=== PATIENT | female | born 1965 | race Caucasian/White ===

== ENCOUNTER 2023-04-15 15:23 | Outpatient (OUT) | payer BC, SELFPAY ==
--- NOTE | 2023-04-15 15:31 | XR_ITS ---
[facility] [place] [id number] Patient Name: LAWRENCE HARRISON MRN: [id number] date: 1965 Sex: F Assigned Patient Location: [facility] Current Patient Location: [facility] Accession/Order Number: [id number] Exam Date: 04/15/2023 15:34 Report Date: 04/15/2023 16:04 At the request of: SHAIKH CEASAR Procedure: XR chest 2V EXAM: XR chest 2V HISTORY: COPD Exacerbation COMPARISON: None. TECHNIQUE: Frontal and lateral views of the chest. FINDINGS: No focal consolidations or pleural effusions. Borderline heart size. Visualized osseous structures are unremarkable. IMPRESSION: No acute disease. Electronically authenticated by: TAMAR CALLEJAS Date: 04/15/2023 16:04
== END 2023-04-15 15:24 ==
LOC: RAD 15:26
PROVIDERS: PCP Family Medicine; Visit Provider Internal Medicine
DX: J44.1 Chronic obstructive pulmonary disease with (acute) exacerbation (principal)
CPT/HCPCS: 71046

== ENCOUNTER 2023-05-12 16:51 | Outpatient (OUT) | payer BC, SELFPAY ==
[2023-05-12 17:26] LABS: Anion Gap 8.5; BUN Creatinine Ratio 21.8; Calcium 9.2 mg/dL (8.5-10.1); Carbon Dioxide 34.4 mmol/L (21.0-32.0); Chloride 98 mmol/L (98-107); Estimated GFR (African America >60 (>=60); Estimated GFR (Non-African Ame 56 (>=60); Glucose 75 mg/dL (74-106); Potassium 3.9 mmol/L (3.5-5.1); Sodium 137 mmol/L (136-145)
== END 2023-05-12 16:52 | disposition home or self-care (01) ==
PROVIDERS: PCP Internal Medicine; Visit Provider Internal Medicine
DX: I10 Essential (primary) hypertension (principal)
CPT/HCPCS: 36415; 80048

== ENCOUNTER 2023-07-01 23:19 | Outpatient (OUT) | payer BC, SELFPAY | END 2023-07-01 23:20 | disposition home or self-care (01) | LOC: SLEEP 23:19 | PROVIDERS: PCP Internal Medicine; Visit Provider Internal Medicine | DX: G47.33 Obstructive sleep apnea (adult) (pediatric) (principal) | CPT/HCPCS: 95810 ==

== ENCOUNTER 2023-08-04 11:32 | Outpatient (OUT) | payer BC, SELFPAY ==
--- NOTE | 2023-08-04 12:00 | XR_ITS ---
[facility] [place] [id number] Patient Name: LAWRENCE HARRISON MRN: [id number] date: 1965 Sex: F Assigned Patient Location: [facility] Current Patient Location: [facility] Accession/Order Number: [id number] Exam Date: 08/04/2023 11:45 Report Date: 08/04/2023 13:20 At the request of: JOLANTA LEE Procedure: XR lumbar spine min 4V EXAM: XR lumbar spine min 4V HISTORY: Lumbar pain COMPARISON: None. TECHNIQUE: 4 views Findings/impression: Satisfactory alignment. Maintained vertebral body heights and disc spaces. No acute fracture or subluxation. No obstructive bowel gas pattern. Electronically authenticated by: LIS HURLEY Date: 08/04/2023 13:20
== END 2023-08-04 11:33 | disposition home or self-care (01) ==
LOC: RAD 11:33
PROVIDERS: PCP Internal Medicine; Visit Provider Family Medicine
DX: M51.36 Other intervertebral disc degeneration, lumbar region (principal)
CPT/HCPCS: 72110

== ENCOUNTER 2023-08-25 14:24 | Outpatient (OUT) | payer BC, SELFPAY ==
--- NOTE | 2023-08-25 15:46 | PM.CN ---
Consult Note: HPI Data of Consult Patient: new to practice Consult date: 08/25/23 Requesting Physician: Corine Frye MD Primary Care Provider: Shaikh Junior MD Consult Narrative Reason for consult: low back, bilateral lower extremity pain Narrative: 57yof who presents for evaluation. worsening low back pain that radiates into bilateral lower extremities. denies any trauma. physical therapy begins tomorrow. has tried robaxin, which helps somewhat, but makes her sleepy. tried tramadol with limited benefit. lumbar XR reviewed, which did not show significant acute pathology. denies adverse med side effects. cc:: CC: Corine Frye MD Review of Systems ROS Status of ROS 10 or more systems reviewed and unremarkable except as noted in history and below Meds Home Medications and Allergies Home Medications Medication Instructions Recorded Confirmed Type gabapentin 300 mg capsule 300 mg PO TID #90 caps 08/25/23 Rx Exam Narrative Exam Narrative: Psych-alert and oriented x 3. Attentive and appropriate, constitutionally normal, displays normal mood and affect per situation. There are no obvious deficits in memory, reasoning, or intellect.? Skin-no obvious rashes, bruising, erythema noted to the patient's area of pain.? Extremities- extremities are warm with minimal edema and palpable pulses. Lumbar-tenderness to palpation noted in the lumbar spine and paraspinal musculature. Pain is elicited with flexion, extension, and lateral rotation of the lumbar spine. Range of motion is diminished with these motions. Facet loading maneuvers are positive..? Strength-noted to be unremarkable with the exception of decreased strength rated at 4 out of 5 in bilateral quadriceps femoris, anterior tibialis. Sensory-no notable sensory deficits in the bilateral lower extremities to touch or pinprick in all dermatomal distributions with the exception to decreased sensation to the bilateral L4, 5 dermatomal distribution Coordination remains intact.? Gait remains non-antalgic Assessment and Plan Assessment and Plan (1) Lumbar stenosis with neurogenic claudication: (2) Lumbar spondylosis: Plan 57yof who presents for evaluation. starting PT tomorrow, as noted. discussed that given her symptoms and exam findings, likely spinal pathology that is causing her symptoms. ultimately will likely require lumbar MRI without contrast, but will first go through PT to assess benefits. medications reviewed. will have her trial gabapentin 300mg tid. she expressed understanding. will have her follow up after lumbar MRI is complete. also discussed that if her PCP preferred, we could place order for lumbar mri without contrast, although she is seeing PCP soon.
== END 2023-08-25 14:25 | disposition home or self-care (01) ==
PROVIDERS: PCP Internal Medicine; Visit Provider Anesthesiology
DX: M47.816 Spondylosis without myelopathy or radiculopathy, lumbar region (principal); M48.062 Spinal stenosis, lumbar region with neurogenic claudication
CPT/HCPCS: G0463

== ENCOUNTER 2023-08-26 07:46 | Outpatient (RCR) | payer BC, SELFPAY | END 2023-09-23 16:04 | disposition home or self-care (01) | LOC: PT 07:46 | PROVIDERS: PCP Internal Medicine; Visit Provider Family Medicine | DX: M54.9 Dorsalgia, unspecified (principal); R26.89 Other abnormalities of gait and mobility; G32.89 Other specified degenerative disorders of nervous system in diseases classified elsewhere; R26.9 Unspecified abnormalities of gait and mobility; R29.3 Abnormal posture | CPT/HCPCS: 97010; 97014; 97110; 97161 ==

== ENCOUNTER 2023-09-02 21:27 | Outpatient (OUT) | payer BC, SELFPAY | END 2023-09-02 21:28 | disposition home or self-care (01) | LOC: SLEEP 21:27 | PROVIDERS: PCP Family Medicine; Visit Provider Internal Medicine | DX: G47.33 Obstructive sleep apnea (adult) (pediatric) (principal) | CPT/HCPCS: 95811 ==

== ENCOUNTER 2023-09-05 12:47 | Outpatient (RCR) | payer BC, SELFPAY | END 2023-09-06 13:38 | disposition home or self-care (01) | LOC: PT 12:47 | PROVIDERS: PCP Family Medicine; Visit Provider Family Medicine | DX: M54.9 Dorsalgia, unspecified (principal) | CPT/HCPCS: 97750 ==

== ENCOUNTER 2023-10-09 10:19 | Outpatient (OUT) | payer BC, SELFPAY ==
--- NOTE | 2023-10-09 10:59 | PM.CN ---
Consult Note: HPI Data of Consult Patient: known to practice within the last 3 years Requesting Physician: Rachael Robles NP Primary Care Provider: Mane Kearney MD Consult Narrative Reason for consult: f/u Narrative: Jazz Juares a pleasant 57 year old female presents for evaluation and management of chronic low back pain. She has had over 3 months of moderate to severe low back pain with functional impairment and inadequate response to conservative care including NSAIDS (unless there are contraindication such as concurrent blood thinners), multiple oral or topical pain medications, and home exercise program/physical therapy.?Today rating pain 7/10 in low back and bilateral legs, reports cramping weakness numbness and tingling with ambulation. Patient has completed 8 PT sessions with no relief in symptoms or pain. Patient would like to discuss additional options. cc:: CC: Rachael Robles NP Review of Systems ROS Status of ROS 10 or more systems reviewed and unremarkable except as noted in history and below Musculoskeletal Reports: back pain Meds Home Medications and Allergies Home Medications Medication Instructions Recorded Confirmed Type gabapentin 300 mg capsule 300 mg PO TID #90 caps 08/25/23 Rx amlodipine 5 mg tablet 5 mg PO DAILY 08/28/23 08/28/23 History celecoxib 200 mg capsule 200 mg PO Q12H PRN pain 08/28/23 08/28/23 History cholecalciferol (vitamin D3) 50 50 mcg PO DAILY 08/28/23 08/28/23 History mcg (2,000 unit) tablet losartan 100 1 tab PO DAILY 08/28/23 08/28/23 History mg-hydrochlorothiazide 25 mg tablet methocarbamol 750 mg tablet 750 mg PO Q6H PRN spasms 08/28/23 08/28/23 History umeclidinium 62.5 mcg-vilanterol 1 inh inhalation Q24H 08/28/23 08/28/23 History 25 mcg/actuation powdr for inhalation (Anoro Ellipta) duloxetine 60 mg capsule,delayed 60 mg PO DAILY #30 caps 10/09/23 Rx release Allergies Allergy/AdvReac Type Severity Reaction Status Date / Time ciprofloxacin [From Cipro] Allergy Verified 08/28/23 10:13 Exam Constitutional Documenting provider has reviewed patient's vital signs: yes Common normals: no apparent distress, oriented x3, healthy appearing, alert and well nourished General appearance: cooperative HENMT Common normals: normocephalic, hearing grossly normal bilaterally and moist oral mucous membranes Head and scalp: normocephalic Eye Common normals: PERRL Pupil: PERRL Neck & C-Spine Common normals: full ROM General: normal visual inspection Chest Common normals: inspection of chest normal Respiratory Common normals: normal respiratory effort, no retractions and no use of accessory muscles Back & Pelvis Other: Lumbar-tenderness to palpation noted in the lumbar spine and paraspinal musculature. Pain is elicited with flexion, extension, and lateral rotation of the lumbar spine. Range of motion is diminished with these motions. Facet loading maneuvers are positive..? Strength-noted to be unremarkable with the exception of decreased strength rated at 4 out of 5 in bilateral quadriceps femoris, anterior tibialis. Sensory-no notable sensory deficits in the bilateral lower extremities to touch or pinprick in all dermatomal distributions with the exception to decreased sensation to the bilateral L4, 5 dermatomal distribution Neuro Common normals: oriented x3, CN's II-XII intact bilaterally, moves all extremities, no focal motor deficits, no sensory deficits noted and deep tendon reflexes 2+ bilaterally Sensorium/orientation: alert Motor exam: strength 5/5 throughout and no movement abnormalities noted Psych Common normals: mental status grossly normal, thought process normal, cooperative, affect normal, speech normal and activity/motor behavior normal Speech: normal speech Thought process: normal thought process Assessment and Plan Assessment and Plan (1) Lumbar stenosis with neurogenic claudication: (2) Lumbar spondylosis: Plan will obtain lumbar MRI without contrast as patient has failed to respond to conservative measures/medications, has completed 8 sessions of PT without benefit, continues to have chronic pain that disrupts her life. TWAN today 42% with moderate to severe pain, pain with ambulation, pain with ADLs, pain impacting sleep and social life. We will review MRI in the office to discuss injection/procedure therapy start duloxetine 60mg HS continue celebrex and flexeril f/u after MRI
== END 2023-10-09 10:20 | disposition home or self-care (01) ==
PROVIDERS: PCP Family Medicine; Visit Provider Nurse Practitioner
DX: M48.062 Spinal stenosis, lumbar region with neurogenic claudication (principal); M47.816 Spondylosis without myelopathy or radiculopathy, lumbar region
CPT/HCPCS: G0463

== ENCOUNTER 2023-10-16 13:18 | Outpatient (OUT) | payer BC, SELFPAY ==
--- NOTE | 2023-10-16 13:22 | MR_ITS ---
The [address] [address] Patient Name: LAWRENCE HARRISON MRN: [id number] date: 1965 Sex: F Assigned Patient Location: MRI Current Patient Location: MRI Accession/Order Number: [id number] Exam Date: 10/16/2023 13:40 Report Date: 10/16/2023 14:57 At the request of: ASH MARTÍNEZ Procedure: MR lumbar spine wo con EXAMINATION: MR lumbar spine wo con HISTORY: Lumbar Stenosis COMPARISON: 08/04/2023 TECHNIQUE: A variety of imaging planes and parameters were utilized for visualization of suspected pathology. FINDINGS: For the purposes of numbering, sagittal T2 image # 8 extends from the T11 vertebral body superiorly to the S4 level inferiorly. PARASPINAL AREA: Normal with no visible mass. BONES: Normal alignment with no acute fracture, spondylolisthesis or bone edema CORD/CAUDA EQUINA: Normal caliber, contour, and signal intensity. DISC LEVELS: 12-L1: No significant disc/facet abnormality, spinal stenosis, or foraminal stenosis. L1-L2: No significant disc/facet abnormality, spinal stenosis, or foraminal stenosis. L2-L3: Early degenerative disc disease is present without focal protrusion or neural impingement. L3-L4: Early degenerative disc disease is present without focal protrusion or neural impingement. L4-L5: Disc desiccation. Posterior broad-based disc protrusion extending up to 2 mm. Mild trefoil narrowing of the central canal. No foraminal stenosis L5-S1: No significant disc/facet abnormality, spinal stenosis, or foraminal stenosis. MR/MR lumbar spine wo con IMPRESSION: Degenerative changes most significant at L4-L5 where mild posterior central disc protrusion results in mild trefoil narrowing of the central canal Electronically authenticated by: NIA RODRIGUEZ Date: 10/16/2023 14:57
== END 2023-10-16 13:19 | disposition home or self-care (01) ==
LOC: MRI 13:18
PROVIDERS: PCP Family Medicine; Visit Provider Nurse Practitioner
DX: M48.061 Spinal stenosis, lumbar region without neurogenic claudication (principal); M51.36 Other intervertebral disc degeneration, lumbar region
CPT/HCPCS: 72148

== ENCOUNTER 2023-11-06 09:07 | Outpatient (OUT) | payer BC, SELFPAY ==
--- OUTSIDE RECORDS SUMMARY | 2023-11-06 09:11 | XMS_ITS | CCD ---
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 Operator Name Role Phone JESUS, DR JOLANTA Avina Primary Care Unavailable EDDIE ., DR VAMSHI Correa Consulting Unavailable JESUS, DR JOLANTA Avina Admitting Unavailable JESUS, DR JOLANTA Avina Attending Unavailable SUSY, DR JH Hunter Consulting Unavailable JESUS, DR JOLANTA Avina Consulting Unavailable KOLTON ., MR BUCKLEY Consulting Unavailable STRAWSER, DEL Consulting Unavailable CHOU, MALCOLM Consulting Unavailable JESUS, DR JOLANTA Avina Admitting Unavailable JESUS, DR JOLANTA Avina Attending Unavailable JESUS, DR JOLANTA Avina Primary Care Unavailable CAMBRIA HEIGHTS, DR NIA Uriostegui Consulting Unavailable NADGERALD, DR JOLANTA Avina Consulting Unavailable Melva BACK, Corine Puentes Attending Unavailable DAYANARAR, JOLANTA Attending Unavailable Allergies Allergy Classification Reported Allergen(s) Allergy Type Date of Onset Reaction(s) Facility (1 source) Ciprofloxacin Drug Allergy 10-19-2014 [facility] Repository Problems Problem Classification Problem Date Documented Da te Episodic/Chronic Chronic obstructive pulmonary disease and bronchiectasis (6 sources) Chronic obstructive pulmonary disease, unspecified; 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: [Chronic obstructive pulmonary disease with (acute) lower respiratory infection] Onset: 11-20-2022 Chronic Essential hypertension (1 source) Essential (primary) hypertension; 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: [ESSENTIAL PRIMARY HYPERTENSION] Onset: 11-20-2022 Chronic Other aftercare (1 source) Other tank terminal gauger (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) drug therapy; 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: [OTH SENIOR LIVING CURRENT DRUG THERAPY] Onset: 11-20-2022 Episodic Other aftercare (1 source) terminal computer operator (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) use of opiate analgesic; 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: [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 ELECTRONICS TECHNICIAN CURRNT USE OPIATE ANALGES] Onset: 11-20-2022 Episodic Other lower respiratory disease (2 sources) Shortness of breath; 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: [SHORTNESS OF BREATH] Onset: 11-10-2022 Episodic Other screening for suspected conditions (not mental disorders or infectious disease) (1 source) Encounter for screening mammogram for malignant neoplasm of breast; 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: [ENC SCR MAMMO MALIG NEOPLASM BREAST] Onset: 02-01-2023 Episodic Pneumonia (except that caused by tuberculosis or sexually transmitted disease) (1 source) Pneumonia, unspecified organism; 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: [PNEUMONIA UNSPECIFIED ORGANISM] Onset: 11-20-2022 Episodic Residual codes; unclassified (1 source) Family history of malignant neoplasm of digestive organs; 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: [FAM HX MALIG NEOPLASM DIGESTIV ORGN] Onset: 02-01-2023 Episodic Residual codes; unclassified (1 source) Family history of malignant neoplasm of breast; 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: [FAMILY HX MALIG NEOPLASM OF BREAST] Onset: 02-01-2023 Episodic Residual codes; unclassified (1 source) Family history of malignant neoplasm of trachea, bronchus and lung; 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: [FAM HX MALIG NEOPLSM TRACH BRON LNG] Onset: 02-01-2023 Episodic Residual codes; unclassified (1 source) Family history of stroke; 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: [FAMILY HISTORY OF STROKE] Onset: 11-20-2022 Episodic Residual codes; unclassified (1 source) Edema, unspecified; 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: [EDEMA UNSPECIFIED] Onset: 11-20-2022 Episodic Respiratory failure; insufficiency; arrest (adult) (1 source) Acute respiratory failure with hypoxia; 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: [ACUTE RESPIRATORY FAIL W/HYPOXIA] Onset: 11-20-2022 Episodic Substance-related disorders (1 source) Nicotine dependence, cigarettes, uncomplicated; 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: [NICOTINE DEPEND CIGARETTES UNCOMP] Onset: 11-20-2022 Chronic Unclassified (1 source) CONTACT W/AND (SUSP) EXPOS COVID-19; 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: [CONTACT W/AND (SUSP) EXPOS COVID-19] Onset: 11-20-2022 Results Test Name Value Interpretation Reference Range Facil ity HEMOGLOBINon 01-29-2023 Hemoglobin (Bld) [Mass/Vol] 14.6 g/dL Normal 12.0-16.0 [facility] Comment on above: Performed By: #### H GB #### [facility] [address] [place] [address] Dr. Evangelist Chicas MG MAMM SCREEN 3D MANJIT CADon 01-29-2023 MG MAMM SCREEN 3D MANJIT CAD Patient: LAWRENCE HARRISON Exam Date: 01/29/2023 : 1965 Gender:F Ordering : DR JOLANTA LEE . Admission #: [id number] Family : Order #: [id number] CLICK HERE TO VIEW EXAM RADIOLOGY REPORT PROCEDURE: MAMMOGRAM SCREENING 3D BILATERAL CAD COMPARISON: MG MAMM SCREEN MANJIT W CAD, 08/31/2019. MG MAMM SCREEN 3D MANJIT CAD, 09/05/2021. INDICATIONS: Screening mammography Calculator Name NCI Breast Cancer Risk Assessment Tool 5 Year Breast Cancer Risk 1.40% Lifetime Breast Cancer Risk 7.60% Personal Breast Cancer No Personal Ovarian Cancer No Treatments None Family Cancers Grandmother-maternal with breast cancer at age 65; Grandfather-maternal with lung cancer at age 63; Mother with rectal cancer at age 75. LOCATION: [facility] BREAST COMPOSITION: Scattered areas fibroglandular density. FINDINGS: DIAGNOSTIC CATEGORY 1--NEGATIVE. NO CHANGE FROM COMPARISON ASSESSMENT. Scattered benign-appearing calcifications are present. RIGHT BREAST: No significant suspicious finding. LEFT BREAST: No significant suspicious finding. RECOMMENDATIONS: ROUTINE MAMMOGRAM AND CLINICAL EVALUATION IN 12 MONTHS. PLEASE NOTE: A NORMAL MAMMOGRAM DOES NOT EXCLUDE THE POSSIBILITY OF BREAST CANCER. A CLINICALLY SUSPICIOUS PALPABLE LUMP SHOULD BE BIOPSIED. Dictated by: Nia Reagan MD on 01/29/2023 at 09:24 Approved by: Nia Reagan MD on 01/29/2023 at 09:29 Normal [facility] CBC AUTO DIFFon 11-14-2022 BASO # 0.0 103/ul Normal 0.0-0.1 [facility] Comment on above: Performed By: #### B MP #### [facility] [address] [address] [address] Evangelist Chicas Basophils/100 WBC (Bld) 0.1 % Critically low 0.2-2.0 [facility] Comment on above: Performed By: #### B MP #### [facility] [address] [place] [address] Dr. Evangelist Chicas EO # 0.0 103/ul Normal 0.0-0.7 [facility] Comment on above: Performed By: #### B MP #### [facility] [address] [address] [address] Evangelist Chicas Eosinophils/100 WBC (Bld) 0.1 % Critically low 0.9-7.0 [facility] Comment on above: Performed By: #### B MP #### [facility] [address] [place] [address] Dr. Evangelist Chicas Erythrocyte distribution width (RBC) [Ratio] 13.1 % Normal 11.0-15.0 [facility] Comment on above: Performed By: #### B MP #### [facility] [address] [place] [address] Dr. Evangelist Chicas Hematocrit (Bld) [Volume fraction] 41.4 % Normal 36.0-48.0 [facility] Comment on above: Performed By: #### B MP #### [facility] [address] [place] [address] Dr. Evangelist Chicas Hemoglobin (Bld) [Mass/Vol] 13.0 g/dL Normal 12.0-16.0 [facility] Comment on above: Performed By: #### B MP #### [facility] [address] [place] [address] Dr. Evangelist Chicas IG # 0.03 10e3/ul Normal 0.00-0.03 [facility] Comment on above: Performed By: #### B MP #### [facility] [address] [place] [address] Dr. Evangelist Chicas IG % 0.4 % Normal 0.0-0.5 [facility] Comment on above: Performed By: #### B MP #### [facility] [address] [place] [address] Dr. Evangelist Chicas LYMPH # 0.4 103/ul Critically low 1.2-3.8 [facility] Comment on above: Performed By: #### B MP #### [facility] [address] [place] [address] Dr. Evangelist Chicas Lymphocytes/100 WBC (Bld) 4.7 % Critically low 20.5-60.0 [facility] Comment on above: Performed By: #### B MP #### [facility] [address] [place] [address] Dr. Evangelist Chicas MANUAL DIFF REQ NO Normal [facility] Comment on above: Performed By: #### B MP #### [facility] [address] [place] [address] Dr. Evangelist Chicas MCH (RBC) [Entitic mass] 29.1 pg Normal 26.7-34.0 [facility] Comment on above: Performed By: #### B MP #### [facility] [address] [place] [address] Dr. Evangelist Chicas MCHC (RBC) [Mass/Vol] 31.4 g/dL Normal 29.9-35.2 [facility] Comment on above: Performed By: #### B MP #### [facility] [address] [place] [address] Dr. Evangelist Chicas MCV (RBC) [Entitic vol] 92.8 fL Normal 81.0-99.0 [facility] Comment on above: Performed By: #### B MP #### [facility] [address] [place] [address] Dr. Evangelist Chicas MONO # 0.1 103/ul Critically low 0.3-0.8 [facility] Comment on above: Performed By: #### B MP #### [facility] [address] [place] [address] Dr. Evangelist Chicas Monocytes/100 WBC (Bld) 1.8 % Normal 1.7-12.0 [facility] Comment on above: Performed By: #### B MP #### [facility] [address] [place] [address] Dr. Evangelist Chicas NEUT # 6.8 103/ul Critically high 1.4-6.5 [facility] Comment on above: Performed By: #### B MP #### [facility] [address] [place] [address] Dr. Evangelist Chicas Neutrophils/100 WBC (Bld) 92.9 % Critically high 43.0-75.0 [facility] Comment on above: Performed By: #### B MP #### [facility] [address] [place] [address] Dr. Evangelist Chicas Platelet mean volume (Bld) [Entitic vol] 11.3 fL Normal 9.5-13.5 [facility] Comment on above: Performed By: #### B MP #### [facility] [address] [place] [address] Dr. Evangelist Chicas PLT 109 103/ul Critically low 150-450 [facility] Comment on above: Performed By: #### B MP #### [facility] [address] [address] [address] Evangelist Chicas RBC 4.46 106/ul Normal 4.20-5.40 [facility] Comment on above: Performed By: #### B MP #### [facility] [address] [place] [address] Dr. Evangelist Chicas WBC 7.4 103/ul Normal 4.0-11.0 [facility] Comment on above: Performed By: #### B MP #### [facility] [address] [place] [address] Dr. Evangelist Chicas PROF CHEM 8 (BAS METB)on Anion gap [Moles/Vol] 11.8 mmol/L Normal [facility] Comment on above: Performed By: #### B MP #### [facility] [address] [place] [address] Dr. Evangelist Chicas Calcium [Mass/Vol] 9.3 mg/dL Normal 8.5-10.1 [facility] Comment on above: Performed By: #### B MP #### [facility] [address] [place] [address] Dr. Evangelist Chicas Chloride [Moles/Vol] 99 mmol/L Normal 98-107 [facility] Comment on above: Performed By: #### B MP #### [facility] [address] [place] [address] Dr. Evangelist Chicas CO2 [Moles/Vol] 31.6 mmol/L Normal 21.0-32.0 [facility] Comment on above: Performed By: #### B MP #### [facility] [address] [place] [address] Dr. Evangelist Chicas Creatinine [Mass/Vol] 0.75 mg/dL Normal 0.55-1.02 [facility] Comment on above: Performed By: #### B MP #### [facility] [address] [address] [address] Evangelist Chicas EGFR-AF SENEGALESE >60 Normal >=60 [facility] Comment on above: Performed By: #### B MP #### [facility] [address] [address] [address] Evangelist Chicas EGFR-NON AF SENEGALESE >60 Normal >=60 [facility] Comment on above: Performed By: #### B MP #### [facility] [address] [address] [address] Evangelist Chicas Glucose [Mass/Vol] 162 mg/dL Critically high 74-106 [facility] Comment on above: Performed By: #### B MP #### [facility] [address] [place] [address] Dr. Evangelist Chicas Potassium [Moles/Vol] 4.4 mmol/L Normal 3.5-5.1 [facility] Comment on above: Performed By: #### B MP #### [facility] [address] [place] [address] Dr. Evangelist Chicas Sodium [Moles/Vol] 138 mmol/L Normal 136-145 [facility] Comment on above: Performed By: #### B MP #### [facility] [address] [address] [address] Evangelist Chicas Urea nitrogen [Mass/Vol] 32.0 mg/dL Critically high 7.0-18.0 [facility] Comment on above: Performed By: #### B MP #### [facility] [address] [address] [address] Evangelist Chicas Urea nitrogen/Creatinin e [Mass ratio] 42.7 mg/mg Normal [facility] Comment on above: Performed By: #### B MP #### [facility] [address] [place] [address] Dr. Evangelist Chicas CBC AUTO DIFFon 11-13-2022 BASO # 0.0 103/ul Normal 0.0-0.1 [facility] Comment on above: Performed By: #### C BC #### [facility] [address] [place] [address] Dr. Evangelist Chicas Basophils/100 WBC (Bld) 0.1 % Critically low 0.2-2.0 [facility] Comment on above: Performed By: #### C BC #### [facility] [address] [place] [address] Dr. Evangelist Chicas EO # 0.0 103/ul Normal 0.0-0.7 [facility] Comment on above: Performed By: #### C BC #### [facility] [address] [place] [address] Dr. Evangelist Chicas Eosinophils/100 WBC (Bld) 0.0 % Critically low 0.9-7.0 [facility] Comment on above: Performed By: #### C BC #### [facility] [address] [place] [address] Dr. Evangelist Chicas Erythrocyte distribution width (RBC) [Ratio] 12.9 % Normal 11.0-15.0 [facility] Comment on above: Performed By: #### C BC #### [facility] [address] [place] [address] Dr. Evangelist Chicas Hematocrit (Bld) [Volume fraction] 39.0 % Normal 36.0-48.0 [facility] Comment on above: Performed By: #### C BC #### [facility] [address] [place] [address] Dr. Evangelist Chicas Hemoglobin (Bld) [Mass/Vol] 12.3 g/dL Normal 12.0-16.0 [facility] Comment on above: Performed By: #### C BC #### [facility] [address] [place] [address] Dr. Evangelist Chicas IG # 0.04 10e3/ul Critically high 0.00-0.03 [facility] Comment on above: Performed By: #### C BC #### [facility] [address] [place] [address] Dr. Evangelist Chicas IG % 0.4 % Normal 0.0-0.5 [facility] Comment on above: Performed By: #### C BC #### [facility] [address] [place] [address] Dr. Evangelist Chicas LYMPH # 0.5 103/ul Critically low 1.2-3.8 [facility] Comment on above: Performed By: #### C BC #### [facility] [address] [address] [address] Evangelist Chicas Lymphocytes/100 WBC (Bld) 4.5 % Critically low 20.5-60.0 [facility] Comment on above: Performed By: #### C BC #### [facility] [address] [place] [address] Dr. Evangelist Chicas MANUAL DIFF REQ NO Normal [facility] Comment on above: Performed By: #### C BC #### [facility] [address] [place] [address] Dr. Evangelist Chicas MCH (RBC) [Entitic mass] 29.7 pg Normal 26.7-34.0 [facility] Comment on above: Performed By: #### C BC #### [facility] [address] [place] [address] Dr. Evangelist Chicas MCHC (RBC) [Mass/Vol] 31.5 g/dL Normal 29.9-35.2 [facility] Comment on above: Performed By: #### C BC #### [facility] [address] [place] [address] Dr. Evangelist Chicas MCV (RBC) [Entitic vol] 94.2 fL Normal 81.0-99.0 [facility] Comment on above: Performed By: #### C BC #### [facility] [address] [place] [address] Dr. Evangelist Chicas MONO # 0.2 103/ul Critically low 0.3-0.8 [facility] Comment on above: Performed By: #### C BC #### [facility] [address] [place] [address] Dr. Evangelist Chicas Monocytes/100 WBC (Bld) 1.5 % Critically low 1.7-12.0 [facility] Comment on above: Performed By: #### C BC #### [facility] [address] [address] [address] Evangelist Chicas NEUT # 10.5 103/ul Critically high 1.4-6.5 [facility] Comment on above: Performed By: #### C BC #### [facility] [address] [address] [address] Evangelist Chicas Neutrophils/100 WBC (Bld) 93.5 % Critically high 43.0-75.0 [facility] Comment on above: Performed By: #### C BC #### [facility] [address] [address] [address] Evangelist Chicas Platelet mean volume (Bld) [Entitic vol] 10.4 fL Normal 9.5-13.5 [facility] Comment on above: Performed By: #### C BC #### [facility] [address] [place] [address] Dr. Evangelist Chicas PLT 169 103/ul Normal 150-450 [facility] Comment on above: Performed By: #### C BC #### [facility] [address] [address] [address] Evangelist Chicas RBC 4.14 106/ul Critically low 4.20-5.40 [facility] Comment on above: Performed By: #### C BC #### [facility] [address] [place] [address] Dr. Evangelist Chicas WBC 11.2 103/ul Critically high 4.0-11.0 [facility] Comment on above: Performed By: #### C BC #### [facility] [address] [place] [address] Dr. Evangelist Chicas CULTURE SPUTUMon 11-13-2022 CULTURE SPUTUM Culture Observations : NORMAL RESPIRATORY SHAINA. Normal [facility] Comment on above: Performed By: #### B MP #### [facility] [address] [place] [address] Dr. Evangelist Chicas PROF CHEM 8 (BAS METB)on Anion gap [Moles/Vol] 9.2 mmol/L Normal [facility] Comment on above: Performed By: #### D DIM #### [facility] [address] [address] [address] Evangelist Chicas Calcium [Mass/Vol] 9.1 mg/dL Normal 8.5-10.1 [facility] Comment on above: Performed By: #### D DIM #### [facility] [address] [address] [address] Evangelist Chicas Chloride [Moles/Vol] 100 mmol/L Normal 98-107 [facility] Comment on above: Performed By: #### D DIM #### [facility] [address] [address] [address] Evangelist Chicas CO2 [Moles/Vol] 33.8 mmol/L Critically high 21.0-32.0 [facility] Comment on above: Performed By: #### D DIM #### [facility] [address] [address] [address] Evangelist Chicas Creatinine [Mass/Vol] 0.85 mg/dL Normal 0.55-1.02 [facility] Comment on above: Performed By: #### D DIM #### [facility] [address] [address] [address] Evangelist Chicas EGFR-AF SENEGALESE >60 Normal >=60 [facility] Comment on above: Performed By: #### D DIM #### [facility] [address] [address] [address] Evangelist Chicas EGFR-NON AF SENEGALESE >60 Normal >=60 [facility] Comment on above: Performed By: #### D DIM #### [facility] [address] [address] [address] Evangelist Chicas Glucose [Mass/Vol] 151 mg/dL Critically high 74-106 [facility] Comment on above: Performed By: #### D DIM #### [facility] [address] [address] [address] Evangelist Chicas Potassium [Moles/Vol] 4.0 mmol/L Normal 3.5-5.1 [facility] Comment on above: Performed By: #### D DIM #### [facility] [address] [place] [address] Dr. Evangelist Chicas Sodium [Moles/Vol] 139 mmol/L Normal 136-145 [facility] Comment on above: Performed By: #### D DIM #### [facility] [address] [place] [address] Dr. Evangelist Chicas Urea nitrogen [Mass/Vol] 29.0 mg/dL Critically high 7.0-18.0 [facility] Comment on above: Performed By: #### D DIM #### [facility] [address] [place] [address] Dr. Evangelist Chicas Urea nitrogen/Creatinin e [Mass ratio] 34.1 mg/mg Normal [facility] Comment on above: Performed By: #### D DIM #### [facility] [address] [place] [address] Dr. Evangelist Chicas CBC AUTO DIFFon 11-12-2022 BASO # 0.0 103/ul Normal 0.0-0.1 [facility] Comment on above: Performed By: #### C BC #### [facility] [address] [place] [address] Dr. Evangelist Chicas Basophils/100 WBC (Bld) 0.1 % Critically low 0.2-2.0 [facility] Comment on above: Performed By: #### C BC #### [facility] [address] [place] [address] Dr. Evangelist Chicas EO # 0.0 103/ul Normal 0.0-0.7 [facility] Comment on above: Performed By: #### C BC #### [facility] [address] [place] [address] Dr. Evangelist Chicas Eosinophils/100 WBC (Bld) 0.0 % Critically low 0.9-7.0 [facility] Comment on above: Performed By: #### C BC #### [facility] [address] [place] [address] Dr. Evangelist Chicas Erythrocyte distribution width (RBC) [Ratio] 12.8 % Normal 11.0-15.0 [facility] Comment on above: Performed By: #### C BC #### [facility] [address] [address] [address] Evangelist Chicas Hematocrit (Bld) [Volume fraction] 41.5 % Normal 36.0-48.0 [facility] Comment on above: Performed By: #### C BC #### [facility] [address] [address] [address] Evangelist Chcias Hemoglobin (Bld) [Mass/Vol] 13.0 g/dL Normal 12.0-16.0 [facility] Comment on above: Performed By: #### C BC #### [facility] [address] [address] [address] Evangelist Chicas IG # 0.04 10e3/ul Critically high 0.00-0.03 [facility] Comment on above: Performed By: #### C BC #### [facility] [address] [place] [address] Dr. Evangelist Chicas IG % 0.3 % Normal 0.0-0.5 [facility] Comment on above: Performed By: #### C BC #### [facility] [address] [address] [address] Evangelist Chicas LYMPH # 0.5 103/ul Critically low 1.2-3.8 [facility] Comment on above: Performed By: #### C BC #### [facility] [address] [place] [address] Dr. Evangelist Chicas Lymphocytes/100 WBC (Bld) 3.7 % Critically low 20.5-60.0 [facility] Comment on above: Performed By: #### C BC #### [facility] [address] [address] [address] Evangelist Chicas MANUAL DIFF REQ NO Normal [facility] Comment on above: Performed By: #### C BC #### [facility] [address] [place] [address] Dr. Evangelist Chicas MCH (RBC) [Entitic mass] 29.5 pg Normal 26.7-34.0 [facility] Comment on above: Performed By: #### C BC #### [facility] [address] [address] [address] Evangelist Chicas MCHC (RBC) [Mass/Vol] 31.3 g/dL Normal 29.9-35.2 [facility] Comment on above: Performed By: #### C BC #### [facility] [address] [address] [address] Evangelist Chicas MCV (RBC) [Entitic vol] 94.3 fL Normal 81.0-99.0 [facility] Comment on above: Performed By: #### C BC #### [facility] [address] [address] [address] Evangelist Chicas MONO # 0.2 103/ul Critically low 0.3-0.8 [facility] Comment on above: Performed By: #### C BC #### [facility] [address] [address] [address] Evangelist Chicas Monocytes/100 WBC (Bld) 1.3 % Critically low 1.7-12.0 [facility] Comment on above: Performed By: #### C BC #### [facility] [address] [address] [address] Evangelist Chicas NEUT # 12.4 103/ul Critically high 1.4-6.5 [facility] Comment on above: Performed By: #### C BC #### [facility] [address] [place] [address] Dr. Evangelist Chicas Neutrophils/100 WBC (Bld) 94.6 % Critically high 43.0-75.0 [facility] Comment on above: Performed By: #### C BC #### [facility] [id number] Evangelist Chicas Platelet mean volume (Bld) [Entitic vol] 9.9 fL Normal 9.5-13.5 [facility] Comment on above: Performed By: #### C BC #### [facility] [address] [place] [address] Dr. Evangelist Chicas PLT 189 103/ul Normal 150-450 [facility] Comment on above: Performed By: #### C BC #### [facility] [address] [address] [address] Evangelist Chicas RBC 4.40 106/ul Normal 4.20-5.40 [facility] Comment on above: Performed By: #### C BC #### [facility] [address] [address] [address] Evangelist Chicas WBC 13.1 103/ul Critically high 4.0-11.0 [facility] Comment on above: Performed By: #### C BC #### [facility] [address] [address] [address] Evangelist Chicas ECHOCARDIO M/2D COMPLETEon 0 11-12-2022 ECHOCARDIO M/2D COMPLETE Patient: LAWRENCE HARRISON Exam Date: 11/12/2022 : 1965 Gender:F Ordering : DR JOLANTA LEE . Admission #: [id number] Family : DR VAMSHI MORGAN . Order #: [id number] CLICK HERE TO VIEW EXAM ECHOCARDIOGRAM REPORT PROCEDURE: CARDIO PULMONARY ECHOCARDIO M/2D COMP INDICATIONS: Hypoxia, COPD, Lower extremity edema, Smoker, HTN COMPARISON: None. DESCRIPTION: COMPLETE ECHOCARDIOGRAM Real-time transthoracic echocardiography with 2D, M-mode, spectral and color flow Doppler performed. QUALITY: Technical quality was adequate. LEFT VENTRICLE: Normal chamber size. Moderate concentric left ventricular hypertrophy. LV EF: Global left ventricular systolic function is normal. Visual estimation of left ventricular ejection fraction is 65%. DIASTOLIC: Normal diastolic function. ATRIAL SEPTUM: Inadequately seen. LEFT ATRIUM: Normal chamber size. RIGHT ATRIUM: Normal chamber size. RIGHT VENTRICLE: Normal chamber size. Normal right ventricular systolic function. TRICUSPID VALVE: Normal mobility and thickness. No stenosis with trivial regurgitation. Moderate pulmonary hypertension. RVSP 55mmHg MITRAL VALVE: Normal mobility and thickness. No mitral valve prolapse. No evidence of mitral valve stenosis. There is no mitral annular calcification. Trivial mitral regurgitation. AORTIC VALVE: Normal trileaflet appearance. Normal leaflet mobility. Slightly increased velocities across the aortic valve with no evidence of aortic valve stenosis. No aortic regurgitation. AORTIC ROOT: Normal diameter and appearance. PULMONIC VALVE: Normal thickness and mobility. No stenosis. Trivial regurgitation. PERICARDIUM: Trivial pericardial effusion. IVC: Mild dilatation. Measures 2.1cm with no collapse. CONCLUSION: Global left ventricular systolic function is normal; visually estimated ejection fraction is 60 to 65%. Moderate left ventricular hypertrophy. Normal diastolic function. The right ventricle is normal in size and systolic function. Moderately elevated right-sided pressures. No significant valvular abnormalities. Trivial pericardial effusion. Adult Echocardiography Procedure Report Left Ventricle LVEDD (3.7 - 5.6 cm): 5.13 cm LVESD (2.2 - 4.0 cm): 3.25 cm LVIVS thickness (0.6 - 1.2 cm): 1.52 cm LVPW thickness (0.5 - 1.0 cm): 1.36 cm e': 0.11 m/s E - e': 10.14 LVOT Max Gradient: 8.75 mm[Hg] Peak Velocity (LVOT): 1.48 m/s Mean Velocity (LVOT): 1.00 m/s LVOT Diameter 1.89 cm Left Ventricular Ejection Fraction: 66.11 %, 66.11 % Left Atrium LA Volume Index (2D A2C): 73.40 ml, 73.40 ml Left Atrium Systolic Dimension: 3.58 cm Mitral Valve MV E to A Ratio: 0.94 Mitral Valve A-Wave Peak Velocity: 1.14 m/s Mitral Valve E-Wave Peak Velocity: 1.07 m/s Right Ventricle RV Internal Diastolic Dimension: 3.12 cm Aorta AO Root Diam: 2.72 cm Ascending Ao Diam: 2.70 cm Aortic Valve AoV Area (Peak Luciano): 1.97 cm2, 1.97 cm2 AoV Area (VTI): 2.18 cm2, 2.18 cm2 Peak Velocity(Antegrade Flow): 2.10 m/s Peak Gradient(Antegrade Flow): 17.72 mm[Hg] Mean Velocity(Antegrade Flow): 1.33 m/s Mean Gradient(Antegrade Flow): 8.12 mm[Hg] Velocity Time Integral: 37.14 cm Tricuspid Valve Peak Velocity (Regurgitant Flow): 3.20 m/s, 3.42 m/s Peak Velocity: 0.50 m/s Pulmonic Valve Peak Velocity: 1.67 m/s, 1.63 m/s Peak Gradient: 11.10 mm[Hg], 10.67 mm[Hg] Right Atrium Right Atrium Systolic Pressure: 36.49 ml, 36.49 ml Dictated by: Nayely Goncalves M.D. on 11/12/2022 at 13:52 Approved by: Nayely Goncalves M.D. on 11/12/2022 at 13:56 Normal [facility] PROF CHEM 8 (BAS METB)on Anion gap [Moles/Vol] 10.2 mmol/L Normal [facility] Comment on above: Performed By: #### B MP #### [facility] [address] [place] [address] Dr. Evangelist Chicas Calcium [Mass/Vol] 9.2 mg/dL Normal 8.5-10.1 [facility] Comment on above: Performed By: #### B MP #### [facility] [address] [place] [address] Dr. Evangelist Chicas Chloride [Moles/Vol] 99 mmol/L Normal 98-107 [facility] Comment on above: Performed By: #### B MP #### [facility] [address] [place] [address] Dr. Evangelist Chicas CO2 [Moles/Vol] 31.5 mmol/L Normal 21.0-32.0 [facility] Comment on above: Performed By: #### B MP #### [facility] [address] [place] [address] Dr. Evangelist Chicas Creatinine [Mass/Vol] 0.87 mg/dL Normal 0.55-1.02 [facility] Comment on above: Performed By: #### B MP #### [facility] [address] [place] [address] Dr. Evangelist Chicas EGFR-AF SENEGALESE >60 Normal >=60 [facility] Comment on above: Performed By: #### B MP #### [facility] [address] [place] [address] Dr. Evangelist Chicas EGFR-NON AF SENEGALESE >60 Normal >=60 [facility] Comment on above: Performed By: #### B MP #### [facility] [address] [place] [address] Dr. Evangelist Chicas Glucose [Mass/Vol] 168 mg/dL Critically high 74-106 [facility] Comment on above: Performed By: #### B MP #### [facility] [address] [place] [address] Dr. Evangelist Chicas Potassium [Moles/Vol] 3.7 mmol/L Normal 3.5-5.1 [facility] Comment on above: Performed By: #### B MP #### [facility] [address] [place] [address] Dr. Evangelist Chicas Sodium [Moles/Vol] 137 mmol/L Normal 136-145 [facility] Comment on above: Performed By: #### B MP #### [facility] [address] [place] [address] Dr. Evangelist Chicas Urea nitrogen [Mass/Vol] 28.0 mg/dL Critically high 7.0-18.0 [facility] Comment on above: Performed By: #### B MP #### [facility] [address] [place] [address] Dr. Evangelist Chicas Urea nitrogen/Creatinin e [Mass ratio] 32.2 mg/mg Normal [facility] Comment on above: Performed By: #### B MP #### [facility] [address] [place] [address] Dr. Evangelist Chicas CBC AUTO DIFFon 11-11-2022 BASO # 0.0 103/ul Normal 0.0-0.1 [facility] Comment on above: Performed By: #### C BC #### [facility] [address] [place] [address] Dr. Evangelist Chicas Basophils/100 WBC (Bld) 0.2 % Normal 0.2-2.0 [facility] Comment on above: Performed By: #### C BC #### [facility] [address] [place] [address] Dr. Evangelist Chicas EO # 0.0 103/ul Normal 0.0-0.7 [facility] Comment on above: Performed By: #### C BC #### [facility] [address] [place] [address] Dr. Evangelist Chicas Eosinophils/100 WBC (Bld) 0.0 % Critically low 0.9-7.0 [facility] Comment on above: Performed By: #### C BC #### [facility] [address] [place] [address] Dr. Evangelist Chicas Erythrocyte distribution width (RBC) [Ratio] 12.7 % Normal 11.0-15.0 [facility] Comment on above: Performed By: #### C BC #### [facility] [address] [place] [address] Dr. Evangelist Chicas Hematocrit (Bld) [Volume fraction] 41.7 % Normal 36.0-48.0 [facility] Comment on above: Performed By: #### C BC #### [facility] [address] [place] [address] Dr. Evangelist Chicas Hemoglobin (Bld) [Mass/Vol] 13.0 g/dL Normal 12.0-16.0 [facility] Comment on above: Performed By: #### C BC #### [facility] [address] [place] [address] Dr. Evangelist Chicas IG # 0.03 10e3/ul Normal 0.00-0.03 [facility] Comment on above: Performed By: #### C BC #### [facility] [address] [place] [address] Dr. Evangelist Chicas IG % 0.5 % Normal 0.0-0.5 [facility] Comment on above: Performed By: #### C BC #### [facility] [address] [place] [address] Dr. Evangelist Chicas LYMPH # 0.4 103/ul Critically low 1.2-3.8 [facility] Comment on above: Performed By: #### C BC #### [facility] [address] [place] [address] Dr. Evangelist Chicas Lymphocytes/100 WBC (Bld) 5.8 % Critically low 20.5-60.0 [facility] Comment on above: Performed By: #### C BC #### [facility] [address] [place] [address] Dr. Evangelist Chicas MANUAL DIFF REQ NO Normal [facility] Comment on above: Performed By: #### C BC #### [facility] [address] [place] [address] Dr. Evangelist Chicas MCH (RBC) [Entitic mass] 29.3 pg Normal 26.7-34.0 [facility] Comment on above: Performed By: #### C BC #### [facility] [address] [place] [address] Dr. Evangelist Chicas MCHC (RBC) [Mass/Vol] 31.2 g/dL Normal 29.9-35.2 [facility] Comment on above: Performed By: #### C BC #### [facility] [address] [place] [address] Dr. Evangelist Chicas MCV (RBC) [Entitic vol] 93.9 fL Normal 81.0-99.0 [facility] Comment on above: Performed By: #### C BC #### [facility] [address] [place] [address] Dr. Evangelist Chicas MONO # 0.0 103/ul Critically low 0.3-0.8 [facility] Comment on above: Performed By: #### C BC #### [facility] [address] [place] [address] Dr. Evangelist Chicas Monocytes/100 WBC (Bld) 0.6 % Critically low 1.7-12.0 [facility] Comment on above: Performed By: #### C BC #### [facility] [address] [place] [address] Dr. Evangelist Chicas NEUT # 6.0 103/ul Normal 1.4-6.5 [facility] Comment on above: Performed By: #### C BC #### [facility] [address] [place] [address] Dr. Evangelist Chicas Neutrophils/100 WBC (Bld) 92.9 % Critically high 43.0-75.0 [facility] Comment on above: Performed By: #### C BC #### [facility] [address] [place] [address] Dr. Evangelist Chicas Platelet mean volume (Bld) [Entitic vol] 10.8 fL Normal 9.5-13.5 [facility] Comment on above: Performed By: #### C BC #### [facility] [address] [address] [address] Evangelist Chicas PLT 141 103/ul Critically low 150-450 [facility] Comment on above: Performed By: #### C BC #### [facility] [address] [place] [address] Dr. Evangelist Chicas RBC 4.44 106/ul Normal 4.20-5.40 [facility] Comment on above: Performed By: #### C BC #### [facility] [address] [address] [address] Evangelist Chicas WBC 6.4 103/ul Normal 4.0-11.0 [facility] Comment on above: Performed By: #### C BC #### [facility] [address] [place] [address] Dr. Evangelist Chicas PROF CHEM 8 (BAS METB)on Anion gap [Moles/Vol] 7.5 mmol/L Normal [facility] Comment on above: Performed By: #### B MP #### [facility] [address] [place] [address] Dr. Evangelist Chicas Calcium [Mass/Vol] 8.9 mg/dL Normal 8.5-10.1 [facility] Comment on above: Performed By: #### B MP #### [facility] [address] [place] [address] Dr. Evangelist Chicas Chloride [Moles/Vol] 100 mmol/L Normal 98-107 [facility] Comment on above: Performed By: #### B MP #### [facility] [address] [place] [address] Dr. Evangelist Chicas CO2 [Moles/Vol] 33.9 mmol/L Critically high 21.0-32.0 [facility] Comment on above: Performed By: #### B MP #### [facility] [address] [place] [address] Dr. Evangelist Chicas Creatinine [Mass/Vol] 0.65 mg/dL Normal 0.55-1.02 [facility] Comment on above: Performed By: #### B MP #### [facility] [address] [place] [address] Dr. Evangelist Chicas EGFR-AF SENEGALESE >60 Normal >=60 [facility] Comment on above: Performed By: #### B MP #### [facility] [address] [place] [address] Dr. Evangelist Chicas EGFR-NON AF SENEGALESE >60 Normal >=60 [facility] Comment on above: Performed By: #### B MP #### [facility] [address] [address] [address] Evangelist Chicas Glucose [Mass/Vol] 152 mg/dL Critically high 74-106 [facility] Comment on above: Performed By: #### B MP #### [facility] [address] [place] [address] Dr. Evangelist Chicas Potassium [Moles/Vol] 4.4 mmol/L Normal 3.5-5.1 [facility] Comment on above: Performed By: #### B MP #### [facility] [address] [place] [address] Dr. Evangelist Chicas Sodium [Moles/Vol] 137 mmol/L Normal 136-145 [facility] Comment on above: Performed By: #### B MP #### [facility] [address] [place] [address] Dr. Evangelist Chicas Urea nitrogen [Mass/Vol] 16.0 mg/dL Normal 7.0-18.0 [facility] Comment on above: Performed By: #### B MP #### [facility] [address] [place] [address] Dr. Evangelist Chicas Urea nitrogen/Creatinin e [Mass ratio] 24.6 mg/mg Normal [facility] Comment on above: Performed By: #### B MP #### [facility] [address] [place] [address] Dr. Evangelist Chicas BNPon 11-10-2022 Natriuretic peptide B (Bld) [Mass/Vol] 330.0 pg/mL Normal <=900.0 [facility] Comment on above: Performed By: #### B MP #### [facility] [address] [address] [address] Evangelist Chicas CARDIAC LIS ADMITon 023 CK [Catalytic activity/Vol] 40 U/L Normal 26-192 [facility] Comment on above: Performed By: #### D DIM #### [facility] [address] [place] [address] Dr. Evangelist Chicas CK.MB [Mass/Vol] 1.06 ng/mL Normal <=3.[address] [facility] Comment on above: Performed By: #### D DIM #### [facility] [address] [place] [address] Dr. Evangelist Chicas HSTROP 21.6 pg/mL Normal 4.0-51.3 [facility] Comment on above: Result Comment: CUT- OFF POINTS HAVE BEEN ESTABLISHED BASED ON THE FOURTH UNIVERSAL DEFINITIONS OF MYOCARDIAL INFARCTION. THE UPPER REFERENCE LIMIT (URL) OF TROPONIN, DEFINED THE 99TH PERCENTILE OF cTnI DISTRIBUTION IN A REFERENCE POPULATION, HAS BEEN CONFIRMED THE DECISION THRESHOLD FOR PA DIAGNOSIS. Performed By: #### D DIM #### [facility] [address] [place] [address] Dr. Evangelist Chicas VANNA 41 ng/mL Normal 9-82 [facility] Comment on above: Performed By: #### D DIM #### [facility] [address] [place] [address] Dr. Evangelist Chicas CBC AUTO DIFFon 11-10-2022 BASO # 0.1 103/ul Normal 0.0-0.1 [facility] Comment on above: Performed By: #### B MP #### [facility] [address] [place] [address] Dr. Evangelist Chicas Basophils/100 WBC (Bld) 0.7 % Normal 0.2-2.0 [facility] Comment on above: Performed By: #### B MP #### [facility] [address] [place] [address] Dr. Evangelist Chicas EO # 0.1 103/ul Normal 0.0-0.7 [facility] Comment on above: Performed By: #### B MP #### [facility] [address] [place] [address] Dr. Evangelist Chicas Eosinophils/100 WBC (Bld) 1.1 % Normal 0.9-7.0 [facility] Comment on above: Performed By: #### B MP #### [facility] [address] [place] [address] Dr. Evangelist Chicas Erythrocyte distribution width (RBC) [Ratio] 12.8 % Normal 11.0-15.0 [facility] Comment on above: Performed By: #### B MP #### [facility] [address] [place] [address] Dr. Evangelist Chicas Hematocrit (Bld) [Volume fraction] 41.1 % Normal 36.0-48.0 [facility] Comment on above: Performed By: #### B MP #### [facility] [address] [place] [address] Dr. Evangelist Chicas Hemoglobin (Bld) [Mass/Vol] 13.2 g/dL Normal 12.0-16.0 [facility] Comment on above: Performed By: #### B MP #### [facility] [address] [place] [address] Dr. Evangelist Chicas IG # 0.02 10e3/ul Normal 0.00-0.03 [facility] Comment on above: Performed By: #### B MP #### [facility] [address] [place] [address] Dr. Evangelist Chicas IG % 0.3 % Normal 0.0-0.5 [facility] Comment on above: Performed By: #### B MP #### [facility] [address] [place] [address] Dr. Evangelist Chicas LYMPH # 0.7 103/ul Critically low 1.2-3.8 [facility] Comment on above: Performed By: #### B MP #### [facility] [address] [place] [address] Dr. Evangelist Chicas Lymphocytes/100 WBC (Bld) 9.5 % Critically low 20.5-60.0 [facility] Comment on above: Performed By: #### B MP #### [facility] [address] [place] [address] Dr. Evangelist Chicas MANUAL DIFF REQ NO Normal [facility] Comment on above: Performed By: #### B MP #### [facility] [address] [place] [address] Dr. Evangelist Chicas MCH (RBC) [Entitic mass] 29.6 pg Normal 26.7-34.0 [facility] Comment on above: Performed By: #### B MP #### [facility] [address] [place] [address] Dr. Evangelist Chicas MCHC (RBC) [Mass/Vol] 32.1 g/dL Normal 29.9-35.2 [facility] Comment on above: Performed By: #### B MP #### [facility] [address] [place] [address] Dr. Evangelist Chicas MCV (RBC) [Entitic vol] 92.2 fL Normal 81.0-99.0 [facility] Comment on above: Performed By: #### B MP #### [facility] [address] [place] [address] Dr. Evangelist Chicas MONO # 0.6 103/ul Normal 0.3-0.8 [facility] Comment on above: Performed By: #### B MP #### [facility] [address] [place] [address] Dr. Evangelist Chicas Monocytes/100 WBC (Bld) 8.1 % Normal 1.7-12.0 [facility] Comment on above: Performed By: #### B MP #### [facility] [address] [place] [address] Dr. Evangelist Chicas NEUT # 6.1 103/ul Normal 1.4-6.5 [facility] Comment on above: Performed By: #### B MP #### [facility] [address] [place] [address] Dr. Evangelist Chicas Neutrophils/100 WBC (Bld) 80.3 % Critically high 43.0-75.0 [facility] Comment on above: Performed By: #### B MP #### [facility] [address] [place] [address] Dr. Evangelist Chicas Platelet mean volume (Bld) [Entitic vol] 9.8 fL Normal 9.5-13.5 [facility] Comment on above: Performed By: #### B MP #### [facility] [address], [place] [address] Dr. Evangelist Chicas PLT 180 103/ul Normal 150-450 [facility] Comment on above: Performed By: #### B MP #### [facility] [address] [address] [address] Evangelist Chicas RBC 4.46 106/ul Normal 4.20-5.40 [facility] Comment on above: Performed By: #### B MP #### [facility] [address] [address] [address] Evangelist Chicas WBC 7.6 103/ul Normal 4.0-11.0 [facility] Comment on above: Performed By: #### B MP #### [facility] [id number] Evangelist Chicas CTA CHEST WO W CONon 023 CTA CHEST WO W CON EXAMINATION:CTA CHES T WO W CON INDICATION:SHORTNESS OF BREATH, worsening cough COMPARISON:None TECHNIQUE:Thin section transaxial slices were acquired through the chest with intravenous contrast per PE protocol. Coronal and sagittal reconstructed images were reviewed. FINDINGS: PULMONARY ARTERIES: There is good opacification of the pulmonary vasculature. No suspicious pulmonary arterial filling defects are identified to suggest pulmonary embolus. LUNGS: There are conglomerations of centrilobular airspace densities in the right lower lobe along with tiny groundglass nodular densities in the right lower lobe. Imaging features are concerning for an infectious or inflammatory process. Atelectatic changes are present elsewhere in the lung bases and the lingula. PLEURAL CAVITY: No pleural effusion. MEDIASTINUM: Trachea and central airways are patent. HEART: The heart is unremarkable.There is no evidence of right heart strain. VASCULAR:There is no aneurysm or dissection of the thoracic aorta. LYMPH NODES:No suspicious lymphadenopathy. CHEST WALL/AXILLA: Chest wall and axilla are unremarkable. BONES: Mild endplate degenerative changes are present in the mid thoracic spine. VISUALIZED UPPER ABDOMEN: Upper abdominal structures are unremarkable. IMPRESSION: 1. No evidence of pulmonary embolus. 2. Centrilobular/groundgl ass nodular airspace disease in right lower lobe concerning for an infectious or inflammatory process. Electronically authenticated by: DEL ENRIQUE Date: 2022-11-10 17:30 Normal [facility]on SARS-CoV-2 (COVID-19) RNA SHENG+probe Ql (Unsp spec) Not detected Normal NOT DETECTED [facility] Comment on above: Result Comment: When diagnostic testing is negative, the possibility of a false negative should be considered in the context of a patient's recent exposures and the presence of clinical signs and symptoms consistent with SARS-CoV-2. This test is not yet approved or cleared by the [place] FDA. When there are no FDA-approved or cleared tests available, and other criteria are met, FDA can make tests available under an emergency access mechanism called an Emergency Use Authorization (EUA). The EUA for this test is supported by the [place] of Health and Human Service's declaration that circumstances exist to justify the emergency use of in vitro diagnostics for the detection and/or diagnosis of the virus that causes COVID-19. This EUA will remain in effect for the duration of the COVID-19 declaration justifying emergency of IVDs, unless it is terminated or revoked by the FDA (after which the test may no longer be used). Performed By: #### B MP #### [facility] [address] [place] [address] Dr. Evangelist Chicas D-DIMERon 11-10-2022 D-DIMER 0.63 mg/L FEU Critically high <=0.59 [facility] Comment on above: Performed By: #### D DIM #### [facility] [address] [place] [address] [id number] [address] Evangelist Chicas D-DIMER COMMENTS SEE BELOW Normal [facility] Comment on above: Result Comment: Incr eases in D-Dimer concentration observed with thromboembolic events can be variable due to localization, size, and age of the thrombus. Therefore, a thromboembolic event cannot be diagnosed with certainty on the basis of the reference range. D-Dimers may also be elevated for a variety of disorders including: advanced age, , coronary disease, cancer, liver disease, infection, inflammation, hematoma, DIC, trauma, post-surgery, diabetes, thrombolytic or anticoagulant therapy, stress, and generalized hospitalization. Performed By: #### D DIM #### [facility] [address] [address] [address] Evangelist Chicas ER URINE PROFILEon 3 Bilirubin Ql (U) Negative Normal NEGATIVE [facility] Comment on above: Performed By: #### U MICRO, ERUR #### [facility] [address] [place] [address] Dr. Evangelist Chicas Clarity (U) CLEAR Normal CLEAR [facility] Comment on above: Performed By: #### U MICRO, ERUR #### [facility] [address] [place] [address] Dr. Evangelist Chicas Color (U) LT. YELLOW Normal YELLOW [facility] Comment on above: Performed By: #### U MICRO, ERUR #### [facility] [address] [place] [address] Dr. Evangelist Chicas ERUAHD A micrscopic examination will be performed if indicated. Normal [facility] Comment on above: Performed By: #### U MICRO, ERUR #### [facility] [address] [place] [address] Dr. Evangelist Chicas Glucose Ql (U) Negative Normal NEGATIVE [facility] Comment on above: Performed By: #### U MICRO, ERUR #### [facility] [address] [place] [address] Dr. Evangelist Chicas Hemoglobin Ql (U) TRACE-INTACT Abnormal NEGATIVE [facility] Comment on above: Performed By: #### U MICRO, ERUR #### [facility] [address] [place] [address] Dr. Evangelist Chicas Ketones Ql (U) Negative Normal NEGATIVE [facility] Comment on above: Performed By: #### U MICRO, ERUR #### [facility] [address] [place] [address] Dr. Evangelist Chicas LEUKOCYTES Negative Normal NEGATIVE [facility] Comment on above: Performed By: #### U MICRO, ERUR #### [facility] [address] [place] [address] Dr. Evangelist Chicas Nitrite Ql (U) Negative Normal NEGATIVE [facility] Comment on above: Performed By: #### U MICRO, ERUR #### [facility] [address] [place] [address] Dr. Evangelist Chicas pH (U) 6.0 [pH] Normal 5-9 [facility] Comment on above: Performed By: #### U MICRO, ERUR #### [facility] [address] [place] [address] Dr. Evangelist Chicas SPEC GRAVITY 1.010 Normal 1.005-<=1.025 [facility] Comment on above: Performed By: #### U MICRO, ERUR #### [facility] [address] [place] [address] Dr. Evangelist Chicas UA PROTEIN Negative Normal NEGATIVE/ TRACE [facility] Comment on above: Performed By: #### U MICRO, ERUR #### [facility] [address] [place] [address] Dr. Evangelist Chicas UR MICRO IND INDICATED Normal [facility] Comment on above: Performed By: #### U MICRO, ERUR #### [facility] [address] [place] [address] Dr. Evangelist Chicas Urobilinogen Qn (U) 0.2 {Amalia'U}/dL Normal 0.2 - 1.0 [facility] Comment on above: Performed By: #### U MICRO, ERUR #### [facility] [address] [place] [address] Dr. Evangelist Chicas INFLUENZA A AND B AGon 11-10 INFLUANEGH SEE BELOW Normal [facility] Comment on above: Result Comment: Nega tive for Flu A protein angiten. Infection due to Flu A cannot be ruled out. Flu A angiten in the sample may be below the detection limit of the test. Performed By: #### D DIM #### [facility] [address] [place] [address] Dr. Evangelist Chicas INFLUBNEGH SEE BELOW Normal [facility] Comment on above: Result Comment: Nega tive for Flu B protein antigen. Infection due to Flu B cannot be ruled out. Flu B antigen in the sample may be below the detection limit of the test. Performed By: #### D DIM #### [facility] [address] [place] [address] Dr. Evangelist Chicas INFLUENZA A AG Negative Normal NEGATIVE SEE COMMENT [facility] Comment on above: Performed By: #### D DIM #### [facility] [address] [place] [address] Dr. Evangelist Chicas INFLUENZA B AG Negative Normal NEGATIVE SEE COMMENT [facility] Comment on above: Performed By: #### D DIM #### [facility] [address] [place] [address] Dr. Evangelist Chicas PROF 14(COMP METB)on 023 Albumin [Mass/Vol] 3.1 g/dL Critically low 3.4-5.0 [facility] e [facility] Comment on above: Performed By: #### B MP #### [facility] [address] [place] [address] Dr. Evangelist Chicas Albumin/Globulin [Mass ratio] 0.7 {ratio} Normal [facility] Comment on above: Performed By: #### B MP #### [facility] [address] [place] [address] Dr. Evangelist Chicas ALP [Catalytic activity/Vol] 108 U/L Normal 46-116 [facility] Comment on above: Performed By: #### B MP #### [facility] [address] [place] [address] Dr. Evangelist Chicas ALT [Catalytic activity/Vol] 20 U/L Normal 14-59 [facility] Comment on above: Performed By: #### B MP #### [facility] [address] [place] [address] Dr. Evangelist Chicas Anion gap [Moles/Vol] 6.0 mmol/L Normal [facility] Comment on above: Performed By: #### B MP #### [facility] [address] [place] [address] Dr. Evangelist Chcias AST [Catalytic activity/Vol] 16 U/L Normal 15-37 [facility] Comment on above: Performed By: #### B MP #### [facility] [address] [address] [address] Evangelist Chicas Bilirubin [Mass/Vol] 0.6 mg/dL Normal 0.2-1.0 [facility] Comment on above: Performed By: #### B MP #### [facility] [address] [address] [address] Evangelist Chicas Calcium [Mass/Vol] 9.1 mg/dL Normal 8.5-10.1 [facility] Comment on above: Performed By: #### B MP #### [facility] [address] [address] [address] Evangelist Chicas Chloride [Moles/Vol] 97 mmol/L Critically low 98-107 [facility] Comment on above: Performed By: #### B MP #### [facility] [address] [place] [address] Dr. Evangelist Chicas CO2 [Moles/Vol] 36.9 mmol/L Critically high 21.0-32.0 [facility] Comment on above: Performed By: #### B MP #### [facility] [address] [address] [address] Evangelist Chicas Creatinine [Mass/Vol] 0.71 mg/dL Normal 0.55-1.02 [facility] Comment on above: Performed By: #### B MP #### [facility] [address] [address] [address] Evangelist Chicas EGFR-AF SENEGALESE >60 Normal >=[address] [facility] Comment on above: Performed By: #### B MP #### [facility] [address] [address] [address] Evangelist Chicas EGFR-NON AF SENEGALESE >60 Normal >=60 [facility] Comment on above: Performed By: #### B MP #### [facility] [address] [place] [address] Dr. Evangelist Chicas Globulin (S) [Mass/Vol] 4.4 g/dL Normal [facility] Comment on above: Performed By: #### B MP #### [facility] [address] [address] [address] Evangelist Chicas Glucose [Mass/Vol] 124 mg/dL Critically high 74-106 [facility] Comment on above: Performed By: #### B MP #### [facility] [address] [address] [address] Evangelist Chicas Potassium [Moles/Vol] 3.9 mmol/L Normal 3.5-5.1 [facility] Comment on above: Performed By: #### B MP #### [facility] [address] [address] [address] Evangelist Chicas Protein [Mass/Vol] 7.5 g/dL Normal 6.4-8.2 [facility] Comment on above: Performed By: #### B MP #### [facility] [address] [place] [address] Dr. Evangelist Chicas Sodium [Moles/Vol] 136 mmol/L Normal 136-145 [facility] Comment on above: Performed By: #### B MP #### [facility] [address] [place] [address] Dr. Evangelist Chicas Urea nitrogen [Mass/Vol] 17.0 mg/dL Normal 7.0-18.0 [facility] Comment on above: Performed By: #### B MP #### [facility] [address] [place] [address] Dr. Evangelist Chicas Urea nitrogen/Creatinin e [Mass ratio] 23.9 mg/mg Normal [facility] Comment on above: Performed By: #### B MP #### [facility] [address] [place] [address] Dr. Evangelist Chicas URINE MICROSCOPIC ONLYon BACTERIA NONE SEEN Normal NONE SEEN [facility] Comment on above: Performed By: #### U MICRO, ERUR #### [facility] [address] [place] [address] Dr. Evangelist Chicas Bacteria identified Cx Nom (U) NOT INDICATED Normal [facility] Comment on above: Performed By: #### U MICRO, ERUR #### [facility] [address] [place] [address] Dr. Evangelist Chicas CAST NONE SEEN Normal NONE SEEN [facility] Comment on above: Performed By: #### U MICRO, ERUR #### [facility] [address] [address] [address] Evangelist Chicas Crystals LM Nom (Urine sed) NONE SEEN Normal NONE SEEN [facility] Comment on above: Performed By: #### U MICRO, ERUR #### [facility] [address] [place] [address] Dr. Evangelist Chicas Epithelial cells LM Ql (Urine sed) FEW Abnormal NONE SEEN /RARE [facility] Comment on above: Performed By: #### U MICRO, ERUR #### [facility] [address] [place] [address] Dr. Evangelist Chicas MUCOUS NONE SEEN Normal NONE SEEN [facility] Comment on above: Performed By: #### U MICRO, ERUR #### [facility] [address] [place] [address] Dr. Evangelist Chicas RBC 0-2 Normal 0-2 [facility] Comment on above: Performed By: #### U MICRO, ERUR #### [facility] [address] [place] [address] Dr. Evangelist Chicas WBC NONE SEEN Normal NONE SEEN [facility] Comment on above: Performed By: #### U MICRO, ERUR #### [facility] [address] [place] [address] Dr. Evangelist Chicas XR CHEST 1 Von 11-10-2022 XR CHEST 1 V EXAMINATION: XR CHES T 1 V HISTORY: SHORTNESS OF BREATH , productive cough COMPARISON: No relevant comparison available. FINDINGS: LUNGS: Increased opacity over lung base is felt to be secondary to anterior soft tissue artifact. No significant pulmonary parenchymal abnormalities. VASCULATURE: No increased pulmonary vasculature. PLEURA: No pneumothorax, effusion, or pleural thickening. CARDIAC: No cardiomegaly or cardiac silhouette abnormality. MEDIASTINUM: No visible mass or adenopathy. BONES: No fracture or visible bone lesion. OTHER: Negative. IMPRESSION: 1. No acute cardiopulmonary process. Electronically authenticated by: JH JAIN Date: 2022-11-10 15:24 Normal [facility] Encounters Encounter Date Encounter Type Care Provider Facility Start: 10-31-2023 End: 12-22-2023 ambulatory JOLANTA LEE Not Available Start: 08-25-2023 End: 08-26-2023 ambulatory Corine Frye MD Facility: [facility] Start: 01-29-2023 End: 01-30-2023 ambulatory JOLANTA LEE Facility:[facility] Start: 11-10-2022 End: 11-14-2022 Evaluation and management of inpatient DR JOLANTA LEE Facility:[facility] Payers Date Payer Category Payer Unknown 1965 Unknown [id number] 1965 Unknown [id number] 1965 Unknown [id number] 1965 Unknown [id number] 1959 Unknown [id number] Summary Purpose Family History No Family History Records FoundNo Family History Records FoundNo Family History Records Found Advance Directives No Advanced Directives Records FoundNo Advanced Directives Records FoundNo Advanced Directives Records Found Additional Source Comments INFORMATION SOURCE (unrecogn ized section and content) DATE CREATED AUTHOR 02/02/2023 [facility] DATE CREATED AUTHOR AUTHOR'S ORGANIZ ATION 08/30/2023 [facility] DATE CREATED AUTHOR AUTHOR'S ORGANIZ ATION 11/01/2023 [facility] FOR RECORDS PERTAINING TO PATIENTS WHO ARE OR HAVE BEEN ENROLLED IN A CHEMICAL DEPENDENCY/SUBSTANCEABUSE PROGRAM, SOME INFORMATION MAY BE OMITTED. This clinical summary was aggregated from multiple sources. Caution should be exercised in using it in the provision of clinical care. This summary normalizes information from multiple sources, and as a consequence, information in this document may materially change the coding, format and clinical context of patient data. In addition, data may be omitted in some cases. CLINICAL DECISIONS SHOULD BE BASED ON THE PRIMARY CLINICAL RECORDS. [facility] [employer] [facility]. provides no warranty or guarantee of the accuracy or completeness of information in this document.
--- NOTE | 2023-11-06 09:38 | P.CN_ITS ---
Consult Note: HPI Data of Consult Patient: known to practice within the last 3 years Requesting Physician: Rachael Robles NP Primary Care Provider: Mane Kearney MD Consult Narrative Reason for consult: f/u Narrative: Jazz Juares a pleasant 58 year old female presents for evaluation and management of chronic low back pain with NC. Today pain 8/10 with tingling and weakness to bilateral legs. Patient underwent MRI since last visit which revealed mild central canal stenosis and broad based disc protrusion at L4-5. Patient is pending evaluation by Dr Fidencio VALERIO. cc:: CC: Rachael Robles NP Review of Systems ROS Status of ROS 10 or more systems reviewed and unremark able except as noted in history and below Musculoskeletal Reports: back pain and muscle weakness Meds Home Medications and Allergies Home Medications Medication Instructions Recorded Confirmed Type gabapentin 300 mg capsule 300 mg PO TID #90 caps 08/25/23 Rx amlodipine 5 mg tablet 5 mg PO DAILY 08/28/23 08/28/23 History celecoxib 200 mg capsule 200 mg PO Q12H PRN pain 08/28/23 08/28/23 History cholecalciferol (vitamin D3) 50 50 mcg PO DAILY 08/28/23 08/28/23 History mcg (2,000 unit) tablet losartan 100 1 tab PO DAILY 08/28/23 08/28/23 History mg-hydrochlorothiazide 25 mg tablet methocarbamol 750 mg tablet 750 mg PO Q6H PRN spasms 08/28/23 08/28/23 History umeclidinium 62.5 mcg-vilanterol 1 inh inhalation Q24H 08/28/23 08/28/23 History 25 mcg/actuation powdr for inhalation (Anoro Ellipta) duloxetine 60 mg capsule,delayed 60 mg PO DAILY #30 caps 10/09/23 Rx release Allergies Allergy/AdvReac Type Severity Reaction Status Date / Time ciprofloxacin [From Cipro] Allergy Verified 08/28/23 10:13 Exam Constitutional Documenting provider has reviewed patient's vital signs: yes Common normals: no apparent distress, oriented x3, healthy appearing, alert and well nourished General appearance: cooperative HENMT Common normals: normocephalic, hearing grossly normal bilaterally and moist oral mucous membranes Head and scalp: normocephalic Eye Common normals: PERRL Pupil: PERRL Neck & C-Spine Common normals: full ROM General: normal visual inspection Chest Common normals: inspection of chest normal Respiratory Common normals: normal respiratory effort, no retractions and no use of accessory muscles Back & Pelvis Other: Lumbar-tenderness to palpation noted in the lumbar spine and paraspinal musculature. Pain is elicited with flexion, extension, and lateral rotation of the lumbar spine. Range of motion is diminished with these motions. Facet loading maneuvers are positive..? Strength-noted to be unremarkable with the exception of decreased strength rated at 4 out of 5 in bilateral quadriceps femoris, anterior tibialis. Sensory-no notable sensory deficits in the bilateral lower extremities to touch or pinprick in all dermatomal distributions with the exception to decreased sensation to the bilateral L4, 5 dermatomal distribution Extremity Common normals: normal to inspection and full ROM Neuro Common normals: oriented x3, CN's II-XII intact bilaterally, moves all extremities, no focal motor deficits, no sensory deficits noted and deep tendon reflexes 2+ bilaterally Sensorium/orientation: alert Gait (neuro): antalgic Motor exam: strength 5/5 throughout and no movement abnormalities noted Psych Common normals: mental status grossly normal, thought process normal, cooperative, affect normal, speech normal and activity/motor behavior normal Speech: normal speech Thought process: normal thought process Results Additional Findings Additional findings: I have checked an [facility] report on this patient today and there are no aberrancies noted in the prescribing history.?? A drug screen was completed and reviewed within the last year, and if there has not been a drug screen completed we ordered one today to monitor higher risk, state monitored pain medication use. As part of providing excellent, safe, comprehensive care, the following was completed at our patient's visit: 1. A medication reconciliation and review to ensure accurate knowledge of current/active medications, including asking our patients to inform us about any [id number] medications or herbal remedies/nutritional supplements/alternative remedies. 2. A review to specifically ensure our patients have had annual screening for: elevated body mass index (BMI), tobacco use, screening for depression, and screening for unhealthy alcohol use. When screening is concerning, patients are provided with education and the specific recommendation to discuss the concerning health issue and treatment options with their primary care provider. Assessment and Plan Assessment and Plan (1) Lumbar stenosis with neurogenic claudication: (2) Lumbar spondylosis: (3) Myofascial pain: (4) Obesity: Assessment and Plan: The patient was counseled that proper dietary changes and consistent participation in a home exercise plan can lead to weight loss. Weight loss can help to improve functionality in patients with chronic pain.? Plan ns referral to fidencio from PCP, pending evaluation consider bilateral L4-5 TFESI, if patient does not receive greater than 50% relief for 3 months consider vertiflex at L4-5. BMI >46 at this time, would require updated bone density scan. continue duloxetine 60mg, patient going to start taking in AM. If no benefit increase to 90mg daily f/u after NS evaluation
== END 2023-11-06 09:08 | disposition home or self-care (01) ==
LOC: PM 09:08
PROVIDERS: PCP Family Medicine; Visit Provider Nurse Practitioner
DX: M48.062 Spinal stenosis, lumbar region with neurogenic claudication (principal); M47.816 Spondylosis without myelopathy or radiculopathy, lumbar region; M79.18 Myalgia, other site; E66.9 Obesity, unspecified; Z68.41 Body mass index [BMI] 40.0-44.9, adult
CPT/HCPCS: G0463

== ENCOUNTER 2023-12-25 08:05 | Outpatient (OUT) | payer BC, SELFPAY ==
--- OUTSIDE RECORDS SUMMARY | 2023-12-25 08:08 | XMS_ITS | CCD ---
Author Name Unknown Address [id number] [place] [address] Organization [facility] Care Team Providers Care Gold Miner Name Role Phone JESUS, DR MANE Avina Primary Care Unavailable EDDIE ., DR VAMSHI Correa Consulting Unavailable JESUS, DR MANE Avina Admitting Unavailable JESUS, DR MANE Avina Attending Unavailable SUSY, DR JH Hunter Consulting Unavailable JESUS, DR MANE Avina Consulting Unavailable HI ., MR BUCKLEY Consulting Unavailable STRAWSER, DEL Consulting Unavailable CHOU, MALCOLM Consulting Unavailable JESUS, DR MANE Avina Admitting Unavailable JESUS, DR MANE Avina Attending Unavailable JESUS, DR MAEN Avina Primary Care Unavailable [employer], DR INA Uriostegui Consulting Unavailable JESUS, DR MANE Avina Consulting Unavailable Melva BACK, Corine Puentes Attending Unavailable MD Mane Lee Primary Care Provider [phone] BERNICE Shipman Attending Provider Lakisha Shipman Attending Unavailable Lakisha Shipman Admitting Unavailable Mane Lee Primary Care Unavailable Mane Lee MD Primary Care Provider MANE LEE Attending Unavailable MANE LEE Attending Unavailable JESUS, MANE Attending Unavailable Allergies Allergy Classification Reported Allergen(s) Allergy Type Date of Onset Reaction(s) Facility (1 source) Ciprofloxacin Drug Allergy 10-19-2014 [facility] Repository (1 source) Ciprofloxacin Drug Allergy 12-10-2023 [facility] Repository (3 sources) Ciprofloxacin Drug Allergy 10-31-2023 [facility] Medications Current Medications Medication Drug Class(es) Dates Sig (Normalized) Sig (Original) [id number] 200 actuat albuterol 0.09 mg/actuat metered dose inhaler (6 sources) beta2-Adrenergic Agonist Start: 10-28-2023 albuterol (2.5 MG/3ML) 0.083% nebulizer solution Indications: Moderate COPD (chronic obstructive pulmonary disease) (CMS/HCC) Take 3 mL (2.5 mg) by nebulization every 6 (six) hours if needed for shortness of breath 75 mL 0 10/28/2023 Active Start: 10-28-2023 End: 11-08-2024 take 2 puff(s) by inhalation every six hours albuterol HFA 90 mcg/act inhaler Indications: Moderate COPD (chronic obstructive pulmonary disease) (CMS/HCC) Inhale 2 puffs every 6 (six) hours if needed for shortness of breath 18 g 3 10/28/2023 11/08/2024 Active amLODIPine 5 mg oral tablet (3 sources) Dihydropyridine Calcium Channel Cintia Start: 10-28-2023 End: 11-08-2024 take 1 tablet by mouth in the morning amLODIPine (Norvasc) 5 MG tablet Indications: Essential hypertension, benign ([facility]/HCC) Take 1 tablet (5 mg) by mouth in the morning. 90 tablet 3 10/28/2023 11/08/2024 Active celecoxib 200 mg oral capsule (3 sources) Nonsteroidal Anti-inflammatory Drug Start: 10-28-2023 End: 11-08-2024 take 1 capsule by mouth in the morning celecoxib (CeleBREX) 200 MG capsule Indications: Spinal stenosis, lumbar region, without neurogenic claudication Take 1 capsule (200 mg) by mouth in the morning and 1 capsule (200 mg) before bedtime. 180 capsule 3 10/28/2023 11/08/2024 Active cholecalciferol 0.05 mg oral tablet (3 sources) Vitamin D Start: 10-28-2023 End: 11-02-2024 take 1 tablet by mouth once in the morning cholecalciferol (Vitamin D-3) 50 MCG (2000 UT) tablet Indications: Vitamin D deficiency Take 1 tablet (50 mcg) by mouth in the morning. 90 tablet 3 10/28/2023 11/02/2024 Active cyclobenzaprine hydrochloride 10 mg oral tablet (3 sources) Muscle Relaxant Start: 09-15-2023 take 1 tablet by mouth three times daily as needed for muscle spasms cyclobenzaprine (Flexeril) 10 MG tablet Take 10 mg by mouth 3 (three) times a day as needed for muscle spasms 0 09/15/2023 Active DULoxetine 60 mg delayed release oral capsule (3 sources) Serotonin and Norepinephrine Reuptake Inhibitor Start: 10-28-2023 End: 10-27-2024 take 1 capsule by mouth in the morning DULoxetine (Cymbalta) [address] capsule Indications: Degeneration of lumbar intervertebral disc Take 1 capsule (60 mg) by mouth in the morning. 90 capsule 3 10/28/2023 10/27/2024 Active furosemide 40 mg oral tablet (3 sources) Loop Diuretic Start: 10-28-2023 End: 10-27-2024 take 1 tablet by mouth in the morning furosemide (Lasix) 40 MG tablet Indications: Lower extremity edema Take 1 tablet (40 mg) by mouth in the morning. 90 tablet 3 10/28/2023 10/27/2024 Active hydroCHLOROthiazide 25 mg / losartan potassium 100 mg oral tablet (3 sources) Thiazide Diuretic, Angiotensin 2 Receptor Cintia Start: 10-28-2023 End: 10-27-2024 take 1 tablet by mouth in the morning losartan-hydroCHLO ROthiazide (Hyzaar) 100-25 MG tablet Indications: Essential hypertension, benign (CMS/HCC) Take 1 tablet by mouth in the morning. 90 tablet 3 10/28/2023 10/27/2024 Active phentermine hydrochloride 37.5 mg oral tablet (3 sources) Sympathomimetic Amine Anorectic Start: 11-26-2023 End: 12-26-2023 take 1 tablet by mouth in the morning phentermine (Adipex-P) 37.5 MG tablet Indications: Morbid obesity (CMS/HCC) Take 1 tablet (37.5 mg) by mouth in the morning. 30 tablet 0 11/26/2023 12/26/2023 Active potassium chloride 20 meq extended release oral tablet (3 sources) Start: 10-28-2023 End: 10-27-2024 take 1 tablet by mouth in the morning potassium chloride CR (K-Tab) 20 MEQ ER tablet Indications: Lower extremity edema Take 1 tablet (20 mEq) by mouth in the morning. 90 tablet 3 10/28/2023 10/27/2024 Active 30 actuat umeclidinium 0.0625 mg/actuat / vilanterol 0.025 mg/actuat dry powder inhaler (3 sources) Anticholinergic, beta2-Adrenergic Agonist Start: 10-28-2023 End: 11-08-2024 take 1 puff(s) by inhalation in the morning Umeclidinium-Vilan terol (Anoro Ellipta) 62.5-25 MCG/ACT aerosol powder Indications: Moderate COPD (chronic obstructive pulmonary disease) (CMS/HCC) Inhale 1 puff in the morning. 1 each 6 10/28/2023 11/08/2024 Active Problems Problem Classification Problem Date Documented Da te Episodic/Chronic Chronic obstructive pulmonary disease and bronchiectasis (11 sources) Chronic obstructive pulmonary disease, unspecified; 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: [Chronic obstructive pulmonary disease with (acute) lower respiratory infection] Onset: 11-20-2022 Chronic Essential hypertension (6 sources) Essential (primary) hypertension; 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: [Benign essential hypertension] Onset: 11-20-2022 10-31-2023 Chronic Nutritional deficiencies (3 sources) Vitamin D deficiency; 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: [Vitamin D deficiency, unspecified] Onset: 10-31-2023 10-31-2023 Chronic Other aftercare (1 source) Other shelter (current) drug therapy; 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: [OTH SKILLED NURSING CURRENT DRUG THERAPY] Onset: 11-20-2022 Episodic Other aftercare (1 source) longterm (current) use of opiate analgesic; 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: [HOSPICE NURSE CURRNT USE OPIATE ANALGES] Onset: 11-20-2022 Episodic Other and unspecified benign neoplasm (3 sources) History of polyp of colon; 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: [Personal history of colonic polyps] Onset: 10-31-2023 10-31-2023 Episodic Other bone disease and musculoskeletal deformities (3 sources) Osteopenia; 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: [Other specified disorders of bone density and structure, right thigh] Onset: 10-31-2023 10-31-2023 Episodic Other lower respiratory disease (2 sources) Shortness of breath; 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: [SHORTNESS OF BREATH] Onset: 11-10-2022 Episodic Other nutritional; endocrine; and metabolic disorders (3 sources) Morbid obesity; 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: [Morbid (severe) obesity due to excess calories] Onset: 10-31-2023 10-31-2023 Chronic Other screening for suspected conditions (not mental disorders or infectious disease) (1 source) Encounter for screening mammogram for malignant neoplasm of breast; 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: [ENC SCR MAMMO MALIG NEOPLASM BREAST] Onset: 02-01-2023 Episodic Pneumonia (except that caused by tuberculosis or sexually transmitted disease) (1 source) Pneumonia, unspecified organism; 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: [PNEUMONIA UNSPECIFIED ORGANISM] Onset: 11-20-2022 Episodic Residual codes; unclassified (3 sources) Obstructive sleep apnea syndrome; 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: [Obstructive sleep apnea (adult) (pediatric)] Onset: 10-31-2023 10-31-2023 Chronic Residual codes; unclassified (1 source) Family history [...] unspecified; 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: [EDEMA UNSPECIFIED] Onset: 11-20-2022 Episodic Residual codes; unclassified (5 sources) Edema of lower extremity; 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: [Localized edema] Onset: 10-31-2023 10-31-2023 Episodic Respiratory failure; insufficiency; arrest (adult) (1 source) Acute respiratory failure with hypoxia; 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: [ACUTE RESPIRATORY FAIL W/HYPOXIA] Onset: 11-20-2022 Episodic Spondylosis; intervertebral disc disorders; other back problems (10 sources) Degenerative lumbar spinal stenosis; 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: [Spinal stenosis, lumbar region without neurogenic claudication] Onset: 10-31-2023 10-31-2023 Episodic Substance-related disorders (1 source) Nicotine dependence, cigarettes, uncomplicated; 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: [NICOTINE DEPEND CIGARETTES UNCOMP] Onset: 11-20-2022 Chronic Unclassified (1 source) CONTACT W/AND (SUSP) EXPOS COVID-19; 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: [CONTACT W/AND (SUSP) EXPOS COVID-19] Onset: 11-20-2022 Unclassified (1 source) Low back pain, unspecified; 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: [Low back pain, unspecified] Onset: 12-10-2023 Results Test Name Value Interpretation Reference Range Facil ity XR lumbar spine 6V w bending on 12-10-2023 XR lumbar spine 6V w bending [facility] Main [address] [address] XRay Report Signed Patient: Lawrence Juares MR#: [id number] 8 : 1965 Acct:[id number] Age/Sex: 58 / F ADM Date: 12/10/23 Loc: XD Room: Type: [facility] Attending Dr: Lakisha AMBROSIOC Copies to: BERNICE Ceron Ordering Provider: BERNICE Ceron Date of Service: 12/10/23 XR/XR lumbar spine 6V w bending: M54.5 LUMBAR SPINE - 6 views CLINICAL HISTORY: Low back pain radiating down leg numbness and tingling in legs. COMPARISON: Lumbar spine series 08/04/2023 FINDINGS: Vertebral body heights appear maintained. Mild endplate and facet joint degenerative changes without significant disc height loss. No pathological motion is seen on flexion or extension views. Relatively symmetrical sidebending. XR/XR lumbar spine 6V w bending IMPRESSION: DEGENERATIVE CHANGES INVOLVING LUMBAR SPINE WITHOUT SIGNIFICANT DISC HEIGHT LOSS. Impression dictated by: Owen Smith Jr., HeydiOMartell12/10/2023 3:58 PM Dictation Location: [place] [address] Transcribed By: [facility] 12/10/23 1558 Dictated By: Owen Smith Jr, DO 12/10/23 1557 Signed By: 12/10/23 1558 Normal [facility] HEMOGLOBINon 01-29-2023 Hemoglobin (Bld) [Mass/Vol] 14.6 g/dL Normal 12.0-16.0 [facility] Comment on above: Performed By: #### H GB #### [facility] [address] [place] [address] Dr. Evangelist Chicas MG MAMM SCREEN 3D MANJIT CADon 01-29-2023 MG MAMM SCREEN 3D MANJIT CAD Patient: LAWRENCE JUARES Exam Date: 01/29/2023 : 1965 Gender:F Ordering : DR MANE LEE . Admission #: [id number] Family : Order #: [id number] CLICK HERE TO VIEW EXAM RADIOLOGY REPORT [...] rectal cancer at age 73. LOCATION: [facility] BREAST COMPOSITION: Scattered areas fibroglandular density. FINDINGS: [...] MD on 01/29/2023 at 09:29 Normal [facility] CBC AUTO DIFFon 11-14-2022 BASO # 0.0 103/ul Normal 0.0-0.1 [facility] Comment on above: Performed By: #### B MP #### [facility] [address] [place] [address] Dr. Evangelist Chicas Basophils/100 WBC (Bld) 0.1 % Critically low 0.2-2.0 [facility] Comment on above: Performed By: #### B MP #### [facility] [address] [place] [address] Dr. Evangelist Chicas EO # 0.0 103/ul Normal 0.0-0.7 [facility] Comment on above: Performed By: #### B MP #### [facility] [address] [place] [address] Dr. Evangelist Chicas Eosinophils/100 WBC (Bld) 0.1 % Critically low 0.9-7.0 [facility] Comment on above: Performed By: #### B MP #### [facility] [address] [place] [address] Dr. Evangelist Chicas Erythrocyte distribution width (RBC) [Ratio] 13.1 % Normal 11.0-15.0 [facility] Comment on above: Performed By: #### B MP #### [facility] [address] [place] [address] Dr. Evangelist Chicas Hematocrit (Bld) [Volume fraction] 41.4 % Normal 36.0-48.0 [facility] Comment on above: Performed By: #### B MP #### [facility] [address] [place] [address] Dr. Evangelist Chicas Hemoglobin (Bld) [Mass/Vol] 13.0 g/dL Normal 12.0-16.0 [facility] Comment on above: Performed By: #### B MP #### [facility] [address] [place] [address] Dr. Evangelist Chicas IG # 0.03 10e3/ul Normal 0.00-0.03 [facility] Comment on above: Performed By: #### B MP #### [facility] [address] [place] [address] Dr. Evangelist Chicas IG % 0.4 % Normal 0.0-0.5 [facility] Comment on above: Performed By: #### B MP #### [facility] [address] [place] [address] Dr. Evangelist Chicas LYMPH # 0.4 103/ul Critically low 1.2-3.8 [facility] Comment on above: Performed By: #### B MP #### [facility] [address] [place] [address] Dr. Evangelist Chicas Lymphocytes/100 WBC (Bld) 4.7 % Critically low 20.5-60.0 [facility] Comment on above: Performed By: #### B MP #### [facility] [address] [place] [address] Dr. Evangelist Chicas MANUAL DIFF REQ NO Normal [facility] Comment on above: Performed By: #### B MP #### [facility] [address] [place] [address] Dr. Evangelist Chicas MCH (RBC) [Entitic mass] 29.1 pg Normal 26.7-34.0 [facility] Comment on above: Performed By: #### B MP #### [facility] [address] [place] [address] Dr. Evangelist Chicas MCHC (RBC) [Mass/Vol] 31.4 g/dL Normal 29.9-35.2 [facility] Comment on above: Performed By: #### B MP #### [facility] [address] [place] [address] Dr. Evangelist Chicas MCV (RBC) [Entitic vol] 92.8 fL Normal 81.0-99.0 [facility] Comment on above: Performed By: #### B MP #### [facility] [address] [place] [address] Dr. Evangelist Chicas MONO # 0.1 103/ul Critically low 0.3-0.8 [facility] Comment on above: Performed By: #### B MP #### [facility] [address] [place] [address] Dr. Evangelist Chicas Monocytes/100 WBC (Bld) 1.8 % Normal 1.7-12.0 [facility] Comment on above: Performed By: #### B MP #### [facility] [address] [place] [address] Dr. Evangelist Chicas NEUT # 6.8 103/ul Critically high 1.4-6.5 [facility] Comment on above: Performed By: #### B MP #### [facility] [address] [place] [address] Dr. Evangelist Chicas Neutrophils/100 WBC (Bld) 92.9 % Critically high 43.0-75.0 [facility] Comment on above: Performed By: #### B MP #### [facility] [address] [place] [address] Dr. Evangelist Chicas Platelet mean volume (Bld) [Entitic vol] 11.3 fL Normal 9.5-13.5 [facility] Comment on above: Performed By: #### B MP #### [facility] [address] [place] [address] Dr. Evangelist Chicas PLT 109 103/ul Critically low 150-450 [facility] Comment on above: Performed By: #### B MP #### [facility] [address] [place] [address] Dr. Evangelist Chicas RBC 4.46 106/ul Normal 4.20-5.40 [facility] Comment on above: Performed By: #### B MP #### [facility] [address] [place] [address] Dr. Evangelist Chicas WBC 7.4 103/ul Normal 4.0-11.0 [facility] Comment on above: Performed By: #### B MP #### [facility] [address] [place] [address] Dr. Evangelist Chicas PROF CHEM 8 (BAS METB)on Anion gap [Moles/Vol] 11.8 mmol/L Normal [facility] Comment on above: Performed By: #### B MP #### [facility] [address] [place] [address] Dr. Evangelist Chicas Calcium [Mass/Vol] 9.3 mg/dL Normal 8.5-10.1 [facility] Comment on above: Performed By: #### B MP #### [facility] [address] [place] [address] Dr. Evangelist Chicas Chloride [Moles/Vol] 99 mmol/L Normal 98-107 [facility] Comment on above: Performed By: #### B MP #### [facility] [address] [place] [address] Dr. Evangelist Chicas CO2 [Moles/Vol] 31.6 mmol/L Normal 21.0-32.0 [facility] Comment on above: Performed By: #### B MP #### [facility] [address] [place] [address] Dr. Evangelist Chicas Creatinine [Mass/Vol] 0.75 mg/dL Normal 0.55-1.02 [facility] Comment on above: Performed By: #### B MP #### [facility] [address] [place] [address] [address] Evangelist hCicas EGFR-AF SUDANESE >60 Normal >=60 [facility] Comment on above: Performed By: #### B MP #### [facility] [address] [place] [address] [address] Evangelist Chicas EGFR-NON AF SUDANESE >60 Normal >=60 [facility] Comment on above: Performed By: #### B MP #### [facility] [address] [place] [address] [address] Evangelist Chicas Glucose [Mass/Vol] 162 mg/dL Critically high 74-106 [facility] Comment on above: Performed By: #### B MP #### [facility] [address] [place] [address] Dr. Evangelist Chicas Potassium [Moles/Vol] 4.4 mmol/L Normal 3.5-5.1 [facility] Comment on above: Performed By: #### B MP #### [facility] [address] [place] [address] [address] Evangelist Chicas Sodium [Moles/Vol] 138 mmol/L Normal 136-145 [facility] Comment on above: Performed By: #### B MP #### [facility] [address] [place] [address] Dr. Evangelist Chicas Urea nitrogen [Mass/Vol] 32.0 mg/dL Critically high 7.0-18.0 [facility] Comment on above: Performed By: #### B MP #### [facility] [address] [place] [address] Dr. Evangelist Chicas Urea nitrogen/Creatinin e [Mass ratio] 42.7 mg/mg Normal [facility] Comment on above: Performed By: #### B MP #### [facility] [address] [place] [address] Dr. Evangelist Chicas CBC AUTO DIFFon 11-13-2022 BASO # 0.0 103/ul Normal 0.0-0.1 [facility] Comment on above: Performed By: #### C BC #### [facility] [address] [place] [address] [address] Evangelist Chicas Basophils/100 WBC (Bld) 0.1 % Critically low 0.2-2.0 [facility] Comment on above: Performed By: #### C BC #### [facility] [address] [place] [address] [address] Evangelist Chicas EO # 0.0 103/ul Normal 0.0-0.7 [facility] Comment on above: Performed By: #### C BC #### [facility] [address] [place] [address] [address] Evangelist Chicas Eosinophils/100 WBC (Bld) 0.0 % Critically low 0.9-7.0 [facility] Comment on above: Performed By: #### C BC #### [facility] [address] [place] [address] Dr. Evangelist Chicas Erythrocyte distribution width (RBC) [Ratio] 12.9 % Normal 11.0-15.0 [facility] Comment on above: Performed By: #### C BC #### [facility] [address] [place] [address] [address] Evangelist Chicas Hematocrit (Bld) [Volume fraction] 39.0 % Normal 36.0-48.0 [facility] Comment on above: Performed By: #### C BC #### [facility] [address] [place] [address] [address] Evangelits Chicas Hemoglobin (Bld) [Mass/Vol] 12.3 g/dL Normal 12.0-16.0 [facility] Comment on above: Performed By: #### C BC #### [facility] [address] [place] [address] [address] Evangelist Chicas IG # 0.04 10e3/ul Critically high 0.00-0.03 [facility] Comment on above: Performed By: #### C BC #### [facility] [address] [place] [address] [address] Evangelist Chicas IG % 0.4 % Normal 0.0-0.5 [facility] Comment on above: Performed By: #### C BC #### [facility] [address] [place] [address] [address] Evangelist Chicas LYMPH # 0.5 103/ul Critically low 1.2-3.8 [facility] Comment on above: Performed By: #### C BC #### [facility] [address] [place] [address] Dr. Evangelist Chicas Lymphocytes/100 WBC (Bld) 4.5 % Critically low 20.5-60.0 [facility] Comment on above: Performed By: #### C BC #### [facility] [address] [place] [address] Dr. Evangelist Chicas MANUAL DIFF REQ NO Normal [facility] Comment on above: Performed By: #### C BC #### [facility] [address] [place] [address] Dr. Evangelist Chicas MCH (RBC) [Entitic mass] 29.7 pg Normal 26.7-34.0 [facility] Comment on above: Performed By: #### C BC #### [facility] [address] [place] [address] Dr. Evangelist Chicas MCHC (RBC) [Mass/Vol] 31.5 g/dL Normal 29.9-35.2 [facility] Comment on above: Performed By: #### C BC #### [facility] [address] [place] [address] Dr. Evangelist Chicas MCV (RBC) [Entitic vol] 94.2 fL Normal 81.0-99.0 [facility] Comment on above: Performed By: #### C BC #### [facility] [address] [place] [address] Dr. Evangelist Chicas MONO # 0.2 103/ul Critically low 0.3-0.8 [facility] Comment on above: Performed By: #### C BC #### [facility] [address] [place] [address] Dr. Evangelist Chicas Monocytes/100 WBC (Bld) 1.5 % Critically low 1.7-12.0 [facility] Comment on above: Performed By: #### C BC #### [facility] [address] [place] [address] Dr. Evangelist Chicas NEUT # 10.5 103/ul Critically high 1.4-6.5 [facility] Comment on above: Performed By: #### C BC #### [facility] [address] [place] [address] Dr. Evangelist Chicas Neutrophils/100 WBC (Bld) 93.5 % Critically high 43.0-75.0 [facility] Comment on above: Performed By: #### C BC #### [facility] [address] [place] [address] Dr. Evangelist Chicas Platelet mean volume (Bld) [Entitic vol] 10.4 fL Normal 9.5-13.5 [facility] Comment on above: Performed By: #### C BC #### [facility] [facility] [address] [place] [address] Dr. Evangelist Chicas PLT 169 103/ul Normal 150-450 [facility] Comment on above: Performed By: #### C BC #### [facility] [address] [place] [address] Dr. Evangelist Chicas RBC 4.14 106/ul Critically low 4.20-5.40 [facility] Comment on above: Performed By: #### C BC #### [facility] [address] [place] [address] Dr. Evangelist Chicas WBC 11.2 103/ul Critically high 4.0-11.0 [facility] [place] [facility] Comment on above: Performed By: #### C BC #### [facility] [address] [place] [address] Dr. Evangelist Chicas CULTURE SPUTUMon 11-13-2022 CULTURE SPUTUM Culture Observations : NORMAL RESPIRATORY SHAINA. Normal [facility] Comment on above: Performed By: #### B MP #### [facility] [address] [place] [address] Dr. Evangelist Chicas PROF CHEM 8 (BAS METB)on Anion gap [Moles/Vol] 9.2 mmol/L Normal [facility] Comment on above: Performed By: #### D DIM #### [facility] [address] [address] [address] Evangelist Chicas Calcium [Mass/Vol] 9.1 mg/dL Normal 8.5-10.1 [facility] Comment on above: Performed By: #### D DIM #### [facility] [address] [address] [address] Evangelist Chicas Chloride [Moles/Vol] 100 mmol/L Normal 98-107 [facility] Comment on above: Performed By: #### D DIM #### [facility] [address] [address] [address] Evangelist Chicas CO2 [Moles/Vol] 33.8 mmol/L Critically high 21.0-32.0 [facility] Comment on above: Performed By: #### D DIM #### [facility] [address] [place] [address] Dr. Evangelist Chicas Creatinine [Mass/Vol] 0.85 mg/dL Normal 0.55-1.02 [facility] Comment on above: Performed By: #### D DIM #### [facility] [address] [address] [address] Evangelist Chicas EGFR-AF SUDANESE >60 Normal >=60 [facility] [place] [facility] Comment on above: Performed By: #### D DIM #### [facility] [address] [place] [address] Dr. Evangelist Chicas EGFR-NON AF SUDANESE >60 Normal >=60 [facility] Comment on above: Performed By: #### D DIM #### [facility] [address] [address] [address] Evangelist Chicas Glucose [Mass/Vol] 151 mg/dL Critically high 74-106 [facility] Comment on above: Performed By: #### D DIM #### [facility] [address] [address] [address] Evangelist Chicas Potassium [Moles/Vol] 4.0 mmol/L Normal 3.5-5.1 [facility] Comment on above: Performed By: #### D DIM #### [facility] [address] [address] [address] Evangelist Chicas Sodium [Moles/Vol] 139 mmol/L Normal 136-145 [facility] Comment on above: Performed By: #### D DIM #### [facility] [address] [place] [address] Dr. Evangelist Chicas Urea nitrogen [Mass/Vol] 29.0 mg/dL Critically high 7.0-18.0 [facility] Comment on above: Performed By: #### D DIM #### [facility] [address] [place] [address] Dr. Evangelist Chicas Urea nitrogen/Creatinin e [Mass ratio] 34.1 mg/mg Normal [facility] Comment on above: Performed By: #### D DIM #### [facility] [address] [place] [address] Dr. Evangelist Chicas CBC AUTO DIFFon 11-12-2022 BASO # 0.0 103/ul Normal 0.0-0.1 [facility] Comment on above: Performed By: #### C BC #### [facility] [address] [place] [address] Dr. Evangelist Chicas Basophils/100 WBC (Bld) 0.1 % Critically low 0.2-2.0 [facility] Comment on above: Performed By: #### C BC #### [facility] [address] [place] [address] Dr. Evangelist Chicas EO # 0.0 103/ul Normal 0.0-0.7 [facility] Comment on above: Performed By: #### C BC #### [facility] [address] [place] [address] Dr. Evangelist Chiacs Eosinophils/100 WBC (Bld) 0.0 % Critically low 0.9-7.0 [facility] Comment on above: Performed By: #### C BC #### [facility] [address] [place] [address] Dr. Evangelist Chicas Erythrocyte distribution width (RBC) [Ratio] 12.8 % Normal 11.0-15.0 [facility] Comment on above: Performed By: #### C BC #### [facility] [address] [place] [address] Dr. Evangelist Chicas Hematocrit (Bld) [Volume fraction] 41.5 % Normal 36.0-48.0 [facility] Comment on above: Performed By: #### C BC #### [facility] [address] [place] [address] Dr. Evangelist Chicas Hemoglobin (Bld) [Mass/Vol] 13.0 g/dL Normal 12.0-16.0 [facility] Comment on above: Performed By: #### C BC #### [facility] [address] [place] [address] Dr. Evangelist Chicas IG # 0.04 10e3/ul Critically high 0.00-0.03 [facility] Comment on above: Performed By: #### C BC #### [facility] [address] [place] [address] Dr. Evangelist Chicas IG % 0.3 % Normal 0.0-0.5 [facility] Comment on above: Performed By: #### C BC #### [facility] [address] [place] [address] Dr. Evangelist Chicas LYMPH # 0.5 103/ul Critically low 1.2-3.8 [facility] Comment on above: Performed By: #### C BC #### [facility] [address] [place] [address] Dr. Evangelist Chicas Lymphocytes/100 WBC (Bld) 3.7 % Critically low 20.5-60.0 [facility] Comment on above: Performed By: #### C BC #### [facility] [address] [place] [address] Dr. Evangelist Chicas MANUAL DIFF REQ NO Normal [facility] Comment on above: Performed By: #### C BC #### [facility] [address] [place] [address] Dr. Evangelist Chicas MCH (RBC) [Entitic mass] 29.5 pg Normal 26.7-34.0 [facility] Comment on above: Performed By: #### C BC #### [facility] [address] [place] [address] Dr. Evangelist Chicas MCHC (RBC) [Mass/Vol] 31.3 g/dL Normal 29.9-35.2 [facility] Comment on above: Performed By: #### C BC #### [facility] [address] [address] [address] Evangelist Chicas MCV (RBC) [Entitic vol] 94.3 fL Normal 81.0-99.0 [facility] Comment on above: Performed By: #### C BC #### [facility] [address] [address] [address] Evangelist Chicas MONO # 0.2 103/ul Critically low 0.3-0.8 [facility] Comment on above: Performed By: #### C BC #### [facility] [address] [place] [address] Dr. Evangelist Chicas Monocytes/100 WBC (Bld) 1.3 % Critically low 1.7-12.0 [facility] Comment on above: Performed By: #### C BC #### [facility] [address] [place] [address] Dr. Evangelist Chicas NEUT # 12.4 103/ul Critically high 1.4-6.5 [facility] [place] [facility] Comment on above: Performed By: #### C BC #### [facility] [address] [place] [address] Dr. Evangelist Chicas Neutrophils/100 WBC (Bld) 94.6 % Critically high 43.0-75.0 [facility] Comment on above: Performed By: #### C BC #### [facility] [address] [place] [address] Dr. Evangelist Chicas Platelet mean volume (Bld) [Entitic vol] 9.9 fL Normal 9.5-13.5 [facility] Comment on above: Performed By: #### C BC #### [facility] [address] [place] [address] Dr. Evangelist Chicas PLT 189 103/ul Normal 150-450 [facility] Comment on above: Performed By: #### C BC #### [facility] [address] [place] [address] Dr. Evangelist Chicas RBC 4.40 106/ul Normal 4.20-5.40 [facility] Comment on above: Performed By: #### C BC #### [facility] [address] [place], [place] [address] Dr. Evangelist Chicas WBC 13.1 103/ul Critically high 4.0-11.0 [facility] [place] [facility] Comment on above: Performed By: #### C BC #### [facility] [address] [place], [place] [address] Dr. Evangelist Chicas ECHOCARDIO M/2D COMPLETEon 0 11-12-2022 ECHOCARDIO M/2D COMPLETE Patient: LAWRENCE JUARES Exam Date: 11/12/2022 : 1965 Gender:F Ordering : DR MANE LEE . Admission #: [id number] Family : DR VAMSHI MORGAN . Order #: [id number] CLICK HERE TO VIEW EXAM ECHOCARDIOGRAM REPORT [...] Goncalves M.D. on 11/12/2022 at 13:56 Normal [facility] PROF CHEM 8 (BAS METB)on Anion gap [Moles/Vol] 10.2 mmol/L Normal [facility] Comment on above: Performed By: #### B MP #### [facility] [address] [address] [address] Evangelist Chicas Calcium [Mass/Vol] 9.2 mg/dL Normal 8.5-10.1 [facility] Comment on above: Performed By: #### B MP #### [facility] [address] [address] [address] Evangelist Chicas Chloride [Moles/Vol] 99 mmol/L Normal 98-107 [facility] Comment on above: Performed By: #### B MP #### [facility] [address] [address] [address] Evangelist Chicas CO2 [Moles/Vol] 31.5 mmol/L Normal 21.0-32.0 [facility] [place] [facility] Comment on above: Performed By: #### B MP #### [facility] [address] [address] [address] Evangelist Chicas Creatinine [Mass/Vol] 0.87 mg/dL Normal 0.55-1.02 [facility] Comment on above: Performed By: #### B MP #### [facility] [address] [address] [address] Evangelist Chicas EGFR-AF SUDANESE >60 Normal >=60 [facility] [place] [facility] Comment on above: Performed By: #### B MP #### [facility] [address] [address] [address] Evangelist Chicas EGFR-NON AF SUDANESE >60 Normal >=60 [facility] Comment on above: Performed By: #### B MP #### [facility] [address] [address] [address] Evangelist Chicas Glucose [Mass/Vol] 168 mg/dL Critically high 74-106 [facility] Comment on above: Performed By: #### B MP #### [facility] [address] [place] [address] Dr. Evangelist Chicas Potassium [Moles/Vol] 3.7 mmol/L Normal 3.5-5.1 [facility] Comment on above: Performed By: #### B MP #### [facility] [address] [place] [address] Dr. Evangelist Chicas Sodium [Moles/Vol] 137 mmol/L Normal 136-145 [facility] Comment on above: Performed By: #### B MP #### [facility] [address] [place] [address] Dr. Evangelist Chicas Urea nitrogen [Mass/Vol] 28.0 mg/dL Critically high 7.0-18.0 [facility] Comment on above: Performed By: #### B MP #### [facility] [address] [place] [address] Dr. Evangelist Chicas Urea nitrogen/Creatinin e [Mass ratio] 32.2 mg/mg Normal [facility] Comment on above: Performed By: #### B MP #### [facility] [address] [place] [address] Dr. Evangelist Chicas CBC AUTO DIFFon 11-11-2022 BASO # 0.0 103/ul Normal 0.0-0.1 [facility] Comment on above: Performed By: #### C BC #### [facility] [address] [place] [address] Dr. Evangelist Chicas Basophils/100 WBC (Bld) 0.2 % Normal 0.2-2.0 [facility] Comment on above: Performed By: #### C BC #### [facility] [address] [place] [address] Dr. Evangelist Chicas EO # 0.0 103/ul Normal 0.0-0.7 [facility] Comment on above: Performed By: #### C BC #### [facility] [address] [place] [address] Dr. Evangelist Chicas Eosinophils/100 WBC (Bld) 0.0 % Critically low 0.9-7.0 [facility] Comment on above: Performed By: #### C BC #### [facility] [address] [place] [address] Dr. Evangelist Chicas Erythrocyte distribution width (RBC) [Ratio] 12.7 % Normal 11.0-15.0 [facility] Comment on above: Performed By: #### C BC #### [facility] [address] [place] [address] Dr. Evangelist Chicas Hematocrit (Bld) [Volume fraction] 41.7 % Normal 36.0-48.0 [facility] Comment on above: Performed By: #### C BC #### [facility] [address] [place] [address] Dr. Evangelist Chicas Hemoglobin (Bld) [Mass/Vol] 13.0 g/dL Normal 12.0-16.0 [facility] Comment on above: Performed By: #### C BC #### [facility] [address] [place] [address] Dr. Evangelist Chicas IG # 0.03 10e3/ul Normal 0.00-0.03 [facility] Comment on above: Performed By: #### C BC #### [facility] [address] [place] [address] Dr. Evangelist Chicas IG % 0.5 % Normal 0.0-0.5 [facility] Comment on above: Performed By: #### C BC #### [facility] [address] [place] [address] Dr. Evangelist Chicas LYMPH # 0.4 103/ul Critically low 1.2-3.8 [facility] Comment on above: Performed By: #### C BC #### [facility] [address] [place] [address] Dr. Evangelist Chicas Lymphocytes/100 WBC (Bld) 5.8 % Critically low 20.5-60.0 [facility] Comment on above: Performed By: #### C BC #### [facility] [address] [place] [address] Dr. Evangelist Chicas MANUAL DIFF REQ NO Normal [facility] Comment on above: Performed By: #### C BC #### [facility] [address] [place] [address] Dr. Evangelist Chicas MCH (RBC) [Entitic mass] 29.3 pg Normal 26.7-34.0 [facility] Comment on above: Performed By: #### C BC #### [facility] [address] [place] [address] Dr. Evangelist Chicas MCHC (RBC) [Mass/Vol] 31.2 g/dL Normal 29.9-35.2 [facility] Comment on above: Performed By: #### C BC #### [facility] [address] [place] [address] Dr. Evangelist Chicas MCV (RBC) [Entitic vol] 93.9 fL Normal 81.0-99.0 [facility] Comment on above: Performed By: #### C BC #### [facility] [address] [place] [address] Dr. Evangelist Chicas MONO # 0.0 103/ul Critically low 0.3-0.8 [facility] Comment on above: Performed By: #### C BC #### [facility] [address] [place] [address] Dr. Evangelist Chicas Monocytes/100 WBC (Bld) 0.6 % Critically low 1.7-12.0 [facility] Comment on above: Performed By: #### C BC #### [facility] [address] [place] [address] Dr. Evangelist Chicas NEUT # 6.0 103/ul Normal 1.4-6.5 [facility] Comment on above: Performed By: #### C BC #### [facility] [address] [place] [address] Dr. Evangelist Chicas Neutrophils/100 WBC (Bld) 92.9 % Critically high 43.0-75.0 [facility] Comment on above: Performed By: #### C BC #### [facility] [address] [place] [address] Dr. Evangelist Chicas Platelet mean volume (Bld) [Entitic vol] 10.8 fL Normal 9.5-13.5 [facility] Comment on above: Performed By: #### C BC #### [facility] [address] [place] [address] Dr. Evangelist Chicas PLT 141 103/ul Critically low 150-450 [facility] Comment on above: Performed By: #### C BC #### [facility] [address] [place] [address] Dr. Evangelist Chicas RBC 4.44 106/ul Normal 4.20-5.40 [facility] Comment on above: Performed By: #### C BC #### [facility] [address] [address] [address] Evangelist Chicas WBC 6.4 103/ul Normal 4.0-11.0 [facility] Comment on above: Performed By: #### C BC #### [facility] [address] [place] [address] Dr. Evangelist Chicas PROF CHEM 8 (BAS METB)on Anion gap [Moles/Vol] 7.5 mmol/L Normal [facility] Comment on above: Performed By: #### B MP #### [facility] [address] [place] [address] Dr. Evangelist Chicas Calcium [Mass/Vol] 8.9 mg/dL Normal 8.5-10.1 [facility] Comment on above: Performed By: #### B MP #### [facility] [address] [place] [address] Dr. Evangelist Chicas Chloride [Moles/Vol] 100 mmol/L Normal 98-107 [facility] Comment on above: Performed By: #### B MP #### [facility] [address] [place] [address] Dr. Evangelist Chicas CO2 [Moles/Vol] 33.9 mmol/L Critically high 21.0-32.0 [facility] Comment on above: Performed By: #### B MP #### [facility] [address] [place] [address] Dr. Evangelist Chicas Creatinine [Mass/Vol] 0.65 mg/dL Normal 0.55-1.02 [facility] Comment on above: Performed By: #### B MP #### [facility] [address] [place], [place] [id number] Dr. Evangelist Chicas EGFR-AF SUDANESE >60 Normal >=60 [facility] [place] [facility] Comment on above: Performed By: #### B MP #### [facility] [address] [place] [address] Dr. Evangelist Chcias EGFR-NON AF SUDANESE >60 Normal >=60 [facility] Comment on above: Performed By: #### B MP #### [facility] [address] [place] [address] Dr. Evangelist Chicas Glucose [Mass/Vol] 152 mg/dL Critically high 74-106 [facility] Comment on above: Performed By: #### B MP #### [facility] [address] [place] [address] Dr. Evangelist Chicas Potassium [Moles/Vol] 4.4 mmol/L Normal 3.5-5.1 [facility] Comment on above: Performed By: #### B MP #### [facility] [address] [place] [address] Dr. Evangelist Chicas Sodium [Moles/Vol] 137 mmol/L Normal 136-145 [facility] Comment on above: Performed By: #### B MP #### [facility] [address] [place] [address] Dr. Evangelist Chicas Urea nitrogen [Mass/Vol] 16.0 mg/dL Normal 7.0-18.0 [facility] Comment on above: Performed By: #### B MP #### [facility] [address] [place] [address] Dr. Evangelist Chicas Urea nitrogen/Creatinin e [Mass ratio] 24.6 mg/mg Normal [facility] Comment on above: Performed By: #### B MP #### [facility] [address] [place] [address] Dr. Evangelist Chicas BNPon 11-10-2022 Natriuretic peptide B (Bld) [Mass/Vol] 330.0 pg/mL Normal <=900.0 [facility] Comment on above: Performed By: #### B MP #### [facility] [address] [place] [address] Dr. Evangelist Chicas CARDIAC LIS ADMITon 023 CK [Catalytic activity/Vol] 40 U/L Normal 26-192 [facility] Comment on above: Performed By: #### D DIM #### [facility] [address] [place] [address] Dr. Evangelist Chicas CK.MB [Mass/Vol] 1.06 ng/mL Normal <=3.60 [facility] Comment on above: Performed By: #### D DIM #### [facility] [address] [place] [address] Dr. Evangelist Chicas HSTROP 21.6 pg/mL Normal 4.0-51.3 [facility] Comment on above: Result Comment: CUT- OFF POINTS HAVE BEEN ESTABLISHED BASED ON THE FOURTH UNIVERSAL DEFINITIONS OF MYOCARDIAL INFARCTION. THE UPPER REFERENCE LIMIT (URL) OF TROPONIN, DEFINED THE 99TH PERCENTILE OF cTnI DISTRIBUTION IN A REFERENCE POPULATION, HAS BEEN CONFIRMED THE DECISION THRESHOLD FOR [place] DIAGNOSIS. Performed By: #### D DIM #### [facility] [address] [place] [address] Dr. Evangelist Chicas VANNA 41 ng/mL Normal 9-82 [facility] Comment on above: Performed By: #### D DIM #### [facility] [address] [place] [address] Dr. Evangelist Chicas CBC AUTO DIFFon 11-10-2022 BASO # 0.1 103/ul Normal 0.0-0.1 [facility] Comment on above: Performed By: #### B MP #### [facility] [address] [place] [address] Dr. Evangelist Chicas Basophils/100 WBC (Bld) 0.7 % Normal 0.2-2.0 [facility] Comment on above: Performed By: #### B MP #### [facility] [address] [place] [address] Dr. Evangelist Chicas EO # 0.1 103/ul Normal 0.0-0.7 [facility] Comment on above: Performed By: #### B MP #### [facility] [address] [place] [address] Dr. Evangelist Chicas Eosinophils/100 WBC (Bld) 1.1 % Normal 0.9-7.0 [facility] Comment on above: Performed By: #### B MP #### [facility] [address] [place] [address] Dr. Evangelist Chicas Erythrocyte distribution width (RBC) [Ratio] 12.8 % Normal 11.0-15.0 [facility] Comment on above: Performed By: #### B MP #### [facility] [address] [place] [address] Dr. Evangelist Chicas Hematocrit (Bld) [Volume fraction] 41.1 % Normal 36.0-48.0 [facility] Comment on above: Performed By: #### B MP #### [facility] [address] [place] [address] Dr. Evangelist Chicas Hemoglobin (Bld) [Mass/Vol] 13.2 g/dL Normal 12.0-16.0 [facility] Comment on above: Performed By: #### B MP #### [facility] [address] [place] [address] Dr. Evangelist Chicas IG # 0.02 10e3/ul Normal 0.00-0.03 [facility] Comment on above: Performed By: #### B MP #### [facility] [address] [place] [address] Dr. Evangelist Chicas IG % 0.3 % Normal 0.0-0.5 [facility] Comment on above: Performed By: #### B MP #### [facility] [address] [place] [address] Dr. Evangelist Chicas LYMPH # 0.7 103/ul Critically low 1.2-3.8 [facility] Comment on above: Performed By: #### B MP #### [facility] [address] [place] [address] Dr. Evangelist Chicas Lymphocytes/100 WBC (Bld) 9.5 % Critically low 20.5-60.0 [facility] Comment on above: Performed By: #### B MP #### [facility] [address] [place] [address] Dr. Evangelist Chicas MANUAL DIFF REQ NO Normal [facility] Comment on above: Performed By: #### B MP #### [facility] [address] [address] [address] Evangelist Chicas MCH (RBC) [Entitic mass] 29.6 pg Normal 26.7-34.0 [facility] Comment on above: Performed By: #### B MP #### [facility] [address] [address] [address] Evangelist Chicas MCHC (RBC) [Mass/Vol] 32.1 g/dL Normal 29.9-35.2 [facility] Comment on above: Performed By: #### B MP #### [facility] [address] [address] [address] Evangelist Chicas MCV (RBC) [Entitic vol] 92.2 fL Normal 81.0-99.0 [facility] Comment on above: Performed By: #### B MP #### [facility] [address] [place] [address] Dr. Evangelist Chicas MONO # 0.6 103/ul Normal 0.3-0.8 [facility] Comment on above: Performed By: #### B MP #### [facility] [address] [place] [address] Dr. Evangelist Chicas Monocytes/100 WBC (Bld) 8.1 % Normal 1.7-12.0 [facility] Comment on above: Performed By: #### B MP #### [facility] [address] [address] [address] Evangelist Chicas NEUT # 6.1 103/ul Normal 1.4-6.5 [facility] Comment on above: Performed By: #### B MP #### [facility] [address] [address] [address] Evangelist Chicas Neutrophils/100 WBC (Bld) 80.3 % Critically high 43.0-75.0 [facility] Comment on above: Performed By: #### B MP #### [facility] [address] [place] [address] Dr. Evangelist Chicas Platelet mean volume (Bld) [Entitic vol] 9.8 fL Normal 9.5-13.5 [facility] Comment on above: Performed By: #### B MP #### [facility] [address] [place], [place] [address] Dr. Evangelist Chicas PLT 180 103/ul Normal 150-450 [facility] Comment on above: Performed By: #### B MP #### [facility] [address] [place], [place] [address] Dr. Evangelist Chicas RBC 4.46 106/ul Normal 4.20-5.40 [facility] Comment on above: Performed By: #### B MP #### [facility] [address] [place], [place] [address] Dr. Evangelist Chicas WBC 7.6 103/ul Normal 4.0-11.0 [facility] Comment on above: Performed By: #### B MP #### [facility] [address] [place], [place] [address] Dr. Evangelist Chicas CTA CHEST WO W [...] infectious or inflammatory process. Electronically authenticated by: DELFabrice ENRIQUE Date: 2022-11-10 17:30 Normal [facility] Covid-19 PCR (CVDTB)on SARS-CoV-2 (COVID-19) RNA SHENG+probe Ql (Unsp spec) Not detected Normal NOT DETECTED [facility] Comment on above: Result Comment: When diagnostic [...] for this test is supported by the [place] of Health and Human Service's declaration that [...] used). Performed By: #### B MP #### [facility] [address] [place] [address] Dr. Evangelist Chicas D-DIMERon 11-10-2022 D-DIMER 0.63 mg/L FEU Critically high <=0.59 [facility] Comment on above: Performed By: #### D DIM #### [facility] [address] [place] [address] Dr. Evangelist Chicas D-DIMER COMMENTS SEE BELOW Normal [facility] Comment on above: Result Comment: Incr eases [...] hospitalization. Performed By: #### D DIM #### [facility] [address] [address] [address] Evangelist Chicas ER URINE PROFILEon 3 Bilirubin Ql (U) Negative Normal NEGATIVE [facility] [place] [facility] Comment on above: Performed By: #### U MICRO, ERUR #### [facility] [address] [place] [address] Dr. Evangelist Chicas Clarity (U) CLEAR Normal CLEAR [facility] Comment on above: Performed By: #### U MICRO, ERUR #### [facility] [address] [address] [address] Evangelist Chicas Color (U) LT. YELLOW Normal YELLOW [facility] Comment on above: Performed By: #### U MICRO, ERUR #### [facility] [address] [place] [address] Dr. Evangelist NURD A micrscopic examination will be performed if indicated. Normal [facility] Comment on above: Performed By: #### U MICRO, ERUR #### [facility] [address] [address] [address] Evangelist Chicas Glucose Ql (U) Negative Normal NEGATIVE [facility] Comment on above: Performed By: #### U MICRO, ERUR #### [facility] [address] [place] [address] Dr. Evangelist Chicas Hemoglobin Ql (U) TRACE-INTACT Abnormal NEGATIVE [facility] Comment on above: Performed By: #### U MICRO, ERUR #### [facility] [address] [address] [address] Evangelist Chicas Ketones Ql (U) Negative Normal NEGATIVE [facility] Comment on above: Performed By: #### U MICRO, ERUR #### [facility] [address] [place] [address] Dr. Evangelist Chicas LEUKOCYTES Negative Normal NEGATIVE [facility] Comment on above: Performed By: #### U MICRO, ERUR #### [facility] [address] [place] [address] Dr. Evangelist Chicas Nitrite Ql (U) Negative Normal NEGATIVE [facility] Comment on above: Performed By: #### U MICRO, ERUR #### [facility] [address] [place] [address] Dr. Evangelist Chicas pH (U) 6.0 [pH] Normal 5-9 [facility] Comment on above: Performed By: #### U MICRO, ERUR #### [facility] [address] [place] [address] Dr. Evangelist Chicas SPEC GRAVITY 1.010 Normal 1.005-<=1.025 [facility] Comment on above: Performed By: #### U MICRO, ERUR #### [facility] [address] [place] [address] Dr. Evangelist Chicas UA PROTEIN Negative Normal NEGATIVE/ TRACE [facility] Comment on above: Performed By: #### U MICRO, ERUR #### [facility] [address] [place] [address] Dr. Evangelist Chicas UR MICRO IND INDICATED Normal [facility] Comment on above: Performed By: #### U MICRO, ERUR #### [facility] [address] [place] [address] Dr. Evangelist Chicas Urobilinogen Qn (U) 0.2 {Amalia'U}/dL Normal 0.2 - 1.0 [facility] Comment on above: Performed By: #### U MICRO, ERUR #### [facility] [address] [place] [address] Dr. Evangelist Chicas INFLUENZA A AND B AGon 11-10 [facility] SEE BELOW Normal [facility] Comment on above: Result Comment: Nega tive for Flu A protein angiten. Infection due to Flu A cannot be ruled out. Flu A angiten in the sample may be below the detection limit of the test. Performed By: #### D DIM #### [facility] [address] [place] [address] Dr. Evangelist Chicas INFLUBNEGH SEE BELOW Normal [facility] Comment on above: Result Comment: Nega tive for Flu B protein antigen. Infection due to Flu B cannot be ruled out. Flu B antigen in the sample may be below the detection limit of the test. Performed By: #### D DIM #### [facility] [address] [place] [address] Dr. Evangelist Chicas INFLUENZA A AG Negative Normal NEGATIVE SEE COMMENT [facility] Comment on above: Performed By: #### D DIM #### [facility] [address] [place] [address] Dr. Evangelist Chicas INFLUENZA B AG Negative Normal NEGATIVE SEE COMMENT [facility] Comment on above: Performed By: #### D DIM #### [facility] [address] [place] [address] Dr. Evangelist Chicas PROF 14(COMP METB)on 023 Albumin [Mass/Vol] 3.1 g/dL Critically low 3.4-5.0 [facility] e [facility] Comment on above: Performed By: #### B MP #### [facility] [address] [place] [address] Dr. Evaneglist Chicas Albumin/Globulin [Mass ratio] 0.7 {ratio} Normal [facility] Comment on above: Performed By: #### B MP #### [facility] [address] [place] [address] Dr. Evangelist Chicas ALP [Catalytic activity/Vol] 108 U/L Normal 46-116 [facility] Comment on above: Performed By: #### B MP #### [facility] [address] [place] [address] Dr. Evangelist Chicas ALT [Catalytic activity/Vol] 20 U/L Normal 14-59 [facility] Comment on above: Performed By: #### B MP #### [facility] [address] [place] [address] Dr. Evangelist Chicas Anion gap [Moles/Vol] 6.0 mmol/L Normal [facility] Comment on above: Performed By: #### B MP #### [facility] [address] [place] [address] Dr. Evangelist Chicas AST [Catalytic activity/Vol] 16 U/L Normal 15-37 [facility] Comment on above: Performed By: #### B MP #### [facility] [address] [place] [address] Dr. Evangelist Chicas Bilirubin [Mass/Vol] 0.6 mg/dL Normal 0.2-1.0 [facility] Comment on above: Performed By: #### B MP #### [facility] [address] [address] [address] Evangelist Chicas Calcium [Mass/Vol] 9.1 mg/dL Normal 8.5-10.1 [facility] Comment on above: Performed By: #### B MP #### [facility] [address] [address] [address] Evangelist Chicas Chloride [Moles/Vol] 97 mmol/L Critically low 98-107 [facility] Comment on above: Performed By: #### B MP #### [facility] [address] [address] [address] Evangelist Chicas CO2 [Moles/Vol] 36.9 mmol/L Critically high 21.0-32.0 [facility] Comment on above: Performed By: #### B MP #### [facility] [address] [address] [address] Evangelist Chicas Creatinine [Mass/Vol] 0.71 mg/dL Normal 0.55-1.02 [facility] Comment on above: Performed By: #### B MP #### [facility] [address] [place] [address] Dr. Evangelist Chicas EGFR-AF SUDANESE >60 Normal >=60 [facility] [place] [facility] Comment on above: Performed By: #### B MP #### [facility] [address] [address] [address] Evangelist Chicas EGFR-NON AF SUDANESE >60 Normal >=60 [facility] Comment on above: Performed By: #### B MP #### [facility] [address] [address] [address] Evangelist Chicas Globulin (S) [Mass/Vol] 4.4 g/dL Normal [facility] Comment on above: Performed By: #### B MP #### [facility] [address] [address] [address] Evangelist Chicas Glucose [Mass/Vol] 124 mg/dL Critically high 74-106 [facility] Comment on above: Performed By: #### B MP #### [facility] [address] [address] [address] Evangelist Chicas Potassium [Moles/Vol] 3.9 mmol/L Normal 3.5-5.1 [facility] Comment on above: Performed By: #### B MP #### [facility] [address] [address] [address] Evangelist Chicas Protein [Mass/Vol] 7.5 g/dL Normal 6.4-8.2 [facility] Comment on above: Performed By: #### B MP #### [facility] [address] [address] [address] Evangelist Chicas Sodium [Moles/Vol] 136 mmol/L Normal 136-145 [facility] Comment on above: Performed By: #### B MP #### [facility] [address] [address] [address] Evangelist Chicas Urea nitrogen [Mass/Vol] 17.0 mg/dL Normal 7.0-18.0 [facility] Comment on above: Performed By: #### B MP #### [facility] [address] [address] [address] Evangelist Chicas Urea nitrogen/Creatinin e [Mass ratio] 23.9 mg/mg Normal [facility] Comment on above: Performed By: #### B MP #### [facility] [address] [address] [address] Evangelist Chicas URINE MICROSCOPIC ONLYon BACTERIA NONE SEEN Normal NONE SEEN [facility] Comment on above: Performed By: #### U MICRO, ERUR #### [facility] [address] [address] [address] Evangelist Chicas Bacteria identified Cx Nom (U) NOT INDICATED Normal [facility] Comment on above: Performed By: #### U MICRO, ERUR #### [facility] [address] [address] [address] Evangelist Chicas CAST NONE SEEN Normal NONE SEEN [facility] Comment on above: Performed By: #### U MICRO, ERUR #### [facility] [address] [address] [address] Evangelist Chicas Crystals LM Nom (Urine sed) NONE SEEN Normal NONE SEEN [facility] Comment on above: Performed By: #### U MICRO, ERUR #### [facility] [address] [place] [address] Dr. Evangelist Chicas Epithelial cells LM Ql (Urine sed) FEW Abnormal NONE SEEN /RARE [facility] Comment on above: Performed By: #### U MICRO, ERUR #### [facility] [address] [place] [address] Dr. Evangelist Chicas MUCOUS NONE SEEN Normal NONE SEEN [facility] Comment on above: Performed By: #### U MICRO, ERUR #### [facility] [address] [place] [address] Dr. Evangelist Chicas RBC 0-2 Normal 0-2 [facility] Comment on above: Performed By: #### U MICRO, ERUR #### [facility] [address] [place] [address] Dr. Evangelist Chicas WBC NONE SEEN Normal NONE SEEN [facility] Comment on above: Performed By: #### U MICRO, ERUR #### [facility] [address] [place] [address] Dr. Evangelist Chicas XR CHEST 1 Von [...] by: JH JAIN Date: 2022-11-10 15:24 Normal [facility] Vital Signs Date Time Vital Sign Value Performing Clinician Faci lity 12-23-2023 13:24-0500 Body height 160 cm Mane Lee MD Work Phone: [facility] 12-23-2023 13:24-0500 Body mass index (BMI) [Ratio] 49.25 kg/m2 Mane Lee MD Work Phone: [facility] 12-23-2023 13:24-0500 Body temperature 97.3 [degF] Mane Lee MD Work Phone: [facility] 12-23-2023 13:24-0500 Body weight 126.1 kg Mane Lee MD Work Phone: [facility] 12-23-2023 13:24-0500 Diastolic blood pressure 80 mm[Hg] Mane Lee MD Work Phone: [facility] 12-23-2023 13:24-0500 Heart rate 96 /min Mane Lee MD Work Phone: [facility] 12-23-2023 13:24-0500 SaO2% (BldA) [Mass fraction] 96 % Mane Lee MD Work Phone: [facility] 12-23-2023 13:24-0500 Systolic blood pressure 140 mm[Hg] Mane Lee MD Work Phone: [facility] Healthcare Encounters Encounter Date Encounter Type Care Provider Facility Start: 12-23-2023 End: 12-23-2023 ambulatory MANE LEE Not Available Start: 12-23-2023 Bamboo flowsheet Mane Lee MD Work Phone: [facility] Start: 12-23-2023 Bamboo flowsheet Mane Lee MD Work Phone: [facility] Start: 12-23-2023 End: 12-23-2023 Office outpatient visit 25 minutes Mane Lee MD Work Phone: [facility] Comment on above: Essential hypertensi on, benign (CMS/HCC) (Primary Dx); Degenerative lumbar spinal stenosis; Lumbar disc herniation with radiculopathy; Leg edema; Chronic obstructive pulmonary disease, unspecified COPD type (CMS/HCC) Start: 12-10-2023 End: 12-10-2023 ambulatory Lakisha Shipman Facility:[facility] Start: 12-10-2023 End: 12-10-2023 ambulatory MD Mane Lee Work Phone: [facility] Work Phone: Start: 12-10-2023 End: 12-10-2023 Patient encounter procedure MD Mane Lee Work Phone: [facility] Work Phone: Start: 11-26-2023 End: 11-26-2023 ambulatory MANE LEE Not Available Start: 10-31-2023 End: 10-31-2023 ambulatory MANE LEE Not Available Start: 08-25-2023 End: 08-26-2023 ambulatory Corine Frye MD Facility:[facility] Start: 01-29-2023 End: 01-30-[address] MANE LEE Facility: Start: 11-10-2022 End: 11-14-2022 Evaluation and management of inpatient DR MANE LEE Facility:[facility] Procedures Date Procedure Procedure Detail Performing Clinician Start: 12-10-2023 X-ray of lumbar spin e, six views including bending views MD Mane Lee Work Phone: Start: 01-29-2023 Mammography Mane sprague MD Work Phone: Start: 05-20-2022 Colonoscopy Mane sprague MD Work Phone: Plan of Treatment Date Care Activity Detail Author Start: 05-20-2032 Screening for malign ant neoplasm of colon [facility] Start: 02-24-2024 End: 02-24-2024 Patient encounter procedure 02/24/2024 9:00 AM EDT Office Visit [facility] [address] [place] [address] Mane Lee MD [address] [place] [address] [facility] Start: 01-30-2024 Screening for malign ant neoplasm of breast Mamm[facility] Start: 12-23-2023 End: 12-23-2023 Patient encounter procedure 12/23/2023 1:15 PM EST Office Visit [facility] [address] [place] [id number] Mane Lee MD [address] [place] [id number] Arrived [facility] Comment on above: Arrived Start: 1993 Screening for malign ant neoplasm of cervix [facility] Start: 1984 Screening for malign ant neoplasm of cervix Pap Smear [facility] Start: 1963 Screening for malign ant neoplasm of colon [facility] Payers Date Payer Category Payer Self-pay 2023 Unknown [id number] 2023 Unknown [id number] 2022 Unknown 1965 Unknown [id number] [id number] [id number] 1963 Unknown [id number] 2.16.84 [id number] 1963 Unknown [id number] [id number] 1963 Unknown [id number] 2.16.84 [id number] 1963 Unknown [id number] 2.16.84 [id number] 1963 Unknown [id number] 1959 Unknown [id number] Unknown [id number] 2.16.8 [id number] Social History Date Type Detail Facility [facility] Work Phone: Start: 1965 Sex Assigned At Female F [facility] Start: 10-31-2023 [facility] History of tobacco use Cigarette Smoker [facility] Start: 10-31-2023 End: 11-26-2023 Cigarettes smoked current (pack per day) - Reported 0.5 [facility] Start: 10-31-2023 Tobacco use and exposure Smoke less tobacco non-user [facility] Start: 11-26-2023 End: 12-23-2023 Humiliation, Afraid, Rape, and Kick questionnaire [HARK] [facility] Within the last year , have you been afraid of your partner or ex-partner? No [facility] Are you now , , , , never or living with a partner? [facility] How often to you hav e a drink containing alcohol? Never [facility] How many standard dr inks containing alcohol do you have on a typical day? Patient does not drink [facility] How hard is it for y ou to pay for the very basics like food, housing, medical care, and heating Not very hard [facility] Do you feel stress - tense, restless, nervous, or anxious, or unable to sleep at night because your mind is troubled all the time - these days [OSQ] Not at all [facility] (I/We) worried wheth er (my/our) food would run out before (I/we) got money to buy more. Never true [facility] Start: 1965 Sex Assigned At Not on file [facility] History of Present illness Narrative 12-23-2023 Mane Lee MD - 12/23/2023 1:53 PM Gal Lee MD - 12/23/2023 1:51 PM Gal Lee MD - 12/23/2023 1:50 PM Gal Lee MD - 12/23/2023 1:50 PM EST Note Date & Type Note Facility 12-23-2023 History of Presen t illness Narrative Associated Problem(s): COPD (chronic obstructive pulmonary disease) (CMS/HCC) Symptoms stable and use albuterol PRN. Associated Problem(s): Lumbar disc herniation with radiculopathy Pain unchanged and continued weakness in legs. Scheduled with pain pain management and will try injections. Extend off work until 03/08/24. Associated Problem(s): Leg edema Edema controlled with lasix and continue PRN. Elevated legs throughout the day. Associated Problem(s): Essential hypertension, benign (CMS/HCC) BP controlled and monitor PRN. Associated Problem(s): Degenerative lumbar spinal stenosis Pain unchanged and continued weakness in legs. Scheduled with pain pain management and will try injections. Extend off work until 03/08/24. Subjective Patient ID: Lawrence Juares is a 58 y.o. female who presents for Follow-up (1 m). F/u HTN, back pain, COPD, edema, and weight. Patient unchanged today. Checking BP PRN and typically controlled. BP okay today. Taking medication daily and tolerating without side effects. Back pain unchanged. Continues to have severe pain in low back and across top hips. Pain radiates into bilateral gluteal region and down legs. Pain increased with walking and standing. Severe pain with bending and lifting. Trying to perform home PT exercises. Remains off work. Severe weakness in legs. Not able to complete ADLs due to symptoms and need to stop and take breaks in cooking or cleaning. Seen by surgeon and recommend try injections before consider surgical options. Scheduled with pain management next week. COPD stable. Mild SOB and cough with exertion. No sputum. Uses albuterol few times a week and helps when needed. Edema controlled with medication. Mild swelling at end of day and if on feet a lot. Edema improved in am and with elevation. Review of Systems Respiratory: Negative for cough, shortness of breath and wheezing. Cardiovascular: Negative for chest pain and palpitations. Gastrointestinal: Negative for abdominal pain, diarrhea, nausea and vomiting. Genitourinary: Negative for dysuria. Objective Physical Exam Constitutional: General: She is not in acute distress. Appearance: Normal appearance. HENT: Head: Normocephalic. Right Ear: Tympanic membrane normal. Left Ear: Tympanic membrane normal. Eyes: Extraocular Movements: Extraocular movements intact. Pupils: Pupils are equal, round, and reactive to light. Cardiovascular: Rate and Rhythm: Normal rate and regular rhythm. Heart sounds: No murmur heard. No friction rub. No gallop. Pulmonary: Effort: Pulmonary effort is normal. Breath sounds: Normal breath sounds. No wheezing, rhonchi or rales. Abdominal: General: Bowel sounds are normal. There is no distension. Palpations: Abdomen is soft. Tenderness: There is no abdominal tenderness. There is no guarding or rebound. Musculoskeletal: Cervical back: Neck supple. Right lower leg: No edema. Left lower leg: No edema. Neurological: Mental Status: She is alert. Assessment/Plan Problem List Items Addressed This Visit Essential hypertension, benign (CMS/HCC) - Primary BP controlled and monitor PRN. Leg edema Edema controlled with lasix and continue PRN. Elevated legs throughout the day. COPD (chronic obstructive pulmonary disease) (CMS/HCC) Symptoms stable and use albuterol PRN. Degenerative lumbar spinal stenosis Pain unchanged and continued weakness in legs. Scheduled with pain pain management and will try injections. Extend off work until 03/08/24. Lumbar disc herniation with radiculopathy Pain unchanged and continued weakness in legs. Scheduled with pain pain management and will try injections. Extend off work until 03/08/24. documented in this encounter [facility] Evaluation note Note Date & Type Note Facility Evaluation note No assessment information [facility] Work Phone: Evaluation note Note Date & Type Note Facility Evaluation note Diagnosis Essential hypertension, benign (CMS/HCC)- Primary Essential hypertension, benign Degenerative lumbar spinal stenosis Spinal stenosis of lumbar region Lumbar disc herniation with radiculopathy Displacement of lumbar intervertebral disc without myelopathy Leg edema Edema Chronic obstructive pulmonary disease, unspecified COPD type (CMS/HCC) documented in this encounter [facility] Summary Purpose Family History No Family History Records FoundNo Family History Records FoundNo Family History Records FoundNo Family History Records Found Advance Directives No Advanced Directives Records Found Advance Directive Response Recorded Date/ Time Advance Directives No December 10, 2023 3:29pm Chief Complaint and Reason for Visit Chief Complaint M54.50 Additional Source Comments INFORMATION SOURCE (unrecogn ized section and content) DATE CREATED AUTHOR 02/02/[address] [facility] DATE CREATED AUTHOR AUTHOR'S ORGANIZ ATION 08/30/2023 [facility] DATE CREATED AUTHOR AUTHOR'S ORGANIZ ATION 12/19/2023 [facility] DATE CREATED AUTHOR AUTHOR'S ORGANIZ ATION 12/25/2023 [facility] Care Teams (unrecognized sec tion and content) Team Status: Active Member Role Status Dates Mane Lee MD Primary Care Provider Active Team Status: Inactive Member Role Status Dates Mane Lee MD Primary Care Provider Active S tart: December 10, 2023 End: December 10, 2023 BERNICE Blanc Attending Provider Active Start: December 10, 2023 End: December 10, 2023 Gold [employer]er Relationship Specialty Start Date End Date Mane Lee MD [address] [place] [address] PCP - General Family Medicine 12/23/23 [employer]er Relationship Specialty Start Date End Date Mane Lee MD [address] [place] [address] PCP - General Family Medicine 12/23/23 Goals (unrecognized section and content) Goals may be documented in a n alternate section Reason for Visit (unrecogniz ed section and content) Reason Comments Follow-up 1 m FOR RECORDS PERTAINING TO PATIENTS WHO ARE [...] BE BASED ON THE PRIMARY CLINICAL RECORDS. [facility] provides no warranty or guarantee of the accuracy or completeness of information in this document.
--- NOTE | 2023-12-25 08:22 | P.CN_ITS ---
Consult Note: HPI Data of Consult Patient: known to practice within the last 3 years Requesting Physician: Rachael Robles NP Primary Care Provider: Mane Kearney MD Consult Narrative Reason for consult: f/u Narrative: Jazz Juares a pleasant 58 year old female presents for evaluation and management of chronic low back pain with NC. Today pain 8-9/10 with tingling and weakness to bilateral legs. MRI revealed mild central canal stenosis and broad based disc protrusion at L4-5. Patient has failed conservative measures and greater than 6 weeks of PT. Patient was evaluated by Dr Whitman office who would like her to try injection therapy before consideration of surgical intervention. Patient finding mild benefit from celebrex 200mg BID, flexeril 10mg TID, and duloxetine 60mg daily. Patient continues to have moderate to severe pain and decline in functional ability. cc:: CC: Rachael Robles NP Review of Systems ROS Status of ROS 10 or more systems reviewed and unremark able except as noted in history and below Musculoskeletal Reports: back pain and extremity pain Meds Home Medications and Allergies Home Medications Medication Instructions Recorded Confirmed Type gabapentin 300 mg capsule 300 mg PO TID #90 caps 08/25/23 Rx amlodipine 5 mg tablet 5 mg PO DAILY 08/28/23 08/28/23 History celecoxib 200 mg capsule 200 mg PO Q12H PRN pain 08/28/23 08/28/23 History cholecalciferol (vitamin D3) 50 50 mcg PO DAILY 08/28/23 08/28/23 History mcg (2,000 unit) tablet losartan 100 1 tab PO DAILY 08/28/23 08/28/23 History mg-hydrochlorothiazide 25 mg tablet methocarbamol 750 mg tablet 750 mg PO Q6H PRN spasms 08/28/23 08/28/23 History umeclidinium 62.5 mcg-vilanterol 1 inh inhalation Q24H 08/28/23 08/28/23 History 25 mcg/actuation powdr for inhalation (Anoro Ellipta) duloxetine 60 mg capsule,delayed 60 mg PO DAILY #30 caps 10/09/23 Rx release Allergies Allergy/AdvReac Type Severity Reaction Status Date / Time ciprofloxacin [From Cipro] Allergy Verified 08/28/23 10:13 Exam Constitutional Documenting provider has reviewed patient's vital signs: yes Common normals: no apparent distress, oriented x3, healthy appearing, alert and well nourished General appearance: cooperative HENMT Common normals: normocephalic, hearing grossly normal bilaterally and moist oral mucous membranes Head and scalp: normocephalic Eye Common normals: PERRL Pupil: PERRL Neck & C-Spine Common normals: full ROM General: normal visual inspection Chest Common normals: inspection of chest normal Respiratory Common normals: normal respiratory effort, no retractions and no use of accessory muscles Back & Pelvis Lumbar spine/lower back: pain with ROM Other: Lumbar-tenderness to palpation noted in the lumbar spine and paraspinal musculature. Pain is elicited with flexion, extension, and lateral rotation of the lumbar spine. Range of motion is diminished with these motions. Facet loading maneuvers are positive..? Strength-noted to be unremarkable with the exception of decreased strength rated at 4 out of 5 in bilateral quadriceps femoris, anterior tibialis. Sensory-no notable sensory deficits in the bilateral lower extremities to touch or pinprick in all dermatomal distributions with the exception to decreased sensation to the bilateral L4, 5 dermatomal distribution Extremity Common normals: normal to inspection and full ROM Neuro Common normals: oriented x3, CN's II-XII intact bilaterally, moves all extremities, no focal motor deficits, no sensory deficits noted and deep tendon reflexes 2+ bilaterally Sensorium/orientation: alert Gait (neuro): antalgic Motor exam: no movement abnormalities noted Psych Common normals: mental status grossly normal, thought process normal, cooperative, affect normal, speech normal and activity/motor behavior normal Speech: normal speech Thought process: normal thought process Results Additional Findings Additional findings: I have checked an [place]AR[place] report on this patient today and there are no aberrancies noted in the prescribing history.?? A drug screen was completed and reviewed within the last year, and if there has not been a drug screen completed we ordered one today to monitor higher risk, state monitored pain medication use. As part of providing excellent, safe, comprehensive care, the following was completed at our patient's visit: 1. A medication reconciliation and review to ensure accurate knowledge of current/active medications, including asking our patients to inform us about any [id number] medications or herbal remedies/nutritional supplements/alternative remedies. 2. A review to specifically ensure our patients have had annual screening for: elevated body mass index (BMI), tobacco use, screening for depression, and scree nikole for unhealthy alcohol use. When screening is concerning, patients are provided with education and the specific recommendation to discuss the concerning health issue and treatment options with their primary care provider. Assessment and Plan Assessment and Plan (1) Lumbar stenosis with neurogenic claudication: Assessment and Plan: The patient has had over 3 months of moderate to severe low back and bilateral leg pain with functional impairment and inadequate response to conservative care including NSAIDS (unless there are contraindication such as concurrent blood thinners), multiple oral or topical pain medications, and home exercise program/physical therapy.? Patient has completed >6 weeks of guided home exercise program and/or formal physical therapy program without relief of their symptoms.? I have reviewed the imaging of the lumbar spine and no red flags were i dentified.? The imaging reveals radiographic findings consistent with lumbar stenosis with NC The Oswestry Disability Index was completed, and the patient scored a 44%.? The patient noted the following:?? moderate pain, pain prevents him from lifting heavy weights, pain prevents her from walking more than 100 yards, standing for longer than 10 minutes, and travel less than 1 hour We discussed the risks and benefits of the procedure with the patient, and we are NOT planning on using sedation as outlined in the guidelines from Medicare unless there is a documented reason that sedation would be strongly recommended.?? ?The procedure will be completed with fluoroscopic guidance.? (2) Lumbar spondylosis: (3) Myofascial pain: Plan right L3-4 L4-5 TFESI start zonegran 50mg HS continue other medications f/u 2 weeks after ASHWINI
== END 2023-12-25 08:06 | disposition home or self-care (01) ==
PROVIDERS: PCP Family Medicine; Visit Provider Nurse Practitioner
DX: M48.062 Spinal stenosis, lumbar region with neurogenic claudication (principal); M47.816 Spondylosis without myelopathy or radiculopathy, lumbar region; M79.18 Myalgia, other site
CPT/HCPCS: G0463

== ENCOUNTER 2023-12-29 09:58 | Day surgery (SDC) | payer BC, SELFPAY ==
--- OUTSIDE RECORDS SUMMARY | 2023-12-29 10:03 | XMS_ITS | CCD ---
Author Name Unknown Address [address] [place] [address] Organization [facility] Care Team Providers Care Water Aerobics Instructor Name Role Phone JESUS, DR MANE Avina [...] DR MANE Avina Attending Unavailable JESUS, DR MANE Avina Primary Care Unavailable GRAHAM, DR NIA Uriostegui Consulting Unavailable JESUS, DR MANE Avina Consulting Unavailable Melva BACK, Corine Puentes Attending Unavailable MD Mane Lee Primary Care Provider BERNICE Shipman Attending Provider Lakisha Shipman Attending Unavailable Lakisha Shipman Admitting Unavailable Mane Lee Primary Care Unavailable Mane Lee MD Primary Care Provider MANE LEE Attending Unavailable MANE LEE Attending Unavailable JESUS, MANE Attending Unavailable Allergies Allergy Classification Reported Allergen(s) Allergy Type Date of Onset Reaction(s) Facility (1 source) Ciprofloxacin Drug Allergy 10-19-2014 [facility] Repository (1 source) Ciprofloxacin Drug Allergy 12-10-2023 [facility] Repository (3 sources) Ciprofloxacin Drug Allergy 10-31-2023 [facility] Medications Current Medications Medication Drug Class(es) Dates Sig (Normalized) Sig (Original) [id number] 200 actuat albuterol 0.09 mg/actuat metered dose [...] 5 MG tablet Indications: Essential hypertension, benign ([facility]/HCC) Take 1 tablet (5 mg) by [...] 10-31-2023 Chronic Other aftercare (1 source) Other m[facility] (current) drug therapy; 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: [OTH DETENTION CURRENT DRUG THERAPY] Onset: 11-20-2022 Episodic Other aftercare (1 source) senior care (current) use of opiate analgesic; 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: [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 ADVISOR CURRNT USE OPIATE ANALGES] Onset: 11-20-2022 Episodic [...] 12-10-2023 XR lumbar spine 6V w bending [facility] Main [address] [address] XRay Report Signed Patient: Lawrence Juares MR#: [id number] 8 : 1965 Acct:[id number] Age/Sex: 58 / F ADM Date: 12/10/23 Loc: XD Room: Type: [facility] Attending Dr: Lakisha AMBROSIOC Copies to: BERNICE [...] Smith Jr., HeydiOMartell12/10/2023 3:58 PM Dictation Location: [place] [address] Transcribed By: [facility] 12/10/23 1558 Dictated By: Owen Smith Jr, DO 12/10/23 1557 Signed By: 12/10/23 1558 Normal [facility] HEMOGLOBINon 01-29-2023 Hemoglobin (Bld) [Mass/Vol] 14.6 g/dL Normal 12.0-16.0 [facility] Comment on above: Performed By: #### H GB #### [facility] [address] [place] [address] Dr. Evangelist Chicas MG MAMM SCREEN 3D MANJIT CADon 01-29-2023 MG MAMM SCREEN 3D MANJIT CAD Patient: LAWRENCE JUARES Exam Date: 01/29/2023 : 1965 Gender:F Ordering : DR MANE LEE . Admission #: [id number] Family : Order #: [id number] CLICK HERE TO VIEW EXAM RADIOLOGY REPORT [...] rectal cancer at age 73. LOCATION: [facility] BREAST COMPOSITION: Scattered areas fibroglandular density. [...] MD on 01/29/2023 at 09:29 Normal [facility] CBC AUTO DIFFon 11-14-2022 BASO # 0.0 103/ul Normal 0.0-0.1 [facility] Comment on above: Performed By: #### B MP #### [facility] [address] [place] [address] Dr. Evangelist Chicas Basophils/100 WBC (Bld) 0.1 % Critically low 0.2-2.0 [facility] Comment on above: Performed By: #### B MP #### [facility] [address] [place] [address] Dr. Evangelist Chicas EO # 0.0 103/ul Normal 0.0-0.7 [facility] Comment on above: Performed By: #### B MP #### [facility] [address] [place] [address] Dr. Evangelist Chicas Eosinophils/100 WBC (Bld) 0.1 % Critically low 0.9-7.0 [facility] Comment on above: Performed By: #### B MP #### [facility] [address] [place] [address] Dr. Evangelist Chicas Erythrocyte distribution width (RBC) [Ratio] 13.1 % Normal 11.0-15.0 [facility] Comment on above: Performed By: #### B MP #### [facility] [address] [place] [address] Dr. Evangelist Chicas Hematocrit (Bld) [Volume fraction] 41.4 % Normal 36.0-48.0 [facility] Comment on above: Performed By: #### B MP #### [facility] [address] [place] [address] Dr. Evangelist Chicas Hemoglobin (Bld) [Mass/Vol] 13.0 g/dL Normal 12.0-16.0 [facility] Comment on above: Performed By: #### B MP #### [facility] [address] [place] [address] Dr. Evangelist Chicas IG # 0.03 10e3/ul Normal 0.00-0.03 [facility] Comment on above: Performed By: #### B MP #### [facility] [address] [place] [address] Dr. Evangelist Chicas IG % 0.4 % Normal 0.0-0.5 [facility] Comment on above: Performed By: #### B MP #### [facility] [address] [place] [address] Dr. Evangelist Chicas LYMPH # 0.4 103/ul Critically low 1.2-3.8 [facility] Comment on above: Performed By: #### B MP #### [facility] [address] [place] [address] Dr. Evangelist Chicas Lymphocytes/100 WBC (Bld) 4.7 % Critically low 20.5-60.0 [facility] Comment on above: Performed By: #### B MP #### [facility] [address] [place] [address] Dr. Evangelist Chicas MANUAL DIFF REQ NO Normal [facility] Comment on above: Performed By: #### B MP #### [facility] [address] [place] [address] Dr. Evangelist Chicas MCH (RBC) [Entitic mass] 29.1 pg Normal 26.7-34.0 [facility] Comment on above: Performed By: #### B MP #### [facility] [address] [place] [address] Dr. Evangelist Chicas MCHC (RBC) [Mass/Vol] 31.4 g/dL Normal 29.9-35.2 [facility] Comment on above: Performed By: #### B MP #### [facility] [address] [place] [address] Dr. Evangelist Chicas MCV (RBC) [Entitic vol] 92.8 fL Normal 81.0-99.0 [facility] Comment on above: Performed By: #### B MP #### [facility] [address] [place] [address] Dr. Evangelist Chicas MONO # 0.1 103/ul Critically low 0.3-0.8 [facility] Comment on above: Performed By: #### B MP #### [facility] [address] [place] [address] Dr. Evangelist Chicas Monocytes/100 WBC (Bld) 1.8 % Normal 1.7-12.0 [facility] Comment on above: Performed By: #### B MP #### [facility] [address] [place] [address] Dr. Evangelist Chicas NEUT # 6.8 103/ul Critically high 1.4-6.5 [facility] Comment on above: Performed By: #### B MP #### [facility] [address] [place] [address] Dr. Evangelist Chicas Neutrophils/100 WBC (Bld) 92.9 % Critically high 43.0-75.0 [facility] Comment on above: Performed By: #### B MP #### [facility] [address] [place] [address] Dr. Evangelist Chicas Platelet mean volume (Bld) [Entitic vol] 11.3 fL Normal 9.5-13.5 [facility] Comment on above: Performed By: #### B MP #### [facility] [address] [place] [address] Dr. Evangelist Chicas PLT 109 103/ul Critically low 150-450 [facility] Comment on above: Performed By: #### B MP #### [facility] [address] [place] [address] Dr. Evangelist Chicas RBC 4.46 106/ul Normal 4.20-5.40 [facility] Comment on above: Performed By: #### B MP #### [facility] [address] [place] [address] Dr. Evangelist Chicas WBC 7.4 103/ul Normal 4.0-11.0 [facility] Comment on above: Performed By: #### B MP #### [facility] [address] [place] [address] Dr. Evangelist Chicas PROF CHEM 8 (BAS METB)on Anion gap [Moles/Vol] 11.8 mmol/L Normal [facility] Comment on above: Performed By: #### B MP #### [facility] [address] [place] [address] Dr. Evangelist Chicas Calcium [Mass/Vol] 9.3 mg/dL Normal 8.5-10.1 [facility] Comment on above: Performed By: #### B MP #### [facility] [address] [place] [address] Dr. Evangelist Chicas Chloride [Moles/Vol] 99 mmol/L Normal 98-107 [facility] Comment on above: Performed By: #### B MP #### [facility] [address] [place] [address] Dr. Evangelist Chicas CO2 [Moles/Vol] 31.6 mmol/L Normal 21.0-32.0 [facility] Comment on above: Performed By: #### B MP #### [facility] [address] [place] [address] Dr. Evangelist Chicas Creatinine [Mass/Vol] 0.75 mg/dL Normal 0.55-1.02 [facility] Comment on above: Performed By: #### B MP #### [facility] [address] [place] [address] [address] Evangelist Chicas EGFR-AF NICARAGUAN >60 Normal >=60 [facility] Comment on above: Performed By: #### B MP #### [facility] [address] [place] [address] [address] Evangelist Chicas EGFR-NON AF NICARAGUAN >60 Normal >=60 [facility] Comment on above: Performed By: #### B MP #### [facility] [address] [place] [address] [address] Evangelist Chicas Glucose [Mass/Vol] 162 mg/dL Critically high 74-106 [facility] Comment on above: Performed By: #### B MP #### [facility] [address] [place] [address] Dr. Evangelist Chicas Potassium [Moles/Vol] 4.4 mmol/L Normal 3.5-5.1 [facility] Comment on above: Performed By: #### B MP #### [facility] [address] [place] [address] [address] Evangelist Chicas Sodium [Moles/Vol] 138 mmol/L Normal 136-145 [facility] Comment on above: Performed By: #### B MP #### [facility] [address] [place] [address] Dr. Evangelist Chicas Urea nitrogen [Mass/Vol] 32.0 mg/dL Critically high 7.0-18.0 [facility] Comment on above: Performed By: #### B MP #### [facility] [address] [place] [address] Dr. Evangelist Chicas Urea nitrogen/Creatinin e [Mass ratio] 42.7 mg/mg Normal [facility] Comment on above: Performed By: #### B MP #### [facility] [address] [place] [address] Dr. Evangelist Chicas CBC AUTO DIFFon 11-13-2022 BASO # 0.0 103/ul Normal 0.0-0.1 [facility] Comment on above: Performed By: #### C BC #### [facility] [address] [place] [address] [address] Evangelist Chicas Basophils/100 WBC (Bld) 0.1 % Critically low 0.2-2.0 [facility] Comment on above: Performed By: #### C BC #### [facility] [address] [place] [address] [address] Evangelist Chicas EO # 0.0 103/ul Normal 0.0-0.7 [facility] Comment on above: Performed By: #### C BC #### [facility] [address] [place] [address] [address] Evangelist Chicas Eosinophils/100 WBC (Bld) 0.0 % Critically low 0.9-7.0 [facility] Comment on above: Performed By: #### C BC #### [facility] [address] [place] [address] Dr. Evangelist Chicas Erythrocyte distribution width (RBC) [Ratio] 12.9 % Normal 11.0-15.0 [facility] Comment on above: Performed By: #### C BC #### [facility] [address] [place] [address] [address] Evangelist Chicas Hematocrit (Bld) [Volume fraction] 39.0 % Normal 36.0-48.0 [facility] Comment on above: Performed By: #### C BC #### [facility] [address] [place] [address] [address] Evangelist Chicas Hemoglobin (Bld) [Mass/Vol] 12.3 g/dL Normal 12.0-16.0 [facility] Comment on above: Performed By: #### C BC #### [facility] [address] [place] [address] [address] Evangelist Chicas IG # 0.04 10e3/ul Critically high 0.00-0.03 [facility] Comment on above: Performed By: #### C BC #### [facility] [address] [place] [address] [address] Evangelist Chicas IG % 0.4 % Normal 0.0-0.5 [facility] Comment on above: Performed By: #### C BC #### [facility] [address] [place] [address] [address] Evangelist Chicas LYMPH # 0.5 103/ul Critically low 1.2-3.8 [facility] Comment on above: Performed By: #### C BC #### [facility] [address] [place] [address] Dr. Evangelist Chicas Lymphocytes/100 WBC (Bld) 4.5 % Critically low 20.5-60.0 [facility] Comment on above: Performed By: #### C BC #### [facility] [address] [place] [address] Dr. Evangelist Chicas MANUAL DIFF REQ NO Normal [facility] Comment on above: Performed By: #### C BC #### [facility] [address] [place] [address] Dr. Evangelist Chicas MCH (RBC) [Entitic mass] 29.7 pg Normal 26.7-34.0 [facility] Comment on above: Performed By: #### C BC #### [facility] [address] [place] [address] Dr. Evangelist Chicas MCHC (RBC) [Mass/Vol] 31.5 g/dL Normal 29.9-35.2 [facility] Comment on above: Performed By: #### C BC #### [facility] [address] [place] [address] Dr. Evangelist Chicas MCV (RBC) [Entitic vol] 94.2 fL Normal 81.0-99.0 [facility] Comment on above: Performed By: #### C BC #### [facility] [address] [place] [address] Dr. Evangelist Chicas MONO # 0.2 103/ul Critically low 0.3-0.8 [facility] Comment on above: Performed By: #### C BC #### [facility] [address] [place] [address] Dr. Evangelist Chicas Monocytes/100 WBC (Bld) 1.5 % Critically low 1.7-12.0 [facility] Comment on above: Performed By: #### C BC #### [facility] [address] [place] [address] Dr. Evangelist Chicas NEUT # 10.5 103/ul Critically high 1.4-6.5 [facility] Comment on above: Performed By: #### C BC #### [facility] [address] [place] [address] Dr. Evangelist Chicas Neutrophils/100 WBC (Bld) 93.5 % Critically high 43.0-75.0 [facility] Comment on above: Performed By: #### C BC #### [facility] [address] [place] [address] Dr. Evangelist Chicas Platelet mean volume (Bld) [Entitic vol] 10.4 fL Normal 9.5-13.5 [facility] Comment on above: Performed By: #### C BC #### [facility] [address] [place] [address] Dr. Evangelist Chicas PLT 169 103/ul Normal 150-450 [facility] Comment on above: Performed By: #### C BC #### [facility] [address] [place] [address] Dr. Evangelist Chicas RBC 4.14 106/ul Critically low 4.20-5.40 [facility] Comment on above: Performed By: #### C BC #### [facility] [address] [place] [address] Dr. Evangelist Chicas WBC 11.2 103/ul Critically high 4.0-11.0 [facility] Comment on above: Performed By: #### C BC #### [facility] [address] [place] [address] Dr. Evangelist Chicas CULTURE SPUTUMon 11-13-2022 CULTURE SPUTUM Culture Observations : NORMAL RESPIRATORY SHAINA. Normal [facility] Comment on above: Performed By: #### B MP #### [facility] [address] [place] [address] Dr. Evangelist Chicas PROF CHEM 8 (BAS METB)on Anion gap [Moles/Vol] 9.2 mmol/L Normal [facility] Comment on above: Performed By: #### D DIM #### [facility] [address] [place] [address] [address] Evangelist Chicas Calcium [Mass/Vol] 9.1 mg/dL Normal 8.5-10.1 [facility] Comment on above: Performed By: #### D DIM #### [facility] [address] [place] [address] [address] Evangelist Chicas Chloride [Moles/Vol] 100 mmol/L Normal 98-107 [facility] Comment on above: Performed By: #### D DIM #### [facility] [address] [place] [address] [address] Evangelist Chicas CO2 [Moles/Vol] 33.8 mmol/L Critically high 21.0-32.0 [facility] Comment on above: Performed By: #### D DIM #### [facility] [address] [place] [address] Dr. Evangelist Chicas Creatinine [Mass/Vol] 0.85 mg/dL Normal 0.55-1.02 [facility] Comment on above: Performed By: #### D DIM #### [facility] [address] [place] [address] [address] Evangelist Chicas EGFR-AF NICARAGUAN >60 Normal >=60 [facility] Comment on above: Performed By: #### D DIM #### [facility] [address] [place] [address] Dr. Evangelist Chicas EGFR-NON AF NICARAGUAN >60 Normal >=60 [facility] Comment on above: Performed By: #### D DIM #### [facility] [address] [address] [address] Evangelist Chicas Glucose [Mass/Vol] 151 mg/dL Critically high 74-106 [facility] Comment on above: Performed By: #### D DIM #### [facility] [address] [address] [address] Evangelist Chicas Potassium [Moles/Vol] 4.0 mmol/L Normal 3.5-5.1 [facility] Comment on above: Performed By: #### D DIM #### [facility] [address] [address] [address] Evangelist Chicas Sodium [Moles/Vol] 139 mmol/L Normal 136-145 [facility] Comment on above: Performed By: #### D DIM #### [facility] [address] [place] [address] Dr. Evangelist Chicas Urea nitrogen [Mass/Vol] 29.0 mg/dL Critically high 7.0-18.0 [facility] Comment on above: Performed By: #### D DIM #### [facility] [address] [place] [address] Dr. Evangelist Chicas Urea nitrogen/Creatinin e [Mass ratio] 34.1 mg/mg Normal [facility] Comment on above: Performed By: #### D DIM #### [facility] [address] [place] [address] Dr. Evangelist Chicas CBC AUTO DIFFon 11-12-2022 BASO # 0.0 103/ul Normal 0.0-0.1 [facility] Comment on above: Performed By: #### C BC #### [facility] [address] [place] [address] Dr. Evangelist Chicas Basophils/100 WBC (Bld) 0.1 % Critically low 0.2-2.0 [facility] Comment on above: Performed By: #### C BC #### [facility] [address] [place] [address] Dr. Evangelist Chicas EO # 0.0 103/ul Normal 0.0-0.7 [facility] Comment on above: Performed By: #### C BC #### [facility] [address] [place] [address] Dr. Evangelist Chicas Eosinophils/100 WBC (Bld) 0.0 % Critically low 0.9-7.0 [facility] Comment on above: Performed By: #### C BC #### [facility] [address] [place] [address] Dr. Evangelist Chicas Erythrocyte distribution width (RBC) [Ratio] 12.8 % Normal 11.0-15.0 [facility] Comment on above: Performed By: #### C BC #### [facility] [address] [place] [address] Dr. Evangelist Chicas Hematocrit (Bld) [Volume fraction] 41.5 % Normal 36.0-48.0 [facility] Comment on above: Performed By: #### C BC #### [facility] [address] [place] [address] Dr. Evangelist Chicas Hemoglobin (Bld) [Mass/Vol] 13.0 g/dL Normal 12.0-16.0 [facility] Comment on above: Performed By: #### C BC #### [facility] [address] [place] [address] Dr. Evangelist Chicas IG # 0.04 10e3/ul Critically high 0.00-0.03 [facility] Comment on above: Performed By: #### C BC #### [facility] [address] [place] [address] Dr. Evangelist Chicas IG % 0.3 % Normal 0.0-0.5 [facility] Comment on above: Performed By: #### C BC #### [facility] [address] [place] [address] Dr. Eavngelist Chicas LYMPH # 0.5 103/ul Critically low 1.2-3.8 [facility] Comment on above: Performed By: #### C BC #### [facility] [address] [place] [address] Dr. Evangelist Chicas Lymphocytes/100 WBC (Bld) 3.7 % Critically low 20.5-60.0 [facility] Comment on above: Performed By: #### C BC #### [facility] [address] [place] [address] Dr. Evangelist Chicas MANUAL DIFF REQ NO Normal [facility] Comment on above: Performed By: #### C BC #### [facility] [address] [place] [address] Dr. Evangelist Chicas MCH (RBC) [Entitic mass] 29.5 pg Normal 26.7-34.0 [facility] Comment on above: Performed By: #### C BC #### [facility] [address] [place] [address] Dr. Evangelist Chicas MCHC (RBC) [Mass/Vol] 31.3 g/dL Normal 29.9-35.2 [facility] Comment on above: Performed By: #### C BC #### [facility] [address] [address] [address] Evangelist Chicas MCV (RBC) [Entitic vol] 94.3 fL Normal 81.0-99.0 [facility] Comment on above: Performed By: #### C BC #### [facility] [address] [address] [address] Evangelist Chicas MONO # 0.2 103/ul Critically low 0.3-0.8 [facility] Comment on above: Performed By: #### C BC #### [facility] [address] [place] [address] Dr. Evangelist Chicas Monocytes/100 WBC (Bld) 1.3 % Critically low 1.7-12.0 [facility] Comment on above: Performed By: #### C BC #### [facility] [address] [place] [address] Dr. Evangelist Chicas NEUT # 12.4 103/ul Critically high 1.4-6.5 [facility] Comment on above: Performed By: #### C BC #### [facility] [address] [place] [address] Dr. Evangelist Chicas Neutrophils/100 WBC (Bld) 94.6 % Critically high 43.0-75.0 [facility] Comment on above: Performed By: #### C BC #### [facility] [address] [place] [address] Dr. Evangelist Chicas Platelet mean volume (Bld) [Entitic vol] 9.9 fL Normal 9.5-13.5 [facility] Comment on above: Performed By: #### C BC #### [facility] [address] [place] [address] Dr. vEangelist Chicas PLT 189 103/ul Normal 150-450 [facility] Comment on above: Performed By: #### C BC #### [facility] [address] [place] [address] Dr. Evangelist Chicas RBC 4.40 106/ul Normal 4.20-5.40 [facility] Comment on above: Performed By: #### C BC #### [facility] [address] [place], [place] [address] Dr. Evangelist Chicas WBC 13.1 103/ul Critically high 4.0-11.0 [facility] Comment on above: Performed By: #### C BC #### [facility] [address] [place], [place] [address] Dr. Evangelist Chicas ECHOCARDIO M/2D COMPLETEon 0 11-12-2022 ECHOCARDIO M/2D COMPLETE Patient: LAWRENCE JUARES Exam Date: 11/12/2022 : 1965 Gender:F Ordering : DR MANE LEE . Admission #: [id number] Family : DR VAMSHI MORGAN . Order #: [id number] CLICK HERE TO VIEW EXAM ECHOCARDIOGRAM REPORT [...] Goncalves M.D. on 11/12/2022 at 13:56 Normal [facility] PROF CHEM 8 (BAS METB)on Anion gap [Moles/Vol] 10.2 mmol/L Normal [facility] Comment on above: Performed By: #### B MP #### [facility] [address] [address] [address] Evangelist Chicas Calcium [Mass/Vol] 9.2 mg/dL Normal 8.5-10.1 [facility] Comment on above: Performed By: #### B MP #### [facility] [address] [address] [address] Evangelist Chicas Chloride [Moles/Vol] 99 mmol/L Normal 98-107 [facility] Comment on above: Performed By: #### B MP #### [facility] [address] [address] [address] Evangelist Chicas CO2 [Moles/Vol] 31.5 mmol/L Normal 21.0-32.0 [facility] Comment on above: Performed By: #### B MP #### [facility] [address] [address] [address] Evangelist Chicas Creatinine [Mass/Vol] 0.87 mg/dL Normal 0.55-1.02 [facility] Comment on above: Performed By: #### B MP #### [facility] [address] [address] [address] Evangelist Chicas EGFR-AF NICARAGUAN >60 Normal >=60 [facility] Comment on above: Performed By: #### B MP #### [facility] [address] [address] [address] Evangelist Chicas EGFR-NON AF NICARAGUAN >60 Normal >=60 [facility] Comment on above: Performed By: #### B MP #### [facility] [address] [address] [address] Evangelist Chicas Glucose [Mass/Vol] 168 mg/dL Critically high 74-106 [facility] Comment on above: Performed By: #### B MP #### [facility] [address] [place] [address] Dr. Evangelist Chicas Potassium [Moles/Vol] 3.7 mmol/L Normal 3.5-5.1 [facility] Comment on above: Performed By: #### B MP #### [facility] [address] [place] [address] Dr. Evangelist Chicas Sodium [Moles/Vol] 137 mmol/L Normal 136-145 [facility] Comment on above: Performed By: #### B MP #### [facility] [address] [place] [address] Dr. Evangelist Chicas Urea nitrogen [Mass/Vol] 28.0 mg/dL Critically high 7.0-18.0 [facility] Comment on above: Performed By: #### B MP #### [facility] [address] [place] [address] Dr. Evangelist Chicas Urea nitrogen/Creatinin e [Mass ratio] 32.2 mg/mg Normal [facility] Comment on above: Performed By: #### B MP #### [facility] [address] [place] [address] Dr. Evangelist Chicas CBC AUTO DIFFon 11-11-2022 BASO # 0.0 103/ul Normal 0.0-0.1 [facility] Comment on above: Performed By: #### C BC #### [facility] [address] [place] [address] Dr. Evangelist Chicas Basophils/100 WBC (Bld) 0.2 % Normal 0.2-2.0 [facility] Comment on above: Performed By: #### C BC #### [facility] [address] [place] [address] Dr. Evangelist Chicas EO # 0.0 103/ul Normal 0.0-0.7 [facility] Comment on above: Performed By: #### C BC #### [facility] [address] [place] [address] Dr. Evangelist Chicas Eosinophils/100 WBC (Bld) 0.0 % Critically low 0.9-7.0 [facility] Comment on above: Performed By: #### C BC #### [facility] [address] [place] [address] Dr. Evangelist Chicas Erythrocyte distribution width (RBC) [Ratio] 12.7 % Normal 11.0-15.0 [facility] Comment on above: Performed By: #### C BC #### [facility] [address] [place] [address] Dr. Evangelist Chicas Hematocrit (Bld) [Volume fraction] 41.7 % Normal 36.0-48.0 [facility] Comment on above: Performed By: #### C BC #### [facility] [address] [place] [address] Dr. Evangelist Chicas Hemoglobin (Bld) [Mass/Vol] 13.0 g/dL Normal 12.0-16.0 [facility] Comment on above: Performed By: #### C BC #### [facility] [address] [place] [address] Dr. Evangelist Chicas IG # 0.03 10e3/ul Normal 0.00-0.03 [facility] Comment on above: Performed By: #### C BC #### [facility] [address] [place] [address] Dr. Evangelist Chiacs IG % 0.5 % Normal 0.0-0.5 [facility] Comment on above: Performed By: #### C BC #### [facility] [address] [place] [address] Dr. Evangelist Chicas LYMPH # 0.4 103/ul Critically low 1.2-3.8 [facility] Comment on above: Performed By: #### C BC #### [facility] [address] [place] [address] Dr. Evangelist Chicas Lymphocytes/100 WBC (Bld) 5.8 % Critically low 20.5-60.0 [facility] Comment on above: Performed By: #### C BC #### [facility] [address] [place] [address] Dr. Evangelist Chicas MANUAL DIFF REQ NO Normal [facility] Comment on above: Performed By: #### C BC #### [facility] [address] [place] [address] Dr. Evangelist Chicas MCH (RBC) [Entitic mass] 29.3 pg Normal 26.7-34.0 [facility] Comment on above: Performed By: #### C BC #### [facility] [address] [place] [address] Dr. Evangelist Chicas MCHC (RBC) [Mass/Vol] 31.2 g/dL Normal 29.9-35.2 [facility] Comment on above: Performed By: #### C BC #### [facility] [address] [place] [address] Dr. Evangelist Chicas MCV (RBC) [Entitic vol] 93.9 fL Normal 81.0-99.0 [facility] Comment on above: Performed By: #### C BC #### [facility] [address] [place] [address] Dr. Evangelist Chicas MONO # 0.0 103/ul Critically low 0.3-0.8 [facility] Comment on above: Performed By: #### C BC #### [facility] [address] [place] [address] Dr. Evangelist Chicas Monocytes/100 WBC (Bld) 0.6 % Critically low 1.7-12.0 [facility] Comment on above: Performed By: #### C BC #### [facility] [address] [place] [address] Dr. Evangelist Chicas NEUT # 6.0 103/ul Normal 1.4-6.5 [facility] Comment on above: Performed By: #### C BC #### [facility] [address] [place] [address] Dr. Evangelist Chicas Neutrophils/100 WBC (Bld) 92.9 % Critically high 43.0-75.0 [facility] Comment on above: Performed By: #### C BC #### [facility] [address] [place] [address] Dr. Evangelist Chicas Platelet mean volume (Bld) [Entitic vol] 10.8 fL Normal 9.5-13.5 [facility] Comment on above: Performed By: #### C BC #### [facility] [address] [place] [address] Dr. Evangelist Chicas PLT 141 103/ul Critically low 150-450 [facility] Comment on above: Performed By: #### C BC #### [facility] [address] [place] [address] Dr. Evangelist Chicas RBC 4.44 106/ul Normal 4.20-5.40 [facility] Comment on above: Performed By: #### C BC #### [facility] [address] [address] [address] Evangelist Chicas WBC 6.4 103/ul Normal 4.0-11.0 [facility] Comment on above: Performed By: #### C BC #### [facility] [address] [place] [address] Dr. Evangelist Chicas PROF CHEM 8 (BAS METB)on Anion gap [Moles/Vol] 7.5 mmol/L Normal [facility] Comment on above: Performed By: #### B MP #### [facility] [address] [place] [address] Dr. Evangelist Chicas Calcium [Mass/Vol] 8.9 mg/dL Normal 8.5-10.1 [facility] Comment on above: Performed By: #### B MP #### [facility] [address] [place] [address] Dr. Evangelist Chicas Chloride [Moles/Vol] 100 mmol/L Normal 98-107 [facility] Comment on above: Performed By: #### B MP #### [facility] [address] [place] [address] Dr. Evangelist Chicas CO2 [Moles/Vol] 33.9 mmol/L Critically high 21.0-32.0 [facility] Comment on above: Performed By: #### B MP #### [facility] [address] [place] [address] Dr. Evangelist Chicas Creatinine [Mass/Vol] 0.65 mg/dL Normal 0.55-1.02 [facility] Comment on above: Performed By: #### B MP #### [facility] [address] [place], [place] [id number] Dr. Evangelist Chicas EGFR-AF NICARAGUAN >60 Normal >=60 [facility] Comment on above: Performed By: #### B MP #### [facility] [address] [place] [address] Dr. Evangelist Chicas EGFR-NON AF NICARAGUAN >60 Normal >=60 [facility] Comment on above: Performed By: #### B MP #### [facility] [address] [place] [address] Dr. Evangelist Chicas Glucose [Mass/Vol] 152 mg/dL Critically high 74-106 [facility] Comment on above: Performed By: #### B MP #### [facility] [address] [place] [address] Dr. Evangelist Chicas Potassium [Moles/Vol] 4.4 mmol/L Normal 3.5-5.1 [facility] Comment on above: Performed By: #### B MP #### [facility] [address] [place] [address] Dr. Evangelist Chicas Sodium [Moles/Vol] 137 mmol/L Normal 136-145 [facility] Comment on above: Performed By: #### B MP #### [facility] [address] [place] [address] Dr. Evangelist Chicas Urea nitrogen [Mass/Vol] 16.0 mg/dL Normal 7.0-18.0 [facility] Comment on above: Performed By: #### B MP #### [facility] [address] [place] [address] Dr. Evangelist Chicas Urea nitrogen/Creatinin e [Mass ratio] 24.6 mg/mg Normal [facility] Comment on above: Performed By: #### B MP #### [facility] [address] [place] [address] Dr. Evangelist Chicas BNPon 11-10-2022 Natriuretic peptide B (Bld) [Mass/Vol] 330.0 pg/mL Normal <=900.0 [facility] Comment on above: Performed By: #### B MP #### [facility] [address] [place] [address] Dr. Evangelist Chicas CARDIAC LIS ADMITon 023 CK [Catalytic activity/Vol] 40 U/L Normal 26-192 [facility] Comment on above: Performed By: #### D DIM #### [facility] [address] [place] [address] Dr. Evangelist Chicas CK.MB [Mass/Vol] 1.06 ng/mL Normal <=3.60 [facility] Comment on above: Performed By: #### D DIM #### [facility] [address] [place] [address] Dr. Evangelist Chicas HSTROP 21.6 pg/mL Normal 4.0-51.3 [facility] Comment on above: Result Comment: CUT- OFF POINTS HAVE BEEN ESTABLISHED BASED ON THE FOURTH UNIVERSAL DEFINITIONS OF MYOCARDIAL INFARCTION. THE UPPER REFERENCE LIMIT (URL) OF TROPONIN, DEFINED THE 99TH PERCENTILE OF cTnI DISTRIBUTION IN A REFERENCE POPULATION, HAS BEEN CONFIRMED THE DECISION THRESHOLD FOR [place] DIAGNOSIS. Performed By: #### D DIM #### [facility] [address] [place] [address] Dr. Evangelist Chicas VANNA 41 ng/mL Normal 9-82 [facility] Comment on above: Performed By: #### D DIM #### [facility] [address] [place] [address] Dr. Evangelist Chicas CBC AUTO DIFFon 11-10-2022 BASO # 0.1 103/ul Normal 0.0-0.1 [facility] Comment on above: Performed By: #### B MP #### [facility] [address] [place] [address] Dr. Evangelist Chicas Basophils/100 WBC (Bld) 0.7 % Normal 0.2-2.0 [facility] Comment on above: Performed By: #### B MP #### [facility] [address] [place] [address] Dr. Evangelist Chicas EO # 0.1 103/ul Normal 0.0-0.7 [facility] Comment on above: Performed By: #### B MP #### [facility] [address] [place] [address] Dr. Evangelist Chicas Eosinophils/100 WBC (Bld) 1.1 % Normal 0.9-7.0 [facility] Comment on above: Performed By: #### B MP #### [facility] [address] [place] [address] Dr. Evangelist Chicas Erythrocyte distribution width (RBC) [Ratio] 12.8 % Normal 11.0-15.0 [facility] Comment on above: Performed By: #### B MP #### [facility] [address] [place] [address] Dr. Evangelist Chicas Hematocrit (Bld) [Volume fraction] 41.1 % Normal 36.0-48.0 [facility] Comment on above: Performed By: #### B MP #### [facility] [address] [place] [address] Dr. Evangelist Chicas Hemoglobin (Bld) [Mass/Vol] 13.2 g/dL Normal 12.0-16.0 [facility] Comment on above: Performed By: #### B MP #### [facility] [address] [place] [address] Dr. Evangelist Chicas IG # 0.02 10e3/ul Normal 0.00-0.03 [facility] Comment on above: Performed By: #### B MP #### [facility] [address] [place] [address] Dr. Evangelist Chicas IG % 0.3 % Normal 0.0-0.5 [facility] Comment on above: Performed By: #### B MP #### [facility] [address] [place] [address] Dr. Evangelist Chicas LYMPH # 0.7 103/ul Critically low 1.2-3.8 [facility] Comment on above: Performed By: #### B MP #### [facility] [address] [place] [address] Dr. Evangelist Chicas Lymphocytes/100 WBC (Bld) 9.5 % Critically low 20.5-60.0 [facility] Comment on above: Performed By: #### B MP #### [facility] [address] [place] [address] Dr. Evangelist Chicas MANUAL DIFF REQ NO Normal [facility] Comment on above: Performed By: #### B MP #### [facility] [address] [address] [address] Evangelist Chicas MCH (RBC) [Entitic mass] 29.6 pg Normal 26.7-34.0 [facility] Comment on above: Performed By: #### B MP #### [facility] [address] [address] [address] Evangelist Chicas MCHC (RBC) [Mass/Vol] 32.1 g/dL Normal 29.9-35.2 [facility] Comment on above: Performed By: #### B MP #### [facility] [address] [address] [address] Evangelist Chicas MCV (RBC) [Entitic vol] 92.2 fL Normal 81.0-99.0 [facility] Comment on above: Performed By: #### B MP #### [facility] [address] [place] [address] Dr. Evangelist Chicas MONO # 0.6 103/ul Normal 0.3-0.8 [facility] Comment on above: Performed By: #### B MP #### [facility] [address] [place] [address] Dr. Evangelist Chicas Monocytes/100 WBC (Bld) 8.1 % Normal 1.7-12.0 [facility] Comment on above: Performed By: #### B MP #### [facility] [address] [address] [address] Evangelist Chicas NEUT # 6.1 103/ul Normal 1.4-6.5 [facility] Comment on above: Performed By: #### B MP #### [facility] [address] [address] [address] Evangelist Chicas Neutrophils/100 WBC (Bld) 80.3 % Critically high 43.0-75.0 [facility] Comment on above: Performed By: #### B MP #### [facility] [address] [place] [address] Dr. Evangelist Chicas Platelet mean volume (Bld) [Entitic vol] 9.8 fL Normal 9.5-13.5 [facility] Comment on above: Performed By: #### B MP #### [facility] [address] [place], [place] [address] Dr. Evangelist Chicas PLT 180 103/ul Normal 150-450 [facility] Comment on above: Performed By: #### B MP #### [facility] [address] [place], [place] [address] Dr. Evangelist Chicas RBC 4.46 106/ul Normal 4.20-5.40 [facility] Comment on above: Performed By: #### B MP #### [facility] [address] [place], [place] [address] Dr. Evangeilst Chicas WBC 7.6 103/ul Normal 4.0-11.0 [facility] Comment on above: Performed By: #### B MP #### [facility] [address] [place], [place] [address] Dr. Evangelist Chicas CTA CHEST WO W [...] DELFabrice ENRIQUE Date: 2022-11-10 17:30 Normal [facility] Covid-19 PCR (CVDTB)on SARS-CoV-2 (COVID-19) RNA SHENG+probe Ql (Unsp spec) Not detected Normal NOT DETECTED [facility] Comment on above: Result Comment: When [...] for this test is supported by the [place] of Health and Human Service's declaration that [...] used). Performed By: #### B MP #### [facility] [address] [place] [address] Dr. Evangelist Chicas D-DIMERon 11-10-2022 D-DIMER 0.63 mg/L FEU Critically high <=0.59 [facility] Comment on above: Performed By: #### D DIM #### [facility] [address] [place] [address] Dr. Evangelist Chicas D-DIMER COMMENTS SEE BELOW Normal [facility] Comment on above: Result Comment: Incr [...] hospitalization. Performed By: #### D DIM #### [facility] [address] [address] [address] Evangelist Chicas ER URINE PROFILEon 3 Bilirubin Ql (U) Negative Normal NEGATIVE [facility] Comment on above: Performed By: #### U MICRO, ERUR #### [facility] [address] [place] [address] Dr. Evangelist Chicas Clarity (U) CLEAR Normal CLEAR [facility] Comment on above: Performed By: #### U MICRO, ERUR #### [facility] [address] [address] [address] Evangelist Chicas Color (U) LT. YELLOW Normal YELLOW [facility] Comment on above: Performed By: #### U MICRO, ERUR #### [facility] [address] [place] [address] Dr. Evangelist NURD A micrscopic examination will be performed if indicated. Normal [facility] Comment on above: Performed By: #### U MICRO, ERUR #### [facility] [address] [address] [address] Evangelist Chicas Glucose Ql (U) Negative Normal NEGATIVE [facility] Comment on above: Performed By: #### U MICRO, ERUR #### [facility] [address] [place] [address] Dr. Evangelist Chicas Hemoglobin Ql (U) TRACE-INTACT Abnormal NEGATIVE [facility] Comment on above: Performed By: #### U MICRO, ERUR #### [facility] [address] [address] [address] Evangelist Chicas Ketones Ql (U) Negative Normal NEGATIVE [facility] Comment on above: Performed By: #### U MICRO, ERUR #### [facility] [address] [place] [address] Dr. Evangelist Chicas LEUKOCYTES Negative Normal NEGATIVE [facility] Comment on above: Performed By: #### U MICRO, ERUR #### [facility] [address] [place] [address] Dr. Evangelist Chicas Nitrite Ql (U) Negative Normal NEGATIVE [facility] Comment on above: Performed By: #### U MICRO, ERUR #### [facility] [address] [place] [address] Dr. Evangelist Chicas pH (U) 6.0 [pH] Normal 5-9 [facility] Comment on above: Performed By: #### U MICRO, ERUR #### [facility] [address] [place] [address] Dr. Evangelist Chicas SPEC GRAVITY 1.010 Normal 1.005-<=1.025 [facility] Comment on above: Performed By: #### U MICRO, ERUR #### [facility] [address] [place] [address] Dr. Evangelist Chicas UA PROTEIN Negative Normal NEGATIVE/ TRACE [facility] Comment on above: Performed By: #### U MICRO, ERUR #### [facility] [address] [place] [address] Dr. Evangelist Chicas UR MICRO IND INDICATED Normal [facility] Comment on above: Performed By: #### U MICRO, ERUR #### [facility] [address] [place] [address] Dr. Evangelist Chicas Urobilinogen Qn (U) 0.2 {Amalia'U}/dL Normal 0.2 - 1.0 [facility] Comment on above: Performed By: #### U MICRO, ERUR #### [facility] [address] [place] [address] Dr. Evangelist Chicas INFLUENZA A AND B AGon 11-10 [facility] SEE BELOW Normal [facility] Comment on above: Result Comment: Nega tive for Flu A protein angiten. Infection due to Flu A cannot be ruled out. Flu A angiten in the sample may be below the detection limit of the test. Performed By: #### D DIM #### [facility] [address] [place] [address] Dr. Evangelist Chicas INFLUBNEGH SEE BELOW Normal [facility] Comment on above: Result Comment: Nega tive for Flu B protein antigen. Infection due to Flu B cannot be ruled out. Flu B antigen in the sample may be below the detection limit of the test. Performed By: #### D DIM #### [facility] [address] [place] [address] Dr. Evangelist Chicas INFLUENZA A AG Negative Normal NEGATIVE SEE COMMENT [facility] Comment on above: Performed By: #### D DIM #### [facility] [address] [place] [address] Dr. Evangelist Chicas INFLUENZA B AG Negative Normal NEGATIVE SEE COMMENT [facility] Comment on above: Performed By: #### D DIM #### [facility] [address] [place] [address] Dr. Evangelist Chicas PROF 14(COMP METB)on 023 Albumin [Mass/Vol] 3.1 g/dL Critically low 3.4-5.0 [facility] Comment on above: Performed By: #### B MP #### [facility] [address] [place] [address] Dr. Evangelist Chicas Albumin/Globulin [Mass ratio] 0.7 {ratio} Normal [facility] Comment on above: Performed By: #### B MP #### [facility] [address] [place] [address] Dr. Evangelist Chicas ALP [Catalytic activity/Vol] 108 U/L Normal 46-116 [facility] Comment on above: Performed By: #### B MP #### [facility] [address] [place] [address] Dr. Evangelist Chicas ALT [Catalytic activity/Vol] 20 U/L Normal 14-59 [facility] Comment on above: Performed By: #### B MP #### [facility] [address] [place] [address] Dr. Evangelist Chicas Anion gap [Moles/Vol] 6.0 mmol/L Normal [facility] Comment on above: Performed By: #### B MP #### [facility] [address] [place] [address] Dr. Evangelist Chicas AST [Catalytic activity/Vol] 16 U/L Normal 15-37 [facility] Comment on above: Performed By: #### B MP #### [facility] [address] [place] [address] Dr. Evangelist Chicas Bilirubin [Mass/Vol] 0.6 mg/dL Normal 0.2-1.0 [facility] Comment on above: Performed By: #### B MP #### [facility] [address] [address] [address] Evangelist Chicas Calcium [Mass/Vol] 9.1 mg/dL Normal 8.5-10.1 [facility] Comment on above: Performed By: #### B MP #### [facility] [address] [address] [address] Evangelist Chicas Chloride [Moles/Vol] 97 mmol/L Critically low 98-107 [facility] Comment on above: Performed By: #### B MP #### [facility] [address] [address] [address] Evangelist Chicas CO2 [Moles/Vol] 36.9 mmol/L Critically high 21.0-32.0 [facility] Comment on above: Performed By: #### B MP #### [facility] [address] [address] [address] Evangelist Chicas Creatinine [Mass/Vol] 0.71 mg/dL Normal 0.55-1.02 [facility] Comment on above: Performed By: #### B MP #### [facility] [address] [place] [address] Dr. Evangelist Chicas EGFR-AF NICARAGUAN >60 Normal >=60 [facility] Comment on above: Performed By: #### B MP #### [facility] [address] [address] [address] Evangelist Chicas EGFR-NON AF NICARAGUAN >60 Normal >=60 [facility] Comment on above: Performed By: #### B MP #### [facility] [address] [address] [address] Evangelist Chicas Globulin (S) [Mass/Vol] 4.4 g/dL Normal [facility] Comment on above: Performed By: #### B MP #### [facility] [address] [address] [address] Evangelist Chicas Glucose [Mass/Vol] 124 mg/dL Critically high 74-106 [facility] Comment on above: Performed By: #### B MP #### [facility] [address] [address] [address] Evangelist Chicas Potassium [Moles/Vol] 3.9 mmol/L Normal 3.5-5.1 [facility] Comment on above: Performed By: #### B MP #### [facility] [address] [address] [address] Evangelist Chicas Protein [Mass/Vol] 7.5 g/dL Normal 6.4-8.2 [facility] Comment on above: Performed By: #### B MP #### [facility] [address] [address] [address] Evangelist Chicas Sodium [Moles/Vol] 136 mmol/L Normal 136-145 [facility] Comment on above: Performed By: #### B MP #### [facility] [address] [address] [address] Evangelist Chicas Urea nitrogen [Mass/Vol] 17.0 mg/dL Normal 7.0-18.0 [facility] Comment on above: Performed By: #### B MP #### [facility] [address] [address] [address] Evangelist Chicas Urea nitrogen/Creatinin e [Mass ratio] 23.9 mg/mg Normal [facility] Comment on above: Performed By: #### B MP #### [facility] [address] [address] [address] Evangelist Chicas URINE MICROSCOPIC ONLYon BACTERIA NONE SEEN Normal NONE SEEN [facility] Comment on above: Performed By: #### U MICRO, ERUR #### [facility] [address] [address] [address] Evangelist Chicas Bacteria identified Cx Nom (U) NOT INDICATED Normal [facility] Comment on above: Performed By: #### U MICRO, ERUR #### [facility] [address] [address] [address] Evangelist Chicas CAST NONE SEEN Normal NONE SEEN [facility] Comment on above: Performed By: #### U MICRO, ERUR #### [facility] [address] [address] [address] Evangelist Chicas Crystals LM Nom (Urine sed) NONE SEEN Normal NONE SEEN [facility] Comment on above: Performed By: #### U MICRO, ERUR #### [facility] [address] [place] [address] Dr. Evangelist Chicas Epithelial cells LM Ql (Urine sed) FEW Abnormal NONE SEEN /RARE [facility] Comment on above: Performed By: #### U MICRO, ERUR #### [facility] [address] [place] [address] Dr. Evangelist Chicas MUCOUS NONE SEEN Normal NONE SEEN [facility] Comment on above: Performed By: #### U MICRO, ERUR #### [facility] [address] [place] [address] Dr. Evangelist Chicas RBC 0-2 Normal 0-2 [facility] Comment on above: Performed By: #### U MICRO, ERUR #### [facility] [address] [place] [address] Dr. Evangelist Chicas WBC NONE SEEN Normal NONE SEEN [facility] Comment on above: Performed By: #### U MICRO, ERUR #### [facility] [address] [place] [address] Dr. Evangelist Chicas XR CHEST 1 Von [...] by: JH JAIN Date: 2022-11-10 15:24 Normal [facility] Vital Signs Date Time Vital Sign Value Performing Clinician Faci lity 12-23-2023 13:24-0500 Body height 160 cm Mane Lee MD Work Phone: [facility] 12-23-2023 13:24-0500 Body mass index (BMI) [Ratio] 49.25 kg/m2 Mane Lee MD Work Phone: [facility] 12-23-2023 13:24-0500 Body temperature 97.3 [degF] Mane Lee MD Work Phone: [facility] 12-23-2023 13:24-0500 Body weight 126.1 kg Mane Lee MD Work Phone: [facility] 12-23-2023 13:24-0500 Diastolic blood pressure 80 mm[Hg] Mane Lee MD Work Phone: [facility] 12-23-2023 13:24-0500 Heart rate 96 /min Mane Lee MD Work Phone: [facility] 12-23-2023 13:24-0500 SaO2% (BldA) [Mass fraction] 96 % Mane Lee MD Work Phone: [facility] 12-23-2023 13:24-0500 Systolic blood pressure 140 mm[Hg] Mane Lee MD Work Phone: [facility] Encounters Encounter Date Encounter Type Care Provider Facility Start: 12-23-2023 End: 12-23-2023 ambulatory MANE LEE Not Available Start: 12-23-2023 Bamboo flowsheet Mane Lee MD Work Phone: [facility] Start: 12-23-2023 Bamboo flowsheet Mane Lee MD Work Phone: [facility] Start: 12-23-2023 End: 12-23-2023 Office outpatient visit 25 minutes Mane Lee MD Work Phone: [facility] Comment on above: Essential hypertensi on, benign (CMS/HCC) (Primary Dx); Degenerative lumbar spinal stenosis; Lumbar disc herniation with radiculopathy; Leg edema; Chronic obstructive pulmonary disease, unspecified COPD type (CMS/HCC) Start: 12-10-2023 End: 12-10-2023 ambulatory Lakisha Shipman Facility:[facility] Start: 12-10-2023 End: 12-10-2023 ambulatory MD Mane Lee Work Phone: [facility] Work Phone: Start: 12-10-2023 End: 12-10-2023 Patient encounter procedure MD Mane Lee Work Phone: [facility] Work Phone: Start: 11-26-2023 End: 11-26-2023 ambulatory MANE LEE Not Available Start: 10-31-2023 End: 10-31-2023 ambulatory MANE LEE Not Available Start: 08-25-2023 End: 08-26-2023 ambulatory Corine Frye MD Facility:[facility] Start: 01-29-2023 End: 01-30-[address] [...] for malign ant neoplasm of colon [facility] Start: 02-24-2024 End: 02-24-2024 Patient encounter procedure 02/24/2024 9:00 AM EDT Office Visit [facility] [address] [place] [address] Mane Lee MD [address] [place] [address] [facility] Start: 01-30-2024 Screening for malign ant neoplasm of breast Mammogram [facility] Start: 12-23-2023 End: 12-23-2023 Patient encounter procedure 12/23/2023 1:15 PM EST Office Visit [facility] [address] [place] [id number] Mane Lee MD [address] [place] [id number] Arrived [facility] Comment on above: Arrived Start: 1993 Screening for malign ant neoplasm of cervix [facility] Start: 1984 Screening for malign ant neoplasm of cervix Pap Smear [facility] Start: 1963 Screening for malign ant neoplasm of colon [facility] Payers Date Payer Category Payer Self-pay 2023 Unknown [id number] 2023 Unknown [id number] 2022 Unknown 1965 Unknown [id number] 2.16.84 [id number] 1963 Unknown [id number] 2.16.84 [id number] 1963 Unknown [id number] 2.16. [id number] 1963 Unknown [id number] 2.16.84 [id number] 1963 Unknown [id number] 2.16.84 [id number] 1963 Unknown [id number] 1959 Unknown [id number] Unknown [id number] 2.16.8 [id number] Social History Date Type Detail [facility] Work Phone: Start: 1965 Sex Assigned At Female F [facility] Start: 10-31-2023 [facility] History of [...] Note Facility Evaluation note No assessment information [facility] Work Phone: Evaluation note Note Date & [...] DATE CREATED AUTHOR AUTHOR'S ORGANIZ ATION 08/30/2023 [facility] DATE CREATED AUTHOR AUTHOR'S ORGANIZ ATION 12/19/2023 [facility] DATE CREATED AUTHOR AUTHOR'S ORGANIZ ATION 12/25/2023 [facility] Care Teams (unrecognized sec tion and content) Team Status: Active Member Role Status Dates Mane Lee MD Primary Care Provider Active Team Status: Inactive Member Role Status Dates Mane Lee MD Primary Care Provider Active S tart: December 10, 2023 End: December 10, 2023 BERNICE Blanc Attending Provider Active Start: December 10, 2023 End: December 10, 2023 Water [employer]ob[employer] In[employer] Relationship Specialty Start Date End Date Mane Lee MD [address] [place] [address] PCP - General Family Medicine 12/23/23 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 [facility] provides no warranty or guarantee of the accuracy or completeness of information in this document.
[2023-12-29 10:19] VITALS: BP 134/85; PULSE 96; RESP 16; TEMP 36.5; O2SAT 98
[2023-12-29 10:52] VITALS: BP 176/88; BP 179/80; PULSE 91; RESP 18; O2SAT 95; O2SAT 97
--- NOTE | 2023-12-29 10:54 | P.ON_ITS ---
Date of procedure: 12/29/23 Pre-op diagnosis: Lumbar stenosis with neurogenic claudication Post-op diagnosis: same as pre-op Procedure: Procedure: Left L3-4, L4-5 transforaminal epidural steroid injection Medications: Bupivacaine 0.25% 2cc, lidocaine 2% 1cc, kenalog 80mg The patient was seen and examined in the preoperative holding area.? Informed consent was obtained and placed on the chart.? Patient was brought to the medical procedure unit and placed in the prone position where a timeout was completed verifying the correct patient, procedure site, position, and planned special equipment using sterile aseptic technique.? Under direct fluoroscopic visualization a 25-gauge Quincke tipped spinal needle was advanced to the designated neural foramen where contrast dye was injected to show adequate spread.? The needle was inserted at level left L3-4. There was no evidence of vascular or adverse uptake.? Epidural spread was appreciated.? The above- mentioned injectate was then placed in a 1.5 mL aliquot preceded by negative aspiration.? The needle was removed. The needle was inserted and the procedure repeated at level left L4-5.? The surgery site was covered.? Patient was taken to the postprocedural recovery area and monitored for an appropriate length of time before found suitable for discharge in the accompaniment of a responsible adult. Anesthesia: Local Surgeon: Corine Frye Pathology: none sent Condition: stable Disposition: no change
[2023-12-29] MEDS: 0.9 % SODIUM CHLORIDE 10 ML INJ (10:55)
[2023-12-29] MEDS: DEXAMETHASONE SOD PHOS 10 MG/ML VIAL INJ (10:56)
[2023-12-29] MEDS: IOHEXOL 240 MG/ML - 10 ML VIAL 24 MG INJ (10:56)
[2023-12-29] MEDS: BUPIVACAINE HCL 0.25% PF 25 MG/10 ML VIAL INJ (10:56)
[2023-12-29] MEDS: LIDOCAINE HCL 2% PF 100 MG/5 ML VIAL 2 ML INJ (10:56)
== END 2023-12-29 10:59 | disposition home or self-care (01) ==
PROVIDERS: PCP Family Medicine; Visit Provider Anesthesiology
DX: M48.062 Spinal stenosis, lumbar region with neurogenic claudication (principal)
CPT/HCPCS: 64483; 64484; J0665; J1100; Q9966

== ENCOUNTER 2024-01-14 09:38 | Outpatient (OUT) | payer BC, SELFPAY ==
--- OUTSIDE RECORDS SUMMARY | 2024-01-14 09:42 | XMS_ITS | CCD ---
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 Technician Name Role Phone JESUS, DR MANE Avina Primary Care Unavailable EDDIE ., DR VAMSHI Correa Consulting Unavailable JESUS, DR MANE Avina Admitting Unavailable JESUS, DR MANE Avina Attending Unavailable SUSY, DR JH Hunter Consulting Unavailable JESUS, DR MANE Avina Consulting Unavailable KOLTON ., MR BARAJASEW Consulting Unavailable STRAWSER, DEL Consulting Unavailable CHOU, MALCOLM Consulting Unavailable JESUS, DR MANE Avina Admitting Unavailable JESUS, DR MANE Avina Attending Unavailable JESUS, DR MANE Avina Primary Care Unavailable MENNO, DR NIA Uriostegui Consulting Unavailable JESUS, DR MANE Avina Consulting Unavailable MD Mane Lee Primary Care Provider BERNICE Shipman Attending Provider Lakisha Shipman Attending Unavailable Lakisha Shipman Admitting Unavailable Mane Lee Primary Care Unavailable Mane Lee MD Primary Care Provider MANE LEE Attending Unavailable JESUS, MANE Attending Unavailable MANE LEE Attending Unavailable Melva BACK, Corine Puentes Attending Unavailable Melva BACK, Corine Puentes Attending Unavailable Allergies Allergy Classification Reported Allergen(s) Allergy Type Date of Onset Reaction(s) Facility (1 source) Ciprofloxacin Drug Allergy 10-19-2014 [facility] (1 source) Ciprofloxacin Drug Allergy 12-10-2023 [facility] Repository (3 sources) Ciprofloxacin Drug Allergy 10-31-2023 [facility] Medications Current Medications Medication Drug Class(es) Dates Sig (Normalized) Sig (Original) [id number] 200 actuat albuterol 0.09 mg/actuat metered dose [...] 5 MG tablet Indications: Essential hypertension, benign (CMS/HCC) Take 1 tablet (5 mg) by mouth [...] 10-31-2023 Chronic Other aftercare (1 source) Other fdc (current) drug therapy; 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: [OTH TELECOMMUNICATIONS PROFESSIONAL CURRENT DRUG THERAPY] Onset: 11-20-2022 Episodic Other aftercare (1 source) [facility] (current) use of opiate analgesic; 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: [FPC CURRNT USE OPIATE ANALGES] Onset: 11-20-2022 Episodic [...] 12-10-2023 XR lumbar spine 6V w bending [facility] [place] [address] XRay Report Signed Patient: Lawrence Harrison MR#: [id number] 8 : 1965 Acct:[id number] Age/Sex: 58 / F ADM Date: 12/10/23 [...] LOSS. Impression dictated by: Owen Smith Jr., D.O.12/10/2023 3:58 PM Dictation Location: [place] [address] Transcribed By: [facility] 12/10/23 1558 Dictated By: Owen Smith Jr, DO 12/10/23 1557 Signed By: 12/10/23 1558 Normal [facility] HEMOGLOBINon 01-29-2023 Hemoglobin (Bld) [Mass/Vol] 14.6 g/dL Normal 12.0-16.0 [facility] Comment on above: Performed By: #### H GB #### [facility] [address] [place] [address] Dr. Evangelist Chicas MG MAMM SCREEN 3D MANJIT CADon 01-29-2023 MG MAMM SCREEN 3D MANJIT CAD Patient: LAWRENCE HARRISON Exam Date: 01/29/2023 : 1965 Gender:F Ordering : DR MANE LEE . Admission #: [id number] Family : Order #: [id number] CLICK HERE TO VIEW EXAM RADIOLOGY REPORT [...] rectal cancer at age 73. LOCATION: [facility] BREAST COMPOSITION: Scattered areas fibroglandular density. FINDINGS: [...] MD on 01/29/2023 at 09:29 Normal [facility] CBC AUTO DIFFon 11-14-2022 BASO # 0.0 103/ul Normal 0.0-0.1 [facility] Comment on above: Performed By: #### B MP #### [facility] [address] [place] [address] [address] Evangelist Chicas Basophils/100 WBC (Bld) 0.1 % Critically low 0.2-2.0 [facility] Comment on above: Performed By: #### B MP #### [facility] [address] [place] [address] [address] Evangelist Chicas EO # 0.0 103/ul Normal 0.0-0.7 [facility] Comment on above: Performed By: #### B MP #### [facility] [address] [address] [address] Evangelist Chicas Eosinophils/100 WBC (Bld) 0.1 % Critically low 0.9-7.0 [facility] Comment on above: Performed By: #### B MP #### [facility] [address] [place] [address] Dr. Evangelist Chicas Erythrocyte distribution width (RBC) [Ratio] 13.1 % Normal 11.0-15.0 [facility] Comment on above: Performed By: #### B MP #### [facility] [address] [place] [address] Dr. Evangelist Chicas Hematocrit (Bld) [Volume fraction] 41.4 % Normal 36.0-48.0 [facility] Comment on above: Performed By: #### B MP #### [facility] [address] [place] [address] Dr. Evangelist Chicas Hemoglobin (Bld) [Mass/Vol] 13.0 g/dL Normal 12.0-16.0 [facility] Comment on above: Performed By: #### B MP #### [facility] [address] [place] [address] Dr. Evangelist Chicas IG # 0.03 10e3/ul Normal 0.00-0.03 [facility] Comment on above: Performed By: #### B MP #### [facility] [address] [place] [address] Dr. Evangelist Chicas IG % 0.4 % Normal 0.0-0.5 [facility] Comment on above: Performed By: #### B MP #### [facility] [address] [place] [address] Dr. Evangelist Chicas LYMPH # 0.4 103/ul Critically low 1.2-3.8 [facility] Comment on above: Performed By: #### B MP #### [facility] [address] [place] [address] Dr. Evangelist Chicas Lymphocytes/100 WBC (Bld) 4.7 % Critically low 20.5-60.0 [facility] Comment on above: Performed By: #### B MP #### [facility] [address] [place] [address] [address] Evangelist Chicas MANUAL DIFF REQ NO Normal [facility] Comment on above: Performed By: #### B MP #### [facility] [address] [address] [address] Evangelist Chicas MCH (RBC) [Entitic mass] 29.1 pg Normal 26.7-34.0 [facility] Comment on above: Performed By: #### B MP #### [facility] [address] [address] [address] Evangelist Chicas MCHC (RBC) [Mass/Vol] 31.4 g/dL Normal 29.9-35.2 [facility] Comment on above: Performed By: #### B MP #### [facility] [address] [place] [address] Dr. Evangelist Chicas MCV (RBC) [Entitic vol] 92.8 fL Normal 81.0-99.0 [facility] Comment on above: Performed By: #### B MP #### [facility] [address] [place] [address] Dr. Evangelist Chicas MONO # 0.1 103/ul Critically low 0.3-0.8 [facility] Comment on above: Performed By: #### B MP #### [facility] [address] [place] [address] Dr. Evangelist Chicas Monocytes/100 WBC (Bld) 1.8 % Normal 1.7-12.0 [facility] Comment on above: Performed By: #### B MP #### [facility] [address] [place] [address] Dr. Evangelist Chicas NEUT # 6.8 103/ul Critically high 1.4-6.5 [facility] Comment on above: Performed By: #### B MP #### [facility] [address] [place] [address] Dr. Evangelist Chicas Neutrophils/100 WBC (Bld) 92.9 % Critically high 43.0-75.0 [facility] Comment on above: Performed By: #### B MP #### [facility] [address] [address] [address] Evangelist Chicas Platelet mean volume (Bld) [Entitic vol] 11.3 fL Normal 9.5-13.5 [facility] Comment on above: Performed By: #### B MP #### [facility] [address] [address] [address] Evangelist Chicas PLT 109 103/ul Critically low 150-450 [facility] Comment on above: Performed By: #### B MP #### [facility] [address] [address] [address] Evangelist Chicas RBC 4.46 106/ul Normal 4.20-5.40 [facility] Comment on above: Performed By: #### B MP #### [facility] [address] [place] [address] Dr. Evangelist Chicas WBC 7.4 103/ul Normal 4.0-11.0 [facility] Comment on above: Performed By: #### B MP #### [facility] [address] [address] [address] Evangelist Chicas PROF CHEM 8 (BAS METB)on Anion gap [Moles/Vol] 11.8 mmol/L Normal [facility] Comment on above: Performed By: #### B MP #### [facility] [address] [place] [address] Dr. Evangelist Chicas Calcium [Mass/Vol] 9.3 mg/dL Normal 8.5-10.1 [facility] Comment on above: Performed By: #### B MP #### [facility] [address] [place] [address] Dr. Evangelist Chicas Chloride [Moles/Vol] 99 mmol/L Normal 98-107 [facility] Comment on above: Performed By: #### B MP #### [facility] [address] [place] [address] Dr. Evangelist Chicas CO2 [Moles/Vol] 31.6 mmol/L Normal 21.0-32.0 [facility] Comment on above: Performed By: #### B MP #### [facility] [address] [place] [address] Dr. Evangelist Chicas Creatinine [Mass/Vol] 0.75 mg/dL Normal 0.55-1.02 [facility] Comment on above: Performed By: #### B MP #### [facility] [address] [address] [address] Evangelist Chicas EGFR-AF AZERBAIJANI >60 Normal >=60 [facility] Comment on above: Performed By: #### B MP #### [facility] [address] [address] [address] Evangelist Chicas EGFR-NON AF AZERBAIJANI >60 Normal >=60 [facility] Comment on above: Performed By: #### B MP #### [facility] [address] [address] [address] Evangelist Chicas Glucose [Mass/Vol] 162 mg/dL Critically high 74-106 [facility] Comment on above: Performed By: #### B MP #### [facility] [address] [place] [address] Dr. Evangelist Chicas Potassium [Moles/Vol] 4.4 mmol/L Normal 3.5-5.1 [facility] Comment on above: Performed By: #### B MP #### [facility] [address] [place] [address] Dr. Evangelist Chicas Sodium [Moles/Vol] 138 mmol/L Normal 136-145 [facility] Comment on above: Performed By: #### B MP #### [facility] [address] [address] [address] Evangelist Chicas Urea nitrogen [Mass/Vol] 32.0 mg/dL Critically high 7.0-18.0 [facility] Comment on above: Performed By: #### B MP #### [facility] [address] [place] [address] Dr. Evangelist Chicas Urea nitrogen/Creatinin e [Mass ratio] 42.7 mg/mg Normal [facility] Comment on above: Performed By: #### B MP #### [facility] [address] [place] [address] Dr. Evangelist Chicas CBC AUTO DIFFon 11-13-2022 BASO # 0.0 103/ul Normal 0.0-0.1 [facility] Comment on above: Performed By: #### C BC #### [facility] [address] [place] [address] Dr. Evangelist Chicas Basophils/100 WBC (Bld) 0.1 % Critically low 0.2-2.0 [facility] Comment on above: Performed By: #### C BC #### [facility] [address] [place] [address] Dr. Evangelist Chicas EO # 0.0 103/ul Normal 0.0-0.7 [facility] Comment on above: Performed By: #### C BC #### [facility] [address] [place] [address] Dr. Evangelist Chicas Eosinophils/100 WBC (Bld) 0.0 % Critically low 0.9-7.0 [facility] Comment on above: Performed By: #### C BC #### [facility] [address] [place] [address] Dr. Evangelist Chicas Erythrocyte distribution width (RBC) [Ratio] 12.9 % Normal 11.0-15.0 [facility] Comment on above: Performed By: #### C BC #### [facility] [address] [place] [address] Dr. Evangelist Chicas Hematocrit (Bld) [Volume fraction] 39.0 % Normal 36.0-48.0 [facility] Comment on above: Performed By: #### C BC #### [facility] [address] [place] [address] Dr. Evangelist Chicas Hemoglobin (Bld) [Mass/Vol] 12.3 g/dL Normal 12.0-16.0 [facility] Comment on above: Performed By: #### C BC #### [facility] [address] [place] [address] Dr. Evangelist Chicas IG # 0.04 10e3/ul Critically high 0.00-0.03 [facility] Comment on above: Performed By: #### C BC #### [facility] [address] [place] [address] Dr. Evangelist Chicas IG % 0.4 % Normal 0.0-0.5 [facility] Comment on above: Performed By: #### C BC #### [facility] [address] [place] [address] Dr. Evangelist Chicas LYMPH # 0.5 103/ul Critically low 1.2-3.8 [facility] Comment on above: Performed By: #### C BC #### [facility] [address] [place] [address] Dr. Evangelist Chicas Lymphocytes/100 WBC (Bld) 4.5 % Critically low 20.5-60.0 [facility] Comment on above: Performed By: #### C BC #### [facility] [address] [place] [address] Dr. Evangelist Chicas MANUAL DIFF REQ NO Normal [facility] Comment on above: Performed By: #### C BC #### [facility] [address] [place] [address] Dr. Evangelist Chicas MCH (RBC) [Entitic mass] 29.7 pg Normal 26.7-34.0 [facility] Comment on above: Performed By: #### C BC #### [facility] [address] [place] [address] Dr. Evangelist Chicas MCHC (RBC) [Mass/Vol] 31.5 g/dL Normal 29.9-35.2 [facility] Comment on above: Performed By: #### C BC #### [facility] [address] [place] [address] Dr. Evangelist Chicas MCV (RBC) [Entitic vol] 94.2 fL Normal 81.0-99.0 [facility] Comment on above: Performed By: #### C BC #### [facility] [address] [place] [address] Dr. Evangelist Chicas MONO # 0.2 103/ul Critically low 0.3-0.8 [facility] Comment on above: Performed By: #### C BC #### [facility] [address] [place] [address] Dr. Evangelist Chicas Monocytes/100 WBC (Bld) 1.5 % Critically low 1.7-12.0 [facility] Comment on above: Performed By: #### C BC #### [facility] [address] [place] [address] Dr. Evangelist Chicas NEUT # 10.5 103/ul Critically high 1.4-6.5 [facility] Comment on above: Performed By: #### C BC #### [facility] [address] [place] [address] Dr. Evangelist Chicas Neutrophils/100 WBC (Bld) 93.5 % Critically high 43.0-75.0 [facility] Comment on above: Performed By: #### C BC #### [facility] [address] [place] [address] Dr. Evangelist Chicas Platelet mean volume (Bld) [Entitic vol] 10.4 fL Normal 9.5-13.5 [facility] Comment on above: Performed By: #### C BC #### [facility] [address] [place] [address] Dr. Evangelist Chicas PLT 169 103/ul Normal 150-450 [facility] Comment on above: Performed By: #### C BC #### [facility] [address] [place] [address] Dr. Evangelist Chicas RBC 4.14 106/ul Critically low 4.20-5.40 [facility] Comment on above: Performed By: #### C BC #### [facility] [address] [place] [address] Dr. Evangelist Chicas WBC 11.2 103/ul Critically high 4.0-11.0 [facility] Comment on above: Performed By: #### C BC #### [facility] [address] [place] [address] Dr. Evangelist Chicas CULTURE SPUTUMon 11-13-2022 CULTURE SPUTUM Culture Observations : NORMAL RESPIRATORY SHAINA. Normal [facility] Comment on above: Performed By: #### B MP #### [facility] [address] [place] [address] Dr. Evangelist Chicas PROF CHEM 8 (BAS METB)on Anion gap [Moles/Vol] 9.2 mmol/L Normal [facility] Comment on above: Performed By: #### D DIM #### [facility] [address] [address] [address] Evangelist Chicas Calcium [Mass/Vol] 9.1 mg/dL Normal 8.5-10.1 [facility] Comment on above: Performed By: #### D DIM #### [facility] [address] [address] [address] Evangelist Chicas Chloride [Moles/Vol] 100 mmol/L Normal 98-107 [facility] Comment on above: Performed By: #### D DIM #### [facility] [address] [place] [address] Dr. Evangelist Chicas CO2 [Moles/Vol] 33.8 mmol/L Critically high 21.0-32.0 [facility] Comment on above: Performed By: #### D DIM #### [facility] [address] [place] [address] Dr. Evangelist Chicas Creatinine [Mass/Vol] 0.85 mg/dL Normal 0.55-1.02 [facility] Comment on above: Performed By: #### D DIM #### [facility] [address] [place] [address] Dr. Evangelist Chicas EGFR-AF AZERBAIJANI >60 Normal >=60 [facility] Comment on above: Performed By: #### D DIM #### [facility] [address] [place] [address] Dr. Evangelist Chicas EGFR-NON AF AZERBAIJANI >60 Normal >=60 [facility] Comment on above: Performed By: #### D DIM #### [facility] [address] [place] [address] Dr. Evangelist Chicas Glucose [Mass/Vol] 151 mg/dL Critically high 74-106 [facility] Comment on above: Performed By: #### D DIM #### [facility] [address] [place] [address] Dr. Evangelist Chicas Potassium [Moles/Vol] 4.0 mmol/L Normal 3.5-5.1 [facility] Comment on above: Performed By: #### D DIM #### [facility] [address] [place] [address] Dr. Evangelist Chicas Sodium [Moles/Vol] 139 mmol/L Normal 136-145 [facility] Comment on above: Performed By: #### D DIM #### [facility] [address] [place] [address] Dr. Evangelist Chicas Urea nitrogen [Mass/Vol] 29.0 mg/dL Critically high 7.0-18.0 [facility] Comment on above: Performed By: #### D DIM #### [facility] [address] [place] [address] Dr. Evangelist Chicas Urea nitrogen/Creatinin e [Mass ratio] 34.1 mg/mg Normal [facility] Comment on above: Performed By: #### D DIM #### [facility] [address] [place] [address] Dr. Evangelist Chicas CBC AUTO DIFFon 11-12-2022 BASO # 0.0 103/ul Normal 0.0-0.1 [facility] Comment on above: Performed By: #### C BC #### [facility] [address] [place] [address] Dr. Evangelist Chicas Basophils/100 WBC (Bld) 0.1 % Critically low 0.2-2.0 [facility] Comment on above: Performed By: #### C BC #### [facility] [address] [place] [address] Dr. Evangelist Chicas EO # 0.0 103/ul Normal 0.0-0.7 [facility] Comment on above: Performed By: #### C BC #### [facility] [address] [place] [address] Dr. Evangelsit Chicas Eosinophils/100 WBC (Bld) 0.0 % Critically low 0.9-7.0 [facility] Comment on above: Performed By: #### C BC #### [facility] [address] [place] [address] Dr. Evangelist Chicas Erythrocyte distribution width (RBC) [Ratio] 12.8 % Normal 11.0-15.0 [facility] Comment on above: Performed By: #### C BC #### [facility] [address] [address] [address] Evangelist Chicas Hematocrit (Bld) [Volume fraction] 41.5 % Normal 36.0-48.0 [facility] Comment on above: Performed By: #### C BC #### [facility] [address] [place] [address] Dr. Evangelist Chicas Hemoglobin (Bld) [Mass/Vol] 13.0 g/dL Normal 12.0-16.0 [facility] Comment on above: Performed By: #### C BC #### [facility] [address] [place] [address] Dr. Evangelist Chicas IG # 0.04 10e3/ul Critically high 0.00-0.03 [facility] Comment on above: Performed By: #### C BC #### [facility] [address] [place] [address] Dr. Evangelist Chicas IG % 0.3 % Normal 0.0-0.5 [facility] Comment on above: Performed By: #### C BC #### [facility] [address] [place] [address] Dr. Evangelist Chicas LYMPH # 0.5 103/ul Critically low 1.2-3.8 [facility] Comment on above: Performed By: #### C BC #### [facility] [address] [place] [address] Dr. Evangelist Chicas Lymphocytes/100 WBC (Bld) 3.7 % Critically low 20.5-60.0 [facility] Comment on above: Performed By: #### C BC #### [facility] [address] [place] [address] Dr. Evangelist Chicas MANUAL DIFF REQ NO Normal [facility] Comment on above: Performed By: #### C BC #### [facility] [address] [place] [address] Dr. Evangelist Chicas MCH (RBC) [Entitic mass] 29.5 pg Normal 26.7-34.0 [facility] Comment on above: Performed By: #### C BC #### [facility] [address] [address] [address] Evangelist Chicas MCHC (RBC) [Mass/Vol] 31.3 g/dL Normal 29.9-35.2 [facility] Comment on above: Performed By: #### C BC #### [facility] [address] [address] [address] Evangelist Chicas MCV (RBC) [Entitic vol] 94.3 fL Normal 81.0-99.0 [facility] Comment on above: Performed By: #### C BC #### [facility] [address] [address] [address] Evangelist Chicas MONO # 0.2 103/ul Critically low 0.3-0.8 [facility] Comment on above: Performed By: #### C BC #### [facility] [address] [place] [address] Dr. Evangelist Chicas Monocytes/100 WBC (Bld) 1.3 % Critically low 1.7-12.0 [facility] Comment on above: Performed By: #### C BC #### [facility] [address] [address] [address] Evangelist Chicas NEUT # 12.4 103/ul Critically high 1.4-6.5 [facility] Comment on above: Performed By: #### C BC #### [facility] [address] [place] [address] Dr. Evangelist Chicas Neutrophils/100 WBC (Bld) 94.6 % Critically high 43.0-75.0 [facility] Comment on above: Performed By: #### C BC #### [facility] [address] [address] [address] Evangelist Chicas Platelet mean volume (Bld) [Entitic vol] 9.9 fL Normal 9.5-13.5 [facility] Comment on above: Performed By: #### C BC #### [facility] [address] [address] [address] Evangelist Chicas PLT 189 103/ul Normal 150-450 [facility] Comment on above: Performed By: #### C BC #### [facility] [address] [place], [place] [address] Dr. Evangelist Chicas RBC 4.40 106/ul Normal 4.20-5.40 [facility] Comment on above: Performed By: #### C BC #### [facility] [address] [place], [place] [address] Dr. Evangelist Chicas WBC 13.1 103/ul Critically high 4.0-11.0 [facility] Comment on above: Performed By: #### C BC #### [facility] [address] [place], [place] [address] Dr. Evangelist Chicas ECHOCARDIO M/2D COMPLETEon 0 11-12-2022 ECHOCARDIO M/2D COMPLETE Patient: LAWRENCE HARRISON Exam Date: 11/12/2022 : 1965 Gender:F Ordering : DR MANE LEE . Admission #: [id number] Family : DR VAMSHI MORGAN . Order #: [id number] CLICK HERE TO VIEW EXAM ECHOCARDIOGRAM REPORT [...] Goncalves M.D. on 11/12/2022 at 13:56 Normal [facility] PROF CHEM 8 (BAS METB)on Anion gap [Moles/Vol] 10.2 mmol/L Normal [facility] Comment on above: Performed By: #### B MP #### [facility] [address] [address] [address] Evangelist Chicas Calcium [Mass/Vol] 9.2 mg/dL Normal 8.5-10.1 [facility] Comment on above: Performed By: #### B MP #### [facility] [address] [place] [address] Dr. Evangelist Chicas Chloride [Moles/Vol] 99 mmol/L Normal 98-107 [facility] Comment on above: Performed By: #### B MP #### [facility] [address] [address] [address] Evangelist Chicas CO2 [Moles/Vol] 31.5 mmol/L Normal 21.0-32.0 [facility] Comment on above: Performed By: #### B MP #### [facility] [address] [place] [address] Dr. Evangelist Chicas Creatinine [Mass/Vol] 0.87 mg/dL Normal 0.55-1.02 [facility] Comment on above: Performed By: #### B MP #### [facility] [address] [address] [address] Evangelist Chicas EGFR-AF AZERBAIJANI >60 Normal >=60 [facility] Comment on above: Performed By: #### B MP #### [facility] [address] [address] [address] Evangelist Chicas EGFR-NON AF AZERBAIJANI >60 Normal >=60 [facility] Comment on above: Performed By: #### B MP #### [facility] [address] [place] [address] Dr. Evangelist Chicas Glucose [Mass/Vol] 168 mg/dL Critically high 74-106 [facility] Comment on above: Performed By: #### B MP #### [facility] [address] [address] [address] Evangelist Chicas Potassium [Moles/Vol] 3.7 mmol/L Normal 3.5-5.1 [facility] Comment on above: Performed By: #### B MP #### [facility] [address] [address] [address] Evangelist Chicas Sodium [Moles/Vol] 137 mmol/L Normal 136-145 [facility] Comment on above: Performed By: #### B MP #### [facility] [address] [place] [address] Dr. Evangelist Chicas Urea nitrogen [Mass/Vol] 28.0 mg/dL Critically high 7.0-18.0 [facility] Comment on above: Performed By: #### B MP #### [facility] [address] [place] [address] Dr. Evangelist Chicas Urea nitrogen/Creatinin e [Mass ratio] 32.2 mg/mg Normal [facility] Comment on above: Performed By: #### B MP #### [facility] [address] [place] [address] Dr. Evangelist Chicas CBC AUTO DIFFon 11-11-2022 BASO # 0.0 103/ul Normal 0.0-0.1 [facility] Comment on above: Performed By: #### C BC #### [facility] [address] [place] [address] Dr. Evangelist Chicas Basophils/100 WBC (Bld) 0.2 % Normal 0.2-2.0 [facility] Comment on above: Performed By: #### C BC #### [facility] [address] [place] [address] Dr. Evangelist Chicas EO # 0.0 103/ul Normal 0.0-0.7 [facility] Comment on above: Performed By: #### C BC #### [facility] [address] [place] [address] Dr. Evangelist Chicas Eosinophils/100 WBC (Bld) 0.0 % Critically low 0.9-7.0 [facility] Comment on above: Performed By: #### C BC #### [facility] [address] [place] [address] Dr. Evangelist Chicas Erythrocyte distribution width (RBC) [Ratio] 12.7 % Normal 11.0-15.0 [facility] Comment on above: Performed By: #### C BC #### [facility] [address] [place] [address] Dr. Evangelist Chicas Hematocrit (Bld) [Volume fraction] 41.7 % Normal 36.0-48.0 [facility] Comment on above: Performed By: #### C BC #### [facility] [address] [place] [address] Dr. Evangelist Chicas Hemoglobin (Bld) [Mass/Vol] 13.0 g/dL Normal 12.0-16.0 [facility] Comment on above: Performed By: #### C BC #### [facility] [address] [place] [address] Dr. Evangelist Chicas IG # 0.03 10e3/ul Normal 0.00-0.03 [facility] Comment on above: Performed By: #### C BC #### [facility] [address] [place] [address] Dr. Evangelist Chicas IG % 0.5 % Normal 0.0-0.5 [facility] Comment on above: Performed By: #### C BC #### [facility] [address] [place] [address] Dr. Evangelist Chicas LYMPH # 0.4 103/ul Critically low 1.2-3.8 [facility] Comment on above: Performed By: #### C BC #### [facility] [address] [place] [address] Dr. Evangelist Chicas Lymphocytes/100 WBC (Bld) 5.8 % Critically low 20.5-60.0 [facility] Comment on above: Performed By: #### C BC #### [facility] [address] [place] [address] Dr. Evangelist Chicas MANUAL DIFF REQ NO Normal [facility] Comment on above: Performed By: #### C BC #### [facility] [address] [address] [address] Evangelist Chicas MCH (RBC) [Entitic mass] 29.3 pg Normal 26.7-34.0 [facility] Comment on above: Performed By: #### C BC #### [facility] [address] [place] [address] Dr. Evangelist Chicas MCHC (RBC) [Mass/Vol] 31.2 g/dL Normal 29.9-35.2 [facility] Comment on above: Performed By: #### C BC #### [facility] [address] [place] [address] Dr. Evangelist Chicas MCV (RBC) [Entitic vol] 93.9 fL Normal 81.0-99.0 [facility] Comment on above: Performed By: #### C BC #### [facility] [address] [place] [address] Dr. Evangelist Chicas MONO # 0.0 103/ul Critically low 0.3-0.8 [facility] Comment on above: Performed By: #### C BC #### [facility] [address] [place] [address] Dr. Evangelist Chicas Monocytes/100 WBC (Bld) 0.6 % Critically low 1.7-12.0 [facility] Comment on above: Performed By: #### C BC #### [facility] [address] [place] [address] Dr. Evangelist Chicas NEUT # 6.0 103/ul Normal 1.4-6.5 [facility] Comment on above: Performed By: #### C BC #### [facility] [address] [place] [address] Dr. Evangelist Chicas Neutrophils/100 WBC (Bld) 92.9 % Critically high 43.0-75.0 [facility] Comment on above: Performed By: #### C BC #### [facility] [address] [place] [address] Dr. Evangelist Chicas Platelet mean volume (Bld) [Entitic vol] 10.8 fL Normal 9.5-13.5 [facility] Comment on above: Performed By: #### C BC #### [facility] [address] [address] [address] Evangelist Chicas PLT 141 103/ul Critically low 150-450 [facility] Comment on above: Performed By: #### C BC #### [facility] [address] [address] [address] Evangelist Chicas RBC 4.44 106/ul Normal 4.20-5.40 [facility] Comment on above: Performed By: #### C BC #### [facility] [address] [address] [address] Evangelist Chicas WBC 6.4 103/ul Normal 4.0-11.0 [facility] Comment on above: Performed By: #### C BC #### [facility] [address] [place] [address] Dr. Evangelist Chicas PROF CHEM 8 (BAS METB)on Anion gap [Moles/Vol] 7.5 mmol/L Normal [facility] Comment on above: Performed By: #### B MP #### [facility] [address] [place] [address] Dr. Evangelist Chicas Calcium [Mass/Vol] 8.9 mg/dL Normal 8.5-10.1 [facility] Comment on above: Performed By: #### B MP #### [facility] [address] [place] [address] Dr. Evangelist Chicas Chloride [Moles/Vol] 100 mmol/L Normal 98-107 [facility] Comment on above: Performed By: #### B MP #### [facility] [address] [place] [address] Dr. Evangelist Chicas CO2 [Moles/Vol] 33.9 mmol/L Critically high 21.0-32.0 [facility] Comment on above: Performed By: #### B MP #### [facility] [address] [place] [address] Dr. Evangelist Chicas Creatinine [Mass/Vol] 0.65 mg/dL Normal 0.55-1.02 [facility] Comment on above: Performed By: #### B MP #### [facility] [address] [place] [address] Dr. Evangelist Chicas EGFR-AF AZERBAIJANI >60 Normal >=60 [facility] Comment on above: Performed By: #### B MP #### [facility] [address] [place] [address] Dr. Evangelist Chicas EGFR-NON AF AZERBAIJANI >60 Normal >=60 [facility] Comment on above: Performed By: #### B MP #### [facility] [address] [place] [address] Dr. Evangelist Chicas Glucose [Mass/Vol] 152 mg/dL Critically high 74-106 T [facility] Comment on above: Performed By: #### B MP #### [facility] [address] [place] [address] Dr. Evangelist Chicas Potassium [Moles/Vol] 4.4 mmol/L Normal 3.5-5.1 [facility] Comment on above: Performed By: #### B MP #### [facility] [address] [place] [address] Dr. Evangelist Chicas Sodium [Moles/Vol] 137 mmol/L Normal 136-145 [facility] Comment on above: Performed By: #### B MP #### [facility] [address] [place] [address] Dr. Evangelist Chicas Urea nitrogen [Mass/Vol] 16.0 mg/dL Normal 7.0-18.0 [facility] Comment on above: Performed By: #### B MP #### [facility] [address] [place] [address] Dr. Evangelist Chicas Urea nitrogen/Creatinin e [Mass ratio] 24.6 mg/mg Normal [facility] Comment on above: Performed By: #### B MP #### [facility] [address] [place] [address] Dr. Evangelist Chicas BNPon 11-10-2022 Natriuretic peptide B (Bld) [Mass/Vol] 330.0 pg/mL Normal <=900.0 [facility] Comment on above: Performed By: #### B MP #### [facility] [address] [place] [address] Dr. Evangelist Chicas CARDIAC LIS ADMITon 023 CK [Catalytic activity/Vol] 40 U/L Normal 26-192 [facility] Comment on above: Performed By: #### D DIM #### [facility] [address] [place] [address] Dr. Evangelist Chicas CK.MB [Mass/Vol] 1.06 ng/mL Normal <=3.60 [facility] Comment on above: Performed By: #### D DIM #### [facility] [address] [place] [address] Dr. Evangelist Chicas HSTROP 21.6 pg/mL Normal 4.0-51.3 [facility] Comment on above: Result Comment: CUT- OFF POINTS HAVE BEEN ESTABLISHED BASED ON THE FOURTH UNIVERSAL DEFINITIONS OF MYOCARDIAL INFARCTION. THE UPPER REFERENCE LIMIT (URL) OF TROPONIN, DEFINED THE 99TH PERCENTILE OF cTnI DISTRIBUTION IN A REFERENCE POPULATION, HAS BEEN CONFIRMED THE DECISION THRESHOLD FOR OK DIAGNOSIS. Performed By: #### D DIM #### [facility] [address] [place] [address] Dr. Evangelist Chicas VANNA 41 ng/mL Normal 9-82 [facility] Comment on above: Performed By: #### D DIM #### [facility] [address] [place] [address] Dr. Evangelist Chicas CBC AUTO DIFFon 11-10-2022 BASO # 0.1 103/ul Normal 0.0-0.1 [facility] Comment on above: Performed By: #### B MP #### [facility] [address] [place] [address] Dr. Evangelist Chicas Basophils/100 WBC (Bld) 0.7 % Normal 0.2-2.0 [facility] Comment on above: Performed By: #### B MP #### [facility] [address] [place] [address] Dr. Evangelist Chicas EO # 0.1 103/ul Normal 0.0-0.7 [facility] Comment on above: Performed By: #### B MP #### [facility] [address] [place] [address] Dr. Evangelist Chicas Eosinophils/100 WBC (Bld) 1.1 % Normal 0.9-7.0 [facility] Comment on above: Performed By: #### B MP #### [facility] [address] [address] [address] Evangelist Chicas Erythrocyte distribution width (RBC) [Ratio] 12.8 % Normal 11.0-15.0 [facility] Comment on above: Performed By: #### B MP #### [facility] [address] [place] [address] Dr. Evangelist Chicas Hematocrit (Bld) [Volume fraction] 41.1 % Normal 36.0-48.0 [facility] Comment on above: Performed By: #### B MP #### [facility] [address] [place] [address] Dr. Evangelist Chicas Hemoglobin (Bld) [Mass/Vol] 13.2 g/dL Normal 12.0-16.0 [facility] Comment on above: Performed By: #### B MP #### [facility] [address] [place] [address] Dr. Evangelist Chicas IG # 0.02 10e3/ul Normal 0.00-0.03 [facility] Comment on above: Performed By: #### B MP #### [facility] [address] [place] [address] Dr. Evangelist Chicas IG % 0.3 % Normal 0.0-0.5 [facility] Comment on above: Performed By: #### B MP #### [facility] [address] [place] [address] Dr. Evangelist Chicas LYMPH # 0.7 103/ul Critically low 1.2-3.8 [facility] Comment on above: Performed By: #### B MP #### [facility] [address] [address] [address] Evangelist Chicas Lymphocytes/100 WBC (Bld) 9.5 % Critically low 20.5-60.0 [facility] Comment on above: Performed By: #### B MP #### [facility] [address] [place] [address] Dr. Evangelist Chicas MANUAL DIFF REQ NO Normal [facility] Comment on above: Performed By: #### B MP #### [facility] [address] [place] [address] Dr. Evangelist Chicas MCH (RBC) [Entitic mass] 29.6 pg Normal 26.7-34.0 [facility] Comment on above: Performed By: #### B MP #### [facility] [address] [place] [address] Dr. Evangelist Chicas MCHC (RBC) [Mass/Vol] 32.1 g/dL Normal 29.9-35.2 [facility] Comment on above: Performed By: #### B MP #### [facility] [address] [place] [address] Dr. Evangelist Chicas MCV (RBC) [Entitic vol] 92.2 fL Normal 81.0-99.0 [facility] Comment on above: Performed By: #### B MP #### [facility] [address] [place] [address] Dr. Evangelist Chicas MONO # 0.6 103/ul Normal 0.3-0.8 [facility] Comment on above: Performed By: #### B MP #### [facility] [address] [place] [address] Dr. Evangelist Chicas Monocytes/100 WBC (Bld) 8.1 % Normal 1.7-12.0 [facility] Comment on above: Performed By: #### B MP #### [facility] [address] [place] [address] Dr. Evangelist Chicas NEUT # 6.1 103/ul Normal 1.4-6.5 [facility] Comment on above: Performed By: #### B MP #### [facility] [address] [place] [address] Dr. Evangelist Chicas Neutrophils/100 WBC (Bld) 80.3 % Critically high 43.0-75.0 [facility] Comment on above: Performed By: #### B MP #### [facility] [address] [place] [address] Dr. Evangelist Chicas Platelet mean volume (Bld) [Entitic vol] 9.8 fL Normal 9.5-13.5 [facility] Comment on above: Performed By: #### B MP #### [facility] [address] [address] [address] Evangelist Chicas PLT 180 103/ul Normal 150-450 [facility] Comment on above: Performed By: #### B MP #### [facility] [address] [address] [address] Evangelist Chicas RBC 4.46 106/ul Normal 4.20-5.40 [facility] Comment on above: Performed By: #### B MP #### [facility] [address] [address] [address] Evangelist Chicas WBC 7.6 103/ul Normal 4.0-11.0 [facility] Comment on above: Performed By: #### B MP #### [facility] [address] [place] [address] Dr. Evangelist Chicas CTA CHEST WO W [...] DEL ENRIQUE Date: 2022-11-10 17:30 Normal [facility] Covid-19 PCR (CVDTB)on SARS-CoV-2 (COVID-19) RNA SHENG+probe Ql (Unsp spec) Not detected Normal NOT DETECTED [facility] Comment on above: Result Comment: When diagnostic [...] for this test is supported by the [place] of Health and Human Service's declaration that [...] used). Performed By: #### B MP #### [facility] [address] [place] [address] Dr. Evangelist Chicas D-DIMERon 11-10-2022 D-DIMER 0.63 mg/L FEU Critically high <=0.59 [facility] Comment on above: Performed By: #### D DIM #### [facility] [address] [place], [place] [address] Dr. Evangelist Chicas D-DIMER COMMENTS SEE BELOW Normal [facility] Comment on above: Result Comment: Incr [...] hospitalization. Performed By: #### D DIM #### [facility] [address] [place] [address] Dr. Evangelist Chicas ER URINE PROFILEon 3 Bilirubin Ql (U) Negative Normal NEGATIVE [facility] Comment on above: Performed By: #### U MICRO, ERUR #### [facility] [address] [place] [address] Dr. Evangelist Chicas Clarity (U) CLEAR Normal CLEAR [facility] Comment on above: Performed By: #### U MICRO, ERUR #### [facility] [address] [place] [address] Dr. Evangelist Chicas Color (U) LT. YELLOW Normal YELLOW [facility] Comment on above: Performed By: #### U MICRO, ERUR #### [facility] [address] [place] [address] Dr. Evangelist Chicas ERUAHD A micrscopic examination will be performed if indicated. Normal [facility] Comment on above: Performed By: #### U MICRO, ERUR #### [facility] [address] [place] [address] Dr. Evangelist Chicas Glucose Ql (U) Negative Normal NEGATIVE [facility] Comment on above: Performed By: #### U MICRO, ERUR #### [facility] [address] [place] [address] Dr. Evangelist Chicas Hemoglobin Ql (U) TRACE-INTACT Abnormal NEGATIVE [facility] Comment on above: Performed By: #### U MICRO, ERUR #### [facility] [address] [place] [address] Dr. Evangelist Chicas Ketones Ql (U) Negative Normal NEGATIVE [facility] Comment on above: Performed By: #### U MICRO, ERUR #### [facility] [address] [place] [address] Dr. Evangelist Chicas LEUKOCYTES Negative Normal NEGATIVE [facility] Comment on above: Performed By: #### U MICRO, ERUR #### [facility] [address] [place] [address] Dr. Evangelist Chicas Nitrite Ql (U) Negative Normal NEGATIVE [facility] Comment on above: Performed By: #### U MICRO, ERUR #### [facility] [address] [place] [address] Dr. Evangelist Chicas pH (U) 6.0 [pH] Normal 5-9 [facility] Comment on above: Performed By: #### U MICRO, ERUR #### [facility] [address] [place] [address] Dr. Evangelist Chicas SPEC GRAVITY 1.010 Normal 1.005-<=1.025 [facility] Comment on above: Performed By: #### U MICRO, ERUR #### [facility] [address] [place] [address] Dr. Evangelist Chicas UA PROTEIN Negative Normal NEGATIVE/ TRACE [facility] Comment on above: Performed By: #### U MICRO, ERUR #### [facility] [address] [place] [address] Dr. Evangelist Chicas UR MICRO IND INDICATED Normal [facility] Comment on above: Performed By: #### U MICRO, ERUR #### [facility] [address] [place] [address] Dr. Evangelist Chicas Urobilinogen Qn (U) 0.2 {Amalia'U}/dL Normal 0.2 - 1.0 [facility] Comment on above: Performed By: #### U MICRO, ERUR #### [facility] [address] [place] [address] Dr. Evangelist Chicas INFL[facility]ENZA A [facility] Normal [facility] Comment on above: Result Comment: Nega tive for Flu A protein angiten. Infection due to Flu A cannot be ruled out. Flu A angiten in the sample may be below the detection limit of the test. Performed By: #### D DIM #### [facility] [address] [place] [address] Dr. Evangelist Chicas INFLUBNEGH SEE BELOW Normal [facility] Comment on above: Result Comment: Nega tive for Flu B protein antigen. Infection due to Flu B cannot be ruled out. Flu B antigen in the sample may be below the detection limit of the test. Performed By: #### D DIM #### [facility] [address] [place] [address] Dr. Evangelist Chicas INFLUENZA A AG Negative Normal NEGATIVE SEE COMMENT [facility] Comment on above: Performed By: #### D DIM #### [facility] [address] [place] [address] Dr. Evangelist Chicas INFLUENZA B AG Negative Normal NEGATIVE SEE COMMENT [facility] Comment on above: Performed By: #### D DIM #### [facility] [address] [place] [address] Dr. Evangelist Chicas PROF 14(COMP METB)on 023 Albumin [Mass/Vol] 3.1 g/dL Critically low 3.4-5.0 [facility] Comment on above: Performed By: #### B MP #### [facility] [address] [place] [address] Dr. Evangelist Chicas Albumin/Globulin [Mass ratio] 0.7 {ratio} Normal [facility] Comment on above: Performed By: #### B MP #### [facility] [address] [place] [address] Dr. Evangelist Chicas ALP [Catalytic activity/Vol] 108 U/L Normal 46-116 [facility] Comment on above: Performed By: #### B MP #### [facility] [address] [place] [address] Dr. Evangelist Chicas ALT [Catalytic activity/Vol] 20 U/L Normal 14-59 [facility] Comment on above: Performed By: #### B MP #### [facility] [address] [place] [address] Dr. Evangelist Chicas Anion gap [Moles/Vol] 6.0 mmol/L Normal [facility] Comment on above: Performed By: #### B MP #### [facility] [address] [place] [address] Dr. Evangelist Chicas AST [Catalytic activity/Vol] 16 U/L Normal 15-37 [facility] Comment on above: Performed By: #### B MP #### [facility] [address] [address] [address] Evangelist Chicas Bilirubin [Mass/Vol] 0.6 mg/dL Normal 0.2-1.0 [facility] Comment on above: Performed By: #### B MP #### [facility] [address] [address] [address] Evangelist Chicas Calcium [Mass/Vol] 9.1 mg/dL Normal 8.5-10.1 [facility] Comment on above: Performed By: #### B MP #### [facility] [address] [address] [address] Evangelist Chicas Chloride [Moles/Vol] 97 mmol/L Critically low 98-107 [facility] Comment on above: Performed By: #### B MP #### [facility] [address] [place] [address] Dr. Evangelist Chicas CO2 [Moles/Vol] 36.9 mmol/L Critically high 21.0-32.0 [facility] Comment on above: Performed By: #### B MP #### [facility] [address] [address] [address] Evangelist Chicas Creatinine [Mass/Vol] 0.71 mg/dL Normal 0.55-1.02 [facility] Comment on above: Performed By: #### B MP #### [facility] [address] [place] [address] Dr. Evangelist Chicas EGFR-AF AZERBAIJANI >60 Normal >=60 [facility] Comment on above: Performed By: #### B MP #### [facility] [address] [place] [address] Dr. Evangelist Chicas EGFR-NON AF AZERBAIJANI >60 Normal >=60 [facility] Comment on above: Performed By: #### B MP #### [facility] [address] [address] [address] Evangelist Chicas Globulin (S) [Mass/Vol] 4.4 g/dL Normal [facility] Comment on above: Performed By: #### B MP #### [facility] [address] [address] [address] Evangelist Chicas Glucose [Mass/Vol] 124 mg/dL Critically high 74-106 T [facility] Comment on above: Performed By: #### B MP #### [facility] [address] [address] [address] Evangelist Chicas Potassium [Moles/Vol] 3.9 mmol/L Normal 3.5-5.1 [facility] Comment on above: Performed By: #### B MP #### [facility] [address] [address] [address] Evangelist Chicas Protein [Mass/Vol] 7.5 g/dL Normal 6.4-8.2 [facility] Comment on above: Performed By: #### B MP #### [facility] [address] [place] [address] Dr. Evangelist Chicas Sodium [Moles/Vol] 136 mmol/L Normal 136-145 [facility] Comment on above: Performed By: #### B MP #### [facility] [address] [place] [address] Dr. Evangelist Chicas Urea nitrogen [Mass/Vol] 17.0 mg/dL Normal 7.0-18.0 [facility] Comment on above: Performed By: #### B MP #### [facility] [address] [place] [address] Dr. Evangelist Chicas Urea nitrogen/Creatinin e [Mass ratio] 23.9 mg/mg Normal [facility] Comment on above: Performed By: #### B MP #### [facility] [address] [place] [address] Dr. Evangelist Chcias URINE MICROSCOPIC ONLYon BACTERIA NONE SEEN Normal NONE SEEN [facility] Comment on above: Performed By: #### U MICRO, ERUR #### [facility] [address] [place] [address] Dr. Evangelist Chicas Bacteria identified Cx Nom (U) NOT INDICATED Normal [facility] Comment on above: Performed By: #### U MICRO, ERUR #### [facility] [address] [place] [address] Dr. Evangelist Chicas CAST NONE SEEN Normal NONE SEEN [facility] Comment on above: Performed By: #### U MICRO, ERUR #### [facility] [address] [address] [address] Evangelist Chicas Crystals LM Nom (Urine sed) NONE SEEN Normal NONE SEEN [facility] Comment on above: Performed By: #### U MICRO, ERUR #### [facility] [address] [place] [address] Dr. Evangelist Chicas Epithelial cells LM Ql (Urine sed) FEW Abnormal NONE SEEN /RARE [facility] Comment on above: Performed By: #### U MICRO, ERUR #### [facility] [address] [place] [address] Dr. Evangelist Chicas MUCOUS NONE SEEN Normal NONE SEEN [facility] Comment on above: Performed By: #### U MICRO, ERUR #### [facility] [address] [place] [address] Dr. Evangelist Chicas RBC 0-2 Normal 0-2 [facility] Comment on above: Performed By: #### U MICRO, ERUR #### [facility] [address] [place] [address] Dr. Evangelist Chicas WBC NONE SEEN Normal NONE SEEN [facility] Comment on above: Performed By: #### U MICRO, ERUR #### [facility] [address] [place] [address] Dr. Evangelist Chicas XR CHEST 1 Von [...] by: JH JAIN Date: 2022-11-10 15:24 Normal [facility] Vital Signs Date Time Vital Sign Value Performing Clinician Faci lity 12-23-2023 13:24-0500 Body height 160 cm Mane Lee MD Work Phone: [facility] 12-23-2023 13:24-0500 Body mass index (BMI) [Ratio] 49.25 kg/m2 Mane Lee MD Work Phone: [facility] 12-23-2023 13:24-0500 Body temperature 97.3 [degF] Mane Lee MD Work Phone: [facility] 12-23-2023 13:24-0500 Body weight 126.1 kg Mane Lee MD Work Phone: [facility] 12-23-2023 13:24-0500 Diastolic blood pressure 80 mm[Hg] Mane Lee MD Work Phone: [facility] 12-23-2023 13:24-0500 Heart rate 96 /min Mane Lee MD Work Phone: [facility] 12-23-2023 13:24-0500 SaO2% (BldA) [Mass fraction] 96 % Mane Lee MD Work Phone: [facility] 12-23-2023 13:24-0500 Systolic blood pressure 140 mm[Hg] Mane Lee MD Work Phone: [facility] Healthcare Encounters Encounter Date Encounter Type Care Provider Facility Start: 12-29-2023 End: 12-30-2023 ambulatory Corine Frye MD Facility:[facility] Start: 12-23-2023 End: 12-23-2023 ambulatory MANE LEE Not Available Start: 12-23-2023 Bamboo flowsheet Mane Lee MD Work Phone: [facility] Start: 12-23-2023 Bamboo flowsheet Mane Lee MD Work Phone: [facility] Start: 12-23-2023 End: 12-23-2023 Office outpatient visit 25 minutes Mane Lee MD Work Phone: [facility] Comment on above: Essential hypertensi on, benign (CMS/HCC) (Primary Dx); Degenerative lumbar spinal stenosis; Lumbar disc herniation with radiculopathy; Leg edema; Chronic obstructive pulmonary disease, unspecified COPD type (CMS/HCC) Start: 12-10-2023 End: 12-10-2023 ambulatory Lakisha Shipman Facility:[facility] Start: 12-10-2023 End: 12-10-2023 ambulatory MD Mane Lee Work Phone: [facility] Work Phone: Start: 12-10-2023 End: 12-10-2023 Patient encounter procedure MD Mane Lee Work Phone: [facility] Work Phone: Start: 11-26-2023 End: 11-26-2023 ambulatory MANE LEE Not Available Start: 10-31-2023 End: 10-31-2023 ambulatory MANE LEE Not Available Start: 08-25-2023 End: 08-26-2023 ambulatory Corine Frye MD Facility:[facility] Start: 01-29-2023 End: 01-30-[address] MANE LEE Facility:[facility] Start: 11-10-2022 End: 11-14-2022 Evaluation [...] for malign ant neoplasm of colon [facility] Start: 02-24-2024 End: 02-24-2024 Patient encounter procedure 02/24/2024 9:00 AM EDT Office Visit [facility] [address] [place] [id number] Mane Lee MD [address] [place] [phone] [facility] Start: 01-30-2024 Screening for malign ant neoplasm of breast Mammogram [facility] Start: 12-23-2023 End: 12-23-2023 Patient encounter procedure 12/23/2023 1:15 PM EST Office Visit [facility] [address] [place] [address] Mane Lee MD [address] [place] [address] Arrived [facility] Comment on above: Arrived Start: 1993 Screening for malign ant neoplasm of cervix [facility] Start: 1984 Screening for malign ant neoplasm of cervix Pap Smear [facility] Start: 1963 Screening for malign ant neoplasm of colon [facility] Payers Date Payer Category Payer Self-pay 2023 Unknown [id number] 2023 Unknown [id number] 2022 Unknown [id number] 1963 Unknown [id number] 2.16.84 [id number] 1963 Unknown [id number] 2.16.84 [id number] 1963 Unknown [id number] 2.16.84 [id number] 1963 Unknown [id number] 2.16.84 [id number] 1963 Unknown [id number] 1963 Unknown [id number] 2.16. [id number] 1963 Unknown [id number] 2.16. [id number] 1959 Unknown [id number] Unknown [id number] 2.16.8 [id number] Social History Date Type Detail Facility Tobacco smoking stat [facility] Unknown if ever smoked [facility] Work Phone: Start: 1965 Sex Assigned At Female F [facility] Start: 10-31-2023 Tobacco smoking stat [facility] Smokes tobacco daily [facility] History of [...] Associated Problem(s): COPD (chronic obstructive pulmonary disease) ([facility]/HCC) Symptoms stable and use albuterol PRN. Associated Problem(s): Lumbar disc herniation with radiculopathy Pain unchanged and continued weakness in legs. Scheduled with pain pain management and will try injections. Extend off work until 03/08/24. Associated Problem(s): Leg edema Edema controlled with lasix and continue PRN. Elevated legs throughout the day. Associated Problem(s): Essential hypertension, benign ([facility]/HCC) BP controlled and monitor PRN. Associated Problem(s): Degenerative lumbar spinal stenosis Pain unchanged and continued weakness in legs. Scheduled with pain pain management and will try injections. Extend off work until 03/08/24. Subjective Patient ID: Lawrence Harrison is a 58 y.o. female who presents [...] Note Facility Evaluation note No assessment information availa [facility] Work Phone: Evaluation note Note Date [...] and content) DATE CREATED AUTHOR 02/02/2023 [facility] DATE CREATED AUTHOR AUTHOR'S ORGANIZ ATION 12/19/2023 [facility] DATE CREATED AUTHOR AUTHOR'S ORGANIZ ATION 12/25/2023 [facility] EPIC DATE CREATED AUTHOR AUTHOR'S ORGANIZ ATION 01/09/2024 [facility] Care Teams (unrecognized sec tion and content) Team Status: Active Member Role Status Dates Mane Lee MD Primary Care Provider Active Team Status: Inactive Member Role Status Dates Mane Lee MD Primary Care Provider Active S tart: December 10, 2023 End: December 10, 2023 DAILY BlancC Attending Provider Active Start: December 10, 2023 End: December 10, 2023 [employer] 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 [employer] [facility]. provides no warranty or guarantee of the accuracy or completeness of information in this document.
--- NOTE | 2024-01-14 10:08 | PM.CN ---
Consult Note: HPI Data of Consult Patient: known to practice within the last 3 years Requesting Physician: Rachael Robles NP Primary Care Provider: Mane Kearney MD Consult Narrative Reason for consult: f/u Narrative: Jazz Juares a pleasant 58 year old female presents for evaluation and management of chronic low back pain with NC. Today pain 7/10, increasing to 10/10, with tingling and weakness to bilateral legs. MRI revealed mild central canal stenosis and broad based disc protrusion at L4-5. Patient has failed conservative measures and greater than 6 weeks of PT. Patient was evaluated by Dr Whitman office who would like her to try injection therapy before consideration of surgical intervention. Patient finding mild benefit from celebrex 200mg BID, flexeril 10mg TID, and duloxetine 60mg daily. Patient continues to have moderate to severe pain and decline in functional ability. Patient recently underwent Left L3-4 L4-5 TFESI with 25% improvement in pain and functional ability. Patient would like to discuss additional options. cc:: CC: Rachael Robles NP Review of Systems ROS Status of ROS 10 or more systems reviewed and unremarkable except as noted in history and below Musculoskeletal Reports: back pain [facility]SH [facility] Medical History (Updated 12/25/23 @ 09:10 by Shruti Chowdary) Low back pain ?M54.50 - Low back pain, unspecified (ICD-10) Smoker ?F17.200 - Nicotine dependence, unspecified, uncomplicated (ICD-10) COPD (chronic obstructive pulmonary disease) ?J44.9 - Chronic obstructive pulmonary disease, unspecified (ICD-10) Hypertension ?I10 - Essential (primary) hypertension (ICD-10) Surgical History S/P carpal tunnel release ?Z98.890 - Other specified postprocedural states (ICD-10) S/P endometrial ablation ?Z98.890 - Other specified postprocedural states (ICD-10) Meds Home Medications and Allergies Home Medications Medication Instructions Recorded Confirmed Type amlodipine 5 mg tablet 5 mg PO DAILY 08/28/23 12/29/23 History celecoxib 200 mg capsule 200 mg PO Q12H PRN pain 08/28/23 12/29/23 History cholecalciferol (vitamin D3) 50 50 mcg PO DAILY 08/28/23 12/29/23 History mcg (2,000 unit) tablet losartan 100 1 tab PO DAILY 08/28/23 12/29/23 History mg-hydrochlorothiazide 25 mg tablet umeclidinium 62.5 mcg-vilanterol 1 inh inhalation Q24H 08/28/23 12/29/23 History 25 mcg/actuation powdr for inhalation (Anoro Ellipta) duloxetine 60 mg capsule,delayed 60 mg PO DAILY #30 caps 10/09/23 12/29/23 Rx release albuterol sulfate 90 mcg/actuation inhalation 12/25/23 History aerosol inhaler zonisamide 50 mg capsule 50 mg PO .HS 12/25/23 12/29/23 History Allergies Allergy/AdvReac Type Severity Reaction Status Date / Time ciprofloxacin [From Cipro] Allergy Verified 12/29/23 10:24 Exam Constitutional Documenting provider has reviewed patient's vital signs: yes Common normals: no apparent distress, oriented x3, healthy appearing, alert and well nourished General appearance: cooperative HENMT Common normals: normocephalic, hearing grossly normal bilaterally and moist oral mucous membranes Head and scalp: normocephalic Eye Common normals: PERRL Pupil: PERRL Neck & C-Spine Common normals: full ROM General: normal visual inspection Chest Common normals: inspection of chest normal Respiratory Common normals: normal respiratory effort, no retractions and no use of accessory muscles Back & Pelvis Lumbar spine/lower back: ROM limited, pain with ROM and straight leg raise negative bilaterally Other: lumbar facet loading positive at L3-4 L4-5 no radiculopathy on exam sensation intact BLE strength 5/5 in BLE pain increased with standing and walking, decreased with forward flexion and lying down. Extremity Common normals: normal to inspection and full ROM Neuro Common normals: oriented x3, CN's II-XII intact bilaterally, moves all extremities, no focal motor deficits, no sensory deficits noted and deep tendon reflexes 2+ bilaterally Sensorium/orientation: alert Gait (neuro): antalgic Motor exam: strength 5/5 throughout and no movement abnormalities noted Psych Common normals: mental status grossly normal, thought process normal, cooperative, affect normal, speech normal and activity/motor behavior normal Speech: normal speech Thought process: normal thought process Results Additional Findings Additional findings: I have checked an OARRS report on this patient today and there are no aberrancies noted in the prescribing history.?? A drug screen was completed and reviewed within the last year, and if there has not been a drug screen completed we ordered one today to monitor higher risk, state monitored pain medication use. As part of providing excellent, safe, comprehensive care, the following was completed at our patient's visit: 1. A medication reconciliation and review to ensure accurate knowledge of current/active medications, including asking our patients to inform us about any [id number] medications or herbal remedies/nutritional supplements/alternative remedies. 2. A review to specifically ensure our patients have had annual screening for: elevated body mass index (BMI), tobacco use, screening for depression, and screening for unhealthy alcohol use. When screening is concerning, patients are provided with education and the specific recommendation to discuss the concerning health issue and treatment options with their primary care provider. Assessment and Plan Assessment and Plan (1) Lumbar stenosis with neurogenic claudication: (2) Lumbar spondylosis: (3) Myofascial pain: Plan bilateral L3-4 L4-5 facet medial branch blocks x2 working towards thermal RFA. Dr Frye to review imaging to evaluate if he can safely place vertiflex device at L4-5, I have reviewed xray imaging and MRI imaging and it is consistent with Lumbar stenosis with NC if not a candidate for vertiflex can consider spinal cord stimulator for chronic low back pain, lumbar stenosis with NC continue current medications, tolerating well without side effects f/u 1 week after injection.
== END 2024-01-14 09:39 | disposition home or self-care (01) ==
LOC: PM 09:39
PROVIDERS: PCP Family Medicine; Visit Provider Nurse Practitioner
DX: M48.062 Spinal stenosis, lumbar region with neurogenic claudication (principal); M47.816 Spondylosis without myelopathy or radiculopathy, lumbar region; M79.18 Myalgia, other site
CPT/HCPCS: G0463

== ENCOUNTER 2024-01-26 07:15 | Day surgery (SDC) | payer BC, SELFPAY ==
--- OUTSIDE RECORDS SUMMARY | 2024-01-26 07:18 | XMS_ITS | CCD ---
Author Name Unknown Address [address] [place] [address] [id number] [place] [address] Organization [facility] Care Team Providers Care Automatic Toe Laster Name Role Phone JESUS, DR MANE Avina Primary Care Unavailable EDDIE ., DR VAMSHI Correa Consulting Unavailable JESUS, DR MANE Avina Admitting Unavailable JESUS, DR MANE Avina Attending Unavailable SUSY, DR JH Hunter Consulting Unavailable NADGERALD, DR MANE Avina Consulting Unavailable HI ., MR BUCKLEY Consulting Unavailable STRAWSER, DEL Consulting Unavailable CHOU, MALCOLM Consulting Unavailable JESUS, DR MANE Avina Admitting Unavailable JESUS, DR MANE Avina Attending Unavailable JESUS, DR MANE Avina Primary Care Unavailable [place], DR NIA Uriostegui Consulting Unavailable NADGERALD, DR MANE Avina Consulting Unavailable MD Mane Lee Primary Care Provider [phone] BERNICE Shipman Attending Provider Lakisha Shipman Attending Unavailable Lakisha Shipman Admitting Unavailable Mane Lee Primary Care Unavailable Mane Lee MD Primary Care Provider [phone] Melva BACK, Corine Puentes Attending Unavailable Melva BACK, Corine Puentes Attending Unavailable JESUS, MANE Attending Unavailable NADERER, MANE Attending Unavailable CHANGEREDale, MANE Attending Unavailable JESUS, MANE Attending Unavailable Allergies Allergy Classification Reported Allergen(s) Allergy Type Date of Onset Reaction(s) Facility (1 source) Ciprofloxacin Drug Allergy 10-19-2014 [facility] Repository (1 source) Ciprofloxacin Drug Allergy 12-10-2023 [facility] Repository (3 sources) Ciprofloxacin Drug Allergy 10-31-2023 [facility] Medications Current Medications Medication Drug Class(es) Dates Sig (Normalized) Sig (Original) [id number] 200 actuat albuterol 0.09 mg/actuat metered dose [...] the morning cholecalciferol (Vitamin D-3) 50 MCG (1999 [place]) tablet Indications: Vitamin D deficiency Take 1 tablet (50 mcg) by mouth in the morning. 90 tablet 3 10/28/2023 11/02/2024 Active cyclobenzaprine hydrochloride 10 mg oral tablet (3 sources) Muscle Relaxant Start: 11-06-2023 take 1 tablet by mouth three times [...] Indications: Moderate COPD (chronic obstructive pulmonary disease) ([facility]/HCC) Inhale 1 puff in the morning. 1 [...] 10-31-2023 Chronic Other aftercare (1 source) Other oysterman (current) drug therapy; 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: [OTH ENGRAVER SEALS CURRENT DRUG THERAPY] Onset: 11-20-2022 Episodic Other aftercare (1 source) care home (current) use of opiate analgesic; 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: [HALFWAY CURRNT USE OPIATE ANALGES] Onset: 11-20-2022 Episodic [...] 12-10-2023 XR lumbar spine 6V w bending [facility] [place] [address] XRay Report Signed Patient: Lawrence Juares MR#: [id number] 8 : 1965 Acct:[id number] Age/Sex: 58 / F ADM Date: 12/10/23 Loc: XD Room: Type: [facility] Attending Dr: Lakisha AMBROSIOC Copies to: BERNICE [...] LOSS. Impression dictated by: Owen Smith Jr., D.OMartell12/10/2023 3:58 PM Dictation Location: [place] [address] Transcribed By: [facility] 12/10/23 1558 Dictated By: Owen Smith Jr, DO 12/10/23 1557 Signed By: 12/10/23 1558 Normal [facility] HEMOGLOBINon 01-29-2023 Hemoglobin (Bld) [Mass/Vol] 14.6 g/dL Normal 12.0-16.0 [facility] Comment on above: Performed By: #### H GB #### [facility] [address] [place] [address] Dr. Evangelist Chicas MG MAMM SCREEN 3D MANJIT CADon 01-29-2023 MG MAMM SCREEN 3D MANJIT CAD Patient: LAWRENCE JUARES Exam Date: 01/29/2023 : 1965 Gender:F Ordering : DR MANE LEE . Admission #: [id number] Family : Order #: [id number] CLICK HERE TO VIEW EXAM RADIOLOGY REPORT [...] rectal cancer at age 73. LOCATION: [facility] BREAST COMPOSITION: Scattered areas fibroglandular density. FINDINGS: [...] MD on 01/29/2023 at 09:29 Normal [facility] CBC AUTO DIFFon 11-14-2022 BASO # 0.0 103/ul Normal 0.0-0.1 [facility] Comment on above: Performed By: #### B MP #### [facility] [address] [place] [address] [address] Evangelist Chicas Basophils/100 WBC (Bld) 0.1 % Critically low 0.2-2.0 [facility] Comment on above: Performed By: #### B MP #### [facility] [address] [place] [address] [address] Evangelist Chicas EO # 0.0 103/ul Normal 0.0-0.7 [facility] Comment on above: Performed By: #### B MP #### [facility] [address] [address] [address] Evangelist Chicas Eosinophils/100 WBC (Bld) 0.1 % Critically low 0.9-7.0 [facility] Comment on above: Performed By: #### B MP #### [facility] [address] [place] [address] Dr. Evangelist Chicas Erythrocyte distribution width (RBC) [Ratio] 13.1 % Normal 11.0-15.0 [facility] Comment on above: Performed By: #### B MP #### [facility] [address] [place] [address] Dr. Evangelist Chicas Hematocrit (Bld) [Volume fraction] 41.4 % Normal 36.0-48.0 [facility] Comment on above: Performed By: #### B MP #### [facility] [address] [place] [address] Dr. Evangelist Chicas Hemoglobin (Bld) [Mass/Vol] 13.0 g/dL Normal 12.0-16.0 [facility] Comment on above: Performed By: #### B MP #### [facility] [address] [place] [address] Dr. Evangelist Chicas IG # 0.03 10e3/ul Normal 0.00-0.03 [facility] Comment on above: Performed By: #### B MP #### [facility] [address] [place] [address] Dr. Evangelist Chicas IG % 0.4 % Normal 0.0-0.5 [facility] Comment on above: Performed By: #### B MP #### [facility] [address] [place] [address] Dr. Evangelist Chicas LYMPH # 0.4 103/ul Critically low 1.2-3.8 [facility] Comment on above: Performed By: #### B MP #### [facility] [address] [place] [address] Dr. Evangelist Chicas Lymphocytes/100 WBC (Bld) 4.7 % Critically low 20.5-60.0 [facility] Comment on above: Performed By: #### B MP #### [facility] [address] [address] [address] Evangelist Chicas MANUAL DIFF REQ NO Normal [facility] Comment on above: Performed By: #### B MP #### [facility] [address] [address] [address] Evangelist Chicas MCH (RBC) [Entitic mass] 29.1 pg Normal 26.7-34.0 [facility] Comment on above: Performed By: #### B MP #### [facility] [address] [address] [address] Evangelist Chicas MCHC (RBC) [Mass/Vol] 31.4 g/dL Normal 29.9-35.2 [facility] Comment on above: Performed By: #### B MP #### [facility] [address] [place] [address] Dr. Evangelist Chicas MCV (RBC) [Entitic vol] 92.8 fL Normal 81.0-99.0 [facility] Comment on above: Performed By: #### B MP #### [facility] [address] [place] [address] Dr. Evangelist Chicas MONO # 0.1 103/ul Critically low 0.3-0.8 [facility] Comment on above: Performed By: #### B MP #### [facility] [address] [place] [address] Dr. Evangelist Chicas Monocytes/100 WBC (Bld) 1.8 % Normal 1.7-12.0 [facility] Comment on above: Performed By: #### B MP #### [facility] [address] [place] [address] Dr. Evangelist Chicas NEUT # 6.8 103/ul Critically high 1.4-6.5 [facility] Comment on above: Performed By: #### B MP #### [facility] [address] [place] [address] Dr. Evangelist Chicas Neutrophils/100 WBC (Bld) 92.9 % Critically high 43.0-75.0 [facility] Comment on above: Performed By: #### B MP #### [facility] [address] [address] [address] Evangelist Chicas Platelet mean volume (Bld) [Entitic vol] 11.3 fL Normal 9.5-13.5 [facility] Comment on above: Performed By: #### B MP #### [facility] [address] [address] [address] Evangelist Chicas PLT 109 103/ul Critically low 150-450 [facility] Comment on above: Performed By: #### B MP #### [facility] [address] [address] [address] Evangelist Chicas RBC 4.46 106/ul Normal 4.20-5.40 [facility] Comment on above: Performed By: #### B MP #### [facility] [address] [address] [address] Evangelist Chicas WBC 7.4 103/ul Normal 4.0-11.0 [facility] Comment on above: Performed By: #### B MP #### [facility] [address] [address] [address] Evangelist Chicas PROF CHEM 8 (BAS METB)on Anion gap [Moles/Vol] 11.8 mmol/L Normal [facility] Comment on above: Performed By: #### B MP #### [facility] [address] [place] [address] Dr. Evangelist Chicas Calcium [Mass/Vol] 9.3 mg/dL Normal 8.5-10.1 [facility] Comment on above: Performed By: #### B MP #### [facility] [address] [place] [address] Dr. Evangelist Chicas Chloride [Moles/Vol] 99 mmol/L Normal 98-107 [facility] Comment on above: Performed By: #### B MP #### [facility] [address] [address] [address] Evangelist Chicas CO2 [Moles/Vol] 31.6 mmol/L Normal 21.0-32.0 [facility] Comment on above: Performed By: #### B MP #### [facility] [address] [address] [address] Evangelist Chicas Creatinine [Mass/Vol] 0.75 mg/dL Normal 0.55-1.02 [facility] Comment on above: Performed By: #### B MP #### [facility] [address] [place] [address] Dr. Evangelist Chicas EGFR-AF DANISH >60 Normal >=60 [facility] Comment on above: Performed By: #### B MP #### [facility] [address] [address] [address] Evangelist Chicas EGFR-NON AF DANISH >60 Normal >=60 [facility] Comment on above: Performed By: #### B MP #### [facility] [address] [place] [address] Dr. Evangelist Chicas Glucose [Mass/Vol] 162 mg/dL Critically high 74-106 [facility] Comment on above: Performed By: #### B MP #### [facility] [address] [place] [address] Dr. Evangelist Chicas Potassium [Moles/Vol] 4.4 mmol/L Normal 3.5-5.1 [facility] Comment on above: Performed By: #### B MP #### [facility] [address] [place] [address] Dr. Evangelist Chicas Sodium [Moles/Vol] 138 mmol/L Normal 136-145 [facility] [place] Comment on above: Performed By: #### B MP #### [facility] [address] [place] [address] Dr. Evangelist Chicas Urea nitrogen [Mass/Vol] 32.0 mg/dL Critically high 7.0-18.0 [facility] Comment on above: Performed By: #### B MP #### [facility] [address] [place] [address] Dr. Evangelist Chicas Urea nitrogen/Creatinin e [Mass ratio] 42.7 mg/mg Normal [facility] Comment on above: Performed By: #### B MP #### [facility] [address] [place] [address] Dr. Evangelist Chicas CBC AUTO DIFFon 11-13-2022 BASO # 0.0 103/ul Normal 0.0-0.1 [facility] Comment on above: Performed By: #### C BC #### [facility] [address] [place] [address] Dr. Evangelist Chicas Basophils/100 WBC (Bld) 0.1 % Critically low 0.2-2.0 [facility] Comment on above: Performed By: #### C BC #### [facility] [address] [place] [address] Dr. Evangelist Chicas EO # 0.0 103/ul Normal 0.0-0.7 [facility] Comment on above: Performed By: #### C BC #### [facility] [address] [place] [address] Dr. Evangelist Chicas Eosinophils/100 WBC (Bld) 0.0 % Critically low 0.9-7.0 [facility] Comment on above: Performed By: #### C BC #### [facility] [address] [place] [address] Dr. Evangelist Chicas Erythrocyte distribution width (RBC) [Ratio] 12.9 % Normal 11.0-15.0 [facility] Comment on above: Performed By: #### C BC #### [facility] [address] [place] [address] Dr. Evangelist Chicas Hematocrit (Bld) [Volume fraction] 39.0 % Normal 36.0-48.0 [facility] Comment on above: Performed By: #### C BC #### [facility] [address] [place] [address] Dr. Evangelist Chicas Hemoglobin (Bld) [Mass/Vol] 12.3 g/dL Normal 12.0-16.0 [facility] Comment on above: Performed By: #### C BC #### [facility] [address] [place] [address] Dr. Evangelist Chicas IG # 0.04 10e3/ul Critically high 0.00-0.03 [facility] Comment on above: Performed By: #### C BC #### [facility] [address] [place] [address] Dr. Evangelist Chicas IG % 0.4 % Normal 0.0-0.5 [facility] Comment on above: Performed By: #### C BC #### [facility] [address] [place] [address] Dr. Evangelist Chicas LYMPH # 0.5 103/ul Critically low 1.2-3.8 [facility] Comment on above: Performed By: #### C BC #### [facility] [address] [place] [address] Dr. Evangelist Chicas Lymphocytes/100 WBC (Bld) 4.5 % Critically low 20.5-60.0 [facility] Comment on above: Performed By: #### C BC #### [facility] [address] [place] [address] Dr. Evangelist Chicas MANUAL DIFF REQ NO Normal [facility] Comment on above: Performed By: #### C BC #### [facility] [address] [place] [address] Dr. Evangelist Chicas MCH (RBC) [Entitic mass] 29.7 pg Normal 26.7-34.0 [facility] Comment on above: Performed By: #### C BC #### [facility] [address] [place] [address] Dr. Evangelist Chicas MCHC (RBC) [Mass/Vol] 31.5 g/dL Normal 29.9-35.2 [facility] Comment on above: Performed By: #### C BC #### [facility] [address] [place] [address] Dr. Evangelist Chicas MCV (RBC) [Entitic vol] 94.2 fL Normal 81.0-99.0 [facility] Comment on above: Performed By: #### C BC #### [facility] [address] [place] [address] Dr. Evangelist Chicas MONO # 0.2 103/ul Critically low 0.3-0.8 [facility] Comment on above: Performed By: #### C BC #### [facility] [address] [place] [address] Dr. Evangelist Chicas Monocytes/100 WBC (Bld) 1.5 % Critically low 1.7-12.0 [facility] Comment on above: Performed By: #### C BC #### [facility] [address] [place] [address] Dr. Evangelist Chicas NEUT # 10.5 103/ul Critically high 1.4-6.5 [facility] Comment on above: Performed By: #### C BC #### [facility] [address] [place] [address] Dr. Evangelist Chicas Neutrophils/100 WBC (Bld) 93.5 % Critically high 43.0-75.0 [facility] Comment on above: Performed By: #### C BC #### [facility] [address] [place] [address] Dr. Evangelist Chicas Platelet mean volume (Bld) [Entitic vol] 10.4 fL Normal 9.5-13.5 [facility] Comment on above: Performed By: #### C BC #### [facility] [address] [place] [address] Dr. Evangelist Chicas PLT 169 103/ul Normal 150-450 [facility] Comment on above: Performed By: #### C BC #### [facility] [address] [place] [address] Dr. Evangelist Chicas RBC 4.14 106/ul Critically low 4.20-5.40 [facility] Comment on above: Performed By: #### C BC #### [facility] [address] [place] [address] Dr. Evangelist Chicas WBC 11.2 103/ul Critically high 4.0-11.0 [facility] Comment on above: Performed By: #### C BC #### [facility] [address] [place] [address] Dr. Evangelist Chicas CULTURE SPUTUMon 11-13-2022 CULTURE SPUTUM Culture Observations : NORMAL RESPIRATORY SHAINA. Normal [facility] Comment on above: Performed By: #### B MP #### [facility] [address] [place] [address] Dr. Evangelist Chicas PROF CHEM 8 (BAS METB)on Anion gap [Moles/Vol] 9.2 mmol/L Normal [facility] Comment on above: Performed By: #### D DIM #### [facility] [address] [address] [address] Evangelist Chicas Calcium [Mass/Vol] 9.1 mg/dL Normal 8.5-10.1 [facility] [place] Comment on above: Performed By: #### D DIM #### [facility] [address] [place] [address] Dr. Evangelist Chicas Chloride [Moles/Vol] 100 mmol/L Normal 98-107 [facility] Comment on above: Performed By: #### D DIM #### [facility] [address] [place] [address] Dr. Evangelist Chicas CO2 [Moles/Vol] 33.8 mmol/L Critically high 21.0-32.0 [facility] Comment on above: Performed By: #### D DIM #### [facility] [address] [place] [address] Dr. Evangelist Chicas Creatinine [Mass/Vol] 0.85 mg/dL Normal 0.55-1.02 [facility] Comment on above: Performed By: #### D DIM #### [facility] [address] [place] [address] Dr. Evangelist Chicas EGFR-AF DANISH >60 Normal >=60 [facility] Comment on above: Performed By: #### D DIM #### [facility] [address] [place] [address] Dr. Evangelist Chicas EGFR-NON AF DANISH >60 Normal >=60 [facility] Comment on above: Performed By: #### D DIM #### [facility] [address] [place] [address] Dr. Evangelist Chicas Glucose [Mass/Vol] 151 mg/dL Critically high 74-106 [facility] Comment on above: Performed By: #### D DIM #### [facility] [address] [place] [address] Dr. Evangelist Chicas Potassium [Moles/Vol] 4.0 mmol/L Normal 3.5-5.1 [facility] Comment on above: Performed By: #### D DIM #### [facility] [address] [address] [address] Evangelist Chicas Sodium [Moles/Vol] 139 mmol/L Normal 136-145 [facility] [place] Comment on above: Performed By: #### D DIM #### [facility] [address] [place] [address] Dr. Evangelist Chicas Urea nitrogen [Mass/Vol] 29.0 mg/dL Critically high 7.0-18.0 [facility] Comment on above: Performed By: #### D DIM #### [facility] [address] [place] [address] Dr. Evangelist Chicas Urea nitrogen/Creatinin e [Mass ratio] 34.1 mg/mg Normal [facility] Comment on above: Performed By: #### D DIM #### [facility] [address] [place] [address] Dr. Evangelist Chicas CBC AUTO DIFFon 11-12-2022 BASO # 0.0 103/ul Normal 0.0-0.1 [facility] Comment on above: Performed By: #### C BC #### [facility] [address] [place] [address] Dr. Evangelist Chicas Basophils/100 WBC (Bld) 0.1 % Critically low 0.2-2.0 [facility] Comment on above: Performed By: #### C BC #### [facility] [address] [place] [address] Dr. Evangelist Chicas EO # 0.0 103/ul Normal 0.0-0.7 [facility] Comment on above: Performed By: #### C BC #### [facility] [address] [place] [address] Dr. Evangelist Chicas Eosinophils/100 WBC (Bld) 0.0 % Critically low 0.9-7.0 [facility] Comment on above: Performed By: #### C BC #### [facility] [address] [place] [address] Dr. Evangelist Chicas Erythrocyte distribution width (RBC) [Ratio] 12.8 % Normal 11.0-15.0 [facility] Comment on above: Performed By: #### C BC #### [facility] [address] [address] [address] Evangelist Chicas Hematocrit (Bld) [Volume fraction] 41.5 % Normal 36.0-48.0 [facility] Comment on above: Performed By: #### C BC #### [facility] [address] [address] [address] Evangelist Chicas Hemoglobin (Bld) [Mass/Vol] 13.0 g/dL Normal 12.0-16.0 [facility] Comment on above: Performed By: #### C BC #### [facility] [address] [address] [address] Evangelist Chicas IG # 0.04 10e3/ul Critically high 0.00-0.03 [facility] Comment on above: Performed By: #### C BC #### [facility] [address] [place] [address] Dr. Evangelist Chicas IG % 0.3 % Normal 0.0-0.5 [facility] Comment on above: Performed By: #### C BC #### [facility] [address] [place] [address] Dr. Evangelist Chicas LYMPH # 0.5 103/ul Critically low 1.2-3.8 [facility] Comment on above: Performed By: #### C BC #### [facility] [address] [place] [address] Dr. Evangelist Chicas Lymphocytes/100 WBC (Bld) 3.7 % Critically low 20.5-60.0 [facility] Comment on above: Performed By: #### C BC #### [facility] [address] [place] [address] Dr. Evangelist Chicas MANUAL DIFF REQ NO Normal [facility] Comment on above: Performed By: #### C BC #### [facility] [address] [place] [address] Dr. Evangelist Chicas MCH (RBC) [Entitic mass] 29.5 pg Normal 26.7-34.0 [facility] Comment on above: Performed By: #### C BC #### [facility] [address] [address] [address] Evangelist Chicas MCHC (RBC) [Mass/Vol] 31.3 g/dL Normal 29.9-35.2 [facility] Comment on above: Performed By: #### C BC #### [facility] [address] [address] [address] Evangelist Chicas MCV (RBC) [Entitic vol] 94.3 fL Normal 81.0-99.0 [facility] Comment on above: Performed By: #### C BC #### [facility] [address] [address] [address] Evangelist Chicas MONO # 0.2 103/ul Critically low 0.3-0.8 [facility] Comment on above: Performed By: #### C BC #### [facility] [address] [place] [address] Dr. Evangelist Chicas Monocytes/100 WBC (Bld) 1.3 % Critically low 1.7-12.0 [facility] Comment on above: Performed By: #### C BC #### [facility] [address] [address] [address] Evangelist Chicas NEUT # 12.4 103/ul Critically high 1.4-6.5 [facility] Comment on above: Performed By: #### C BC #### [facility] [address] [place] [address] Dr. Evangelist Chicas Neutrophils/100 WBC (Bld) 94.6 % Critically high 43.0-75.0 [facility] Comment on above: Performed By: #### C BC #### [facility] [address] [place] [address] Dr. Evangelist Chicas Platelet mean volume (Bld) [Entitic vol] 9.9 fL Normal 9.5-13.5 [facility] Comment on above: Performed By: #### C BC #### [facility] [address] [place] [address] Dr. Evangelist Chicas PLT 189 103/ul Normal 150-450 [facility] Comment on above: Performed By: #### C BC #### [facility] [address] [place], [place] [address] Dr. Evangelist Chicas RBC 4.40 106/ul Normal 4.20-5.40 [facility] Comment on above: Performed By: #### C BC #### [facility] [address] [place], [place] [address] Dr. Evangelist Chicas WBC 13.1 103/ul Critically high 4.0-11.0 [facility] Comment on above: Performed By: #### C BC #### [facility] [address] [place], [place] [address] Dr. Evangelist Chicas ECHOCARDIO M/2D COMPLETEon 0 11-12-2022 ECHOCARDIO M/2D COMPLETE Patient: LAWRENCE JUARES Exam Date: 11/12/2022 : 1965 Gender:F Ordering : DR MANE LEE . Admission #: [id number] Family : DR VAMSHI MORGAN . Order #: [id number] CLICK HERE TO VIEW EXAM ECHOCARDIOGRAM REPORT [...] M.D. on 11/12/2022 at 13:56 Normal [facility] PROF CHEM 8 (BAS METB)on Anion gap [Moles/Vol] 10.2 mmol/L Normal [facility] Comment on above: Performed By: #### B MP #### [facility] [address] [address] [address] Evangelist Chicas Calcium [Mass/Vol] 9.2 mg/dL Normal 8.5-10.1 [facility] [place] Comment on above: Performed By: #### B MP #### [facility] [address] [place] [address] Dr. Evangelist Chicas Chloride [Moles/Vol] 99 mmol/L Normal 98-107 [facility] Comment on above: Performed By: #### B MP #### [facility] [address] [address] [address] Evangelist Chicas CO2 [Moles/Vol] 31.5 mmol/L Normal 21.0-32.0 [facility] Comment on above: Performed By: #### B MP #### [facility] [address] [place] [address] Dr. Evangelist Chicas Creatinine [Mass/Vol] 0.87 mg/dL Normal 0.55-1.02 [facility] Comment on above: Performed By: #### B MP #### [facility] [address] [address] [address] Evangelist Chicas EGFR-AF DANISH >60 Normal >=60 [facility] Comment on above: Performed By: #### B MP #### [facility] [address] [address] [address] Evangelist Chicas EGFR-NON AF DANISH >60 Normal >=60 [facility] Comment on above: Performed By: #### B MP #### [facility] [address] [place] [address] Dr. Evangelist Chicas Glucose [Mass/Vol] 168 mg/dL Critically high 74-106 T [facility] Comment on above: Performed By: #### B MP #### [facility] [address] [address] [address] Evangelist Chicas Potassium [Moles/Vol] 3.7 mmol/L Normal 3.5-5.1 [facility] Comment on above: Performed By: #### B MP #### [facility] [address] [address] [address] Evangelist Chicas Sodium [Moles/Vol] 137 mmol/L Normal 136-145 [facility] [place] Comment on above: Performed By: #### B MP #### [facility] [address] [address] [address] Evangelist Chicas Urea nitrogen [Mass/Vol] 28.0 mg/dL Critically high 7.0-18.0 [facility] Comment on above: Performed By: #### B MP #### [facility] [address] [address] [address] Evangelist Chicas Urea nitrogen/Creatinin e [Mass ratio] 32.2 mg/mg Normal [facility] Comment on above: Performed By: #### B MP #### [facility] [address] [address] [address] Evangelist Chicas CBC AUTO DIFFon 11-11-2022 BASO # 0.0 103/ul Normal 0.0-0.1 [facility] Comment on above: Performed By: #### C BC #### [facility] [address] [address] [address] Evangelist Chicas Basophils/100 WBC (Bld) 0.2 % Normal 0.2-2.0 [facility] Comment on above: Performed By: #### C BC #### [facility] [address] [address] [address] Evangelist Chicas EO # 0.0 103/ul Normal 0.0-0.7 [facility] Comment on above: Performed By: #### C BC #### [facility] [address] [place] [address] Dr. Evangelist Chicas Eosinophils/100 WBC (Bld) 0.0 % Critically low 0.9-7.0 [facility] Comment on above: Performed By: #### C BC #### [facility] [address] [place] [address] Dr. Evangelist Chicas Erythrocyte distribution width (RBC) [Ratio] 12.7 % Normal 11.0-15.0 [facility] Comment on above: Performed By: #### C BC #### [facility] [address] [place] [address] Dr. Evangelist Chicas Hematocrit (Bld) [Volume fraction] 41.7 % Normal 36.0-48.0 [facility] Comment on above: Performed By: #### C BC #### [facility] [address] [place] [address] Dr. Evangelist Chicas Hemoglobin (Bld) [Mass/Vol] 13.0 g/dL Normal 12.0-16.0 [facility] Comment on above: Performed By: #### C BC #### [facility] [address] [place] [address] Dr. Evangelist Chicas IG # 0.03 10e3/ul Normal 0.00-0.03 [facility] Comment on above: Performed By: #### C BC #### [facility] [address] [place] [address] Dr. Evangelist Chicas IG % 0.5 % Normal 0.0-0.5 [facility] Comment on above: Performed By: #### C BC #### [facility] [address] [place] [address] Dr. Evangelist Chicas LYMPH # 0.4 103/ul Critically low 1.2-3.8 [facility] Comment on above: Performed By: #### C BC #### [facility] [address] [place] [address] Dr. Evangelist Chicas Lymphocytes/100 WBC (Bld) 5.8 % Critically low 20.5-60.0 [facility] Comment on above: Performed By: #### C BC #### [facility] [address] [place] [address] Dr. Evangelist Chicas MANUAL DIFF REQ NO Normal [facility] Comment on above: Performed By: #### C BC #### [facility] [address] [address] [address] Evangelist Chicas MCH (RBC) [Entitic mass] 29.3 pg Normal 26.7-34.0 [facility] Comment on above: Performed By: #### C BC #### [facility] [address] [place] [address] Dr. Evangelist Chicas MCHC (RBC) [Mass/Vol] 31.2 g/dL Normal 29.9-35.2 [facility] Comment on above: Performed By: #### C BC #### [facility] [address] [place] [address] Dr. Evangelist Chicas MCV (RBC) [Entitic vol] 93.9 fL Normal 81.0-99.0 [facility] Comment on above: Performed By: #### C BC #### [facility] [address] [place] [address] Dr. Evangelist Chicas MONO # 0.0 103/ul Critically low 0.3-0.8 [facility] Comment on above: Performed By: #### C BC #### [facility] [address] [place] [address] Dr. Evangelist Chicas Monocytes/100 WBC (Bld) 0.6 % Critically low 1.7-12.0 [facility] Comment on above: Performed By: #### C BC #### [facility] [address] [place] [address] Dr. Evangelist Chicas NEUT # 6.0 103/ul Normal 1.4-6.5 [facility] Comment on above: Performed By: #### C BC #### [facility] [address] [place] [address] Dr. Evangelist Chicas Neutrophils/100 WBC (Bld) 92.9 % Critically high 43.0-75.0 [facility] Comment on above: Performed By: #### C BC #### [facility] [address] [place] [address] Dr. Evangelist Chicas Platelet mean volume (Bld) [Entitic vol] 10.8 fL Normal 9.5-13.5 [facility] Comment on above: Performed By: #### C BC #### [facility] [address] [address] [address] Evangelist Chicas PLT 141 103/ul Critically low 150-450 [facility] Comment on above: Performed By: #### C BC #### [facility] [address] [address] [address] Evangelist Chicas RBC 4.44 106/ul Normal 4.20-5.40 [facility] Comment on above: Performed By: #### C BC #### [facility] [address] [address] [address] Evangelist Chicas WBC 6.4 103/ul Normal 4.0-11.0 [facility] Comment on above: Performed By: #### C BC #### [facility] [address] [place] [address] Dr. Evangelist Chicas PROF CHEM 8 (BAS METB)on Anion gap [Moles/Vol] 7.5 mmol/L Normal [facility] Comment on above: Performed By: #### B MP #### [facility] [address] [place] [address] Dr. Evangelist Chicas Calcium [Mass/Vol] 8.9 mg/dL Normal 8.5-10.1 [facility] [place] Comment on above: Performed By: #### B MP #### [facility] [address] [place] [address] Dr. Evangelist Chicas Chloride [Moles/Vol] 100 mmol/L Normal 98-107 [facility] Comment on above: Performed By: #### B MP #### [facility] [address] [place] [address] Dr. Evangelist Chicas CO2 [Moles/Vol] 33.9 mmol/L Critically high 21.0-32.0 [facility] Comment on above: Performed By: #### B MP #### [facility] [address] [place] [address] Dr. Evangelist Chicas Creatinine [Mass/Vol] 0.65 mg/dL Normal 0.55-1.02 [facility] Comment on above: Performed By: #### B MP #### [facility] [address] [address] [address] Evangelist Chicas EGFR-AF DANISH >60 Normal >=60 [facility] Comment on above: Performed By: #### B MP #### [facility] [address] [address] [address] Evangelist Chicas EGFR-NON AF DANISH >60 Normal >=60 [facility] Comment on above: Performed By: #### B MP #### [facility] [address] [place] [address] Dr. Evangelist Chicas Glucose [Mass/Vol] 152 mg/dL Critically high 74-106 T [facility] Comment on above: Performed By: #### B MP #### [facility] [address] [place] [address] Dr. Evangelist Chicas Potassium [Moles/Vol] 4.4 mmol/L Normal 3.5-5.1 [facility] Comment on above: Performed By: #### B MP #### [facility] [address] [place] [address] Dr. Evangelist Chicas Sodium [Moles/Vol] 137 mmol/L Normal 136-145 [facility] Comment on above: Performed By: #### B MP #### [facility] [address] [place] [address] Dr. Evangelist Chicas Urea nitrogen [Mass/Vol] 16.0 mg/dL Normal 7.0-18.0 [facility] Comment on above: Performed By: #### B MP #### [facility] [address] [place] [address] Dr. Evangelist Chicas Urea nitrogen/Creatinin e [Mass ratio] 24.6 mg/mg Normal [facility] Comment on above: Performed By: #### B MP #### [facility] [address] [place] [address] Dr. Evangelist Chicas BNPon 11-10-2022 Natriuretic peptide B (Bld) [Mass/Vol] 330.0 pg/mL Normal <=900.0 [facility] Comment on above: Performed By: #### B MP #### [facility] [address] [place] [address] Dr. Evangelist Chicas CARDIAC LIS ADMITon 023 CK [Catalytic activity/Vol] 40 U/L Normal 26-192 [facility] Comment on above: Performed By: #### D DIM #### [facility] [address] [place] [address] Dr. Evangelist Chicas CK.MB [Mass/Vol] 1.06 ng/mL Normal <=3.60 [facility] Comment on above: Performed By: #### D DIM #### [facility] [address] [place] [address] Dr. Evangelist Chicas HSTROP 21.6 pg/mL Normal 4.0-51.3 [facility] Comment on above: Result Comment: CUT- OFF POINTS HAVE BEEN ESTABLISHED BASED ON THE FOURTH UNIVERSAL DEFINITIONS OF MYOCARDIAL INFARCTION. THE UPPER REFERENCE LIMIT (URL) OF TROPONIN, DEFINED THE 99TH PERCENTILE OF cTnI DISTRIBUTION IN A REFERENCE POPULATION, HAS BEEN CONFIRMED THE DECISION THRESHOLD FOR TN DIAGNOSIS. Performed By: #### D DIM #### [facility] [address] [place] [address] Dr. Evangelist Chicas VANNA 41 ng/mL Normal 9-82 [facility] Comment on above: Performed By: #### D DIM #### [facility] [address] [place] [address] Dr. Evangelist Chicas CBC AUTO DIFFon 11-10-2022 BASO # 0.1 103/ul Normal 0.0-0.1 [facility] Comment on above: Performed By: #### B MP #### [facility] [address] [place] [address] Dr. Evangelist Chicas Basophils/100 WBC (Bld) 0.7 % Normal 0.2-2.0 [facility] Comment on above: Performed By: #### B MP #### [facility] [address] [place] [address] Dr. Evangelist Chicas EO # 0.1 103/ul Normal 0.0-0.7 [facility] Comment on above: Performed By: #### B MP #### [facility] [address] [address] [address] Evangelist Chicas Eosinophils/100 WBC (Bld) 1.1 % Normal 0.9-7.0 [facility] Comment on above: Performed By: #### B MP #### [facility] [address] [place] [address] Dr. Evangelist Chicas Erythrocyte distribution width (RBC) [Ratio] 12.8 % Normal 11.0-15.0 [facility] Comment on above: Performed By: #### B MP #### [facility] [address] [place] [address] Dr. Evangelist Chicas Hematocrit (Bld) [Volume fraction] 41.1 % Normal 36.0-48.0 [facility] Comment on above: Performed By: #### B MP #### [facility] [address] [place] [address] Dr. Evangelist Chicas Hemoglobin (Bld) [Mass/Vol] 13.2 g/dL Normal 12.0-16.0 [facility] Comment on above: Performed By: #### B MP #### [facility] [address] [place] [address] Dr. Evangelist Chicas IG # 0.02 10e3/ul Normal 0.00-0.03 [facility] Comment on above: Performed By: #### B MP #### [facility] [address] [place] [address] Dr. Evangelist Chicas IG % 0.3 % Normal 0.0-0.5 [facility] Comment on above: Performed By: #### B MP #### [facility] [address] [place] [address] Dr. Evangelist Chicas LYMPH # 0.7 103/ul Critically low 1.2-3.8 [facility] Comment on above: Performed By: #### B MP #### [facility] [address] [place] [address] Dr. Evangelist Chicas Lymphocytes/100 WBC (Bld) 9.5 % Critically low 20.5-60.0 [facility] Comment on above: Performed By: #### B MP #### [facility] [address] [place] [address] Dr. Evangelist Chicas MANUAL DIFF REQ NO Normal [facility] Comment on above: Performed By: #### B MP #### [facility] [address] [place] [address] Dr. Evangelist Chicas MCH (RBC) [Entitic mass] 29.6 pg Normal 26.7-34.0 [facility] Comment on above: Performed By: #### B MP #### [facility] [address] [place] [address] Dr. Evangelist Chicas MCHC (RBC) [Mass/Vol] 32.1 g/dL Normal 29.9-35.2 [facility] Comment on above: Performed By: #### B MP #### [facility] [address] [place] [address] Dr. Evangelist Chicas MCV (RBC) [Entitic vol] 92.2 fL Normal 81.0-99.0 [facility] Comment on above: Performed By: #### B MP #### [facility] [address] [place] [address] Dr. Evangelist Chicas MONO # 0.6 103/ul Normal 0.3-0.8 [facility] Comment on above: Performed By: #### B MP #### [facility] [address] [place] [address] Dr. Evangelist Chicas Monocytes/100 WBC (Bld) 8.1 % Normal 1.7-12.0 [facility] Comment on above: Performed By: #### B MP #### [facility] [address] [place] [address] Dr. Evangelist Chicas NEUT # 6.1 103/ul Normal 1.4-6.5 [facility] Comment on above: Performed By: #### B MP #### [facility] [address] [place] [address] Dr. Evangelist Chicas Neutrophils/100 WBC (Bld) 80.3 % Critically high 43.0-75.0 [facility] Comment on above: Performed By: #### B MP #### [facility] [address] [place] [address] Dr. Evangelist Chicas Platelet mean volume (Bld) [Entitic vol] 9.8 fL Normal 9.5-13.5 [facility] Comment on above: Performed By: #### B MP #### [facility] [address] [place], [place] [address] Dr. Evangelist Chicas PLT 180 103/ul Normal 150-450 [facility] Comment on above: Performed By: #### B MP #### [facility] [address] [id number] [address] Evangelist Chicas RBC 4.46 106/ul Normal 4.20-5.40 [facility] Comment on above: Performed By: #### B MP #### [facility] [address] [id number] [address] Evangelist Chicas WBC 7.6 103/ul Normal 4.0-11.0 [facility] Comment on above: Performed By: #### B MP #### [facility] [address] [place], [place] [id number] Dr. Evangelist Chicas CTA CHEST WO W [...] DEL ENRIQUE Date: 2022-11-10 17:30 Normal [facility] Covid-19 PCR (CVDTB)on SARS-CoV-2 (COVID-19) RNA SHENG+probe Ql (Unsp spec) Not detected Normal NOT DETECTED [facility] Comment on above: Result Comment: When diagnostic [...] for this test is supported by the [place] of Health and Human Service's declaration that [...] used). Performed By: #### B MP #### [facility] [address] [place] [address] Dr. Evangelist Chicas D-DIMERon 11-10-2022 D-DIMER 0.63 mg/L FEU Critically high <=0.59 [facility] Comment on above: Performed By: #### D DIM #### [facility] [address] [address] [address] Evangelist Chicas D-DIMER COMMENTS SEE BELOW Normal [facility] Comment on above: Result Comment: Incr eases [...] hospitalization. Performed By: #### D DIM #### [facility] [address] [place] [address] Dr. Evangelist Chicas ER URINE PROFILEon 3 Bilirubin Ql (U) Negative Normal NEGATIVE [facility] Comment on above: Performed By: #### U MICRO, ERUR #### [facility] [address] [place] [address] Dr. Evangelist Chicas Clarity (U) CLEAR Normal CLEAR [facility] Comment on above: Performed By: #### U MICRO, ERUR #### [facility] [address] [place] [address] Dr. Evangelist Chicas Color (U) LT. YELLOW Normal YELLOW [facility] Comment on above: Performed By: #### U MICRO, ERUR #### [facility] [address] [place] [address] Dr. Evangelist Chicas ERUAHD A micrscopic examination will be performed if indicated. Normal [facility] Comment on above: Performed By: #### U MICRO, ERUR #### [facility] [address] [place] [address] Dr. Evangelist Chicas Glucose Ql (U) Negative Normal NEGATIVE [facility] Comment on above: Performed By: #### U MICRO, ERUR #### [facility] [address] [place] [address] Dr. Evangelist Chicas Hemoglobin Ql (U) TRACE-INTACT Abnormal NEGATIVE [facility] Comment on above: Performed By: #### U MICRO, ERUR #### [facility] [address] [place] [address] Dr. Evangelist Chicas Ketones Ql (U) Negative Normal NEGATIVE [facility] Comment on above: Performed By: #### U MICRO, ERUR #### [facility] [address] [place] [address] Dr. Evangelist Chicas LEUKOCYTES Negative Normal NEGATIVE [facility] Comment on above: Performed By: #### U MICRO, ERUR #### [facility] [address] [place] [address] Dr. Evangelist Chicas Nitrite Ql (U) Negative Normal NEGATIVE [facility] Comment on above: Performed By: #### U MICRO, ERUR #### [facility] [address] [address] [address] Evangelist Chicas pH (U) 6.0 [pH] Normal 5-9 [facility] Comment on above: Performed By: #### U MICRO, ERUR #### [facility] [address] [address] [address] Evangelist Chicas SPEC GRAVITY 1.010 Normal 1.005-<=1.025 [facility] Comment on above: Performed By: #### U MICRO, ERUR #### [facility] [address] [place] [address] Dr. Evangelist Chicas UA PROTEIN Negative Normal NEGATIVE/ TRACE [facility] Comment on above: Performed By: #### U MICRO, ERUR #### [facility] [address] [place] [address] Dr. Evangelist Chicas UR MICRO IND INDICATED Normal [facility] Comment on above: Performed By: #### U MICRO, ERUR #### [facility] [address] [place] [address] Dr. Evangelist Chicas Urobilinogen Qn (U) 0.2 {Amalia'U}/dL Normal 0.2 - 1.0 [facility] Comment on above: Performed By: #### U MICRO, ERUR #### [facility] [address] [place] [address] Dr. Evangelist Chicas IN[facility]EN[facility] Normal [facility] Comment on above: Result Comment: Nega tive for Flu A protein angiten. Infection due to Flu A cannot be ruled out. Flu A angiten in the sample may be below the detection limit of the test. Performed By: #### D DIM #### [facility] [address] [place] [address] Dr. Evangelist Chicas INFLUBNEGH SEE BELOW Normal [facility] Comment on above: Result Comment: Nega tive for Flu B protein antigen. Infection due to Flu B cannot be ruled out. Flu B antigen in the sample may be below the detection limit of the test. Performed By: #### D DIM #### [facility] [address] [place] [address] Dr. Evangelist Chicas INFLUENZA A AG Negative Normal NEGATIVE SEE COMMENT [facility] Comment on above: Performed By: #### D DIM #### [facility] [address] [place] [address] Dr. Evangelist Chicas INFLUENZA B AG Negative Normal NEGATIVE SEE COMMENT [facility] Comment on above: Performed By: #### D DIM #### [facility] [address] [place] [address] Dr. Evangelist Chicas PROF 14(COMP METB)on 023 Albumin [Mass/Vol] 3.1 g/dL Critically low 3.4-5.0 Th [facility] Comment on above: Performed By: #### B MP #### [facility] [address] [place] [address] Dr. Evangelist Chicas Albumin/Globulin [Mass ratio] 0.7 {ratio} Normal [facility] Comment on above: Performed By: #### B MP #### [facility] [address] [place] [address] Dr. Evangelist Chicas ALP [Catalytic activity/Vol] 108 U/L Normal 46-116 [facility] Comment on above: Performed By: #### B MP #### [facility] [address] [place] [address] Dr. Evangelist Chicas ALT [Catalytic activity/Vol] 20 U/L Normal 14-59 [facility] Comment on above: Performed By: #### B MP #### [facility] [address] [place] [address] Dr. Evangelist Chicas Anion gap [Moles/Vol] 6.0 mmol/L Normal [facility] Comment on above: Performed By: #### B MP #### [facility] [address] [place] [address] Dr. Evangelist Chicas AST [Catalytic activity/Vol] 16 U/L Normal 15-37 [facility] Comment on above: Performed By: #### B MP #### [facility] [address] [address] [address] Evangelist Chicas Bilirubin [Mass/Vol] 0.6 mg/dL Normal 0.2-1.0 [facility] Comment on above: Performed By: #### B MP #### [facility] [address] [address] [address] Evangelist Chicas Calcium [Mass/Vol] 9.1 mg/dL Normal 8.5-10.1 [facility] [place] Comment on above: Performed By: #### B MP #### [facility] [address] [address] [address] Evangelist Chicas Chloride [Moles/Vol] 97 mmol/L Critically low 98-107 [facility] Comment on above: Performed By: #### B MP #### [facility] [address] [place] [address] Dr. Evangelist Chicas CO2 [Moles/Vol] 36.9 mmol/L Critically high 21.0-32.0 [facility] Comment on above: Performed By: #### B MP #### [facility] [address] [address] [address] Evangelist Chicas Creatinine [Mass/Vol] 0.71 mg/dL Normal 0.55-1.02 [facility] [facility] Comment on above: Performed By: #### B MP #### [facility] [address] [place] [address] Dr. Evangelist Chicas EGFR-AF DANISH >60 Normal >=60 [facility] Comment on above: Performed By: #### B MP #### [facility] [address] [place] [address] Dr. Evangelist Chicas EGFR-NON AF DANISH >60 Normal >=60 [facility] Comment on above: Performed By: #### B MP #### [facility] [address] [place] [address] Dr. Evangelist Chicas Globulin (S) [Mass/Vol] 4.4 g/dL Normal [facility] Comment on above: Performed By: #### B MP #### [facility] [address] [place] [address] Dr. Evangelist Chicas Glucose [Mass/Vol] 124 mg/dL Critically high 74-106 T [facility] Comment on above: Performed By: #### B MP #### [facility] [address] [address] [address] Evangelist Chicas Potassium [Moles/Vol] 3.9 mmol/L Normal 3.5-5.1 [facility] Comment on above: Performed By: #### B MP #### [facility] [address] [address] [address] Evangelist Chicas Protein [Mass/Vol] 7.5 g/dL Normal 6.4-8.2 [facility] Comment on above: Performed By: #### B MP #### [facility] [address] [address] [address] Evangelist Chicas Sodium [Moles/Vol] 136 mmol/L Normal 136-145 [facility] Comment on above: Performed By: #### B MP #### [facility] [address] [address] [address] Evangelist Chicas Urea nitrogen [Mass/Vol] 17.0 mg/dL Normal 7.0-18.0 [facility] Comment on above: Performed By: #### B MP #### [facility] [address] [place] [address] Dr. Evangelist Chicas Urea nitrogen/Creatinin e [Mass ratio] 23.9 mg/mg Normal [facility] Comment on above: Performed By: #### B MP #### [facility] [address] [address] [address] Evangelist Chicas URINE MICROSCOPIC ONLYon BACTERIA NONE SEEN Normal NONE SEEN [facility] Comment on above: Performed By: #### U MICRO, ERUR #### [facility] [address] [place] [address] Dr. Evangelist Chicas Bacteria identified Cx Nom (U) NOT INDICATED Normal [facility] Comment on above: Performed By: #### U MICRO, ERUR #### [facility] [address] [place] [address] Dr. Evangelist Chicas CAST NONE SEEN Normal NONE SEEN [facility] Comment on above: Performed By: #### U MICRO, ERUR #### [facility] [address] [address] [address] Evangelist Chicas Crystals LM Nom (Urine sed) NONE SEEN Normal NONE SEEN [facility] Comment on above: Performed By: #### U MICRO, ERUR #### [facility] [address] [place] [address] Dr. Evangelist Chicas Epithelial cells LM Ql (Urine sed) FEW Abnormal NONE SEEN /RARE [facility] Comment on above: Performed By: #### U MICRO, ERUR #### [facility] [address] [place] [address] Dr. Evangelist Chicas MUCOUS NONE SEEN Normal NONE SEEN [facility] Comment on above: Performed By: #### U MICRO, ERUR #### [facility] [address] [place] [address] Dr. Evangelist Chicas RBC 0-2 Normal 0-2 [facility] Comment on above: Performed By: #### U MICRO, ERUR #### [facility] [address] [place] [address] Dr. Evangelist Chicas WBC NONE SEEN Normal NONE SEEN [facility] Comment on above: Performed By: #### U MICRO, ERUR #### [facility] [address] [place] [address] Dr. Evangelist Chiacs XR CHEST 1 Von 11-10-2022 XR CHEST [...] by: JH JAIN Date: 2022-11-10 15:24 Normal [facility] Vital Signs Date Time Vital Sign Value Performing Clinician Faci lity 12-23-2023 13:24-0500 Body height 160 cm Mane Lee MD Work Phone: [facility] 12-23-2023 13:24-0500 Body mass index (BMI) [Ratio] 49.25 kg/m2 Mane Lee MD Work Phone: [facility] 12-23-2023 13:24-0500 Body temperature 97.3 [degF] Mane Lee MD Work Phone: [facility] 12-23-2023 13:24-0500 Body weight 126.1 kg Mane Lee MD Work Phone: [facility] 12-23-2023 13:24-0500 Diastolic blood pressure 80 mm[Hg] Mane Lee MD Work Phone: [facility] 12-23-2023 13:24-0500 Heart rate 96 /min Mane Lee MD Work Phone: [facility] 12-23-2023 13:24-0500 SaO2% (BldA) [Mass fraction] 96 % Mane Lee MD Work Phone: [facility] 12-23-2023 13:24-0500 Systolic blood pressure 140 mm[Hg] Mane Lee MD Work Phone: [facility] Healthcare Encounters Encounter Date Encounter Type Care Provider Facility Start: 01-22-2024 End: 01-22-2024 ambulatory MANE LEE Not Available Start: 12-29-2023 End: 12-30-2023 ambulatory Corine Frye MD Facility:[facility] Start: 12-23-2023 End: 12-23-2023 ambulatory MANE LEE Not Available Start: 12-23-2023 Bamboo flowsheet Mane Lee MD Work Phone: [facility] Start: 12-23-2023 Bamboo flowsheet Mane Lee MD Work Phone: [facility] Start: 12-23-2023 End: 12-23-2023 Office outpatient visit 25 minutes aMne Lee MD Work Phone: [facility] Comment on above: Essential hypertensi on, benign (CMS/HCC) (Primary Dx); Degenerative lumbar spinal stenosis; Lumbar disc herniation with radiculopathy; Leg edema; Chronic obstructive pulmonary disease, unspecified COPD type (CMS/HCC) Start: 12-10-2023 End: 12-10-2023 ambulatory Lakisha Shipman Facility:[facility] Start: 12-10-2023 End: 12-10-2023 ambulatory MD Mane Lee Work Phone: [facility] Work Phone: Start: 12-10-2023 End: 12-10-2023 Patient encounter procedure MD Mane Lee Work Phone: [facility] Work Phone: Start: 11-26-2023 End: 11-26-2023 ambulatory MANE LEE Not Available Start: 10-31-2023 End: 10-31-2023 ambulatory MANE LEE Not Available Start: 08-25-2023 End: 08-26-2023 ambulatory Corine Frye MD Facility:[facility] Start: 01-29-2023 End: 01-30-[address] MANE [...] Screening for malign ant neoplasm [facility] Start: 02-24-2024 End: 02-24-2024 Patient encounter procedure 02/24/2024 9:00 AM EDT Office Visit [facility] [address] [place] [id number] Mane Lee MD [address] [place] [phone] [facility] Start: 01-30-2024 Screening for malign ant neoplasm of breast Mammogram [facility] Start: 12-23-2023 End: 12-23-2023 Patient encounter procedure 12/23/2023 1:15 PM EST Office Visit [facility] [address] [place] [id number] Mane Lee MD [address] [place] [address] Arrived [facility] Comment on above: Arrived Start: 1993 Screening for malign ant neoplasm of cervix [facility] Start: 1984 Screening for malign ant neoplasm of cervix Pap Smear [facility] Start: 1963 Screening for malign ant neoplasm of colon [facility] Payers Date Payer Category Payer Self-pay 2023 Unknown [id number] 2023 Unknown [id number] 2022 Unknown [id number] 1963 Unknown [id number] 2.16.84 [id number] 1963 Unknown [id number] 2.16.84 [id number] 1963 Unknown [id number] 2.16. [id number] 1963 Unknown [id number] 2.16. [id number] 1963 Unknown [id number] 2.16.84 [id number] 1963 Unknown [id number] 2.16.84 [id number] 1963 Unknown [id number] 2.16.84 [id number] 1963 Unknown [id number] 2.16.840 .[id number] 1959 Unknown [id number] Unknown [id number] 2.16.8 [id number] Social History Date Type Detail Facility Tobacco smoking stat [facility] Unknown if ever smoked [facility] Work Phone: Start: 1965 Sex Assigned At Female F [facility] Start: 10-31-2023 Tobacco smoking stat [facility] Smokes tobacco daily [facility] History of [...] Facility Evaluation note No assessment information availa [facility] Work Phone: Evaluation note Note [...] and content) DATE CREATED AUTHOR 02/02/2023 [facility] DATE CREATED AUTHOR AUTHOR'S ORGANIZ ATION 12/19/2023 [facility] DATE CREATED AUTHOR AUTHOR'S ORGANIZ ATION 01/09/2024 [facility] DATE CREATED AUTHOR AUTHOR'S ORGANIZ ATION 01/23/2024 [facility] EPIC Care Teams (unrecognized sec tion and content) Team Status: Active Member Role Status Dates Mane Lee MD Primary Care Provider Active Team Status: Inactive Member Role Status Dates Mane Lee MD Primary Care Provider Active S tart: December 10, 2023 End: December 10, 2023 BERNICE Blanc Attending Provider Active Start: December 10, 2023 End: December 10, 2023 Automatic Toe Laster Relationship Specialty Start Date End Date Mane Lee MD [address] [place] [phone] PCP - General Family Medicine 12/23/23 Automatic Toe Laster Relationship Specialty Start Date End Date Mane Lee MD [address] [place] [address] PCP - General Family Medicine 12/23/23 [...] BE BASED ON THE PRIMARY CLINICAL RECORDS. [facility]. provides no warranty or guarantee of the accuracy or completeness of information in this document.
[2024-01-26 08:53] VITALS: BP 127/75; PULSE 82; RESP 14; TEMP 36.3; O2SAT 100
[2024-01-26 09:36] VITALS: BP 198/90; PULSE 93; RESP 18; O2SAT 93
[2024-01-26 09:39] VITALS: BP 183/93; PULSE 90; RESP 18; O2SAT 96
[2024-01-26] MEDS: BUPIVACAINE HCL 0.25% PF 25 MG/10 ML VIAL 8 ML INJ (09:40)
[2024-01-26] MEDS: LIDOCAINE HCL 2% PF 100 MG/5 ML VIAL 1.5 ML INJ (09:40)
--- NOTE | 2024-01-26 09:40 | W.PM.PROCNOT ---
Date of procedure: 01/26/24 Pre-op diagnosis: Lumbar spondylosis Post-op diagnosis: same as pre-op Procedure: Procedure: Bilateral L3-4, L4-5 medial branch block Medications: Bupivacaine 0.25% 6cc The patient was seen and examined in the preoperative holding area.? An informed consent was obtained and placed on the chart.? The patient was brought to the medical procedure unit and placed in the prone position.? A timeout was completed verifying correct patient, procedure site, positioning, plan, and special equipment.? Using aseptic technique, the needle was placed at left L3. Under direct fluoroscopic visualization a Quincke-tipped spinal needle was advanced to the junction of the superior articulating process with the transverse process at the designated medial branch segment.? Preceded by negative aspiration, the above-mentioned injectate was placed in 1 mL aliquots.? The procedure was repeated at left L4, 5.? The needle was removed and insertion site was covered. The same procedure, at the same levels, was completed on the right side. The patient was taken to the postprocedural recovery area and monitored for an appropriate length of time before found suitable for discharge in the company of a responsible adult. Anesthesia: Local Surgeon: Corine Frye Pathology: none sent Condition: stable Disposition: no change
== END 2024-01-26 09:43 | disposition home or self-care (01) ==
PROVIDERS: PCP Family Medicine; Visit Provider Anesthesiology
DX: M47.816 Spondylosis without myelopathy or radiculopathy, lumbar region (principal)
CPT/HCPCS: 64493; 64494

== ENCOUNTER 2024-02-04 09:03 | Outpatient (OUT) | payer BC, SELFPAY ==
--- NOTE | 2024-02-04 08:15 | P.CN_ITS ---
Consult Note: HPI Data of Consult Patient: known to practice within the last 3 years Requesting Physician: Rachael Robles NP Primary Care Provider: Mane Kearney MD Consult Narrative Reason for consult: f/u Narrative: Jazz Juares a pleasant 58 year old female presents for evaluation and management of chronic low back pain with NC. Today pain 9/10, increasing to 10/10, pain increased with standing walking, decreased with rest/lying. Patient has failed conservative measures and greater than 6 weeks of PT. Patient was evaluated by Dr Whitman office who would like her to try injection therapy before consideration of surgical intervention. Patient finding mild benefit from celebrex 200mg BID, flexeril 10mg TID, and duloxetine 60mg daily. Patient continues to have moderate to severe pain and decline in functional ability. Patient recently underwent Bilateral L3-4, L4-5 medial branch block with >80% improvement in pain and functional ability. cc:: CC: Rachael Robles NP Review of Systems ROS Status of ROS 10 or more systems reviewed and unremark able except as noted in history and below Musculoskeletal Reports: back pain PFSH PFS Medical History (Updated 12/25/23 @ 09:10 by Shruti Chowdary) Low back pain ?M54.50 - Low back pain, unspecified (ICD-10) Smoker ?F17.200 - Nicotine dependence, unspecified, uncomplicated (ICD-10) COPD (chronic obstructive pulmonary disease) ?J44.9 - Chronic obstructive pulmonary disease, unspecified (ICD-10) Hypertension ?I10 - Essential (primary) hypertension (ICD-10) Surgical History S/P carpal tunnel release ?Z98.890 - Other specified postprocedural states (ICD-10) S/P endometrial ablation ?Z98.890 - Other specified postprocedural states (ICD-10) Meds Home Medications and Allergies Home Medications ?Medication ?Instructions ?Recorded ?Confirmed ?Type amlodipine 5 mg tablet 5 mg PO DAILY 08/28/23 01/26/24 History celecoxib 200 mg capsule 200 mg PO Q12H PRN pain 08/28/23 01/26/24 History cholecalciferol (vitamin D3) 50 50 mcg PO DAILY 08/28/23 01/26/24 History mcg (2,000 unit) tablet losartan 100 1 tab PO DAILY 08/28/23 01/26/24 History mg-hydrochlorothiazide 25 mg tablet umeclidinium 62.5 mcg-vilanterol 1 inh inhalation Q24H 08/28/23 01/26/24 History 25 mcg/actuation powdr for inhalation (Anoro Ellipta) duloxetine 60 mg capsule,delayed 60 mg PO DAILY #30 caps 10/09/23 01/26/24 Rx release albuterol sulfate 90 mcg/actuation inhalation 12/25/23 History aerosol inhaler zonisamide 50 mg capsule 50 mg PO .HS 12/25/23 01/26/24 History cyclobenzaprine 10 mg tablet 10 mg PO TID 01/14/24 01/26/24 History Allergies Allergy/AdvReac Type Severity Reaction Status Date / Time ciprofloxacin [From Cipro] Allergy Verified 01/26/24 08:50 Exam Constitutional Documenting provider has reviewed patient's vital signs: yes Common normals: no apparent distress, oriented x3, healthy appearing, alert and well nourished General appearance: cooperative HENMT Common normals: normocephalic, hearing grossly normal bilaterally and moist oral mucous membranes Head and scalp: normocephalic Eye Common normals: PERRL Pupil: PERRL Neck & C-Spine Common normals: full ROM General: normal visual inspection Chest Common normals: inspection of chest normal Respiratory Common normals: normal respiratory effort, no retractions and no use of accessory muscles Back & Pelvis Lumbar spine/lower back: ROM limited, pain with ROM and straight leg raise negative bilaterally Other: lumbar facet loading positive at L3-4 L4-5 no radiculopathy on exam sensation intact BLE strength 5/5 in BLE pain increased with standing and walking, decreased with forward flexion and lying down. Extremity Common normals: normal to inspection and full ROM Neuro Common normals: oriented x3, CN's II-XII intact bilaterally, moves all extrem ities, no focal motor deficits, no sensory deficits noted and deep tendon reflexes 2+ bilaterally Sensorium/orientation: alert Gait (neuro): antalgic Motor exam: strength 5/5 throughout and no movement abnormalities noted Psych Common normals: mental status grossly normal, thought process normal, cooperative, affect normal, speech normal and activity/motor behavior normal Speech: normal speech Thought process: normal thought process Results Additional Findings Additional findings: If on a controlled substance or opioids, I have checked an [place] report on this patient and there are no aberrancies noted in the prescribing history.??If on a controlled substance or opioid a drug screen was completed and reviewed within the last year, and if there has not been a drug screen completed we ordered one today to monitor higher risk, state monitored pain medication use. As part of providing excellent, safe, comprehensive care, the following was completed at our patient's visit: 1. A medication reconciliation and review to ensure accurate knowledge of current/active medications, including asking our patients to inform us about any [id number] medications or herbal remedies/nutritional supplements/alternative remedies. 2. A review to specifically ensure our patients have had annual screening for screening for depression, screening for tobacco use, and screening for unhealthy alcohol use. For concerning screenings had a discussion with the patient, provided patient education, and recommended follow-up with primary care provider when appropriate. If patient noted with a risk of falling, they received education on strength, gait, and balance training to prevent future risk of falling. Assessment and Plan Assessment and Plan (1) Lumbar spondylosis: Assessment and Plan: The patient has had over 3 months of moderate to severe low back pain with functional impairment and inadequate response to conservative care including NSAIDS (unless there are contraindication such as concurrent blood thinners), multiple oral or topical pain medications, and home exercise program/physical therapy.? Patient has completed >6 weeks of guided home exercise program and/or formal physical therapy program without relief of their symptoms.? I have reviewed the imaging of the lumbar spine and no red flags were identified.? The imaging reveals radiographic findings consistent with lumbar spondylosis. The Oswestry Disability Index was completed, and the patient scored a %.? The patient noted the following:?? {[id number]}? We discussed the risks and benefits of the procedure with the patient, and we are NOT planning on using sedation as outlined in the guidelines from Medicare unless there is a documented reason that sedation would be strongly recommended.?? The procedure will be completed with fluoroscopic guidance.? (2) Lumbar stenosis with neurogenic claudication: Assessment and Plan: mild relief of NC symptoms from prior ASHWINI (3) Myofascial pain: Plan bilateral L3-4 L4-5 facet medial branch blocks x2 working towards thermal RFA. Dr Frye reviewed MRI imaging of lumbar spine, with mild stenosis she is not a candidate for vertiflex at this point. Can consider spinal cord stimulator in the future if needed. Smoking cessation discussed increased zonegram 100mg HS continue celebrex 200mg BID, cymbalta 60mg daily, flexeril 10mg TID denies side effects, reporting improvement f/u 1 week after injection.
--- OUTSIDE RECORDS SUMMARY | 2024-02-04 09:26 | XMS_ITS | CCD ---
Author Organization [facility] Care Team Providers Care Cable Maker Name Role Phone JESUS, DR MANE Avina Primary Care Unavailable EDDIE ., DR VAMSHI Correa Consulting Unavailable JESUS, DR MANE Avina Admitting Unavailable JESUS, DR MANE Avina Attending Unavailable SSUY, DR JH Hunter Consulting Unavailable JESUS, DR MANE Avina Consulting Unavailable HI ., MR BUCKLEY Consulting Unavailable STRAWSER, DEL Consulting Unavailable CHOU, MALCOLM Consulting Unavailable JESUS, DR MANE Avina Admitting Unavailable JESUS, DR MANE Avina Attending Unavailable JESUS, DR MANE Avina Primary Care Unavailable KENT, DR NIA Uriostegui Consulting Unavailable JESUS, DR MANE Avina Consulting Unavailable MD Mane Lee Primary Care Provider BERNICE Shipman Attending Provider Mane Lee MD Primary Care Provider JESUS, MANE Attending Unavailable CHANGEREDale, MANE Attending Unavailable JESUS, MANE Attending Unavailable JESUS, MANE Attending Unavailable Melva BACK, Corine Puentes Attending Unavailable Melva BACK, Corine Puentes Attending Unavailable Melva BACK, Corine Puentes Attending Unavailable Lakisha Shipman Attending Unavailable Lakisha Shipman Admitting Unavailable Mane Lee Primary Care Unavailable Allergies Allergy Classification Reported Allergen(s) Allergy Type Date of Onset Reaction(s) Facility (1 source) Ciprofloxacin Drug Allergy 10-19-2014 [facility] Repository (3 sources) Ciprofloxacin Drug Allergy 10-31-2023 [facility] (1 source) Ciprofloxacin Drug Allergy 12-10-2023 [facility] Repository Medications Current Medications Medication Drug Class(es) Dates Sig (Normalized) Sig (Original) [id number] 200 actuat albuterol 0.09 mg/actuat metered dose [...] 10-31-2023 Chronic Other aftercare (1 source) Other prison (current) drug therapy; 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: [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 THERAPY] Onset: 11-20-2022 Episodic Other aftercare (1 source) 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; 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: [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 CURRNT USE OPIATE ANALGES] Onset: 11-20-2022 [...] 12-10-2023 XR lumbar spine 6V w bending [facility] [place] [address] XRay Report Signed Patient: Lawrence Harrison MR#: [id number] : 1965 Acct:[id number] Age/Sex: 58 / F ADM Date: 12/10/23 Loc: XD Room: Type: [facility] Attending Dr: Lakisha AMBROSIOC Copies to: BERNICE [...] Smith Jr., D.O.12/10/2023 3:58 PM Dictation Location: [place] [address] Transcribed By: [facility] 12/10/23 1558 Dictated By: Owen Smith Jr DO 12/10/23 1557 Signed By: 12/10/23 1558 Normal [facility] HEMOGLOBINon 01-29-2023 Hemoglobin (Bld) [Mass/Vol] 14.6 g/dL Normal 12.0-16.0 [facility] Comment on above: Performed By: #### H GB #### [facility] [address] [place] [address] Dr. Evangelist Chicas MG MAMM SCREEN 3D MANJIT CADon 01-29-2023 MG MAMM SCREEN 3D MANJIT CAD Patient: LAWRENCE HARRISON Exam Date: 01/29/2023 : 1965 Gender:F Ordering : DR MANE LEE . Admission #: [id number] Family : Order #: [id number] CLICK HERE TO VIEW EXAM RADIOLOGY REPORT [...] rectal cancer at age 73. LOCATION: [facility] BREAST COMPOSITION: Scattered areas fibroglandular [...] MD on 01/29/2023 at 09:29 Normal [facility] CBC AUTO DIFFon 11-14-2022 BASO # 0.0 103/ul Normal 0.0-0.1 [facility] Comment on above: Performed By: #### B MP #### [facility] [address] [place] [address] Dr. Evangelist Chicas Basophils/100 WBC (Bld) 0.1 % Critically low 0.2-2.0 [facility] Comment on above: Performed By: #### B MP #### [facility] [address] [place] [address] Dr. Evangelist Chicas EO # 0.0 103/ul Normal 0.0-0.7 [facility] Comment on above: Performed By: #### B MP #### [facility] [address] [place] [address] [address] Evangelist Chicas Eosinophils/100 WBC (Bld) 0.1 % Critically low 0.9-7.0 [facility] Comment on above: Performed By: #### B MP #### [facility] [address] [place] [address] Dr. Evangelist Chicas Erythrocyte distribution width (RBC) [Ratio] 13.1 % Normal 11.0-15.0 [facility] Comment on above: Performed By: #### B MP #### [facility] [address] [place] [address] Dr. Evangelist Chicas Hematocrit (Bld) [Volume fraction] 41.4 % Normal 36.0-48.0 [facility] Comment on above: Performed By: #### B MP #### [facility] [address] [place] [address] Dr. Evangelist Chicas Hemoglobin (Bld) [Mass/Vol] 13.0 g/dL Normal 12.0-16.0 [facility] Comment on above: Performed By: #### B MP #### [facility] [address] [place] [address] Dr. Evangelist Chicas IG # 0.03 10e3/ul Normal 0.00-0.03 [facility] Comment on above: Performed By: #### B MP #### [facility] [address] [place] [address] Dr. Evangelist Chicas IG % 0.4 % Normal 0.0-0.5 [facility] Comment on above: Performed By: #### B MP #### [facility] [address] [place] [address] Dr. Evangelist Chicas LYMPH # 0.4 103/ul Critically low 1.2-3.8 [facility] Comment on above: Performed By: #### B MP #### [facility] [address] [place] [address] Dr. Evangelist Chicas Lymphocytes/100 WBC (Bld) 4.7 % Critically low 20.5-60.0 [facility] Comment on above: Performed By: #### B MP #### [facility] [address] [place] [address] [address] Evangelist Chicas MANUAL DIFF REQ NO Normal [facility] Comment on above: Performed By: #### B MP #### [facility] [address] [address] [address] Evangelist Chicas MCH (RBC) [Entitic mass] 29.1 pg Normal 26.7-34.0 [facility] Comment on above: Performed By: #### B MP #### [facility] [address] [place] [address] [address] Evangelist Chicas MCHC (RBC) [Mass/Vol] 31.4 g/dL Normal 29.9-35.2 [facility] Comment on above: Performed By: #### B MP #### [facility] [address] [place] [address] Dr. Evangelist Chicas MCV (RBC) [Entitic vol] 92.8 fL Normal 81.0-99.0 [facility] Comment on above: Performed By: #### B MP #### [facility] [address] [place] [address] Dr. Evangelist Chicas MONO # 0.1 103/ul Critically low 0.3-0.8 [facility] Comment on above: Performed By: #### B MP #### [facility] [address] [place] [address] Dr. Evangelist Chicas Monocytes/100 WBC (Bld) 1.8 % Normal 1.7-12.0 [facility] Comment on above: Performed By: #### B MP #### [facility] [address] [place] [address] Dr. Evangelist Chicas NEUT # 6.8 103/ul Critically high 1.4-6.5 [facility] Comment on above: Performed By: #### B MP #### [facility] [address] [place] [address] Dr. Evangelist Chicas Neutrophils/100 WBC (Bld) 92.9 % Critically high 43.0-75.0 [facility] Comment on above: Performed By: #### B MP #### [facility] [address] [address] [address] Evangelist Chicas Platelet mean volume (Bld) [Entitic vol] 11.3 fL Normal 9.5-13.5 [facility] Comment on above: Performed By: #### B MP #### [facility] [address] [place] [address] Dr. Evangelist Chicas PLT 109 103/ul Critically low 150-450 [facility] Comment on above: Performed By: #### B MP #### [facility] [address] [place] [address] [address] Evangelist Chicas RBC 4.46 106/ul Normal 4.20-5.40 [facility] Comment on above: Performed By: #### B MP #### [facility] [address] [place] [address] Dr. Evangelist Chicas WBC 7.4 103/ul Normal 4.0-11.0 [facility] Comment on above: Performed By: #### B MP #### [facility] [address] [place] [address] Dr. Evangelist Chicas PROF CHEM 8 (BAS METB)on Anion gap [Moles/Vol] 11.8 mmol/L Normal [facility] Comment on above: Performed By: #### B MP #### [facility] [address] [place] [address] Dr. Evangelist Chicas Calcium [Mass/Vol] 9.3 mg/dL Normal 8.5-10.1 [facility] Comment on above: Performed By: #### B MP #### [facility] [address] [place] [address] Dr. Evangelist Chicas Chloride [Moles/Vol] 99 mmol/L Normal 98-107 [facility] Comment on above: Performed By: #### B MP #### [facility] [address] [place] [address] Dr. Evangelist Chicsa CO2 [Moles/Vol] 31.6 mmol/L Normal 21.0-32.0 [facility] Comment on above: Performed By: #### B MP #### [facility] [address] [place] [address] Dr. Evangelist Chicas Creatinine [Mass/Vol] 0.75 mg/dL Normal 0.55-1.02 [facility] Comment on above: Performed By: #### B MP #### [facility] [address] [place] [address] Dr. Evangelist Chicas EGFR-AF GUYANESE >60 Normal >=60 [facility] Comment on above: Performed By: #### B MP #### [facility] [address] [place] [address] Dr. Evangelist Chicas EGFR-NON AF GUYANESE >60 Normal >=60 [facility] Comment on above: Performed By: #### B MP #### [facility] [address] [place] [address] Dr. Evangelist Chicas Glucose [Mass/Vol] 162 mg/dL Critically high 74-106 [facility] Comment on above: Performed By: #### B MP #### [facility] [address] [place] [address] Dr. Evangelits Chicas Potassium [Moles/Vol] 4.4 mmol/L Normal 3.5-5.1 [facility] Comment on above: Performed By: #### B MP #### [facility] [address] [place] [address] Dr. Evangelist Chicas Sodium [Moles/Vol] 138 mmol/L Normal 136-145 [facility] Comment on above: Performed By: #### B MP #### [facility] [address] [place] [address] Dr. Evangelist Chicas Urea nitrogen [Mass/Vol] 32.0 mg/dL Critically high 7.0-18.0 [facility] Comment on above: Performed By: #### B MP #### [facility] [address] [place] [address] Dr. Evangelist Chicas Urea nitrogen/Creatinin e [Mass ratio] 42.7 mg/mg Normal [facility] Comment on above: Performed By: #### B MP #### [facility] [address] [place] [address] Dr. Evangelist Chicas CBC AUTO DIFFon 11-13-2022 BASO # 0.0 103/ul Normal 0.0-0.1 [facility] Comment on above: Performed By: #### C BC #### [facility] [address] [place] [address] Dr. Evangelist Chicas Basophils/100 WBC (Bld) 0.1 % Critically low 0.2-2.0 [facility] Comment on above: Performed By: #### C BC #### [facility] [address] [place] [address] Dr. Evangelist Chicas EO # 0.0 103/ul Normal 0.0-0.7 [facility] Comment on above: Performed By: #### C BC #### [facility] [address] [place] [address] Dr. Evangelist Chicas Eosinophils/100 WBC (Bld) 0.0 % Critically low 0.9-7.0 [facility] Comment on above: Performed By: #### C BC #### [facility] [address] [place] [address] Dr. Evangelist Chicas Erythrocyte distribution width (RBC) [Ratio] 12.9 % Normal 11.0-15.0 [facility] Comment on above: Performed By: #### C BC #### [facility] [address] [place] [address] Dr. Evangelist Chicas Hematocrit (Bld) [Volume fraction] 39.0 % Normal 36.0-48.0 [facility] Comment on above: Performed By: #### C BC #### [facility] [address] [place] [address] Dr. Evangelist Chicas Hemoglobin (Bld) [Mass/Vol] 12.3 g/dL Normal 12.0-16.0 [facility] Comment on above: Performed By: #### C BC #### [facility] [address] [place] [address] Dr. Evangelist Chicas IG # 0.04 10e3/ul Critically high 0.00-0.03 [facility] Comment on above: Performed By: #### C BC #### [facility] [address] [place] [address] Dr. Evangelist Chicas IG % 0.4 % Normal 0.0-0.5 [facility] Comment on above: Performed By: #### C BC #### [facility] [address] [place] [address] Dr. Evangelist Chicas LYMPH # 0.5 103/ul Critically low 1.2-3.8 [facility] Comment on above: Performed By: #### C BC #### [facility] [address] [place] [address] Dr. Evangelist Chicas Lymphocytes/100 WBC (Bld) 4.5 % Critically low 20.5-60.0 [facility] Comment on above: Performed By: #### C BC #### [facility] [address] [place] [address] Dr. Evangelist Chicas MANUAL DIFF REQ NO Normal [facility] Comment on above: Performed By: #### C BC #### [facility] [address] [place] [address] Dr. Evangelist Chicas MCH (RBC) [Entitic mass] 29.7 pg Normal 26.7-34.0 [facility] Comment on above: Performed By: #### C BC #### [facility] [address] [place] [address] Dr. Evangelist Chicas MCHC (RBC) [Mass/Vol] 31.5 g/dL Normal 29.9-35.2 [facility] Comment on above: Performed By: #### C BC #### [facility] [address] [place] [address] Dr. Evangelist Chicas MCV (RBC) [Entitic vol] 94.2 fL Normal 81.0-99.0 [facility] Comment on above: Performed By: #### C BC #### [facility] [address] [place] [address] Dr. Evangelist Chicas MONO # 0.2 103/ul Critically low 0.3-0.8 [facility] Comment on above: Performed By: #### C BC #### [facility] [address] [place] [address] Dr. Evangelist Chicas Monocytes/100 WBC (Bld) 1.5 % Critically low 1.7-12.0 [facility] Comment on above: Performed By: #### C BC #### [facility] [address] [place] [address] Dr. Evangelist Chicas NEUT # 10.5 103/ul Critically high 1.4-6.5 [facility] Comment on above: Performed By: #### C BC #### [facility] [address] [place] [address] Dr. Evangelist Chicas Neutrophils/100 WBC (Bld) 93.5 % Critically high 43.0-75.0 [facility] Comment on above: Performed By: #### C BC #### [facility] [address] [place] [address] Dr. Evangelist Chicas Platelet mean volume (Bld) [Entitic vol] 10.4 fL Normal 9.5-13.5 [facility] Comment on above: Performed By: #### C BC #### [facility] [address] [place] [address] Dr. Evangelist Chicas PLT 169 103/ul Normal 150-450 [facility] Comment on above: Performed By: #### C BC #### [facility] [address] [place] [address] Dr. Evangelist Chicas RBC 4.14 106/ul Critically low 4.20-5.40 [facility] Comment on above: Performed By: #### C BC #### [facility] [address] [place] [address] Dr. Evangelist Chicas WBC 11.2 103/ul Critically high 4.0-11.0 [facility] Comment on above: Performed By: #### C BC #### [facility] [address] [place] [address] Dr. Evangelist Chicas CULTURE SPUTUMon 11-13-2022 CULTURE SPUTUM Culture Observations : NORMAL RESPIRATORY SHAINA. Normal [facility] Comment on above: Performed By: #### B MP #### [facility] [address] [place] [address] Dr. Evangelist Chicas PROF CHEM 8 (BAS METB)on Anion gap [Moles/Vol] 9.2 mmol/L Normal [facility] Comment on above: Performed By: #### D DIM #### [facility] [address] [address] [address] Evangelist Chicas Calcium [Mass/Vol] 9.1 mg/dL Normal 8.5-10.1 [facility] Comment on above: Performed By: #### D DIM #### [facility] [address] [address] [address] Evangelist Chicas Chloride [Moles/Vol] 100 mmol/L Normal 98-107 [facility] Comment on above: Performed By: #### D DIM #### [facility] [address] [address] [address] Evangelist Chicas CO2 [Moles/Vol] 33.8 mmol/L Critically high 21.0-32.0 [facility] Comment on above: Performed By: #### D DIM #### [facility] [address] [place] [address] Dr. Evangelist Chicas Creatinine [Mass/Vol] 0.85 mg/dL Normal 0.55-1.02 [facility] Comment on above: Performed By: #### D DIM #### [facility] [address] [place] [address] Dr. Evangelist Chicas EGFR-AF GUYANESE >60 Normal >=60 [facility] Comment on above: Performed By: #### D DIM #### [facility] [address] [address] [address] Evangelist Chicas EGFR-NON AF GUYANESE >60 Normal >=60 [facility] Comment on above: Performed By: #### D DIM #### [facility] [address] [address] [address] Evangelist Chicas Glucose [Mass/Vol] 151 mg/dL Critically high 74-106 [facility] Comment on above: Performed By: #### D DIM #### [facility] [address] [place] [address] Dr. Evangelist Chicas Potassium [Moles/Vol] 4.0 mmol/L Normal 3.5-5.1 [facility] Comment on above: Performed By: #### D DIM #### [facility] [address] [place] [address] Dr. Evangelist Chicas Sodium [Moles/Vol] 139 mmol/L Normal 136-145 [facility] Comment on above: Performed By: #### D DIM #### [facility] [address] [place] [address] Dr. Evangelist Chicas Urea nitrogen [Mass/Vol] 29.0 mg/dL Critically high 7.0-18.0 [facility] Comment on above: Performed By: #### D DIM #### [facility] [address] [place] [address] Dr. Evangelist Chicas Urea nitrogen/Creatinin e [Mass ratio] 34.1 mg/mg Normal [facility] Comment on above: Performed By: #### D DIM #### [facility] [address] [place] [address] Dr. Evangelist Chicas CBC AUTO DIFFon 11-12-2022 BASO # 0.0 103/ul Normal 0.0-0.1 [facility] Comment on above: Performed By: #### C BC #### [facility] [address] [place] [address] Dr. Evangelist Chicas Basophils/100 WBC (Bld) 0.1 % Critically low 0.2-2.0 [facility] Comment on above: Performed By: #### C BC #### [facility] [address] [place] [address] Dr. Evangelist Chicas EO # 0.0 103/ul Normal 0.0-0.7 [facility] Comment on above: Performed By: #### C BC #### [facility] [address] [place] [address] Dr. Evangelist Chicas Eosinophils/100 WBC (Bld) 0.0 % Critically low 0.9-7.0 [facility] Comment on above: Performed By: #### C BC #### [facility] [address] [place] [address] Dr. Evangelist Chicas Erythrocyte distribution width (RBC) [Ratio] 12.8 % Normal 11.0-15.0 [facility] Comment on above: Performed By: #### C BC #### [facility] [address] [address] [address] Evangelist Chicas Hematocrit (Bld) [Volume fraction] 41.5 % Normal 36.0-48.0 [facility] Comment on above: Performed By: #### C BC #### [facility] [address] [address] [address] Evangelist Chicas Hemoglobin (Bld) [Mass/Vol] 13.0 g/dL Normal 12.0-16.0 [facility] Comment on above: Performed By: #### C BC #### [facility] [address] [address] [address] Evangelist Chicas IG # 0.04 10e3/ul Critically high 0.00-0.03 [facility] Comment on above: Performed By: #### C BC #### [facility] [address] [address] [address] Evangelist Chicas IG % 0.3 % Normal 0.0-0.5 [facility] Comment on above: Performed By: #### C BC #### [facility] [address] [address] [address] Evangelist Chicas LYMPH # 0.5 103/ul Critically low 1.2-3.8 [facility] Comment on above: Performed By: #### C BC #### [facility] [address] [address] [address] Evangelist Chicas Lymphocytes/100 WBC (Bld) 3.7 % Critically low 20.5-60.0 [facility] Comment on above: Performed By: #### C BC #### [facility] [address] [address] [address] Evangelist Chicas MANUAL DIFF REQ NO Normal [facility] Comment on above: Performed By: #### C BC #### [facility] [address] [address] [address] Evangelist Chicas MCH (RBC) [Entitic mass] 29.5 pg Normal 26.7-34.0 [facility] Comment on above: Performed By: #### C BC #### [facility] [address] [address] [address] Evangelist Chicas MCHC (RBC) [Mass/Vol] 31.3 g/dL Normal 29.9-35.2 [facility] Comment on above: Performed By: #### C BC #### [facility] [facility] [address] [address] [address] Evangelist Chicas MCV (RBC) [Entitic vol] 94.3 fL Normal 81.0-99.0 [facility] Comment on above: Performed By: #### C BC #### [facility] [address] [address] [address] Evangelist Chicas MONO # 0.2 103/ul Critically low 0.3-0.8 [facility] Comment on above: Performed By: #### C BC #### [facility] [address] [place] [address] Dr. Evangelist Chicas Monocytes/100 WBC (Bld) 1.3 % Critically low 1.7-12.0 [facility] Comment on above: Performed By: #### C BC #### [facility] [address] [place] [address] Dr. Evangelist Chicas NEUT # 12.4 103/ul Critically high 1.4-6.5 [facility] Comment on above: Performed By: #### C BC #### [facility] [address] [place] [address] Dr. Evangelist Chicas Neutrophils/100 WBC (Bld) 94.6 % Critically high 43.0-75.0 [facility] Comment on above: Performed By: #### C BC #### [facility] [address] [place] [address] Dr. Evangelist Chicas Platelet mean volume (Bld) [Entitic vol] 9.9 fL Normal 9.5-13.5 [facility] Comment on above: Performed By: #### C BC #### [facility] [address] [address] [address] Evangelist Chicas PLT 189 103/ul Normal 150-450 [facility] Comment on above: Performed By: #### C BC #### [facility] [address] [place], [place] [address] Dr. Evangelist Chicas RBC 4.40 106/ul Normal 4.20-5.40 [facility] Comment on above: Performed By: #### C BC #### [facility] [address] [place], [place] [address] Dr. Evangelist Chicas WBC 13.1 103/ul Critically high 4.0-11.0 [facility] Comment on above: Performed By: #### C BC #### [facility] [address] [place], [place] [address] Dr. Evangelist Chicas ECHOCARDIO M/2D COMPLETEon 0 11-12-2022 ECHOCARDIO M/2D COMPLETE Patient: LAWRENCE HARRISON Exam Date: 11/12/2022 : 1965 Gender:F Ordering : DR MANE LEE . Admission #: [id number] Family : DR VAMSHI MORGAN . Order #: [id number] CLICK HERE TO VIEW EXAM ECHOCARDIOGRAM REPORT [...] M.D. on 11/12/2022 at 13:56 Normal [facility] PROF CHEM 8 (BAS METB)on Anion gap [Moles/Vol] 10.2 mmol/L Normal [facility] Comment on above: Performed By: #### B MP #### [facility] [address] [address] [address] Evangelist Chicas Calcium [Mass/Vol] 9.2 mg/dL Normal 8.5-10.1 [facility] Comment on above: Performed By: #### B MP #### [facility] [address] [address] [address] Evangelist Chicas Chloride [Moles/Vol] 99 mmol/L Normal 98-107 [facility] Comment on above: Performed By: #### B MP #### [facility] [address] [address] [address] Evangelist Chicas CO2 [Moles/Vol] 31.5 mmol/L Normal 21.0-32.0 [facility] Comment on above: Performed By: #### B MP #### [facility] [address] [place] [address] Dr. Evangelist Chicas Creatinine [Mass/Vol] 0.87 mg/dL Normal 0.55-1.02 [facility] Comment on above: Performed By: #### B MP #### [facility] [address] [address] [address] Evangelist Chicas EGFR-AF GUYANESE >60 Normal >=60 [facility] Comment on above: Performed By: #### B MP #### [facility] [address] [address] [address] Evangelist Chicas EGFR-NON AF GUYANESE >60 Normal >=60 [facility] Comment on above: Performed By: #### B MP #### [facility] [address] [place] [address] Dr. Evangelist Chicas Glucose [Mass/Vol] 168 mg/dL Critically high 74-106 [facility] Comment on above: Performed By: #### B MP #### [facility] [address] [address] [address] Evangelist Chicas Potassium [Moles/Vol] 3.7 mmol/L Normal 3.5-5.1 [facility] Comment on above: Performed By: #### B MP #### [facility] [address] [address] [address] Evangelist Chicas Sodium [Moles/Vol] 137 mmol/L Normal 136-145 [facility] Comment on above: Performed By: #### B MP #### [facility] [address] [place] [address] Dr. Evangelist Chicas Urea nitrogen [Mass/Vol] 28.0 mg/dL Critically high 7.0-18.0 [facility] Comment on above: Performed By: #### B MP #### [facility] [address] [place] [address] Dr. Evangelist Chicas Urea nitrogen/Creatinin e [Mass ratio] 32.2 mg/mg Normal [facility] Comment on above: Performed By: #### B MP #### [facility] [address] [place] [address] Dr. Evangelist Chicas CBC AUTO DIFFon 11-11-2022 BASO # 0.0 103/ul Normal 0.0-0.1 [facility] Comment on above: Performed By: #### C BC #### [facility] [address] [place] [address] Dr. Evangelist Chicas Basophils/100 WBC (Bld) 0.2 % Normal 0.2-2.0 [facility] Comment on above: Performed By: #### C BC #### [facility] [address] [place] [address] Dr. Evangelist Chicas EO # 0.0 103/ul Normal 0.0-0.7 [facility] Comment on above: Performed By: #### C BC #### [facility] [address] [place] [address] Dr. Evangelist Chicas Eosinophils/100 WBC (Bld) 0.0 % Critically low 0.9-7.0 [facility] Comment on above: Performed By: #### C BC #### [facility] [address] [place] [address] Dr. Evangelist Chicas Erythrocyte distribution width (RBC) [Ratio] 12.7 % Normal 11.0-15.0 [facility] Comment on above: Performed By: #### C BC #### [facility] [address] [place] [address] Dr. Evangelist Chicas Hematocrit (Bld) [Volume fraction] 41.7 % Normal 36.0-48.0 [facility] Comment on above: Performed By: #### C BC #### [facility] [address] [place] [address] Dr. Evangelist Chicas Hemoglobin (Bld) [Mass/Vol] 13.0 g/dL Normal 12.0-16.0 [facility] Comment on above: Performed By: #### C BC #### [facility] [address] [place] [address] Dr. Evangelist Chicas IG # 0.03 10e3/ul Normal 0.00-0.03 [facility] Comment on above: Performed By: #### C BC #### [facility] [address] [place] [address] Dr. Evangelist Chicas IG % 0.5 % Normal 0.0-0.5 [facility] Comment on above: Performed By: #### C BC #### [facility] [address] [place] [address] Dr. Evangelist Chicas LYMPH # 0.4 103/ul Critically low 1.2-3.8 [facility] Comment on above: Performed By: #### C BC #### [facility] [address] [place] [address] Dr. Evangelist Chicas Lymphocytes/100 WBC (Bld) 5.8 % Critically low 20.5-60.0 [facility] Comment on above: Performed By: #### C BC #### [facility] [address] [place] [address] Dr. Evangelist Chicas MANUAL DIFF REQ NO Normal [facility] Comment on above: Performed By: #### C BC #### [facility] [address] [address] [address] Evangelist Chicas MCH (RBC) [Entitic mass] 29.3 pg Normal 26.7-34.0 [facility] Comment on above: Performed By: #### C BC #### [facility] [address] [place] [address] Dr. Evangelist Chicas MCHC (RBC) [Mass/Vol] 31.2 g/dL Normal 29.9-35.2 [facility] Comment on above: Performed By: #### C BC #### [facility] [address] [place] [address] Dr. Evangelist Chicas MCV (RBC) [Entitic vol] 93.9 fL Normal 81.0-99.0 [facility] Comment on above: Performed By: #### C BC #### [facility] [address] [place] [address] Dr. Evangelist Chicas MONO # 0.0 103/ul Critically low 0.3-0.8 [facility] Comment on above: Performed By: #### C BC #### [facility] [address] [place] [address] Dr. Evangelist Chicas Monocytes/100 WBC (Bld) 0.6 % Critically low 1.7-12.0 [facility] Comment on above: Performed By: #### C BC #### [facility] [address] [place] [address] Dr. Evangelist Chicas NEUT # 6.0 103/ul Normal 1.4-6.5 [facility] Comment on above: Performed By: #### C BC #### [facility] [address] [place] [address] Dr. Evangelist Chicas Neutrophils/100 WBC (Bld) 92.9 % Critically high 43.0-75.0 [facility] Comment on above: Performed By: #### C BC #### [facility] [address] [place] [address] Dr. Evangelist Chicas Platelet mean volume (Bld) [Entitic vol] 10.8 fL Normal 9.5-13.5 [facility] Comment on above: Performed By: #### C BC #### [facility] [address] [address] [address] Evangelist Chicas PLT 141 103/ul Critically low 150-450 [facility] Comment on above: Performed By: #### C BC #### [facility] [address] [address] [address] Evangelist Chicas RBC 4.44 106/ul Normal 4.20-5.40 [facility] Comment on above: Performed By: #### C BC #### [facility] [address] [address] [address] Evangelist Chicas WBC 6.4 103/ul Normal 4.0-11.0 [facility] Comment on above: Performed By: #### C BC #### [facility] [address] [place] [address] Dr. Evangelist Chicas PROF CHEM 8 (BAS METB)on Anion gap [Moles/Vol] 7.5 mmol/L Normal [facility] Comment on above: Performed By: #### B MP #### [facility] [address] [place] [address] Dr. Evangelist Chicas Calcium [Mass/Vol] 8.9 mg/dL Normal 8.5-10.1 [facility] Comment on above: Performed By: #### B MP #### [facility] [address] [place] [address] Dr. Evangelist Chicas Chloride [Moles/Vol] 100 mmol/L Normal 98-107 [facility] Comment on above: Performed By: #### B MP #### [facility] [address] [place] [address] Dr. Evangelist Chicas CO2 [Moles/Vol] 33.9 mmol/L Critically high 21.0-32.0 [facility] Comment on above: Performed By: #### B MP #### [facility] [address] [place] [address] Dr. Evangelist Chicas Creatinine [Mass/Vol] 0.65 mg/dL Normal 0.55-1.02 [facility] Comment on above: Performed By: #### B MP #### [facility] [address] [address] [address] Evangelist Chicas EGFR-AF GUYANESE >60 Normal >=60 [facility] Comment on above: Performed By: #### B MP #### [facility] [address] [address] [address] Evangelist Chicas EGFR-NON AF GUYANESE >60 Normal >=60 [facility] Comment on above: Performed By: #### B MP #### [facility] [address] [address] [address] Evangelist Chicas Glucose [Mass/Vol] 152 mg/dL Critically high 74-106 [facility] Comment on above: Performed By: #### B MP #### [facility] [address] [place] [address] Dr. Evangelist Chicas Potassium [Moles/Vol] 4.4 mmol/L Normal 3.5-5.1 [facility] Comment on above: Performed By: #### B MP #### [facility] [address] [place] [address] Dr. Evangelist Chicas Sodium [Moles/Vol] 137 mmol/L Normal 136-145 [facility] Comment on above: Performed By: #### B MP #### [facility] [address] [place] [address] Dr. Evangelist Chicas Urea nitrogen [Mass/Vol] 16.0 mg/dL Normal 7.0-18.0 [facility] Comment on above: Performed By: #### B MP #### [facility] [address] [address] [address] Evangelist Chicas Urea nitrogen/Creatinin e [Mass ratio] 24.6 mg/mg Normal [facility] Comment on above: Performed By: #### B MP #### [facility] [address] [place] [address] Dr. Evangelist Chicas BNPon 11-10-2022 Natriuretic peptide B (Bld) [Mass/Vol] 330.0 pg/mL Normal <=900.0 [facility] Comment on above: Performed By: #### B MP #### [facility] [address] [place] [address] Dr. Evangelist Chicas CARDIAC LIS ADMITon 023 CK [Catalytic activity/Vol] 40 U/L Normal 26-192 [facility] Comment on above: Performed By: #### D DIM #### [facility] [address] [place] [address] Dr. Evangelist Chicas CK.MB [Mass/Vol] 1.06 ng/mL Normal <=3.60 [facility] Comment on above: Performed By: #### D DIM #### [facility] [address] [place] [address] Dr. Evangelist Chicas HSTROP 21.6 pg/mL Normal 4.0-51.3 [facility] Comment on above: Result Comment: CUT- OFF POINTS HAVE BEEN ESTABLISHED BASED ON THE FOURTH UNIVERSAL DEFINITIONS OF MYOCARDIAL INFARCTION. THE UPPER REFERENCE LIMIT (URL) OF TROPONIN, DEFINED THE 99TH PERCENTILE OF cTnI DISTRIBUTION IN A REFERENCE POPULATION, HAS BEEN CONFIRMED THE DECISION THRESHOLD FOR AK DIAGNOSIS. Performed By: #### D DIM #### [facility] [address] [place] [address] Dr. Evangelist Chicas VANNA 41 ng/mL Normal 9-82 [facility] Comment on above: Performed By: #### D DIM #### [facility] [address] [place] [address] Dr. Evangelist Chicas CBC AUTO DIFFon 11-10-2022 BASO # 0.1 103/ul Normal 0.0-0.1 [facility] Comment on above: Performed By: #### B MP #### [facility] [address] [place] [address] Dr. Evangelist Chicas Basophils/100 WBC (Bld) 0.7 % Normal 0.2-2.0 [facility] Comment on above: Performed By: #### B MP #### [facility] [address] [place] [address] Dr. Evangelist Chicas EO # 0.1 103/ul Normal 0.0-0.7 [facility] Comment on above: Performed By: #### B MP #### [facility] [address] [place] [address] Dr. Evangelist Chicas Eosinophils/100 WBC (Bld) 1.1 % Normal 0.9-7.0 [facility] Comment on above: Performed By: #### B MP #### [facility] [address] [place] [address] Dr. Evangelist Chicas Erythrocyte distribution width (RBC) [Ratio] 12.8 % Normal 11.0-15.0 [facility] Comment on above: Performed By: #### B MP #### [facility] [address] [place] [address] Dr. Evangelist Chicas Hematocrit (Bld) [Volume fraction] 41.1 % Normal 36.0-48.0 [facility] Comment on above: Performed By: #### B MP #### [facility] [address] [place] [address] Dr. Evangelist Chicas Hemoglobin (Bld) [Mass/Vol] 13.2 g/dL Normal 12.0-16.0 [facility] Comment on above: Performed By: #### B MP #### [facility] [address] [place] [address] Dr. Evangelist Chicas IG # 0.02 10e3/ul Normal 0.00-0.03 [facility] Comment on above: Performed By: #### B MP #### [facility] [address] [place] [address] Dr. Evangelist Chicas IG % 0.3 % Normal 0.0-0.5 [facility] Comment on above: Performed By: #### B MP #### [facility] [address] [place] [address] Dr. Evangelist Chicas LYMPH # 0.7 103/ul Critically low 1.2-3.8 [facility] Comment on above: Performed By: #### B MP #### [facility] [address] [place] [address] Dr. Evangelist Chicas Lymphocytes/100 WBC (Bld) 9.5 % Critically low 20.5-60.0 [facility] Comment on above: Performed By: #### B MP #### [facility] [address] [place] [address] Dr. Evangelist Chicas MANUAL DIFF REQ NO Normal [facility] Comment on above: Performed By: #### B MP #### [facility] [address] [place] [address] Dr. Evangelist Chicas MCH (RBC) [Entitic mass] 29.6 pg Normal 26.7-34.0 [facility] Comment on above: Performed By: #### B MP #### [facility] [address] [place] [address] Dr. Evangelist Chicas MCHC (RBC) [Mass/Vol] 32.1 g/dL Normal 29.9-35.2 [facility] Comment on above: Performed By: #### B MP #### [facility] [address] [place] [address] Dr. Evangelist Chicas MCV (RBC) [Entitic vol] 92.2 fL Normal 81.0-99.0 [facility] Comment on above: Performed By: #### B MP #### [facility] [address] [place] [address] Dr. Evangelist Chicas MONO # 0.6 103/ul Normal 0.3-0.8 [facility] Comment on above: Performed By: #### B MP #### [facility] [address] [place] [address] Dr. Evangelist Chicas Monocytes/100 WBC (Bld) 8.1 % Normal 1.7-12.0 [facility] Comment on above: Performed By: #### B MP #### [facility] [address] [place] [address] Dr. Evangelist Chicas NEUT # 6.1 103/ul Normal 1.4-6.5 [facility] Comment on above: Performed By: #### B MP #### [facility] [address] [place] [address] Dr. Evangelist Chicas Neutrophils/100 WBC (Bld) 80.3 % Critically high 43.0-75.0 [facility] Comment on above: Performed By: #### B MP #### [facility] [address] [place] [address] Dr. Evangelist Chicas Platelet mean volume (Bld) [Entitic vol] 9.8 fL Normal 9.5-13.5 [facility] Comment on above: Performed By: #### B MP #### [facility] [address] [address] [address] Evangelist Chicas PLT 180 103/ul Normal 150-450 [facility] Comment on above: Performed By: #### B MP #### [facility] [address] [address] [address] Evangelist Chicas RBC 4.46 106/ul Normal 4.20-5.40 [facility] Comment on above: Performed By: #### B MP #### [facility] [address] [address] [address] Evangelist Chicas WBC 7.6 103/ul Normal 4.0-11.0 [facility] Comment on above: Performed By: #### B MP #### [facility] [address] [address] [address] Evangelist Chicas CTA CHEST WO W [...] or inflammatory process. Electronically authenticated by: DEL KLAUS Date: 2022-11-10 17:30 Normal [facility] Covid-19 PCR (CVDTB)on SARS-CoV-2 (COVID-19) RNA SHNEG+probe Ql (Unsp spec) Not detected Normal NOT DETECTED [facility] Comment on above: Result [...] for this test is supported by the [employer] Supervisor of Health and Human Service's declaration that [...] used). Performed By: #### B MP #### [facility] [address] [place] [address] Dr. Evangelist Chicas D-DIMERon 11-10-2022 D-DIMER 0.63 mg/L FEU Critically high <=0.59 [facility] Comment on above: Performed By: #### D DIM #### [facility] [address] [place], [place] [address] Dr. Evangelist Chicas D-DIMER COMMENTS SEE BELOW Normal [facility] Comment on above: Result Comment: Incr [...] hospitalization. Performed By: #### D DIM #### [facility] [address] [place] [address] Dr. Evangelist HINOJOSA URINE PROFILEon 3 Bilirubin Ql (U) Negative Normal NEGATIVE [facility] Comment on above: Performed By: #### U MICRO, ERUR #### [facility] [address] [place] [address] Dr. Evangelist Chicas Clarity (U) CLEAR Normal CLEAR [facility] Comment on above: Performed By: #### U MICRO, ERUR #### [facility] [address] [place] [address] Dr. Evangelist Chicas Color (U) LT. YELLOW Normal YELLOW [facility] Comment on above: Performed By: #### U MICRO, ERUR #### [facility] [address] [place] [address] Dr. Evangelist Chicas ERUAHD A micrscopic examination will be performed if indicated. Normal [facility] Comment on above: Performed By: #### U MICRO, ERUR #### [facility] [address] [place] [address] Dr. Evangelist Chicas Glucose Ql (U) Negative Normal NEGATIVE [facility] Comment on above: Performed By: #### U MICRO, ERUR #### [facility] [address] [place] [address] Dr. Evangelist Chicas Hemoglobin Ql (U) TRACE-INTACT Abnormal NEGATIVE [facility] Comment on above: Performed By: #### U MICRO, ERUR #### [facility] [address] [place] [address] Dr. Evangelist Chicas Ketones Ql (U) Negative Normal NEGATIVE [facility] Comment on above: Performed By: #### U MICRO, ERUR #### [facility] [address] [place] [address] Dr. Evangelist Chicas LEUKOCYTES Negative Normal NEGATIVE [facility] Comment on above: Performed By: #### U MICRO, ERUR #### [facility] [facility] [address] [place] [address] Dr. Evangelist Chicas Nitrite Ql (U) Negative Normal NEGATIVE [facility] Comment on above: Performed By: #### U MICRO, ERUR #### [facility] [address] [place] [address] Dr. Evangelist Chicas pH (U) 6.0 [pH] Normal 5-9 [facility] Comment on above: Performed By: #### U MICRO, ERUR #### [facility] [address] [place] [address] Dr. Evangelist Chicas SPEC GRAVITY 1.010 Normal 1.005-<=1.025 [facility] Comment on above: Performed By: #### U MICRO, ERUR #### [facility] [address] [place] [address] Dr. Evangelist Chicas UA PROTEIN Negative Normal NEGATIVE/ TRACE [facility] Comment on above: Performed By: #### U MICRO, ERUR #### [facility] [address] [place] [address] Dr. Evangelist Chicas UR MICRO IND INDICATED Normal [facility] Comment on above: Performed By: #### U MICRO, ERUR #### [facility] [address] [place] [address] Dr. Evangelist Chicas Urobilinogen Qn (U) 0.2 {Amalia'U}/dL Normal 0.2 - 1.0 [facility] Comment on above: Performed By: #### U MICRO, ERUR #### [facility] [address] [place] [address] Dr. Evangelist Chicas INFLUENZA A AND B AGon 11-10 [facility] SEE BELOW Normal [facility] Comment on above: Result Comment: Nega tive for Flu A protein angiten. Infection due to Flu A cannot be ruled out. Flu A angiten in the sample may be below the detection limit of the test. Performed By: #### D DIM #### [facility] [address] [place] [address] Dr. Evangelist Chicas INFLUBNEGH SEE BELOW Normal [facility] Comment on above: Result Comment: Nega tive for Flu B protein antigen. Infection due to Flu B cannot be ruled out. Flu B antigen in the sample may be below the detection limit of the test. Performed By: #### D DIM #### [facility] [address] [place] [address] Dr. Evangelist Chicas INFLUENZA A AG Negative Normal NEGATIVE SEE COMMENT [facility] Comment on above: Performed By: #### D DIM #### [facility] [address] [place] [address] Dr. Evangelist Chicas INFLUENZA B AG Negative Normal NEGATIVE SEE COMMENT [facility] Comment on above: Performed By: #### D DIM #### [facility] [address] [place] [address] Dr. Evangelist Chicas PROF 14(COMP METB)on 023 Albumin [Mass/Vol] 3.1 g/dL Critically low 3.4-5.0 Th e [facility] Comment on above: Performed By: #### B MP #### [facility] [address] [place] [address] Dr. Evangelist Chicas Albumin/Globulin [Mass ratio] 0.7 {ratio} Normal [facility] Comment on above: Performed By: #### B MP #### [facility] [address] [place] [address] Dr. Evangelist Chicas ALP [Catalytic activity/Vol] 108 U/L Normal 46-116 [facility] Comment on above: Performed By: #### B MP #### [facility] [address] [place] [address] Dr. Evangelist Chicas ALT [Catalytic activity/Vol] 20 U/L Normal 14-59 [facility] Comment on above: Performed By: #### B MP #### [facility] [address] [place] [address] Dr. Evangelist Chicas Anion gap [Moles/Vol] 6.0 mmol/L Normal [facility] Comment on above: Performed By: #### B MP #### [facility] [address] [place] [address] Dr. Evangelist Chicas AST [Catalytic activity/Vol] 16 U/L Normal 15-37 [facility] Comment on above: Performed By: #### B MP #### [facility] [address] [address] [address] Evangelist Chicas Bilirubin [Mass/Vol] 0.6 mg/dL Normal 0.2-1.0 [facility] Comment on above: Performed By: #### B MP #### [facility] [address] [address] [address] vEangelist Chicas Calcium [Mass/Vol] 9.1 mg/dL Normal 8.5-10.1 [facility] Comment on above: Performed By: #### B MP #### [facility] [address] [address] [address] Evangelist Chicas Chloride [Moles/Vol] 97 mmol/L Critically low 98-107 [facility] Comment on above: Performed By: #### B MP #### [facility] [address] [place] [address] Dr. Evangelist Chicas CO2 [Moles/Vol] 36.9 mmol/L Critically high 21.0-32.0 [facility] Comment on above: Performed By: #### B MP #### [facility] [address] [address] [address] Evangelist Chicas Creatinine [Mass/Vol] 0.71 mg/dL Normal 0.55-1.02 [facility] Comment on above: Performed By: #### B MP #### [facility] [address] [place] [address] Dr. Evangelist Chicas EGFR-AF GUYANESE >60 Normal >=60 [facility] Comment on above: Performed By: #### B MP #### [facility] [address] [address] [address] Evangelist Chicas EGFR-NON AF GUYANESE >60 Normal >=60 [facility] Comment on above: Performed By: #### B MP #### [facility] [address] [place] [address] Dr. Evangelist Chicas Globulin (S) [Mass/Vol] 4.4 g/dL Normal [facility] Comment on above: Performed By: #### B MP #### [facility] [address] [place] [address] Dr. Evangelist Chicas Glucose [Mass/Vol] 124 mg/dL Critically high 74-106 [facility] Comment on above: Performed By: #### B MP #### [facility] [address] [address] [address] Evangelist Chicas Potassium [Moles/Vol] 3.9 mmol/L Normal 3.5-5.1 [facility] Comment on above: Performed By: #### B MP #### [facility] [address] [address] [address] Evangelist Chicas Protein [Mass/Vol] 7.5 g/dL Normal 6.4-8.2 [facility] Comment on above: Performed By: #### B MP #### [facility] [address] [place] [address] Dr. Evangelist Chicas Sodium [Moles/Vol] 136 mmol/L Normal 136-145 [facility] Comment on above: Performed By: #### B MP #### [facility] [address] [place] [address] Dr. Evangelist Chicas Urea nitrogen [Mass/Vol] 17.0 mg/dL Normal 7.0-18.0 [facility] Comment on above: Performed By: #### B MP #### [facility] [address] [place] [address] Dr. Evangelist Chicas Urea nitrogen/Creatinin e [Mass ratio] 23.9 mg/mg Normal [facility] Comment on above: Performed By: #### B MP #### [facility] [address] [place] [address] Dr. Evangelist Chicas URINE MICROSCOPIC ONLYon BACTERIA NONE SEEN Normal NONE SEEN [facility] Comment on above: Performed By: #### U MICRO, ERUR #### [facility] [address] [place] [address] Dr. Evangelist Chicas Bacteria identified Cx Nom (U) NOT INDICATED Normal [facility] Comment on above: Performed By: #### U MICRO, ERUR #### [facility] [address] [place] [address] Dr. Evangelist Chicas CAST NONE SEEN Normal NONE SEEN [facility] Comment on above: Performed By: #### U MICRO, ERUR #### [facility] [address] [address] [address] Evangelist Chicas Crystals LM Nom (Urine sed) NONE SEEN Normal NONE SEEN [facility] Comment on above: Performed By: #### U MICRO, ERUR #### [facility] [address] [place] [address] Dr. Evangelist Chicas Epithelial cells LM Ql (Urine sed) FEW Abnormal NONE SEEN /RARE [facility] Comment on above: Performed By: #### U MICRO, ERUR #### [facility] [address] [place] [address] Dr. Evangelist Chicas MUCOUS NONE SEEN Normal NONE SEEN [facility] Comment on above: Performed By: #### U MICRO, ERUR #### [facility] [address] [place] [address] Dr. Evangelist Chicas RBC 0-2 Normal 0-2 [facility] Comment on above: Performed By: #### U MICRO, ERUR #### [facility] [address] [place] [address] Dr. Evangelist Chicas WBC NONE SEEN Normal NONE SEEN [facility] Comment on above: Performed By: #### U MICRO, ERUR #### [facility] [address] [place] [address] Dr. Evangelist Chicas XR CHEST 1 Von [...] JH JAIN Date: 2022-11-10 15:24 Normal [facility] Vital Signs Date Time Vital Sign Value Performing Clinician Faci lity 12-23-2023 13:24-0500 Body height 160 cm Mane Lee MD Work Phone: [facility] 12-23-2023 13:24-0500 Body mass index (BMI) [Ratio] 49.25 kg/m2 Mane Lee MD Work Phone: [facility] 12-23-2023 13:24-0500 Body temperature 97.3 [degF] Mane Lee MD Work Phone: [facility] 12-23-2023 13:24-0500 Body weight 126.1 kg Mane Lee MD Work Phone: [facility] 12-23-2023 13:24-0500 Diastolic blood pressure 80 mm[Hg] Mane Lee MD Work Phone: [facility] 12-23-2023 13:24-0500 Heart rate 96 /min Mane Lee MD Work Phone: [facility] 12-23-2023 13:24-0500 SaO2% (BldA) [Mass fraction] 96 % Mane Lee MD Work Phone: [facility] 12-23-2023 13:24-0500 Systolic blood pressure 140 mm[Hg] Mane Lee MD Work Phone: [facility] Healthcare Encounters Encounter Date Encounter Type Care Provider Facility Start: 01-26-2024 End: 01-27-2024 ambulatory Corine Frye MD Facility:[facility] Start: 01-22-2024 End: 01-22-2024 ambulatory MANE LEE Not Available Start: 12-29-2023 End: 12-30-2023 ambulatory Corine Frye MD Facility:[facility] Start: 12-23-2023 End: 12-23-2023 ambulatory MANE LEE Not Available Start: 12-23-2023 Bamboo flowsheet Mane Lee MD Work Phone: [facility] Start: 12-23-2023 Amy flowsheet Mane Lee MD Work Phone: [facility] Start: 12-23-2023 End: 12-23-2023 Office outpatient visit 25 minutes Mane Lee MD Work Phone: [facility] Comment on above: Essential hypertensi on, benign (CMS/HCC) (Primary Dx); Degenerative lumbar spinal stenosis; Lumbar disc herniation with radiculopathy; Leg edema; Chronic obstructive pulmonary disease, unspecified COPD type (CMS/HCC) Start: 12-10-2023 End: 12-10-2023 ambulatory Lakisha Shipman Facility:[facility] Start: 12-10-2023 End: 12-10-2023 ambulatory MD Mane Lee Work Phone: [facility] Work Phone: Start: 12-10-2023 End: 12-10-2023 Patient encounter procedure MD Mane Lee Work Phone: [facility] Work Phone: Start: 11-26-2023 End: 11-26-2023 ambulatory MANE ELE Not Available Start: 10-31-2023 End: 10-31-2023 ambulatory MANE LEE Not Available Start: 08-25-2023 End: 08-26-2023 ambulatory Corine Frye MD Facility:[facility] Start: 01-29-2023 End: 01-30-[address] MANE LEE Facility: Start: 11-10-2022 End: 11-14-2022 Evaluation and management of inpatient DR MANE LEE Facility:[facility] Procedures Date Procedure Procedure Detail Performing Clinician Start: 12-10-2023 X-ray of lumbar spin e, six views including bending views MD Mane Lee Work Phone: Start: 01-29-2023 Mammography Mane hinojosa MD Work Phone: Start: 05-20-2022 Colonoscopy Mane hinojosa MD Work Phone: Plan of Treatment Date Care Activity Detail Author Start: 05-20-2032 Screening for malign ant neoplasm of colon [facility] Start: 02-24-2024 End: 02-24-2024 Patient encounter procedure 02/24/2024 9:00 AM EDT [facility] [address] [place] [address] Mane Lee MD [address] [place] [phone] [facility] Start: 01-30-2024 Screening for malign ant neoplasm of breast Mammogram [facility] Start: 12-23-2023 End: 12-23-2023 Patient encounter procedure 12/23/2023 1:15 PM EST Office Visit [facility] [address] [place] [phone] Mane Lee MD [address] [place] [id number] Arrived [facility] Comment on above: Arrived Start: 1993 Screening for malign ant neoplasm of cervix [facility] Start: 1984 Screening for malign ant neoplasm of cervix Pap Smear [facility] Start: 1963 Screening for malign ant neoplasm of colon [facility] Payers Date Payer Category Payer Self-pay 2023 Unknown [id number] 2022 Unknown [id number] 1963 Unknown [id number] 2.16.84 [id number] 1963 Unknown [id number] 2.16.84 [id number] 1963 Unknown [id number] 2.16.84 [id number] 1963 Unknown [id number] 2.16.84 [id number] 1963 Unknown [id number] 2.16.84 [id number] 1963 Unknown [id number] 2.16.840 [id number] 1963 Unknown [id number] 2.16. [id number] 1963 Unknown [id number] 2.16. [id number] 1963 Unknown [id number] 2.16. [id number] 1959 Unknown [id number] Unknown [facility] [id number] Unknown [id number] 2.16.8 [id number] Social History Date Type Detail Facility Tobacco smoking stat [facility] Unknown if ever smoked [facility] Work Phone: Start: 1965 Sex Assigned At Female F [facility] Start: 10-31-2023 Tobacco smoking stat [facility] Smokes tobacco daily [facility] History of [...] work until 03/08/24. documented in this encounter [facility] Healthcare Evaluation note Note Date & Type Note Facility Evaluation note No assessment information availa [facility] Work Phone: Evaluation note Note [...] content) DATE CREATED AUTHOR [facility]/02/2023 [facility] DATE CREATED AUTHOR AUTHOR'S ORGANIZ ATION 01/23/2024 [facility] EPIC DATE CREATED AUTHOR AUTHOR'S ORGANIZ ATION 01/31/2024 [facility] DATE CREATED AUTHOR AUTHOR'S ORGANIZ ATION 02/04/2024 [facility] Care Teams (unrecognized sec tion and content) Team Status: Active Member Role Status Dates Mane Lee MD Primary Care Provider Active Team Status: Inactive Member Role Status Dates Mane Lee MD Primary Care Provider Active S tart: December 10, 2023 End: December 10, 2023 BERNICE Blanc Attending Provider Active Start: December 10, 2023 End: December 10, 2023 Cable Maker Relationship Specialty Start Date End Date Mane Lee MD [address] [place] [phone] PCP - General Family Medicine 12/23/23 Cable Maker Relationship Specialty Start Date End Date Mane Lee MD [address] [place] [phone] PCP - General Family Medicine 12/23/23 [...] BASED ON THE PRIMARY CLINICAL RECORDS. [facility]. provides no warranty or guarantee of the accuracy or completeness of information in this document.
== END 2024-02-04 09:04 | disposition home or self-care (01) ==
LOC: PM 09:03
PROVIDERS: PCP Family Medicine; Visit Provider Nurse Practitioner
DX: M47.816 Spondylosis without myelopathy or radiculopathy, lumbar region (principal); M48.062 Spinal stenosis, lumbar region with neurogenic claudication; M79.18 Myalgia, other site
CPT/HCPCS: G0463

== ENCOUNTER 2024-02-23 09:21 | Day surgery (SDC) | payer BC, SELFPAY ==
--- OUTSIDE RECORDS SUMMARY | 2024-02-23 09:33 | XMS_ITS | CCD ---
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 Role Phone JESUS, DR MANE Avina [...] JESUS, DR MANE Avina Primary Care Unavailable HAMLIN, DR NIA [employer] Unavailable JESUS, DR [...] (1 source) Ciprofloxacin Drug Allergy 10-19-2014 [facility] (3 sources) Ciprofloxacin Drug Allergy 10-31-2023 [facility] (1 source) Ciprofloxacin Drug Allergy 12-10-2023 [facility] Repository Medications Current Medications Medication Drug Class(es) Dates Sig (Normalized) Sig (Original) [id number] 200 actuat albuterol 0.09 mg/actuat metered dose [...] 10-31-2023 Chronic Other aftercare (1 source) Other fci (current) drug therapy; 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: [OTH [employer]AR [employer]FFIC [employer]OLLER CURRENT DRUG THERAPY] Onset: 11-20-2022 Episodic Other aftercare (1 source) 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 [place] [place] [address] XRay Report Signed Patient: Lawrence Harrison MR#: [id number] 8 : 1965 Acct:[id number] Age/Sex: 58 / F ADM Date: 12/10/23 Loc: XD Room: Type: [facility] Attending Dr: Lakisha AMBROSIOC Copies to: [...] Smith Jr., D.O.12/10/2023 3:58 PM Dictation Location: [place] [address] Transcribed By: [facility] 12/10/23 1558 Dictated By: Owen Smith Jr DO 12/10/23 1557 Signed By: 12/10/23 1558 Normal [facility] HEMOGLOBINon 01-29-2023 Hemoglobin (Bld) [Mass/Vol] 14.6 g/dL Normal 12.0-16.0 [facility] Comment on above: Performed By: #### H GB #### [facility] [address] [place] [address] Dr. Evangelist Chicas MG MAMM SCREEN 3D MANJIT CADon 01-29-2023 MG MAMM SCREEN 3D MANJIT CAD Patient: LAWRENCE HARRISON Exam Date: 01/29/2023 : 1965 Gender:F Ordering : DR MANE LEE . Admission #: [id number] Family : Order #: [id number] CLICK HERE TO VIEW EXAM RADIOLOGY REPORT [...] rectal cancer at age 73. LOCATION: [facility] BREAST COMPOSITION: Scattered areas fibroglandular [...] MD on 01/29/2023 at 09:29 Normal [facility] CBC AUTO DIFFon 11-14-2022 BASO # 0.0 103/ul Normal 0.0-0.1 [facility] Comment on above: Performed By: #### B MP #### [facility] [address] [place] [address] Dr. Evangelist Chicas Basophils/100 WBC (Bld) 0.1 % Critically low 0.2-2.0 [facility] Comment on above: Performed By: #### B MP #### [facility] [address] [place] [address] Dr. Evangelist Chicas EO # 0.0 103/ul Normal 0.0-0.7 [facility] Comment on above: Performed By: #### B MP #### [facility] [address] [place] [address] [address] Evangelist Chicas Eosinophils/100 WBC (Bld) 0.1 % Critically low 0.9-7.0 [facility] Comment on above: Performed By: #### B MP #### [facility] [address] [place] [address] Dr. Evangelist Chicas Erythrocyte distribution width (RBC) [Ratio] 13.1 % Normal 11.0-15.0 [facility] Comment on above: Performed By: #### B MP #### [facility] [address] [place] [address] Dr. Evangelist Chicas Hematocrit (Bld) [Volume fraction] 41.4 % Normal 36.0-48.0 [facility] Comment on above: Performed By: #### B MP #### [facility] [address] [place] [address] Dr. Evangelist Chicas Hemoglobin (Bld) [Mass/Vol] 13.0 g/dL Normal 12.0-16.0 [facility] Comment on above: Performed By: #### B MP #### [facility] [address] [place] [address] Dr. Evangelist Chicas IG # 0.03 10e3/ul Normal 0.00-0.03 [facility] Comment on above: Performed By: #### B MP #### [facility] [address] [place] [address] Dr. Evangelist Chicas IG % 0.4 % Normal 0.0-0.5 [facility] Comment on above: Performed By: #### B MP #### [facility] [address] [place] [address] Dr. Evangelist Chicas LYMPH # 0.4 103/ul Critically low 1.2-3.8 [facility] Comment on above: Performed By: #### B MP #### [facility] [address] [place] [address] Dr. Evangelist Chicas Lymphocytes/100 WBC (Bld) 4.7 % Critically low 20.5-60.0 [facility] Comment on above: Performed By: #### B MP #### [facility] [address] [place] [address] [address] Evangelist Chicas MANUAL DIFF REQ NO Normal [facility] Comment on above: Performed By: #### B MP #### [facility] [address] [address] [address] Evangelist Chicas MCH (RBC) [Entitic mass] 29.1 pg Normal 26.7-34.0 [facility] Comment on above: Performed By: #### B MP #### [facility] [address] [address] [address] Evangelist Chicas MCHC (RBC) [Mass/Vol] 31.4 g/dL Normal 29.9-35.2 [facility] Comment on above: Performed By: #### B MP #### [facility] [address] [place] [address] Dr. Evangelist Chicas MCV (RBC) [Entitic vol] 92.8 fL Normal 81.0-99.0 [facility] Comment on above: Performed By: #### B MP #### [facility] [address] [place] [address] Dr. Evangelist Chicas MONO # 0.1 103/ul Critically low 0.3-0.8 [facility] Comment on above: Performed By: #### B MP #### [facility] [address] [place] [address] Dr. Evangelist Chicas Monocytes/100 WBC (Bld) 1.8 % Normal 1.7-12.0 [facility] Comment on above: Performed By: #### B MP #### [facility] [address] [place] [address] Dr. Evangelist Chicas NEUT # 6.8 103/ul Critically high 1.4-6.5 [facility] Comment on above: Performed By: #### B MP #### [facility] [address] [place] [address] Dr. Evangelist Chicas Neutrophils/100 WBC (Bld) 92.9 % Critically high 43.0-75.0 [facility] Comment on above: Performed By: #### B MP #### [facility] [address] [place] [address] [address] Evangelist Chicas Platelet mean volume (Bld) [Entitic vol] 11.3 fL Normal 9.5-13.5 [facility] Comment on above: Performed By: #### B MP #### [facility] [address] [place] [address] Dr. Evangelist Chicas PLT 109 103/ul Critically low 150-450 [facility] Comment on above: Performed By: #### B MP #### [facility] [address] [place] [address] [address] Evangelist Chicas RBC 4.46 106/ul Normal 4.20-5.40 [facility] Comment on above: Performed By: #### B MP #### [facility] [address] [place] [address] Dr. Evangelist Chicas WBC 7.4 103/ul Normal 4.0-11.0 [facility] Comment on above: Performed By: #### B MP #### [facility] [address] [place] [address] Dr. Evangelist Chicas PROF CHEM 8 (BAS METB)on Anion gap [Moles/Vol] 11.8 mmol/L Normal [facility] Comment on above: Performed By: #### B MP #### [facility] [address] [place] [address] Dr. Evangelist Chicas Calcium [Mass/Vol] 9.3 mg/dL Normal 8.5-10.1 [facility] Comment on above: Performed By: #### B MP #### [facility] [address] [place] [address] Dr. Evangelist Chicas Chloride [Moles/Vol] 99 mmol/L Normal 98-107 [facility] Comment on above: Performed By: #### B MP #### [facility] [address] [place] [address] Dr. Evangelist Chicas CO2 [Moles/Vol] 31.6 mmol/L Normal 21.0-32.0 [facility] Comment on above: Performed By: #### B MP #### [facility] [address] [place] [address] Dr. Evangelist Chicas Creatinine [Mass/Vol] 0.75 mg/dL Normal 0.55-1.02 [facility] Comment on above: Performed By: #### B MP #### [facility] [address] [place] [address] Dr. Evangelist Chicas EGFR-AF SAMMARINESE >60 Normal >=60 [facility] Comment on above: Performed By: #### B MP #### [facility] [address] [place] [address] Dr. Evangelist Chicas EGFR-NON AF SAMMARINESE >60 Normal >=60 [facility] Comment on above: Performed By: #### B MP #### [facility] [address] [place] [address] Dr. Evangelist Chicas Glucose [Mass/Vol] 162 mg/dL Critically high 74-106 [facility] [place] Comment on above: Performed By: #### B MP #### [facility] [address] [place] [address] Dr. Evangelist Chicas Potassium [Moles/Vol] 4.4 mmol/L Normal 3.5-5.1 [facility] Comment on above: Performed By: #### B MP #### [facility] [address] [place] [address] Dr. Evangelist Chicas Sodium [Moles/Vol] 138 mmol/L Normal 136-145 [facility] Comment on above: Performed By: #### B MP #### [facility] [address] [place] [address] Dr. Evangelist Chicas Urea nitrogen [Mass/Vol] 32.0 mg/dL Critically high 7.0-18.0 [facility] Comment on above: Performed By: #### B MP #### [facility] [address] [place] [address] Dr. Evangelist Chicas Urea nitrogen/Creatinin e [Mass ratio] 42.7 mg/mg Normal [facility] Comment on above: Performed By: #### B MP #### [facility] [address] [place] [address] Dr. Evangelist Chicas CBC AUTO DIFFon 11-13-2022 BASO # 0.0 103/ul Normal 0.0-0.1 [facility] Comment on above: Performed By: #### C BC #### [facility] [address] [place] [address] Dr. Evangelist Chicas Basophils/100 WBC (Bld) 0.1 % Critically low 0.2-2.0 [facility] Comment on above: Performed By: #### C BC #### [facility] [address] [place] [address] Dr. Evangelist Chicas EO # 0.0 103/ul Normal 0.0-0.7 [facility] Comment on above: Performed By: #### C BC #### [facility] [address] [place] [address] Dr. Evangelist Chicas Eosinophils/100 WBC (Bld) 0.0 % Critically low 0.9-7.0 [facility] Comment on above: Performed By: #### C BC #### [facility] [address] [place] [address] Dr. Evangelist Chicas Erythrocyte distribution width (RBC) [Ratio] 12.9 % Normal 11.0-15.0 [facility] Comment on above: Performed By: #### C BC #### [facility] [address] [place] [address] Dr. Evangelist Chicas Hematocrit (Bld) [Volume fraction] 39.0 % Normal 36.0-48.0 [facility] Comment on above: Performed By: #### C BC #### [facility] [address] [place] [address] Dr. Evangelist Chicas Hemoglobin (Bld) [Mass/Vol] 12.3 g/dL Normal 12.0-16.0 [facility] Comment on above: Performed By: #### C BC #### [facility] [address] [place] [address] Dr. Evangelist Chicas IG # 0.04 10e3/ul Critically high 0.00-0.03 [facility] Comment on above: Performed By: #### C BC #### [facility] [address] [place] [address] Dr. Evangelist Chicas IG % 0.4 % Normal 0.0-0.5 [facility] Comment on above: Performed By: #### C BC #### [facility] [address] [place] [address] Dr. Evangelist Chicas LYMPH # 0.5 103/ul Critically low 1.2-3.8 [facility] Comment on above: Performed By: #### C BC #### [facility] [address] [place] [address] Dr. Evangelist Chicas Lymphocytes/100 WBC (Bld) 4.5 % Critically low 20.5-60.0 [facility] Comment on above: Performed By: #### C BC #### [facility] [address] [place] [address] Dr. Evangelist Chicas MANUAL DIFF REQ NO Normal [facility] Comment on above: Performed By: #### C BC #### [facility] [address] [place] [address] Dr. Evangelist Chicas MCH (RBC) [Entitic mass] 29.7 pg Normal 26.7-34.0 [facility] Comment on above: Performed By: #### C BC #### [facility] [address] [place] [address] Dr. Evangelist Chicas MCHC (RBC) [Mass/Vol] 31.5 g/dL Normal 29.9-35.2 [facility] Comment on above: Performed By: #### C BC #### [facility] [address] [place] [address] Dr. Evangelist Chicas MCV (RBC) [Entitic vol] 94.2 fL Normal 81.0-99.0 [facility] Comment on above: Performed By: #### C BC #### [facility] [address] [place] [address] Dr. Evangelist Chicas MONO # 0.2 103/ul Critically low 0.3-0.8 [facility] Comment on above: Performed By: #### C BC #### [facility] [address] [place] [address] Dr. Evangelist Chicas Monocytes/100 WBC (Bld) 1.5 % Critically low 1.7-12.0 [facility] Comment on above: Performed By: #### C BC #### [facility] [address] [place] [address] Dr. Evangelist Chicas NEUT # 10.5 103/ul Critically high 1.4-6.5 [facility] Comment on above: Performed By: #### C BC #### [facility] [address] [place] [address] Dr. Evangelist Chicas Neutrophils/100 WBC (Bld) 93.5 % Critically high 43.0-75.0 [facility] Comment on above: Performed By: #### C BC #### [facility] [address] [place] [address] Dr. Evangelist Chicas Platelet mean volume (Bld) [Entitic vol] 10.4 fL Normal 9.5-13.5 [facility] Comment on above: Performed By: #### C BC #### [facility] [address] [place] [address] Dr. Evangelist Chicas PLT 169 103/ul Normal 150-450 [facility] Comment on above: Performed By: #### C BC #### [facility] [address] [place] [address] Dr. Evangelist Chicas RBC 4.14 106/ul Critically low 4.20-5.40 [facility] Comment on above: Performed By: #### C BC #### [facility] [address] [place] [address] Dr. Evangelist Chicas WBC 11.2 103/ul Critically high 4.0-11.0 [facility] Comment on above: Performed By: #### C BC #### [facility] [address] [place] [address] Dr. Evangelist Chicas CULTURE SPUTUMon 11-13-2022 CULTURE SPUTUM Culture Observations : NORMAL RESPIRATORY SHAINA. Normal [facility] Comment on above: Performed By: #### B MP #### [facility] [address] [place] [address] Dr. Evangelist Chicas PROF CHEM 8 (BAS METB)on Anion gap [Moles/Vol] 9.2 mmol/L Normal [facility] Comment on above: Performed By: #### D DIM #### [facility] [address] [address] [address] Evangelist Chicas Calcium [Mass/Vol] 9.1 mg/dL Normal 8.5-10.1 [facility] Comment on above: Performed By: #### D DIM #### [facility] [address] [place] [address] [address] Evangelist Chicas Chloride [Moles/Vol] 100 mmol/L Normal 98-107 [facility] Comment on above: Performed By: #### D DIM #### [facility] [address] [place] [address] [address] Evangelist Chicas CO2 [Moles/Vol] 33.8 mmol/L Critically high 21.0-32.0 [facility] Comment on above: Performed By: #### D DIM #### [facility] [address] [place] [address] Dr. Evangelist Chicas Creatinine [Mass/Vol] 0.85 mg/dL Normal 0.55-1.02 [facility] Comment on above: Performed By: #### D DIM #### [facility] [address] [place] [address] Dr. Evangelist Chicas EGFR-AF SAMMARINESE >60 Normal >=60 [facility] Comment on above: Performed By: #### D DIM #### [facility] [address] [address] [address] Evangelist Chicas EGFR-NON AF SAMMARINESE >60 Normal >=60 [facility] Comment on above: Performed By: #### D DIM #### [facility] [address] [address] [address] Evangelist Chicas Glucose [Mass/Vol] 151 mg/dL Critically high 74-106 [facility] Comment on above: Performed By: #### D DIM #### [facility] [address] [place] [address] Dr. Evangelist Chicas Potassium [Moles/Vol] 4.0 mmol/L Normal 3.5-5.1 [facility] Comment on above: Performed By: #### D DIM #### [facility] [address] [place] [address] Dr. Evangelist Chicas Sodium [Moles/Vol] 139 mmol/L Normal 136-145 [facility] Comment on above: Performed By: #### D DIM #### [facility] [address] [place] [address] Dr. Evangelist Chicas Urea nitrogen [Mass/Vol] 29.0 mg/dL Critically high 7.0-18.0 [facility] Comment on above: Performed By: #### D DIM #### [facility] [address] [place] [address] Dr. Evangelist Chicas Urea nitrogen/Creatinin e [Mass ratio] 34.1 mg/mg Normal [facility] Comment on above: Performed By: #### D DIM #### [facility] [address] [place] [address] Dr. Evangelist Chicas CBC AUTO DIFFon 11-12-2022 BASO # 0.0 103/ul Normal 0.0-0.1 [facility] Comment on above: Performed By: #### C BC #### [facility] [address] [place] [address] Dr. Evangelist Chicas Basophils/100 WBC (Bld) 0.1 % Critically low 0.2-2.0 [facility] Comment on above: Performed By: #### C BC #### [facility] [address] [place] [address] Dr. Evangelist Chicas EO # 0.0 103/ul Normal 0.0-0.7 [facility] Comment on above: Performed By: #### C BC #### [facility] [address] [place] [address] Dr. Evangelist Chicas Eosinophils/100 WBC (Bld) 0.0 % Critically low 0.9-7.0 [facility] Comment on above: Performed By: #### C BC #### [facility] [address] [place] [address] Dr. Evangelist Chicas Erythrocyte distribution width (RBC) [Ratio] 12.8 % Normal 11.0-15.0 [facility] Comment on above: Performed By: #### C BC #### [facility] [address] [address] [address] Evangelist Chicas Hematocrit (Bld) [Volume fraction] 41.5 % Normal 36.0-48.0 [facility] Comment on above: Performed By: #### C BC #### [facility] [address] [address] [address] Evangelist Chicas Hemoglobin (Bld) [Mass/Vol] 13.0 g/dL Normal 12.0-16.0 [facility] Comment on above: Performed By: #### C BC #### [facility] [address] [address] [address] Evangelist Chicas IG # 0.04 10e3/ul Critically high 0.00-0.03 [facility] Comment on above: Performed By: #### C BC #### [facility] [address] [address] [address] Evangelist Chicas IG % 0.3 % Normal 0.0-0.5 [facility] Comment on above: Performed By: #### C BC #### [facility] [address] [address] [address] Evangelist Chicas LYMPH # 0.5 103/ul Critically low 1.2-3.8 [facility] Comment on above: Performed By: #### C BC #### [facility] [address] [address] [address] Evangelist Chicas Lymphocytes/100 WBC (Bld) 3.7 % Critically low 20.5-60.0 [facility] Comment on above: Performed By: #### C BC #### [facility] [address] [address] [address] Evangelist Chicas MANUAL DIFF REQ NO Normal [facility] Comment on above: Performed By: #### C BC #### [facility] [address] [address] [address] Evangelist Chicas MCH (RBC) [Entitic mass] 29.5 pg Normal 26.7-34.0 [facility] Comment on above: Performed By: #### C BC #### [facility] [address] [address] [address] Evangelist Chicas MCHC (RBC) [Mass/Vol] 31.3 g/dL Normal 29.9-35.2 [facility] Comment on above: Performed By: #### C BC #### [facility] [address] [address] [address] Evangelist Chicas MCV (RBC) [Entitic vol] 94.3 fL Normal 81.0-99.0 [facility] Comment on above: Performed By: #### C BC #### [facility] [address] [address] [address] Evangelist Chicas MONO # 0.2 103/ul Critically low 0.3-0.8 [facility] Comment on above: Performed By: #### C BC #### [facility] [address] [place] [address] Dr. Evangelist Chicas Monocytes/100 WBC (Bld) 1.3 % Critically low 1.7-12.0 [facility] Comment on above: Performed By: #### C BC #### [facility] [address] [place] [address] Dr. Evangelist Chicas NEUT # 12.4 103/ul Critically high 1.4-6.5 [facility] Comment on above: Performed By: #### C BC #### [facility] [address] [place] [address] Dr. Evangelist Chicas Neutrophils/100 WBC (Bld) 94.6 % Critically high 43.0-75.0 [facility] Comment on above: Performed By: #### C BC #### [facility] [address] [place] [address] Dr. Evangelist Chicas Platelet mean volume (Bld) [Entitic vol] 9.9 fL Normal 9.5-13.5 [facility] Comment on above: Performed By: #### C BC #### [facility] [address] [address] [address] Evangelist Chicas PLT 189 103/ul Normal 150-450 [facility] Comment on above: Performed By: #### C BC #### [facility] [address] [place], [place] [address] Dr. Evangelist Chicas RBC 4.40 106/ul Normal 4.20-5.40 [facility] Comment on above: Performed By: #### C BC #### [facility] [address] [place], [place] [address] Dr. Evangelist Chicas WBC 13.1 103/ul Critically high 4.0-11.0 [facility] Comment on above: Performed By: #### C BC #### [facility] [address] [place], [place] [address] Dr. Evangelist Chicas ECHOCARDIO M/2D COMPLETEon 0 11-12-2022 ECHOCARDIO M/2D COMPLETE Patient: LAWRENCE HARRISON Exam Date: 11/12/2022 : 1965 Gender:F Ordering : DR MANE LEE . Admission #: [id number] Family : DR VAMSHI MORGAN . Order #: [id number] CLICK HERE TO VIEW EXAM ECHOCARDIOGRAM REPORT [...] M.D. on 11/12/2022 at 13:56 Normal [facility] PROF CHEM 8 (BAS METB)on Anion gap [Moles/Vol] 10.2 mmol/L Normal [facility] Comment on above: Performed By: #### B MP #### [facility] [address] [address] [address] Evangelist Chicas Calcium [Mass/Vol] 9.2 mg/dL Normal 8.5-10.1 [facility] Comment on above: Performed By: #### B MP #### [facility] [address] [address] [address] Evangelist Chicas Chloride [Moles/Vol] 99 mmol/L Normal 98-107 [facility] Comment on above: Performed By: #### B MP #### [facility] [address] [address] [address] Evangelist Chicas CO2 [Moles/Vol] 31.5 mmol/L Normal 21.0-32.0 [facility] Comment on above: Performed By: #### B MP #### [facility] [address] [place] [address] Dr. Evangelist Chicas Creatinine [Mass/Vol] 0.87 mg/dL Normal 0.55-1.02 [facility] Comment on above: Performed By: #### B MP #### [facility] [address] [address] [address] Evangelist Chicas EGFR-AF SAMMARINESE >60 Normal >=60 [facility] Comment on above: Performed By: #### B MP #### [facility] [address] [address] [address] Evangelist Chicas EGFR-NON AF SAMMARINESE >60 Normal >=60 [facility] Comment on above: Performed By: #### B MP #### [facility] [address] [place] [address] Dr. Evangelist Chicas Glucose [Mass/Vol] 168 mg/dL Critically high 74-106 [facility] Comment on above: Performed By: #### B MP #### [facility] [address] [address] [address] Evangelist Chicas Potassium [Moles/Vol] 3.7 mmol/L Normal 3.5-5.1 [facility] [facility] Comment on above: Performed By: #### B MP #### [facility] [address] [address] [address] Evangelist Chicas Sodium [Moles/Vol] 137 mmol/L Normal 136-145 [facility] Comment on above: Performed By: #### B MP #### [facility] [address] [place] [address] Dr. Evangelist Chicas Urea nitrogen [Mass/Vol] 28.0 mg/dL Critically high 7.0-18.0 [facility] Comment on above: Performed By: #### B MP #### [facility] [address] [place] [address] Dr. Evangelist Chicas Urea nitrogen/Creatinin e [Mass ratio] 32.2 mg/mg Normal [facility] Comment on above: Performed By: #### B MP #### [facility] [address] [place] [address] Dr. Evangelist Chicas CBC AUTO DIFFon 11-11-2022 BASO # 0.0 103/ul Normal 0.0-0.1 [facility] Comment on above: Performed By: #### C BC #### [facility] [address] [place] [address] Dr. Evangelist Chicas Basophils/100 WBC (Bld) 0.2 % Normal 0.2-2.0 [facility] Comment on above: Performed By: #### C BC #### [facility] [address] [place] [address] Dr. Evangelist Chicsa EO # 0.0 103/ul Normal 0.0-0.7 [facility] Comment on above: Performed By: #### C BC #### [facility] [address] [place] [address] Dr. Evangelist Chicas Eosinophils/100 WBC (Bld) 0.0 % Critically low 0.9-7.0 [facility] Comment on above: Performed By: #### C BC #### [facility] [address] [place] [address] Dr. Evangelist Chicas Erythrocyte distribution width (RBC) [Ratio] 12.7 % Normal 11.0-15.0 [facility] Comment on above: Performed By: #### C BC #### [facility] [address] [place] [address] Dr. Evangelist Chicas Hematocrit (Bld) [Volume fraction] 41.7 % Normal 36.0-48.0 [facility] Comment on above: Performed By: #### C BC #### [facility] [address] [place] [address] Dr. Evangelist Chicas Hemoglobin (Bld) [Mass/Vol] 13.0 g/dL Normal 12.0-16.0 [facility] Comment on above: Performed By: #### C BC #### [facility] [address] [place] [address] Dr. Evangelist Chicas IG # 0.03 10e3/ul Normal 0.00-0.03 [facility] Comment on above: Performed By: #### C BC #### [facility] [address] [place] [address] Dr. Evangelist Chicas IG % 0.5 % Normal 0.0-0.5 [facility] Comment on above: Performed By: #### C BC #### [facility] [address] [place] [address] Dr. Evangelist Chicas LYMPH # 0.4 103/ul Critically low 1.2-3.8 [facility] Comment on above: Performed By: #### C BC #### [facility] [address] [place] [address] Dr. Evangelist Chicas Lymphocytes/100 WBC (Bld) 5.8 % Critically low 20.5-60.0 [facility] Comment on above: Performed By: #### C BC #### [facility] [address] [place] [address] Dr. Evangelist Chicas MANUAL DIFF REQ NO Normal [facility] Comment on above: Performed By: #### C BC #### [facility] [address] [address] [address] Evangelist Chicas MCH (RBC) [Entitic mass] 29.3 pg Normal 26.7-34.0 [facility] Comment on above: Performed By: #### C BC #### [facility] [address] [place] [address] Dr. Evangelist Chicas MCHC (RBC) [Mass/Vol] 31.2 g/dL Normal 29.9-35.2 [facility] Comment on above: Performed By: #### C BC #### [facility] [address] [place] [address] Dr. Evangelist Chicas MCV (RBC) [Entitic vol] 93.9 fL Normal 81.0-99.0 [facility] Comment on above: Performed By: #### C BC #### [facility] [address] [place] [address] Dr. Evangelist Chicas MONO # 0.0 103/ul Critically low 0.3-0.8 [facility] Comment on above: Performed By: #### C BC #### [facility] [address] [place] [address] Dr. Evangelist Chicas Monocytes/100 WBC (Bld) 0.6 % Critically low 1.7-12.0 [facility] Comment on above: Performed By: #### C BC #### [facility] [address] [place] [address] Dr. Evangelist Chicas NEUT # 6.0 103/ul Normal 1.4-6.5 [facility] Comment on above: Performed By: #### C BC #### [facility] [address] [place] [address] Dr. Evangelist Chicas Neutrophils/100 WBC (Bld) 92.9 % Critically high 43.0-75.0 [facility] Comment on above: Performed By: #### C BC #### [facility] [address] [place] [address] Dr. Evangelist Chicas Platelet mean volume (Bld) [Entitic vol] 10.8 fL Normal 9.5-13.5 [facility] Comment on above: Performed By: #### C BC #### [facility] [address] [address] [address] Evangelist Chicas PLT 141 103/ul Critically low 150-450 [facility] Comment on above: Performed By: #### C BC #### [facility] [address] [address] [address] Evangelist Chicas RBC 4.44 106/ul Normal 4.20-5.40 [facility] Comment on above: Performed By: #### C BC #### [facility] [address] [address] [address] Evangelist Chicas WBC 6.4 103/ul Normal 4.0-11.0 [facility] Comment on above: Performed By: #### C BC #### [facility] [address] [place] [address] Dr. Evangelist Chicas PROF CHEM 8 (BAS METB)on Anion gap [Moles/Vol] 7.5 mmol/L Normal [facility] Comment on above: Performed By: #### B MP #### [facility] [address] [place] [address] Dr. Evangelist Chicas Calcium [Mass/Vol] 8.9 mg/dL Normal 8.5-10.1 [facility] Comment on above: Performed By: #### B MP #### [facility] [address] [place] [address] Dr. Evangelist Chicas Chloride [Moles/Vol] 100 mmol/L Normal 98-107 [facility] Comment on above: Performed By: #### B MP #### [facility] [address] [place] [address] Dr. Evangelist Chicas CO2 [Moles/Vol] 33.9 mmol/L Critically high 21.0-32.0 [facility] Comment on above: Performed By: #### B MP #### [facility] [address] [place] [address] Dr. Evangelist Chicas Creatinine [Mass/Vol] 0.65 mg/dL Normal 0.55-1.02 [facility] Comment on above: Performed By: #### B MP #### [facility] [address] [address] [address] Evangelist Chicas EGFR-AF SAMMARINESE >60 Normal >=60 [facility] Comment on above: Performed By: #### B MP #### [facility] [address] [address] [address] Evangelist Chicas EGFR-NON AF SAMMARINESE >60 Normal >=60 [facility] Comment on above: Performed By: #### B MP #### [facility] [address] [address] [address] Evangelist Chicas Glucose [Mass/Vol] 152 mg/dL Critically high 74-106 [facility] [place] Comment on above: Performed By: #### B MP #### [facility] [address] [place] [address] Dr. Evangelist Chicas Potassium [Moles/Vol] 4.4 mmol/L Normal 3.5-5.1 [facility] Comment on above: Performed By: #### B MP #### [facility] [address] [place] [address] Dr. Evangelist Chicas Sodium [Moles/Vol] 137 mmol/L Normal 136-145 [facility] Comment on above: Performed By: #### B MP #### [facility] [address] [place] [address] Dr. Evangelist Chicas Urea nitrogen [Mass/Vol] 16.0 mg/dL Normal 7.0-18.0 [facility] Comment on above: Performed By: #### B MP #### [facility] [address] [address] [address] Evangelist Chicas Urea nitrogen/Creatinin e [Mass ratio] 24.6 mg/mg Normal [facility] Comment on above: Performed By: #### B MP #### [facility] [address] [place] [address] Dr. Evangelist Chicas BNPon 11-10-2022 Natriuretic peptide B (Bld) [Mass/Vol] 330.0 pg/mL Normal <=900.0 [facility] Comment on above: Performed By: #### B MP #### [facility] [address] [place] [address] Dr. Evangelist Chicas CARDIAC LIS ADMITon 023 CK [Catalytic activity/Vol] 40 U/L Normal 26-192 [facility] Comment on above: Performed By: #### D DIM #### [facility] [address] [place] [address] Dr. Evangelist Chicas CK.MB [Mass/Vol] 1.06 ng/mL Normal <=3.60 [facility] Comment on above: Performed By: #### D DIM #### [facility] [address] [place] [address] Dr. Evangelist Chicas HSTROP 21.6 pg/mL Normal 4.0-51.3 [facility] Comment on above: Result Comment: CUT- OFF POINTS HAVE BEEN ESTABLISHED BASED ON THE FOURTH UNIVERSAL DEFINITIONS OF MYOCARDIAL INFARCTION. THE UPPER REFERENCE LIMIT (URL) OF TROPONIN, DEFINED THE 99TH PERCENTILE OF cTnI DISTRIBUTION IN A REFERENCE POPULATION, HAS BEEN CONFIRMED THE DECISION THRESHOLD FOR [place] DIAGNOSIS. Performed By: #### D DIM #### [facility] [address] [place] [address] Dr. Evangelist Chicas VANNA 41 ng/mL Normal 9-82 [facility] Comment on above: Performed By: #### D DIM #### [facility] [address] [place] [address] Dr. Evangelist Chicas CBC AUTO DIFFon 11-10-2022 BASO # 0.1 103/ul Normal 0.0-0.1 [facility] Comment on above: Performed By: #### B MP #### [facility] [address] [place] [address] Dr. Evangelist Chicas Basophils/100 WBC (Bld) 0.7 % Normal 0.2-2.0 [facility] Comment on above: Performed By: #### B MP #### [facility] [address] [place] [address] Dr. Evangelist Chicas EO # 0.1 103/ul Normal 0.0-0.7 [facility] Comment on above: Performed By: #### B MP #### [facility] [address] [place] [address] Dr. Evangelist Chicas Eosinophils/100 WBC (Bld) 1.1 % Normal 0.9-7.0 [facility] Comment on above: Performed By: #### B MP #### [facility] [address] [place] [address] Dr. Evangelist Chicas Erythrocyte distribution width (RBC) [Ratio] 12.8 % Normal 11.0-15.0 [facility] Comment on above: Performed By: #### B MP #### [facility] [address] [place] [address] Dr. Evangelist Chicas Hematocrit (Bld) [Volume fraction] 41.1 % Normal 36.0-48.0 [facility] Comment on above: Performed By: #### B MP #### [facility] [address] [place] [address] Dr. Evangelist Chicas Hemoglobin (Bld) [Mass/Vol] 13.2 g/dL Normal 12.0-16.0 [facility] Comment on above: Performed By: #### B MP #### [facility] [address] [place] [address] Dr. Evangelist Chicas IG # 0.02 10e3/ul Normal 0.00-0.03 [facility] Comment on above: Performed By: #### B MP #### [facility] [address] [place] [address] Dr. Evangelist Chicas IG % 0.3 % Normal 0.0-0.5 [facility] Comment on above: Performed By: #### B MP #### [facility] [address] [place] [address] Dr. Evangelist Chicas LYMPH # 0.7 103/ul Critically low 1.2-3.8 [facility] Comment on above: Performed By: #### B MP #### [facility] [address] [place] [address] Dr. Evangelist Chicas Lymphocytes/100 WBC (Bld) 9.5 % Critically low 20.5-60.0 [facility] Comment on above: Performed By: #### B MP #### [facility] [address] [place] [address] Dr. Evangelist Chicas MANUAL DIFF REQ NO Normal [facility] Comment on above: Performed By: #### B MP #### [facility] [address] [place] [address] Dr. Evangelist Chicas MCH (RBC) [Entitic mass] 29.6 pg Normal 26.7-34.0 [facility] Comment on above: Performed By: #### B MP #### [facility] [address] [place] [address] Dr. Evangelist Chicas MCHC (RBC) [Mass/Vol] 32.1 g/dL Normal 29.9-35.2 [facility] Comment on above: Performed By: #### B MP #### [facility] [address] [place] [address] Dr. Evangelist Chicas MCV (RBC) [Entitic vol] 92.2 fL Normal 81.0-99.0 [facility] Comment on above: Performed By: #### B MP #### [facility] [address] [place] [address] Dr. Evangelist Chicas MONO # 0.6 103/ul Normal 0.3-0.8 [facility] Comment on above: Performed By: #### B MP #### [facility] [address] [place] [address] Dr. Evangelist Chicas Monocytes/100 WBC (Bld) 8.1 % Normal 1.7-12.0 [facility] Comment on above: Performed By: #### B MP #### [facility] [address] [place] [address] Dr. Evangelist Chicas NEUT # 6.1 103/ul Normal 1.4-6.5 [facility] Comment on above: Performed By: #### B MP #### [facility] [address] [place] [address] Dr. Evangelist Chicas Neutrophils/100 WBC (Bld) 80.3 % Critically high 43.0-75.0 [facility] Comment on above: Performed By: #### B MP #### [facility] [address] [place] [address] Dr. Evangelist Chicas Platelet mean volume (Bld) [Entitic vol] 9.8 fL Normal 9.5-13.5 [facility] Comment on above: Performed By: #### B MP #### [facility] [address] [address] [address] Evangelist Chicas PLT 180 103/ul Normal 150-450 [facility] Comment on above: Performed By: #### B MP #### [facility] [address] [address] [address] Evangelist Chicas RBC 4.46 106/ul Normal 4.20-5.40 [facility] Comment on above: Performed By: #### B MP #### [facility] [address] [address] [address] Evangelist Chicas WBC 7.6 103/ul Normal 4.0-11.0 [facility] Comment on above: Performed By: #### B MP #### [facility] [address] [address] [address] Evangelist Chicas CTA CHEST WO W [...] DEL KLAUS Date: 2022-11-10 17:30 Normal [facility] Covid-19 PCR (CVDTB)on SARS-CoV-2 (COVID-19) RNA SHENG+probe Ql (Unsp spec) Not detected Normal NOT DETECTED [facility] Comment on above: Result Comment: [...] for this test is supported by the Nurse'S Aides Teacher of Health and Human Service's declaration that [...] used). Performed By: #### B MP #### [facility] [address] [place] [address] Dr. Evangelist Chicas D-DIMERon 11-10-2022 D-DIMER 0.63 mg/L FEU Critically high <=0.[address] [facility] Comment on above: Performed By: #### D DIM #### [facility] [address] [place], [place] [address] Dr. Evangelist Chicas D-DIMER COMMENTS SEE BELOW Normal [facility] Comment on above: Result Comment: [...] hospitalization. Performed By: #### D DIM #### [facility] [address] [place] [address] Dr. Evangelist HINOJOSA URINE PROFILEon 3 Bilirubin Ql (U) Negative Normal NEGATIVE [facility] Comment on above: Performed By: #### U MICRO, ERUR #### [facility] [address] [place] [address] Dr. Evangelist Chicas Clarity (U) CLEAR Normal CLEAR [facility] Comment on above: Performed By: #### U MICRO, ERUR #### [facility] [address] [place] [address] Dr. Evangelist Chicas Color (U) LT. YELLOW Normal YELLOW [facility] Comment on above: Performed By: #### U MICRO, ERUR #### [facility] [address] [place] [address] Dr. Evangelist Chicas ERUAHD A micrscopic examination will be performed if indicated. Normal [facility] Comment on above: Performed By: #### U MICRO, ERUR #### [facility] [address] [place] [address] Dr. Evangelist Chicas Glucose Ql (U) Negative Normal NEGATIVE [facility] Comment on above: Performed By: #### U MICRO, ERUR #### [facility] [address] [place] [address] Dr. Evangelist Chicas Hemoglobin Ql (U) TRACE-INTACT Abnormal NEGATIVE [facility] Comment on above: Performed By: #### U MICRO, ERUR #### [facility] [address] [place] [address] Dr. Evangelist Chicas Ketones Ql (U) Negative Normal NEGATIVE [facility] Comment on above: Performed By: #### U MICRO, ERUR #### [facility] [address] [place] [address] Dr. Evangelist Chicas LEUKOCYTES Negative Normal NEGATIVE [facility] Comment on above: Performed By: #### U MICRO, ERUR #### [facility] [address] [place] [address] Dr. Evangelist Chicas Nitrite Ql (U) Negative Normal NEGATIVE [facility] Comment on above: Performed By: #### U MICRO, ERUR #### [facility] [address] [place] [address] Dr. Evangelist Chicas pH (U) 6.0 [pH] Normal 5-9 [facility] Comment on above: Performed By: #### U MICRO, ERUR #### [facility] [address] [place] [address] Dr. Evangelist Chicas SPEC GRAVITY 1.010 Normal 1.005-<=1.025 [facility] Comment on above: Performed By: #### U MICRO, ERUR #### [facility] [address] [place] [address] Dr. Evangelist Chicas UA PROTEIN Negative Normal NEGATIVE/ TRACE [facility] Comment on above: Performed By: #### U MICRO, ERUR #### [facility] [address] [place] [address] Dr. Evangelist Chicas UR MICRO IND INDICATED Normal [facility] Comment on above: Performed By: #### U MICRO, ERUR #### [facility] [address] [place] [address] Dr. Evangelist Chicas Urobilinogen Qn (U) 0.2 {Amalia'U}/dL Normal 0.2 - 1.0 [facility] Comment on above: Performed By: #### U MICRO, ERUR #### [facility] [address] [place] [address] Dr. Evangelist Chicas [facility] Normal [facility] Comment on above: Result Comment: Nega tive for Flu A protein angiten. Infection due to Flu A cannot be ruled out. Flu A angiten in the sample may be below the detection limit of the test. Performed By: #### D DIM #### [facility] [address] [place] [address] Dr. Evangelist Chicas INFLUBNEGH SEE BELOW Normal [facility] Comment on above: Result Comment: Nega tive for Flu B protein antigen. Infection due to Flu B cannot be ruled out. Flu B antigen in the sample may be below the detection limit of the test. Performed By: #### D DIM #### [facility] [address] [place] [address] Dr. Evangelist Chicas INFLUENZA A AG Negative Normal NEGATIVE SEE COMMENT [facility] Comment on above: Performed By: #### D DIM #### [facility] [address] [place] [address] Dr. Evangelist Chicas INFLUENZA B AG Negative Normal NEGATIVE SEE COMMENT [facility] Comment on above: Performed By: #### D DIM #### [facility] [address] [place] [address] Dr. Evangelist Chicas PROF 14(COMP METB)on 023 Albumin [Mass/Vol] 3.1 g/dL Critically low 3.4-5.0 [facility] Comment on above: Performed By: #### B MP #### [facility] [address] [place] [address] Dr. Evangelist Chicas Albumin/Globulin [Mass ratio] 0.7 {ratio} Normal [facility] Comment on above: Performed By: #### B MP #### [facility] [address] [place] [address] Dr. Evangelist Chicas ALP [Catalytic activity/Vol] 108 U/L Normal 46-116 [facility] Comment on above: Performed By: #### B MP #### [facility] [address] [place] [address] Dr. Evangelist Chicas ALT [Catalytic activity/Vol] 20 U/L Normal 14-59 [facility] Comment on above: Performed By: #### B MP #### [facility] [address] [place] [address] Dr. Evangelist Chicas Anion gap [Moles/Vol] 6.0 mmol/L Normal [facility] Comment on above: Performed By: #### B MP #### [facility] [address] [place] [address] Dr. Evangelist Chicas AST [Catalytic activity/Vol] 16 U/L Normal 15-37 [facility] Comment on above: Performed By: #### B MP #### [facility] [address] [address] [address] Evangelist Chicas Bilirubin [Mass/Vol] 0.6 mg/dL Normal 0.2-1.0 [facility] Comment on above: Performed By: #### B MP #### [facility] [address] [address] [address] Evangelist Chicas Calcium [Mass/Vol] 9.1 mg/dL Normal 8.5-10.1 [facility] Comment on above: Performed By: #### B MP #### [facility] [address] [address] [address] Evangelist Chicas Chloride [Moles/Vol] 97 mmol/L Critically low 98-107 [facility] Comment on above: Performed By: #### B MP #### [facility] [address] [place] [address] Dr. Evangelist Chicas CO2 [Moles/Vol] 36.9 mmol/L Critically high 21.0-32.0 [facility] Comment on above: Performed By: #### B MP #### [facility] [address] [address] [address] Evangelist Chicas Creatinine [Mass/Vol] 0.71 mg/dL Normal 0.55-1.02 [facility] Comment on above: Performed By: #### B MP #### [facility] [address] [place] [address] Dr. Evangelist Chicas EGFR-AF SAMMARINESE >60 Normal >=60 [facility] Comment on above: Performed By: #### B MP #### [facility] [address] [address] [address] Evangelist Chicas EGFR-NON AF SAMMARINESE >60 Normal >=60 [facility] Comment on above: Performed By: #### B MP #### [facility] [address] [place] [address] Dr. Evangelist Chicas Globulin (S) [Mass/Vol] 4.4 g/dL Normal [facility] Comment on above: Performed By: #### B MP #### [facility] [address] [place] [address] Dr. Evangelist Chicas Glucose [Mass/Vol] 124 mg/dL Critically high 74-106 [facility] [place] Comment on above: Performed By: #### B MP #### [facility] [address] [address] [address] Evangelist Chicas Potassium [Moles/Vol] 3.9 mmol/L Normal 3.5-5.1 [facility] Comment on above: Performed By: #### B MP #### [facility] [address] [address] [address] Evangelist Chicas Protein [Mass/Vol] 7.5 g/dL Normal 6.4-8.[address] [facility] Comment on above: Performed By: #### B MP #### [facility] [address] [place] [address] Dr. Evangelist Chicas Sodium [Moles/Vol] 136 mmol/L Normal 136-145 [facility] Comment on above: Performed By: #### B MP #### [facility] [address] [place] [address] Dr. Evangelist Chicas Urea nitrogen [Mass/Vol] 17.0 mg/dL Normal 7.0-18.0 [facility] Comment on above: Performed By: #### B MP #### [facility] [address] [place] [address] Dr. Evangelist Chicas Urea nitrogen/Creatinin e [Mass ratio] 23.9 mg/mg Normal [facility] Comment on above: Performed By: #### B MP #### [facility] [address] [place] [address] Dr. Evangelist Chicas URINE MICROSCOPIC ONLYon BACTERIA NONE SEEN Normal NONE SEEN [facility] Comment on above: Performed By: #### U MICRO, ERUR #### [facility] [address] [place] [address] Dr. Evangelist Chicas Bacteria identified Cx Nom (U) NOT INDICATED Normal [facility] Comment on above: Performed By: #### U MICRO, ERUR #### [facility] [address] [place] [address] Dr. Evangelist Chicas CAST NONE SEEN Normal NONE SEEN [facility] Comment on above: Performed By: #### U MICRO, ERUR #### [facility] [address] [address] [address] Evangelist Chicas Crystals LM Nom (Urine sed) NONE SEEN Normal NONE SEEN [facility] Comment on above: Performed By: #### U MICRO, ERUR #### [facility] [address] [place] [address] Dr. Evangelist Chicas Epithelial cells LM Ql (Urine sed) FEW Abnormal NONE SEEN /RARE [facility] Comment on above: Performed By: #### U MICRO, ERUR #### [facility] [address] [place] [address] Dr. Evangelist Chicas MUCOUS NONE SEEN Normal NONE SEEN [facility] Comment on above: Performed By: #### U MICRO, ERUR #### [facility] [address] [place] [address] Dr. Evangelist Chicas RBC 0-2 Normal 0-2 [facility] Comment on above: Performed By: #### U MICRO, ERUR #### [facility] [address] [place] [address] Dr. Evangelist Chicas WBC NONE SEEN Normal NONE SEEN [facility] Comment on above: Performed By: #### U MICRO, ERUR #### [facility] [address] [place] [address] Dr. Evangelist Chicas XR CHEST 1 Von [...] JH JAIN Date: 2022-11-10 15:24 Normal [facility] Vital Signs Date Time Vital Sign Value Performing Clinician Faci lity 12-23-2023 13:24-0500 Body height 160 cm Mane Lee MD Work Phone: [facility] 12-23-2023 13:24-0500 Body mass index (BMI) [Ratio] 49.25 kg/m2 Mane Lee MD Work Phone: [facility] 12-23-2023 13:24-0500 Body temperature 97.3 [degF] Mane Lee MD Work Phone: [facility] 12-23-2023 13:24-0500 Body weight 126.1 kg Mane Lee MD Work Phone: [facility] 12-23-2023 13:24-0500 Diastolic blood pressure 80 mm[Hg] Mane Lee MD Work Phone: [facility] 12-23-2023 13:24-0500 Heart rate 96 /min Mane Lee MD Work Phone: [facility] 12-23-2023 13:24-0500 SaO2% (BldA) [Mass fraction] 96 % Mane Lee MD Work Phone: [facility] 12-23-2023 13:24-0500 Systolic blood pressure 140 mm[Hg] Mane Lee MD Work Phone: [facility] Healthcare Encounters Encounter Date Encounter Type Care Provider Facility Start: 01-26-2024 End: 01-27-2024 ambulatory Corine Frye MD Facility:[facility] Start: 01-22-2024 End: 01-22-2024 ambulatory MANE LEE Not Available Start: 12-29-2023 End: 12-30-2023 ambulatory Corine Frye MD Facility:[facility] Start: 12-23-2023 End: 12-23-2023 ambulatory MANE LEE Not Available Start: 12-23-2023 Bamboo flowsheet Mane Lee MD Work Phone: [facility] Start: 12-23-2023 Amy flowsheet Mane Lee MD Work Phone: [facility] Start: 12-23-2023 End: 12-23-2023 Office outpatient visit 25 minutes Mane Lee MD Work Phone: [facility] Comment on above: Essential hypertensi on, benign (CMS/HCC) (Primary Dx); Degenerative lumbar spinal stenosis; Lumbar disc herniation with radiculopathy; Leg edema; Chronic obstructive pulmonary disease, unspecified COPD type (CMS/HCC) Start: 12-10-2023 End: 12-10-2023 ambulatory Lakisha Shipman Facility:[facility] Start: 12-10-2023 End: 12-10-2023 ambulatory MD Mane Lee Work Phone: [facility] Work Phone: Start: 12-10-2023 End: 12-10-2023 Patient encounter procedure MD Mane Lee Work Phone: [facility] Work Phone: Start: 11-26-2023 End: 11-26-2023 ambulatory MANE LEE Not Available Start: 10-31-2023 End: 10-31-2023 ambulatory MANE LEE Not Available Start: 08-25-2023 End: 08-26-2023 ambulatory Corine Frye MD Facility:[facility] Start: 01-29-2023 End: 01-30-[address] MANE [...] Screening for malign ant neoplasm of colon [facility] Start: 02-24-2024 End: 02-24-2024 Patient encounter procedure 02/24/2024 9:00 AM EDT [facility] [address] [place] [address] Mane Lee MD [address] [place] [phone] [facility] Start: 01-30-2024 Screening for malign ant neoplasm of breast Mammogram [facility] Start: 12-23-2023 End: 12-23-2023 Patient encounter procedure 12/23/2023 1:15 PM EST Office Visit [facility] [address] [place] [phone] Mane Lee MD [address] [place] [phone] Arrived [facility] Comment on above: Arrived Start: 1993 Screening for malign ant neoplasm of cervix [facility] Start: 1984 Screening for malign ant neoplasm of cervix Pap Smear [facility] Start: 1965 Screening for malign ant neoplasm of colon [facility] Payers Date Payer Category Payer Self-pay 2023 Unknown [id number] 2022 Unknown [id number] 1963 Unknown [id number] 2.16.84 [id number] 1963 Unknown [id number] 2.16.84 [id number] 1963 Unknown [id number] 2.16.84 [id number] 1963 Unknown [id number] 2.16.84 [id number] 1963 Unknown [id number] 2.16.84 [id number] 1963 Unknown [id number] 2.16.840 .[id number] 1963 Unknown [id number] 2.16. [id number] 1963 Unknown [id number] 2.16. [id number] 1963 Unknown [id number] 2.16. [id number] 1959 Unknown [id number] Unknown [facility] [id number] Unknown [id number] 2.16.8 [id number] Social History Date Type Detail Facility Tobacco smoking stat [facility] Unknown if ever smoked [facility] Work Phone: Start: 1965 Sex Assigned At Female [facility] Start: 10-31-2023 Tobacco smoking stat [facility] Smokes tobacco daily [facility] History [...] work until 03/08/24. documented in this encounter [facility] Healthcare Evaluation note Note Date & Type Note Facility Evaluation note No assessment information availa [facility] Work Phone: Evaluation note Note Date [...] content) DATE CREATED AUTHOR 02/02/2023 [facility] DATE CREATED AUTHOR AUTHOR'S ORGANIZ ATION 01/23/2024 [facility] EPIC DATE CREATED AUTHOR AUTHOR'S ORGANIZ ATION 01/31/2024 [facility] DATE CREATED AUTHOR AUTHOR'S ORGANIZ ATION 02/04/2024 [facility] Care Teams (unrecognized sec tion and content) Team Status: Active Member Role Status Dates Mane Lee MD Primary Care Provider Active Team Status: Inactive Member Role Status Dates Mane Lee MD Primary Care Provider Active S tart: December 10, 2023 End: December 10, 2023 BERNICE Blanc Attending Provider Active Start: December 10, 2023 End: December 10, 2023 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 [facility] [address]. provides no warranty or guarantee of the accuracy or completeness of information in this document.
[2024-02-23 10:10] VITALS: BP 136/84; PULSE 88; TEMP 36.3; O2SAT 99
[2024-02-23 10:53] VITALS: BP 135/73; BP 136/62; PULSE 84; O2SAT 95; O2SAT 96
[2024-02-23] MEDS: BUPIVACAINE HCL 0.25% PF 25 MG/10 ML VIAL INJ (10:53)
[2024-02-23] MEDS: LIDOCAINE HCL 2% PF 100 MG/5 ML VIAL INJ (10:53)
--- NOTE | 2024-02-23 10:54 | P.ON_ITS ---
Date of procedure: 02/23/24 Pre-op diagnosis: Lumbar spondylosis without myelopathy Post-op diagnosis: same as pre-op Procedure: Procedure: Bilateral L3-4, L4-5 medial branch block Medications: Bupivacaine 0.25% 6cc The patient was seen and examined in the preoperative holding area.? An informed consent was obtained and placed on the chart.? The patient was brought to the medical procedure unit and placed in the prone position.? A timeout was completed verifying correct patient, procedure site, positioning, plan, and special equipment.? Using aseptic technique, the needle was placed at left L3. Under direct fluoroscopic visualization a Quincke-tipped spinal needle was adv anced to the junction of the superior articulating process with the transverse process at the designated medial branch segment.? Preceded by negative aspiration, the above-mentioned injectate was placed in 1 mL aliquots.? The procedure was repeated at left L4, 5.? The needle was removed and insertion site was covered. The same procedure, at the same levels, was completed on the right side. The patient was taken to the postprocedural recovery area and monitored for an appropriate length of time before found suitable for discharge in the company of a responsible adult. Anesthesia: Local Surgeon: Corine Frye Pathology: none sent Condition: stable Disposition: no change
== END 2024-02-23 10:59 | disposition home or self-care (01) ==
PROVIDERS: PCP Family Medicine; Visit Provider Anesthesiology
DX: M47.816 Spondylosis without myelopathy or radiculopathy, lumbar region (principal)
CPT/HCPCS: 64493; 64494

== ENCOUNTER 2024-03-03 10:06 | Outpatient (OUT) | payer BC, SELFPAY ==
--- OUTSIDE RECORDS SUMMARY | 2024-03-03 10:22 | XMS_ITS | CCD ---
Author Organization [facility] Care Team Providers Care Hair Boiler Name Role Phone JESUS, DR MANE Avina Primary Care Unavailable EDDIE ., DR VAMSHI Correa Consulting Unavailable JESUS, DR MANE Avina Admitting Unavailable JESUS, DR MANE Avina Attending Unavailable SUSY, DR JH Hunter Consulting Unavailable JEUSS, DR MANE Avina Consulting Unavailable HI ., MR BUCKLEY Consulting Unavailable STRAWSER, DEL Consulting Unavailable CHOU, MALCOLM Consulting Unavailable EJSUS, DR MANE Avina Admitting Unavailable JESUS, DR MANE Avina Attending Unavailable JESUS, DR MANE Avina Primary Care Unavailable CALAIS, DR NIA Uriostegui Consulting Unavailable JESUS, DR MANE Avina Consulting Unavailable MD Mane Lee Primary Care Provider [phone] BERNICE Shipman Attending Provider Mane Lee MD [...] (1 source) Ciprofloxacin Drug Allergy 10-19-2014 [facility] Repository (3 sources) Ciprofloxacin Drug Allergy 10-31-2023 [facility] (1 source) Ciprofloxacin Drug Allergy 12-10-2023 [facility] Repository Medications Current Medications Medication Drug Class(es) Dates Sig (Normalized) Sig (Original) [id number] 200 actuat albuterol 0.09 mg/actuat metered dose [...] 10-31-2023 Chronic Other aftercare (1 source) Other intermediate (current) drug therapy; 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: [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 CURRENT DRUG THERAPY] Onset: 11-20-2022 Episodic Other aftercare (1 source) 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; 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: [SUPERVISOR HOT DIP PLATING CURRNT USE OPIATE ANALGES] Onset: 11-20-2022 Episodic [...] 12-10-2023 XR lumbar spine 6V w bending [facility] [place] [address] XRay Report Signed Patient: Lawrence Harrison MR#: [id number] 8 : 1965 Acct:[id number] Age/Sex: 58 / F ADM Date: 12/10/23 Loc: XD Room: Type: [facility] Attending Dr: Lakisha AMBROSIOC Copies to: [...] Smith Jr., D.O.12/10/2023 3:58 PM Dictation Location: [place] [address] Transcribed By: [facility] 12/10/23 1558 Dictated By: Owen Smith Jr DO 12/10/23 1557 Signed By: 12/10/23 1558 Normal [facility] HEMOGLOBINon 01-29-2023 Hemoglobin (Bld) [Mass/Vol] 14.6 g/dL Normal 12.0-16.0 [facility] Comment on above: Performed By: #### H GB #### [facility] [address] [place] [address] Dr. Evangelist Chicas MG MAMM SCREEN 3D MANJIT CADon 01-29-2023 MG MAMM SCREEN 3D MANJIT CAD Patient: LAWRENCE HARRISON Exam Date: 01/29/2023 : 1965 Gender:F Ordering : DR MANE LEE . Admission #: [id number] Family : Order #: [id number] CLICK HERE TO VIEW EXAM RADIOLOGY REPORT [...] rectal cancer at age 73. LOCATION: [facility] BREAST COMPOSITION: Scattered areas fibroglandular density. [...] MD on 01/29/2023 at 09:29 Normal [facility] CBC AUTO DIFFon 11-14-2022 BASO # 0.0 103/ul Normal 0.0-0.1 [facility] Comment on above: Performed By: #### B MP #### [facility] [address] [place] [address] Dr. Evangelist Chicas Basophils/100 WBC (Bld) 0.1 % Critically low 0.2-2.0 [facility] Comment on above: Performed By: #### B MP #### [facility] [address] [place] [address] Dr. Evangelist Chicas EO # 0.0 103/ul Normal 0.0-0.7 [facility] Comment on above: Performed By: #### B MP #### [facility] [address] [place] [address] [address] Evangelist Chicas Eosinophils/100 WBC (Bld) 0.1 % Critically low 0.9-7.0 [facility] Comment on above: Performed By: #### B MP #### [facility] [address] [place] [address] Dr. Evangelist Chicas Erythrocyte distribution width (RBC) [Ratio] 13.1 % Normal 11.0-15.0 [facility] Comment on above: Performed By: #### B MP #### [facility] [address] [place] [address] Dr. Evangelist Chicas Hematocrit (Bld) [Volume fraction] 41.4 % Normal 36.0-48.0 [facility] Comment on above: Performed By: #### B MP #### [facility] [address] [place] [address] Dr. Evangelist Chicas Hemoglobin (Bld) [Mass/Vol] 13.0 g/dL Normal 12.0-16.0 [facility] Comment on above: Performed By: #### B MP #### [facility] [address] [place] [address] Dr. Evangelist Chicas IG # 0.03 10e3/ul Normal 0.00-0.03 [facility] Comment on above: Performed By: #### B MP #### [facility] [address] [place] [address] Dr. Evangelist Chicas IG % 0.4 % Normal 0.0-0.5 [facility] Comment on above: Performed By: #### B MP #### [facility] [address] [place] [address] Dr. Evangelist Chicas LYMPH # 0.4 103/ul Critically low 1.2-3.8 [facility] Comment on above: Performed By: #### B MP #### [facility] [address] [place] [address] Dr. Evangelist Chicas Lymphocytes/100 WBC (Bld) 4.7 % Critically low 20.5-60.0 [facility] Comment on above: Performed By: #### B MP #### [facility] [address] [place] [address] [address] Evangelist Chicas MANUAL DIFF REQ NO Normal [facility] Comment on above: Performed By: #### B MP #### [facility] [address] [place] [address] [address] Evangelist Chicas MCH (RBC) [Entitic mass] 29.1 pg Normal 26.7-34.0 [facility] Comment on above: Performed By: #### B MP #### [facility] [address] [place] [address] [address] Evangelist Chicas MCHC (RBC) [Mass/Vol] 31.4 g/dL Normal 29.9-35.2 [facility] Comment on above: Performed By: #### B MP #### [facility] [address] [place] [address] Dr. Evangelist Chicas MCV (RBC) [Entitic vol] 92.8 fL Normal 81.0-99.0 [facility] Comment on above: Performed By: #### B MP #### [facility] [address] [place] [address] Dr. Evangelist Chicas MONO # 0.1 103/ul Critically low 0.3-0.8 [facility] Comment on above: Performed By: #### B MP #### [facility] [address] [place] [address] Dr. Evangelist Chicas Monocytes/100 WBC (Bld) 1.8 % Normal 1.7-12.0 [facility] Comment on above: Performed By: #### B MP #### [facility] [address] [place] [address] Dr. Evangelist Chicas NEUT # 6.8 103/ul Critically high 1.4-6.5 [facility] Comment on above: Performed By: #### B MP #### [facility] [address] [place] [address] Dr. Evangelist Chicas Neutrophils/100 WBC (Bld) 92.9 % Critically high 43.0-75.0 [facility] Comment on above: Performed By: #### B MP #### [facility] [address] [place] [address] [address] Evangelist Chicas Platelet mean volume (Bld) [Entitic vol] 11.3 fL Normal 9.5-13.5 [facility] Comment on above: Performed By: #### B MP #### [facility] [address] [place] [address] Dr. Evangelist Chicas PLT 109 103/ul Critically low 150-450 [facility] Comment on above: Performed By: #### B MP #### [facility] [address] [place] [address] [address] Evangelist Chicas RBC 4.46 106/ul Normal 4.20-5.40 [facility] Comment on above: Performed By: #### B MP #### [facility] [address] [place] [address] Dr. Evangelist Chicas WBC 7.4 103/ul Normal 4.0-11.0 [facility] Comment on above: Performed By: #### B MP #### [facility] [address] [place] [address] Dr. Evangelist Chicas PROF CHEM 8 (BAS METB)on Anion gap [Moles/Vol] 11.8 mmol/L Normal [facility] Comment on above: Performed By: #### B MP #### [facility] [address] [place] [address] Dr. Evangelist Chicas Calcium [Mass/Vol] 9.3 mg/dL Normal 8.5-10.1 [facility] Comment on above: Performed By: #### B MP #### [facility] [address] [place] [address] Dr. Evangelist Chicas Chloride [Moles/Vol] 99 mmol/L Normal 98-107 [facility] Comment on above: Performed By: #### B MP #### [facility] [address] [place] [address] Dr. Evangelist Chicas CO2 [Moles/Vol] 31.6 mmol/L Normal 21.0-32.0 [facility] Comment on above: Performed By: #### B MP #### [facility] [address] [place] [address] Dr. Evangelist Chicas Creatinine [Mass/Vol] 0.75 mg/dL Normal 0.55-1.02 [facility] Comment on above: Performed By: #### B MP #### [facility] [address] [place] [address] Dr. Evangelist Chicas EGFR-AF BRUNEIAN >60 Normal >=60 [facility] Comment on above: Performed By: #### B MP #### [facility] [address] [place] [address] Dr. Evangelist Chicas EGFR-NON AF BRUNEIAN >60 Normal >=60 [facility] Comment on above: Performed By: #### B MP #### [facility] [address] [place] [address] Dr. Evangelist Chicas Glucose [Mass/Vol] 162 mg/dL Critically high 74-106 T [facility] Comment on above: Performed By: #### B MP #### [facility] [address] [place] [address] Dr. Evangelist Chicas Potassium [Moles/Vol] 4.4 mmol/L Normal 3.5-5.1 [facility] Comment on above: Performed By: #### B MP #### [facility] [address] [place] [address] Dr. Evangelist Chicas Sodium [Moles/Vol] 138 mmol/L Normal 136-145 [facility] Comment on above: Performed By: #### B MP #### [facility] [address] [place] [address] Dr. Evangelist Chicas Urea nitrogen [Mass/Vol] 32.0 mg/dL Critically high 7.0-18.0 [facility] Comment on above: Performed By: #### B MP #### [facility] [address] [place] [address] Dr. Evangelist Chicas Urea nitrogen/Creatinin e [Mass ratio] 42.7 mg/mg Normal [facility] Comment on above: Performed By: #### B MP #### [facility] [address] [place] [address] Dr. Evangelist Chicas CBC AUTO DIFFon 11-13-2022 BASO # 0.0 103/ul Normal 0.0-0.1 [facility] Comment on above: Performed By: #### C BC #### [facility] [address] [place] [address] Dr. Evangelist Chicas Basophils/100 WBC (Bld) 0.1 % Critically low 0.2-2.0 [facility] Comment on above: Performed By: #### C BC #### [facility] [address] [place] [address] Dr. Evangelist Chicas EO # 0.0 103/ul Normal 0.0-0.7 [facility] Comment on above: Performed By: #### C BC #### [facility] [address] [place] [address] Dr. Evangelist Chicas Eosinophils/100 WBC (Bld) 0.0 % Critically low 0.9-7.0 [facility] Comment on above: Performed By: #### C BC #### [facility] [address] [place] [address] Dr. Evangelist Chicas Erythrocyte distribution width (RBC) [Ratio] 12.9 % Normal 11.0-15.0 [facility] Comment on above: Performed By: #### C BC #### [facility] [address] [place] [address] Dr. Evangelist Chicas Hematocrit (Bld) [Volume fraction] 39.0 % Normal 36.0-48.0 [facility] Comment on above: Performed By: #### C BC #### [facility] [address] [place] [address] Dr. Evangelist Chicas Hemoglobin (Bld) [Mass/Vol] 12.3 g/dL Normal 12.0-16.0 [facility] Comment on above: Performed By: #### C BC #### [facility] [address] [place] [address] Dr. Evangelist Chicas IG # 0.04 10e3/ul Critically high 0.00-0.03 [facility] Comment on above: Performed By: #### C BC #### [facility] [address] [place] [address] Dr. Evangelist Chicas IG % 0.4 % Normal 0.0-0.5 [facility] Comment on above: Performed By: #### C BC #### [facility] [address] [place] [address] Dr. Evangelist Chicas LYMPH # 0.5 103/ul Critically low 1.2-3.8 [facility] Comment on above: Performed By: #### C BC #### [facility] [address] [place] [address] Dr. Evangelist Chicas Lymphocytes/100 WBC (Bld) 4.5 % Critically low 20.5-60.0 [facility] Comment on above: Performed By: #### C BC #### [facility] [address] [place] [address] Dr. Evangelist Chicas MANUAL DIFF REQ NO Normal [facility] Comment on above: Performed By: #### C BC #### [facility] [address] [place] [address] Dr. Evangelist Chicas MCH (RBC) [Entitic mass] 29.7 pg Normal 26.7-34.0 [facility] Comment on above: Performed By: #### C BC #### [facility] [address] [place] [address] Dr. Evangelist Chicas MCHC (RBC) [Mass/Vol] 31.5 g/dL Normal 29.9-35.2 [facility] Comment on above: Performed By: #### C BC #### [facility] [address] [place] [address] Dr. Evangelist Chicas MCV (RBC) [Entitic vol] 94.2 fL Normal 81.0-99.0 [facility] Comment on above: Performed By: #### C BC #### [facility] [address] [place] [address] Dr. Evangelist Chicas MONO # 0.2 103/ul Critically low 0.3-0.8 [facility] Comment on above: Performed By: #### C BC #### [facility] [address] [place] [address] Dr. Evangelist Chicas Monocytes/100 WBC (Bld) 1.5 % Critically low 1.7-12.0 [facility] Comment on above: Performed By: #### C BC #### [facility] [address] [place] [address] Dr. Evangelist Chicas NEUT # 10.5 103/ul Critically high 1.4-6.5 [facility] Comment on above: Performed By: #### C BC #### [facility] [address] [place] [address] Dr. Evangelist Chicas Neutrophils/100 WBC (Bld) 93.5 % Critically high 43.0-75.0 [facility] Comment on above: Performed By: #### C BC #### [facility] [address] [place] [address] Dr. Evangelist Chicas Platelet mean volume (Bld) [Entitic vol] 10.4 fL Normal 9.5-13.5 [facility] Comment on above: Performed By: #### C BC #### [facility] [address] [place] [address] Dr. Evangelist Chicas PLT 169 103/ul Normal 150-450 [facility] Comment on above: Performed By: #### C BC #### [facility] [address] [place] [address] Dr. Evangelist Chicas RBC 4.14 106/ul Critically low 4.20-5.40 [facility] Comment on above: Performed By: #### C BC #### [facility] [address] [place] [address] Dr. Evangelist Chicas WBC 11.2 103/ul Critically high 4.0-11.0 [facility] Comment on above: Performed By: #### C BC #### [facility] [address] [place] [address] Dr. Evangelist Chicas CULTURE SPUTUMon 11-13-2022 CULTURE SPUTUM Culture Observations : NORMAL RESPIRATORY SHAINA. Normal [facility] Comment on above: Performed By: #### B MP #### [facility] [address] [place] [address] Dr. Evangelist Chicas PROF CHEM 8 (BAS METB)on Anion gap [Moles/Vol] 9.2 mmol/L Normal [facility] Comment on above: Performed By: #### D DIM #### [facility] [address] [address] [address] Evangelist Chicas Calcium [Mass/Vol] 9.1 mg/dL Normal 8.5-10.1 [facility] Comment on above: Performed By: #### D DIM #### [facility] [address] [address] [address] Evangelist Chicas Chloride [Moles/Vol] 100 mmol/L Normal 98-107 [facility] Comment on above: Performed By: #### D DIM #### [facility] [address] [address] [address] Evangelist Chicas CO2 [Moles/Vol] 33.8 mmol/L Critically high 21.0-32.0 [facility] Comment on above: Performed By: #### D DIM #### [facility] [address] [place] [address] Dr. Evangelist Chicas Creatinine [Mass/Vol] 0.85 mg/dL Normal 0.55-1.02 [facility] Comment on above: Performed By: #### D DIM #### [facility] [address] [place] [address] Dr. Evangelist Chicas EGFR-AF BRUNEIAN >60 Normal >=60 [facility] Comment on above: Performed By: #### D DIM #### [facility] [address] [address] [address] Evangelist Chicas EGFR-NON AF BRUNEIAN >60 Normal >=60 [facility] Comment on above: Performed By: #### D DIM #### [facility] [address] [address] [address] Evangelist Chicas Glucose [Mass/Vol] 151 mg/dL Critically high 74-106 [facility] Comment on above: Performed By: #### D DIM #### [facility] [address] [place] [address] Dr. Evangelist Chicas Potassium [Moles/Vol] 4.0 mmol/L Normal 3.5-5.1 [facility] Comment on above: Performed By: #### D DIM #### [facility] [address] [place] [address] Dr. Evangelist Chicas Sodium [Moles/Vol] 139 mmol/L Normal 136-145 [facility] Comment on above: Performed By: #### D DIM #### [facility] [address] [place] [address] Dr. Evangelist Chicas Urea nitrogen [Mass/Vol] 29.0 mg/dL Critically high 7.0-18.0 [facility] Comment on above: Performed By: #### D DIM #### [facility] [address] [place] [address] Dr. Evangelist Chicas Urea nitrogen/Creatinin e [Mass ratio] 34.1 mg/mg Normal [facility] Comment on above: Performed By: #### D DIM #### [facility] [address] [place] [address] Dr. Evangelist Chicas CBC AUTO DIFFon 11-12-2022 BASO # 0.0 103/ul Normal 0.0-0.1 [facility] Comment on above: Performed By: #### C BC #### [facility] [address] [place] [address] Dr. Evangelist Chicas Basophils/100 WBC (Bld) 0.1 % Critically low 0.2-2.0 [facility] Comment on above: Performed By: #### C BC #### [facility] [address] [place] [address] Dr. Evangelist Chicas EO # 0.0 103/ul Normal 0.0-0.7 [facility] Comment on above: Performed By: #### C BC #### [facility] [address] [place] [address] Dr. Evangelist Chicas Eosinophils/100 WBC (Bld) 0.0 % Critically low 0.9-7.0 [facility] Comment on above: Performed By: #### C BC #### [facility] [address] [place] [address] Dr. Evangelist Chicas Erythrocyte distribution width (RBC) [Ratio] 12.8 % Normal 11.0-15.0 [facility] Comment on above: Performed By: #### C BC #### [facility] [address] [address] [address] Evangelist Chicas Hematocrit (Bld) [Volume fraction] 41.5 % Normal 36.0-48.0 [facility] Comment on above: Performed By: #### C BC #### [facility] [address] [address] [address] Evangelist Chicas Hemoglobin (Bld) [Mass/Vol] 13.0 g/dL Normal 12.0-16.0 [facility] Comment on above: Performed By: #### C BC #### [facility] [address] [address] [address] Evangelist Chicas IG # 0.04 10e3/ul Critically high 0.00-0.03 [facility] Comment on above: Performed By: #### C BC #### [facility] [address] [address] [address] Evangelist Chicas IG % 0.3 % Normal 0.0-0.5 [facility] Comment on above: Performed By: #### C BC #### [facility] [address] [address] [address] Evangelist Chicas LYMPH # 0.5 103/ul Critically low 1.2-3.8 [facility] Comment on above: Performed By: #### C BC #### [facility] [address] [address] [address] Evangelist Chicas Lymphocytes/100 WBC (Bld) 3.7 % Critically low 20.5-60.0 [facility] Comment on above: Performed By: #### C BC #### [facility] [address] [address] [address] Evangelist Chicas MANUAL DIFF REQ NO Normal [facility] Comment on above: Performed By: #### C BC #### [facility] [address] [address] [address] Evangelist Chicas MCH (RBC) [Entitic mass] 29.5 pg Normal 26.7-34.0 [facility] Comment on above: Performed By: #### C BC #### [facility] [address] [address] [address] Evangelist Chicas MCHC (RBC) [Mass/Vol] 31.3 g/dL Normal 29.9-35.2 [facility] Comment on above: Performed By: #### C BC #### [facility] [address] [address] [address] Evangelist Chicas MCV (RBC) [Entitic vol] 94.3 fL Normal 81.0-99.0 [facility] Comment on above: Performed By: #### C BC #### [facility] [address] [address] [address] Evangelist Chicas MONO # 0.2 103/ul Critically low 0.3-0.8 [facility] Comment on above: Performed By: #### C BC #### [facility] [address] [place] [address] Dr. Evangelist Chicas Monocytes/100 WBC (Bld) 1.3 % Critically low 1.7-12.0 [facility] Comment on above: Performed By: #### C BC #### [facility] [address] [place] [address] Dr. Evangelist Chicas NEUT # 12.4 103/ul Critically high 1.4-6.5 [facility] Comment on above: Performed By: #### C BC #### [facility] [address] [place] [address] Dr. Evangelist Chicas Neutrophils/100 WBC (Bld) 94.6 % Critically high 43.0-75.0 [facility] Comment on above: Performed By: #### C BC #### [facility] [address] [place] [address] Dr. Evangelist Chicas Platelet mean volume (Bld) [Entitic vol] 9.9 fL Normal 9.5-13.5 [facility] Comment on above: Performed By: #### C BC #### [facility] [address] [address] [address] Evangelist Chicas PLT 189 103/ul Normal 150-450 [facility] Comment on above: Performed By: #### C BC #### [facility] [address] [place], [place] [address] Dr. Evangelist Chicas RBC 4.40 106/ul Normal 4.20-5.40 [facility] Comment on above: Performed By: #### C BC #### [facility] [address] [place] [address] Dr. Evangelist Chicas WBC 13.1 103/ul Critically high 4.0-11.0 [facility] Comment on above: Performed By: #### C BC #### [facility] [address] [place], [place] [address] Dr. Evangelist Chicas ECHOCARDIO M/2D COMPLETEon 0 11-12-2022 ECHOCARDIO M/2D COMPLETE Patient: LAWRENCE HARRISON Exam Date: 11/12/2022 : 1965 Gender:F Ordering : DR MANE LEE . Admission #: [id number] Family : DR VAMSHI MORGAN . Order #: [id number] CLICK HERE TO VIEW EXAM ECHOCARDIOGRAM REPORT [...] M.D. on 11/12/2022 at 13:56 Normal [facility] PROF CHEM 8 (BAS METB)on Anion gap [Moles/Vol] 10.2 mmol/L Normal [facility] Comment on above: Performed By: #### B MP #### [facility] [address] [address] [address] Evangelist Chicas Calcium [Mass/Vol] 9.2 mg/dL Normal 8.5-10.1 [facility] Comment on above: Performed By: #### B MP #### [facility] [address] [address] [address] Evangelist Chicas Chloride [Moles/Vol] 99 mmol/L Normal 98-107 [facility] Comment on above: Performed By: #### B MP #### [facility] [address] [address] [address] Evangelist Chicas CO2 [Moles/Vol] 31.5 mmol/L Normal 21.0-32.0 [facility] Comment on above: Performed By: #### B MP #### [facility] [address] [place] [address] Dr. Evangelist Chicas Creatinine [Mass/Vol] 0.87 mg/dL Normal 0.55-1.02 [facility] Comment on above: Performed By: #### B MP #### [facility] [address] [address] [address] Evangelist Chicas EGFR-AF BRUNEIAN >60 Normal >=60 [facility] Comment on above: Performed By: #### B MP #### [facility] [address] [address] [address] Evangelist Chicas EGFR-NON AF BRUNEIAN >60 Normal >=60 [facility] Comment on above: Performed By: #### B MP #### [facility] [address] [place] [address] Dr. Evangelist Chicas Glucose [Mass/Vol] 168 mg/dL Critically high 74-106 [facility] Comment on above: Performed By: #### B MP #### [facility] [address] [address] [address] Evangelist Chicas Potassium [Moles/Vol] 3.7 mmol/L Normal 3.5-5.1 [facility] Comment on above: Performed By: #### B MP #### [facility] [address] [address] [address] Evangelist Chicas Sodium [Moles/Vol] 137 mmol/L Normal 136-145 [facility] Comment on above: Performed By: #### B MP #### [facility] [address] [place] [address] Dr. Evangelist Chicas Urea nitrogen [Mass/Vol] 28.0 mg/dL Critically high 7.0-18.0 [facility] Comment on above: Performed By: #### B MP #### [facility] [address] [place] [address] Dr. Evangelist Chicas Urea nitrogen/Creatinin e [Mass ratio] 32.2 mg/mg Normal [facility] Comment on above: Performed By: #### B MP #### [facility] [address] [place] [address] Dr. Evangelist Chicas CBC AUTO DIFFon 11-11-2022 BASO # 0.0 103/ul Normal 0.0-0.1 [facility] Comment on above: Performed By: #### C BC #### [facility] [address] [place] [address] Dr. Evangelist Chicas Basophils/100 WBC (Bld) 0.2 % Normal 0.2-2.0 [facility] Comment on above: Performed By: #### C BC #### [facility] [address] [place] [address] Dr. Evangelist Chicas EO # 0.0 103/ul Normal 0.0-0.7 [facility] Comment on above: Performed By: #### C BC #### [facility] [address] [place] [address] Dr. Evangelist Chicas Eosinophils/100 WBC (Bld) 0.0 % Critically low 0.9-7.0 [facility] Comment on above: Performed By: #### C BC #### [facility] [address] [place] [address] Dr. Evangelist Chicas Erythrocyte distribution width (RBC) [Ratio] 12.7 % Normal 11.0-15.0 [facility] Comment on above: Performed By: #### C BC #### [facility] [address] [place] [address] Dr. Evangelist Chicas Hematocrit (Bld) [Volume fraction] 41.7 % Normal 36.0-48.0 [facility] Comment on above: Performed By: #### C BC #### [facility] [address] [place] [address] Dr. Evangelist Chicas Hemoglobin (Bld) [Mass/Vol] 13.0 g/dL Normal 12.0-16.0 [facility] Comment on above: Performed By: #### C BC #### [facility] [address] [place] [address] Dr. Evangelist Chicas IG # 0.03 10e3/ul Normal 0.00-0.03 [facility] Comment on above: Performed By: #### C BC #### [facility] [address] [place] [address] Dr. Evangelist Chicas IG % 0.5 % Normal 0.0-0.5 [facility] Comment on above: Performed By: #### C BC #### [facility] [address] [place] [address] Dr. Evangelist Chicas LYMPH # 0.4 103/ul Critically low 1.2-3.8 [facility] Comment on above: Performed By: #### C BC #### [facility] [address] [place] [address] Dr. Evangelist Chicas Lymphocytes/100 WBC (Bld) 5.8 % Critically low 20.5-60.0 [facility] Comment on above: Performed By: #### C BC #### [facility] [address] [place] [address] Dr. Evangelist Chicas MANUAL DIFF REQ NO Normal [facility] Comment on above: Performed By: #### C BC #### [facility] [address] [address] [address] Evangelist Chicas MCH (RBC) [Entitic mass] 29.3 pg Normal 26.7-34.0 [facility] Comment on above: Performed By: #### C BC #### [facility] [address] [place] [address] Dr. Evangelist Chicas MCHC (RBC) [Mass/Vol] 31.2 g/dL Normal 29.9-35.2 [facility] Comment on above: Performed By: #### C BC #### [facility] [address] [place] [address] Dr. Evangelist Chicas MCV (RBC) [Entitic vol] 93.9 fL Normal 81.0-99.0 [facility] Comment on above: Performed By: #### C BC #### [facility] [address] [place] [address] Dr. Evangelist Chicas MONO # 0.0 103/ul Critically low 0.3-0.8 [facility] Comment on above: Performed By: #### C BC #### [facility] [address] [place] [address] Dr. Evangelist Chicas Monocytes/100 WBC (Bld) 0.6 % Critically low 1.7-12.0 [facility] Comment on above: Performed By: #### C BC #### [facility] [address] [place] [address] Dr. Evangelist Chicas NEUT # 6.0 103/ul Normal 1.4-6.5 [facility] Comment on above: Performed By: #### C BC #### [facility] [address] [place] [address] Dr. Evangelist Chicas Neutrophils/100 WBC (Bld) 92.9 % Critically high 43.0-75.0 [facility] Comment on above: Performed By: #### C BC #### [facility] [address] [place] [address] Dr. Evangelist Chicas Platelet mean volume (Bld) [Entitic vol] 10.8 fL Normal 9.5-13.5 [facility] Comment on above: Performed By: #### C BC #### [facility] [address] [address] [address] Evangelist Chicas PLT 141 103/ul Critically low 150-450 [facility] Comment on above: Performed By: #### C BC #### [facility] [address] [address] [address] Evangelist Chicas RBC 4.44 106/ul Normal 4.20-5.40 [facility] Comment on above: Performed By: #### C BC #### [facility] [address] [address] [address] Evangelist Chicas WBC 6.4 103/ul Normal 4.0-11.0 [facility] Comment on above: Performed By: #### C BC #### [facility] [address] [place] [address] Dr. Evangelist Chicas PROF CHEM 8 (BAS METB)on Anion gap [Moles/Vol] 7.5 mmol/L Normal [facility] Comment on above: Performed By: #### B MP #### [facility] [address] [place] [address] Dr. Evangelist Chicas Calcium [Mass/Vol] 8.9 mg/dL Normal 8.5-10.1 [facility] Comment on above: Performed By: #### B MP #### [facility] [address] [place] [address] Dr. Evangelist Chicas Chloride [Moles/Vol] 100 mmol/L Normal 98-107 [facility] Comment on above: Performed By: #### B MP #### [facility] [address] [place] [address] Dr. Evangelist Chicas CO2 [Moles/Vol] 33.9 mmol/L Critically high 21.0-32.0 [facility] Comment on above: Performed By: #### B MP #### [facility] [address] [place] [address] Dr. Evangelist Chicas Creatinine [Mass/Vol] 0.65 mg/dL Normal 0.55-1.02 [facility] Comment on above: Performed By: #### B MP #### [facility] [address] [address] [address] Evangelist Chicas EGFR-AF BRUNEIAN >60 Normal >=60 [facility] Comment on above: Performed By: #### B MP #### [facility] [address] [address] [address] Evangelist Chicas EGFR-NON AF BRUNEIAN >60 Normal >=60 [facility] Comment on above: Performed By: #### B MP #### [facility] [address] [address] [address] Evangelist Chicas Glucose [Mass/Vol] 152 mg/dL Critically high 74-106 [facility] Comment on above: Performed By: #### B MP #### [facility] [address] [place] [address] Dr. Evangelist Chicas Potassium [Moles/Vol] 4.4 mmol/L Normal 3.5-5.1 [facility] Comment on above: Performed By: #### B MP #### [facility] [address] [place] [address] Dr. Evangelist Chicas Sodium [Moles/Vol] 137 mmol/L Normal 136-145 [facility] Comment on above: Performed By: #### B MP #### [facility] [address] [place] [address] Dr. Evangelist Chicas Urea nitrogen [Mass/Vol] 16.0 mg/dL Normal 7.0-18.0 [facility] Comment on above: Performed By: #### B MP #### [facility] [address] [address] [address] Evangelist Chicas Urea nitrogen/Creatinin e [Mass ratio] 24.6 mg/mg Normal [facility] Comment on above: Performed By: #### B MP #### [facility] [address] [place] [address] Dr. Evangelist Chicas BNPon 11-10-2022 Natriuretic peptide B (Bld) [Mass/Vol] 330.0 pg/mL Normal <=900.0 [facility] Comment on above: Performed By: #### B MP #### [facility] [address] [place] [address] Dr. Evangelist Chicas CARDIAC LIS ADMITon 023 CK [Catalytic activity/Vol] 40 U/L Normal 26-192 [facility] Comment on above: Performed By: #### D DIM #### [facility] [address] [place] [address] Dr. Evangelist Chicas CK.MB [Mass/Vol] 1.06 ng/mL Normal <=3.60 [facility] Comment on above: Performed By: #### D DIM #### [facility] [address] [place] [address] Dr. Evangelist Chicas HSTROP 21.6 pg/mL Normal 4.0-51.3 [facility] Comment on above: Result Comment: CUT- OFF POINTS HAVE BEEN ESTABLISHED BASED ON THE FOURTH UNIVERSAL DEFINITIONS OF MYOCARDIAL INFARCTION. THE UPPER REFERENCE LIMIT (URL) OF TROPONIN, DEFINED THE 99TH PERCENTILE OF cTnI DISTRIBUTION IN A REFERENCE POPULATION, HAS BEEN CONFIRMED THE DECISION THRESHOLD FOR [place] DIAGNOSIS. Performed By: #### D DIM #### [facility] [address] [place] [address] Dr. Evangelist Chicas VANNA 41 ng/mL Normal 9-82 [facility] Comment on above: Performed By: #### D DIM #### [facility] [address] [place] [address] Dr. Evangelist Chicas CBC AUTO DIFFon 11-10-2022 BASO # 0.1 103/ul Normal 0.0-0.1 [facility] Comment on above: Performed By: #### B MP #### [facility] [address] [place] [address] Dr. Evangelist Chicas Basophils/100 WBC (Bld) 0.7 % Normal 0.2-2.0 [facility] Comment on above: Performed By: #### B MP #### [facility] [address] [place] [address] Dr. Evangelist Chicas EO # 0.1 103/ul Normal 0.0-0.7 [facility] Comment on above: Performed By: #### B MP #### [facility] [address] [place] [address] Dr. Evangelist Chicas Eosinophils/100 WBC (Bld) 1.1 % Normal 0.9-7.0 [facility] Comment on above: Performed By: #### B MP #### [facility] [address] [place] [address] Dr. Evangelist Chicas Erythrocyte distribution width (RBC) [Ratio] 12.8 % Normal 11.0-15.0 [facility] Comment on above: Performed By: #### B MP #### [facility] [address] [place] [address] Dr. Evangelist Chicas Hematocrit (Bld) [Volume fraction] 41.1 % Normal 36.0-48.0 [facility] Comment on above: Performed By: #### B MP #### [facility] [address] [place] [address] Dr. Evangelist Chicas Hemoglobin (Bld) [Mass/Vol] 13.2 g/dL Normal 12.0-16.0 [facility] Comment on above: Performed By: #### B MP #### [facility] [address] [place] [address] Dr. Evangelist Chicas IG # 0.02 10e3/ul Normal 0.00-0.03 [facility] Comment on above: Performed By: #### B MP #### [facility] [address] [place] [address] Dr. Evangelist Chicas IG % 0.3 % Normal 0.0-0.5 [facility] Comment on above: Performed By: #### B MP #### [facility] [address] [place] [address] Dr. Evangelist Chicas LYMPH # 0.7 103/ul Critically low 1.2-3.8 [facility] Comment on above: Performed By: #### B MP #### [facility] [address] [place] [address] Dr. Evangelist Chicas Lymphocytes/100 WBC (Bld) 9.5 % Critically low 20.5-60.0 [facility] Comment on above: Performed By: #### B MP #### [facility] [address] [place] [address] Dr. Evangelist Chicas MANUAL DIFF REQ NO Normal [facility] Comment on above: Performed By: #### B MP #### [facility] [address] [place] [address] Dr. Evangelist Chicas MCH (RBC) [Entitic mass] 29.6 pg Normal 26.7-34.0 [facility] Comment on above: Performed By: #### B MP #### [facility] [address] [place] [address] Dr. Evangelist Chicas MCHC (RBC) [Mass/Vol] 32.1 g/dL Normal 29.9-35.2 [facility] Comment on above: Performed By: #### B MP #### [facility] [address] [place] [address] Dr. Evangelist Chicas MCV (RBC) [Entitic vol] 92.2 fL Normal 81.0-99.0 [facility] Comment on above: Performed By: #### B MP #### [facility] [address] [place] [address] Dr. Evangelist Chicas MONO # 0.6 103/ul Normal 0.3-0.8 [facility] Comment on above: Performed By: #### B MP #### [facility] [address] [place] [address] Dr. Evangelist Chicas Monocytes/100 WBC (Bld) 8.1 % Normal 1.7-12.0 [facility] Comment on above: Performed By: #### B MP #### [facility] [address] [place] [address] Dr. Evangelist Chicas NEUT # 6.1 103/ul Normal 1.4-6.5 [facility] Comment on above: Performed By: #### B MP #### [facility] [address] [place] [address] Dr. Evangelist Chicas Neutrophils/100 WBC (Bld) 80.3 % Critically high 43.0-75.0 [facility] Comment on above: Performed By: #### B MP #### [facility] [address] [place] [address] Dr. Evangelist Chicas Platelet mean volume (Bld) [Entitic vol] 9.8 fL Normal 9.5-13.5 [facility] Comment on above: Performed By: #### B MP #### [facility] [address] [address] [address] Evangelist Chicas PLT 180 103/ul Normal 150-450 [facility] Comment on above: Performed By: #### B MP #### [facility] [address] [address] [address] Evangelist Chicas RBC 4.46 106/ul Normal 4.20-5.40 [facility] Comment on above: Performed By: #### B MP #### [facility] [address] [address] [address] Evangelist Chicas WBC 7.6 103/ul Normal 4.0-11.0 [facility] Comment on above: Performed By: #### B MP #### [facility] [address] [address] [address] Evangelist Chicas CTA CHEST WO W [...] DEL KLAUS Date: 2022-11-10 17:30 Normal [facility] Covid-19 PCR (CVDTB)on SARS-CoV-2 (COVID-19) RNA SHENG+probe Ql (Unsp spec) Not detected Normal NOT DETECTED [facility] Comment on above: Result Comment: When [...] for this test is supported by the District Sales Manager of Health and Human Service's declaration that [...] used). Performed By: #### B MP #### [facility] [address] [place] [address] Dr. Evangelist Chicas D-DIMERon 11-10-2022 D-DIMER 0.63 mg/L FEU Critically high <=0.59 [facility] Comment on above: Performed By: #### D DIM #### [facility] [address] [place], [place] [address] Dr. Evangelist Chicas D-DIMER COMMENTS SEE BELOW Normal [facility] Comment on above: Result Comment: Incr [...] hospitalization. Performed By: #### D DIM #### [facility] [address] [place] [address] Dr. Evangelist HINOJOSA URINE PROFILEon 3 Bilirubin Ql (U) Negative Normal NEGATIVE [facility] Comment on above: Performed By: #### U MICRO, ERUR #### [facility] [address] [place] [address] Dr. Evangelist Chicas Clarity (U) CLEAR Normal CLEAR [facility] Comment on above: Performed By: #### U MICRO, ERUR #### [facility] [address] [place] [address] Dr. Evangelist Chicas Color (U) LT. YELLOW Normal YELLOW [facility] Comment on above: Performed By: #### U MICRO, ERUR #### [facility] [address] [place] [address] Dr. Evangelist Chicas ERUAHD A micrscopic examination will be performed if indicated. Normal [facility] Comment on above: Performed By: #### U MICRO, ERUR #### [facility] [address] [place] [address] Dr. Evangelist Chicas Glucose Ql (U) Negative Normal NEGATIVE [facility] Comment on above: Performed By: #### U MICRO, ERUR #### [facility] [address] [place] [address] Dr. Evangelits Chicas Hemoglobin Ql (U) TRACE-INTACT Abnormal NEGATIVE [facility] Comment on above: Performed By: #### U MICRO, ERUR #### [facility] [address] [place] [address] Dr. Evangelist Chicas Ketones Ql (U) Negative Normal NEGATIVE [facility] Comment on above: Performed By: #### U MICRO, ERUR #### [facility] [address] [place] [address] Dr. Evangelist Chicas LEUKOCYTES Negative Normal NEGATIVE [facility] Comment on above: Performed By: #### U MICRO, ERUR #### [facility] [address] [place] [address] Dr. Evangelist Chicas Nitrite Ql (U) Negative Normal NEGATIVE [facility] Comment on above: Performed By: #### U MICRO, ERUR #### [facility] [address] [place] [address] Dr. Evangelist Chicas pH (U) 6.0 [pH] Normal 5-9 [facility] Comment on above: Performed By: #### U MICRO, ERUR #### [facility] [address] [place] [address] Dr. Evangelist Chicas SPEC GRAVITY 1.010 Normal 1.005-<=1.025 [facility] Comment on above: Performed By: #### U MICRO, ERUR #### [facility] [address] [place] [address] Dr. Evangelist Chicas UA PROTEIN Negative Normal NEGATIVE/ TRACE [facility] Comment on above: Performed By: #### U MICRO, ERUR #### [facility] [address] [place] [address] Dr. Evangelist Chicas UR MICRO IND INDICATED Normal [facility] Comment on above: Performed By: #### U MICRO, ERUR #### [facility] [address] [place] [address] Dr. Evangelist Chicas Urobilinogen Qn (U) 0.2 {Amalia'U}/dL Normal 0.2 - 1.0 [facility] Comment on above: Performed By: #### U MICRO, ERUR #### [facility] [address] [place] [address] Dr. Evangelist Chicas INFLUENZA A AND B AGon 11-10 INFLUCITY OF HOPE, [place] SEE BELOW Normal [facility] Comment on above: Result Comment: Nega tive for Flu A protein angiten. Infection due to Flu A cannot be ruled out. Flu A angiten in the sample may be below the detection limit of the test. Performed By: #### D DIM #### [facility] [address] [place] [address] Dr. Evangelist Chicas INFLUBNEGH SEE BELOW Normal [facility] Comment on above: Result Comment: Nega tive for Flu B protein antigen. Infection due to Flu B cannot be ruled out. Flu B antigen in the sample may be below the detection limit of the test. Performed By: #### D DIM #### [facility] [address] [place] [address] Dr. Evangelist Chicas INFLUENZA A AG Negative Normal NEGATIVE SEE COMMENT [facility] Comment on above: Performed By: #### D DIM #### [facility] [address] [place] [address] Dr. Evangelist Chicas INFLUENZA B AG Negative Normal NEGATIVE SEE COMMENT [facility] Comment on above: Performed By: #### D DIM #### [facility] [address] [place] [address] Dr. Evangelist Chicas PROF 14(COMP METB)on 023 Albumin [Mass/Vol] 3.1 g/dL Critically low 3.4-5.0 [facility] Comment on above: Performed By: #### B MP #### [facility] [address] [place] [address] Dr. Evangelist Chicas Albumin/Globulin [Mass ratio] 0.7 {ratio} Normal [facility] Comment on above: Performed By: #### B MP #### [facility] [address] [place] [address] Dr. Evangelist Chicas ALP [Catalytic activity/Vol] 108 U/L Normal 46-116 [facility] Comment on above: Performed By: #### B MP #### [facility] [address] [place] [address] Dr. Evangelist Chicas ALT [Catalytic activity/Vol] 20 U/L Normal 14-59 [facility] Comment on above: Performed By: #### B MP #### [facility] [address] [place] [address] Dr. Evangelist Chicas Anion gap [Moles/Vol] 6.0 mmol/L Normal [facility] Comment on above: Performed By: #### B MP #### [facility] [address] [place] [address] Dr. Evangelist Chicas AST [Catalytic activity/Vol] 16 U/L Normal 15-37 [facility] Comment on above: Performed By: #### B MP #### [facility] [address] [address] [address] Evangelist Chicas Bilirubin [Mass/Vol] 0.6 mg/dL Normal 0.2-1.0 [facility] Comment on above: Performed By: #### B MP #### [facility] [address] [address] [address] Evangelist Chicas Calcium [Mass/Vol] 9.1 mg/dL Normal 8.5-10.1 [facility] Comment on above: Performed By: #### B MP #### [facility] [address] [address] [address] Evangelist Chicas Chloride [Moles/Vol] 97 mmol/L Critically low 98-107 [facility] Comment on above: Performed By: #### B MP #### [facility] [address] [place] [address] Dr. Evangelist Chicas CO2 [Moles/Vol] 36.9 mmol/L Critically high 21.0-32.0 [facility] Comment on above: Performed By: #### B MP #### [facility] [address] [address] [address] Evangelist Chicas Creatinine [Mass/Vol] 0.71 mg/dL Normal 0.55-1.02 [facility] Comment on above: Performed By: #### B MP #### [facility] [address] [place] [address] Dr. Evangelist Chicas EGFR-AF BRUNEIAN >60 Normal >=60 [facility] Comment on above: Performed By: #### B MP #### [facility] [address] [address] [address] Evangelist Chicas EGFR-NON AF BRUNEIAN >60 Normal >=60 [facility] Comment on above: Performed By: #### B MP #### [facility] [address] [place] [address] Dr. Evangelist Chicas Globulin (S) [Mass/Vol] 4.4 g/dL Normal [facility] Comment on above: Performed By: #### B MP #### [facility] [address] [place] [address] Dr. Evangelist Chicas Glucose [Mass/Vol] 124 mg/dL Critically high 74-106 T [facility] Comment on above: Performed By: #### B MP #### [facility] [address] [address] [address] Evangelist Chicas Potassium [Moles/Vol] 3.9 mmol/L Normal 3.5-5.1 [facility] Comment on above: Performed By: #### B MP #### [facility] [address] [address] [address] Evangelist Chicas Protein [Mass/Vol] 7.5 g/dL Normal 6.4-8.2 [facility] Comment on above: Performed By: #### B MP #### [facility] [address] [place] [address] Dr. Evangelist Chicas Sodium [Moles/Vol] 136 mmol/L Normal 136-145 [facility] Comment on above: Performed By: #### B MP #### [facility] [address] [place] [address] Dr. Evangelist Chicas Urea nitrogen [Mass/Vol] 17.0 mg/dL Normal 7.0-18.0 [facility] Comment on above: Performed By: #### B MP #### [facility] [address] [place] [address] Dr. Evangelist Chicas Urea nitrogen/Creatinin e [Mass ratio] 23.9 mg/mg Normal [facility] Comment on above: Performed By: #### B MP #### [facility] [address] [place] [address] Dr. Evangelist Chicas URINE MICROSCOPIC ONLYon BACTERIA NONE SEEN Normal NONE SEEN [facility] Comment on above: Performed By: #### U MICRO, ERUR #### [facility] [address] [place] [address] Dr. Evangelist Chicas Bacteria identified Cx Nom (U) NOT INDICATED Normal [facility] Comment on above: Performed By: #### U MICRO, ERUR #### [facility] Laboratory [address] [place] [address] Dr. Evangelist Chicas CAST NONE SEEN Normal NONE SEEN [facility] Comment on above: Performed By: #### U MICRO, ERUR #### [facility] [address] [address] [address] Evangelist Chicas Crystals LM Nom (Urine sed) NONE SEEN Normal NONE SEEN [facility] Comment on above: Performed By: #### U MICRO, ERUR #### [facility] [address] [place] [address] Dr. Evangelist Chicas Epithelial cells LM Ql (Urine sed) FEW Abnormal NONE SEEN /RARE [facility] Comment on above: Performed By: #### U MICRO, ERUR #### [facility] [address] [place] [address] Dr. Evangelist Chicas MUCOUS NONE SEEN Normal NONE SEEN [facility] Comment on above: Performed By: #### U MICRO, ERUR #### [facility] [address] [place] [address] Dr. Evangelist Chicas RBC 0-2 Normal 0-2 [facility] Comment on above: Performed By: #### U MICRO, ERUR #### [facility] [address] [place] [address] Dr. Evangelist Chicas WBC NONE SEEN Normal NONE SEEN [facility] Comment on above: Performed By: #### U MICRO, ERUR #### [facility] [address] [place] [address] Dr. Evangelist Chicas XR CHEST 1 Von [...] JH JAIN Date: 2022-11-10 15:24 Normal [facility] Vital Signs Date Time Vital Sign Value Performing Clinician Faci lity 12-23-2023 13:24-0500 Body height 160 cm Mane Lee MD Work Phone: [facility] 12-23-2023 13:24-0500 Body mass index (BMI) [Ratio] 49.25 kg/m2 Mane Lee MD Work Phone: [facility] 12-23-2023 13:24-0500 Body temperature 97.3 [degF] Mane Lee MD Work Phone: [facility] 12-23-2023 13:24-0500 Body weight 126.1 kg Mane Lee MD Work Phone: [facility] 12-23-2023 13:24-0500 Diastolic blood pressure 80 mm[Hg] Mane Lee MD Work Phone: [facility] 12-23-2023 13:24-0500 Heart rate 96 /min Mane Lee MD Work Phone: [facility] 12-23-2023 13:24-0500 SaO2% (BldA) [Mass fraction] 96 % Mane Lee MD Work Phone: [facility] 12-23-2023 13:24-0500 Systolic blood pressure 140 mm[Hg] Mane Lee MD Work Phone: [facility] Healthcare Encounters Encounter Date Encounter Type Care Provider Facility Start: 01-26-2024 End: 01-27-2024 ambulatory Corine Frye MD Facility:[facility] Start: 01-22-2024 End: 01-22-2024 ambulatory MANE LEE Not Available Start: 12-29-2023 End: 12-30-2023 ambulatory Corine Frye MD Facility:[facility] Start: 12-23-2023 End: 12-23-2023 ambulatory MANE LEE Not Available Start: 12-23-2023 Bamboo flowsheet Mane Lee MD Work Phone: [facility] Start: 12-23-2023 Amy flowsheet Mane Lee MD Work Phone: [facility] Start: 12-23-2023 End: 12-23-2023 Office outpatient visit 25 minutes Mane Lee MD Work Phone: [facility] Comment on above: Essential hypertensi on, benign (CMS/HCC) (Primary Dx); Degenerative lumbar spinal stenosis; Lumbar disc herniation with radiculopathy; Leg edema; Chronic obstructive pulmonary disease, unspecified COPD type (CMS/HCC) Start: 12-10-2023 End: 12-10-2023 ambulatory Lakisha Shipman Facility:[facility] Start: 12-10-2023 End: 12-10-2023 ambulatory MD Mane Lee Work Phone: [facility] Work Phone: Start: 12-10-2023 End: 12-10-2023 Patient encounter procedure MD Mane Lee Work Phone: [facility] Work Phone: Start: 11-26-2023 End: 11-26-2023 ambulatory MANE LEE Not Available Start: 10-31-2023 End: 10-31-2023 ambulatory MANE LEE Not Available Start: 08-25-2023 End: 08-26-2023 ambulatory Corine Frye MD Facility:[facility] Start: 01-29-2023 End: 01-30-[address] MANE [...] Screening for malign ant neoplasm of colon [facility] Start: 02-24-2024 End: 02-24-2024 Patient encounter procedure 02/24/2024 9:00 AM EDT [facility] [address] [place] [phone] Mane Lee MD [address] [place] [phone] [facility] Start: 01-30-2024 Screening for malign ant neoplasm of breast Mammogram [facility] Start: 12-23-2023 End: 12-23-2023 Patient encounter procedure 12/23/2023 1:15 PM EST Office Visit [facility] [address] [place] [phone] Mane Lee MD [address] [place] [phone] Arrived [facility] Comment on above: Arrived Start: 1993 Screening for malign ant neoplasm of cervix [facility] Start: 1984 Screening for malign ant neoplasm of cervix Pap Smear [facility] Start: 1963 Screening for malign ant neoplasm of colon [facility] Payers Date Payer Category Payer Self-pay 2023 Unknown [id number] 2022 Unknown [id number] 1963 Unknown [id number] 2.16.84 [id number] 1963 Unknown [id number] 2.16.84 [id number] 1963 Unknown [id number] 2.16.84 [id number] 1963 Unknown [id number] 2.16.84 [id number] 1963 Unknown [id number] 2.16.84 [id number] 1963 Unknown [id number] [id number] .[id number] 1963 Unknown [id number] 2.16. [id number] 1963 Unknown [id number] 2.16. [id number] 1963 Unknown [id number] 2.16. [id number] 1959 Unknown [id number] Unknown [facility] [id number] Unknown [id number] 2.16.8 [id number] Social History Date Type Detail Facility Tobacco smoking stat [facility] Unknown if ever smoked [facility] Work Phone: Start: 1965 Sex Assigned At Female F [facility] Start: 10-31-2023 Tobacco smoking stat [facility] Smokes tobacco daily [facility] History [...] work until 03/08/24. documented in this encounter [facility] Evaluation note Note Date & Type Note Facility Evaluation note No assessment information availa [facility] Work Phone: Evaluation note Note Date & [...] content) DATE CREATED AUTHOR 02/02/2023 [facility] DATE CREATED AUTHOR AUTHOR'S ORGANIZ ATION 01/23/2024 [facility] EPIC DATE CREATED AUTHOR AUTHOR'S ORGANIZ ATION 01/31/2024 [facility] DATE CREATED AUTHOR AUTHOR'S ORGANIZ ATION 02/04/2024 [facility] Teams (unrecognized sec tion and content) Team Status: Active Member Role Status Dates Mane Lee MD Primary Care Provider Active Team Status: Inactive Member Role Status Dates Mane Lee MD Primary Care Provider Active S tart: December 10, 2023 End: December 10, 2023 BERNICE Blanc Attending Provider Active Start: December 10, 2023 End: December 10, 2023 Hair Boiler Relationship Specialty Start Date End Date Mane Lee MD [address] [place] [phone] PCP - General Family Medicine 12/23/23 Hair Boiler Relationship Specialty Start Date End Date Mane Lee MD [address] [place] [phone] PCP - General Family Medicine 12/23/23 [...] BE BASED ON THE PRIMARY CLINICAL RECORDS. [facility]. provides no warranty or guarantee of the accuracy or completeness of information in this document.
--- NOTE | 2024-03-03 10:29 | P.CN_ITS ---
Consult Note: HPI Data of Consult Patient: known to practice within the last 3 years Requesting Physician: Rachael Robles NP Primary Care Provider: Mane Kearney MD Consult Narrative Reason for consult: f/u Narrative: Jazz Juares a pleasant 58 year old female presents for evaluation and management of chronic low back pain with NC. Today pain 5/10, increasing to 10/10, pain increased with standing walking, decreased with rest/lying. Patient has failed conservative measures and greater than 6 weeks of PT. Patient was evaluated by Dr Whitman office who would like her to try injection therapy before consideration of surgical intervention. Patient finding mild benefit from zonegran 100mg HS, celebrex 200mg BID, flexeril 10mg TID, and duloxetine 60mg daily. Patient continues to have moderate to severe pain and decline in functional ability. Patient recently underwent Bilateral L3-4, L4-5 medial branch block #2 with >80% improvement in pain and functional ability. cc:: CC: Rachael Robles NP Review of Systems ROS Status of ROS 10 or more systems reviewed and unremark able except as noted in history and below Musculoskeletal Reports: back pain PFSH PFSH Medical History (Updated 12/25/23 @ 09:10 by Shruti Chowdary) Low back pain ?M54.50 - Low back pain, unspecified (ICD-10) Smoker ?F17.200 - Nicotine dependence, unspecified, uncomplicated (ICD-10) COPD (chronic obstructive pulmonary disease) ?J44.9 - Chronic obstructive pulmonary disease, unspecified (ICD-10) Hypertension ?I10 - Essential (primary) hypertension (ICD-10) Surgical History S/P carpal tunnel release ?Z98.890 - Other specified postprocedural states (ICD-10) S/P endometrial ablation ?Z98.890 - Other specified postprocedural states (ICD-10) Meds Home Medications and Allergies Home Medications ?Medication ?Instructions ?Recorded ?Confirmed ?Type amlodipine 5 mg tablet 5 mg PO DAILY 08/28/23 02/23/24 History celecoxib 200 mg capsule 200 mg PO Q12H PRN pain 08/28/23 02/23/24 History cholecalciferol (vitamin D3) 50 50 mcg PO DAILY 08/28/23 02/23/24 History mcg (2,000 unit) tablet losartan 100 1 tab PO DAILY 08/28/23 02/23/24 History mg-hydrochlorothiazide 25 mg tablet umeclidinium 62.5 mcg-vilanterol 1 inh inhalation Q24H 08/28/23 02/23/24 History 25 mcg/actuation powdr for inhalation (Anoro Ellipta) duloxetine 60 mg capsule,delayed 60 mg PO DAILY #30 caps 10/09/23 02/23/24 Rx release albuterol sulfate 90 mcg/actuation inhalation 12/25/23 History aerosol inhaler zonisamide 50 mg capsule 100 mg PO .HS 12/25/23 02/23/24 History cyclobenzaprine 10 mg tablet 10 mg PO TID 01/14/24 02/23/24 History Allergies Allergy/AdvReac Type Severity Reaction Status Date / Time ciprofloxacin [From Cipro] Allergy Verified 01/26/24 08:50 Exam Constitutional Documenting provider has reviewed patient's vital signs: yes Common normals: no apparent distress, oriented x3, healthy appearing, alert and well nourished General appearance: cooperative HENMT Common normals: normocephalic, hearing grossly normal bilaterally and moist oral mucous membranes Head and scalp: normocephalic Eye Common normals: PERRL Pupil: PERRL Neck & C-Spine Common normals: full ROM General: normal visual inspection Chest Common normals: inspection of chest normal Respiratory Common normals: normal respiratory effort, no retractions and no use of accessory muscles Back & Pelvis Lumbar spine/lower back: ROM limited, pain with ROM and straight leg raise negative bilaterally Other: lumbar facet loading positive at L3-4 L4-5 no radiculopathy on exam sensation intact BLE strength 5/5 in BLE pain increased with standing and walking, decreased with forward flexion and lying down. Extremity Common normals: normal to inspection and full ROM Neuro Common normals: oriented x3, CN's II-XII intact bilaterally, moves all extremities, no focal motor deficits, no sensory deficits noted and deep tendon reflexes 2+ bilaterally Sensorium/orientation: alert Gait (neuro): antalgic Motor exam: strength 5/5 throughout and no movement abnormalities noted Psych Common normals: mental status grossly normal, thought process normal, cooperative, affect normal, speech normal and activity/motor behavior normal Speech: normal speech Thought process: normal thought process Results Additional Findings Additional findings: If on a controlled substance or opioids, I have checked an [place] report on this patient and there are no aberrancies noted in the prescribing history.??If on a controlled substance or opioid a drug screen was completed and reviewed within the last year, and if there has not been a drug screen completed we ordered one today to monitor higher risk, state monitored pain medication use. As part of providing excellent, safe, comprehensive care, the following was completed at our patient's visit: 1. A medication reconciliation and review to ensure accurate knowledge of current/active medications, including asking our patients to inform us about any [id number] medications or herbal remedies/nutritional supplements/alternative remedies. 2. A review to specifically ensure our patients have had annual screening for screening for depression, screening for tobacco use, and screening for unhealthy alcohol use. For concerning screenings had a discussion with the patient, provided patient education, and recommended follow-up with primary care provider when appropriate. If patient noted with a risk of falling, they received education on strength, gait, and balance training to prevent future risk of falling. Assessment and Plan Assessment and Plan (1) Lumbar spondylosis: Assessment and Plan: The patient has had over 3 months of moderate to severe low back pain with functional impairment and inadequate response to conservative care including NSAIDS (unless there are contraindication such as concurrent blood thinners), multiple oral or topical pain medications, and home exercise program/physical therapy.? Patient has completed >6 weeks of guided home exercise program and/or formal physical therapy program without relief of their symptoms.? I have reviewed the imaging of the lumbar spine and no red flags were identified.? The imaging reveals radiographic findings consistent with lumbar spondylosis. The Oswestry Disability Index was completed, and the patient scored a 36%.? We discussed the risks and benefits of the procedure with the patient, and we are NOT planning on using sedation as outlined in the guidelines from Medicare unless there is a documented reason that sedation would be strongly recommended.?? The procedure will be completed with fluoroscopic guidance.? (2) Lumbar stenosis with neurogenic claudication: Assessment and Plan: mild relief of NC symptoms from prior ASHWINI no radicular symptoms on exam (3) Myofascial pain: Plan bilateral L3-4 L4-5 facet medial branch RFA under fluoroscopy Dr Frye reviewed MRI imaging of lumbar spine, with mild stenosis she is not a candidate for vertiflex at this point. Can consider spinal cord stimulator in the future if needed. Smoking cessation discussed continue zonegram 100mg HS continue celebrex 200mg BID, cymbalta 60mg daily, flexeril 10mg TID denies side effects, reporting improvement f/u 1 month after RFA.
== END 2024-03-03 10:07 | disposition home or self-care (01) ==
LOC: PM 10:06
PROVIDERS: PCP Family Medicine; Visit Provider Nurse Practitioner
DX: M47.816 Spondylosis without myelopathy or radiculopathy, lumbar region (principal); M48.062 Spinal stenosis, lumbar region with neurogenic claudication; M79.18 Myalgia, other site
CPT/HCPCS: G0463

== ENCOUNTER 2024-03-22 07:13 | Day surgery (SDC) | payer BC, SELFPAY ==
--- OUTSIDE RECORDS SUMMARY | 2024-03-22 07:16 | XMS_ITS | CCD ---
Author Organization [facility] Care Team Providers Care Bush Regenerator Name Role Phone JESUS, DR MANE Avina [...] JESUS, DR MANE Avina Primary Care Unavailable MILLS, DR NIA Uriosteg[employer] Unavailable JESUS, DR MANE Avina Consulting Unavailable MD Mane Lee Primary Care Provider [phone] KETAN Shipman-C Lakisha Attending Provider Mane Lee MD Primary Care Provider JESUS, MANE Attending Unavailable JESUS, MANE Attending Unavailable JESUS, MANE Attending Unavailable JESUS, MANE Attending Unavailable Umberto, Lakisha Attending Unavailable Umberto, Lakisha Admitting Unavailable Mane Lee Primary Care Unavailable Melva BACK, Corine Puentes Attending Unavailable Melva BACK, Corine Puentes Attending Unavailable Melva BACK, Corine Puentes Attending Unavailable Allergies Allergy Classification Reported Allergen(s) Allergy Type Date of Onset Reaction(s) Facility (1 source) Ciprofloxacin Drug Allergy 10-19-2014 [facility] Repository (3 sources) Ciprofloxacin Drug Allergy 10-31-2023 [facility] (1 source) Ciprofloxacin Drug Allergy 12-10-2023 [facility] Repository Medications Current Medications Medication Drug Class(es) Dates Sig (Normalized) Sig (Original) [id number] 200 actuat albuterol 0.09 mg/actuat metered dose [...] 10-31-2023 Chronic Other aftercare (1 source) Other jail (current) drug therapy; 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: [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] Onset: 11-20-2022 Episodic Other aftercare (1 source) [facility] (current) use of opiate analgesic; 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: [[facility] CURRNT USE OPIATE ANALGES] Onset: 11-20-2022 Episodic [...] 12-10-2023 XR lumbar spine 6V w bending [facility] [place] [address] XRay Report Signed Patient: Lawrence Harrison MR#: [id number] 8 : 1965 Acct:[id number] Age/Sex: 58 / F ADM Date: 12/10/23 Loc: XD Room: Type[facility] Attending Dr: Lakisha AMBROSIOC Copies to: [...] Smith Jr., D.O.12/10/2023 3:58 PM Dictation Location: [place] [address] Transcribed By: [facility] 12/10/23 1558 Dictated By: Owen Smith Jr DO 12/10/23 1557 Signed By: 12/10/23 1558 Normal [facility] HEMOGLOBINon 01-29-2023 Hemoglobin (Bld) [Mass/Vol] 14.6 g/dL Normal 12.0-16.0 [facility] Comment on above: Performed By: #### H GB #### [facility] [address] [place] [address] Dr. Evangelist Chicas MG MAMM SCREEN 3D MANJIT CADon 01-29-2023 MG MAMM SCREEN 3D MANJIT CAD Patient: LAWRENCE HARRISON Exam Date: 01/29/2023 : 1965 Gender:F Ordering : DR MANE LEE . Admission #: [id number] Family : Order #: [id number] CLICK HERE TO VIEW EXAM RADIOLOGY REPORT [...] rectal cancer at age 73. LOCATION: [facility] BREAST COMPOSITION: Scattered areas fibroglandular [...] MD on 01/29/2023 at 09:29 Normal [facility] CBC AUTO DIFFon 11-14-2022 BASO # 0.0 103/ul Normal 0.0-0.1 [facility] Comment on above: Performed By: #### B MP #### [facility] [address] [place] [address] Dr. Evangelist Chicas Basophils/100 WBC (Bld) 0.1 % Critically low 0.2-2.0 [facility] Comment on above: Performed By: #### B MP #### [facility] [address] [place] [address] Dr. Evangelist Chicas EO # 0.0 103/ul Normal 0.0-0.7 [facility] Comment on above: Performed By: #### B MP #### [facility] [address] [place] [address] [address] Evangelist Chicas Eosinophils/100 WBC (Bld) 0.1 % Critically low 0.9-7.0 [facility] Comment on above: Performed By: #### B MP #### [facility] [address] [place] [address] Dr. Evangelist Chicas Erythrocyte distribution width (RBC) [Ratio] 13.1 % Normal 11.0-15.0 [facility] Comment on above: Performed By: #### B MP #### [facility] [address] [place] [address] Dr. Evangelist Chicas Hematocrit (Bld) [Volume fraction] 41.4 % Normal 36.0-48.0 [facility] Comment on above: Performed By: #### B MP #### [facility] [address] [place] [address] Dr. Evangelist Chicas Hemoglobin (Bld) [Mass/Vol] 13.0 g/dL Normal 12.0-16.0 [facility] Comment on above: Performed By: #### B MP #### [facility] [address] [place] [address] Dr. Evangelist Chicas IG # 0.03 10e3/ul Normal 0.00-0.03 [facility] Comment on above: Performed By: #### B MP #### [facility] [address] [place] [address] Dr. Evangelist Chicas IG % 0.4 % Normal 0.0-0.5 [facility] Comment on above: Performed By: #### B MP #### [facility] [address] [place] [address] Dr. Evangelist Chicas LYMPH # 0.4 103/ul Critically low 1.2-3.8 [facility] Comment on above: Performed By: #### B MP #### [facility] [address] [place] [address] Dr. Evangelist Chicas Lymphocytes/100 WBC (Bld) 4.7 % Critically low 20.5-60.0 [facility] Comment on above: Performed By: #### B MP #### [facility] [address] [address] [address] Evangelist Chicas MANUAL DIFF REQ NO Normal [facility] Comment on above: Performed By: #### B MP #### [facility] [address] [address] [address] Evangelist Chicas MCH (RBC) [Entitic mass] 29.1 pg Normal 26.7-34.0 [facility] Comment on above: Performed By: #### B MP #### [facility] [address] [address] [address] Evangelist Chicas MCHC (RBC) [Mass/Vol] 31.4 g/dL Normal 29.9-35.2 [facility] Comment on above: Performed By: #### B MP #### [facility] [address] [place] [address] Dr. Evangelist Chicas MCV (RBC) [Entitic vol] 92.8 fL Normal 81.0-99.0 [facility] Comment on above: Performed By: #### B MP #### [facility] [address] [place] [address] Dr. Evangelist Chicas MONO # 0.1 103/ul Critically low 0.3-0.8 [facility] Comment on above: Performed By: #### B MP #### [facility] [address] [place] [address] Dr. Evangelist Chicas Monocytes/100 WBC (Bld) 1.8 % Normal 1.7-12.0 [facility] Comment on above: Performed By: #### B MP #### [facility] [address] [place] [address] Dr. Evangelist Chicas NEUT # 6.8 103/ul Critically high 1.4-6.5 [facility] Comment on above: Performed By: #### B MP #### [facility] [address] [place] [address] Dr. Evangelist Chicas Neutrophils/100 WBC (Bld) 92.9 % Critically high 43.0-75.0 [facility] Comment on above: Performed By: #### B MP #### [facility] [address] [address] [address] Evangelist Chicas Platelet mean volume (Bld) [Entitic vol] 11.3 fL Normal 9.5-13.5 [facility] Comment on above: Performed By: #### B MP #### [facility] [address] [place] [address] Dr. Evangelist Chicas PLT 109 103/ul Critically low 150-450 [facility] Comment on above: Performed By: #### B MP #### [facility] [address] [address] [address] Evangelist Chicas RBC 4.46 106/ul Normal 4.20-5.40 [facility] Comment on above: Performed By: #### B MP #### [facility] [address] [place] [address] Dr. Evangelist Chicas WBC 7.4 103/ul Normal 4.0-11.0 [facility] Comment on above: Performed By: #### B MP #### [facility] [address] [place] [address] Dr. Evangelist Chicas PROF CHEM 8 (BAS METB)on Anion gap [Moles/Vol] 11.8 mmol/L Normal [facility] Comment on above: Performed By: #### B MP #### [facility] [address] [place] [address] Dr. Evangelist Chicas Calcium [Mass/Vol] 9.3 mg/dL Normal 8.5-10.1 [facility] Comment on above: Performed By: #### B MP #### [facility] [address] [place] [address] Dr. Evangelist Chicas Chloride [Moles/Vol] 99 mmol/L Normal 98-107 [facility] Comment on above: Performed By: #### B MP #### [facility] [address] [place] [address] Dr. Evangelist Chicas CO2 [Moles/Vol] 31.6 mmol/L Normal 21.0-32.0 [facility] Comment on above: Performed By: #### B MP #### [facility] [address] [place] [address] Dr. Evangelist Chicas Creatinine [Mass/Vol] 0.75 mg/dL Normal 0.55-1.02 [facility] Comment on above: Performed By: #### B MP #### [facility] [address] [place] [address] Dr. Evangelist Chicas EGFR-AF PARAGUAYAN >60 Normal >=60 [facility] Comment on above: Performed By: #### B MP #### [facility] [address] [place] [address] Dr. Evangelist Chicas EGFR-NON AF PARAGUAYAN >60 Normal >=60 [facility] Comment on above: Performed By: #### B MP #### [facility] [address] [place] [address] Dr. Evangelist Chicas Glucose [Mass/Vol] 162 mg/dL Critically high 74-106 [facility] Comment on above: Performed By: #### B MP #### [facility] [address] [place] [address] Dr. Evangelist Chicas Potassium [Moles/Vol] 4.4 mmol/L Normal 3.5-5.1 [facility] Comment on above: Performed By: #### B MP #### [facility] [address] [place] [address] Dr. Evangelist Chicas Sodium [Moles/Vol] 138 mmol/L Normal 136-145 [facility] Comment on above: Performed By: #### B MP #### [facility] [address] [place] [address] Dr. Evangelist Chicas Urea nitrogen [Mass/Vol] 32.0 mg/dL Critically high 7.0-18.0 [facility] Comment on above: Performed By: #### B MP #### [facility] [address] [place] [address] Dr. Evangelist Chicas Urea nitrogen/Creatinin e [Mass ratio] 42.7 mg/mg Normal [facility] Comment on above: Performed By: #### B MP #### [facility] [address] [place] [address] Dr. Evangelist Chicas CBC AUTO DIFFon 11-13-2022 BASO # 0.0 103/ul Normal 0.0-0.1 [facility] Comment on above: Performed By: #### C BC #### [facility] [address] [place] [address] Dr. Evangelist Chicas Basophils/100 WBC (Bld) 0.1 % Critically low 0.2-2.0 [facility] Comment on above: Performed By: #### C BC #### [facility] [address] [place] [address] Dr. Evangelist Chicas EO # 0.0 103/ul Normal 0.0-0.7 [facility] Comment on above: Performed By: #### C BC #### [facility] [address] [place] [address] Dr. Evangelist Chicas Eosinophils/100 WBC (Bld) 0.0 % Critically low 0.9-7.0 [facility] Comment on above: Performed By: #### C BC #### [facility] [address] [place] [address] Dr. Evangelist Chicas Erythrocyte distribution width (RBC) [Ratio] 12.9 % Normal 11.0-15.0 [facility] Comment on above: Performed By: #### C BC #### [facility] [address] [place] [address] Dr. Evangelist Chicas Hematocrit (Bld) [Volume fraction] 39.0 % Normal 36.0-48.0 [facility] Comment on above: Performed By: #### C BC #### [facility] [address] [place] [address] Dr. Evangelist Chicas Hemoglobin (Bld) [Mass/Vol] 12.3 g/dL Normal 12.0-16.0 [facility] Comment on above: Performed By: #### C BC #### [facility] [address] [place] [address] Dr. Evangelist Chicas IG # 0.04 10e3/ul Critically high 0.00-0.03 [facility] [place] [facility] Comment on above: Performed By: #### C BC #### [facility] [address] [place] [address] Dr. Evangelist Chicas IG % 0.4 % Normal 0.0-0.5 [facility] Comment on above: Performed By: #### C BC #### [facility] [address] [place] [address] Dr. Evangelist Chicas LYMPH # 0.5 103/ul Critically low 1.2-3.8 [facility] Comment on above: Performed By: #### C BC #### [facility] [address] [place] [address] Dr. Evangelist Chicas Lymphocytes/100 WBC (Bld) 4.5 % Critically low 20.5-60.0 [facility] Comment on above: Performed By: #### C BC #### [facility] [address] [place] [address] Dr. Evangelist Chicas MANUAL DIFF REQ NO Normal [facility] Comment on above: Performed By: #### C BC #### [facility] [address] [place] [address] Dr. Evangelist Chicas MCH (RBC) [Entitic mass] 29.7 pg Normal 26.7-34.0 [facility] Comment on above: Performed By: #### C BC #### [facility] [address] [place] [address] Dr. Evangelist Chicas MCHC (RBC) [Mass/Vol] 31.5 g/dL Normal 29.9-35.2 [facility] Comment on above: Performed By: #### C BC #### [facility] [address] [place] [address] Dr. Evangelist Chicas MCV (RBC) [Entitic vol] 94.2 fL Normal 81.0-99.0 [facility] Comment on above: Performed By: #### C BC #### [facility] [address] [place] [address] Dr. Evangelist Chicas MONO # 0.2 103/ul Critically low 0.3-0.8 [facility] Comment on above: Performed By: #### C BC #### [facility] [address] [place] [address] Dr. Evangelist Chicas Monocytes/100 WBC (Bld) 1.5 % Critically low 1.7-12.0 [facility] Comment on above: Performed By: #### C BC #### [facility] [address] [place] [address] Dr. Evangelist Chicas NEUT # 10.5 103/ul Critically high 1.4-6.5 [facility] Comment on above: Performed By: #### C BC #### [facility] [address] [place] [address] Dr. Evangelist Chicas Neutrophils/100 WBC (Bld) 93.5 % Critically high 43.0-75.0 [facility] Comment on above: Performed By: #### C BC #### [facility] [address] [place] [address] Dr. Evangelist Chicas Platelet mean volume (Bld) [Entitic vol] 10.4 fL Normal 9.5-13.5 [facility] Comment on above: Performed By: #### C BC #### [facility] [address] [place] [address] Dr. Evangelist Chicas PLT 169 103/ul Normal 150-450 [facility] Comment on above: Performed By: #### C BC #### [facility] [address] [place] [address] Dr. Evangelist Chicas RBC 4.14 106/ul Critically low 4.20-5.40 [facility] Comment on above: Performed By: #### C BC #### [facility] [address] [place] [address] Dr. Evangelits Chicas WBC 11.2 103/ul Critically high 4.0-11.0 [facility] Comment on above: Performed By: #### C BC #### [facility] [address] [place] [address] Dr. Evangelist Chicas CULTURE SPUTUMon 11-13-2022 CULTURE SPUTUM Culture Observations : NORMAL RESPIRATORY SHAINA. Normal [facility] Comment on above: Performed By: #### B MP #### [facility] [address] [place] [address] Dr. Evangelist Chicas PROF CHEM 8 (BAS METB)on Anion gap [Moles/Vol] 9.2 mmol/L Normal [facility] Comment on above: Performed By: #### D DIM #### [facility] [address] [address] [address] Evangelist Chicas Calcium [Mass/Vol] 9.1 mg/dL Normal 8.5-10.1 [facility] Comment on above: Performed By: #### D DIM #### [facility] [address] [address] [address] Evangelist Chicas Chloride [Moles/Vol] 100 mmol/L Normal 98-107 [facility] Comment on above: Performed By: #### D DIM #### [facility] [address] [address] [address] Evangelist Chicas CO2 [Moles/Vol] 33.8 mmol/L Critically high 21.0-32.0 [facility] Comment on above: Performed By: #### D DIM #### [facility] [address] [place] [address] Dr. Evangelist Chicas Creatinine [Mass/Vol] 0.85 mg/dL Normal 0.55-1.02 [facility] Comment on above: Performed By: #### D DIM #### [facility] [address] [place] [address] Dr. Evangelist Chicas EGFR-AF PARAGUAYAN >60 Normal >=60 [facility] Comment on above: Performed By: #### D DIM #### [facility] [address] [address] [address] Evangelist Chicas EGFR-NON AF PARAGUAYAN >60 Normal >=60 [facility] Comment on above: Performed By: #### D DIM #### [facility] [address] [address] [address] Evangelist Chicas Glucose [Mass/Vol] 151 mg/dL Critically high 74-106 [facility] Comment on above: Performed By: #### D DIM #### [facility] [address] [place] [address] Dr. Evangelist Chicas Potassium [Moles/Vol] 4.0 mmol/L Normal 3.5-5.1 [facility] Comment on above: Performed By: #### D DIM #### [facility] [address] [place] [address] Dr. Evangelist Chicas Sodium [Moles/Vol] 139 mmol/L Normal 136-145 [facility] Comment on above: Performed By: #### D DIM #### [facility] [address] [place] [address] Dr. Evnagelist Chicas Urea nitrogen [Mass/Vol] 29.0 mg/dL Critically high 7.0-18.0 [facility] Comment on above: Performed By: #### D DIM #### [facility] [address] [place] [address] Dr. Evangelist Chicas Urea nitrogen/Creatinin e [Mass ratio] 34.1 mg/mg Normal [facility] Comment on above: Performed By: #### D DIM #### [facility] [address] [place] [address] Dr. Evangelist Chicas CBC AUTO DIFFon 11-12-2022 BASO # 0.0 103/ul Normal 0.0-0.1 [facility] Comment on above: Performed By: #### C BC #### [facility] [address] [place] [address] Dr. Evangelist Chicas Basophils/100 WBC (Bld) 0.1 % Critically low 0.2-2.0 [facility] Comment on above: Performed By: #### C BC #### [facility] [address] [place] [address] Dr. Evangelist Chicas EO # 0.0 103/ul Normal 0.0-0.7 [facility] Comment on above: Performed By: #### C BC #### [facility] [address] [place] [address] Dr. Evangelist Chicas Eosinophils/100 WBC (Bld) 0.0 % Critically low 0.9-7.0 [facility] Comment on above: Performed By: #### C BC #### [facility] [address] [place] [address] Dr. Evangelist Chicas Erythrocyte distribution width (RBC) [Ratio] 12.8 % Normal 11.0-15.0 [facility] Comment on above: Performed By: #### C BC #### [facility] [address] [address] [address] Evangelist Chicas Hematocrit (Bld) [Volume fraction] 41.5 % Normal 36.0-48.0 [facility] Comment on above: Performed By: #### C BC #### [facility] [address] [address] [address] Evangelist Chicas Hemoglobin (Bld) [Mass/Vol] 13.0 g/dL Normal 12.0-16.0 [facility] Comment on above: Performed By: #### C BC #### [facility] [address] [address] [address] Evangelist Chicas IG # 0.04 10e3/ul Critically high 0.00-0.03 [facility] [place] [facility] Comment on above: Performed By: #### C BC #### [facility] [address] [address] [address] Evangelist Chicas IG % 0.3 % Normal 0.0-0.5 [facility] Comment on above: Performed By: #### C BC #### [facility] [address] [address] [address] Evangelist Chicas LYMPH # 0.5 103/ul Critically low 1.2-3.8 [facility] Comment on above: Performed By: #### C BC #### [facility] [address] [address] [address] Evangelist Chicas Lymphocytes/100 WBC (Bld) 3.7 % Critically low 20.5-60.0 [facility] Comment on above: Performed By: #### C BC #### [facility] [address] [address] [address] Evangelist Chicas MANUAL DIFF REQ NO Normal [facility] Comment on above: Performed By: #### C BC #### [facility] [address] [address] [address] Evangelist Chicas MCH (RBC) [Entitic mass] 29.5 pg Normal 26.7-34.0 [facility] Comment on above: Performed By: #### C BC #### [facility] [address] [address] [address] Evangelist Chicas MCHC (RBC) [Mass/Vol] 31.3 g/dL Normal 29.9-35.2 [facility] Comment on above: Performed By: #### C BC #### [facility] [address] [address] [address] Evangelist Chicas MCV (RBC) [Entitic vol] 94.3 fL Normal 81.0-99.0 [facility] Comment on above: Performed By: #### C BC #### [facility] [address] [address] [address] Evangelist Chicas MONO # 0.2 103/ul Critically low 0.3-0.8 [facility] Comment on above: Performed By: #### C BC #### [facility] [address] [place] [address] Dr. Evangelist Chicas Monocytes/100 WBC (Bld) 1.3 % Critically low 1.7-12.0 [facility] Comment on above: Performed By: #### C BC #### [facility] [address] [place] [address] Dr. Evangelist Chicas NEUT # 12.4 103/ul Critically high 1.4-6.5 [facility] Comment on above: Performed By: #### C BC #### [facility] [address] [place] [address] Dr. Evangelist Chicas Neutrophils/100 WBC (Bld) 94.6 % Critically high 43.0-75.0 [facility] Comment on above: Performed By: #### C BC #### [facility] [address] [place] [address] Dr. Evangelist Chicas Platelet mean volume (Bld) [Entitic vol] 9.9 fL Normal 9.5-13.5 [facility] Comment on above: Performed By: #### C BC #### [facility] [address] [address] [address] Evangelist Chicas PLT 189 103/ul Normal 150-450 [facility] Comment on above: Performed By: #### C BC #### [facility] [address] [place], [place] [address] Dr. Evangelist Chicas RBC 4.40 106/ul Normal 4.20-5.40 [facility] Comment on above: Performed By: #### C BC #### [facility] [address] [place], [place] [address] Dr. Evangelist Chicas WBC 13.1 103/ul Critically high 4.0-11.0 [facility] Comment on above: Performed By: #### C BC #### [facility] [address] [place], [place] [address] Dr. Evangelist Chicas ECHOCARDIO M/2D COMPLETEon 0 11-12-2022 ECHOCARDIO M/2D COMPLETE Patient: LAWRENCE HARRISON Exam Date: 11/12/2022 : 1965 Gender:F Ordering : DR MANE LEE . Admission #: [id number] Family : DR VAMSHI MORGAN . Order #: [id number] CLICK HERE TO VIEW EXAM ECHOCARDIOGRAM REPORT [...] M.D. on 11/12/2022 at 13:56 Normal [facility] PROF CHEM 8 (BAS METB)on Anion gap [Moles/Vol] 10.2 mmol/L Normal [facility] Comment on above: Performed By: #### B MP #### [facility] [address] [address] [address] Evangelist Chicas Calcium [Mass/Vol] 9.2 mg/dL Normal 8.5-10.1 [facility] Comment on above: Performed By: #### B MP #### [facility] [address] [address] [address] Evangelist Chicas Chloride [Moles/Vol] 99 mmol/L Normal 98-107 [facility] Comment on above: Performed By: #### B MP #### [facility] [address] [address] [address] Evangelist Chicas CO2 [Moles/Vol] 31.5 mmol/L Normal 21.0-32.0 [facility] Comment on above: Performed By: #### B MP #### [facility] [address] [place] [address] Dr. Evangelist Chicas Creatinine [Mass/Vol] 0.87 mg/dL Normal 0.55-1.02 [facility] Comment on above: Performed By: #### B MP #### [facility] [address] [address] [address] Evangelist Chicas EGFR-AF PARAGUAYAN >60 Normal >=60 [facility] Comment on above: Performed By: #### B MP #### [facility] [address] [address] [address] Evangelist Chicas EGFR-NON AF PARAGUAYAN >60 Normal >=60 [facility] Comment on above: Performed By: #### B MP #### [facility] [address] [place] [address] Dr. Evangelist Chicas Glucose [Mass/Vol] 168 mg/dL Critically high 74-106 [facility] Comment on above: Performed By: #### B MP #### [facility] [address] [address] [address] Evangelist Chicas Potassium [Moles/Vol] 3.7 mmol/L Normal 3.5-5.1 [facility] Comment on above: Performed By: #### B MP #### [facility] [address] [address] [address] Evangelist Chicas Sodium [Moles/Vol] 137 mmol/L Normal 136-145 [facility] Comment on above: Performed By: #### B MP #### [facility] [address] [place] [address] Dr. Evangelist Chicas Urea nitrogen [Mass/Vol] 28.0 mg/dL Critically high 7.0-18.0 [facility] Comment on above: Performed By: #### B MP #### [facility] [address] [place] [address] Dr. Evangelist Chicas Urea nitrogen/Creatinin e [Mass ratio] 32.2 mg/mg Normal [facility] Comment on above: Performed By: #### B MP #### [facility] [address] [place] [address] Dr. Evangelist Chicas CBC AUTO DIFFon 11-11-2022 BASO # 0.0 103/ul Normal 0.0-0.1 [facility] Comment on above: Performed By: #### C BC #### [facility] [address] [place] [address] Dr. Evangelist Chicas Basophils/100 WBC (Bld) 0.2 % Normal 0.2-2.0 [facility] Comment on above: Performed By: #### C BC #### [facility] [address] [place] [address] Dr. Evangelist Chicas EO # 0.0 103/ul Normal 0.0-0.7 [facility] Comment on above: Performed By: #### C BC #### [facility] [address] [place] [address] Dr. Evangelist Chicas Eosinophils/100 WBC (Bld) 0.0 % Critically low 0.9-7.0 [facility] Comment on above: Performed By: #### C BC #### [facility] [address] [place] [address] Dr. Evangelist Chicas Erythrocyte distribution width (RBC) [Ratio] 12.7 % Normal 11.0-15.0 [facility] Comment on above: Performed By: #### C BC #### [facility] [address] [place] [address] Dr. Evangelist Chicas Hematocrit (Bld) [Volume fraction] 41.7 % Normal 36.0-48.0 [facility] Comment on above: Performed By: #### C BC #### [facility] [address] [place] [address] Dr. Evangelist Chicas Hemoglobin (Bld) [Mass/Vol] 13.0 g/dL Normal 12.0-16.0 [facility] Comment on above: Performed By: #### C BC #### [facility] [address] [place] [address] Dr. Evangelist Chicas IG # 0.03 10e3/ul Normal 0.00-0.03 [facility] Comment on above: Performed By: #### C BC #### [facility] [address] [place] [address] Dr. Evangelist Chicas IG % 0.5 % Normal 0.0-0.5 [facility] Comment on above: Performed By: #### C BC #### [facility] [address] [place] [address] Dr. Evangelist Chicas LYMPH # 0.4 103/ul Critically low 1.2-3.8 [facility] Comment on above: Performed By: #### C BC #### [facility] [address] [place] [address] Dr. Evangelist Chicas Lymphocytes/100 WBC (Bld) 5.8 % Critically low 20.5-60.0 [facility] Comment on above: Performed By: #### C BC #### [facility] [address] [place] [address] Dr. Evangelist Chicas MANUAL DIFF REQ NO Normal [facility] Comment on above: Performed By: #### C BC #### [facility] [address] [address] [address] Evangelist Chicas MCH (RBC) [Entitic mass] 29.3 pg Normal 26.7-34.0 [facility] Comment on above: Performed By: #### C BC #### [facility] [address] [place] [address] Dr. Evangelist Chicas MCHC (RBC) [Mass/Vol] 31.2 g/dL Normal 29.9-35.2 [facility] Comment on above: Performed By: #### C BC #### [facility] [address] [place] [address] Dr. Evangelist Chicas MCV (RBC) [Entitic vol] 93.9 fL Normal 81.0-99.0 [facility] Comment on above: Performed By: #### C BC #### [facility] [address] [place] [address] Dr. Evangelist Chicas MONO # 0.0 103/ul Critically low 0.3-0.8 [facility] Comment on above: Performed By: #### C BC #### [facility] [address] [place] [address] Dr. Evangelist Chicas Monocytes/100 WBC (Bld) 0.6 % Critically low 1.7-12.0 [facility] Comment on above: Performed By: #### C BC #### [facility] [address] [place] [address] Dr. Evangelist Chicas NEUT # 6.0 103/ul Normal 1.4-6.5 [facility] Comment on above: Performed By: #### C BC #### [facility] [address] [place] [address] Dr. Evangelist Chicas Neutrophils/100 WBC (Bld) 92.9 % Critically high 43.0-75.0 [facility] Comment on above: Performed By: #### C BC #### [facility] [address] [place] [address] Dr. Evangelist Chicas Platelet mean volume (Bld) [Entitic vol] 10.8 fL Normal 9.5-13.5 [facility] Comment on above: Performed By: #### C BC #### [facility] [address] [address] [address] Evangelist Chicas PLT 141 103/ul Critically low 150-450 [facility] Comment on above: Performed By: #### C BC #### [facility] [address] [address] [address] Evangelist Chicas RBC 4.44 106/ul Normal 4.20-5.40 [facility] Comment on above: Performed By: #### C BC #### [facility] [address] [address] [address] Evangelist Chicas WBC 6.4 103/ul Normal 4.0-11.0 [facility] Comment on above: Performed By: #### C BC #### [facility] [address] [place] [address] Dr. Evangelist Chicas PROF CHEM 8 (BAS METB)on Anion gap [Moles/Vol] 7.5 mmol/L Normal [facility] Comment on above: Performed By: #### B MP #### [facility] [address] [place] [address] Dr. Evangelist Chicas Calcium [Mass/Vol] 8.9 mg/dL Normal 8.5-10.1 [facility] Comment on above: Performed By: #### B MP #### [facility] [address] [place] [address] Dr. Evangelist Chicas Chloride [Moles/Vol] 100 mmol/L Normal 98-107 [facility] Comment on above: Performed By: #### B MP #### [facility] [address] [place] [address] Dr. Evangelist Chicas CO2 [Moles/Vol] 33.9 mmol/L Critically high 21.0-32.0 [facility] Comment on above: Performed By: #### B MP #### [facility] [address] [place] [address] Dr. Evangelist Chicas Creatinine [Mass/Vol] 0.65 mg/dL Normal 0.55-1.02 [facility] Comment on above: Performed By: #### B MP #### [facility] [address] [address] [address] Evangelist Chicas EGFR-AF PARAGUAYAN >60 Normal >=60 [facility] Comment on above: Performed By: #### B MP #### [facility] [address] [address] [address] Evangelist Chicas EGFR-NON AF PARAGUAYAN >60 Normal >=60 [facility] Comment on above: Performed By: #### B MP #### [facility] [address] [address] [address] Evangelist Chicas Glucose [Mass/Vol] 152 mg/dL Critically high 74-106 [facility] Comment on above: Performed By: #### B MP #### [facility] [address] [place] [address] Dr. Evangelist Chicas Potassium [Moles/Vol] 4.4 mmol/L Normal 3.5-5.1 [facility] Comment on above: Performed By: #### B MP #### [facility] [address] [place] [address] Dr. Evangelist Chicas Sodium [Moles/Vol] 137 mmol/L Normal 136-145 [facility] Comment on above: Performed By: #### B MP #### [facility] [address] [place] [address] Dr. Evangelist Chicas Urea nitrogen [Mass/Vol] 16.0 mg/dL Normal 7.0-18.0 [facility] Comment on above: Performed By: #### B MP #### [facility] [address] [address] [address] Evangelist Chicas Urea nitrogen/Creatinin e [Mass ratio] 24.6 mg/mg Normal [facility] Comment on above: Performed By: #### B MP #### [facility] [address] [place] [address] Dr. Evangelist Chicas BNPon 11-10-2022 Natriuretic peptide B (Bld) [Mass/Vol] 330.0 pg/mL Normal <=900.0 [facility] Comment on above: Performed By: #### B MP #### [facility] [address] [place] [address] Dr. Evangelist Chicas CARDIAC LIS ADMITon 023 CK [Catalytic activity/Vol] 40 U/L Normal 26-192 [facility] Comment on above: Performed By: #### D DIM #### [facility] [address] [place] [address] Dr. Evangelist Chicas CK.MB [Mass/Vol] 1.06 ng/mL Normal <=3.60 [facility] Comment on above: Performed By: #### D DIM #### [facility] [address] [place] [address] Dr. Evangelist Chicas HSTROP 21.6 pg/mL Normal 4.0-51.3 [facility] Comment on above: Result Comment: CUT- OFF POINTS HAVE BEEN ESTABLISHED BASED ON THE FOURTH UNIVERSAL DEFINITIONS OF MYOCARDIAL INFARCTION. THE UPPER REFERENCE LIMIT (URL) OF TROPONIN, DEFINED THE 99TH PERCENTILE OF cTnI DISTRIBUTION IN A REFERENCE POPULATION, HAS BEEN CONFIRMED THE DECISION THRESHOLD FOR [place] DIAGNOSIS. Performed By: #### D DIM #### [facility] [address] [place] [address] Dr. Evangelist Chicas VANNA 41 ng/mL Normal 9-82 [facility] Comment on above: Performed By: #### D DIM #### [facility] [address] [place] [address] Dr. Evangelist Chicas CBC AUTO DIFFon 11-10-2022 BASO # 0.1 103/ul Normal 0.0-0.1 [facility] Comment on above: Performed By: #### B MP #### [facility] [address] [place] [address] Dr. Evangelist Chicas Basophils/100 WBC (Bld) 0.7 % Normal 0.2-2.0 [facility] Comment on above: Performed By: #### B MP #### [facility] [address] [place] [address] Dr. Evangelist Chicas EO # 0.1 103/ul Normal 0.0-0.7 [facility] Comment on above: Performed By: #### B MP #### [facility] [address] [place] [address] Dr. Evangelist Chicas Eosinophils/100 WBC (Bld) 1.1 % Normal 0.9-7.0 [facility] Comment on above: Performed By: #### B MP #### [facility] [address] [place] [address] Dr. Evangelist Chicas Erythrocyte distribution width (RBC) [Ratio] 12.8 % Normal 11.0-15.0 [facility] Comment on above: Performed By: #### B MP #### [facility] [address] [place] [address] Dr. Evangelist Chicas Hematocrit (Bld) [Volume fraction] 41.1 % Normal 36.0-48.0 [facility] Comment on above: Performed By: #### B MP #### [facility] [address] [place] [address] Dr. Evangelist Chicas Hemoglobin (Bld) [Mass/Vol] 13.2 g/dL Normal 12.0-16.0 [facility] Comment on above: Performed By: #### B MP #### [facility] [address] [place] [address] Dr. Evangelist Chicas IG # 0.02 10e3/ul Normal 0.00-0.03 [facility] Comment on above: Performed By: #### B MP #### [facility] [address] [place] [address] Dr. Evangelist Chicas IG % 0.3 % Normal 0.0-0.5 [facility] Comment on above: Performed By: #### B MP #### [facility] [address] [place] [address] Dr. Evangelist Chicas LYMPH # 0.7 103/ul Critically low 1.2-3.8 [facility] Comment on above: Performed By: #### B MP #### [facility] [address] [place] [address] Dr. Evangelist Chicas Lymphocytes/100 WBC (Bld) 9.5 % Critically low 20.5-60.0 [facility] Comment on above: Performed By: #### B MP #### [facility] [address] [place] [address] Dr. Evangelist Chicas MANUAL DIFF REQ NO Normal [facility] Comment on above: Performed By: #### B MP #### [facility] [address] [place] [address] Dr. Evangelist Chicas MCH (RBC) [Entitic mass] 29.6 pg Normal 26.7-34.0 [facility] Comment on above: Performed By: #### B MP #### [facility] [address] [place] [address] Dr. Evangelist Chicas MCHC (RBC) [Mass/Vol] 32.1 g/dL Normal 29.9-35.2 [facility] Comment on above: Performed By: #### B MP #### [facility] [address] [place] [address] Dr. Evangelist Chicas MCV (RBC) [Entitic vol] 92.2 fL Normal 81.0-99.0 [facility] Comment on above: Performed By: #### B MP #### [facility] [address] [place] [address] Dr. Evangelist Chicas MONO # 0.6 103/ul Normal 0.3-0.8 [facility] Comment on above: Performed By: #### B MP #### [facility] [address] [place] [address] Dr. Evangelist Chicas Monocytes/100 WBC (Bld) 8.1 % Normal 1.7-12.0 [facility] Comment on above: Performed By: #### B MP #### [facility] [address] [place] [address] Dr. Evangelist Chicas NEUT # 6.1 103/ul Normal 1.4-6.5 [facility] Comment on above: Performed By: #### B MP #### [facility] [address] [place] [address] Dr. Evangelist Chicas Neutrophils/100 WBC (Bld) 80.3 % Critically high 43.0-75.0 [facility] Comment on above: Performed By: #### B MP #### [facility] [address] [place] [address] Dr. Evangelist Chicas Platelet mean volume (Bld) [Entitic vol] 9.8 fL Normal 9.5-13.5 [facility] Comment on above: Performed By: #### B MP #### [facility] [address] [address] [address] Evangelist Chicas PLT 180 103/ul Normal 150-450 [facility] Comment on above: Performed By: #### B MP #### [facility] [address] [address] [address] Evangelist Chicas RBC 4.46 106/ul Normal 4.20-5.40 [facility] Comment on above: Performed By: #### B MP #### [facility] [address] [address] [address] Evangelist Chicas WBC 7.6 103/ul Normal 4.0-11.0 [facility] Comment on above: Performed By: #### B MP #### [facility] [address] [address] [address] Evangelist Chicas CTA CHEST WO W [...] DEL KLAUS Date: 2022-11-10 17:30 Normal [facility] Covid-19 PCR (CVDTB)on SARS-CoV-2 (COVID-19) RNA SHENG+probe Ql (Unsp spec) Not detected Normal NOT DETECTED [facility] Comment on above: Result Comment: [...] for this test is supported by the [employer] of Health and Human Service's declaration that [...] used). Performed By: #### B MP #### [facility] [address] [place] [address] Dr. Evangelist Chicas D-DIMERon 11-10-2022 D-DIMER 0.63 mg/L FEU Critically high <=0.59 [facility] Comment on above: Performed By: #### D DIM #### [facility] [address] [place], [place] [address] Dr. Evangelist Chicas D-DIMER COMMENTS SEE BELOW Normal [facility] Comment on above: Result Comment: [...] hospitalization. Performed By: #### D DIM #### [facility] [address] [place] [address] Dr. Evangelist HINOJOSA URINE PROFILEon 3 Bilirubin Ql (U) Negative Normal NEGATIVE [facility] Comment on above: Performed By: #### U MICRO, ERUR #### [facility] [address] [place] [address] Dr. Evangelist Chicas Clarity (U) CLEAR Normal CLEAR [facility] Comment on above: Performed By: #### U MICRO, ERUR #### [facility] [address] [place] [address] Dr. Evangelist Chicas Color (U) LT. YELLOW Normal YELLOW [facility] Comment on above: Performed By: #### U MICRO, ERUR #### [facility] [address] [place] [address] Dr. Evangelist Chicas ERUAHD A micrscopic examination will be performed if indicated. Normal [facility] Comment on above: Performed By: #### U MICRO, ERUR #### [facility] [address] [place] [address] Dr. Evangelist Chicas Glucose Ql (U) Negative Normal NEGATIVE [facility] Comment on above: Performed By: #### U MICRO, ERUR #### [facility] [address] [place] [address] Dr. Evangelist Chicas Hemoglobin Ql (U) TRACE-INTACT Abnormal NEGATIVE [facility] Comment on above: Performed By: #### U MICRO, ERUR #### [facility] [address] [place] [address] Dr. Evangelist Chicas Ketones Ql (U) Negative Normal NEGATIVE [facility] Comment on above: Performed By: #### U MICRO, ERUR #### [facility] [address] [place] [address] Dr. Evangelist Chicas LEUKOCYTES Negative Normal NEGATIVE [facility] Comment on above: Performed By: #### U MICRO, ERUR #### [facility] [address] [place] [address] Dr. Evangelist Chicas Nitrite Ql (U) Negative Normal NEGATIVE [facility] Comment on above: Performed By: #### U MICRO, ERUR #### [facility] [address] [place] [address] Dr. Evangelist Chicas pH (U) 6.0 [pH] Normal 5-9 [facility] Comment on above: Performed By: #### U MICRO, ERUR #### [facility] [address] [place] [address] Dr. Evangelist Chicas SPEC GRAVITY 1.010 Normal 1.005-<=1.025 [facility] Comment on above: Performed By: #### U MICRO, ERUR #### [facility] [address] [place] [address] Dr. Evangelist Chicas UA PROTEIN Negative Normal NEGATIVE/ TRACE [facility] Comment on above: Performed By: #### U MICRO, ERUR #### [facility] [address] [place] [address] Dr. Evangelist Chicas UR MICRO IND INDICATED Normal [facility] Comment on above: Performed By: #### U MICRO, ERUR #### [facility] [address] [place] [address] Dr. Evangelist Chicas Urobilinogen Qn (U) 0.2 {Amalia'U}/dL Normal 0.2 - 1.0 [facility] Comment on above: Performed By: #### U MICRO, ERUR #### [facility] [address] [place] [address] Dr. Evangelist Chicas INFLUENZA A AND B [facility] Normal [facility] Comment on above: Result Comment: Nega tive for Flu A protein angiten. Infection due to Flu A cannot be ruled out. Flu A angiten in the sample may be below the detection limit of the test. Performed By: #### D DIM #### [facility] [address] [place] [address] Dr. Evangelist Chicas INFLUBNEGH SEE BELOW Normal [facility] Comment on above: Result Comment: Nega tive for Flu B protein antigen. Infection due to Flu B cannot be ruled out. Flu B antigen in the sample may be below the detection limit of the test. Performed By: #### D DIM #### [facility] [address] [place] [address] Dr. Evangelist Chicas INFLUENZA A AG Negative Normal NEGATIVE SEE COMMENT [facility] Comment on above: Performed By: #### D DIM #### [facility] [address] [place] [address] Dr. Evangelist Chicas INFLUENZA B AG Negative Normal NEGATIVE SEE COMMENT [facility] Comment on above: Performed By: #### D DIM #### [facility] [address] [place] [address] Dr. Evangelist Chicas PROF 14(COMP METB)on 023 Albumin [Mass/Vol] 3.1 g/dL Critically low 3.4-5.0 Th e [facility] Comment on above: Performed By: #### B MP #### [facility] [address] [place] [address] Dr. Evangelist Chicas Albumin/Globulin [Mass ratio] 0.7 {ratio} Normal [facility] Comment on above: Performed By: #### B MP #### [facility] [address] [place] [address] Dr. Evangelist Chicas ALP [Catalytic activity/Vol] 108 U/L Normal 46-116 [facility] Comment on above: Performed By: #### B MP #### [facility] [address] [place] [address] Dr. Evangelist Chicas ALT [Catalytic activity/Vol] 20 U/L Normal 14-59 [facility] Comment on above: Performed By: #### B MP #### [facility] [address] [place] [address] Dr. Evangelist Chicas Anion gap [Moles/Vol] 6.0 mmol/L Normal [facility] Comment on above: Performed By: #### B MP #### [facility] [address] [place] [address] Dr. Evangelist Chicas AST [Catalytic activity/Vol] 16 U/L Normal 15-37 [facility] Comment on above: Performed By: #### B MP #### [facility] [address] [address] [address] Evangelist Chicas Bilirubin [Mass/Vol] 0.6 mg/dL Normal 0.2-1.0 [facility] Comment on above: Performed By: #### B MP #### [facility] [address] [address] [address] Evangelist Chicas Calcium [Mass/Vol] 9.1 mg/dL Normal 8.5-10.1 [facility] Comment on above: Performed By: #### B MP #### [facility] [address] [address] [address] Evangelist Chicas Chloride [Moles/Vol] 97 mmol/L Critically low 98-107 [facility] Comment on above: Performed By: #### B MP #### [facility] [address] [place] [address] Dr. Evangelist Chicas CO2 [Moles/Vol] 36.9 mmol/L Critically high 21.0-32.0 [facility] Comment on above: Performed By: #### B MP #### [facility] [address] [address] [address] Evangelist Chicas Creatinine [Mass/Vol] 0.71 mg/dL Normal 0.55-1.02 [facility] Comment on above: Performed By: #### B MP #### [facility] [address] [place] [address] Dr. Evangelist Chicas EGFR-AF PARAGUAYAN >60 Normal >=60 [facility] Comment on above: Performed By: #### B MP #### [facility] [address] [address] [address] Evangelist Chicas EGFR-NON AF PARAGUAYAN >60 Normal >=60 [facility] Comment on above: Performed By: #### B MP #### [facility] [address] [place] [address] Dr. Evangelist Chicas Globulin (S) [Mass/Vol] 4.4 g/dL Normal [facility] Comment on above: Performed By: #### B MP #### [facility] [address] [place] [address] Dr. Evangelist Chicas Glucose [Mass/Vol] 124 mg/dL Critically high 74-106 [facility] Comment on above: Performed By: #### B MP #### [facility] [address] [address] [address] Evangelist Chicas Potassium [Moles/Vol] 3.9 mmol/L Normal 3.5-5.1 [facility] Comment on above: Performed By: #### B MP #### [facility] [address] [address] [address] Evangelist Chicas Protein [Mass/Vol] 7.5 g/dL Normal 6.4-8.2 [facility] Comment on above: Performed By: #### B MP #### [facility] [address] [place] [address] Dr. Evangelist Chicas Sodium [Moles/Vol] 136 mmol/L Normal 136-145 [facility] Comment on above: Performed By: #### B MP #### [facility] [address] [place] [address] Dr. Evangelist Chicas Urea nitrogen [Mass/Vol] 17.0 mg/dL Normal 7.0-18.0 [facility] Comment on above: Performed By: #### B MP #### [facility] [address] [place] [address] Dr. Evangelist Chicas Urea nitrogen/Creatinin e [Mass ratio] 23.9 mg/mg Normal [facility] Comment on above: Performed By: #### B MP #### [facility] [address] [place] [address] Dr. Evangelist Chicas URINE MICROSCOPIC ONLYon BACTERIA NONE SEEN Normal NONE SEEN [facility] Comment on above: Performed By: #### U MICRO, ERUR #### [facility] [address] [place] [address] Dr. Evangelist Chicas Bacteria identified Cx Nom (U) NOT INDICATED Normal [facility] Comment on above: Performed By: #### U MICRO, ERUR #### [facility] [address] [place] [address] Dr. Evangelist Chicas CAST NONE SEEN Normal NONE SEEN [facility] Comment on above: Performed By: #### U MICRO, ERUR #### [facility] [address] [address] [address] Evangelist Chicas Crystals LM Nom (Urine sed) NONE SEEN Normal NONE SEEN [facility] Comment on above: Performed By: #### U MICRO, ERUR #### [facility] [address] [place] [address] Dr. Evangelist Chicas Epithelial cells LM Ql (Urine sed) FEW Abnormal NONE SEEN /RARE [facility] Comment on above: Performed By: #### U MICRO, ERUR #### [facility] [address] [place] [address] Dr. Evangelist Chicas MUCOUS NONE SEEN Normal NONE SEEN [facility] Comment on above: Performed By: #### U MICRO, ERUR #### [facility] [address] [place] [address] Dr. Evangelist Chicas RBC 0-2 Normal 0-2 [facility] Comment on above: Performed By: #### U MICRO, ERUR #### [facility] [address] [place] [address] Dr. Evangelist Chicas WBC NONE SEEN Normal NONE SEEN [facility] Comment on above: Performed By: #### U MICRO, ERUR #### [facility] [address] [place] [address] Dr. Evangelist Chicas XR CHEST 1 Von [...] JH JAIN Date: 2022-11-10 15:24 Normal [facility] Vital Signs Date Time Vital Sign Value Performing Clinician Faci lity 12-23-2023 13:24-0500 Body height 160 cm Mane Lee MD Work Phone: [facility] 12-23-2023 13:24-0500 Body mass index (BMI) [Ratio] 49.25 kg/m2 Mane Lee MD Work Phone: [facility] 12-23-2023 13:24-0500 Body temperature 97.3 [degF] Mane Lee MD Work Phone: [facility] 12-23-2023 13:24-0500 Body weight 126.1 kg Mane Lee MD Work Phone: [facility] 12-23-2023 13:24-0500 Diastolic blood pressure 80 mm[Hg] Mane Lee MD Work Phone: [facility] 12-23-2023 13:24-0500 Heart rate 96 /min Mane Lee MD Work Phone: [facility] 12-23-2023 13:24-0500 SaO2% (BldA) [Mass fraction] 96 % Mane Lee MD Work Phone: [facility] 12-23-2023 13:24-0500 Systolic blood pressure 140 mm[Hg] Mane Lee MD Work Phone: [facility] Encounters Encounter Date Encounter Type Care Provider Facility Start: 01-26-2024 End: 01-27-2024 ambulatory Corine Frye MD Facility:[facility] Start: 01-22-2024 End: 01-22-2024 ambulatory MANE LEE Not Available Start: 12-29-2023 End: 12-30-2023 ambulatory Corine Frye MD Facility:[facility] Start: 12-23-2023 End: 12-23-2023 ambulatory MANE LEE Not Available Start: 12-23-2023 Bamboo flowsheet Mane Lee MD Work Phone: [facility] Start: 12-23-2023 Amy flowsheet Mane Lee MD Work Phone: [facility] Start: 12-23-2023 End: 12-23-2023 Office outpatient visit 25 minutes Mane Lee MD Work Phone: [facility] Comment on above: Essential hypertensi on, benign (CMS/HCC) (Primary Dx); Degenerative lumbar spinal stenosis; Lumbar disc herniation with radiculopathy; Leg edema; Chronic obstructive pulmonary disease, unspecified COPD type (CMS/HCC) Start: 12-10-2023 End: 12-10-2023 ambulatory Lakisha Shipman Facility:[facility] Start: 12-10-2023 End: 12-10-2023 ambulatory MD Mane Lee Work Phone: [facility] Work Phone: Start: 12-10-2023 End: 12-10-2023 Patient encounter procedure MD Mane Lee Work Phone: [facility] Work Phone: Start: 11-26-2023 End: 11-26-2023 ambulatory MANE LEE Not Available Start: 10-31-2023 End: 10-31-2023 ambulatory MANE LEE Not Available Start: 08-25-2023 End: 08-26-2023 ambulatory Corine Frye MD Facility:[facility] Start: 01-29-2023 End: 01-30-[address] MANE [...] for malign ant neoplasm of colon [facility] Start: 02-24-2024 End: 02-24-2024 Patient encounter procedure 02/24/2024 9:00 AM EDT [facility] [address] [place] [address] Mane Lee MD [address] [place] [phone] [facility] Start: 01-30-2024 Screening for malign ant neoplasm of breast Mammogram [facility] Start: 12-23-2023 End: 12-23-2023 Patient encounter procedure 12/23/2023 1:15 PM EST Office Visit [facility] [address] [place] [phone] Mane Lee MD [address] [place] [phone] Arrived [facility] Comment on above: Arrived Start: 1993 Screening for malign ant neoplasm of cervix [facility] Start: 1984 Screening for malign ant neoplasm of cervix Pap Smear [facility] Start: 1965 Screening for malign ant neoplasm of colon [facility] Payers Date Payer Category Payer Self-pay 2023 Unknown [id number] 2022 Unknown [id number] 1965 Unknown [id number] 2.16.84 [id number] 1965 Unknown [id number] 2.16.84 [id number] 1965 Unknown [id number] 2.16.84 [id number] 1963 Unknown [id number] 2.16.84 [id number] 1965 Unknown [id number] 2.16.84 [id number] 1963 Unknown [id number] 2.16.840 .[id number] 1965 Unknown [id number] 2.16. [id number] 1965 Unknown [id number] 2.16. [id number] 1965 Unknown [id number] 2.16. [id number] 1959 Unknown [id number] Unknown [facility] [id number] Unknown [id number] 2.16.8 [id number] Social History Date Type Detail Facility Tobacco smoking stat [facility] Unknown if ever smoked [facility] Work Phone: Start: 1965 Sex Assigned At Female F [facility] Start: 10-31-2023 Tobacco smoking stat [facility] Smokes tobacco daily [facility] History [...] Note Facility [facility] Evaluation note Note Date [...] content) DATE CREATED AUTHOR 02/02/2023 [facility] DATE CREATED AUTHOR AUTHOR'S ORGANIZ ATION 01/23/2024 [facility] EPIC DATE CREATED AUTHOR AUTHOR'S ORGANIZ ATION 02/04/2024 [facility] DATE CREATED AUTHOR AUTHOR'S ORGANIZ ATION 03/12/2024 [facility] Care Teams (unrecognized sec tion and content) Team Status: Active Member Role Status Dates Mane Lee MD Primary Care Provider Active Team Status: Inactive Member Role Status Dates Mane Lee MD Primary Care Provider Active S tart: December 10, 2023 End: December 10, 2023 BERNICE Blanc Attending Provider Active Start: December 10, 2023 End: December 10, 2023 [facility] [employer] Relationship Specialty Start Date End Date Mane Lee MD [address] [place] [phone] PCP - General Family Medicine 12/23/23 [facility] [employer] Relationship Specialty Start Date End Date Mane Lee MD [address] [place] [address] PCP - General Family Medicine 12/23/23 [...] ON THE PRIMARY CLINICAL RECORDS. [facility] [facility]. provides no warranty or guarantee of the accuracy or completeness of information in this document.
[2024-03-22 07:49] VITALS: BP 130/81; PULSE 80; TEMP 36.5; O2SAT 98
[2024-03-22 08:32] VITALS: BP 211/88; PULSE 79; O2SAT 95
[2024-03-22] MEDS: BUPIVACAINE HCL 0.25% PF 25 MG/10 ML VIAL INJ (08:34)
[2024-03-22] MEDS: TRIAMCINOLONE ACETONIDE 40 MG/ML VIAL INJ (08:34)
[2024-03-22 08:39] VITALS: BP 221/111; PULSE 85; O2SAT 97
[2024-03-22] MEDS: LIDOCAINE HCL 2% 400 MG/20 ML MDV 15 ML INJ (08:41)
--- NOTE | 2024-03-22 08:48 | P.ON_ITS ---
Date of procedure: 03/22/24 Pre-op diagnosis: Lumbar spondylosis Post-op diagnosis: same as pre-op Procedure: Procedure: Bilateral L3-4, L4-5 radiofrequency ablation Medications: Bupivacaine 0.25% 6cc, lidocaine 2% 5cc, kenalog 80mg The patient was seen and examined in the preoperative holding area.? The site was marked.? Written informed consent was obtained and placed on the chart.? The patient was brought to the medical procedure unit and placed in the prone position.? A timeout was completed verifying correct patient, procedure, positioning, and special requirements.? The skin overlying the target points, the designated medial branch, were prepped and draped in the usual sterile fashion.? The target point was achieved with a 20-gauge 15 cm with a 10 mm curved active tip radiofrequency cannula under direct fluoroscopic visualization.? The needle was inserted at level L3 on the right side. Needle tip position was confirmed with lateral fluoroscopic position.? Motor stimulation was carried out at 2 Hz up to 5 volts with the absence of extremity activity.? This was repeated at level L4, 5 on right side.?? Sensory stimulation was carried out.? Concordant pain was realized at the above- mentioned sites.? Then radiofrequency lesioning was carried out times 90 seconds at 80 degrees times 2 lesions at each level.? The radiofrequency probe was removed prior to cannula removal.? The above-mentioned injectate was placed in 1 mL increments.? The needle was removed. The same procedure, with the same steps, was then completed on the left side at the same levels. Insertion sites were covered.? The patient was taken to the postoperative recovery area and monitored for an appropriate length of time before being found suitable for discharge in the company of a responsible adult. Anesthesia: Local Surgeon: Corine Frye Pathology: none sent Condition: stable Disposition: no change
== END 2024-03-22 08:54 | disposition home or self-care (01) ==
PROVIDERS: PCP Family Medicine; Visit Provider Anesthesiology
DX: M47.816 Spondylosis without myelopathy or radiculopathy, lumbar region (principal)
CPT/HCPCS: 64635; 64636

== ENCOUNTER 2024-04-22 09:54 | Outpatient (OUT) | payer BC, SELFPAY ==
--- NOTE | 2024-04-22 10:07 | P.CN_ITS ---
Consult Note: HPI Data of Consult Patient: known to practice within the last 3 years Requesting Physician: Rachael Robles NP Primary Care Provider: Mane Kearney MD Consult Narrative Reason for consult: f/u Narrative: Jazz Juares a pleasant 58 year old female presents for evaluation and management of chronic low back pain with NC. Patient has failed conservative measures and greater than 6 weeks of PT. Patient was evaluated by Dr Whitman office who would like her to try injection therapy before consideration of surgical intervention. Patient finding benefit from zonegran 100mg HS, celebrex 200mg BID, flexeril 10mg TID, and duloxetine 60mg daily without side effects. Patient recently underwent Bilateral L3-4, L4-5 facet RFA with >90% improvement in axial low back pain and functional ability per patient, shes now able to tolerate standing walking and activity better. cc:: CC: Rachael Robles NP Review of Systems ROS Status of ROS 10 or more systems reviewed and unremark able except as noted in history and below Musculoskeletal Reports: back pain PFSH PFSH Medical History (Updated 12/25/23 @ 09:10 by Shruti Chowdary) Low back pain ?M54.50 - Low back pain, unspecified (ICD-10) Smoker ?F17.200 - Nicotine dependence, unspecified, uncomplicated (ICD-10) COPD (chronic obstructive pulmonary disease) ?J44.9 - Chronic obstructive pulmonary disease, unspecified (ICD-10) Hypertension ?I10 - Essential (primary) hypertension (ICD-10) Surgical History S/P carpal tunnel release ?Z98.890 - Other specified postprocedural states (ICD-10) S/P endometrial ablation ?Z98.890 - Other specified postprocedural states (ICD-10) Meds Home Medications and Allergies Home Medications ?Medication ?Instructions ?Recorded ?Confirmed ?Type amlodipine 5 mg tablet 5 mg PO DAILY 08/28/23 03/22/24 History celecoxib 200 mg capsule 200 mg PO Q12H PRN pain 08/28/23 03/22/24 History cholecalciferol (vitamin D3) 50 50 mcg PO DAILY 08/28/23 03/22/24 History mcg (2,000 unit) tablet losartan 100 1 tab PO DAILY 08/28/23 03/22/24 History mg-hydrochlorothiazide 25 mg tablet umeclidinium 62.5 mcg-vilanterol 1 inh inhalation Q24H 08/28/23 03/22/24 History 25 mcg/actuation powdr for inhalation (Anoro Ellipta) duloxetine 60 mg capsule,delayed 60 mg PO DAILY #30 caps 10/09/23 03/22/24 Rx release albuterol sulfate 90 mcg/actuation inhalation 12/25/23 History aerosol inhaler zonisamide 50 mg capsule 100 mg PO .HS 12/25/23 03/22/24 History cyclobenzaprine 10 mg tablet 10 mg PO TID 01/14/24 03/22/24 History Allergies Allergy/AdvReac Type Severity Reaction Status Date / Time ciprofloxacin [From Cipro] Allergy Verified 03/22/24 07:46 Exam Constitutional Documenting provider has reviewed patient's vital signs: yes Common normals: no apparent distress, oriented x3, healthy appearing, alert and well nourished General appearance: cooperative HENMT Common normals: normocephalic, hearing grossly normal bilaterally and moist oral mucous membranes Head and scalp: normocephalic Eye Common normals: PERRL Pupil: PERRL Neck & C-Spine Common normals: full ROM General: normal visual inspection Chest Common normals: inspection of chest normal Respiratory Common normals: normal respiratory effort, no retractions and no use of accessory muscles Back & Pelvis Lumbar spine/lower back: ROM limited, paraspinal muscle tenderness, paraspinal muscle spasm and straight leg raise negative bilaterally Other: lumbar facet loading negative no radiculopathy on exam sensation intact BLE strength 5/5 in BLE Extremity Common normals: normal to inspection and full ROM Neuro Common normals: oriented x3, CN's II-XII intact bilaterally, moves all extremities, no focal motor deficits, no sensory deficits noted, deep tendon reflexes 2+ bilaterally and gait normal Sensorium/orientation: alert Gait (neuro): antalgic Motor exam: strength 5/5 throughout and no movement abnormalities noted Psych Common normals: mental status grossly normal, thought process normal, cooperative, affect normal, speech normal and activity/motor behavior normal Speech: normal speech Thought process: normal thought process Results Additional Findings Additional findings: If on a controlled substance or opioids, I have checked an [place] report on this patient and there are no aberrancies noted in the prescribing history.??If on a controlled substance or opioid a drug screen was completed and reviewed within the last year, and if there has not been a drug screen completed we ordered one today to monitor higher risk, state monitored pain medication use. As part of providing excellent, safe, comprehensive care, the following was completed at our patient's visit: 1. A medication reconciliation and review to ensure accurate knowledge of curre nt/active medications, including asking our patients to inform us about any [id number] medications or herbal remedies/nutritional supplements/alternative remedies. 2. A review to specifically ensure our patients have had annual screening for screening for depression, screening for tobacco use, and screening for unhealthy alcohol use. For concerning screenings had a discussion with the patient, provided patient education, and recommended follow-up with primary care provider when appropriate. If patient noted with a risk of falling, they received education on strength, gait, and balance training to prevent future risk of falling. Assessment and Plan Assessment and Plan (1) Lumbar spondylosis: (2) Lumbar stenosis with neurogenic claudication: Assessment and Plan: mild relief of NC symptoms from prior ASHWINI no radicular symptoms on exam (3) Myofascial pain: Plan decrease zonegran 50mg HS Previously Dr Frye reviewed MRI imaging of lumbar spine, with mild stenosis she is not a candidate for vertiflex at this point. Can consider spinal cord stimulator in the future if needed. Smoking cessation discussed continue celebrex 200mg BID, cymbalta 60mg daily, flexeril 10mg TID denies side effects, reporting improvement f/u 3 months, sooner if needed. plan to decrease cymbalta to 30mg daily
== END 2024-04-22 09:55 | disposition home or self-care (01) ==
PROVIDERS: PCP Family Medicine; Visit Provider Nurse Practitioner
DX: M47.816 Spondylosis without myelopathy or radiculopathy, lumbar region (principal); M48.062 Spinal stenosis, lumbar region with neurogenic claudication; M79.18 Myalgia, other site
CPT/HCPCS: G0463

== ENCOUNTER 2024-06-24 14:12 | Outpatient (OUT) | payer BC, SELFPAY ==
--- NOTE | 2024-06-24 14:17 | MM_ITS ---
Patient Name: LAWRENCE HARRISON MR#: [id number] : 1965 Exam Date: 06/24/2024 Ordering Doctor: DR Mane Kearney . RADIOLOGY REPORT PROCEDURE: MM TOMOSYNTHESIS SCREENING BI COMPARISON: MG MAMM SCREEN 3D MANJIT CAD, 01/29/2023. MG MAMM SCREEN 3D MANJIT CAD, 09/05/2021. MG MAMM SCREEN MANJIT W CAD, 08/31/2019. MG MAMM MANJIT DIAG W CAD DIG, 10/10/2014. INDICATIONS: Screening Calculator Name NCI Breast Cancer Risk Assessment Tool 5 Year Breast Cancer Risk 1.50% Lifetime Breast Cancer Risk 7.40% Personal Breast Cancer No Personal Ovarian Cancer No Treatments None Family Cancers Grandmother-maternal with breast cancer at age ~65; Grandfather-maternal with lung cancer at age ~63; Mother with rectal cancer at age 75. LOCATION: [facility] BREAST COMPOSITION: There are scattered areas of fibroglandular density. FINDINGS: DIAGNOSTIC CATEGORY 1--NEGATIVE. RIGHT BREAST: No significant suspicious finding. No significant change has occurred. LEFT BREAST: No significant suspicious finding. No significant change has occurred. RECOMMENDATIONS: ROUTINE MAMMOGRAM AND CLINICAL EVALUATION IN 12 MONTHS. PLEASE NOTE: A NORMAL MAMMOGRAM DOES NOT EXCLUDE THE POSSIBILITY OF BREAST CANCER. A CLINICALLY SUSPICIOUS PALPABLE LUMP SHOULD BE BIOPSIED. Dictated by: Juan David Parry M.D. on 06/25/2024 at 12:29 Approved by: Juan David Parry M.D. on 06/25/2024 at 12:40
== END 2024-06-24 14:13 | disposition home or self-care (01) ==
LOC: MAMMO 14:13
PROVIDERS: PCP Family Medicine; Visit Provider Family Medicine
DX: Z12.31 Encounter for screening mammogram for malignant neoplasm of breast (principal); Z80.3 Family history of malignant neoplasm of breast; Z80.1 Family history of malignant neoplasm of trachea, bronchus and lung; Z80.8 Family history of malignant neoplasm of other organs or systems
CPT/HCPCS: 77063; 77067

== ENCOUNTER 2024-07-22 10:28 | Outpatient (OUT) | payer BC, SELFPAY ==
--- NOTE | 2024-07-22 10:44 | P.CN_ITS ---
Consult Note: HPI Data of Consult Patient: known to practice within the last 3 years Requesting Physician: Rachael Robles NP Primary Care Provider: Mane Kearney MD Consult Narrative Reason for consult: f/u Narrative: Jazz Juares a pleasant 58 year old female presents for evaluation and management of chronic low back pain with NC. Patient has failed conservative measures and greater than 6 weeks of PT. Patient was evaluated by Dr Whitman office who would like her to try injection therapy before consideration of surgical intervention. Patient finding benefit from zonegran 50mg HS, celebrex 200mg BID, flexeril 10mg TID, and duloxetine 60mg daily without side effects. Previous Bilateral L3-4, L4-5 facet RFA with >80% improvement in axial low back pain and functional ability ongoing. pain 0/10 increasing to 2/10 aching. cc:: CC: Rachael Robles NP Review of Systems ROS Status of ROS 10 or more systems reviewed and unremark able except as noted in history and below Musculoskeletal Reports: back pain PFSH PFSH Medical History (Updated 12/25/23 @ 09:10 by Shruti Chowdary) Low back pain ?M54.50 - Low back pain, unspecified (ICD-10) Smoker ?F17.200 - Nicotine dependence, unspecified, uncomplicated (ICD-10) COPD (chronic obstructive pulmonary disease) ?J44.9 - Chronic obstructive pulmonary disease, unspecified (ICD-10) Hypertension ?I10 - Essential (primary) hypertension (ICD-10) Surgical History S/P carpal tunnel release ?Z98.890 - Other specified postprocedural states (ICD-10) S/P endometrial ablation ?Z98.890 - Other specified postprocedural states (ICD-10) Meds Home Medications and Allergies Home Medications ?Medication ?Instructions ?Recorded ?Confirmed ?Type amlodipine 5 mg tablet 5 mg PO DAILY 08/28/23 03/22/24 History celecoxib 200 mg capsule 200 mg PO Q12H PRN pain 08/28/23 03/22/24 History cholecalciferol (vitamin D3) 50 50 mcg PO DAILY 08/28/23 03/22/24 History mcg (2,000 unit) tablet losartan 100 1 tab PO DAILY 08/28/23 03/22/24 History mg-hydrochlorothiazide 25 mg tablet umeclidinium 62.5 mcg-vilanterol 1 inh inhalation Q24H 08/28/23 03/22/24 History 25 mcg/actuation powdr for inhalation (Anoro Ellipta) duloxetine 60 mg capsule,delayed 60 mg PO DAILY #30 caps 10/09/23 03/22/24 Rx release albuterol sulfate 90 mcg/actuation inhalation 12/25/23 History aerosol inhaler cyclobenzaprine 10 mg tablet 10 mg PO TID 01/14/24 03/22/24 History zonisamide 50 mg capsule 50 mg PO DAILY #30 caps 04/22/24 Rx Allergies Allergy/AdvReac Type Severity Reaction Status Date / Time ciprofloxacin [From Cipro] Allergy Verified 03/22/24 07:46 Exam Constitutional Documenting provider has reviewed patient's vital signs: yes Common normals: no apparent distress, oriented x3, healthy appearing, alert and well nourished General appearance: cooperative HENMT Common normals: normocephalic, hearing grossly normal bilaterally and moist oral mucous membranes Head and scalp: normocephalic Eye Common normals: PERRL Pupil: PERRL Neck & C-Spine Common normals: full ROM General: normal visual inspection Chest Common normals: inspection of chest normal Respiratory Common normals: normal respiratory effort, no retractions and no use of accessory muscles Back & Pelvis Lumbar spine/lower back: ROM limited, paraspinal muscle tenderness, paraspinal muscle spasm and straight leg raise negative bilaterally Other: lumbar facet loading negative no radiculopathy on exam sensation intact BLE strength 5/5 in BLE Extremity Common normals: normal to inspection and full ROM Neuro Common normals: oriented x3, CN's II-XII intact bilaterally, moves all extremities, no focal motor deficits, no sensory deficits noted and deep tendon reflexes 2+ bilaterally Sensorium/orientation: alert Gait (neuro): antalgic Motor exam: strength 5/5 throughout and no movement abnormalities noted Psych Common normals: mental status grossly normal, thought process normal, cooperative, affect normal, speech normal and activity/motor behavior normal Speech: normal speech Thought process: normal thought process Results Additional Findings Additional findings: If on a controlled substance or opioids, I have checked an [place] report on this patient and there are no aberrancies noted in the prescribing history.??If on a controlled substance or opioid a drug screen was completed and reviewed within the last year, and if there has not been a drug screen completed we ordered one today to monitor higher risk, state monitored pain medication use. As part of providing excellent, safe, comprehensive care, the following was completed at our patient's visit: 1. A medication reconciliation and review to ensure accurate knowledge of current/active medications, including asking our patients to inform us about any [id number] medications or herbal remedies/nutritional supplements/alternative remedies. 2. A review to specifically ensure our patients have had annual screening for screening for depression, screening for tobacco use, and screening for unhealthy alcohol use. For concerning screenings had a discussion with the patient, provided patient education, and recommended follow-up with primary care provider when appropriate. If patient noted with a risk of falling, they received education on strength, gait, and balance training to prevent future risk of falling. Assessment and Plan Assessment and Plan (1) Lumbar spondylosis: (2) Lumbar stenosis with neurogenic claudication: Assessment and Plan: mild relief of NC symptoms from prior ASHWINI no radicular symptoms on exam (3) Myofascial pain: Plan continue current medications f/u 6 months, sooner if needed
== END 2024-07-22 10:29 | disposition home or self-care (01) ==
LOC: PM 10:29
PROVIDERS: PCP Family Medicine; Visit Provider Nurse Practitioner
DX: M47.816 Spondylosis without myelopathy or radiculopathy, lumbar region (principal); M48.062 Spinal stenosis, lumbar region with neurogenic claudication; M79.18 Myalgia, other site
CPT/HCPCS: G0463

== ENCOUNTER 2025-01-12 11:06 | Outpatient (OUT) | payer BC, SELFPAY ==
[2025-01-12 11:28] LABS: Basophils Absolute Auto 0.1 10^3/uL (0.0-0.1); Basophils Percent Auto 0.7 % (0.2-2.0); Eosinophils Absolute Auto 0.4 10^3/uL (0.0-0.7); Eosinophils Percent Auto 4.2 % (0.9-7.0); Hematocrit 40.5 % (36.0-48.0); Hemoglobin 13.3 g/dL (12.0-16.0); Immature Granulocytes Abs Auto 0.02 10^3/uL (0.00-0.03); Immature Granulocytes Pct Auto 0.2 % (0.0-0.5); Lymphocytes Absolute Auto 1.9 10^3/uL (1.2-3.8); Lymphocytes Percent Auto 22.4 % (20.5-60.0); Mean Corpuscular HGB Conc 32.8 g/dL (29.9-35.2); Mean Corpuscular Hemoglobin 29.6 pg (26.7-34.0); Mean Platelet Volume 9.6 fL (9.5-13.5); Monocytes Absolute Auto 0.6 10^3/uL (0.3-0.8); Monocytes Percent Auto 7.4 % (1.7-12.0); Neutrophils Absolute Auto 5.6 10^3/uL (1.4-6.5); Neutrophils Percent Auto 65.1 % (43.0-75.0); Platelet Count 277 10^3/uL (150-450); Red Cell Distribution Width 12.8 % (11.0-15.0); White Blood Count 8.6 10^3/uL (4.0-11.0)
[2025-01-12 11:44] LABS: Estimated Average Glucose 117 mg/dL; Glycohemoglobin A1C 5.7 % (4.5-6.2)
[2025-01-12 12:40] LABS: Alanine Aminotransferase 21 U/L (14-59); Albumin Globulin Ratio 0.7; Albumin Level 3.1 g/dL (3.4-5.0); Alkaline Phosphatase 127 U/L (46-116); Anion Gap 10.7; Aspartate Amino Transferase 22 U/L (15-37); BUN Creatinine Ratio 19.8; Bilirubin Direct 0.1 mg/dL (0.0-0.2); Bilirubin Total 0.3 mg/dL (0.2-1.0); Calcium 9.5 mg/dL (8.5-10.1); Carbon Dioxide 30.8 mmol/L (21.0-32.0); Chloride 99 mmol/L (98-107); Cholesterol 205 mg/dL (<=200); Estimated GFR (African America >60 (>=60 mL/min/1.73m^2); Estimated GFR (Non-African Ame >60 (>=60 mL/min/1.73m^2); Globulin 4.3 g/dL; Glucose 109 mg/dL (74-106); HDL Cholesterol 69 mg/dL (40-60); Potassium 3.5 mmol/L (3.5-5.1); Sodium 137 mmol/L (136-145); Thyroid Stimulating Hormone 3.607 uIU/mL (0.358-3.740); Total Protein 7.4 g/dL (6.4-8.2); Triglycerides 118 mg/dL (<=150); VLDL CHOLESTEROL 23.6 mg/dL
== END 2025-01-12 11:07 | disposition home or self-care (01) ==
LOC: LAB 11:06
PROVIDERS: PCP Family Medicine; Visit Provider Family Medicine
DX: Z00.00 Encounter for general adult medical examination without abnormal findings (principal)
CPT/HCPCS: 36415; 80048; 80061; 80076; 83036; 84443; 85025

== ENCOUNTER 2025-01-19 10:39 | Outpatient (OUT) | payer BC, SELFPAY ==
--- NOTE | 2025-01-19 10:46 | P.CN_ITS ---
Consult Note: HPI Data of Consult Patient: known to practice within the last 3 years Requesting Physician: Rachael Robles NP Primary Care Provider: Mane Kearney MD Consult Narrative Reason for consult: f/u Narrative: Jazz Juares a pleasant 59 year old female presents for evaluation and management of chronic low back pain with NC. Patient has failed conservative measures and greater than 6 weeks of PT. Patient was evaluated by Dr Whitman office who would like her to try injection therapy before consideration of surgical intervention. Patient finding benefit from zonegran 50mg HS, celebrex 200mg BID, flexeril 10mg TID, and duloxetine 60mg daily without side effects. Previous Bilateral L3-4, L4-5 facet RFA with >80% improvement in axial low back pain and functional ability greater than 6 months. Pt did fall in November due to slipping on ice and has had increased middle and low back pain since her fall. no recent imaging, did not go to the ER for evaluation. denies hitting her head or LOC. cc:: CC: Rachael Robles NP Review of Systems ROS Status of ROS 10 or more systems reviewed and unremark able except as noted in history and below Musculoskeletal Reports: back pain PFSH PFSH Medical History (Updated 01/19/25 @ 10:48 by Rachael Robles NP) Low back pain ?M54.50 - Low back pain, unspecified (ICD-10) Smoker ?F17.200 - Nicotine dependence, unspecified, uncomplicated (ICD-10) COPD (chronic obstructive pulmonary disease) ?J44.9 - Chronic obstructive pulmonary disease, unspecified (ICD-10) Hypertension ?I10 - Essential (primary) hypertension (ICD-10) Surgical History S/P carpal tunnel release ?Z98.890 - Other specified postprocedural states (ICD-10) S/P endometrial ablation ?Z98.890 - Other specified postprocedural states (ICD-10) Meds Home Medications and Allergies Home Medications ?Medication ?Instructions ?Recorded ?Confirmed ?Type amlodipine 5 mg tablet 5 mg PO DAILY 08/28/23 03/22/24 History celecoxib 200 mg capsule 200 mg PO Q12H PRN pain 08/28/23 03/22/24 History cholecalciferol (vitamin D3) 50 50 mcg PO DAILY 08/28/23 03/22/24 History mcg (2,000 unit) tablet losartan 100 1 tab PO DAILY 08/28/23 03/22/24 History mg-hydrochlorothiazide 25 mg tablet umeclidinium 62.5 mcg-vilanterol 1 inh inhalation Q24H 08/28/23 03/22/24 History 25 mcg/actuation powdr for inhalation (Anoro Ellipta) duloxetine 60 mg capsule,delayed 60 mg PO DAILY #30 caps 10/09/23 03/22/24 Rx release albuterol sulfate 90 mcg/actuation inhalation 12/25/23 History aerosol inhaler cyclobenzaprine 10 mg tablet 10 mg PO TID 01/14/24 03/22/24 History zonisamide 50 mg capsule 50 mg PO DAILY #30 caps 04/22/24 Rx Allergies Allergy/AdvReac Type Severity Reaction Status Date / Time ciprofloxacin (From Cipro) Allergy Verified 03/22/24 07:46 Exam Constitutional Documenting provider has reviewed patient's vital signs: yes Common normals: no apparent distress, oriented x3, healthy appearing, alert and well nourished General appearance: cooperative [facility] Common normals: normocephalic, hearing grossly normal bilaterally and moist oral mucous membranes Head and scalp: normocephalic Eye Common normals: PERRL Pupil: PERRL Neck & C-Spine Common normals: full ROM General: normal visual inspection Chest Common normals: inspection of chest normal Respiratory Common normals: normal respiratory effort, no retractions and no use of accessory muscles Back & Pelvis Thoracic spine/upper back: ROM limited, pain with ROM and thoracic spinal tenderness T-spine tenderness location: T10, T11 and T12 Lumbar spine/lower back: ROM limited, lumbar spinal tenderness Lumbar spinal tenderness location: L1, L2, L3, L4 and L5, paraspinal muscle tenderness, paraspinal muscle spasm and straight leg raise negative bilaterally Other: facet loading positive no radiculopathy on exam sensation intact BLE strength 5/5 in BLE Extremity Common normals: normal to inspection and full ROM Neuro Common normals: oriented x3, CN's II-XII intact bilaterally, moves all extremities, no focal motor deficits, no sensory deficits noted and deep tendon reflexes 2+ bilaterally Sensorium/orientation: alert Gait (neuro): antalgic Motor exam: strength 5/5 throughout and no movement abnormalities noted Psych Common normals: mental status grossly normal, thought process normal, cooperative, affect normal, speech normal and activity/motor behavior normal Speech: normal speech Thought process: normal thought process Results Additional Findings Additional findings: If on a controlled substance or opioids, I have checked an [place] report on this patient and there are no aberrancies noted in the prescribing history.??If on a controlled substance or opioid a drug screen was completed and reviewed within the last year, and if there has not been a drug screen completed we ordered one today to monitor higher risk, state monitored pain medication use. As part of providing excellent, safe, comprehensive care, the following was completed at our patient's visit: 1. A medication reconciliation and review to ensure accurate knowledge of current/active medications, including asking our patients to inform us about any [id number] medications or herbal remedies/nutritional supplements/alternative remedies. 2. A review to specifically ensure our patients have had annual screening for screening for depression, screening for tobacco use, and screening for unhealthy alcohol use. For concerning screenings had a discussion with the patient, provided patient education, and recommended follow-up with primary care provider when appropriate. If patient noted with a risk of falling, they received education on strength, gait, and balance training to prevent future risk of falling. Portions of this note may have been carried over from the previous visit and updated as appropriate. Please note this office utilizes paper charting in addition to the electronic medical record. A list of current medications, vitals, and PMH is available there as the clinical staff outside of myself do not have access to [employer] charting during the clinic day operations. As part of providing quality comprehensive care the current medications, vitals, and PMH were reviewed in the paper chart. Assessment and Plan Assessment and Plan (1) Lumbar spondylosis: (2) Lumbar stenosis with neurogenic claudication: Assessment and Plan: mild relief of NC symptoms from prior ASHWINI no radicular symptoms on exam (3) Myofascial pain: (4) Thoracic back pain: Plan declining repeat bilateral L3-4 L4-5 facet RFA at this time due to cost update thoracic and lumbar xray to rule out fracture, increased pain post fall in november continue current medications f/u 6 months, sooner if needed
--- OUTSIDE RECORDS SUMMARY | 2025-01-19 10:58 | XMS_ITS | CCD ---
Author Organization [facility] Care Team Providers Care Crisis Intervention Specialist Name Role Phone JESUS, DR MANE Avina Primary Care Unavailable EDDIE ., DR VAMSHI Correa Consulting Unavailable JESUS, DR MANE Avina Admitting Unavailable JESUS, DR MANE Avina Attending Unavailable SUSY, DR JH Hunter Consulting Unavailable JESUS, DR MANE Avina Consulting Unavailable HI ., INA Consulting Unavailable STRAWSER, DEL Consulting Unavailable CHOU, MALCOLM Consulting Unavailable JESUS, DR MANE Avina Admitting Unavailable JESUS, DR MANE Avina Attending Unavailable JESUS, DR MANE Avina Primary Care Unavailable [place], DR NIA Uriostegui Consulting Unavailable JESUS, DR MANE Avina Consulting Unavailable MD Mane Lee Primary Care Provider [phone] BERNICE Shipman Attending Provider Mane Lee MD Primary Care Provider [phone] Lakisha Shipman Attending Unavailable Lakisha Shipman Admitting Unavailable Mane Lee Primary Care Unavailable Melva BACK, Corine Puentes Attending Unavailable Melva BACK, Corine Puentes Attending Unavailable Melva BACK, Corine Puentes Attending Unavailable Melva BACK, Corine Puentes Attending Unavailable Mane Lee MD Unavailable MANE LEE Attending Unavailable JESUS, MANE Attending Unavailable MANE LEE Attending Unavailable MANE LEE Attending Unavailable JESUS, MANE Attending Unavailable MANE LEE Attending Unavailable Allergies Allergy Classification Reported Allergen(s) Allergy Type Date of Onset Reaction(s) Facility (1 source) Ciprofloxacin Drug Allergy 10-19-2014 [facility] Repository (13 sources) Ciprofloxacin Drug Allergy 10-31-2023 [facility] (1 source) Ciprofloxacin Drug Allergy 12-10-2023 [facility] Repository Medications Current Medications Medication Drug Class(es) Dates Sig (Normalized) Sig (Original) [id number] 200 actuat albuterol 0.09 mg/actuat metered dose inhaler (20 sources) beta2-Adrenergic Agonist Start: 10-28-2023 albuterol (2.5 MG/3ML) 0.083% nebulizer solution Indications: Moderate COPD (chronic obstructive pulmonary disease) (CMS/HCC) Take 3 mL (2.5 mg) by nebulization every 6 (six) hours if needed for shortness of breath 75 mL 10/28/2023 Active Start: 10-28-2023 End: 07-13-2025 take 2 puff(s) by inhalation every six hours albuterol HFA 90 mcg/act inhaler Indications: Chronic obstructive pulmonary disease, unspecified COPD type (CMS/HCC) Inhale 2 puffs every 6 (six) hours if needed for shortness of breath 18 g 3 07/01/2024 07/13/2025 Active amLODIPine 5 mg oral tablet (17 sources) Dihydropyridine Calcium Channel Cintia Start: 10-28-2023 End: 08-16-2025 take 1 tablet by mouth once daily amLODIPine (Norvasc) 5 MG tablet Indications: Essential hypertension, benign (CMS/HCC) Take 1 tablet (5 mg) by mouth Daily 90 tablet 3 08/04/2024 08/16/2025 Active cefdinir 300 mg oral capsule (2 sources) Cephalosporin Antibacterial Start: 08-04-2024 End: 08-14-2024 take 1 capsule by mouth in the morning cefdinir (Omnicef) 300 MG capsule Indications: Acute bronchitis due to other specified organisms Take 1 capsule (300 mg) by mouth in the morning and 1 capsule (300 mg) before bedtime. Do all this for 10 days. 20 capsule 08/04/2024 08/14/2024 Active celecoxib 200 mg oral capsule (15 sources) Nonsteroidal Anti-inflammatory Drug Start: 10-28-2023 End: 08-16-2025 take 1 capsule by mouth in the morning celecoxib (CeleBREX) 200 MG capsule Indications: Spinal stenosis, lumbar region, without neurogenic claudication Take 1 capsule (200 mg) by mouth in the morning and 1 capsule (200 mg) before bedtime. 180 capsule 3 08/04/2024 08/16/2025 Active cholecalciferol 0.05 mg oral tablet (15 sources) Vitamin D Start: 10-28-2023 End: 08-10-2025 take 1 tablet by mouth once daily cholecalciferol (Vitamin D-3) 50 MCG (1999 UT) tablet Indications: Vitamin D deficiency Take 1 tablet (50 mcg) by mouth Daily 90 tablet 3 08/04/2024 08/10/2025 Active cyclobenzaprine hydrochloride 10 mg oral tablet (15 sources) Muscle Relaxant Start: 09-15-2023 End: 08-04-2024 take 1 tablet by mouth three times daily as needed for muscle spasms cyclobenzaprine (Flexeril) 10 MG tablet Indications: Spinal stenosis, lumbar region, without neurogenic claudication Take 1 tablet (10 mg) by mouth 3 (three) times a day as needed for muscle spasms 90 tablet 3 08/04/2024 Active DULoxetine 60 mg delayed release oral capsule (15 sources) Serotonin and Norepinephrine Reuptake Inhibitor Start: 10-28-2023 End: 08-04-2025 take 1 capsule by mouth once daily DULoxetine (Cymbalta) [address] capsule Indications: Degeneration of lumbar intervertebral disc Take 1 capsule (60 mg) by mouth Daily 90 capsule 3 08/04/2024 08/04/2025 Active furosemide 40 mg oral tablet (15 sources) Loop Diuretic Start: 10-28-2023 End: 08-04-2025 take 1 tablet by mouth once daily furosemide (Lasix) 40 MG tablet Indications: Lower extremity edema Take 1 tablet (40 mg) by mouth Daily 90 tablet 3 08/04/2024 08/04/2025 Active hydroCHLOROthiazide 25 mg / losartan potassium 100 mg oral tablet (13 sources) Thiazide Diuretic, Angiotensin 2 Receptor Cintia Start: 07-27-2024 End: 07-27-2025 take 1 tablet by mouth once daily losartan-hydroCHLO ROthiazide (Hyzaar) 100-25 MG tablet Indications: Essential hypertension, benign (CMS/HCC) Take 1 tablet by mouth Daily 90 tablet 3 07/27/2024 07/27/2025 Active Start: 10-28-2023 End: 10-27-2024 take 1 tablet by mouth in the morning losartan-hydroCHLOROthiazide (Hyzaar) 10 0-25 MG tablet Indications: Essential hypertension, benign (CMS/HCC) Take 1 tablet by mouth in the morning. 90 tablet 3 10/28/2023 10/27/2024 Active phentermine hydrochloride 37.5 mg oral tablet (14 sources) Sympathomimetic Amine Anorectic Start: 01-10-2025 End: 02-09-2025 take 45-49.9 tablets by mouth before mealtime phentermine (Adipex-P) 37.5 MG tablet Indications: Class 3 severe obesity due to excess calories with serious comorbidity and body mass index (BMI) of 45.0 to 49.9 in adult (CMS/HCC) Take 1 tablet (37.5 mg) by mouth in the morning. Take before meals. 30 tablet 01/10/2025 02/09/2025 Active Start: 06-02-2024 End: 08-04-2024 take 1 tablet by mouth before mealtime phentermine (Adipex-P) 37.5 MG tablet Indications: Morbid obesity due to excess calories (CMS/HCC) Take 1 tablet (37.5 mg) by mouth in the morning. Take before meals. 30 tablet 07/01/2024 08/04/2024 Discontinued Start: 11-26-2023 End: 12-26-2023 take 1 tablet by mouth in the morning phentermine (Adipex-P) 37.5 MG tablet Indications: Morbid obesity (CMS/HCC) Take 1 tablet (37.5 mg) by mouth in the morning. 30 tablet 0 11/26/2023 12/26/2023 Active potassium chloride 20 meq extended release oral tablet (15 sources) Start: 10-28-2023 End: 08-04-2025 take 1 tablet by mouth once daily potassium chloride CR (K-Tab) 20 MEQ ER tablet Indications: Lower extremity edema Take 1 tablet (20 mEq) by mouth Daily 90 tablet 3 08/04/2024 08/04/2025 Active predniSONE 50 mg oral tablet (2 sources) Start: 08-04-2024 End: 08-10-2024 take 1 tablet by mouth once daily predniSONE (Deltasone) 50 MG tablet Indications: Acute bronchitis due to other specified organisms Take 1 tablet (50 mg) by mouth Daily for 6 days 6 tablet 08/04/2024 08/10/2024 Active 30 actuat umeclidinium 0.0625 mg/actuat / vilanterol 0.025 mg/actuat dry powder inhaler (15 sources) Anticholinergic , beta2-Adrenergi c Agonist Start: 08-04-2024 take 1 puff(s) by mouth once daily Anoro Ellipta 62.5-25 MCG/ACT aerosol powder Indications: Moderate COPD (chronic obstructive pulmonary disease) (CMS/HCC) INHALE 1 PUFF BY MOUTH DAILY 60 each 5 08/04/2024 Active Start: 07-08-2024 End: 08-16-2025 take 1 puff(s) by inhalation once daily Umeclidinium-Vilanterol (Anoro Ellipta) 62.5-25 MCG/ACT aerosol powder Indications: Moderate COPD (chronic obstructive pulmonary disease) (CMS/HCC) Inhale 1 puff Daily 1 each 5 08/04/2024 08/16/2025 Active Start: 10-28-2023 End: 11-08-2024 take 1 puff(s) by inhalation in the morning Umeclidinium-Vilanterol (Anoro Ellipta) 62.5-25 MCG/ACT aerosol powder Indications: Moderate COPD (chronic obstructive pulmonary disease) (CMS/HCC) Inhale 1 puff in the morning. 1 each 6 10/28/2023 11/08/2024 Active zonisamide 50 mg oral capsule (14 sources) Anti-epileptic Agent Start: 07-01-2024 End: 08-04-2024 take 1 capsule by mouth at bedtime zonisamide (Zonegran) 50 MG capsule Indications: Spinal stenosis, lumbar region, without neurogenic claudication Take 1 capsule (50 mg) by mouth at bedtime 90 capsule 3 08/04/2024 Active Start: 04-01-2024 End: 07-01-2024 zonisamide (Zonegran) 100 MG capsule Take 50 mg by mouth at bedtime 04/01/2024 07/01/2024 Discontinued (Dose adjustment) Problems Active Problems Problem Classification Problem Date Documented Date Episodic/Chronic Chronic obstructive pulmonary disease and bronchiectasis (20 sources) Chronic obstructive pulmonary disease, unspecified; 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: [Chronic obstructive pulmonary disease with (acute) lower respiratory infection] Onset: 11-20-2022 Chronic Essential hypertension (20 sources) Essential (primary) hypertension; 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: [Benign essential hypertension] Onset: 11-20-2022 10-31-2023 Chronic Nutritional deficiencies (15 sources) Vitamin D deficiency; 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: [Vitamin D deficiency, unspecified] Onset: 10-31-2023 10-31-2023 Chronic Other aftercare (1 source) Other terminal superintendent (current) drug therapy; 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: [OTH MCC CURRENT DRUG THERAPY] Onset: 11-20-2022 Episodic Other aftercare (1 source) correction (current) use of opiate analgesic; 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: [MCC CURRNT USE OPIATE ANALGES] Onset: 11-20-2022 Episodic Other lower respiratory disease (2 sources) Shortness of breath; 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: [SHORTNESS OF BREATH] Onset: 11-10-2022 Episodic Other nutritional; endocrine; and metabolic disorders (12 sources) Morbid obesity; 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: [Morbid (severe) obesity due to excess calories] Onset: 10-31-2023 10-31-2023 Chronic Other nutritional; endocrine; and metabolic disorders (5 sources) Severe obesity; 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: [Class 3 severe obesity due to excess calories with serious comorbidity and body mass index (BMI) of 45.0 to 49.9 in adult ([facility])] Onset: 10-31-2023 01-10-2025 Chronic Other screening for suspected conditions (not mental disorders or infectious disease) (1 source) Encounter for screening mammogram for malignant neoplasm of breast; 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: [ENC SCR MAMMO MALIG NEOPLASM BREAST] Onset: 02-01-2023 Episodic Pneumonia (except that caused by tuberculosis or sexually transmitted disease) (1 source) Pneumonia, unspecified organism; 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: [PNEUMONIA UNSPECIFIED ORGANISM] Onset: 11-20-2022 Episodic Residual codes; unclassified (13 sources) Obstructive sleep apnea syndrome; 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: [Obstructive [...] Spondylosis; intervertebral disc disorders; other back problems (2 sources) Degeneration of lumbar intervertebral disc; 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: [Other intervertebral disc degeneration, lumbar region] 08-04-2024 Chronic Substance-related disorders (8 sources) Nicotine dependence, cigarettes, uncomplicated; 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: [Cigarette smoker ] Onset: 11-20-2022 01-10-2025 Chronic Unclassified (1 source) CONTACT W/AND (SUSP) EXPOS COVID-19; 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: [CONTACT W/AND (SUSP) EXPOS COVID-19] Onset: 11-20-2022 Unclassified (1 source) Low back pain, unspecified; 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: [Low back pain, unspecified] Onset: 12-10-2023 Past or Other Problems Problem Classification Problem Date Documented Da te Episodic/Chronic Acute bronchitis (8 sources) Acute infective bronchitis; 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: [Acute bronchitis due to other specified organisms] Onset: 08-04-2024 Resolved: 01-10-2025 08-04-2024 Episodic Other and unspecified benign neoplasm (13 sources) History of polyp of colon; 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: [Personal history of colonic polyps] Onset: 10-31-2023 10-31-2023 Episodic Other bone disease and musculoskeletal deformities (13 sources) Osteopenia; 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: [Other specified disorders of bone density and structure, right thigh] Onset: 10-31-2023 10-31-2023 Episodic Other injuries and conditions due to external causes (10 sources) Unspecified injury of other specified muscles, fascia and tendons at wrist and hand level, right hand, initial encounter; 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: [Elbow, forearm, and wrist injury] Onset: 06-02-2024 06-02-2024 Episodic Residual codes; unclassified (19 sources) Edema of lower extremity; 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: [Localized edema] Onset: 10-31-2023 10-31-2023 Episodic Spondylosis; intervertebral disc disorders; other back problems (20 sources) Degenerative lumbar spinal stenosis; 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: [Spinal stenosis, lumbar region without neurogenic claudication] Onset: 10-31-2023 10-31-2023 Episodic Results Test Name Value Interpretation Reference Range Facility ALL CBC WITH AUTO DIFFon BASOPHILS ABSOLUTE AUTO 0.1 [facility] Basophils/100 WBC (Bld) 0.7 % 0.2 - 2.0 % [facility] Eosinophils/100 WBC (Bld) 4.2 % 0.9 - 7.0 % [facility] Erythrocyte distribution width (RBC) [Ratio] 12.8 % 11.0 - 15.0 % [facility] Hematocrit (Bld) [Volume fraction] 40.5 % 36.0 - 48.0 % [facility] Hemoglobin (Bld) [Mass/Vol] 13.3 g/dL 12.0 - 16.0 g/dL [facility] IMMATURE GRANULOCYTES ABS AUTO 0.02 [facility] Immature granulocytes/100 WBC (Bld) 0.2 % 0.0 - 0.5 % [facility] LYMPHOCYTES ABSOLUTE AUTO 1.9 [facility] Lymphocytes/100 WBC (Bld) 22.4 % 20.5 - 60.0 % [facility] MCH (RBC) [Entitic mass] 29.6 pg 26.7 - 34.[address] [facility] MCHC (RBC) [Mass/Vol] 32.8 g/dL 29.9 - 35.2 g/dL [facility] MCV (RBC) [Entitic vol] 90 fL 81.0 - 99.[address] [facility] MONOCYTES ABSOLUTE AUTO 0.6 [facility] Monocytes/100 WBC (Bld) 7.4 % 1.7 - 12.0 % [facility] NEUTROPHILS ABSOLUTE AUTO 5.6 [facility] Neutrophils/100 WBC (Bld) 65.1 % 43.0 - 75.0 % [facility] Platelet mean volume (Bld) [Entitic vol] 9.6 fL 9.5 - 13.[address] [facility] TBH EO # 0.4 [facility] PLT 277 [facility] RBC 4.5 [facility] WBC 8.6 [facility] XR lumbar spine 6V w bending on 12-10-2023 XR lumbar spine 6V w bending [facility] [place] [address] XRay Report Signed Patient: Lawrence Harrison MR#: [id number] 8 : 1965 Acct:[id number] Age/Sex: 58 / F ADM Date: 12/10/23 Loc: XD Room: Type: [facility] Attending Dr: Lakisha AMBROSIOC Copies to: [...] Smith Jr., D.O.12/10/2023 3:58 PM Dictation Location: [place] [address] Transcribed By: [facility] 12/10/23 1558 Dictated By: Owen Smith Jr, DO 12/10/23 1557 Signed By: 12/10/23 1558 Normal [facility] HEMOGLOBINon 01-29-2023 Hemoglobin (Bld) [Mass/Vol] 14.6 g/dL Normal 12.0-16.0 [facility] Comment on above: Performed By: #### H GB #### [facility] [address] [place] [address] Dr. Evangelist Chicas MG MAMM SCREEN 3D MANJIT CADon 01-29-2023 MG MAMM SCREEN 3D MANJIT CAD Patient: LAWRENCE HARRISON Exam Date: 01/29/2023 : 1965 Gender:F Ordering : DR MANE LEE . Admission #: [id number] Family : Order #: [id number] CLICK HERE TO VIEW EXAM RADIOLOGY REPORT [...] rectal cancer at age 73. LOCATION: [facility] BREAST COMPOSITION: Scattered areas fibroglandular density. [...] MD on 01/29/2023 at 09:29 Normal [facility] CBC AUTO DIFFon 11-14-2022 BASO # 0.0 103/ul Normal 0.0-0.1 [facility] Comment on above: Performed By: #### B MP #### [facility] [address] [place] [address] Dr. Evangelist Chicas Basophils/100 WBC (Bld) 0.1 % Critically low 0.2-2.0 [facility] Comment on above: Performed By: #### B MP #### [facility] [address] [place] [address] Dr. Evangelist Chicas EO # 0.0 103/ul Normal 0.0-0.7 [facility] Comment on above: Performed By: #### B MP #### [facility] [address] [place] [address] [address] Evangelist Chicas Eosinophils/100 WBC (Bld) 0.1 % Critically low 0.9-7.0 [facility] Comment on above: Performed By: #### B MP #### [facility] [address] [place] [address] Dr. Evangelist Chicas Erythrocyte distribution width (RBC) [Ratio] 13.1 % Normal 11.0-15.0 [facility] Comment on above: Performed By: #### B MP #### [facility] [address] [place] [address] Dr. Evangelist Chicas Hematocrit (Bld) [Volume fraction] 41.4 % Normal 36.0-48.0 [facility] Comment on above: Performed By: #### B MP #### [facility] [address] [place] [address] Dr. Evangelist Chicas Hemoglobin (Bld) [Mass/Vol] 13.0 g/dL Normal 12.0-16.0 [facility] Comment on above: Performed By: #### B MP #### [facility] [address] [place] [address] Dr. Evangelist Chicas IG # 0.03 10e3/ul Normal 0.00-0.03 [facility] Comment on above: Performed By: #### B MP #### [facility] [address] [place] [address] Dr. Evangelist Chicas IG % 0.4 % Normal 0.0-0.5 [facility] Comment on above: Performed By: #### B MP #### [facility] [address] [place] [address] Dr. Evangelist Chicas LYMPH # 0.4 103/ul Critically low 1.2-3.8 [facility] Comment on above: Performed By: #### B MP #### [facility] [address] [place] [address] Dr. Evangelist Chicas Lymphocytes/100 WBC (Bld) 4.7 % Critically low 20.5-60.0 [facility] Comment on above: Performed By: #### B MP #### [facility] [address] [place] [address] Dr. Evangelist Chicas MANUAL DIFF REQ NO Normal [facility] Comment on above: Performed By: #### B MP #### [facility] [address] [place] [address] Dr. Evangelist Chicas MCH (RBC) [Entitic mass] 29.1 pg Normal 26.7-34.0 [facility] Comment on above: Performed By: #### B MP #### [facility] [address] [address] [address] Evangelist Chicas MCHC (RBC) [Mass/Vol] 31.4 g/dL Normal 29.9-35.2 [facility] Comment on above: Performed By: #### B MP #### [facility] [address] [address] [address] Evangelist Chicas MCV (RBC) [Entitic vol] 92.8 fL Normal 81.0-99.0 [facility] Comment on above: Performed By: #### B MP #### [facility] [address] [place] [address] Dr. Evangelist Chicas MONO # 0.1 103/ul Critically low 0.3-0.8 [facility] Comment on above: Performed By: #### B MP #### [facility] [address] [place] [address] Dr. Evangelist Chicas Monocytes/100 WBC (Bld) 1.8 % Normal 1.7-12.0 [facility] Comment on above: Performed By: #### B MP #### [facility] [address] [place] [address] Dr. Evangelist Chicas NEUT # 6.8 103/ul Critically high 1.4-6.[address] [facility] Comment on above: Performed By: #### B MP #### [facility] [address] [place] [address] Dr. Evangelist Chicas Neutrophils/100 WBC (Bld) 92.9 % Critically high 43.0-75.0 [facility] Comment on above: Performed By: #### B MP #### [facility] [address] [place] [address] Dr. Evangelist Chicas Platelet mean volume (Bld) [Entitic vol] 11.3 fL Normal 9.5-13.5 [facility] Comment on above: Performed By: #### B MP #### [facility] [address] [address] [address] Evangelist Chicas PLT 109 103/ul Critically low 150-450 [facility] Comment on above: Performed By: #### B MP #### [facility] [address] [place] [address] Dr. Evangelist Chicas RBC 4.46 106/ul Normal 4.20-5.40 [facility] Comment on above: Performed By: #### B MP #### [facility] [address] [place] [address] Dr. Evangelist Chicas WBC 7.4 103/ul Normal 4.0-11.0 [facility] Comment on above: Performed By: #### B MP #### [facility] [address] [place] [address] Dr. Evangelist Chicas PROF CHEM 8 (BAS METB)on Anion gap [Moles/Vol] 11.8 mmol/L Normal [facility] Comment on above: Performed By: #### B MP #### [facility] [address] [place] [address] Dr. Evangelist Chicas Calcium [Mass/Vol] 9.3 mg/dL Normal 8.5-10.1 [facility] Comment on above: Performed By: #### B MP #### [facility] [address] [place] [address] Dr. Evangelist Chicas Chloride [Moles/Vol] 99 mmol/L Normal 98-107 [facility] Comment on above: Performed By: #### B MP #### [facility] [address] [place] [address] Dr. Evangelist Chicas CO2 [Moles/Vol] 31.6 mmol/L Normal 21.0-32.0 [facility] Comment on above: Performed By: #### B MP #### [facility] [address] [place] [address] Dr. Evangelist Chicas Creatinine [Mass/Vol] 0.75 mg/dL Normal 0.55-1.02 [facility] Comment on above: Performed By: #### B MP #### [facility] [address] [place] [address] Dr. Evangelist Chicas EGFR-AF GHANAIAN >60 Normal >=60 [facility] Comment on above: Performed By: #### B MP #### [facility] [address] [address] [address] Evangelist Chicas EGFR-NON AF GHANAIAN >60 Normal >=60 [facility] Comment on above: Performed By: #### B MP #### [facility] [address] [address] [address] Evangelist Chicas Glucose [Mass/Vol] 162 mg/dL Critically high 74-106 [facility] Comment on above: Performed By: #### B MP #### [facility] [address] [address] [address] Evangelist Chicas Potassium [Moles/Vol] 4.4 mmol/L Normal 3.5-5.1 [facility] Comment on above: Performed By: #### B MP #### [facility] [address] [address] [address] Evangelist Chicas Sodium [Moles/Vol] 138 mmol/L Normal 136-145 [facility] Comment on above: Performed By: #### B MP #### [facility] [address] [address] [address] Evangelist Chicas Urea nitrogen [Mass/Vol] 32.0 mg/dL Critically high 7.0-18.0 [facility] Comment on above: Performed By: #### B MP #### [facility] [address] [place] [address] Dr. Evangelist Chicas Urea nitrogen/Creatinin e [Mass ratio] 42.7 mg/mg Normal [facility] Comment on above: Performed By: #### B MP #### [facility] [address] [place] [address] Dr. Evangelist Chicas CBC AUTO DIFFon 11-13-2022 BASO # 0.0 103/ul Normal 0.0-0.1 [facility] Comment on above: Performed By: #### C BC #### [facility] [address] [place] [address] Dr. Evangelist Chicas Basophils/100 WBC (Bld) 0.1 % Critically low 0.2-2.0 [facility] Comment on above: Performed By: #### C BC #### [facility] [address] [place] [address] Dr. Evangelist Chicas EO # 0.0 103/ul Normal 0.0-0.7 [facility] Comment on above: Performed By: #### C BC #### [facility] [address] [place] [address] Dr. Evangelist Chicas Eosinophils/100 WBC (Bld) 0.0 % Critically low 0.9-7.0 [facility] Comment on above: Performed By: #### C BC #### [facility] [address] [place] [address] Dr. Evangelist Chicas Erythrocyte distribution width (RBC) [Ratio] 12.9 % Normal 11.0-15.0 [facility] Comment on above: Performed By: #### C BC #### [facility] [address] [place] [address] Dr. Evangelist Chicas Hematocrit (Bld) [Volume fraction] 39.0 % Normal 36.0-48.0 [facility] Comment on above: Performed By: #### C BC #### [facility] [address] [place] [address] Dr. Evangelist Chicas Hemoglobin (Bld) [Mass/Vol] 12.3 g/dL Normal 12.0-16.0 [facility] Comment on above: Performed By: #### C BC #### [facility] [address] [place] [address] Dr. Evangelist Chicas IG # 0.04 10e3/ul Critically high 0.00-0.03 [facility] Comment on above: Performed By: #### C BC #### [facility] [address] [place] [address] Dr. Evangelist Chicas IG % 0.4 % Normal 0.0-0.5 [facility] Comment on above: Performed By: #### C BC #### [facility] [address] [place] [address] Dr. Evangelist Chicas LYMPH # 0.5 103/ul Critically low 1.2-3.8 [facility] Comment on above: Performed By: #### C BC #### [facility] [address] [place] [address] Dr. Evangelist Chicas Lymphocytes/100 WBC (Bld) 4.5 % Critically low 20.5-60.0 [facility] Comment on above: Performed By: #### C BC #### [facility] [address] [place] [address] Dr. Evangelist Chicas MANUAL DIFF REQ NO Normal [facility] Comment on above: Performed By: #### C BC #### [facility] [address] [place] [address] Dr. Evangelist Chicas MCH (RBC) [Entitic mass] 29.7 pg Normal 26.7-34.0 [facility] Comment on above: Performed By: #### C BC #### [facility] [address] [place] [address] Dr. Evangelist Chicas MCHC (RBC) [Mass/Vol] 31.5 g/dL Normal 29.9-35.2 [facility] Comment on above: Performed By: #### C BC #### [facility] [address] [place] [address] Dr. Evangelist Chicas MCV (RBC) [Entitic vol] 94.2 fL Normal 81.0-99.0 [facility] Comment on above: Performed By: #### C BC #### [facility] [address] [place] [address] Dr. Evangelist Chicas MONO # 0.2 103/ul Critically low 0.3-0.8 [facility] Comment on above: Performed By: #### C BC #### [facility] [address] [place] [address] Dr. Evangelist Chicas Monocytes/100 WBC (Bld) 1.5 % Critically low 1.7-12.0 [facility] Comment on above: Performed By: #### C BC #### [facility] [address] [place] [address] Dr. Evangelist Chicas NEUT # 10.5 103/ul Critically high 1.4-6.5 [facility] Comment on above: Performed By: #### C BC #### [facility] [address] [address] [address] Evangelist Chicas Neutrophils/100 WBC (Bld) 93.5 % Critically high 43.0-75.0 [facility] Comment on above: Performed By: #### C BC #### [facility] [address] [address] [address] Evangelist Chicas Platelet mean volume (Bld) [Entitic vol] 10.4 fL Normal 9.5-13.5 [facility] Comment on above: Performed By: #### C BC #### [facility] [address] [place] [address] Dr. Evangelist Chicas PLT 169 103/ul Normal 150-450 [facility] Comment on above: Performed By: #### C BC #### [facility] [address] [place] [address] Dr. Evangelist Chicas RBC 4.14 106/ul Critically low 4.20-5.40 [facility] Comment on above: Performed By: #### C BC #### [facility] [address] [address] [address] Evangelist Chicas WBC 11.2 103/ul Critically high 4.0-11.0 [facility] Comment on above: Performed By: #### C BC #### [facility] [address] [place] [address] Dr. Evangelist Chicas CULTURE SPUTUMon 11-13-2022 CULTURE SPUTUM Culture Observations : NORMAL RESPIRATORY SHAINA. Normal [facility] Comment on above: Performed By: #### B MP #### [facility] [address] [place] [address] Dr. Evangelist Chicas PROF CHEM 8 (BAS METB)on Anion gap [Moles/Vol] 9.2 mmol/L Normal [facility] Comment on above: Performed By: #### D DIM #### [facility] [address] [place] [address] Dr. Evangelist Chicas Calcium [Mass/Vol] 9.1 mg/dL Normal 8.5-10.1 [facility] Comment on above: Performed By: #### D DIM #### [facility] [address] [address] [address] Evangelist Chicas Chloride [Moles/Vol] 100 mmol/L Normal 98-107 [facility] Comment on above: Performed By: #### D DIM #### [facility] [address] [address] [address] Evangelist Chicas CO2 [Moles/Vol] 33.8 mmol/L Critically high 21.0-32.0 [facility] Comment on above: Performed By: #### D DIM #### [facility] [address] [address] [address] Evangelist Chicas Creatinine [Mass/Vol] 0.85 mg/dL Normal 0.55-1.02 [facility] Comment on above: Performed By: #### D DIM #### [facility] [address] [place] [address] Dr. Evangelist Chicas EGFR-AF GHANAIAN >60 Normal >=60 [facility] Comment on above: Performed By: #### D DIM #### [facility] [address] [address] [address] Evangelist Chicas EGFR-NON AF GHANAIAN >60 Normal >=60 [facility] Comment on above: Performed By: #### D DIM #### [facility] [address] [address] [address] Evangelist Chicas Glucose [Mass/Vol] 151 mg/dL Critically high 74-106 [facility] Comment on above: Performed By: #### D DIM #### [facility] [address] [address] [address] Evangelist Chicas Potassium [Moles/Vol] 4.0 mmol/L Normal 3.5-5.1 [facility] Comment on above: Performed By: #### D DIM #### [facility] [address] [address] [address] Evangelist Chicas Sodium [Moles/Vol] 139 mmol/L Normal 136-145 [facility] Comment on above: Performed By: #### D DIM #### [facility] [address] [place] [address] Dr. Evangelist Chicas Urea nitrogen [Mass/Vol] 29.0 mg/dL Critically high 7.0-18.0 [facility] Comment on above: Performed By: #### D DIM #### [facility] [address] [place] [address] Dr. Evangelist Chicas Urea nitrogen/Creatinin e [Mass ratio] 34.1 mg/mg Normal [facility] Comment on above: Performed By: #### D DIM #### [facility] [address] [place] [address] Dr. Evangelist Chicas CBC AUTO DIFFon 11-12-2022 BASO # 0.0 103/ul Normal 0.0-0.1 [facility] Comment on above: Performed By: #### C BC #### [facility] [address] [place] [address] Dr. Evangelist Chicas Basophils/100 WBC (Bld) 0.1 % Critically low 0.2-2.0 [facility] Comment on above: Performed By: #### C BC #### [facility] [address] [place] [address] Dr. Evangelist Chicas EO # 0.0 103/ul Normal 0.0-0.7 [facility] Comment on above: Performed By: #### C BC #### [facility] [address] [place] [address] Dr. Evangelist Chicas Eosinophils/100 WBC (Bld) 0.0 % Critically low 0.9-7.0 [facility] Comment on above: Performed By: #### C BC #### [facility] [address] [place] [address] Dr. Evangelist Chicas Erythrocyte distribution width (RBC) [Ratio] 12.8 % Normal 11.0-15.0 [facility] Comment on above: Performed By: #### C BC #### [facility] [address] [place] [address] Dr. Evangelist Chicas Hematocrit (Bld) [Volume fraction] 41.5 % Normal 36.0-48.0 [facility] Comment on above: Performed By: #### C BC #### [facility] [address] [place] [address] Dr. Evangelist Chicas Hemoglobin (Bld) [Mass/Vol] 13.0 g/dL Normal 12.0-16.0 [facility] Comment on above: Performed By: #### C BC #### [facility] [address] [place] [address] Dr. Evangelist Chicas IG # 0.04 10e3/ul Critically high 0.00-0.03 [facility] Comment on above: Performed By: #### C BC #### [facility] [address] [place] [address] Dr. Evangeilst Chicas IG % 0.3 % Normal 0.0-0.5 [facility] Comment on above: Performed By: #### C BC #### [facility] [address] [place] [address] Dr. Evangelist Chicas LYMPH # 0.5 103/ul Critically low 1.2-3.8 [facility] Comment on above: Performed By: #### C BC #### [facility] [address] [place] [address] Dr. Evangelist Chicas Lymphocytes/100 WBC (Bld) 3.7 % Critically low 20.5-60.0 [facility] Comment on above: Performed By: #### C BC #### [facility] [address] [place] [address] Dr. Evangelist Chicas MANUAL DIFF REQ NO Normal [facility] Comment on above: Performed By: #### C BC #### [facility] [address] [place] [address] Dr. Evangelist Chicas MCH (RBC) [Entitic mass] 29.5 pg Normal 26.7-34.0 [facility] Comment on above: Performed By: #### C BC #### [facility] [address] [place] [address] Dr. Evangelist Chicas MCHC (RBC) [Mass/Vol] 31.3 g/dL Normal 29.9-35.2 [facility] Comment on above: Performed By: #### C BC #### [facility] [address] [address] [address] Evangelist Chicas MCV (RBC) [Entitic vol] 94.3 fL Normal 81.0-99.0 [facility] Comment on above: Performed By: #### C BC #### [facility] [address] [address] [address] Evangelist Chicas MONO # 0.2 103/ul Critically low 0.3-0.8 [facility] Comment on above: Performed By: #### C BC #### [facility] [address] [place] [address] Dr. Evangelist Chicas Monocytes/100 WBC (Bld) 1.3 % Critically low 1.7-12.0 [facility] Comment on above: Performed By: #### C BC #### [facility] [address] [place] [address] Dr. Evangelist Chicas NEUT # 12.4 103/ul Critically high 1.4-6.5 [facility] Comment on above: Performed By: #### C BC #### [facility] [address] [place] [address] Dr. Evangelist Chicas Neutrophils/100 WBC (Bld) 94.6 % Critically high 43.0-75.0 [facility] Comment on above: Performed By: #### C BC #### [facility] [address] [place] [address] Dr. Evangelist Chicas Platelet mean volume (Bld) [Entitic vol] 9.9 fL Normal 9.5-13.5 [facility] Comment on above: Performed By: #### C BC #### [facility] [address] [place] [address] Dr. Evangelist Chicas PLT 189 103/ul Normal 150-450 [facility] Comment on above: Performed By: #### C BC #### [facility] [address] [place] [address] Dr. Evangelist Chicas RBC 4.40 106/ul Normal 4.20-5.40 [facility] Comment on above: Performed By: #### C BC #### [facility] [address] [place] [address] [id number] [address] Evangelist Chicas WBC 13.1 103/ul Critically high 4.0-11.0 [facility] Comment on above: Performed By: #### C #### [facility] [address] [place], [place] [address] Dr. Evangelist Chicas ECHOCARDIO M/2D COMPLETEon 0 11-12-2022 ECHOCARDIO M/2D COMPLETE Patient: LAWRENCE HARRISON Exam Date: 11/12/2022 : 1965 Gender:F Ordering : DR MANE LEE . Admission #: [id number] Family : DR VAMSHI MORGAN . Order #: [id number] CLICK HERE TO VIEW EXAM ECHOCARDIOGRAM REPORT [...] M.D. on 11/12/2022 at 13:56 Normal [facility] PROF CHEM 8 (BAS METB)on Anion gap [Moles/Vol] 10.2 mmol/L Normal [facility] Comment on above: Performed By: #### B MP #### [facility] [address] [place] [address] Dr. Evangelist Chicas Calcium [Mass/Vol] 9.2 mg/dL Normal 8.5-10.1 [facility] Comment on above: Performed By: #### B MP #### [facility] [address] [place] [address] Dr. Evangelist Chicas Chloride [Moles/Vol] 99 mmol/L Normal 98-107 [facility] Comment on above: Performed By: #### B MP #### [facility] [address] [place] [address] Dr. Evangelist Chicas CO2 [Moles/Vol] 31.5 mmol/L Normal 21.0-32.0 [facility] Comment on above: Performed By: #### B MP #### [facility] [address] [place] [address] Dr. Evangelist Chicas Creatinine [Mass/Vol] 0.87 mg/dL Normal 0.55-1.02 [facility] Comment on above: Performed By: #### B MP #### [facility] [address] [place] [address] Dr. Evangelist Chicas EGFR-AF GHANAIAN >60 Normal >=60 [facility] Comment on above: Performed By: #### B MP #### [facility] [address] [place] [address] Dr. Evangelist Chicas EGFR-NON AF GHANAIAN >60 Normal >=60 [facility] Comment on above: Performed By: #### B MP #### [facility] [address] [place] [address] Dr. Evangelist Chicas Glucose [Mass/Vol] 168 mg/dL Critically high 74-106 [facility] Comment on above: Performed By: #### B MP #### [facility] [address] [place] [address] Dr. Evangelist Chicas Potassium [Moles/Vol] 3.7 mmol/L Normal 3.5-5.1 [facility] Comment on above: Performed By: #### B MP #### [facility] [address] [place] [address] Dr. Evangelist Chicas Sodium [Moles/Vol] 137 mmol/L Normal 136-145 [facility] Comment on above: Performed By: #### B MP #### [facility] [address] [place] [address] Dr. Evangelist Chicas Urea nitrogen [Mass/Vol] 28.0 mg/dL Critically high 7.0-18.0 [facility] Comment on above: Performed By: #### B MP #### [facility] [address] [place] [address] Dr. Evangelist Chicas Urea nitrogen/Creatinin e [Mass ratio] 32.2 mg/mg Normal [facility] Comment on above: Performed By: #### B MP #### [facility] [address] [place] [address] Dr. Evangelist Chicas CBC AUTO DIFFon 11-11-2022 BASO # 0.0 103/ul Normal 0.0-0.1 [facility] Comment on above: Performed By: #### C BC #### [facility] [address] [place] [address] Dr. Evangelist Chicas Basophils/100 WBC (Bld) 0.2 % Normal 0.2-2.0 [facility] Comment on above: Performed By: #### C BC #### [facility] [address] [place] [address] Dr. Evangelist Chicas EO # 0.0 103/ul Normal 0.0-0.7 [facility] Comment on above: Performed By: #### C BC #### [facility] [address] [place] [address] Dr. Evangelist Chicas Eosinophils/100 WBC (Bld) 0.0 % Critically low 0.9-7.0 [facility] Comment on above: Performed By: #### C BC #### [facility] [address] [place] [address] Dr. Evangelist Chicas Erythrocyte distribution width (RBC) [Ratio] 12.7 % Normal 11.0-15.0 [facility] Comment on above: Performed By: #### C BC #### [facility] [address] [address] [address] Evangelist Chicas Hematocrit (Bld) [Volume fraction] 41.7 % Normal 36.0-48.0 [facility] Comment on above: Performed By: #### C BC #### [facility] [address] [place] [address] Dr. Evangelist Chicas Hemoglobin (Bld) [Mass/Vol] 13.0 g/dL Normal 12.0-16.0 [facility] Comment on above: Performed By: #### C BC #### [facility] [address] [place] [address] Dr. Evangelist Chicas IG # 0.03 10e3/ul Normal 0.00-0.03 [facility] Comment on above: Performed By: #### C BC #### [facility] [address] [place] [address] Dr. Evangelist Chicas IG % 0.5 % Normal 0.0-0.5 [facility] Comment on above: Performed By: #### C BC #### [facility] [address] [place] [address] Dr. Evangelist Chicas LYMPH # 0.4 103/ul Critically low 1.2-3.8 [facility] Comment on above: Performed By: #### C BC #### [facility] [address] [place] [address] Dr. Evangelist Chicas Lymphocytes/100 WBC (Bld) 5.8 % Critically low 20.5-60.0 [facility] Comment on above: Performed By: #### C BC #### [facility] [address] [place] [address] Dr. Evangelist Chicas MANUAL DIFF REQ NO Normal [facility] Comment on above: Performed By: #### C BC #### [facility] [address] [place] [address] Dr. Evangelist Chicas MCH (RBC) [Entitic mass] 29.3 pg Normal 26.7-34.0 [facility] Comment on above: Performed By: #### C BC #### [facility] [address] [address] [address] Evangelist Chicas MCHC (RBC) [Mass/Vol] 31.2 g/dL Normal 29.9-35.2 [facility] Comment on above: Performed By: #### C BC #### [facility] [address] [address] [address] Evangelist Chicas MCV (RBC) [Entitic vol] 93.9 fL Normal 81.0-99.0 [facility] Comment on above: Performed By: #### C BC #### [facility] [address] [place] [address] Dr. Evangelist Chicas MONO # 0.0 103/ul Critically low 0.3-0.8 [facility] Comment on above: Performed By: #### C BC #### [facility] [address] [place] [address] Dr. Evangelist Chicas Monocytes/100 WBC (Bld) 0.6 % Critically low 1.7-12.0 [facility] Comment on above: Performed By: #### C BC #### [facility] [address] [place] [address] Dr. Evangelist Chicas NEUT # 6.0 103/ul Normal 1.4-6.5 [facility] Comment on above: Performed By: #### C BC #### [facility] [address] [place] [address] Dr. Evangelist Chicas Neutrophils/100 WBC (Bld) 92.9 % Critically high 43.0-75.0 [facility] Comment on above: Performed By: #### C BC #### [facility] [address] [place] [address] Dr. Evangelist Chicas Platelet mean volume (Bld) [Entitic vol] 10.8 fL Normal 9.5-13.5 [facility] Comment on above: Performed By: #### C BC #### [facility] [address] [place] [address] Dr. Evangelist Chicas PLT 141 103/ul Critically low 150-450 [facility] Comment on above: Performed By: #### C BC #### [facility] [address] [address] [address] Evangelist Chicas RBC 4.44 106/ul Normal 4.20-5.40 [facility] Comment on above: Performed By: #### C BC #### [facility] [address] [address] [address] Evangelist Chicas WBC 6.4 103/ul Normal 4.0-11.0 [facility] Comment on above: Performed By: #### C BC #### [facility] [address] [place] [address] Dr. Evangelist Chicas PROF CHEM 8 (BAS METB)on Anion gap [Moles/Vol] 7.5 mmol/L Normal [facility] Comment on above: Performed By: #### B MP #### [facility] [address] [place] [address] Dr. Evangelist Chicas Calcium [Mass/Vol] 8.9 mg/dL Normal 8.5-10.1 [facility] Comment on above: Performed By: #### B MP #### [facility] [address] [place] [address] Dr. Evangelist Chicas Chloride [Moles/Vol] 100 mmol/L Normal 98-107 [facility] Comment on above: Performed By: #### B MP #### [facility] [address] [place] [address] Dr. Evangelist Chicas CO2 [Moles/Vol] 33.9 mmol/L Critically high 21.0-32.0 [facility] Comment on above: Performed By: #### B MP #### [facility] [address] [place] [address] Dr. Evangelist Chicas Creatinine [Mass/Vol] 0.65 mg/dL Normal 0.55-1.02 [facility] Comment on above: Performed By: #### B MP #### [facility] [address] [place] [address] Dr. Evangelist Chicas EGFR-AF GHANAIAN >60 Normal >=60 [facility] Comment on above: Performed By: #### B MP #### [facility] [address] [address] [address] Evangelist Chicas EGFR-NON AF GHANAIAN >60 Normal >=60 [facility] Comment on above: Performed By: #### B MP #### [facility] [address] [address] [address] Evangelist Chicas Glucose [Mass/Vol] 152 mg/dL Critically high 74-106 [facility] Comment on above: Performed By: #### B MP #### [facility] [address] [address] [address] Evangelist Chicas Potassium [Moles/Vol] 4.4 mmol/L Normal 3.5-5.1 [facility] Comment on above: Performed By: #### B MP #### [facility] [address] [address] [address] Evangelist Chicas Sodium [Moles/Vol] 137 mmol/L Normal 136-145 [facility] Comment on above: Performed By: #### B MP #### [facility] [address] [address] [address] Evangelist Chicas Urea nitrogen [Mass/Vol] 16.0 mg/dL Normal 7.0-18.0 [facility] Comment on above: Performed By: #### B MP #### [facility] [address] [address] [address] Evangelist Chicas Urea nitrogen/Creatinin e [Mass ratio] 24.6 mg/mg Normal [facility] Comment on above: Performed By: #### B MP #### [facility] [address] [place] [address] Dr. Evangelist Chicas BNPon 11-10-2022 Natriuretic peptide B (Bld) [Mass/Vol] 330.0 pg/mL Normal <=900.0 [facility] Comment on above: Performed By: #### B MP #### [facility] [address] [place] [address] Dr. Evangelist Chicas CARDIAC LIS ADMITon 023 CK [Catalytic activity/Vol] 40 U/L Normal 26-192 [facility] Comment on above: Performed By: #### D DIM #### [facility] [address] [place] [address] Dr. Evangelist Chicas CK.MB [Mass/Vol] 1.06 ng/mL Normal <=3.60 [facility] Comment on above: Performed By: #### D DIM #### [facility] [address] [place] [address] Dr. Evangelist Chicas HSTROP 21.6 pg/mL Normal 4.0-51.3 [facility] Comment on above: Result Comment: CUT- OFF POINTS HAVE BEEN ESTABLISHED BASED ON THE FOURTH UNIVERSAL DEFINITIONS OF MYOCARDIAL INFARCTION. THE UPPER REFERENCE LIMIT (URL) OF TROPONIN, DEFINED THE 99TH PERCENTILE OF cTnI DISTRIBUTION IN A REFERENCE POPULATION, HAS BEEN CONFIRMED THE DECISION THRESHOLD FOR [place] DIAGNOSIS. Performed By: #### D DIM #### [facility] [address] [place] [address] Dr. Evangelist Chicas VANNA 41 ng/mL Normal 9-82 [facility] Comment on above: Performed By: #### D DIM #### [facility] [address] [place] [address] Dr. Evangelist Chicas CBC AUTO DIFFon 11-10-2022 BASO # 0.1 103/ul Normal 0.0-0.1 [facility] Comment on above: Performed By: #### B MP #### [facility] [address] [place] [address] Dr. Evangelist Chicas Basophils/100 WBC (Bld) 0.7 % Normal 0.2-2.0 [facility] Comment on above: Performed By: #### B MP #### [facility] [address] [place] [address] Dr. Evangelist Chicas EO # 0.1 103/ul Normal 0.0-0.7 [facility] Comment on above: Performed By: #### B MP #### [facility] [address] [place] [address] Dr. Evangelist Chicas Eosinophils/100 WBC (Bld) 1.1 % Normal 0.9-7.0 [facility] Comment on above: Performed By: #### B MP #### [facility] [address] [place] [address] Dr. Evangelist Chicas Erythrocyte distribution width (RBC) [Ratio] 12.8 % Normal 11.0-15.0 [facility] Comment on above: Performed By: #### B MP #### [facility] [address] [place] [address] Dr. Evangelist Chicas Hematocrit (Bld) [Volume fraction] 41.1 % Normal 36.0-48.0 [facility] Comment on above: Performed By: #### B MP #### [facility] [address] [place] [address] Dr. Evangelist Chicas Hemoglobin (Bld) [Mass/Vol] 13.2 g/dL Normal 12.0-16.0 [facility] Comment on above: Performed By: #### B MP #### [facility] [address] [place] [address] Dr. Evangelist Chicas IG # 0.02 10e3/ul Normal 0.00-0.03 [facility] Comment on above: Performed By: #### B MP #### [facility] [address] [place] [address] Dr. Evangelist Chicas IG % 0.3 % Normal 0.0-0.5 [facility] Comment on above: Performed By: #### B MP #### [facility] [address] [place] [address] Dr. Evangelist Chicas LYMPH # 0.7 103/ul Critically low 1.2-3.8 [facility] Comment on above: Performed By: #### B MP #### [facility] [address] [place] [address] Dr. Evangelist Chicas Lymphocytes/100 WBC (Bld) 9.5 % Critically low 20.5-60.0 [facility] Comment on above: Performed By: #### B MP #### [facility] [address] [place] [address] Dr. Evangelist Chicas MANUAL DIFF REQ NO Normal The [facility] Comment on above: Performed By: #### B MP #### [facility] [address] [place] [address] Dr. Evangelist Chicas MCH (RBC) [Entitic mass] 29.6 pg Normal 26.7-34.0 [facility] Comment on above: Performed By: #### B MP #### [facility] [address] [place] [address] Dr. Evangelist Chicas MCHC (RBC) [Mass/Vol] 32.1 g/dL Normal 29.9-35.2 [facility] Comment on above: Performed By: #### B MP #### [facility] [address] [place] [address] Dr. Evangelist Chicas MCV (RBC) [Entitic vol] 92.2 fL Normal 81.0-99.0 [facility] Comment on above: Performed By: #### B MP #### [facility] [address] [place] [address] Dr. Evangelist Chicas MONO # 0.6 103/ul Normal 0.3-0.8 [facility] Comment on above: Performed By: #### B MP #### [facility] [address] [place] [address] Dr. Evangelist Chicas Monocytes/100 WBC (Bld) 8.1 % Normal 1.7-12.0 [facility] Comment on above: Performed By: #### B MP #### [facility] [address] [place] [address] Dr. Evangelist Chicas NEUT # 6.1 103/ul Normal 1.4-6.5 [facility] Comment on above: Performed By: #### B MP #### [facility] [address] [place] [address] Dr. Evangelist Chicas Neutrophils/100 WBC (Bld) 80.3 % Critically high 43.0-75.0 [facility] Comment on above: Performed By: #### B MP #### [facility] [address] [place] [address] Dr. Evangelist Chicas Platelet mean volume (Bld) [Entitic vol] 9.8 fL Normal 9.5-13.5 [facility] Comment on above: Performed By: #### B MP #### [facility] [address] [place] [address] Dr. Evangelist Chicas PLT 180 103/ul Normal 150-450 [facility] Comment on above: Performed By: #### B MP #### [facility] [address] [place], [place] [address] Dr. Evangelist Chicas RBC 4.46 106/ul Normal 4.20-5.40 [facility] Comment on above: Performed By: #### B MP #### [facility] [address] [place], [place] [address] Dr. Evangelist Chicas WBC 7.6 103/ul Normal 4.0-11.0 [facility] Comment on above: Performed By: #### B MP #### [facility] [address] [place], [place] [address] Dr. Evangelist Chicas CTA CHEST WO W [...] DEL ENRIQUE Date: 2022-11-10 17:30 Normal [facility] Covid-19 PCR (CVDTB)on SARS-CoV-2 (COVID-19) RNA SHENG+probe Ql (Unsp spec) Not detected Normal NOT DETECTED [facility] Comment on above: Result Comment: When [...] for this test is supported by the [employer] and Human Service's declaration that [...] used). Performed By: #### B MP #### [facility] [address] [place] [address] Dr. Evangelist Chicas D-DIMERon 11-10-2022 D-DIMER 0.63 mg/L FEU Critically high <=0.59 The [facility] Comment on above: Performed By: #### D DIM #### [facility] [address] [place] [address] Dr. Evangelist Chicas D-DIMER COMMENTS SEE BELOW Normal The [facility] Comment on above: Result Comment: Incr [...] hospitalization. Performed By: #### D DIM #### [facility] [address] [place] [address] Dr. Evangelist Chicas ER URINE PROFILEon 3 Bilirubin Ql (U) Negative Normal NEGATIVE [facility] Comment on above: Performed By: #### U MICRO, ERUR #### [facility] [address] [place] [address] Dr. Evangelist Chicas Clarity (U) CLEAR Normal CLEAR [facility] Comment on above: Performed By: #### U MICRO, ERUR #### [facility] [address] [place] [address] Dr. Evangelist Chicas Color (U) LT. YELLOW Normal YELLOW [facility] Comment on above: Performed By: #### U MICRO, ERUR #### [facility] [address] [place] [address] Dr. Evangelist Chicas ERUAHD A micrscopic examination will be performed if indicated. Normal [facility] Comment on above: Performed By: #### U MICRO, ERUR #### [facility] [address] [place] [address] Dr. Evangelist Chicas Glucose Ql (U) Negative Normal NEGATIVE [facility] Comment on above: Performed By: #### U MICRO, ERUR #### [facility] [address] [place] [address] Dr. Evangelist Chicas Hemoglobin Ql (U) TRACE-INTACT Abnormal NEGATIVE [facility] Comment on above: Performed By: #### U MICRO, ERUR #### [facility] [address] [place] [address] Dr. Evangelist Chicas Ketones Ql (U) Negative Normal NEGATIVE [facility] Comment on above: Performed By: #### U MICRO, ERUR #### [facility] [address] [place] [address] Dr. Evangelist Chicas LEUKOCYTES Negative Normal NEGATIVE [facility] Comment on above: Performed By: #### U MICRO, ERUR #### [facility] [address] [place] [address] Dr. Evangelist Chicas Nitrite Ql (U) Negative Normal NEGATIVE [facility] Comment on above: Performed By: #### U MICRO, ERUR #### [facility] [address] [place] [address] Dr. Evangelist Chicas pH (U) 6.0 [pH] Normal 5-9 [facility] Comment on above: Performed By: #### U MICRO, ERUR #### [facility] [address] [place] [address] Dr. Evangelist Chicas SPEC GRAVITY 1.010 Normal 1.005-<=1.025 [facility] Comment on above: Performed By: #### U MICRO, ERUR #### [facility] [address] [place] [address] Dr. Evangelist Chicas UA PROTEIN Negative Normal NEGATIVE/ TRACE [facility] Comment on above: Performed By: #### U MICRO, ERUR #### [facility] [address] [place] [address] Dr. Evangelist Chicas UR MICRO IND INDICATED Normal [facility] Comment on above: Performed By: #### U MICRO, ERUR #### [facility] [address] [place] [address] Dr. Evangelist Chicas Urobilinogen Qn (U) 0.2 {Amalia'U}/dL Normal 0.2 - 1.0 [facility] Comment on above: Performed By: #### U MICRO, ERUR #### [facility] [address] [place] [address] Dr. Evangelist Chicas INFLUENZA A AND B AGon 11-10 [facility] SEE BELOW Normal [facility] Comment on above: Result Comment: Nega tive for Flu A protein angiten. Infection due to Flu A cannot be ruled out. Flu A angiten in the sample may be below the detection limit of the test. Performed By: #### D DIM #### [facility] [address] [place] [address] Dr. Evangelist Chicas INFLUBNEGH SEE BELOW Normal [facility] Comment on above: Result Comment: Nega tive for Flu B protein antigen. Infection due to Flu B cannot be ruled out. Flu B antigen in the sample may be below the detection limit of the test. Performed By: #### D DIM #### [facility] [address] [place] [address] Dr. Evangelist Chicas INFLUENZA A AG Negative Normal NEGATIVE SEE COMMENT [facility] Comment on above: Performed By: #### D DIM #### [facility] [address] [place] [address] [address] Evangelist Chicas INFLUENZA B AG Negative Normal NEGATIVE SEE COMMENT [facility] Comment on above: Performed By: #### D DIM #### [facility] [address] [place] [address] [address] Evangelist Chicas PROF 14(COMP METB)on 023 Albumin [Mass/Vol] 3.1 g/dL Critically low 3.4-5.[address] [facility] Comment on above: Performed By: #### B MP #### [facility] [address] [place] [address] Dr. Evangelist Chicas Albumin/Globulin [Mass ratio] 0.7 {ratio} Normal [facility] Comment on above: Performed By: #### B MP #### [facility] [address] [place] [address] Dr. Evangelist Chicas ALP [Catalytic activity/Vol] 108 U/L Normal 46-116 [facility] Comment on above: Performed By: #### B MP #### [facility] [address] [place] [address] Dr. Evangelist Chicas ALT [Catalytic activity/Vol] 20 U/L Normal 14-59 [facility] Comment on above: Performed By: #### B MP #### [facility] [address] [place] [address] Dr. Evangelist Chicas Anion gap [Moles/Vol] 6.0 mmol/L Normal [facility] Comment on above: Performed By: #### B MP #### [facility] [address] [place] [address] Dr. Evangelist Chicas AST [Catalytic activity/Vol] 16 U/L Normal 15-37 [facility] Comment on above: Performed By: #### B MP #### [facility] [address] [place] [address] Dr. Evangelist Chicas Bilirubin [Mass/Vol] 0.6 mg/dL Normal 0.2-1.0 [facility] Comment on above: Performed By: #### B MP #### [facility] [address] [place] [address] [address] Evangelist Chicas Calcium [Mass/Vol] 9.1 mg/dL Normal 8.5-10.1 [facility] Comment on above: Performed By: #### B MP #### [facility] [address] [place] [address] [address] Evangelist Chicas Chloride [Moles/Vol] 97 mmol/L Critically low 98-107 [facility] Comment on above: Performed By: #### B MP #### [facility] [address] [place] [address] Dr. Evangelist Chicas CO2 [Moles/Vol] 36.9 mmol/L Critically high 21.0-32.0 [facility] Comment on above: Performed By: #### B MP #### [facility] [address] [place] [address] Dr. Evangelist Chicas Creatinine [Mass/Vol] 0.71 mg/dL Normal 0.55-1.02 [facility] Comment on above: Performed By: #### B MP #### [facility] [address] [place] [address] Dr. Evangelist Chicas EGFR-AF GHANAIAN >60 Normal >=60 [facility] Comment on above: Performed By: #### B MP #### [facility] [address] [place] [address] Dr. Evangelist Chicas EGFR-NON AF GHANAIAN >60 Normal >=60 [facility] Comment on above: Performed By: #### B MP #### [facility] [address] [place] [address] [address] Evangelist Chicas Globulin (S) [Mass/Vol] 4.4 g/dL Normal [facility] Comment on above: Performed By: #### B MP #### [facility] [address] [place] [address] Dr. Evangelist Chicas Glucose [Mass/Vol] 124 mg/dL Critically high 74-106 [facility] Comment on above: Performed By: #### B MP #### [facility] [address] [place] [address] Dr. Evangelist Chicas Potassium [Moles/Vol] 3.9 mmol/L Normal 3.5-5.1 [facility] Comment on above: Performed By: #### B MP #### [facility] [address] [place] [address] Dr. Evangelist Chicas Protein [Mass/Vol] 7.5 g/dL Normal 6.4-8.2 [facility] Comment on above: Performed By: #### B MP #### [facility] [address] [place] [address] Dr. Evangelist Chicas Sodium [Moles/Vol] 136 mmol/L Normal 136-145 [facility] Comment on above: Performed By: #### B MP #### [facility] [address] [place] [address] Dr. Evangelist Chicas Urea nitrogen [Mass/Vol] 17.0 mg/dL Normal 7.0-18.0 [facility] Comment on above: Performed By: #### B MP #### [facility] [address] [place] [address] Dr. Evangelist Chicas Urea nitrogen/Creatinin e [Mass ratio] 23.9 mg/mg Normal [facility] Comment on above: Performed By: #### B MP #### [facility] [address] [place] [address] Dr. Evangelist Chicas URINE MICROSCOPIC ONLYon BACTERIA NONE SEEN Normal NONE SEEN [facility] Comment on above: Performed By: #### U MICRO, ERUR #### [facility] [address] [place] [address] Dr. Evangelist Chicas Bacteria identified Cx Nom (U) NOT INDICATED Normal [facility] Comment on above: Performed By: #### U MICRO, ERUR #### [facility] [address] [place] [address] Dr. Evangelist Chicas CAST NONE SEEN Normal NONE SEEN [facility] Comment on above: Performed By: #### U MICRO, ERUR #### [facility] [address] [place] [address] Dr. Evangelist Chicas Crystals LM Nom (Urine sed) NONE SEEN Normal NONE SEEN [facility] Comment on above: Performed By: #### U MICRO, ERUR #### [facility] [address] [place] [address] [address] Evangelist Chicas Epithelial cells LM Ql (Urine sed) FEW Abnormal NONE SEEN /RARE [facility] Comment on above: Performed By: #### U MICRO, ERUR #### [facility] [address] [place] [address] [address] Evangelist Chicas MUCOUS NONE SEEN Normal NONE SEEN [facility] Comment on above: Performed By: #### U MICRO, ERUR #### [facility] [address] [place] [address] [address] Evangelist Chicas RBC 0-2 Normal 0-2 [facility] Comment on above: Performed By: #### U MICRO, ERUR #### [facility] [address] [place] [address] Dr. Evangelist Chicas WBC NONE SEEN Normal NONE SEEN [facility] Comment on above: Performed By: #### U MICRO, ERUR #### [facility] [address] [place] [address] Dr. Evangelist Chicas XR CHEST 1 Von [...] JH JAIN Date: 2022-11-10 15:24 Normal [facility] Vital Signs Date Time Vital Sign Value Performing Clinician Faci lity 01-10-2025 10:38-0500 Body height 162.6 cm Mane Lee MD Work Phone: [facility] 01-10-2025 10:38-0500 Body mass index (BMI) [Ratio] 48.58 kg/m2 Mane Lee MD Work Phone: [facility] 01-10-2025 10:38-0500 Body temperature 97.5 [degF] Mane Lee MD Work Phone: [facility] 01-10-2025 10:38-0500 Body weight 128.37 kg Mane Lee MD Work Phone: [facility] 01-10-2025 10:38-0500 Diastolic blood pressure 68 mm[Hg] Mane Lee MD Work Phone: [facility] 01-10-2025 10:38-0500 Heart rate 96 /min Mane Lee MD Work Phone: [facility] 01-10-2025 10:38-0500 Respiratory rate 22 /min Mane Lee MD Work Phone: [facility] 01-10-2025 10:38-0500 SaO2% (BldA) [Mass fraction] 98 % Mane Lee MD Work Phone: [facility] 01-10-2025 10:38-0500 Systolic blood pressure 154 mm[Hg] Mane Lee MD Work Phone: [facility] 08-04-2024 11:22-0400 Body height 160 cm Mane Lee MD Work Phone: [facility] 08-04-2024 11:22-0400 Body mass index (BMI) [Ratio] 47.12 kg/m2 Mane Lee MD Work Phone: [facility] 08-04-2024 11:22-0400 Body temperature 97.3 [degF] Mane Lee MD Work Phone: [facility] 08-04-2024 11:22-0400 Body weight 120.66 kg Mane Lee MD Work Phone: [facility] 08-04-2024 11:22-0400 Diastolic blood pressure 74 mm[Hg] Mane Lee MD Work Phone: [facility] 08-04-2024 11:22-0400 Heart rate 99 /min Mane Lee MD Work Phone: [facility] 08-04-2024 11:22-0400 Respiratory rate 22 /min Mane Lee MD Work Phone: [facility] 08-04-2024 11:22-0400 SaO2% (BldA) [Mass fraction] 96 % Mane Lee MD Work Phone: [facility] 08-04-2024 11:22-0400 Systolic blood pressure 140 mm[Hg] Mane Lee MD Work Phone: [facility] 07-01-2024 10:31-0400 Body height 160 cm Mane Lee MD Work Phone: [facility] 07-01-2024 10:31-0400 Body mass index (BMI) [Ratio] 47.65 kg/m2 Mane Lee MD Work Phone: [facility] 07-01-2024 10:31-0400 Body temperature 97.11 [degF] Mane Lee MD Work Phone: [facility] 07-01-2024 10:31-0400 Body weight 122.02 kg Mane Lee MD Work Phone: [facility] 07-01-2024 10:31-0400 Diastolic blood pressure 82 mm[Hg] Mane Lee MD Work Phone: [facility] 07-01-2024 10:31-0400 Heart rate 90 /min Mane Lee MD Work Phone: [facility] 07-01-2024 10:31-0400 Respiratory rate 22 /min Mane Lee MD Work Phone: [facility] 07-01-2024 10:31-0400 SaO2% (BldA) [Mass fraction] 97 % Mane Lee MD Work Phone: [facility] 07-01-2024 10:31-0400 Systolic blood pressure 130 mm[Hg] Mane Lee MD Work Phone: [facility] 12-23-2023 13:24-0500 Body height 160 cm Mane Lee MD Work Phone: [facility] 12-23-2023 13:24-0500 Body mass index (BMI) [Ratio] 49.25 kg/m2 Mane Lee MD Work Phone: [facility] 12-23-2023 13:24-0500 Body temperature 97.3 [degF] Mane Lee MD Work Phone: [facility] 12-23-2023 13:24-0500 Body weight 126.1 kg Mane Lee MD Work Phone: [facility] 12-23-2023 13:24-0500 Diastolic blood pressure 80 mm[Hg] Mane Lee MD Work Phone: [facility] 12-23-2023 13:24-0500 Heart rate 96 /min Mane Lee MD Work Phone: [facility] 12-23-2023 13:24-0500 SaO2% (BldA) [Mass fraction] 96 % Mane Lee MD Work Phone: [facility] 12-23-2023 13:24-0500 Systolic blood pressure 140 mm[Hg] Mane Lee MD Work Phone: [facility] Healthcare Encounters Encounter Date Encounter Type Care Provider Facility Start: 01-12-2025 End: 01-12-2025 Clinisync Result Encounter Mane Lee MD Work Phone: [facility] External Department Unsolicited Start: 01-12-2025 End: 01-12-2025 Clinisync Result Encounter Mane Lee MD Work Phone: [facility] External Department Unsolicited Start: 01-10-2025 End: 01-10-2025 Bamboo flowsheet Mane Lee MD Work Phone: [facility] Start: 01-10-2025 End: 01-10-2025 Bamboo flowsheet Mane Lee MD Work Phone: [facility] Start: 01-10-2025 End: 01-10-2025 Patient encounter procedure Mane Lee MD Work Phone: [facility] Healthcare Start: 01-10-2025 End: 01-10-2025 Periodic preventive med est patient 40-64yrs Mane Lee MD Work Phone: [facility] Comment on above: Annual physical exam (Primary Dx); Essential hypertension, benign (CMS/HCC); Chronic obstructive pulmonary disease, unspecified COPD type (CMS/HCC); Class 3 severe obesity due to excess calories with serious comorbidity and body mass index (BMI) of 45.0 to 49.9 in adult (CMS/HCC); Cigarette smoker Start: 01-10-2025 End: 01-10-2025 ambulatory MANE LEE Not Available Start: 08-04-2024 End: 08-04-2024 Bamboo flowsheet Mane Lee MD Work Phone: [facility] Start: 08-04-2024 End: 08-04-2024 Bamboo flowsheet Mane Lee MD Work Phone: [facility] Start: 08-04-2024 End: 08-04-2024 ambulatory MANE LEE Not Available Start: 08-04-2024 End: 08-04-2024 Office outpatient visit 15 minutes Mane Lee MD Work Phone: [facility] Comment on above: Acute bronchitis due to other specified organisms (Primary Dx); Essential hypertension, benign (CMS/HCC); Spinal stenosis, lumbar region, without neurogenic claudication; Vitamin D deficiency; Degeneration of lumbar intervertebral disc; Lower extremity edema; Moderate COPD (chronic obstructive pulmonary disease) (CMS/HCC) Start: 07-01-2024 End: 07-01-2024 Bamboo flowsheet Mane Lee MD Work Phone: [facility] Start: 07-01-2024 End: 07-01-2024 Bamboo flowsheet Mane Lee MD Work Phone: [facility] Start: 07-01-2024 End: 07-01-2024 Office outpatient visit 25 minutes Mane Lee MD Work Phone: [facility] Comment on above: Essential hypertensi on, benign (CMS/HCC) (Primary Dx); Leg edema; Chronic obstructive pulmonary disease, unspecified COPD type (CMS/HCC); Degenerative lumbar spinal stenosis; Morbid obesity due to excess calories (CMS/HCC) Start: 07-01-2024 End: 07-01-2024 ambulatory MANE LEE Not Available Start: 06-02-2024 End: 06-02-2024 ambulatory MANE LEE Not Available Start: 04-16-2024 End: 04-16-2024 ambulatory MANE LEE Not Available Start: 03-22-2024 End: 03-23-2024 [facility] Start: 01-26-2024 End: 01-27-2024 ambulatory Corine Frye MD Facility: [facility] Start: 01-22-2024 End: 01-22-2024 ambulatory MANE LEE Not Available Start: 12-29-2023 End: 12-30-2023 ambulatory Corine Frye MD Facility:[facility] Start: 12-23-2023 Amy Lee MD Work Phone: [facility] Start: 12-23-2023 Amy Lee MD Work Phone: [facility] Start: 12-23-2023 End: 12-23-2023 Office outpatient visit 25 minutes Mane Lee MD Work Phone: [facility] Comment on above: Essential hypertensi on, benign (CMS/HCC) (Primary Dx); Degenerative lumbar spinal stenosis; Lumbar disc herniation with radiculopathy; Leg edema; Chronic obstructive pulmonary disease, unspecified COPD type (CMS/HCC) Start: 12-10-2023 End: 12-10-2023 ambulatory Lakisha Shipman Facility:[facility] Start: 12-10-2023 End: 12-10-2023 ambulatory MD Mane Lee Work Phone: [facility] Work Phone: Start: 12-10-2023 End: 12-10-2023 Patient encounter procedure MD Mane Lee Work Phone: [facility] [place] Work Phone: Start: 08-25-2023 End: 08-26-2023 ambulatory Corine Frye MD Facility:[facility] Start: 01-29-2023 End: 01-30-[address] MANE LEE Facility:[facility] Start: 11-10-2022 End: 11-14-2022 Evaluation and management of inpatient DR MANE LEE Facility:[facility] Procedures Date Procedure Procedure Detail Performing Clinician Start: 01-12-2025 ALL CBC WITH AUTO DIFF Mane Lee MD Work Phone: Start: 06-25-2024 Mammography Mane sprague MD Work Phone: Start: 12-10-2023 X-ray of lumbar spin e, six views including bending views MD Mane Lee Work Phone: Start: 01-29-2023 Mammography Mane sprague MD Work Phone: Start: 05-20-2022 Colonoscopy Mane sprague MD Work Phone: Plan of Treatment Date Care Activity Detail Author Start: 05-20-2032 Screening for malign ant neoplasm of colon [facility] Healthcare Start: 06-25-2025 Screening for malign ant neoplasm of breast Mammogram [facility] Start: 02-14-2025 End: 02-14-2025 Patient encounter procedure 02/14/2025 11:00 AM EDT Office Visit [facility] [address] [place] [address] Mane Lee MD [address] [place] [address] [facility] Start: 01-10-2025 End: 01-10-2026 Basic metabolic 1998 panel - Serum or Plasma Basic metabolic panel Lab Routine Annual physical exam Expected: 01/10/2025 (Approximate), Expires: 01/10/2026 [facility] Comment on above: Expected: 01/10/2025 (Approximate), Expires: 01/10/2026 Start: 01-10-2025 End: 01-10-2026 CBC W Auto Differential panel - Blood CBC and differential Lab Routine Annual physical exam Expected: 01/10/2025 (Approximate), Expires: 01/10/2026 [facility] Comment on above: Expected: 01/10/2025 (Approximate), Expires: 01/10/2026 Start: 01-10-2025 End: 01-10-2026 CT Chest for screening WO contrast CT lung screening low dose Imaging Routine Cigarette smoker Expected: 01/10/2025, Expires: 01/10/2026 [facility] Comment on above: Expected: 01/10/2025 , Expires: 01/10/2026 Start: 01-10-2025 End: 01-10-2026 Hemoglobin A1c/Hemoglobin.total in Blood Hemoglobin A1c Lab Routine Annual physical exam Expected: 01/10/2025 (Approximate), Expires: 01/10/2026 [facility] Work Phone: Comment on above: Expected: 01/10/2025 (Approximate), Expires: 01/10/2026 Start: 01-10-2025 End: 01-10-2026 Hepatic function 2000 panel - Serum or Plasma Hepatic function panel Lab Routine Annual physical exam Expected: 01/10/2025 (Approximate), Expires: 01/10/2026 [facility] Comment on above: Expected: 01/10/2025 (Approximate), Expires: 01/10/2026 Start: 01-10-2025 End: 01-10-2026 Lipid 1996 panel - Serum or Plasma Lipid panel Lab Routine Annual physical exam Expected: 01/10/2025 (Approximate), Expires: 01/10/2026 [facility] Comment on above: Expected: 01/10/2025 (Approximate), Expires: 01/10/2026 Start: 01-10-2025 End: 01-10-2026 Thyrotropin [Units/volume] in Serum or Plasma TSH Lab Routine Annual physical exam Expected: 01/10/2025 (Approximate), Expires: 01/10/2026 [facility] Comment on above: Expected: 01/10/2025 (Approximate), Expires: 01/10/2026 Start: 01-10-2025 End: 01-10-2025 Patient encounter procedure [facility] Comment on above: Arrived Start: 07-11-2024 Influenza vaccination Influenza Vacc ine (#1) [facility] Start: 07-01-2024 End: 07-01-2024 Patient encounter procedure 07/01/2024 10:30 AM EDT Office Visit [facility] [address] [place] [phone] Mane Lee MD [address] [place] [phone] Arrived [facility] Comment on above: Arrived Start: 02-24-2024 End: 02-24-2024 Patient encounter procedure 02/24/2024 9:00 AM EDT Office Visit [facility] [address] [place] [phone] Mane Lee MD [address] [place] [phone] [facility] Start: 01-30-2024 Screening for malign ant neoplasm of breast Mammogram [facility] Start: 12-23-2023 End: 12-23-2023 Patient encounter procedure 12/23/2023 1:15 PM EST Office Visit [facility] [address] [place] [phone] Mane Lee MD [address] [place] [phone] Arrived [facility] Comment on above: Arrived Start: 1993 Screening for malign ant neoplasm of cervix [facility] Start: 1984 Screening for malign ant neoplasm of cervix Pap Smear [facility] Start: 1965 Screening for malign ant neoplasm of colon [facility] Immunizations Immunization Date Immunization Notes Care Provider Caesar britt 11-24-2024 influenza virus vacc ine, unspecified formulation Mane Lee MD Work Phone: [facility] 08-21-2023 influenza virus vacc ine, unspecified formulation Mane Lee MD Work Phone: [facility] Payers Date Payer Category Payer Self-pay 2023 [facility] [id number] 2023 Unknown [id number] 2022 Unknown [id number] 1963 Unknown [id number]. 593 1963 Unknown [id number] 2.840.1.109170.3.579.2. 593 1963 Unknown [id number] 2.16840.1.142051.3.579.2. 196 1963 Unknown [id number] 2.16840.1.126834.3.579.2. 196 1963 Unknown [id number] 2.840.1.981889.3.579.2. 196 1963 Unknown [id number] 2.16840.1.165751.3.579.2. 196 1963 Unknown [id number] 2.16.840.1.455456.3.579.2. 9 1963 Unknown [id number] 2.16.840.1.431295.3.579.2. 9 1963 Unknown [id number] 2.16.840.1.336158.3.579.2. 1258 1963 Unknown [id number] 2.16.840.1.325437.3.579.2. 9 1963 Unknown [id number] 2.16.840.1.816747.3.579.2. 1258 1963 Unknown [id number] 2.16.840.1.289801.3.579.2. 1259 1959 Unknown [id number] Unknown [facility] [id number] Unknown [id number]. 531 Social History Date Type Detail Facility Tobacco smoking stat [facility] Unknown if ever smoked [facility] Work Phone: Start: 1965 Sex Assigned At Female [facility] Start: 10-31-2023 Tobacco smoking stat [facility] Smokes tobacco daily [facility] History of tobacco use Cigarette Smoker [facility] Start: 10-31-2023 End: 11-26-2023 Cigarettes smoked current (pack per day) - Reported 0.5 [facility] Start: 10-31-2023 Tobacco use and exposure Smoke less tobacco non-user [facility] Start: 11-26-2023 End: 01-10-2025 Humiliation, Afraid, Rape, and Kick questionnaire [HARK] [...] Not at all [facility] (I/We) worried wheblair er (my/our) food would run out before (I/we) got money to buy more. Never true [facility] Start: 1965 Sex Assigned At Not on file [facility] History of Present illness Narrative 01-10-2025 Mane Lee MD - 01/10/2025 11:07 AM Gal Lee MD - 01/10/2025 11:06 AM Gal Lee MD - 01/10/2025 11:06 AM Gal Lee MD - 01/10/2025 11:06 AM EST Note Date & Type Note Facility 01-10-2025 History of Presen t illness Narrative Associated Problem(s): Cigarette smoker Check low dose CT chest Associated Problem(s): Essential hypertension, benign ([facility]) BP elevated today but previously controlled. Monitor PRN. Associated Problem(s): COPD (chronic obstructive pulmonary disease) ([facility]) Breathing stable and encouraged to quit smoker. Continue inhalers. Associated Problem(s): Class 3 severe obesity due to excess calories with serious comorbidity and body mass index (BMI) of 45.0 to 49.9 in adult ([facility]) Patient overweight and difficult time losing weight. Discussed proper diet and regular aerobic exercise. Recommend Weight Watchers and need to limit calories and smaller portions. Need to increase activity and regular aerobic exercise several days a week for 30 minutes at a time. Interested in adipex and warned of potential cardiac side effects. Script written for first month and will need to recheck weight in 1 month. OARRS reviewed. Continue medications as prescribed. Associated Problem(s): Annual physical exam Due for labs. Discussed proper diet and regular aerobic exercise. Need aerobic exercise 5-6 days a week for 30 minutes at a time. Smaller portions and limit total calories. Colonoscopy every 10 years. Tetanus every 10 years. Advised not to smoke. Images from the original note were not included. Subjective Patient ID: Lawrence Harrison is a 59 y.o. female who presents for Follow-up (6m ) and Back Pain (Getting bad again). Presents for annual PE. Patient stable today. Weight up 17 pounds since last visit. Previously lost weight with adipex but now gaining back. Cutting back on smoking and eating more. Not active and no regular exercise. Tries to watch diet and eat healthy. Increased fruits and vegetables. Smaller portions and limits snacking. Tries to limit total daily calories. Due for labs. Not checking BP but elevated today. Taking medication daily. Mild SOB with exertion. Down to about 2 packs a week but smoked 1 pack per day for over 40 years. Review of Systems Respiratory: Negative for cough, [...] There is no guarding or rebound. Musculoskeletal: General: No swelling or tenderness. Cervical back: Neck supple. Right lower leg: No edema. Left lower leg: No edema. Skin: Findings: No erythema or rash. Neurological: General: No focal deficit present. Mental Status: She is alert and oriented to person, place, and time. Cranial Nerves: No cranial nerve deficit. Motor: No weakness. Gait: Gait normal. Assessment/Plan Problem List Items Addressed This Visit Essential hypertension, benign (CMS/HCC) BP elevated today but previously controlled. Monitor PRN. COPD (chronic obstructive pulmonary disease) ([facility]) Breathing stable and encouraged to quit smoker. Continue inhalers. Class 3 severe obesity due to excess calories with serious comorbidity and body mass index (BMI) of 45.0 to 49.9 in adult (CMS/HCC) Patient overweight and difficult time losing weight. Discussed proper diet and regular aerobic exercise. Recommend Weight Watchers and need to limit calories and smaller portions. Need to increase activity and regular aerobic exercise several days a week for 30 minutes at a time. Interested in adipex and warned of potential cardiac side effects. Script written for first month and will need to recheck weight in 1 month. OARRS reviewed. Continue medications as prescribed. Annual physical exam - Primary Due for labs. Discussed proper diet and regular aerobic exercise. Need aerobic exercise 5-6 days a week for 30 minutes at a time. Smaller portions and limit total calories. Colonoscopy every 10 years. Tetanus every 10 years. Advised not to smoke. Relevant Orders Hemoglobin A1c Basic metabolic panel CBC and differential Hepatic function panel Lipid panel TSH Cigarette smoker Check low dose CT chest documented in this encounter [facility] History of Present illness Narrative 08-04-2024 Mane Lee MD - 08/04/2024 11:34 AM EDTMbj Lee MD - 08/04/2024 11:15 AM EDT Note Date & Type Note Facility 08-04-2024 History of Presen t illness Narrative Associated Problem(s): Acute bronchitis due to other specified organisms Take antibiotics BID for 10 days. Use prednisone for inflammation. Use sudafed or other decongestants as needed. Use Robitussin or Robitussin-DM for cough. Can use afrin for congestion but no longer than 3 days. Can use Mucinex to bring up phlegm. Use Motrin or Tylenol as needed for fever, aches, or pains. Increase fluid intake and rest. Should improve over next 5-7 days and if no better or worse call for re-evaluation. Images from the original note were not included. Subjective Patient ID: Lawrence Harrison is a 58 y.o. female who presents for Follow-up (Chest/head congestion, chills, Headach). C/o cough, congestion, and rhinorrhea x 5 days. C/o cold chills but not check temp. Severe fatigue and no energy. Frequent cough productive yellow sputum. Chest tight and SOB. PARRA and sinus pressure in forehead and cheeks along with postnasal drip. Ears plugged and popping. Sore throat and pain to swallow. Mild nausea. Multiple coworkers recently sick. Using OTC medication and mild relief. No improvement in symptoms since onset. Review of Systems Respiratory: Negative for cough, [...] Assessment/Plan Problem List Items Addressed This Visit Acute bronchitis due to other specified organisms - Primary Take antibiotics BID for 10 days. Use prednisone for inflammation. Use sudafed or other decongestants as needed. Use Robitussin or Robitussin-DM for cough. Can use afrin for congestion but no longer than 3 days. Can use Mucinex to bring up phlegm. Use Motrin or Tylenol as needed for fever, aches, or pains. Increase fluid intake and rest. Should improve over next 5-7 days and if no better or worse call for re-evaluation. Relevant Medications cefdinir (Omnicef) 300 MG capsule predniSONE (Deltasone) 50 MG tablet documented in this encounter [facility] History of Present illness Narrative 07-01-2024 Mane Lee MD - 07/01/2024 10:54 AM Karlo Lee MD - 07/01/2024 10:54 AM Karlo Lee MD - 07/01/2024 10:53 AM Karlo Lee MD - 07/01/2024 10:53 AM EDT Note Date & Type Note Facility 07-01-2024 History of Presen t illness Narrative Associated Problem(s): Morbid obesity due to excess calories (CMS/HCC) Patient doing well with adipex and lost 3 pounds in 2 months. Tolerating well with only mild dry mouth. Continue with dietary changes and less calories. Need to limit snacking and smaller portions. Continue healthier choices. Need regular aerobic exercise 30 minutes at a time 5-6 days a week. Refill for final month. OARRS reviewed. Continue meds as prescribed. If develop new or worsening symptoms contact office. Associated Problem(s): Leg edema Edema worse and resume lasix. Elevate legs PRN. Associated Problem(s): Essential hypertension, benign (CMS/HCC) BP controlled and monitor PRN. Associated Problem(s): Degenerative lumbar spinal stenosis Pain improved after injection. Continue medication and home exercises. Associated Problem(s): COPD (chronic obstructive pulmonary disease) (CMS/HCC) Symptoms stable and continue anoro. Use albuterol PRN. Images from the original note were not included. Subjective Patient ID: Lawrence Harrison is a 58 y.o. female who presents for Follow-up (1 m). Follow up HTN, back pain, COPD, edema, and weight. Checking BP PRN and typically controlled. BP normal today. Taking medication daily and tolerating without side effects. COPD stable. Mild SOB with exertion. No cough or sputum. Using albuterol PRN and helps when needed. Edema recently worse. Working 12 hour shifts and worked past 4 days in a row. Increased swelling after work. Edema improved in am and with elevation. Not used lasix for a few days. Back pain stable and mild pain. No radiation into legs and no weakness in legs. Taking adipex and weight unchanged from last visit and down 3 pounds in 2 months. Tolerating medication without side effects except mild dry mouth. Not as hungry with medication. Smaller portions and not snacking. Increased fruits and vegetables. Tries to limit total daily calories. Increased activity and walking almost daily. Review of Systems Respiratory: Negative for cough, [...] - Primary BP controlled and monitor PRN. Relevant Medications amLODIPine (Norvasc) 5 MG tablet Leg edema Edema worse and resume lasix. Elevate legs PRN. COPD (chronic obstructive pulmonary disease) (CMS/HCC) Symptoms stable and continue anoro. Use albuterol PRN. Relevant Medications albuterol HFA 90 mcg/act inhaler Degenerative lumbar spinal stenosis Pain improved after injection. Continue medication and home exercises. Morbid obesity due to excess calories (CMS/HCC) Patient doing well with adipex and lost 3 pounds in 2 months. Tolerating well with only mild dry mouth. Continue with dietary changes and less calories. Need to limit snacking and smaller portions. Continue healthier choices. Need regular aerobic exercise 30 minutes at a time 5-6 days a week. Refill for final month. OARRS reviewed. Continue meds as prescribed. If develop new or worsening symptoms contact office. Relevant Medications phentermine (Adipex-P) 37.5 MG tablet documented in this encounter [facility] History of Present illness Narrative 12-23-2023 Mane Lee MD - 12/23/2023 1:53 PM Gal Lee MD - 12/23/2023 1:51 PM Gal Lee MD - 12/23/2023 1:50 PM ESTMane Lee MD - 12/23/2023 1:50 PM EST Note Date & Type Note Facility 12-23-2023 History of Presen t illness Narrative Associated Problem(s): COPD (chronic obstructive pulmonary disease) ([facility]/HCC) Symptoms stable and use albuterol PRN. Associated Problem(s): Lumbar disc herniation with radiculopathy Pain unchanged and continued weakness in legs. Scheduled with pain pain management and will try injections. Extend off work until 03/08/24. Associated Problem(s): Leg edema Edema controlled with lasix and continue PRN. Elevated legs throughout the day. Associated Problem(s): Essential hypertension, benign ([facility]/HCC) BP controlled and monitor PRN. Associated Problem(s): [...] Note Facility [facility] Evaluation note Note Date & Type Note Facility Evaluation note Diagnosis Essential hypertension, benign (CMS/HCC)- Primary Essential hypertension, benign Degenerative lumbar spinal stenosis Spinal stenosis of lumbar region Lumbar disc herniation with radiculopathy Displacement of lumbar intervertebral disc without myelopathy Leg edema Edema Chronic obstructive pulmonary disease, unspecified COPD type (CMS/HCC) documented in this encounter [facility] Evaluation note Note Date & Type Note Facility Evaluation note Diagnosis Essential hypertension, benign (CMS/HCC)- Primary Essential hypertension, benign Leg edema Edema Chronic obstructive pulmonary disease, unspecified COPD type (CMS/HCC) Degenerative lumbar spinal stenosis Spinal stenosis of lumbar region Morbid obesity due to excess calories (CMS/HCC) documented in this encounter [facility] Evaluation note Note Date & Type Note Facility Evaluation note Diagnosis Acute bronchitis due to other specified organisms- Primary Essential hypertension, benign (CMS/HCC) Essential hypertension, benign Spinal stenosis, lumbar region, without neurogenic claudication Vitamin D deficiency Degeneration of lumbar intervertebral disc Degeneration of lumbar or lumbosacral intervertebral disc Lower extremity edema Edema Moderate COPD (chronic obstructive pulmonary disease) (CMS/HCC) documented in this encounter [facility] Evaluation note Note Date & Type Note Facility Evaluation note Diagnosis Essential hypertension, benign (CMS/HCC)- Primary Essential hypertension, benign Degenerative lumbar spinal stenosis Spinal stenosis of lumbar region Lumbar disc herniation with radiculopathy Displacement of lumbar intervertebral disc without myelopathy Morbid obesity (CMS/HCC) Morbid obesity Essential hypertension, benign (CMS/HCC)- Primary Essential hypertension, benign Degenerative lumbar spinal stenosis Spinal stenosis of lumbar region Leg edema Edema Morbid obesity (CMS/HCC) Morbid obesity Essential hypertension, benign (CMS/HCC)- Primary Essential hypertension, benign Degenerative lumbar spinal stenosis Spinal stenosis of lumbar region Lumbar disc herniation with radiculopathy Displacement of lumbar intervertebral disc without myelopathy Leg edema Edema Chronic obstructive pulmonary disease, unspecified COPD type (CMS/HCC) Essential hypertension, benign (CMS/HCC)- Primary Essential hypertension, benign Degenerative lumbar spinal stenosis Spinal stenosis of lumbar region Chronic obstructive pulmonary disease, unspecified COPD type (CMS/HCC) Leg edema Edema Morbid obesity due to excess calories (CMS/HCC) Body mass index [BMI] 45.0-49.9, adult (Z68.42) Essential hypertension, benign (CMS/HCC)- Primary Essential hypertension, benign Chronic obstructive pulmonary disease, unspecified COPD type (CMS/HCC) Degenerative lumbar spinal stenosis Spinal stenosis of lumbar region Leg edema Edema Breast cancer screening by mammogram Morbid obesity due to excess calories (CMS/HCC) Body mass index [BMI] 45.0-49.9, adult (Z68.42) Essential hypertension, benign (CMS/HCC)- Primary Essential hypertension, benign Chronic obstructive pulmonary disease, unspecified COPD type (CMS/HCC) Degenerative lumbar spinal stenosis Spinal stenosis of lumbar region Leg edema Edema Morbid obesity due to excess calories (CMS/HCC) Injury of ulnar collateral ligament of wrist, right, initial encounter Essential hypertension, benign (CMS/HCC)- Primary Essential hypertension, benign Leg edema Edema Chronic obstructive pulmonary disease, unspecified COPD type (CMS/HCC) Degenerative lumbar spinal stenosis Spinal stenosis of lumbar region Morbid obesity due to excess calories (CMS/HCC) Annual physical exam- Primary Routine general medical examination at a health care facility Essential hypertension, benign (CMS/HCC) Essential hypertension, benign Chronic obstructive pulmonary disease, unspecified COPD type (CMS/HCC) Class 3 severe obesity due to excess calories with serious comorbidity and body mass index (BMI) of 45.0 to 49.9 in adult (CMS/HCC) Cigarette smoker Tobacco use disorder documented in this encounter [facility] Summary Purpose Family History No Family History Records FoundNo Family History Records FoundNo Family History Records FoundNo Family History Records Found Advance Directives Advance Directive Response Recorded Date/ Time Advance Directives No December 10, 2023 3:29pm Chief Complaint and Reason for Visit Chief Complaint M54.50 Additional Source Comments INFORMATION SOURCE (unrecogn ized section and content) DATE CREATED AUTHOR 02/02/2023 Donna herrera DATE CREATED AUTHOR AUTHOR'S ORGANIZ ATION 02/04/2024 [facility] DATE CREATED AUTHOR AUTHOR'S ORGANIZ ATION 03/27/2024 [facility] DATE CREATED AUTHOR AUTHOR'S ORGANIZ ATION 01/11/2025 [facility] Care Teams (unrecognized sec tion and content) Team Status: Active Member Role Status Dates Mane Lee MD Primary Care Provider Active Team Status: Inactive Member Role Status Dates Mane Lee MD Primary Care Provider Active S tart: December 10, 2023 End: December 10, 2023 BERNICE Blanc Attending Provider Active Start: December 10, 2023 End: December 10, 2023 Crisis Intervention Specialist Relationship Specialty Start Date End Date Mane Lee MD [address] [place] [address] PCP - General Family Medicine 12/23/23 Crisis Intervention Specialist Relationship Specialty Start Date End Date Mane Lee MD [address] [place] [address] PCP - General Family Medicine 12/23/23 Crisis Intervention Specialist Relationship Specialty Start Date End Date Mane Lee MD [address] [place] [address] PCP - General Family Medicine 12/23/23 Mane Lee MD [address] [place] [phone] PCP - [employer] 01/09/24 Crisis Intervention Specialist Relationship Specialty Start Date End Date Mane Lee MD [address] [place] [phone] PCP - General Family Medicine 12/23/23 Mane Lee MD [address] [place] [address] PCP - [employer] 01/09/24 Crisis Intervention Specialist Relationship Specialty Start Date End Date Mane Lee MD [address] [place] [address] PCP - General Family Medicine 12/23/23 Mane Lee MD [address] [place] [phone] PCP - [employer] 01/09/24 Crisis Intervention Specialist Relationship Specialty Start Date End Date Mane Lee MD [address] [place] [phone] PCP - General Family Medicine 12/23/23 Mane Lee MD [address] [place] [phone] PCP - [employer] 01/09/24 Crisis Intervention Specialist Relationship Specialty Start Date End Date Mane Lee MD [address] [place] [phone] PCP - General Family Medicine 12/23/23 Mane Lee MD [address] [place] [phone] PCP - [employer] 01/09/24 Crisis Intervention Specialist Relationship Specialty Start Date End Date Mane Lee MD [address] [place] [phone] PCP - General Family Medicine 12/23/23 Mane Lee MD [address] [place] [phone] PCP - [employer] 01/09/24 Crisis Intervention Specialist Relationship Specialty Start Date End Date Mane Lee MD [address] [place] [phone] PCP - General Family Medicine 12/23/23 Mane Lee MD [address] [place] [address] PCP - [employer] 01/09/24 Goals (unrecognized section and content) Goals may be documented in a n alternate section Reason for Visit (unrecogniz ed section and content) Reason Comments Follow-up 1 m Reason Comments Follow-up Chest/head congestio n, chills, Headach Reason Comments Follow-up 6m Back Pain Getting bad again FOR RECORDS PERTAINING TO PATIENTS WHO ARE [...] BE BASED ON THE PRIMARY CLINICAL RECORDS. [facility]. provides no warranty or guarantee of the accuracy or completeness of information in this document.
== END 2025-01-19 10:40 | disposition home or self-care (01) ==
LOC: PM 10:40
PROVIDERS: PCP Family Medicine; Visit Provider Nurse Practitioner
DX: M47.816 Spondylosis without myelopathy or radiculopathy, lumbar region (principal); M48.062 Spinal stenosis, lumbar region with neurogenic claudication; M79.18 Myalgia, other site; M54.6 Pain in thoracic spine
CPT/HCPCS: G0463

== ENCOUNTER 2025-01-26 11:11 | Outpatient (OUT) | payer BC, SELFPAY ==
--- NOTE | 2025-01-26 11:17 | XR_ITS ---
[place] [address] Patient Name: LAWRENCE HARRISON MRN: [id number] date: 1965 Sex: F Assigned Patient Location: [facility] Current Patient Location: [facility] Accession/Order Number: [id number] Exam Date: 01/26/2025 12:15 Report Date: 01/26/2025 12:15 At the request of: ASH MARTÍNEZ NP Procedure: XR lumbar spine min 4V LUMBAR SPINE - 5 views CLINICAL HISTORY: Lumbar Spondylosis COMPARISON: None FINDINGS: Bones are grossly demineralized. Vertebral body heights appear maintained. Endplate and facet joint degenerative changes without significant disc height loss. SI joints demonstrate degenerative change. XR/XR lumbar spine min 4V IMPRESSION: PREDOMINANTLY ENDPLATE AND FACET JOINT DEGENERATIVE CHANGES WITHOUT SIGNIFICANT DISC HEIGHT LOSS. Impression dictated by: Owen Smith Jr., D.O.01/26/2025 12:15 PM Dictation Location: [place] [address] Electronically authenticated by: [id number] Y Date: 01/26/2025 12:15
--- NOTE | 2025-01-26 11:17 | XR_ITS ---
[address] [address] Patient Name: LAWRENCE HARRISON MRN: [id number] date: 1965 Sex: F Assigned Patient Location: [facility] Current Patient Location: [facility] Accession/Order Number: [id number] Exam Date: 01/26/2025 12:14 Report Date: 01/26/2025 12:14 At the request of: ASH MARTÍNEZ NP Procedure: XR thoracic spine 2V THORACIC SPINE - - 2 views CLINICAL HISTORY: Thoracic Pain COMPARISON: None FINDINGS: Vertebral body heights appear maintained. Scattered endplate degenerative changes. Pedicles appear intact. XR/XR thoracic spine 2V IMPRESSION: DEGENERATIVE CHANGES WITHOUT ACUTE PROCESS. Impression dictated by: Owen Smith Jr., D.OMartell01/26/2025 12:14 PM Dictation Location: [place] [address] Electronically authenticated by: [id number] Y Date: 01/26/2025 12:14
== END 2025-01-26 11:12 | disposition home or self-care (01) ==
LOC: RAD 11:13
PROVIDERS: PCP Family Medicine; Visit Provider Nurse Practitioner
DX: M54.6 Pain in thoracic spine (principal); M47.816 Spondylosis without myelopathy or radiculopathy, lumbar region; M51.369 Other intervertebral disc degeneration, lumbar region without mention of lumbar back pain or lower extremity pain
CPT/HCPCS: 72070; 72110

== ENCOUNTER 2025-08-02 15:42 | Outpatient (OUT) | payer BC, SELFPAY ==
--- NOTE | 2025-08-02 | XR_ITS ---
The [address] [address] Patient Name: LAWRENCE HARRISON MRN: [id number] date: 1965 Sex: F Assigned Patient Location: [facility] Current Patient Location: [facility] Accession/Order Number: [id number] Exam Date: 08/02/2025 15:53 Report Date: 08/02/2025 18:18 At the request of: JOLANTA LEE MD Procedure: XR knee LT 4V 4 views left knee CLINICAL HISTORY: Left knee pain; M25.562 COMPARISON: None FINDINGS: No fracture or dislocation. Minimal degenerative spurring involving medial compartments. No definite joint effusion. Soft tissues unremarkable. XR/XR knee LT 4V IMPRESSION: Minimal degenerative change. Negative acute osseous abnormality. Impression dictated by: Jackson Rascon M.D. 08/02/2025 6:18 PM Dictation Location: [place] [address] Electronically authenticated by: [id number] Y Date: 08/02/2025 18:18
--- OUTSIDE RECORDS SUMMARY | 2025-08-02 15:47 | XMS_ITS | Encounter Summary ---
Author Organization [facility] Address [address] [place] [address] Care Team Providers Care Auto Body Shop Manager Name Role Phone Mane Kearney MD Primary Care Provider [phone] Mane Kearney MD Unavailable Encounter Details Date Type Department Care Team (Late st Contact Info) Description 06/25/2024 Clinisync Result Encounter [facility] External Department Unsolicited Mane Kearney MD [address] [place] [id number] Social History Tobacco Use Types Packs/Day Years Used Date Smoking Tobacco: Every Day Cigarettes Smokeless Tobacco: Never Humiliation, Afraid, Rape, and Kick questionnair e Answer Date Recorded Within the last year, have y ou been afraid of your partner or ex-partner? No 11/26/2023 Within the last year, have y ou been humiliated or emotionally abused in other ways by your partner or ex-partner? No Within the last year, have y ou been kicked, hit, slapped, or otherwise physically hurt by your partner or ex-partner? No 11/26/2023 Within the last year, have y ou been raped or forced to have any kind of sexual activity by your partner or ex-partner? No 11/26/2023 Social Connection and Isolation Panel [NHANES] A nswer Date Recorded In a typical week, how many times do you talk on the phone with family, friends, or neighbors? Once a week 11/26/2023 How often do you get together with friends or re latives? Once a week 11/26/2023 How often do you attend hoahaoism or quaker serv ices? Never 11/26/2023 Do you belong to any clubs o r organizations such as hoahaoism groups, unions, fraternal or athletic groups, or school groups? No 11/26/2023 How often do you attend meet ings of the clubs or organizations you belong to? Never 11/26/2023 Are you , , di vorced, , never , or living with a partner? 11/26/2023 AUDIT-C Answer Date Recorded Q1: How often do you have a drink containing alcohol? Never 11/26/2023 Q2: How many drinks containi ng alcohol do you have on a typical day when you are drinking? Patient does not drink Q3: How often do you have si x or more drinks on one occasion? Never 11/26/2023 Overall Financial Resource Strain (CARDIA) Answe r Date Recorded How hard is it for you to pa y for the very basics like food, housing, medical care, and heating? Not very hard 11/26/2023 [facility] - Occupational Stress Questionnaire Answer Date Recorded Do you feel stress - tense, restless, nervous, or anxious, or unable to sleep at night because your mind is troubled all the time - these days? Not at all 11/26/2023 Exercise Vital Sign Answer Date Recorde d On average, how many days pe r week do you engage in moderate to strenuous exercise (like a brisk walk)? 0 days On average, how many minutes do you engage in exercise at this level? Patient declined 11/26/2023 Hunger Vital Sign Answer Date Recorded Within the past 12 months, y ou worried that your food would run out before you got the money to buy more. Never true 11/26/19 24 Within the past 12 months, t he food you bought just didn't last and you didn't have money to get more. Never true 11/26/2023 PRAPARE - Transportation Answer Date Re corded In the past 12 months, has l ack of transportation kept you from medical appointments or from getting medications? No 11/10 In the past 12 months, has l ack of transportation kept you from meetings, work, or from getting things needed for daily living? No 11/26/2023 Housing Stability Vital Sign Answer Roby e Recorded In the last 12 months, was t here a time when you were not able to pay the mortgage or rent on time? No 11/26/2023 Number of Places Lived in the Last Year Not on f ile 11/26/2023 In the last 12 months, was t here a time when you did not have a steady place to sleep or slept in a chcf (including now)? No 11/26/2023 Comments Unknown Sex and Gender Information Value Date Recorded Sex Assigned at Not on file Legal Sex Female 6:46 PM EDT Gender Identity Not on file Sexual Orientation Not on file documented as of this encounter Plan of Treatment Not on file documented as of this encounter Procedures Procedure Name Priority Date/Time Associated Diagnosis Comments MM TOMOSYNTHESIS SCREENING BI 06/25/2024 12:40 PM EDT documented in this encounter Results * MM TOMOSYNTHESIS SCREENING BI (06/25/2024 12:40 PM EDT) Anatomical Region Laterality Modality Other 06/25/2024 12:4 0 PM EDT Narrative 06/25/2024 12:41 [place] [address] Mammography Report Signed Patient: JAZZ JUARES MR#: [id number] : 1965 Acct:[id number] Age/Sex: 58 / F ADM Date: 06/24/24 Loc: MAMMO Attending Dr: Mane Kearney M.D. Ordering Physician: Mane Kearney M.D. Results: Date of Service: 06/24/24 Follow Up: Procedure(s): MM tomosynthesis screening BI Accession Number(s): [id number] cc: Mane Kearney M.D. Patient Name: JAZZ JUARES MR#: [id number] : 1965 Exam Date: 06/24/2024 Ordering Doctor: DR Mane Kearney . RADIOLOGY REPORT PROCEDURE: MM TOMOSYNTHESIS SCREENING BI COMPARISON: MG MAMM SCREEN 3D MANJIT CAD, 01/29/2023. MG MAMM SCREEN 3D MANJIT CAD, 09/05/2021. MG MAMM SCREEN MANJIT W CAD, 08/31/2019. MG MAMM MANJIT DIAG W CAD DIG, 10/10/2014. INDICATIONS: Screening Calculator Name NCI Breast Cancer Risk Assessment Tool 5 Year Breast Cancer Risk 1.50% Lifetime Breast Cancer Risk 7.40% Personal Breast Cancer No Personal Ovarian Cancer No Treatments None Family Cancers Grandmother-maternal with breast cancer at age 65; Grandfather-maternal with lung cancer at age 63; Mother with rectal cancer at age 75. LOCATION: [facility] BREAST COMPOSITION: There are scattered areas of fibroglandular density. FINDINGS: DIAGNOSTIC CATEGORY 1--NEGATIVE. RIGHT BREAST: No significant suspicious finding. No significant change has occurred. LEFT BREAST: No significant suspicious finding. No significant change has occurred. RECOMMENDATIONS: ROUTINE MAMMOGRAM AND CLINICAL EVALUATION IN 12 MONTHS. PLEASE NOTE: A NORMAL MAMMOGRAM DOES NOT EXCLUDE THE POSSIBILITY OF BREAST CANCER. A CLINICALLY SUSPICIOUS PALPABLE LUMP SHOULD BE BIOPSIED. Dictated by: Juan David Parry M.D. on 06/25/2024 at 12:29 Approved by: Juan David Parry M.D. on 06/25/2024 at 12:40 Dictated By: Juan David Parry M.D. Signed By: 06/25/24 1241 DD/ 1240 TD/TT: Per Diem Physical Therapist Assistant: Procedure Note Radiology, Radiologist, MD - 06/25/2024 [place] [address] Mammography Report Signed Patient: JAZZ JUARES DMR#: [id number] : 1965Acct:[id number] Age/Sex: 58 / FADM Date: 06/24/24 Loc: MAMMO Attending Dr: Mane Kearney M.D. Ordering Physician: Mane Kearney M.D.Results: Date of Service: 06/24/24Follow Up: Procedure(s): MM tomosynthesis screening BI Accession Number(s): [id number] cc: Mane Kearney M.D. Patient Name: JAZZ JUARES MR#: [id number] : 1965 Exam Date: 06/24/2024 Ordering Doctor: DR Mane Kearney . RADIOLOGY REPORT PROCEDURE: MM TOMOSYNTHESIS SCREENING BI COMPARISON: MG MAMM SCREEN 3D MANJIT CAD, 01/29/2023. MG MAMM SCREEN 3DBIL CAD, 09/05/2021. MG MAMM SCREEN MANJIT W CAD, 08/31/2019. MG MAMM MANJIT DIAGW CAD DIG, 10/10/2014. INDICATIONS: Screening Calculator Name NCI Breast Cancer Risk Assessment Tool 5 Year Breast Cancer Risk 1.50% Lifetime Breast Cancer Risk 7.40% Personal Breast Cancer No Personal Ovarian Cancer No Treatments None Family Cancers Grandmother-maternal with breast cancer at age 65; Grandfather-maternal with lung cancer at age 63; Mother with rectalcancer at age 75. LOCATION: [facility] BREAST COMPOSITION: There are scattered areas of fibroglandulardensity. FINDINGS: DIAGNOSTIC CATEGORY 1--NEGATIVE. RIGHT BREAST: No significant suspicious finding. No significant changehas occurred. LEFT BREAST: No significant suspicious finding. No significant changehas occurred. RECOMMENDATIONS: ROUTINE MAMMOGRAM AND CLINICAL EVALUATION IN 12 MONTHS. PLEASE NOTE: A NORMAL MAMMOGRAM DOES NOT EXCLUDE THE POSSIBILITY OFBREAST CANCER. A CLINICALLY SUSPICIOUS PALPABLE LUMP SHOULD BE BIOPSIED. Dictated by: Juan David Parry M.D. on 06/25/2024 at 12:29 Approved by: Juan David Parry M.D. on 06/25/2024 at 12:40 Dictated By: Juan David Parry M.D. Signed By:06/25/24 1241 DD/ 1240 TD/TT: Per Diem Physical Therapist Assistant: Mane Kearney MD [facility] Final Result documented in this encounter Visit Diagnoses Not on filedocumented in this encounter Care Teams Auto Body Shop Manager Relationship Specialty Start Date End Date Mane Kearney MD PCP - General Family Medicine 12/23/23 Mane Kearney MD [address] [place] [address] PCP - [employer] 01/09/24 documented as of this encounter
--- OUTSIDE RECORDS SUMMARY | 2025-08-02 15:47 | XMS_ITS | Clinical Summary ---
Author Organization [email or web address] [facility] tem Address [id number] [address] [place] [address] Care Team Providers Care Roll Up Helper Name Role Phone Mane Kearney MD Primary Care Provider [phone] Allergies Active Allergy Reactions Criticality Noted Date Comments Ciprofloxacin Anaphylaxis High 02/28/2022 Medications VITAMIN D3 50 mcg (2,000 unit) capsule Take 2,000 Units by mouth daily. 12/23/2021 Active acetaminophen (TYLENOL EXTRA STRENGTH) 500 mg tablet Take 500 mg by mouth every 6 (six) hours as needed for pain. Active Active Problems No known active problems Family History Medical History Relation Name Comments Dementia Father Stroke Father Leukemia Maternal Aunt Lung cancer Maternal Grandfather Lung cancer Maternal Grandmother COPD Mother Relation Name Status Comments Father Maternal Aunt Maternal Grandfather Maternal Grandmother Mother Social History Tobacco Use Types Packs/Day Years Used Date Smoking Tobacco: Every Day Cigarettes 0.5 30 Smokeless Tobacco: Never Alcohol Use Standard Drinks/Week Comments Yes 0 (1 standard drink = 0.6 oz pur e alcohol) socially Childcare Answer Date Recorded Childcare Unknown 04/21/2019 Employment Answer Date Recorded Employment Unknown 04/21/2019 Purpose - Life Answer Date Recorded Purpose and direction in life Unknown Comments No Sex and Gender Information Value Date Recorded Sex Assigned at Not on file Legal Sex Female 11:32 AM EDT Gender Identity Not on file Sexual Orientation Not on file Last Filed Vital Signs Vital Sign Reading Time Taken Comments Blood Pressure 202/90 05/20/2022 8:11 AM EDT Pulse 82 05/20/2022 7:56 AM EDT Temperature 36.4 C (97.6 F) 05/20/2022 6:15 AM EDT Respiratory Rate 18 05/20/2022 7:56 AM EDT Oxygen Saturation 95% 05/20/2022 7:56 AM EDT Inhaled Oxygen Concentration - - Weight 113.4 kg (250 lb) 05/20/2022 6:15 AM EDT Height 160 cm (5' 3 ) 05/20/2022 6:15 AM EDT Body Mass Index 44.29 05/20/2022 6:15 AM EDT Plan of Treatment Health Maintenance Due Date Last Done Comments Depression Screening 1975 Tobacco Screening 1975 Adult BMI Screening 1981 Pap Smear 1984 Zoster (Shingles) Vaccine (1 of 2) 2013 COVID-19 Vaccine (2024-2 6 season) 2025 03/03/2022, 03/07/2021, 02/07/2021 Influenza Vaccine 07/11/2025 08/23/2021, , 08/23/2019 Colonoscopy 05/20/2027 05/20/2022, 05/20/2022 DTaP,Tdap and Td Vaccines (2 - Td or Tdap) 11/19/2030 11/19/2020 Medical Devices Not on file Procedures Procedure Name Priority Date/Time Associated Diagnosis Comments PROVATION COLONOSCOPY Routine 05/20/2022 6:19 AM EDT from Last 3 Months or Most Recently Relevant to Health Maintenance Results * Colonoscopy Report (05/20/2022 6:19 AM EDT) Narrative SYSTEMGENERATED, DOCUMENTATION - 05/20/2022 6:19 AM EDT This order has been auto-finalized for image and report archival in PACs. *For full report details, please reach out to your physician. Effective 03/27/21 this image will be visible to you in MyChart.* us Allen Villegas DO IMG OR IMG ORDERABLES Final Result from Last 3 Months or Most Recently Relevant to Health Maintenance Insurance ANTH Care Teams Roll Up Helper Relationship Specialty Start Date End Date Mane Kearney MD PCP - General Family Medicine 05/16/22
--- OUTSIDE RECORDS SUMMARY | 2025-08-02 15:47 | XMS_ITS | Encounter Summary ---
Author Organization [facility] Address [address] [place] [address] Care Team Providers Care Correctional Officer Captain Name Role Phone Mane Kearney MD Primary Care Provider [phone] Mane Kearney MD Primary Care Provider [phone] Mane Kearney MD Unavailable Encounter Details Date Type Department Care Team (Late st Contact Info) Description 10/31/2023 Orders Only [facility] [address] [place] [address] Mane Kearney MD [address] [facility] [place] [address] Social History Tobacco Use Types Packs/Day Years Used Date Smoking Tobacco: Every Day Cigarettes Smokeless Tobacco: Never Comments Unknown Sex and Gender Information Value Date Recorded Sex Assigned at Not on file Legal Sex Female 6:46 PM EDT Gender Identity Not on file Sexual Orientation Not on file documented as of this encounter Plan of Treatment Not on file documented as of this encounter Visit Diagnoses Not on filedocumented in this encounter Care Teams Correctional Officer Captain Relationship Specialty Start Date End Date Mane Kearney MD PCP - General Family Medicine 05/09/23 12/22/23 Mane Kearney MD PCP - General Family Medicine 12/23/23 Mane Kearney MD [address] [place] [phone] PCP - [employer] 01/09/24 documented as of this encounter
--- OUTSIDE RECORDS SUMMARY | 2025-08-02 15:47 | XMS_ITS | Clinical Summary ---
Author Organization [facility] Healthcare Address [address] [place] [address] Care Team Providers Care Customer Quality Engineer Name Role Phone Mane Kearney MD Primary Care Provider Mane Kearney MD Unavailable Allergies Active Allergy Reactions Criticality Noted Date Comments Ciprofloxacin 10/31/2023 Medications albuterol (2.5 MG/3ML) 0.083% nebulizer solutionIndication s:Moderate COPD (chronic obstructive pulmonary disease) (HCC) Take 3 mL (2.5 mg) by nebulization every 6 (six) hours if needed for shortness of breath 75 mL 10/28/20 23 Active albuterol HFA 90 mcg/act inhalerIndications :Chronic obstructive pulmonary disease, unspecified COPD type (HCC) Inhale 2 puffs every 6 (six) hours if needed for shortness of breath 18 g 3 07/01/20 24 Active losartan-hydroCHLO ROthiazide (Hyzaar) 100-25 MG tabletIndications: Essential hypertension, benign Take 1 tablet by mouth Daily 90 tablet 3 07/27/20 24 Active amLODIPine (Norvasc) 5 MG tabletIndications: Essential hypertension, benign Take 1 tablet (5 mg) by mouth Daily 90 tablet 3 08/04/20 24 025 Active celecoxib (CeleBREX) 200 MG capsuleIndications :Spinal stenosis, lumbar region, without neurogenic claudication Take 1 capsule (200 mg) by mouth in the morning and 1 capsule (200 mg) before bedtime. 180 capsule 3 08/04/20 24 025 Active cholecalciferol (Vitamin D-3) 50 MCG (1999) tabletIndications: Vitamin D deficiency Take 1 tablet (50 mcg) by mouth Daily 90 tablet 3 08/04/20 24 025 Active DULoxetine (Cymbalta) [address] capsuleIndications :Degeneration of lumbar intervertebral disc Take 1 capsule (60 mg) by mouth Daily 90 capsule 3 08/04/20 24 025 Active furosemide (Lasix) 40 MG tabletIndications: Lower extremity edema Take 1 tablet (40 mg) by mouth Daily 90 tablet 3 08/04/20 24 025 Active potassium chloride CR (K-Tab) 20 MEQ ER tabletIndications: Lower extremity edema Take 1 tablet (20 mEq) by mouth Daily 90 tablet 3 08/04/20 24 025 Active zonisamide (Zonegran) 50 MG capsuleIndications :Spinal stenosis, lumbar region, without neurogenic claudication Take 1 capsule (50 mg) by mouth at bedtime 90 capsule 3 08/04/20 24 Active cyclobenzaprine (Flexeril) 10 MG tabletIndications: Spinal stenosis, lumbar region, without neurogenic claudication TAKE 1 TABLET BY MOUTH THREE TIMES DAILY NEEDED FOR MUSCLE SPASMS 90 tablet 3 04/28/20 25 Active Umeclidinium-Vilan terol (Anoro Ellipta) 62.5-25 MCG/ACT aerosol powderIndications: Moderate COPD (chronic obstructive pulmonary disease) ([facility]) INHALE 1 PUFF BY MOUTH ONCE DAILY 60 each 3 04/28/20 25 Active phentermine (Adipex-P) 37.5 MG tabletIndications: Class 3 severe obesity due to excess calories with serious comorbidity and body mass index (BMI) of 45.0 to 49.9 in adult ([facility]) Take 1 tablet (37.5 mg) by mouth in the morning. Take before meals. 30 tablet 05/27/20 25 Active Active Problems Problem Noted Date Diagnosed Date Annual physical exam 01/10/2025 Assessment & Plan (01/10/2025 11:05 AM EST): Due for labs. Discussed proper diet and regular aerobic exercise. Need aerobic exercise 5-6 days a week for 30 minutes at a time. Smaller portions and limit total calories. Colonoscopy every 10 years. Tetanus every 10 years. Advised not to smoke. 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 Treat with prednisone and ice PRN. Handout with ROM exercises to patient. If no improvement will need PT and or injection. Essential hypertension, benign 10/31/2023 Assessment & Plan (04/14/2025 11:08 AM EDT): BP controlled and monitor PRN. Assessment & Plan (02/14/2025 11:50 AM EDT): BP controlled and monitor PRN. Assessment & Plan (01/10/2025 11:06 AM EST): BP elevated today but previously controlled. Monitor PRN. Assessment & Plan (07/01/2024 10:53 AM EDT): BP controlled and monitor PRN. Assessment & Plan (06/02/2024 10:34 AM EDT): BP controlled and monitor PRN. Assessment & Plan (04/16/2024 10:56 AM EDT): BP controlled and monitor PRN. Assessment & Plan (01/22/2024 10:23 AM EDT): BP elevated today but c/o URI symptoms and typically normal. Monitor PRN. Discussed DASH diet. Assessment & Plan (12/23/2023 1:50 PM EST): BP controlled and monitor PRN. Assessment & Plan (11/26/2023 2:01 PM EST): BP controlled and monitor PRN. Assessment & Plan (10/31/2023 11:57 AM EST): BP controlled and monitor PRN. Leg edema 10/31/2023 Assessment & Plan (04/14/2025 11:08 AM EDT): Edema controlled with lasix. Elevate legs PRN. Assessment & Plan (02/14/2025 11:50 AM EDT): Edema controlled with lasix. Elevate legs PRN. Assessment & Plan (07/01/2024 10:54 AM EDT): Edema worse and resume lasix. Elevate legs PRN. Assessment & Plan (06/02/2024 10:34 AM EDT): Edema controlled with lasix and continue PRN. Elevated legs throughout the day. Assessment & Plan (04/16/2024 10:56 AM EDT): Edema controlled with lasix and continue PRN. Elevated legs throughout the day. Assessment & Plan (01/22/2024 10:23 AM EDT): Edema controlled with lasix and continue PRN. Elevated legs throughout the day. Assessment & Plan (12/23/2023 1:50 PM EST): Edema controlled with lasix and continue PRN. Elevated legs throughout the day. Assessment & Plan (11/26/2023 2:01 PM EST): Edema controlled with lasix and continue PRN. Elevated legs throughout the day. COPD (chronic obstructive pulmonary disease) Assessment & Plan (04/14/2025 11:08 AM EDT): Breathing stable and encouraged to quit smoker. Continue inhalers. Assessment & Plan (02/14/2025 11:50 AM EDT): Breathing stable and encouraged to quit smoker. Continue inhalers. Assessment & Plan (01/10/2025 11:06 AM EST): Breathing stable and encouraged to quit smoker. Continue inhalers. Assessment & Plan (07/01/2024 10:53 AM EDT): Symptoms stable and continue anoro. Use albuterol PRN. Assessment & Plan (06/02/2024 10:34 AM EDT): Symptoms stable and continue anoro. Use albuterol PRN. Assessment & Plan (04/16/2024 10:55 AM EDT): Symptoms stable and continue anoro. Use albuterol PRN. Assessment & Plan (01/22/2024 10:22 AM EDT): Symptoms recently worse with URI symptoms but tolerable. Use albuterol PRN. Assessment & Plan (12/23/2023 1:53 PM EST): Symptoms stable and use albuterol PRN. Personal history of colonic polyps 10/31/2023 Obstructive sleep apnea (adult) (pediatric) 10/11 Osteopenia of neck of right femur 10/31/2023 Vitamin D deficiency 10/31/2023 Degenerative lumbar spinal stenosis 10/31/2023 Assessment & Plan (07/01/2024 10:53 AM EDT): Pain improved after injection. Continue medication and home exercises. Assessment & Plan (06/02/2024 10:34 AM EDT): Pain much improved after injection. Continue medication and home exercises. Assessment & Plan (04/16/2024 10:56 AM EDT): Pain much improved after injection. Continue medication and home exercises. Assessment & Plan (01/22/2024 10:22 AM EDT): Pain unchanged and continued weakness in legs. Scheduled with pain management for injections and follow up as scheduled. Return to work 02/02/24. Assessment & Plan (12/23/2023 1:50 PM EST): Pain unchanged and continued weakness in legs. Scheduled with pain pain management and will try injections. Extend off work until 03/08/24. Assessment & Plan (11/26/2023 2:01 PM EST): Pain unchanged and continued weakness in legs. Scheduled with surgeon 12/09 and injectinos with pain management on hold until get plan from surgeon. Off work until 01/05/24. Assessment & Plan (10/31/2023 11:58 AM EST): Pain unchanged and continued weakness in legs. MRI with herniated disc and central canal narrowing. Refer to neurosurgeon for evaluation. Follow up with pain management. Off work until 01/05/24. Class 3 severe obesity due t o excess calories with serious comorbidity and body mass index (BMI) of 45.0 to 49.9 in adult 10/31/2023 Assessment & Plan (04/14/2025 11:08 AM EDT): Patient doing well with adipex and lost 130 pounds since starting. Tolerating well with only mild dry mouth. Continue with dietary changes and less calories. Need to limit snacking and smaller portions. Continue healthier choices. Need regular aerobic exercise 30 minutes at a time 5-6 days a week. Refill for another month. OARRS reviewed. Continue meds as prescribed. If develop new or worsening symptoms contact office. Assessment & Plan (02/14/2025 11:50 AM EDT): Patient doing well with adipex and lost 10 pounds in first month. Tolerating well with only mild dry mouth. Continue with dietary changes and less calories. Need to limit snacking and smaller portions. Continue healthier choices. Need regular aerobic exercise 30 minutes at a time 5-6 days a week. Refill for second month. OARRS reviewed. Continue meds as prescribed. If develop new or worsening symptoms contact office. Assessment & Plan (01/10/2025 11:06 AM EST): Patient overweight and difficult time losing weight. [...] month. OARRS reviewed. Continue medications as prescribed. Assessment & Plan (07/01/2024 10:54 AM EDT): Patient doing well with adipex and lost [...] develop new or worsening symptoms contact office. Assessment & Plan (06/02/2024 10:35 AM EDT): Patient doing well with adipex and lost 3 pounds in first month. Tolerating well with only mild dry mouth. Continue with dietary changes and less calories. Need to limit snacking and smaller portions. Continue healthier choices. Need regular aerobic exercise 30 minutes at a time 5-6 days a week. Refill for second month. OARRS reviewed. Continue meds as prescribed. If develop new or worsening symptoms contact office. Assessment & Plan (04/16/2024 10:56 AM EDT): Patient overweight and difficult time losing weight. [...] month. OARRS reviewed. Continue medications as prescribed. Assessment & Plan (01/22/2024 10:24 AM EDT): Weight unchanged and need to lose weight to help with pain. Assessment & Plan (11/26/2023 2:02 PM EST): Patient doing well with adipex and lost 16 pounds in 3 months Tolerating well with only mild dry mouth. Continue with dietary changes and less calories. Need to limit snacking and smaller portions. Continue healthier choices. Need regular aerobic exercise 30 minutes at a time 5-6 days a week. Refill for another month. OARRS reviewed. Continue meds as prescribed. If develop new or worsening symptoms contact office. Assessment & Plan (10/31/2023 11:59 AM EST): Patient doing well with adipex and lost 16 pounds in 2 months Tolerating well with only mild dry mouth. Continue with dietary changes and less calories. Need to limit snacking and smaller portions. Continue healthier choices. Need regular aerobic exercise 30 minutes at a time 5-6 days a week. Refill for another month. OARRS reviewed. Continue meds as prescribed. If develop new or worsening symptoms contact office. Lumbar disc herniation with radiculopathy 2022 Assessment & Plan (12/23/2023 1:51 PM EST): Pain unchanged and continued weakness in legs. Scheduled with pain pain management and will try injections. Extend off work until 03/08/24. Assessment & Plan (10/31/2023 11:58 AM EST): Pain unchanged and continued weakness in legs. MRI with herniated disc and central canal narrowing. Refer to neurosurgeon for evaluation. Follow up with pain management. Off work until 01/05/24. Resolved Problems Problem Noted Date Diagnosed Date Resolved Date Acute bronchitis due to othe r specified organisms 08/04/2024 01/10/2025 Assessment & Plan (08/04/2024 11:34 AM EDT): Take antibiotics BID for 10 days. Use [...] no better or worse call for re-evaluation. Encounters Date Type Department Care Team Description 05/27/2025 Refill [facility] [address] [place] [address] Mane Kearney MD Class 3 severe obesity due to excess calories with serious comorbidity and body mass index (BMI) of 45.0 to 49.9 in adult ([facility]) from Last 3 Months Family History Medical History Relation Name Comments Arthritis Father Coronary artery disease Father Hypertension Father Kidney disease Father Stroke Father Relation Name Status Comments Father Social History Tobacco Use Types Packs/Day Years Used Date Smoking Tobacco: Every Day Cigarettes Smokeless Tobacco: Never Tobacco Cessation:Ready to Q uit: Not Asked; Counseling Given: Not Answered Humiliation, Afraid, Rape, and Kick questionnair e [...] week 11/26/2023 How often do you attend confucianist or worship serv ices? Never 11/26/2023 Do you belong to any clubs o r organizations such as confucianist groups, unions, fraternal or athletic groups, or [...] care, and heating? Not very hard 11/26/2023 [facility] - Occupational Stress Questionnaire Answer Date Recorded [...] place to sleep or slept in a nursing home (including now)? No 11/26/2023 Comments Unknown Sex and Gender Information Value Date Recorded Sex Assigned at Not on file Legal Sex Female 6:46 PM EDT Gender Identity Not on file Sexual Orientation Not on file Last Filed Vital Signs Vital Sign Reading Time Taken Comments Blood Pressure 126/74 04/14/2025 10:22 AM EDT Pulse 87 04/14/2025 10:22 AM EDT Temperature 36.3 C (97.3 F) 04/14/2025 10:22 AM EDT Respiratory Rate 20 04/14/2025 10:22 AM EDT Oxygen Saturation 97% 04/14/2025 10:22 AM EDT Inhaled Oxygen Concentration - - Weight 122 kg (270 lb) 04/14/2025 10:22 AM EDT Height 162.6 cm (5' 4 ) 04/14/2025 10:22 AM EDT Body Mass Index 46.35 04/14/2025 10:22 AM EDT Plan of Treatment Health Maintenance Due Date Last Done Comments CT Colonography 1963 FIT-DNA 1963 FIT 1963 FOBT 1965 Sigmoidoscopy 1963 Pap Smear 1984 Cervical Cancer Screening 1993 HPV/Cotest 1993 Mammogram 06/25/2025 06/25/2024, 01/29/2023 Influenza Vaccine (#1) 2025 , 08/21/2023, 08/23/2021, Additional history exists Colonoscopy 05/20/2032 05/20/2022, 05/20/2022 Colorectal Cancer Screening 05/20/2032 Procedures Procedure Name Priority Date/Time Associated Diagnosis Comments MM TOMOSYNTHESIS SCREENING BI 06/25/2024 12:40 PM EDT from Last 3 Months or Most Recently Relevant to Health Maintenance Results * MM TOMOSYNTHESIS SCREENING BI (06/25/2024 12:40 PM EDT) Anatomical Region Laterality Modality Other 06/25/2024 12:4 0 PM EDT Narrative 06/25/2024 12:41 [place] [address] Mammography Report Signed Patient: JAZZ JUARES MR#: [id number] : 1965 Acct:[id number] Age/Sex: 58 / F ADM Date: 06/24/24 Loc: MAMMO Attending Dr: Mane Kearney M.D. Ordering Physician: Mane Kearney M.D. Results: Date of Service: 06/24/24 Follow Up: Procedure(s): MM tomosynthesis screening BI Accession Number(s): [id number] cc: Mane Kearney M.D. Patient Name: JAZZ JUARES MR#: [id number] : 1965 Exam Date: 06/24/2024 Ordering Doctor: [...] rectal cancer at age 73. LOCATION: [facility] BREAST COMPOSITION: There are scattered areas [...] Signed By: 06/25/24 1241 DD/ 1240 TD/TT: Remote Inpatient Coder: Procedure Note Radiology, Radiologist, MD - 06/25/2024 [place] [address] Mammography Report Signed Patient: JAZZ JUARES DMR#: [id number] : 1965Acct:[id number] Age/Sex: 58 / FADM Date: 06/24/24 Loc: MAMMO Attending Dr: Mane Kearney M.D. Ordering Physician: Mane Kearney M.D.Results: Date of Service: 06/24/24Follow Up: Procedure(s): MM tomosynthesis screening BI Accession Number(s): [id number] cc: Mane Kearney M.D. Patient Name: JAZZ JUARES MR#: [id number] : 1965 Exam Date: 06/24/2024 Ordering Doctor: [...] with rectalcancer at age 73. LOCATION: [facility] BREAST COMPOSITION: There are scattered areas [...] M.D. Signed By:06/25/24 1241 DD/ 1240 TD/TT: Remote Inpatient Coder: Mane Kearney MD [facility] Final Result from Last 3 Months or Most Recently Relevant to Health Maintenance Insurance [employer] Care Teams Customer Quality Engineer Relationship Specialty Start Date End Date Mane Kearney MD PCP - General Family Medicine 12/23/23 Mane Kearney MD [address] [place] [address] PCP - [employer] 01/09/24
--- OUTSIDE RECORDS SUMMARY | 2025-08-02 15:50 | XMS_ITS | CCD ---
Author Organization [facility] Care Team Providers Care Stone Rigger Name Role Phone JESUS, DR MANE Avina [...] JESUS, DR MANE Avina Primary Care Unavailable [place], DR NIA Uriostegui Consulting Unavailable JESUS, DR MANE Avina Consulting Unavailable MD Mane Lee Primary Care Provider [phone] KETAN Shipman-C Lakisha Attending Provider Mane Lee MD Primary Care Provider Lakisha Shipman Attending Unavailable Lakisha Shipman Admitting Unavailable Mane Lee Primary Care Unavailable Melva BACK, Corine Puentes Attending Unavailable Melva BACK, Corine Puentes Attending Unavailable Melva BACK, Corine Puentes Attending Unavailable Melva BACK, Corine Puentes Attending Unavailable Mane Lee MD Unavailable MANE LEE Attending Unavailable JESUS, MANE Attending Unavailable MANE LEE Attending Unavailable MANE LEE Attending Unavailable MANE LEE Attending Unavailable MANE LEE Attending Unavailable MANE LEE Attending Unavailable Mane Lee MD Primary Care Provider Mane Lee MD Attending Provider [phone] Allergies Allergy Classification Reported Allergen(s) Allergy Type Date of Onset Reaction(s) Facility (1 source) Ciprofloxacin Drug Allergy 10-19-2014 [facility] Rep[facility] (20 sources) Ciprofloxacin Drug Allergy 10-31-2023 [facility] (1 source) Ciprofloxacin Drug Allergy 12-10-2023 [facility] Medications Current Medications Medication Drug Class(es) Dates Sig (Normalized) Sig (Original) albuterol 0.83 mg/ml inhalation solution (20 sources) beta2-Adrenergic Agonist Start: 07-21-2025 take 2.5 mg by inhalation every six hours as needed for wheezing Albuterol Sulfate 2.5 mg /3 mL (0.083 %) solution for nebulization Active 2.5 MG INHALATION Every 6 hours as needed for shortness of breath or wheezing July 21, 2025 12:00am Complies with drug therapy Start: 07-21-2025 take 1 puff(s) by in halation every six hours as needed Albuterol Sulfate 90 mcg/actuation HFA aerosol inhaler Active 2 PUFF INHALATION Every 6 hours as needed July 21, 2025 12:00am Complies with drug therapy Start: 10-28-2023 albuterol (2.5 MG/3ML) 0.083% nebulizer solution Indications: Moderate COPD (chronic obstructive pulmonary disease) (HCC) Take 3 mL (2.5 mg) by nebulization every 6 (six) hours if needed for shortness of breath 75 mL 10/28/2023 Active Start: 10-28-2023 End: 07-13-2025 take 2 puff(s) by inhalation every six hours albuterol HFA 90 mcg/act inhaler Indications: Chronic obstructive pulmonary disease, unspecified COPD type (HCC) Inhale 2 puffs every 6 (six) hours if needed for shortness of breath 18 g 3 07/01/2024 07/13/2025 Active amLODIPine 5 mg oral tablet (20 sources) Dihydropyridine Calcium Channel Cintia Start: 10-28-2023 End: 08-16-2025 take 1 tablet by mouth once daily Amlodipine 5 mg tablet Active 5 MG PO Daily July 21, 2025 12:00am Complies with drug therapy cefdinir 300 mg oral capsule (2 sources) [...] 08/14/2024 Active celecoxib 200 mg oral capsule (20 sources) Nonsteroidal Anti-inflammatory Drug Start: 10-28-2023 End: 08-16-2025 take 1 capsule by mouth twice daily Celecoxib 200 mg capsule Active 200 MG PO Twice daily July 21, 2025 12:00am Complies with drug therapy cholecalciferol 0.05 mg oral capsule (20 sources) Vitamin D Start: 07-21-2025 take 1 capsule by mouth once daily Cholecalciferol (Vitamin D3) 50 mcg (2,000 unit) capsule Active 50 MCG PO Daily July 21, 2025 12:00am Complies with drug therapy Start: 10-28-2023 End: 08-10-2025 take 1 tablet by mouth once daily cholecalciferol (Vitamin D-3) 50 MCG (2000 UT) tablet Indications: Vitamin D deficiency Take 1 tablet (50 mcg) by mouth Daily 90 tablet 3 08/04/2024 08/10/2025 Active cyclobenzaprine hydrochloride 10 mg oral tablet (20 sources) Muscle Relaxant Start: 07-21-2025 take 1 tablet by mouth three times daily as needed for muscle spasms Cyclobenzaprine 10 mg tablet Active 10 MG PO Three times daily as needed for muscle spasm July 21, 2025 12:00am Complies with drug therapy Start: 04-28-2025 take 1 tablet by ethan th three times daily as needed for muscle spasms cyclobenzaprine (Flexeril) 10 MG tablet Indications: Spinal stenosis, lumbar region, without neurogenic claudication TAKE 1 TABLET BY MOUTH THREE TIMES DAILY NEEDED FOR MUSCLE SPASMS 90 tablet 3 04/28/2025 Active Start: 03-31-2025 take 1 tablet by ethan th three times daily as needed for muscle spasms cyclobenzaprine (Flexeril) 10 MG tablet Indications: Spinal stenosis, lumbar region, without neurogenic claudication Take 1 tablet (10 mg) by mouth 3 (three) times a day as needed for muscle spasms 90 tablet 3 03/31/2025 Active Start: 09-15-2023 End: 08-04-2024 take 1 tablet by mouth three times daily as needed for muscle spasms cyclobenzaprine (Flexeril) 10 MG tablet Indications: Spinal stenosis, lumbar region, without neurogenic claudication Take 1 tablet (10 mg) by mouth 3 (three) times a day as needed for muscle spasms 90 tablet 3 08/04/2024 Active DULoxetine 60 mg delayed release oral capsule (20 sources) Serotonin and Norepinephrine Reuptake Inhibitor Start: 10-28-2023 End: 08-04-2025 take 1 capsule by mouth once daily Duloxetine 60 mg capsule,delayed release(DR/EC) Active 60 MG PO Daily July 21, 2025 12:00am Complies with drug therapy furosemide 40 mg oral tablet (20 sources) Loop Diuretic Start: 10-28-2023 End: 08-04-2025 take 1 tablet by mouth once daily Furosemide 40 mg tablet Active 40 MG PO Daily July 21, 2025 12:00am Complies with drug therapy hydroCHLOROthiazide 25 mg / losartan potassium 100 mg oral tablet (20 sources) Thiazide Diuretic, Angiotensin 2 Receptor Cintia Start: 07-27-2024 End: 07-27-2025 take 1 tablet by mouth once daily Losartan-Hydrochlor othiazide 100-25 mg tablet Active 1 TAB PO Daily July 21, 2025 12:00am Complies with drug therapy Start: 10-28-2023 End: 10-27-2024 take 1 tablet by mouth in the morning losartan-hydroCHLOROthiazide (Hyzaar) 10 0-25 MG tablet Indications: Essential hypertension, benign (CMS/HCC) Take 1 tablet by mouth in the morning. 90 tablet 3 10/28/2023 10/27/2024 Active phentermine hydrochloride 37.5 mg oral tablet (20 sources) Sympathomimetic Amine Anorectic Start: 07-21-2025 take 1 tablet by mouth once daily 30 minutes after breakfast Phentermine 37.5 mg tablet Active 37.5 MG PO Daily July 21, 2025 12:00am must administer 30 minutes before or 1-2 hours after breakfast Complies with drug therapy Start: 01-10-2025 End: 06-26-2025 take 45-49.9 tablets by mouth before mealtime phentermine (Adipex-P) 37.5 MG tablet Indications: Class 3 severe obesity due to excess calories with serious comorbidity and body mass index (BMI) of 45.0 to 49.9 in adult (CMS-HCC) Take 1 tablet (37.5 mg) by mouth in the morning. Take before meals. 30 tablet 05/27/2025 06/26/2025 Active Start: 06-02-2024 End: 08-04-2024 take 1 tablet by mouth before mealtime phentermine (Adipex-P) 37.5 MG tablet Indications: Morbid obesity due to excess calories ([facility]/HCC) Take 1 tablet (37.5 mg) by mouth in the morning. Take before meals. 30 tablet 07/01/2024 08/04/2024 Discontinued Start: 11-26-2023 End: 12-26-2023 take 1 tablet by mouth in the morning phentermine (Adipex-P) 37.5 MG tablet Indications: Morbid obesity ([facility]) Take 1 tablet (37.5 mg) by mouth in the morning. 30 tablet 0 11/26/2023 12/26/2023 Active potassium chloride 20 meq extended release oral tablet (20 sources) Start: 10-28-2023 End: 08-04-2025 take 1 tablet by mouth once daily Potassium Chloride 20 mEq tablet extended release Active 20 MEQ PO Daily July 21, 2025 12:00am Complies with drug therapy predniSONE 50 mg oral tablet (2 sources) Start: 08-04-2024 End: 08-10-2024 take 1 tablet by mouth once daily predniSONE (Deltasone) 50 MG tablet Indications: Acute bronchitis due to other specified organisms Take 1 tablet (50 mg) by mouth Daily for 6 days 6 tablet 08/04/2024 08/10/2024 Active Umeclidinium-Vilant jaimee (20 sources) Anticholinergic, beta2-Adrenergic Agonist Start: 07-21-2025 Umeclidinium-Vilan terol 62.5-25 mcg/actuation blister with device Active 1 INH INHALATION Daily July 21, 2025 12:00am Complies with drug therapy Start: 08-04-2024 take 1 puff(s) by mo [facility] once daily Anoro Ellipta 62.5-25 MCG/ACT aerosol powder Indications: Moderate COPD (chronic obstructive pulmonary disease) ([facility]) INHALE 1 PUFF BY MOUTH DAILY 60 each 5 08/04/2024 Active Start: 07-08-2024 End: 08-16-2025 take 1 puff(s) by mouth once daily Umeclidinium-Vilanterol (Anoro Ellipta) 62.5-25 MCG/ACT aerosol powder Indications: Moderate COPD (chronic obstructive pulmonary disease) (HCC) INHALE 1 PUFF BY MOUTH ONCE DAILY 60 each 3 04/28/2025 Active Start: 10-28-2023 End: 11-08-2024 take 1 puff(s) by inhalation in the morning Umeclidinium-Vilanterol (Anoro Ellipta) 62.5-25 MCG/ACT aerosol powder Indications: Moderate COPD (chronic obstructive pulmonary disease) (CMS/HCC) Inhale 1 puff in the morning. 1 each 6 10/28/2023 11/08/2024 Active zonisamide 50 mg oral capsule (20 sources) Anti-epileptic Agent Start: 07-21-2025 take 1 capsule by mouth once daily at bedtime Zonisamide 50 mg capsule Active 50 MG PO Daily at bedtime July 21, 2025 12:00am Complies with drug therapy Start: 07-01-2024 End: 08-04-2024 take 1 capsule [...] hypertension] Onset: 11-20-2022 10-31-2023 Chronic Nutritional deficiencies (20 sources) Vitamin D deficiency; 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: [Vitamin D deficiency, unspecified] Onset: 10-31-2023 10-31-2023 Chronic Osteoarthritis (2 sources) Osteoarthritis of left knee joint; 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: [Unilateral primary osteoarthritis, left knee] 07-22-2025 Chronic Other aftercare (1 source) Other extermination inspector (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) drug therapy; 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: [OTH RETIREMENT CURRENT DRUG THERAPY] Onset: 11-20-2022 Episodic Other aftercare (1 source) halfway (current) use of opiate analgesic; 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: [RETIREMENT CURRNT USE OPIATE ANALGES] Onset: 11-20-2022 Episodic Other bone disease and musculoskeletal deformities (20 sources) Osteopenia; 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: [Other specified disorders of bone density and structure, right thigh] Onset: 10-31-2023 10-31-2023 Episodic Other injuries and conditions due to external causes (19 sources) Unspecified injury of other specified muscles, fascia and tendons at wrist and hand level, right hand, initial encounter; 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: [Elbow, forearm, and wrist injury] Onset: 06-02-2024 06-02-2024 Episodic Other lower respiratory disease (2 sources) Shortness of breath; 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: [SHORTNESS OF BREATH] Onset: 11-10-2022 Episodic Other nutritional; endocrine; and metabolic disorders (12 sources) Morbid obesity; 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: [Morbid (severe) obesity due to excess calories] Onset: 10-31-2023 10-31-2023 Chronic Other nutritional; endocrine; and metabolic disorders (20 sources) Severe obesity; 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: [Class 3 severe obesity due to excess calories with serious comorbidity and body mass index (BMI) of 45.0 to 49.9 in adult ([facility])] Onset: 10-31-2023 01-10-2025 Chronic Other screening for suspected conditions (not mental disorders or infectious disease) (1 source) Encounter for screening mammogram for malignant neoplasm of breast; 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: [ENC SCR MAMMO MALIG NEOPLASM BREAST] Onset: 02-01-2023 Episodic Pneumonia (except that caused by tuberculosis or sexually transmitted disease) (1 source) Pneumonia, unspecified organism; 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: [PNEUMONIA UNSPECIFIED ORGANISM] Onset: 11-20-2022 Episodic Residual codes; unclassified (20 sources) Obstructive sleep apnea syndrome; 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: [Obstructive sleep apnea (adult) (pediatric)] Onset: 10-31-2023 10-31-2023 Chronic Residual codes; unclassified (1 source) Obstructive sleep apnea of adult; 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: [Obstructive sleep apnea (adult) (pediatric)] 07-21-2025 Chronic Residual codes; unclassified (1 source) Family history of malignant neoplasm of digestive organs; 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: [[facility] HX MAL NEOPLASM DIGESTIV ORGN] Onset: 02-01-2023 Episodic Residual [...] UNSPECIFIED] Onset: 11-20-2022 Episodic Residual codes; unclassified (20 sources) Edema of lower extremity; 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: [Localized edema] Onset: 10-31-2023 10-31-2023 Episodic Respiratory failure; insufficiency; arrest (adult) (1 source) Acute respiratory failure with hypoxia; 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: [ACUTE RESPIRATORY FAIL W/HYPOXIA] Onset: 11-20-2022 Episodic Spondylosis; intervertebral disc disorders; other back problems (3 sources) Degeneration of lumbar intervertebral disc; 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: [Other intervertebral disc degeneration, lumbar region] 08-04-2024 Chronic Spondylosis; intervertebral disc disorders; other back problems (20 sources) Degenerative lumbar spinal stenosis; 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: [Spinal stenosis, lumbar region without neurogenic claudication] Onset: 10-31-2023 10-31-2023 Episodic Substance-related disorders (17 sources) Nicotine dependence, cigarettes, uncomplicated; 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: [Cigarette smoker ] Onset: 11-20-2022 01-10-2025 Chronic Unclassified (1 source) CONTACT W/AND (SUSP) EXPOS COVID-19; 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: [CONTACT W/AND (SUSP) EXPOS COVID-19] Onset: 11-20-2022 Unclassified (1 source) Low back pain, unspecified; 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: [Low back pain, unspecified] Onset: 12-10-2023 Past or Other Problems Problem Classification Problem Date Documented Da te Episodic/Chronic Acute bronchitis (16 sources) Acute infective bronchitis; 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: [Acute bronchitis due to other specified organisms] Onset: 08-04-2024 Resolved: 01-10-2025 08-04-2024 Episodic Other and unspecified benign neoplasm (20 sources) History of polyp of colon; 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: [Personal history of colonic polyps] Onset: 10-31-2023 10-31-2023 Episodic Results Test Name Value Interpretation Reference Range Facility ALL CBC WITH AUTO DIFFon BASOPHILS ABSOLUTE AUTO 0.1 [facility] Basophils/100 WBC (Bld) 0.7 % 0.2 - 2.0 % [facility] Eosin[facility]/100 WBC (Bld) 4.2 % 0.9 - 7.0 % [facility] Erythrocyte distribution width (RBC) [Ratio] 12.8 % 11.0 - 15.0 % [facility] Hematocrit (Bld) [Volume fraction] 40.5 % 36.0 - 48.0 % [facility] Hemoglobin (Bld) [Mass/Vol] 13.3 g/dL 12.0 - 16.0 g/dL [facility] IMMATURE GRANULOCYTES ABS AUTO 0.02 [facility] Immature granulocytes/100 WBC (Bld) 0.2 % 0.0 - 0.5 % [facility] LYMPHOCYTES ABSOLUTE AUTO 1.9 [facility] Lymphocytes/100 WBC (Bld) 22.4 % 20.5 - 60.0 % [facility] MCH (RBC) [Entitic mass] 29.6 pg 26.7 - 34.0 pg [facility] MCHC (RBC) [Mass/Vol] 32.8 g/dL 29.9 - 35.2 g/dL [facility] MCV (RBC) [Entitic vol] 90 fL 81.0 - 99.0 fL [facility] MONOCYTES ABSOLUTE AUTO 0.6 [facility] Monocytes/100 WBC (Bld) 7.4 % 1.7 - 12.0 % [facility] NEUTROPHILS ABSOLUTE AUTO 5.6 [facility] Neutrophils/100 WBC (Bld) 65.1 % 43.0 - 75.0 % [facility] Platelet mean volume (Bld) [Entitic vol] 9.6 fL 9.5 - 13.5 fL [facility] TBH EO # 0.4 [facility] PLT 277 [facility] RBC 4.5 [facility] WBC 8.6 [facility] XR lumbar spine 6V w bending on 12-10-2023 XR lumbar spine 6V w bending [facility] [place] [address] XRay Report Signed Patient: Lawrence Harrison MR#: [id number] 8 : 1965 Acct:[id number] Age/Sex: 58 / F ADM Date: 12/10/23 Loc: XD Room: Type: [facility] Attending Dr: Lakisha Shipman NP-C Copies to: BERNICE Ceron Ordering Provider: BERNICE [...] Smith Jr., HeydiOMartell12/10/2023 3:58 PM Dictation Location: [place] [address] Transcribed By: [facility] 12/10/23 1558 Dictated By: Owen Smith Jr, DO 12/10/23 1557 Signed By: 12/10/23 1558 Normal [facility] HEMOGLOBINon 01-29-2023 Hemoglobin (Bld) [Mass/Vol] 14.6 g/dL Normal 12.0-16.0 [facility] Comment on above: Performed By: #### H GB #### [facility] [address] [place] [address] Dr. Evangelist Chicas MG MAMM SCREEN 3D MANJIT CADon 01-29-2023 MG MAMM SCREEN 3D MANJIT CAD Patient: LAWRENCE HARRISON Exam Date: 01/29/2023 : 1965 Gender:F Ordering : DR MANE LEE . Admission #: [id number] Family : Order #: [id number] CLICK HERE TO VIEW EXAM RADIOLOGY REPORT [...] cancer at age 73. LOCATION: [facility] BREAST COMPOSITION: Scattered areas fibroglandular [...] on 01/29/2023 at 09:29 Normal [facility] CBC AUTO DIFFon 11-14-2022 BASO # 0.0 103/ul Normal 0.0-0.1 [facility] Comment on above: Performed By: #### B MP #### [facility] [address] [place] [address] Dr. Evangelist Chicas Basophils/100 WBC (Bld) 0.1 % Critically low 0.2-2.0 [facility] Comment on above: Performed By: #### B MP #### [facility] [address] [address] [address] Evangelist Chicas EO # 0.0 103/ul Normal 0.0-0.7 [facility] Comment on above: Performed By: #### B MP #### [facility] [address] [place] [address] Dr. Evangelist Chicas Eosinophils/100 WBC (Bld) 0.1 % Critically low 0.9-7.0 [facility] Comment on above: Performed By: #### B MP #### [facility] [address] [place] [address] Dr. Evangelist Chicas Erythrocyte distribution width (RBC) [Ratio] 13.1 % Normal 11.0-15.0 [facility] Comment on above: Performed By: #### B MP #### [facility] [address] [place] [address] Dr. Evangelist Chicas Hematocrit (Bld) [Volume fraction] 41.4 % Normal 36.0-48.0 [facility] Comment on above: Performed By: #### B MP #### [facility] [address] [place] [address] Dr. Evangelist Chicas Hemoglobin (Bld) [Mass/Vol] 13.0 g/dL Normal 12.0-16.0 [facility] Comment on above: Performed By: #### B MP #### [facility] [address] [place] [address] Dr. Evangelist Chicas IG # 0.03 10e3/ul Normal 0.00-0.03 [facility] Comment on above: Performed By: #### B MP #### [facility] [address] [place] [address] Dr. Evangelist Chicas IG % 0.4 % Normal 0.0-0.5 [facility] Comment on above: Performed By: #### B MP #### [facility] [address] [place] [address] Dr. Evangelist Chicas LYMPH # 0.4 103/ul Critically low 1.2-3.8 [facility] Comment on above: Performed By: #### B MP #### [facility] [address] [place] [address] Dr. Evangelist Chicas Lymphocytes/100 WBC (Bld) 4.7 % Critically low 20.5-60.0 [facility] Comment on above: Performed By: #### B MP #### [facility] [address] [place] [address] Dr. Evangelist Chicas MANUAL DIFF REQ NO Normal [facility] Comment on above: Performed By: #### B MP #### [facility] [address] [place] [address] Dr. Evangelist Chicas MCH (RBC) [Entitic mass] 29.1 pg Normal 26.7-34.0 [facility] Comment on above: Performed By: #### B MP #### [facility] [address] [address] [address] Evangelist Chicas MCHC (RBC) [Mass/Vol] 31.4 g/dL Normal 29.9-35.2 [facility] Comment on above: Performed By: #### B MP #### [facility] [address] [address] [address] Evangelist Chicas MCV (RBC) [Entitic vol] 92.8 fL Normal 81.0-99.0 [facility] Comment on above: Performed By: #### B MP #### [facility] [address] [address] [address] Evangelist Chicas MONO # 0.1 103/ul Critically low 0.3-0.8 [facility] Comment on above: Performed By: #### B MP #### [facility] [address] [place] [address] Dr. Evangelist Chicas Monocytes/100 WBC (Bld) 1.8 % Normal 1.7-12.0 [facility] Comment on above: Performed By: #### B MP #### [facility] [address] [address] [address] Evangelist Chicas NEUT # 6.8 103/ul Critically high 1.4-6.5 [facility] Comment on above: Performed By: #### B MP #### [facility] [address] [place] [address] [address] Evangelist Chicas Neutrophils/100 WBC (Bld) 92.9 % Critically high 43.0-75.0 [facility] Comment on above: Performed By: #### B MP #### [facility] [address] [address] [address] Evangelist Chicas Platelet mean volume (Bld) [Entitic vol] 11.3 fL Normal 9.5-13.5 [facility] Comment on above: Performed By: #### B MP #### [facility] [address] [address] [address] Evangelist Chicas PLT 109 103/ul Critically low 150-450 [facility] Comment on above: Performed By: #### B MP #### [facility] [address] [address] [address] Evangelist Chicas RBC 4.46 106/ul Normal 4.20-5.40 [facility] Comment on above: Performed By: #### B MP #### [facility] [address] [address] [address] Evangelist Chicas WBC 7.4 103/ul Normal 4.0-11.0 [facility] Comment on above: Performed By: #### B MP #### [facility] [address] [place] [address] Dr. Evangelist Chicas PROF CHEM 8 (BAS METB)on Anion gap [Moles/Vol] 11.8 mmol/L Normal [facility] Comment on above: Performed By: #### B MP #### [facility] [address] [place] [address] Dr. Evangelist Chicas Calcium [Mass/Vol] 9.3 mg/dL Normal 8.5-10.[address] [facility] Comment on above: Performed By: #### B MP #### [facility] [address] [place] [address] Dr. Evangelist Chicas Chloride [Moles/Vol] 99 mmol/L Normal 98-107 [facility] Comment on above: Performed By: #### B MP #### [facility] [address] [place] [address] Dr. Evangelist Chicas CO2 [Moles/Vol] 31.6 mmol/L Normal 21.0-32.0 [facility] Comment on above: Performed By: #### B MP #### [facility] [address] [place] [address] Dr. Evangelist Chicas Creatinine [Mass/Vol] 0.75 mg/dL Normal 0.55-1.02 [facility] Comment on above: Performed By: #### B MP #### [facility] [address] [address] [address] Evangelist Chicas EGFR-AF BRAZILIAN >60 Normal >=60 [facility] Comment on above: Performed By: #### B MP #### [facility] [address] [place] [address] Dr. Evangelist Chicas EGFR-NON AF BRAZILIAN >60 Normal >=60 [facility] Comment on above: Performed By: #### B MP #### [facility] [address] [address] [address] Evangelist Chicas Glucose [Mass/Vol] 162 mg/dL Critically high 74-106 [facility] Comment on above: Performed By: #### B MP #### [facility] [address] [place] [address] Dr. Evangelist Chicas Potassium [Moles/Vol] 4.4 mmol/L Normal 3.5-5.1 [facility] Comment on above: Performed By: #### B MP #### [facility] [address] [place] [address] Dr. Evangelist Chicas Sodium [Moles/Vol] 138 mmol/L Normal 136-145 [facility] Comment on above: Performed By: #### B MP #### [facility] [address] [place] [address] Dr. Evangelist Chicas Urea nitrogen [Mass/Vol] 32.0 mg/dL Critically high 7.0-18.0 [facility] Comment on above: Performed By: #### B MP #### [facility] [facility] [address] [place] [address] Dr. Evangelist Chicas Urea nitrogen/Creatinin e [Mass ratio] 42.7 mg/mg Normal [facility] Comment on above: Performed By: #### B MP #### [facility] [address] [place] [address] Dr. Evangelist Chicas CBC AUTO DIFFon 11-13-2022 BASO # 0.0 103/ul Normal 0.0-0.1 [facility] Comment on above: Performed By: #### C BC #### [facility] [address] [place] [address] Dr. Evangelist Chicas Basophils/100 WBC (Bld) 0.1 % Critically low 0.2-2.0 [facility] Comment on above: Performed By: #### C BC #### [facility] [address] [place] [address] Dr. Evangelist Chicas EO # 0.0 103/ul Normal 0.0-0.7 [facility] Comment on above: Performed By: #### C BC #### [facility] [address] [place] [address] Dr. Evangelist Chicas Eosinophils/100 WBC (Bld) 0.0 % Critically low 0.9-7.0 [facility] Comment on above: Performed By: #### C BC #### [facility] [address] [place] [address] Dr. Evangelist Chicas Erythrocyte distribution width (RBC) [Ratio] 12.9 % Normal 11.0-15.0 [facility] Comment on above: Performed By: #### C BC #### [facility] [address] [place] [address] Dr. Evangelist Chicas Hematocrit (Bld) [Volume fraction] 39.0 % Normal 36.0-48.0 [facility] Comment on above: Performed By: #### C BC #### [facility] [address] [place] [address] Dr. Evangelist Chicas Hemoglobin (Bld) [Mass/Vol] 12.3 g/dL Normal 12.0-16.0 [facility] Comment on above: Performed By: #### C BC #### [facility] [address] [place] [address] Dr. Evangelist Chicas IG # 0.04 10e3/ul Critically high 0.00-0.03 [facility] Comment on above: Performed By: #### C BC #### [facility] [address] [place] [address] Dr. Evangelist Chicas IG % 0.4 % Normal 0.0-0.5 [facility] Comment on above: Performed By: #### C BC #### [facility] [address] [place] [address] Dr. Evangelist Chicas LYMPH # 0.5 103/ul Critically low 1.2-3.8 [facility] Comment on above: Performed By: #### C BC #### [facility] [address] [place] [address] Dr. Evangelist Chicas Lymphocytes/100 WBC (Bld) 4.5 % Critically low 20.5-60.0 [facility] Comment on above: Performed By: #### C BC #### [facility] [address] [place] [address] Dr. Evangelist Chicas MANUAL DIFF REQ NO Normal [facility] Comment on above: Performed By: #### C BC #### [facility] [address] [place] [address] Dr. Evangelist Chicas MCH (RBC) [Entitic mass] 29.7 pg Normal 26.7-34.0 [facility] Comment on above: Performed By: #### C BC #### [facility] [address] [place] [address] Dr. Evangelist Chicas MCHC (RBC) [Mass/Vol] 31.5 g/dL Normal 29.9-35.2 [facility] Comment on above: Performed By: #### C BC #### [facility] [address] [place] [address] Dr. Evangelist Chicas MCV (RBC) [Entitic vol] 94.2 fL Normal 81.0-99.0 [facility] Comment on above: Performed By: #### C BC #### [facility] [address] [place] [address] Dr. Evangelist Chicas MONO # 0.2 103/ul Critically low 0.3-0.8 [facility] Comment on above: Performed By: #### C BC #### [facility] [address] [place] [address] Dr. Evangelist Chicas Monocytes/100 WBC (Bld) 1.5 % Critically low 1.7-12.0 [facility] Comment on above: Performed By: #### C BC #### [facility] [address] [place] [address] Dr. Evangelist Chicas NEUT # 10.5 103/ul Critically high 1.4-6.5 [facility] Comment on above: Performed By: #### C BC #### [facility] [address] [place] [address] Dr. Evangelist Chicas Neutrophils/100 WBC (Bld) 93.5 % Critically high 43.0-75.0 [facility] Comment on above: Performed By: #### C BC #### [facility] [address] [place] [address] Dr. Evangelist Chicas Platelet mean volume (Bld) [Entitic vol] 10.4 fL Normal 9.5-13.5 [facility] Comment on above: Performed By: #### C BC #### [facility] [address] [place] [address] Dr. Evangelist Chicas PLT 169 103/ul Normal 150-450 [facility] Comment on above: Performed By: #### C BC #### [facility] [address] [place] [address] Dr. Evangelist Chicas RBC 4.14 106/ul Critically low 4.20-5.40 [facility] Comment on above: Performed By: #### C BC #### [facility] [address] [place] [address] Dr. Evangelist Chicas WBC 11.2 103/ul Critically high 4.0-11.0 [facility] Comment on above: Performed By: #### C BC #### [facility] [address] [place] [address] Dr. Evangelist Chicas CULTURE SPUTUMon 11-13-2022 CULTURE SPUTUM Culture Observations : NORMAL RESPIRATORY SHAINA. Normal [facility] Comment on above: Performed By: #### B MP #### [facility] [address] [place] [address] Dr. Evangelist Chicas PROF CHEM 8 (BAS METB)on Anion gap [Moles/Vol] 9.2 mmol/L Normal [facility] Comment on above: Performed By: #### D DIM #### [facility] [address] [place] [address] Dr. Evangelist Chicas Calcium [Mass/Vol] 9.1 mg/dL Normal 8.5-10.1 [facility] Comment on above: Performed By: #### D DIM #### [facility] [address] [place] [address] Dr. Evangelist Chicas Chloride [Moles/Vol] 100 mmol/L Normal 98-107 [facility] Comment on above: Performed By: #### D DIM #### [facility] [address] [place] [address] Dr. Evangelist Chicas CO2 [Moles/Vol] 33.8 mmol/L Critically high 21.0-32.0 [facility] Comment on above: Performed By: #### D DIM #### [facility] [address] [place] [address] Dr. Evangelist Chicas Creatinine [Mass/Vol] 0.85 mg/dL Normal 0.55-1.02 [facility] Comment on above: Performed By: #### D DIM #### [facility] [address] [place] [address] Dr. Evangelist Chicas EGFR-AF BRAZILIAN >60 Normal >=60 [facility] Comment on above: Performed By: #### D DIM #### [facility] [address] [place] [address] Dr. Evangelist Chicas EGFR-NON AF BRAZILIAN >60 Normal >=60 [facility] Comment on above: Performed By: #### D DIM #### [facility] [address] [place] [address] Dr. Evangelist Chicas Glucose [Mass/Vol] 151 mg/dL Critically high 74-106 [facility] Comment on above: Performed By: #### D DIM #### [facility] [address] [place] [address] Dr. Evangelist Chicas Potassium [Moles/Vol] 4.0 mmol/L Normal 3.5-5.1 [facility] Comment on above: Performed By: #### D DIM #### [facility] [address] [place] [address] Dr. Evangelist Chicas Sodium [Moles/Vol] 139 mmol/L Normal 136-[address] [facility] Comment on above: Performed By: #### D DIM #### [facility] [address] [place] [address] Dr. Evangelist Chicas Urea nitrogen [Mass/Vol] 29.0 mg/dL Critically high 7.0-18.0 [facility] Comment on above: Performed By: #### D DIM #### [facility] [address] [place] [address] Dr. Evangelist Chicas Urea nitrogen/Creatinin e [Mass ratio] 34.1 mg/mg Normal [facility] Comment on above: Performed By: #### D DIM #### [facility] [address] [place] [address] Dr. Evangelist Chicas CBC AUTO DIFFon 11-12-2022 BASO # 0.0 103/ul Normal 0.0-0.1 [facility] Comment on above: Performed By: #### C BC #### [facility] [address] [place] [address] Dr. Evangelist Chicas Basophils/100 WBC (Bld) 0.1 % Critically low 0.2-2.0 [facility] Comment on above: Performed By: #### C BC #### [facility] [address] [place] [address] Dr. Evangelist Chicas EO # 0.0 103/ul Normal 0.0-0.7 [facility] Comment on above: Performed By: #### C BC #### [facility] [address] [place] [address] Dr. Evangelist Chicas Eosinophils/100 WBC (Bld) 0.0 % Critically low 0.9-7.0 [facility] Comment on above: Performed By: #### C BC #### [facility] [address] [place] [address] Dr. Evangelist Chicas Erythrocyte distribution width (RBC) [Ratio] 12.8 % Normal 11.0-15.0 [facility] Comment on above: Performed By: #### C BC #### [facility] [address] [place] [address] Dr. Evangelist Chicas Hematocrit (Bld) [Volume fraction] 41.5 % Normal 36.0-48.0 [facility] Comment on above: Performed By: #### C BC #### [facility] [address] [address] [address] Evangelist Chicas Hemoglobin (Bld) [Mass/Vol] 13.0 g/dL Normal 12.0-16.0 [facility] Comment on above: Performed By: #### C BC #### [facility] [address] [address] [address] Evangelist Chicas IG # 0.04 10e3/ul Critically high 0.00-0.03 [facility] Comment on above: Performed By: #### C BC #### [facility] [address] [address] [address] Evangelist Chicas IG % 0.3 % Normal 0.0-0.5 [facility] Comment on above: Performed By: #### C BC #### [facility] [address] [place] [address] Dr. Evangelist Chicas LYMPH # 0.5 103/ul Critically low 1.2-3.8 [facility] Comment on above: Performed By: #### C BC #### [facility] [address] [place] [address] Dr. Evangelist Chicas Lymphocytes/100 WBC (Bld) 3.7 % Critically low 20.5-60.0 [facility] Comment on above: Performed By: #### C BC #### [facility] [address] [place] [address] Dr. Evangelist Chicas MANUAL DIFF REQ NO Normal [facility] Comment on above: Performed By: #### C BC #### [facility] [address] [address] [address] Evangelist Chicas MCH (RBC) [Entitic mass] 29.5 pg Normal 26.7-34.0 [facility] Comment on above: Performed By: #### C BC #### [facility] [address] [address] [address] Evangelist Chicas MCHC (RBC) [Mass/Vol] 31.3 g/dL Normal 29.9-35.2 [facility] Comment on above: Performed By: #### C BC #### [facility] [address] [address] [address] Evangelist Chicas MCV (RBC) [Entitic vol] 94.3 fL Normal 81.0-99.0 [facility] Comment on above: Performed By: #### C BC #### [facility] [address] [address] [address] Evangelist Chicas MONO # 0.2 103/ul Critically low 0.3-0.8 [facility] Comment on above: Performed By: #### C BC #### [facility] [address] [address] [address] Evangelist Chicas Monocytes/100 WBC (Bld) 1.3 % Critically low 1.7-12.0 [facility] Comment on above: Performed By: #### C BC #### [facility] [address] [place] [address] Dr. Evangelist Chicas NEUT # 12.4 103/ul Critically high 1.4-6.5 [facility] Comment on above: Performed By: #### C BC #### [facility] [address] [place] [address] Dr. Evangelist Chicas Neutrophils/100 WBC (Bld) 94.6 % Critically high 43.0-75.0 [facility] Comment on above: Performed By: #### C BC #### [facility] [address] [place] [address] Dr. Evangelist Chicas Platelet mean volume (Bld) [Entitic vol] 9.9 fL Normal 9.5-13.5 [facility] Comment on above: Performed By: #### C BC #### [facility] [address] [place] [address] Dr. Evangelist Chicas PLT 189 103/ul Normal 150-450 [facility] Comment on above: Performed By: #### C BC #### [facility] [address] [place] [address] Dr. Evangelist Chicas RBC 4.40 106/ul Normal 4.20-5.40 [facility] Comment on above: Performed By: #### C BC #### [facility] [address] [place], [place] [address] Dr. Evangelist Chicas WBC 13.1 103/ul Critically high 4.0-11.0 [facility] Comment on above: Performed By: #### C #### [facility] [address] [place], [place] [address] Dr. Evangelist Chicas ECHOCARDIO M/2D COMPLETEon 0 11-12-2022 ECHOCARDIO M/2D COMPLETE Patient: LAWRENCE HARRISON Exam Date: 11/12/2022 : 1965 Gender:F Ordering : DR MANE LEE . Admission #: [id number] Family : DR VAMSHI MORGAN . Order #: [id number] CLICK HERE TO VIEW EXAM ECHOCARDIOGRAM REPORT [...] Nayely Goncalves M.D. on 11/12/2022 at 13:56 [facility] PROF CHEM 8 (BAS B)on Anion gap [Moles/Vol] 10.2 mmol/L Normal [facility] Comment on above: Performed By: #### B MP #### [facility] [address] [address] [address] Evangelist Chicas Calcium [Mass/Vol] 9.2 mg/dL Normal 8.5-10.1 [facility] Comment on above: Performed By: #### B MP #### [facility] [address] [address] [address] Evangelist Chicas Chloride [Moles/Vol] 99 mmol/L Normal 98-107 [facility] Comment on above: Performed By: #### B MP #### [facility] [address] [address] [address] Evangelist Chicas CO2 [Moles/Vol] 31.5 mmol/L Normal 21.0-32.0 [facility] Comment on above: Performed By: #### B MP #### [facility] [address] [address] [address] Evangelist Chicas Creatinine [Mass/Vol] 0.87 mg/dL Normal 0.55-1.02 [facility] Comment on above: Performed By: #### B MP #### [facility] [address] [place] [address] Dr. Evangelist Chicas EGFR-AF BRAZILIAN >60 Normal >=60 [facility] Comment on above: Performed By: #### B MP #### [facility] [address] [address] [address] Evangelist Chicas EGFR-NON AF BRAZILIAN >60 Normal >=60 [facility] Comment on above: Performed By: #### B MP #### [facility] [address] [address] [address] Evangelist Chicas Glucose [Mass/Vol] 168 mg/dL Critically high 74-106 [facility] Comment on above: Performed By: #### B MP #### [facility] [address] [place] [address] Dr. Evangelist Chicas Potassium [Moles/Vol] 3.7 mmol/L Normal 3.5-5.1 [facility] Comment on above: Performed By: #### B MP #### [facility] [address] [address] [address] Evangelist Chicas Sodium [Moles/Vol] 137 mmol/L Normal 136-145 [facility] Comment on above: Performed By: #### B MP #### [facility] [address] [place] [address] Dr. Evangelist Chicas Urea nitrogen [Mass/Vol] 28.0 mg/dL Critically high 7.0-18.0 [facility] Comment on above: Performed By: #### B MP #### [facility] [address] [place] [address] Dr. Evangelist Chicas Urea nitrogen/Creatinin e [Mass ratio] 32.2 mg/mg Normal [facility] Comment on above: Performed By: #### B MP #### [facility] [address] [place] [address] Dr. Evangelist Chicas CBC AUTO DIFFon 11-11-2022 BASO # 0.0 103/ul Normal 0.0-0.1 [facility] Comment on above: Performed By: #### C BC #### [facility] [address] [place] [address] Dr. Evangelist Chicas Basophils/100 WBC (Bld) 0.2 % Normal 0.2-2.0 [facility] Comment on above: Performed By: #### C BC #### [facility] [address] [place] [address] Dr. Evangelist Chicas EO # 0.0 103/ul Normal 0.0-0.7 [facility] Comment on above: Performed By: #### C BC #### [facility] [address] [place] [address] Dr. Evangelist Chicas Eosinophils/100 WBC (Bld) 0.0 % Critically low 0.9-7.0 [facility] Comment on above: Performed By: #### C BC #### [facility] [address] [place] [address] Dr. Evangelist Chicas Erythrocyte distribution width (RBC) [Ratio] 12.7 % Normal 11.0-15.0 [facility] Comment on above: Performed By: #### C BC #### [facility] [address] [place] [address] Dr. Evangelist Chicas Hematocrit (Bld) [Volume fraction] 41.7 % Normal 36.0-48.0 [facility] Comment on above: Performed By: #### C BC #### [facility] [address] [place] [address] Dr. Evangelist Chicas Hemoglobin (Bld) [Mass/Vol] 13.0 g/dL Normal 12.0-16.0 [facility] Comment on above: Performed By: #### C BC #### [facility] [address] [place] [address] Dr. Evangelist Chicas IG # 0.03 10e3/ul Normal 0.00-0.03 [facility] Comment on above: Performed By: #### C BC #### [facility] [address] [place] [address] Dr. Evangelist Chicas IG % 0.5 % Normal 0.0-0.5 [facility] Comment on above: Performed By: #### C BC #### [facility] [address] [place] [address] Dr. Evangelist Chicas LYMPH # 0.4 103/ul Critically low 1.2-3.8 [facility] Comment on above: Performed By: #### C BC #### [facility] [address] [place] [address] Dr. Evangelist Chicas Lymphocytes/100 WBC (Bld) 5.8 % Critically low 20.5-60.0 [facility] Comment on above: Performed By: #### C BC #### [facility] [address] [place] [address] Dr. Evangelist Chicas MANUAL DIFF REQ NO Normal [facility] Comment on above: Performed By: #### C BC #### [facility] [address] [place] [address] Dr. Evangelist Chicas MCH (RBC) [Entitic mass] 29.3 pg Normal 26.7-34.0 [facility] Comment on above: Performed By: #### C BC #### [facility] [address] [address] [address] Evangelist Chicas MCHC (RBC) [Mass/Vol] 31.2 g/dL Normal 29.9-35.2 [facility] Comment on above: Performed By: #### C BC #### [facility] [address] [address] [address] Evangelist Chicas MCV (RBC) [Entitic vol] 93.9 fL Normal 81.0-99.0 [facility] Comment on above: Performed By: #### C BC #### [facility] [address] [address] [address] Evangelist Chicas MONO # 0.0 103/ul Critically low 0.3-0.8 [facility] Comment on above: Performed By: #### C BC #### [facility] [address] [place] [address] Dr. Evangelist Chicas Monocytes/100 WBC (Bld) 0.6 % Critically low 1.7-12.0 [facility] Comment on above: Performed By: #### C BC #### [facility] [address] [address] [address] Evangelist Chicas NEUT # 6.0 103/ul Normal 1.4-6.5 [facility] Comment on above: Performed By: #### C BC #### [facility] [address] [place] [address] Dr. Evangelist Chicas Neutrophils/100 WBC (Bld) 92.9 % Critically high 43.0-75.0 [facility] Comment on above: Performed By: #### C BC #### [facility] [address] [place] [address] Dr. Evangelist Chicas Platelet mean volume (Bld) [Entitic vol] 10.8 fL Normal 9.5-13.5 [facility] Comment on above: Performed By: #### C BC #### [facility] [address] [place] [address] Dr. Evangelist Chicas PLT 141 103/ul Critically low 150-450 [facility] Comment on above: Performed By: #### C BC #### [facility] [address] [place] [address] Dr. Evangelist Chicas RBC 4.44 106/ul Normal 4.20-5.40 [facility] Comment on above: Performed By: #### C BC #### [facility] [address] [place] [address] Dr. Evangelist Chicas WBC 6.4 103/ul Normal 4.0-11.0 [facility] Comment on above: Performed By: #### C BC #### [facility] [address] [place] [address] Dr. Evangelist Chicas PROF CHEM 8 (BAS METB)on Anion gap [Moles/Vol] 7.5 mmol/L Normal [facility] Comment on above: Performed By: #### B MP #### [facility] [address] [place] [address] Dr. Evangelist Chicas Calcium [Mass/Vol] 8.9 mg/dL Normal 8.5-10.1 [facility] Comment on above: Performed By: #### B MP #### [facility] [address] [place] [address] Dr. Evangelist Chicas Chloride [Moles/Vol] 100 mmol/L Normal 98-107 [facility] Comment on above: Performed By: #### B MP #### [facility] [address] [place] [address] Dr. Evangelist Chcias CO2 [Moles/Vol] 33.9 mmol/L Critically high 21.0-32.0 [facility] Comment on above: Performed By: #### B MP #### [facility] [address] [place] [address] Dr. Evangelist Chicas Creatinine [Mass/Vol] 0.65 mg/dL Normal 0.55-1.02 [facility] Comment on above: Performed By: #### B MP #### [facility] [address] [place] [address] Dr. Evangelist Chicas EGFR-AF BRAZILIAN >60 Normal >=60 [facility] Comment on above: Performed By: #### B MP #### [facility] [address] [place] [address] Dr. Evangelist Chicas EGFR-NON AF BRAZILIAN >60 Normal >=60 [facility] Comment on above: Performed By: #### B MP #### [facility] [address] [address] [address] Evangelist Chicas Glucose [Mass/Vol] 152 mg/dL Critically high 74-106 [facility] Comment on above: Performed By: #### B MP #### [facility] [address] [address] [address] Evangelist Chicas Potassium [Moles/Vol] 4.4 mmol/L Normal 3.5-5.1 [facility] Comment on above: Performed By: #### B MP #### [facility] [address] [place] [address] Dr. Evangelist Chicas Sodium [Moles/Vol] 137 mmol/L Normal 136-145 [facility] Comment on above: Performed By: #### B MP #### [facility] [address] [place] [address] Dr. Evangelist Chicas Urea nitrogen [Mass/Vol] 16.0 mg/dL Normal 7.0-18.0 [facility] Comment on above: Performed By: #### B MP #### [facility] [address] [place] [address] Dr. Evangelist Chicas Urea nitrogen/Creatinin e [Mass ratio] 24.6 mg/mg Normal [facility] Comment on above: Performed By: #### B MP #### [facility] [address] [place] [address] Dr. Evangelist Chicas BNPon 11-10-2022 Natriuretic peptide B (Bld) [Mass/Vol] 330.0 pg/mL Normal <=900.0 [facility] Comment on above: Performed By: #### B MP #### [facility] [address] [place] [address] Dr. Evangelist Chicas CARDIAC LIS ADMITon 023 CK [Catalytic activity/Vol] 40 U/L Normal 26-192 [facility] Comment on above: Performed By: #### D DIM #### [facility] [address] [place] [address] Dr. Evangelist Chicas CK.MB [Mass/Vol] 1.06 ng/mL Normal <=3.60 [facility] Comment on above: Performed By: #### D DIM #### [facility] [address] [place] [address] Dr. Evangelist Chicas HSTROP 21.6 pg/mL Normal 4.0-51.3 [facility] Comment on above: Result Comment: CUT- OFF POINTS HAVE BEEN ESTABLISHED BASED ON THE FOURTH UNIVERSAL DEFINITIONS OF MYOCARDIAL INFARCTION. THE UPPER REFERENCE LIMIT (URL) OF TROPONIN, DEFINED THE 99TH PERCENTILE OF cTnI DISTRIBUTION IN A REFERENCE POPULATION, HAS BEEN CONFIRMED THE DECISION THRESHOLD FOR [place] DIAGNOSIS. Performed By: #### D DIM #### [facility] [address] [place] [address] Dr. Evangelist Chicas VANNA 41 ng/mL Normal 9-82 [facility] Comment on above: Performed By: #### D DIM #### [facility] [address] [place] [address] Dr. Evangelist Chicas CBC AUTO DIFFon 11-10-2022 BASO # 0.1 103/ul Normal 0.0-0.1 [facility] Comment on above: Performed By: #### B MP #### [facility] [address] [place] [address] Dr. Evangelist Chicas Basophils/100 WBC (Bld) 0.7 % Normal 0.2-2.0 [facility] Comment on above: Performed By: #### B MP #### [facility] [address] [place] [address] Dr. Evangelist Chicas EO # 0.1 103/ul Normal 0.0-0.7 [facility] Comment on above: Performed By: #### B MP #### [facility] [address] [place] [address] Dr. Evangelist Chicas Eosinophils/100 WBC (Bld) 1.1 % Normal 0.9-7.0 [facility] Comment on above: Performed By: #### B MP #### [facility] [address] [address] [address] Evangelist Chicas Erythrocyte distribution width (RBC) [Ratio] 12.8 % Normal 11.0-15.0 [facility] Comment on above: Performed By: #### B MP #### [facility] [address] [place] [address] Dr. Evangelist Chicas Hematocrit (Bld) [Volume fraction] 41.1 % Normal 36.0-48.0 [facility] Comment on above: Performed By: #### B MP #### [facility] [address] [place] [address] Dr. Evangelist Cihcas Hemoglobin (Bld) [Mass/Vol] 13.2 g/dL Normal 12.0-16.0 [facility] Comment on above: Performed By: #### B MP #### [facility] [address] [place] [address] Dr. Evangelist Chicas IG # 0.02 10e3/ul Normal 0.00-0.03 [facility] Comment on above: Performed By: #### B MP #### [facility] [address] [place] [address] Dr. Evangelist Chicas IG % 0.3 % Normal 0.0-0.5 [facility] Comment on above: Performed By: #### B MP #### [facility] [address] [place] [address] Dr. Evangelist Chicas LYMPH # 0.7 103/ul Critically low 1.2-3.8 [facility] Comment on above: Performed By: #### B MP #### [facility] [address] [place] [address] Dr. Evangelist Chicas Lymphocytes/100 WBC (Bld) 9.5 % Critically low 20.5-60.0 [facility] Comment on above: Performed By: #### B MP #### [facility] [address] [place] [address] Dr. Evangelist Chicas MANUAL DIFF REQ NO Normal [facility] Comment on above: Performed By: #### B MP #### [facility] [address] [place] [address] Dr. Evangelist Chicas MCH (RBC) [Entitic mass] 29.6 pg Normal 26.7-34.0 [facility] Comment on above: Performed By: #### B MP #### [facility] [address] [place] [address] Dr. Evangelist Chicas MCHC (RBC) [Mass/Vol] 32.1 g/dL Normal 29.9-35.2 [facility] Comment on above: Performed By: #### B MP #### [facility] [address] [place] [address] Dr. Evangelist Chicas MCV (RBC) [Entitic vol] 92.2 fL Normal 81.0-99.0 [facility] Comment on above: Performed By: #### B MP #### [facility] [address] [place] [address] Dr. Evangelist Chicas MONO # 0.6 103/ul Normal 0.3-0.8 [facility] Comment on above: Performed By: #### B MP #### [facility] [address] [place] [address] Dr. Evangelist Chicas Monocytes/100 WBC (Bld) 8.1 % Normal 1.7-12.0 [facility] Comment on above: Performed By: #### B MP #### [facility] [address] [place] [address] Dr. Evangelist Chicas NEUT # 6.1 103/ul Normal 1.4-6.5 [facility] Comment on above: Performed By: #### B MP #### [facility] [address] [place] [address] Dr. Evangelist Chicas Neutrophils/100 WBC (Bld) 80.3 % Critically high 43.0-75.0 [facility] Comment on above: Performed By: #### B MP #### [facility] [address] [place] [address] Dr. Evangelist Chicas Platelet mean volume (Bld) [Entitic vol] 9.8 fL Normal 9.5-13.5 [facility] Comment on above: Performed By: #### B MP #### [facility] [address] [place] [address] Dr. Evangelist Chicas PLT 180 103/ul Normal 150-450 [facility] Comment on above: Performed By: #### B MP #### [facility] [address] [address] [address] Evangelist Chicas RBC 4.46 106/ul Normal 4.20-5.40 [facility] Comment on above: Performed By: #### B MP #### [facility] [address] [place], [place] [address] Dr. Evangelist Chicas WBC 7.6 103/ul Normal 4.0-11.0 [facility] Comment on above: Performed By: #### B MP #### [facility] [address] [id number] [address] Evangelist Chicas CTA CHEST WO W [...] DEL ENRIQUE Date: 2022-11-10 17:30 Normal [facility] Covid-19 PCR (CVDTBH)on SARS-CoV-2 (COVID-19) RNA SHENG+probe Ql (Unsp spec) Not detected Normal NOT DETECTED [facility] Comment on above: Result Comment: [...] for this test is supported by the [place] of [employer] and Human Service's declaration that [...] Performed By: #### B MP #### [facility] [address] [place] [address] Dr. Evangelist Chicas D-DIMERon 11-10-2022 D-DIMER 0.63 mg/L FEU Critically high <=0.[address] [facility] Comment on above: Performed By: #### D DIM #### [facility] [address] [place] [address] Dr. Evangelist Chicas D-DIMER COMMENTS SEE BELOW Normal [facility] Comment on above: Result Comment: Incr eases [...] Performed By: #### D DIM #### [facility] [address] [place] [address] Dr. Evangelist Chicas ER URINE PROFILEon 3 Bilirubin Ql (U) Negative Normal NEGATIVE [facility] Comment on above: Performed By: #### U MICRO, ERUR #### [facility] [address] [address] [address] Evangelist Chicas Clarity (U) CLEAR Normal CLEAR [facility] Comment on above: Performed By: #### U MICRO, ERUR #### [facility] [address] [address] [address] Evangelist Chicas Color (U) LT. YELLOW Normal YELLOW [facility] Comment on above: Performed By: #### U MICRO, ERUR #### [facility] [address] [address] [address] Evangelist NURD A micrscopic examination will be performed if indicated. Normal [facility] Comment on above: Performed By: #### U MICRO, ERUR #### [facility] [address] [place] [address] Dr. Evangelist Chicas Glucose Ql (U) Negative Normal NEGATIVE [facility] Comment on above: Performed By: #### U MICRO, ERUR #### [facility] [address] [address] [address] Evangelist Chicas Hemoglobin Ql (U) TRACE-INTACT Abnormal NEGATIVE [facility] Comment on above: Performed By: #### U MICRO, ERUR #### [facility] [address] [place] [address] Dr. Evangelist Chicas Ketones Ql (U) Negative Normal NEGATIVE [facility] Comment on above: Performed By: #### U MICRO, ERUR #### [facility] [address] [address] [address] Evangelist Chicas LEUKOCYTES Negative Normal NEGATIVE [facility] Comment on above: Performed By: #### U MICRO, ERUR #### [facility] [address] [address] [address] Evangelist Chicas Nitrite Ql (U) Negative Normal NEGATIVE [facility] Comment on above: Performed By: #### U MICRO, ERUR #### [facility] [address] [address] [address] Evangelist Chicas pH (U) 6.0 [pH] Normal 5-9 [facility] Comment on above: Performed By: #### U MICRO, ERUR #### [facility] [address] [place] [address] Dr. Evangelist Chicas SPEC GRAVITY 1.010 Normal 1.005-<=1.025 [facility] Comment on above: Performed By: #### U MICRO, ERUR #### [facility] [address] [place] [address] Dr. Evangelist Chicas UA PROTEIN Negative Normal NEGATIVE/ TRACE [facility] Comment on above: Performed By: #### U MICRO, ERUR #### [facility] [address] [place] [address] Dr. Evangelist Chicas UR MICRO IND INDICATED Normal [facility] Comment on above: Performed By: #### U MICRO, ERUR #### [facility] [address] [place] [address] Dr. Evangelist Chicas Urobilinogen Qn (U) 0.2 {Amalia'U}/dL Normal 0.2 - 1.0 [facility] Comment on above: Performed By: #### U MICRO, ERUR #### [facility] [address] [place] [address] Dr. Evangelist Chicas INFLUENZA A AND B AGon 11-10 INFLUANEGH SEE BELOW Normal [facility] Comment on above: Result Comment: Nega tive for Flu A protein angiten. Infection due to Flu A cannot be ruled out. Flu A angiten in the sample may be below the detection limit of the test. Performed By: #### D DIM #### [facility] [address] [place] [address] Dr. Evangelist Chicas INFLUBNEGH SEE BELOW Normal [facility] Comment on above: Result Comment: Nega tive for Flu B protein antigen. Infection due to Flu B cannot be ruled out. Flu B antigen in the sample may be below the detection limit of the test. Performed By: #### D DIM #### [facility] [address] [place] [address] Dr. Evangelist Chicas INFLUENZA A AG Negative Normal NEGATIVE SEE COMMENT [facility] Comment on above: Performed By: #### D DIM #### [facility] [address] [address] [address] Evangelist Chicas INFLUENZA B AG Negative Normal NEGATIVE SEE COMMENT [facility] Comment on above: Performed By: #### D DIM #### [facility] [address] [address] [address] Evangelist Chicas PROF 14(COMP METB)on 023 Albumin [Mass/Vol] 3.1 g/dL Critically low 3.4-5.0 [facility] Comment on above: Performed By: #### B MP #### [facility] [address] [place] [address] Dr. Evangelist Chicas Albumin/Globulin [Mass ratio] 0.7 {ratio} Normal [facility] Comment on above: Performed By: #### B MP #### [facility] [address] [place] [address] Dr. Evangelist Chicas ALP [Catalytic activity/Vol] 108 U/L Normal 46-116 [facility] Comment on above: Performed By: #### B MP #### [facility] [address] [place] [address] Dr. Evangelist Chicas ALT [Catalytic activity/Vol] 20 U/L Normal 14-59 [facility] Comment on above: Performed By: #### B MP #### [facility] [address] [place] [address] Dr. Evangelist Chcias Anion gap [Moles/Vol] 6.0 mmol/L Normal [facility] Comment on above: Performed By: #### B MP #### [facility] [address] [place] [address] Dr. Evangelist Chicas AST [Catalytic activity/Vol] 16 U/L Normal 15-37 [facility] Comment on above: Performed By: #### B MP #### [facility] [address] [place] [address] Dr. Evangelist Chicas Bilirubin [Mass/Vol] 0.6 mg/dL Normal 0.2-1.0 [facility] Comment on above: Performed By: #### B MP #### [facility] [address] [address] [address] Evangelist Chicas Calcium [Mass/Vol] 9.1 mg/dL Normal 8.5-10.1 [facility] Comment on above: Performed By: #### B MP #### [facility] [address] [address] [address] Evangelist Chicas Chloride [Moles/Vol] 97 mmol/L Critically low 98-107 [facility] Comment on above: Performed By: #### B MP #### [facility] [address] [address] [address] Evangelist Chicas CO2 [Moles/Vol] 36.9 mmol/L Critically high 21.0-32.0 [facility] Comment on above: Performed By: #### B MP #### [facility] [address] [place] [address] Dr. Evangelist Chicas Creatinine [Mass/Vol] 0.71 mg/dL Normal 0.55-1.02 [facility] Comment on above: Performed By: #### B MP #### [facility] [address] [place] [address] Dr. Evangelist Chicas EGFR-AF BRAZILIAN >60 Normal >=60 [facility] Comment on above: Performed By: #### B MP #### [facility] [address] [place] [address] Dr. Evangelist Chicas EGFR-NON AF BRAZILIAN >60 Normal >=60 [facility] Comment on above: Performed By: #### B MP #### [facility] [address] [place] [address] Dr. Evangelist Chicas Globulin (S) [Mass/Vol] 4.4 g/dL Normal [facility] Comment on above: Performed By: #### B MP #### [facility] [address] [place] [address] Dr. Evangelist Chicas Glucose [Mass/Vol] 124 mg/dL Critically high 74-106 [facility] Comment on above: Performed By: #### B MP #### [facility] [address] [place] [address] Dr. Evangelist Chicas Potassium [Moles/Vol] 3.9 mmol/L Normal 3.5-5.1 [facility] Comment on above: Performed By: #### B MP #### [facility] [address] [place] [address] Dr. Evangelist Chicas Protein [Mass/Vol] 7.5 g/dL Normal 6.4-8.[address] [facility] Comment on above: Performed By: #### B MP #### [facility] [address] [address] [address] Evangelist Chicas Sodium [Moles/Vol] 136 mmol/L Normal 136-[address] [facility] Comment on above: Performed By: #### B MP #### [facility] [address] [place] [address] Dr. Evangelist Chicas Urea nitrogen [Mass/Vol] 17.0 mg/dL Normal 7.0-18.0 [facility] Comment on above: Performed By: #### B MP #### [facility] [address] [place] [address] Dr. Evangelist Chicas Urea nitrogen/Creatinin e [Mass ratio] 23.9 mg/mg Normal [facility] Comment on above: Performed By: #### B MP #### [facility] [address] [place] [address] Dr. Evangelist Chicas URINE MICROSCOPIC ONLYon BACTERIA NONE SEEN Normal NONE SEEN [facility] Comment on above: Performed By: #### U MICRO, ERUR #### [facility] [address] [place] [address] Dr. Evangelist Chicas Bacteria identified Cx Nom (U) NOT INDICATED Normal [facility] Comment on above: Performed By: #### U MICRO, ERUR #### [facility] [address] [place] [address] Dr. Evangelist Chicas CAST NONE SEEN Normal NONE SEEN [facility] Comment on above: Performed By: #### U MICRO, ERUR #### [facility] [address] [place] [address] Dr. Evangelist Chicas Crystals LM Nom (Urine sed) NONE SEEN Normal NONE SEEN [facility] Comment on above: Performed By: #### U MICRO, ERUR #### [facility] [address] [address] [address] Evangelist Chicas Epithelial cells LM Ql (Urine sed) FEW Abnormal NONE SEEN /RARE [facility] Comment on above: Performed By: #### U MICRO, ERUR #### [facility] [address] [address] [address] Evangelist Chicas MUCOUS NONE SEEN Normal NONE SEEN [facility] Comment on above: Performed By: #### U MICRO, ERUR #### [facility] [address] [address] [address] Evangelist Chicas RBC 0-2 Normal 0-2 [facility] Comment on above: Performed By: #### U MICRO, ERUR #### [facility] [address] [place] [address] Dr. Evangelist Chicas WBC NONE SEEN Normal NONE SEEN [facility] Comment on above: Performed By: #### U MICRO, ERUR #### [facility] [address] [address] [address] Evangelist Chicas XR CHEST 1 Von [...] JAIN Date: 2022-11-10 15:24 Normal [facility] Vital Signs Date Time Vital Sign Value Performing Clinician Facility 07-22-2025 10:06-0400 Body height 160.02 cm Mane Lee MD Work Phone: [facility] 07-22-2025 10:06-0400 Body mass index (BMI) [Ratio] 46.7 kg/m2 Mane Lee MD Work Phone: [facility] 07-22-2025 10:06-0400 Body temperature 97.1 [degF] Mane Lee MD Work Phone: [facility] 07-22-2025 10:06-0400 Body weight 119.74 kg Mane Lee MD Work Phone: [facility] 07-22-2025 10:06-0400 Diastolic blood pressure 70 mm[Hg] Mane Lee MD Work Phone: [facility] 07-22-2025 10:06-0400 Heart rate 89 /min Mane Lee MD Work Phone: [facility] 07-22-2025 10:06-0400 Respiratory rate 20 /min Mane Lee MD Work Phone: [facility] 07-22-2025 10:06-0400 SaO2% (BldA) [Mass fraction] 97 % Mane Lee MD Work Phone: [facility] 07-22-2025 10:06-0400 Systolic blood pressure 124 mm[Hg] Mane Lee MD Work Phone: [facility] 04-14-2025 10:22-0400 Body height 162.6 cm Mane Lee MD Work Phone: [facility] 04-14-2025 10:22-0400 Body mass index (BMI) [Ratio] 46.35 kg/m2 Mane Lee MD Work Phone: [facility] 04-14-2025 10:22-0400 Body temperature 97.3 [degF] Mane Lee MD Work Phone: [facility] 04-14-2025 10:22-0400 Body weight 122.47 kg Mane Lee MD Work Phone: [facility] 04-14-2025 10:22-0400 Diastolic blood pressure 74 mm[Hg] Mane Lee MD Work Phone: [facility] 04-14-2025 10:22-0400 Heart rate 87 /min Mane Lee MD Work Phone: [facility] 04-14-2025 10:22-0400 Respiratory rate 20 /min Mane Lee MD Work Phone: [facility] 04-14-2025 10:22-0400 SaO2% (BldA) [Mass fraction] 97 % Mane Lee MD Work Phone: [facility] 04-14-2025 10:22-0400 Systolic blood pressure 126 mm[Hg] Mane Lee MD Work Phone: [facility] 02-14-2025 11:30-0400 Body height 162.6 cm Mane Lee MD Work Phone: [facility] 02-14-2025 11:30-0400 Body mass index (BMI) [Ratio] 46.86 kg/m2 Mane Lee MD Work Phone: [facility] 02-14-2025 11:30-0400 Body temperature 97.81 [degF] Mane Lee MD Work Phone: [facility] 02-14-2025 11:30-0400 Body weight 123.83 kg Mane Lee MD Work Phone: [facility] 02-14-2025 11:30-0400 Diastolic blood pressure 70 mm[Hg] Mane Lee MD Work Phone: [facility] 02-14-2025 11:30-0400 Heart rate 89 /min Mane Lee MD Work Phone: [facility] 02-14-2025 11:30-0400 Respiratory rate 20 /min Mane Lee MD Work Phone: [facility] 02-14-2025 11:30-0400 SaO2% (BldA) [Mass fraction] 96 % Mane Lee MD Work Phone: [facility] 02-14-2025 11:30-0400 Systolic blood pressure 134 mm[Hg] Mane Lee MD Work Phone: [facility] 01-10-2025 10:38-0500 Body height 162.6 cm Mane Lee MD Work Phone: [facility] 01-10-2025 10:38-0500 Body mass index (BMI) [Ratio] 48.58 kg/m2 Mane Lee MD Work Phone: [facility] 01-10-2025 10:38-0500 Body temperature 97.5 [degF] Mane Lee MD Work Phone: [facility] 01-10-2025 10:38-0500 Body weight 128.37 kg Mane Lee MD Work Phone: [facility] 01-10-2025 10:38-0500 Diastolic blood pressure 68 mm[Hg] Mane Lee MD Work Phone: [facility] 01-10-2025 10:38-0500 Heart rate 96 /min Mane Lee MD Work Phone: [facility] 01-10-2025 10:38-0500 Respiratory rate 22 /min Mane Lee MD Work Phone: [facility] 01-10-2025 10:38-0500 SaO2% (BldA) [Mass fraction] 98 % Mane Lee MD Work Phone: [facility] 01-10-2025 10:38-0500 Systolic blood pressure 154 mm[Hg] Mane Lee MD Work Phone: [facility] 08-04-2024 11:22-0400 Body height 160 cm Mane Lee MD Work Phone: [facility] 08-04-2024 11:22-0400 Body mass index (BMI) [Ratio] 47.12 kg/m2 Mane Lee MD Work Phone: [facility] 08-04-2024 11:22-0400 Body temperature 97.3 [degF] Mane Lee MD Work Phone: [facility] 08-04-2024 11:22-0400 Body weight 120.66 kg Mane Lee MD Work Phone: [facility] 08-04-2024 11:22-0400 Diastolic blood pressure 74 mm[Hg] Mane Lee MD Work Phone: [facility] 08-04-2024 11:22-0400 Heart rate 99 /min Mane Lee MD Work Phone: [facility] 08-04-2024 11:22-0400 Respiratory rate 22 /min Mane Lee MD Work Phone: [facility] 08-04-2024 11:22-0400 SaO2% (BldA) [Mass fraction] 96 % Mane Lee MD Work Phone: [facility] 08-04-2024 11:22-0400 Systolic blood pressure 140 mm[Hg] Mane Lee MD Work Phone: [facility] 07-01-2024 10:31-0400 Body height 160 cm Mane Lee MD Work Phone: [facility] 07-01-2024 10:31-0400 Body mass index (BMI) [Ratio] 47.65 kg/m2 Mane Lee MD Work Phone: [facility] 07-01-2024 10:31-0400 Body temperature 97.11 [degF] Mane Lee MD Work Phone: [facility] 07-01-2024 10:31-0400 Body weight 122.02 kg aMne Lee MD Work Phone: [facility] 07-01-2024 10:31-0400 Diastolic blood pressure 82 mm[Hg] Mane Lee MD Work Phone: [facility] 07-01-2024 10:31-0400 Heart rate 90 /min Mane Lee MD Work Phone: [facility] 07-01-2024 10:31-0400 Respiratory rate 22 /min Mane Lee MD Work Phone: [facility] 07-01-2024 10:31-0400 SaO2% (BldA) [Mass fraction] 97 % Mane Lee MD Work Phone: [facility] 07-01-2024 10:31-0400 Systolic blood pressure 130 mm[Hg] Mane Lee MD Work Phone: [facility] 12-23-2023 13:24-0500 Body height 160 cm Mane Lee MD Work Phone: [facility] 12-23-2023 13:24-0500 Body mass index (BMI) [Ratio] 49.25 kg/m2 Mane Lee MD Work Phone: [facility] 12-23-2023 13:24-0500 Body temperature 97.3 [degF] Mane Lee MD Work Phone: [facility] 12-23-2023 13:24-0500 Body weight 126.1 kg Mane Lee MD Work Phone: [facility] 12-23-2023 13:24-0500 Diastolic blood pressure 80 mm[Hg] Mane Lee MD Work Phone: [facility] 12-23-2023 13:24-0500 Heart rate 96 /min Mane Lee MD Work Phone: [facility] 12-23-2023 13:24-0500 SaO2% (BldA) [Mass fraction] 96 % Mane Lee MD Work Phone: [facility] [facility] 12-23-2023 13:24-0500 Systolic blood pressure 140 mm[Hg] Mane Lee MD Work Phone: [facility] Healthcare Encounters Encounter Date Encounter Type Care Provider Facility Start: 07-22-2025 End: 07-22-2025 ambulatory Mane Lee MD Work Phone: [facility] Work Phone: Start: 07-22-2025 End: 07-22-2025 Patient encounter procedure Mane Lee MD -[facility] Work Phone: Start: 05-27-2025 End: 05-27-2025 Refill Mane Lee MD Work Phone: [facility] Comment on above: Class 3 severe obesi ty due to excess calories with serious comorbidity and body mass index (BMI) of 45.0 to 49.9 in adult (CMS-HCC) Start: 04-14-2025 End: 04-14-2025 Bamboo flowsheet Mane Lee MD Work Phone: [facility] Start: 04-14-2025 End: 04-14-2025 Bamboo flowsheet Mane Lee MD Work Phone: [facility] Start: 04-14-2025 End: 04-14-2025 Office outpatient visit 25 minutes Mane Lee MD Work Phone: [facility] Comment on above: Essential hypertensi on, benign (CMS/HCC) (Primary Dx); Chronic obstructive pulmonary disease, unspecified COPD type (CMS/HCC); Leg edema; Class 3 severe obesity due to excess calories with serious comorbidity and body mass index (BMI) of 45.0 to 49.9 in adult Start: 04-14-2025 End: 04-14-2025 ambulatory MANE LEE Not Available Start: 03-22-2025 End: 03-22-2025 Refill Mane Lee MD Work Phone: [facility] Comment on above: Class 3 severe obesi ty due to excess calories with serious comorbidity and body mass index (BMI) of 45.0 to 49.9 in adult Start: 02-14-2025 End: 02-14-2025 Bamboo flowsheet Mane Lee MD Work Phone: [facility] Start: 02-14-2025 End: 02-14-2025 Bamboo flowsheet Mane Lee MD Work Phone: [facility] Start: 02-14-2025 End: 02-14-2025 Office outpatient visit 25 minutes Mane Lee MD Work Phone: [facility] Comment on above: Essential hypertensi on, benign (CMS/HCC) (Primary Dx); Chronic obstructive pulmonary disease, unspecified COPD type (CMS/HCC); Leg edema; Class 3 severe obesity due to excess calories with serious comorbidity and body mass index (BMI) of 45.0 to 49.9 in adult Start: 02-14-2025 End: 02-14-2025 ambulatory MANE LEE Not Available Start: 01-12-2025 End: 01-12-2025 Clinisync Result Encounter Mane Lee MD Work Phone: [facility] External Department Unsolicited Start: 01-12-2025 End: 01-12-2025 Clinisync Result Encounter Mane Lee MD Work Phone: [facility] External Department Unsolicited Start: 01-10-2025 End: 01-10-2025 Bamboo flowsheet Mane Lee MD Work Phone: [facility] Start: 01-10-2025 End: 01-10-2025 Bamboo flowsheet Mane Lee MD Work Phone: [facility] Start: 01-10-2025 End: 01-10-2025 Patient encounter procedure Mane Lee MD Work Phone: [facility] Healthcare Start: 01-10-2025 End: 01-10-2025 Periodic preventive med est patient 40-64yrs Mane Lee MD Work Phone: [facility] Comment on above: Annual [...] [facility] Start: 08-04-2024 End: 08-04-2024 Bamboo flowsheet Mane Lee MD Work Phone: [facility] Start: 08-04-2024 End: 08-04-2024 ambulatory MANE LEE Not Available Start: 08-04-2024 End: 08-04-2024 Office outpatient visit 15 minutes Mane Lee MD Work Phone: [facility] Comment on above: Acute bronchitis [...] 03-22-2024 End: 03-23-2024 ambulatory Corine Frye MD Facility:[facility] Start: 01-26-2024 End: 01-27-2024 ambulatory Corine Frye MD Facility:[facility] Start: 12-29-2023 End: 12-30-2023 ambulatory Corine Frye MD Facility:[facility] Start: 12-23-2023 Bamboo flowsheet Mane Lee MD Work Phone: [facility] Start: 12-23-2023 Bamboo flowsheet Mane [...] Start: 12-10-2023 End: 12-10-2023 ambulatory Lakisha Shipman Facility:[facility] Start: 12-10-2023 End: 12-10-2023 ambulatory MD Mane Lee Work Phone: [facility] Work Phone: Start: 12-10-2023 End: 12-10-2023 Patient encounter procedure MD Mane Lee Work Phone: [facility] Work Phone: Start: 08-25-2023 End: 08-26-2023 ambulatory Corine Frye MD Facility:[facility] Start: 01-29-2023 End: 01-30-[address] MANE [...] 05-20-2022 Colonoscopy Mane sprague MD Work Phone: History of decompres kary of median nerve History of carpal tunnel release Mane Lee MD Work Phone: Plan of Treatment Date Care Activity Detail Author Start: 05-20-2032 Screening for malign ant neoplasm of colon [facility] Start: 07-22-2025 End: 07-22-2025 Patient encounter procedure 07/22/2025 10:00 AM EDT Office Visit [facility] [address] [place] [phone] Mane Lee MD [address] [place] [phone] [facility] Start: 07-11-2025 Influenza vaccination Influenza Vacc ine (#1) [facility] Start: 06-25-2025 Screening for malign ant neoplasm of breast Mammogram [facility] Start: 04-14-2025 End: 04-14-2025 Patient encounter procedure 04/14/2025 10:15 AM EDT Office Visit [facility] [address] [place] [address] Mane Lee MD [address] [place] [phone] [facility] Start: 04-12-2025 End: 04-12-2025 Patient encounter procedure 04/12/2025 10:30 AM EDT Office Visit [facility] [address] [place] [phone] Mane Lee MD [address] [place] [address] [facility] Start: 02-14-2025 End: 02-14-2025 Patient encounter procedure [facility] Comment on above: Arrived Start: 01-10-2025 End: 01-10-2026 Basic metabolic 1998 panel - Serum or Plasma Basic metabolic panel Lab Routine Annual physical exam Expected: 01/10/2025 (Approximate), Expires: 01/10/2026 [facility] Comment on above: Expected: 01/10/2025 (Approximate), Expires: 01/10/2026 Start: 01-10-2025 End: 01-10-2026 CBC W Auto Differential panel - Blood CBC and differential Lab Routine Annual physical exam Expected: 01/10/2025 (Approximate), Expires: 01/10/2026 [facility] Comment on above: Expected: 01/10/2025 (Approximate), Expires: 01/10/2026 Start: 01-10-2025 End: 01-10-2026 CT Chest for screening WO contrast CT lung screening low dose Imaging Routine Cigarette smoker Expected: 01/10/2025, Expires: 01/10/2026 [facility] Comment on above: Expected: 01/10/2025 , Expires: 01/10/2026 Start: 01-10-2025 End: 01-10-2026 Hemoglobin A1c/Hemoglobin.total in Blood Hemoglobin A1c Lab Routine Annual physical exam Expected: 01/10/2025 (Approximate), Expires: 01/10/2026 [facility] Work Phone: Comment on above: Expected: 01/10/2025 (Approximate), Expires: 01/10/2026 Start: 01-10-2025 End: 01-10-2026 Hepatic function 2000 panel - Serum or Plasma Hepatic function panel Lab Routine Annual physical exam Expected: 01/10/2025 (Approximate), Expires: 01/10/2026 [facility] Comment on above: Expected: 01/10/2025 (Approximate), Expires: 01/10/2026 Start: 01-10-2025 End: 01-10-2026 Lipid 1996 panel - Serum or Plasma Lipid panel Lab Routine Annual physical exam Expected: 01/10/2025 (Approximate), Expires: 01/10/2026 [facility] Comment on above: Expected: 01/10/2025 (Approximate), Expires: 01/10/2026 Start: 01-10-2025 End: 01-10-2026 Thyrotropin [Units/volume] in Serum or Plasma TSH Lab Routine Annual physical exam Expected: 01/10/2025 (Approximate), Expires: 01/10/2026 [facility] Comment on above: Expected: 01/10/2025 (Approximate), Expires: 01/10/2026 Start: 01-10-2025 End: 01-10-2025 Patient encounter procedure [facility] Comment on above: Arrived Start: 07-11-2024 Influenza vaccination Influenza Vacc ine (#1) [facility] Start: 07-01-2024 End: 07-01-2024 Patient encounter procedure 07/01/2024 10:30 AM EDT Office Visit [facility] [address] [place] [address] Mane Lee MD [address] [place] [phone] Arrived [facility] Comment on above: Arrived Start: 02-24-2024 End: 02-24-2024 Patient encounter procedure 02/24/2024 9:00 AM EDT Office Visit [facility] [address] [place] [address] Mane Lee MD [address] [place] [phone] [facility] Start: 01-30-2024 Screening for malign ant neoplasm of breast Mammogram [facility] Start: 12-23-2023 End: 12-23-2023 Patient encounter procedure 12/23/2023 1:15 PM EST [facility] [address] [place] [address] Mane Lee MD [address] [place] [address] Arrived [facility] Comment on above: Arrived Start: 1993 Screening for malign ant neoplasm of cervix [facility] Start: 1984 Screening for malign ant neoplasm of cervix Pap Smear [facility] Start: 1963 Screening for malign ant neoplasm of colon [facility] Healthcare Immunizations Immunization Date Immunization Notes Care Provider Fa cility 11-24-2024 influenza virus vacc ine, unspecified formulation Mane Lee MD Work Phone: [facility] Healthcare 08-21-2023 influenza virus vacc ine, unspecified formulation Mane Lee MD Work Phone: [facility] Healthcare Payers Date Payer Category Payer Self-pay 2023 [facility] [employer] [id number] 2023 Unknown [id number] 2022 Unknown [id number] 1963 Unknown [id number]. 593 1963 Unknown [id number]. 593 1963 Unknown [id number] 2.16.840.1.042103.3.579.2. 196 1963 Unknown [id number] 2.16.840.1.137930.3.579.2. 196 1963 Unknown [id number] 2.16.840.1.807149.3.579.2. 196 1963 Unknown [id number] 2.16.840.1.168706.3.579.2. 196 1963 Unknown [id number] 2.16.840.1.359793.3.579.2. 1259 1963 Unknown [id number] 2.16.840.1.772165.3.579.2. 1259 1963 Unknown [id number] 2.16.840.1.116478.3.579.2. 9 1963 Unknown [id number] 2.16.840.1.410858.3.579.2. 9 1963 Unknown [id number] 2.16.840.1.024950.3.579.2. 1259 1963 Unknown [id number] 2.16.840.1.865819.3.579.2. 9 1963 Unknown [id number] 2.16.840.1.315367.3.579.2. 1259 1959 Unknown [id number] Unknown [facility] [id number] Unknown [id number]. 531 Social History Date Type Detail Facility Tobacco smoking stat [facility] Unknown if ever smoked [facility] Work Phone: Start: 1965 Sex Assigned At Female F [facility] Start: 10-31-2023 End: 07-22-2025 Tobacco smoking status NHIS Smokes tobacco daily [facility] History of tobacco use Cigarette Smoker N [facility] Start: 10-31-2023 End: 11-26-2023 Cigarettes smoked current (pack per day) - Reported 0.5 [facility] Start: 10-31-2023 Tobacco use and exposure Smoke less tobacco non-user [facility] Start: 11-26-2023 End: 04-14-2025 Humiliation, Afraid, Rape, and Kick questionnaire [HARK] [...] At Not on file [facility] Sex Female (finding) [facility] Clinical Notes 12-23-2023 to 04-14-2025 Mane Lee MD - 04/14/2025 11:08 AM Karlo Lee MD - 04/14/2025 11:08 AM Karlo Lee MD - 04/14/2025 11:08 AM Karlo Lee MD - 04/14/2025 11:08 AM EDT Note Date & Type Note Facility 04-14-2025 History of Present illness Narrative Associated Problem(s): Leg edema Edema controlled with lasix. Elevate legs PRN. Associated Problem(s): Essential hypertension, benign (CMS/HCC) BP controlled and monitor PRN. Associated Problem(s): COPD (chronic obstructive pulmonary disease) ([facility]) Breathing stable and encouraged to quit smoker. Continue inhalers. Associated Problem(s): Class 3 severe obesity due to excess calories with serious comorbidity and body mass index (BMI) of 45.0 to 49.9 in adult Patient doing well with adipex and lost [...] develop new or worsening symptoms contact office. Images from the original note were not included. Subjective Patient ID: Lawrence Harrison is a 59 y.o. female who presents for Follow-up (2m f/up ) and Fall (Fell at work last week). Follow up HTN, COPD, edema, and weight. Patient feels well today. Checking BP PRN and typically controlled. BP normal today. Taking medication daily and tolerating without side effects. COPD stable. Mild SOB and cough but no sputum. Using inhalers and helps. Symptoms worse in humidity. Using albuterol PRN and helps when needed. Not heard about CT chest. Edema controlled with medication. Mild swelling at end of day and if on feet a lot. Edema improved in am and with elevation. Taking adipex and weight down 13 pounds in 3 months. Tolerating medication without side effects except mild dry mouth. Not as hungry with medication. Smaller portions and not snacking. Increased fruits and vegetables. Tries to limit total daily calories. Increased activity and walking almost daily. Fall Pertinent negatives include no abdominal pain, nausea or vomiting. Review of Systems Respiratory: Negative for cough, [...] monitor PRN. Leg edema Edema controlled with lasix. Elevate legs PRN. COPD (chronic obstructive pulmonary disease) (CMS/HCC) Breathing stable and encouraged to quit smoker. Continue inhalers. Class 3 severe obesity due to excess calories with serious comorbidity and body mass index (BMI) of 45.0 to 49.9 in adult Patient doing well with adipex and lost [...] 37.5 MG tablet documented in this encounter [facility] 02-14-2025 History of Present illness Narrative Associated Problem(s): Leg edema Edema controlled with lasix. Elevate legs PRN. Associated Problem(s): Essential hypertension, benign (CMS/HCC) BP controlled and monitor PRN. Associated Problem(s): COPD (chronic obstructive pulmonary disease) (CMS/HCC) Breathing stable and encouraged to quit smoker. Continue inhalers. Associated Problem(s): Class 3 severe obesity due to excess calories with serious comorbidity and body mass index (BMI) of 45.0 to 49.9 in adult Patient doing well with adipex and lost [...] develop new or worsening symptoms contact office. Images from the original note were not included. Subjective Patient ID: Lawrence Harrison is a 59 y.o. female who presents for Follow-up (1 M ADIPEX F/U). Follow up HTN, COPD, edema, and weight. Patient feels well today. Checking BP PRN and typically controlled. BP normal today. Taking medication daily and tolerating without side effects. COPD stable. Mild SOB and cough but no sputum. Using inhalers and helps. Using albuterol PRN and helps when needed. Not heard about CT chest. Edema controlled with medication. Mild swelling at end of day and if on feet a lot. Edema improved in am and with elevation. Started adipex and weight down 10 pounds in first month. Tolerating medication without side effects except mild [...] monitor PRN. Leg edema Edema controlled with lasix. Elevate legs PRN. COPD (chronic obstructive pulmonary disease) (CMS/HCC) Breathing stable and encouraged to quit smoker. Continue inhalers. Class 3 severe obesity due to excess calories with serious comorbidity and body mass index (BMI) of 45.0 to 49.9 in adult Patient doing well with adipex and lost [...] develop new or worsening symptoms contact office. documented in this encounter [facility] 01-10-2025 History of Present illness Narrative Associated Problem(s): Cigarette smoker Check low dose CT chest Associated Problem(s): Essential hypertension, benign ([facility]) BP elevated today but previously controlled. Monitor PRN. Associated Problem(s): COPD (chronic obstructive pulmonary disease) ([facility]) Breathing stable and encouraged to quit smoker. Continue inhalers. Associated Problem(s): Class 3 severe obesity due to excess calories with serious comorbidity and body mass index (BMI) of 45.0 to 49.9 in adult ([facility]) Patient overweight and difficult time losing weight. [...] Items Addressed This Visit Essential hypertension, benign ([facility]) BP elevated today but previously controlled. Monitor PRN. COPD (chronic obstructive pulmonary disease) ([facility]) Breathing stable and encouraged to quit smoker. Continue inhalers. Class 3 severe obesity due to excess calories with serious comorbidity and body mass index (BMI) of 45.0 to 49.9 in adult ([facility]) Patient overweight and difficult time losing weight. [...] dose CT chest documented in this encounter [facility] 08-04-2024 History of Present illness Narrative Associated Problem(s): Acute bronchitis due [...] 50 MG tablet documented in this encounter [facility] 07-01-2024 History of Present illness Narrative Associated Problem(s): Morbid obesity due [...] exercises. Morbid obesity due to excess calories ([facility]/HCC) Patient doing well with adipex and lost [...] 37.5 MG tablet documented in this encounter [facility] 12-23-2023 History of Present illness Narrative Associated Problem(s): COPD (chronic obstructive [...] in this encounter [facility] Evaluation note No assessment inform ation available [facility] Work Phone: Evaluation note Diagnosis Essential hypertension, benign (CMS/HCC)- Primary Essential hypertension, benign Degenerative lumbar spinal stenosis Spinal stenosis of lumbar region Lumbar disc herniation with radiculopathy Displacement of lumbar intervertebral disc without myelopathy Leg edema Edema Chronic obstructive pulmonary disease, unspecified COPD type (CMS/HCC) documented in this encounter [facility] note* Diagnosis Essential hypertension, benign (CMS/HCC)- Primary Essential hypertension, benign Leg edema Edema Chronic obstructive pulmonary disease, unspecified COPD type (CMS/HCC) Degenerative lumbar spinal stenosis Spinal stenosis of lumbar region Morbid obesity due to excess calories (CMS/HCC) documented in this encounter [facility] HealthcareEvaluation note* Diagnosis Acute bronchitis due to other specified organisms- Primary Essential hypertension, benign (CMS/HCC) Essential hypertension, benign Spinal stenosis, lumbar region, without neurogenic claudication Vitamin D deficiency Degeneration of lumbar intervertebral disc Degeneration of lumbar or lumbosacral intervertebral disc Lower extremity edema Edema Moderate COPD (chronic obstructive pulmonary disease) (CMS/HCC) documented in this encounter [facility] HealthcareEvaluation note* Diagnosis Essential hypertension, benign (CMS/HCC)- Primary Essential [...] Tobacco use disorder documented in this encounter [facility] HealthcareEvaluation note* Diagnosis Essential hypertension, benign (CMS/HCC)- Primary Essential [...] (BMI) of 45.0 to 49.9 in adult Cigarette smoker Tobacco use disorder Essential hypertension, benign (CMS/HCC)- Primary Essential hypertension, benign Chronic obstructive pulmonary disease, unspecified COPD type (CMS/HCC) Leg edema Edema Class 3 severe obesity due to excess calories with serious comorbidity and body mass index (BMI) of 45.0 to 49.9 in adult documented in this encounter [facility] HealthcareEvaluation note* Diagnosis Essential hypertension, benign (CMS/HCC)- Primary Essential [...] (BMI) of 45.0 to 49.9 in adult Cigarette smoker Tobacco use disorder Essential hypertension, benign (CMS/HCC)- Primary Essential hypertension, benign Chronic obstructive pulmonary disease, unspecified COPD type (CMS/HCC) Leg edema Edema Class 3 severe obesity due to excess calories with serious comorbidity and body mass index (BMI) of 45.0 to 49.9 in adult Class 3 severe obesity due to excess calories with serious comorbidity and body mass index (BMI) of 45.0 to 49.9 in adult documented in this encounter [facility] HealthcareEvaluation note* Diagnosis Essential hypertension, benign (CMS/HCC)- Primary Essential [...] (BMI) of 45.0 to 49.9 in adult Cigarette smoker Tobacco use disorder Essential hypertension, benign (CMS/HCC)- Primary Essential hypertension, benign Chronic obstructive pulmonary disease, unspecified COPD type (CMS/HCC) Leg edema Edema Class 3 severe obesity due to excess calories with serious comorbidity and body mass index (BMI) of 45.0 to 49.9 in adult Essential hypertension, benign (CMS/HCC)- Primary Essential hypertension, benign Chronic obstructive pulmonary disease, unspecified COPD type (CMS/HCC) Leg edema Edema Class 3 severe obesity due to excess calories with serious comorbidity and body mass index (BMI) of 45.0 to 49.9 in adult documented in this encounter [facility] HealthcareEvaluation note* Diagnosis Essential hypertension, benign- Primary Essential hypertension, benign Degenerative lumbar spinal stenosis Spinal stenosis of lumbar region Lumbar disc herniation with radiculopathy Displacement of lumbar intervertebral disc without myelopathy Morbid obesity (CMS-HCC) Morbid obesity Essential hypertension, benign- Primary Essential hypertension, benign Degenerative lumbar spinal stenosis Spinal stenosis of lumbar region Leg edema Edema Morbid obesity (CMS-HCC) Morbid obesity Essential hypertension, benign- Primary Essential hypertension, benign Degenerative lumbar spinal stenosis Spinal stenosis of lumbar region Lumbar disc herniation with radiculopathy Displacement of lumbar intervertebral disc without myelopathy Leg edema Edema Chronic obstructive pulmonary disease, unspecified COPD type (HCC) Essential hypertension, benign- Primary Essential hypertension, benign Degenerative lumbar spinal stenosis Spinal stenosis of lumbar region Chronic obstructive pulmonary disease, unspecified COPD type (HCC) Leg edema Edema Morbid obesity due to excess calories ([facility]) Body mass index [BMI] 45.0-49.9, adult (Z68.42) Essential hypertension, benign- Primary Essential hypertension, benign Chronic obstructive pulmonary disease, unspecified COPD type (HCC) Degenerative lumbar spinal stenosis Spinal stenosis of lumbar region Leg edema Edema Breast cancer screening by mammogram Morbid obesity due to excess calories ([facility]) Body mass index [BMI] 45.0-49.9, adult (Z68.42) Essential hypertension, benign- Primary Essential hypertension, benign Chronic obstructive pulmonary disease, unspecified COPD type (HCC) Degenerative lumbar spinal stenosis Spinal stenosis of lumbar region Leg edema Edema Morbid obesity due to excess calories ([facility]) Injury of ulnar collateral ligament of wrist, right, initial encounter Essential hypertension, benign- Primary Essential hypertension, benign Leg edema Edema Chronic obstructive pulmonary disease, unspecified COPD type (HCC) Degenerative lumbar spinal stenosis Spinal stenosis of lumbar region Morbid obesity due to excess calories ([facility]) Annual physical exam- Primary Routine general medical examination at a health care facility Essential hypertension, benign Essential hypertension, benign Chronic obstructive pulmonary disease, unspecified COPD type (HCC) Class 3 severe obesity due to excess calories with serious comorbidity and body mass index (BMI) of 45.0 to 49.9 in adult ([facility]) Cigarette smoker Tobacco use disorder Essential hypertension, benign- Primary Essential hypertension, benign Chronic obstructive pulmonary disease, unspecified COPD type (HCC) Leg edema Edema Class 3 severe obesity due to excess calories with serious comorbidity and body mass index (BMI) of 45.0 to 49.9 in adult ([facility]) Essential hypertension, benign- Primary Essential hypertension, benign Chronic obstructive pulmonary disease, unspecified COPD type (HCC) Leg edema Edema Class 3 severe obesity due to excess calories with serious comorbidity and body mass index (BMI) of 45.0 to 49.9 in adult (CMS-HCC) Class 3 severe obesity due to excess calories with serious comorbidity and body mass index (BMI) of 45.0 to 49.9 in adult (CMS-HCC) documented in this encounter [facility] Diagnosis Onset Date Resolution Status Admit Date Benign essential HTN acute Sept 2024 9:49am Class 3 severe obesity due t o excess calories with serious comorbidity and acute July 22, 2025 9:49am COPD (chronic obstructive pulmonary disease) acute July 9:49am Degenerative lumbar spinal stenosis acute July 22, 2025 9:49am Leg edema acute July 9:49am Primary osteoarthritis of le ft knee acute July 22, 2025 9:49am [facility] Work Phone: Reason for referral (narrative)No reason for referral information available[facility] Work Phone: Summary Purpose Family History No Family History Records FoundNo Family History Records FoundNo Family History Records FoundNo Family History Records Found Advance Directives Advance Directive Response Recorded Date/ Time Advance Directives No December 10, 2023 3:29pm Advance Directive Response Recorded Date/ Time Advance Directives No December 10, 2023 4:29pm Chief Complaint and Reason for Visit Chief Complaint M54.50 Chief Complaint Admit Date Established Patient July 22, 2025 9:49am Reason for Visit Admit Date Benign essential HTN July 22 9:49am Class 3 severe obesity due t o excess calories with serious comorbidity and July 22, 2025 9:49am COPD (chronic obstructive pulmonary dise ase) July 22, 2025 9:49am Degenerative lumbar spinal stenosis Sept 2024 9:49am Leg edema July 22, 2025 9:49am Primary osteoarthritis of left knee Jul 9:49am Additional Source Comments INFORMATION SOURCE (unrecogn ized section and content) DATE CREATED AUTHOR 02/02/2023 Donna herrera DATE CREATED AUTHOR AUTHOR'S ORGANIZ ATION 02/04/2024 [facility] DATE CREATED AUTHOR AUTHOR'S ORGANIZ ATION 03/27/2024 [facility] DATE CREATED AUTHOR AUTHOR'S ORGANIZ ATION 04/15/2025 [facility] EPIC Care Teams (unrecognized sec tion and content) Team Status: Active Member Role Status Dates Mane Lee MD Primary Care Provider Active Team Status: Inactive Member Role Status Dates Mane Lee MD Primary Care Provider Active S tart: December 10, 2023 End: December 10, 2023 Lakisha Shipman , [facility] Attending Provider Active Start: December 10, 2023 End: December 10, 2023 Stone Rigger Relationship Specialty Start Date End Date Mane Lee MD [address] [place] [phone] PCP - General Family Medicine 12/23/23 Stone Rigger Relationship Specialty Start Date End Date Mane Lee MD [address] [place] [address] PCP - General Family Medicine 12/23/23 Stone Rigger Relationship Specialty Start Date End Date Mane Lee MD [address] [place] [phone] PCP - General Family Medicine 12/23/23 Mane Lee MD [address] [place] [address] PCP - [place] [employer] 01/09/24 Stone Rigger Relationship Specialty Start Date End Date Mane Lee MD [address] [place] [phone] PCP - General Family Medicine 12/23/23 Mane Lee MD [address] [place] [address] PCP - [employer] 01/09/24 Stone Rigger Relationship Specialty Start Date End Date Mane Lee MD [address] [place] [phone] PCP - General Family Medicine 12/23/23 Mane Lee MD [address] [place] [address] PCP - [employer] 01/09/24 Stone Rigger Relationship Specialty Start Date End Date Mane Lee MD [address] [place] [phone] PCP - General [facility] 12/23/23 Mane Lee MD [address] [place] [address] PCP - [employer] 01/09/24 Stone Rigger Relationship Specialty Start Date End Date Mane Lee MD [address] [place] [phone] PCP - General Family Medicine 12/23/23 Mane Lee MD [address] [place] [phone] PCP - [employer] 01/09/24 Stone Rigger Relationship Specialty Start Date End Date Mane Lee MD [address] [place] [phone] PCP - General Family Medicine 12/23/23 Mane Lee MD [address] [place] [address] PCP - [employer] 01/09/24 Stone Rigger Relationship Specialty Start Date End Date Mane Lee MD [address] [place] [phone] PCP - General Family Medicine 12/23/23 Mane Lee MD [address] [place] [address] PCP - [employer] 01/09/24 Stone Rigger Relationship Specialty Start Date End Date Mane Lee MD [address] [place] [phone] PCP - General Family Medicine 12/23/23 Mane Lee MD [address] [place] [phone] PCP - [employer] [employer] 01/09/24 Stone Rigger Relationship Specialty Start Date End Date Mane Lee MD [address] [place] [address] PCP - General Family Medicine 12/23/23 Mane Lee MD [address] [place] [address] PCP - [employer] 01/09/24 Stone Rigger Relationship Specialty Start Date End Date Mane Lee MD [address] [place] [address] PCP - General Family Medicine 12/23/23 Mane Lee MD [address] [place] [address] PCP - [facility] 01/09/24 Stone Rigger Relationship Specialty Start Date End Date Mane Lee MD [address] [place] [address] PCP - General Family Medicine 12/23/23 Mane Lee MD [address] [place] [address] PCP - [facility] [employer] 01/09/24 Team Status: Inactive Member Role Status Dates Mane Lee MD Primary Care Provider Active S tart: July 22, 2025 End: July 22, 2025 Mane Lee MD Attending Provider Active Star t: July 22, 2025 End: July 22, 2025 Goals (unrecognized section and content) Goals may be documented in a n alternate sectionGoals may be documented in an alternate section Reason for Visit (unrecogniz ed section and content) Reason Comments Follow-up 1 m Reason Comments Follow-up Chest/head congestio n, chills, Headach Reason Comments Follow-up 6m Back Pain Getting bad again Reason Comments Follow-up 1 M ADIPEX F/U Reason Onset Date Comments Med Refill 03/22/2025 Reason Comments Follow-up 2m f/up Fall Fell at work last we ek Reason Onset Date Comments Med Refill 05/27/2025 FOR RECORDS PERTAINING TO PATIENTS WHO ARE [...] BE BASED ON THE PRIMARY CLINICAL RECORDS. [employer] [facility]. provides no warranty or guarantee of the accuracy or completeness of information in this document.
== END 2025-08-02 15:43 | disposition home or self-care (01) ==
PROVIDERS: PCP Family Medicine; Visit Provider Family Medicine
DX: M25.562 Pain in left knee (principal)
CPT/HCPCS: 73564

== ENCOUNTER 2025-08-18 11:11 | Outpatient (OUT) | payer BC, SELFPAY ==
--- OUTSIDE RECORDS SUMMARY | 2025-08-18 11:13 | XMS_ITS | Continuity of Care Document ---
Author Organization [facility] Address [address] [place] [address] Phone Care Team Providers [employer] Name Role Phone Mane Kearney MD Primary Care Provider [phone] Mane Kearney MD Attending Provider [phone] Care Teams Patient Care Team Team Status: Active Member Role Status Dates Mane Kearney MD Primary Care Provider Active Visit Care Team Team Status: Inactive Member Role Status Dates Mane Kearney MD Primary Care Provider Active S tart: July 22, 2025 End: July 22, 2025 Mane Kearney MD Attending Provider Active Star t: July 22, 2025 End: July 22, 2025 Visit Care Team Team Status: Inactive Member Role Status Dates Mane Kearney MD Primary Care Provider Active S tart: August 08, 2025 End: August 08, 2025 Mane Kearney MD Attending Provider Active Star t: August 08, 2025 End: August 08, 2025 Visit Care Team Team Status: Inactive Member Role Status Dates Mane Kearney MD Primary Care Provider Active S tart: August 15, 2025 End: August 15, 2025 Mane Kearney MD Attending Provider Active Star t: August 15, 2025 End: August 15, 2025 Chief Complaint and Reason for Visit Chief Complaint Admit Date Established Patient July 22, 2025 9:49am F17.210 August 08, 2025 10:20am Knee Issues August 15, 2025 10 :57am Reason for Visit Admit Date Benign essential HTN July 22 9:49am Class 3 severe obesity due t o excess calories with serious comorbidity and July 22, 2025 9:49am COPD (chronic obstructive pulmonary dise ase) July 22, 2025 9:49am Degenerative lumbar spinal stenosis Jul 9:49am Leg edema July 22, 2025 9:49am Primary osteoarthritis of left knee Jul 9:49am Internal derangement of left knee Octobe r 2024 10:57am Reason for Referral Referring Provider Name Referring Provider Address Referring Provider Phone Referral Date Requested Appointment Date Referral Reason August 15, 2025 M23.92 - Unspecified internal derangement of left knee,M17.12 - Unilateral primary osteoarthritis, left knee Allergies, Adverse Reactions, Alerts Allergen Type Severity Reaction Last Updated Verified Status ciprofloxacin Allergy Unknown Anaphylaxis August 15, 2025 11:2 1am Yes Active Social History Smoking Status Status Start Date End Date Date of Observa tion Smokes tobacco daily (finding) August 15, 2025 11:23am Observation Status Observation Response Date of Response Legal Sex Female (finding) Sex Assigned At Female [birth year] Problems Active Problems Medical Problem Onset Date Status Class 3 severe obesity due t o excess calories with serious comorbidity and body mass index (BMI) of 45.0 to 49.9 in adult Unknown Active Leg edema Unknown Active Primary osteoarthritis of left knee Unknown Active Internal derangement of left knee Unknown Active Obstructive sleep apnea, adult Unknown A ctive Lumbar disc herniation with radiculopathy Unknow n Active Benign essential HTN Unknown Active Annual physical exam Unknown Active Inflammation of both sacroiliac joints Unknown Active Cigarette smoker Unknown Active Degenerative lumbar spinal stenosis Unknown Active COPD (chronic obstructive pulmonary disease) Unk nown Active Vitamin D deficiency Unknown Active Osteopenia of neck of right femur Unknown Active Inactive/Resolved Problems Medical Problem Onset Date Status History of carpal tunnel release Unknown Resolved Injury of ulnar collateral ligament of right wri st Unknown Resolved Medications Medication Status Dose Units Route Directions Qty Days St art Date Stop Date End Date Instructions Adherence Cholecalcif jaimee (Vitamin D3) 50 mcg (2,000 unit) capsule Active 50 MCG PO Daily 30 2024 7:03am Complies with drug therapy Amlodipine 5 mg tablet Discont inued 5 MG PO Daily 2024 12:00a m [facility] 2024 10:49 am Celecoxib 200 mg capsule Discont inued 200 MG PO Twice daily 2024 12:00a m Septe mb2024 10:49 am Cyclobenzap rine 10 mg tablet Discont inued 10 MG PO Three times daily as needed for muscle spasm 2024 12:00a m [facility] 2024 10:49 am Furosemide 40 mg tablet Active 40 MG PO Daily 2024 12:00a m Complies with drug therapy Albuterol Sulfate 2.5 mg /3 mL (0.083 %) solution for nebulizatio n Active 2.5 MG INHALA TION Every 6 hours as needed for shortness of breath or wheezing 2024 12:00a m Complies with drug therapy Phentermine 37.5 mg tablet Discont inued 37.5 MG PO Daily 2024 12:00a m [facility] 2024 10:39 am must administer 30 minutes before or 1-2 hours after breakfast Losartan-Hy drochloroth iazide 100-25 mg tablet Discont inued 1 TAB PO Daily 2024 12:00a m [facility] 2024 10:49 am Albuterol Sulfate 90 mcg/actuati on HFA aerosol inhaler Discont inued 2 PUFF INHALA TION Every 6 hours as needed 2024 12:00a m [facility] 2024 10:49 am Zonisamide 50 mg capsule Discont inued 50 MG PO Daily at bedtime 2024 12:00a m [facility] 2024 10:49 am Duloxetine 60 mg capsule,del ayed release(DR/ EC) Discont inued 60 MG PO Daily 2024 12:00a m [facility] 2024 10:49 am Cholecalcif jaimee (Vitamin D3) 50 mcg (2,000 unit) capsule Discont inued 50 MCG PO Daily 2024 12:00a m [facility] 2024 7:03a m Tracy m-Vilantero l 62.5-25 mcg/actuati on blister with device Discont inued 1 INH INHALA TION Daily 2024 12:00a m Septe mb2024 10:49 am Potassium Chloride 20 mEq tablet extended release Active 20 MEQ PO Daily 2024 12:00a m Complies with drug therapy Phentermine 37.5 mg tablet Active 37.5 MG PO Daily 30 30 2024 10:37a m must administer 30 minutes before or 1-2 hours after breakfast Complies with drug therapy Tramadol 50 mg tablet Discont inued 50 MG PO Every 6 hours as needed for pain 28 7 2024 12:00a m Octob er 2024 12:02 pm Prednisone 50 mg tablet Active 50 MG PO Daily 6 2024 12:00a m Complies with drug therapy Albuterol Sulfate 90 mcg/actuati on HFA aerosol inhaler Active 2 PUFF INHALA TION Every 4 hours as needed for shortness of breath or wheezing 8.5 2024 10:46a m Complies with drug therapy Amlodipine 5 mg tablet Active 5 MG PO Daily 30 2024 10:47a m Complies with drug therapy Celecoxib 200 mg capsule Active 200 MG PO Twice daily 60 2024 10:47a m Complies with drug therapy Cyclobenzap rine 10 mg tablet Active 10 MG PO Three times daily as needed for muscle spasm 90 2024 10:47a m Complies with drug therapy Duloxetine 60 mg capsule,del ayed release(DR/ EC) Active 60 MG PO Daily 30 2024 10:47a m Complies with drug therapy Losartan-Hy drochloroth iazide 100-25 mg tablet Active 1 TAB PO Daily 30 2024 10:48a m Complies with drug therapy Umeclidiniu m-Vilantero l 62.5-25 mcg/actuati on blister with device Active 1 INH INHALA TION Daily 60 2024 10:48a m Complies with drug therapy Zonisamide 50 mg capsule Active 50 MG PO Daily at bedtime 30 2024 10:49a m Complies with drug therapy Hydrocodone -Acetaminop hen 5-325 mg tablet Active 1 TAB PO Every 6 hours as needed for pain 28 7 Octobe r 2024 Complies with drug therapy Procedures Procedure Date Performed Status CT lung screening August 08, 2025 10:21am c ompleted Relevant Diagnostic Tests and/or Laboratory Data Diagnostic Imaging Reports Author Owen Smith [facility] Authored August 08, 2025 12:42pm Report Dictated Date/Time Dictated By Status Radiology Report August 08, 2025 12:42pm Owen Smith Jr DO completed [facility] [place] [address] [place] [address] CT Scan Report Signed Patient: Jazz Juares MR#: [id number] : 1965 Acct:[id number] Age/Sex: 59 / F ADM Date: 5 Loc: CT Room: Type: [facility] Attending Dr: Mane Kearney MD Copies to: Mane Kearney MD~ Ordering Provider: Mane Kearney MD Date of Service: 08/08/25 CT/CT lung screening: F17.210 - Nicotine dependence, cigarettes, uncomplicated CT CHEST WITHOUT CONTRAST, LOW DOSE SCREENING: CLINICAL DATA: A 59-year old current smoker, smoking for 35 pack-years. COMPARISON: None TECHNIQUE: Noncontrast axial CT scan images of the chest were obtained under the low dose screening CT protocol. Coronal and sagittal reconstructed images were also submitted. FINDINGS: Mediastinum : Suboptimal evaluation due to low-dose technique. Thoracic aorta appears normal in caliber. Pulmonary trunk appears nondilated. No pericardial effusion. No lymphadenopathy. The esophagus is grossly unremarkable. Lungs: No focal consolidation, pneumothorax or pleural effusion. Trachea and distal airways appear patent. A few tree-in-bud nodules are noted. No suspicious noncalcified pulmonary nodule or mass. Upper abdomen: No acute findings. Bony thorax and chest wall: Soft tissues surrounding the chest wall demonstrate no acute findings. Osseous structures demonstrate degenerative change. CT/CT lung screening IMPRESSION: NO SUSPICIOUS PULMONARY NODULE. LUNG - RADS Version 1.0 Assessment: Category 1, Negative (No nodules and definitely benign nodules). Management: Continue annual lung screening with LDCT in 12 months. Impression dictated by: Owen Smith Jr., D.OMartell 08/08/2025 12:43 PM Dictation Location: [place] [address] Transcribed By: [facility] 08/08/25 1243 Dictated By: Owen Smith Jr, DO 08/08/25 1242 Signed By: <Electronically signed by Owen Smith Jr DO in OV> 08/08/25 1243 Vital Signs Vital Reading Result Reference Range Collection Date/Time Height 63 [in_i] July 22, 2025 10:06am Weight 119.74 kg July 22, 2025 10:06am Body Temperature 97.1 [degF] 97.6-99.0 July 112024 10:06am Heart Rate 89 /min 60-100 July 22, 2025 10:06am Respiratory rate 20 /min -July 112024 10:06am Oxygen saturation by Pulse oximetry 97 % 95-100 July 22, 2025 10:06am BP Systolic 124 mm[Hg] 100-140 July 22, 2025 10:06am BP Diastolic 70 mm[Hg] 60-100 July 22, 2025 10:06am BMI (Body Mass Index) 46.7 kg/m2 Septem 2024 10:06am Height 64 [in_i] August 15 11:20am Weight 122.07 kg August 15 11:20am Body Temperature 97.5 [degF] 97.6-99.0 August 11:20am Heart Rate 105 /min 60-100 August 15 11:20am Respiratory rate 18 /min -August 11:20am Oxygen saturation by Pulse oximetry 95 % 95-100 August 15, 2025 11 :20am BP Systolic 130 mm[Hg] 100-140 August 15 11:20am BP Diastolic 78 mm[Hg] 60-100 August 15 11:20am BMI (Body Mass Index) 46.2 kg/m2 Octobe r 2024 11:20am Advance Directives Advance Directive Response Recorded Date/ Time Advance Directives No December 10, 2023 4:29pm Insurance Providers Guarantor Yara Fam Address [address] [place] [address] Contact Info. Home Phone: Payer Policy Id Subscriber's Name Subscriber Id Effectiv e Date Expiration Date [facility] [id number] Yara Fam [id number] Madeline LOPEZ/ROSALINA [id number] Yara Fam [id number] Encounters Encounter Location(s) Arrival/Admit Date Discharge/Depart Date Provider(s) Departed Physician/Prov ider Office Visit -[facility] July 22, 2025 9:49am July 22, 2025 10:35am Mane Kearney MD Departed Clinical -CT Scan [facility] August 08, 2025 10:20am August 08, 2025 10:21am Mane Kearney MD Departed Physician/Prov ider Office Visit -[facility] August 15, 2025 10:57am August 15, 2025 12:14pm Mane Kearney MD Recent Diagnosis Onset Date Admit Date Benign essential HTN Unknown July 112024 9:49am Class 3 severe obesity due t o excess calories with serious comorbidity and Unknown July 22, 2025 9:49 am COPD (chronic obstructive pulmonary disease) Unk nown July 22, 2025 9:49am Degenerative lumbar spinal stenosis Unknown July 22, 2025 9:49am Leg edema Unknown July 22, 2025 9:49am Primary osteoarthritis of left knee Unknown July 22, 2025 9:49am Internal derangement of left knee Unknown August 15, 2025 10:57am Assessments Diagnosis Onset Date Resolution Status Admit Date Benign essential HTN acute Sept emb2024 9:49am Class 3 severe obesity due t o excess calories with serious comorbidity and acute July 22, 2025 9:49am COPD (chronic obstructive pulmonary disease) acute July 9:49am Degenerative lumbar spinal stenosis acute July 22, 2025 9:49am Leg edema acute July 9:49am Primary osteoarthritis of le ft knee acute July 22, 2025 9:49am Internal derangement of left knee acute August 15 10:57am Plan of Treatment Author Mane Kearney [facility] Authored July 22, 2025 10:51am BP controlled and monitor ND N. Increased pain from working overtime and increased standing. Treat with prednisone. Start ultram PRN. Discussed risks and benefits of opiate therapy. Warned medication is narcotic and risk of addiction. OARRS reviewed. Ice PRN. Off work today through 07/31 and return 08/01 with 48 hour work week restriction. Breathing stable and continue inhalers. Stressed need to stop smoking. Due for LDCT and 35 pack year history. Edema worse with standing and elevate PRN. Continue lasix. Patient doing well with adipex and lost 19 pounds with medication. Tolerating well with only mild dry mouth. Continue with dietary changes and less calories. Need to limit snacking and smaller portions. Continue healthier choices. Need regular aerobic exercise 30 minutes at a time 5-6 days a week. Refill for another month. Continue meds as prescribed. If develop new or worsening symptoms contact office. Future Tests Future scheduled test information is unavailable Pending Tests Test Name Ordered Date Scheduled Date MR knee LT wo con August 15, 2025 12:04pm Future Visits Future appointment information is unavailable Referrals to Other Providers Reason for Referral Referral Start Date Provider Provider Contact Information Provider Address M23.92 - Unspecified internal derangement of left knee,M17.12 - Unilateral primary osteoarthritis, left knee August 15, 2025 Tian Hayward Jr DO Work Phone: [address] [place] [phone] Future Procedures Future procedure information is unavailable Future Medications Future medication information is unavailable Patient Instructions Patient instructions are unavailable Hospital Discharge Instructions Ambulatory Orders* Referral to Orthopedic Surgery Time Frame: 08/15/25, Location: None Selected
--- OUTSIDE RECORDS SUMMARY | 2025-08-18 11:16 | XMS_ITS | CCD ---
Author Organization [facility] Care Team Providers Care Heating Technician Name Role Phone JESUS, DR MANE [...] JESUS, DR MANE [facility] Unavailable OLIVER, DR NIA Uriost[employer] Unavailable JESUS, DR MANE [facility] Unavailable MD Mane Lee Primary Care Provider BERNICE Shipman Attending Provider Mane Lee MD Primary Care Provider Melva BACK, Corine Puentes Attending Unavailable Melva BACK, Andsidra Puentes Attending Unavailable Melva BACK, Pazrius Puentes Attending Unavailable Melva BACK, Corine Puentes Attending Unavailable Mane Lee MD Unavailable MANE LEE Attending Unavailable MANE LEE Attending Unavailable MANE LEE Attending Unavailable MANE LEE Attending Unavailable MANE LEE Attending Unavailable MANE LEE Attending Unavailable MANE LEE Attending Unavailable Mane Lee MD Primary Care Provider Mane Lee MD Attending Provider Mane Lee Attending Unavailable Mane Lee Primary Care Unavailable Mane Lee Admitting Unavailable Allergies Allergy Classification Reported Allergen(s) Allergy Type Date of Onset Reaction(s) Facility (1 source) Ciprofloxacin Drug Allergy 10-19-[address] [facility] Repository (20 sources) Ciprofloxacin Drug Allergy 10-31-2023 [facility] (1 source) Ciprofloxacin Drug Allergy 07-22-2025 [facility] Repository Medications Current Medications Medication Drug Class(es) Dates Sig (Normalized) Sig (Original) acetaminophen 325 mg / HYDROcodone bitartrate 5 mg oral tablet (2 sources) Opioid Agonist Start: 08-15-2025 take 1 tablet by mouth every six hours as needed for pain Hydrocodone-Aceta minophen 5-325 mg tablet Active 1 TAB PO Every 6 hours as needed for pain 28 7 August 15, 2025 Complies with drug therapy [id number] actuat albuterol 0.09 mg/actuat metered dose inhaler (20 sources) beta2-Adrenergic Agonist Start: 07-22-2025 take 1 puff(s) by inhalation every four hours as needed for wheezing Albuterol Sulfate 90 mcg/actuation HFA aerosol inhaler Active 2 PUFF INHALATION Every 4 hours as needed for shortness of breath or wheezing 8.5 July 22, 2025 10:46am Complies with drug therapy Start: 07-21-2025 take 2.5 mg by inhal ation every six hours as needed for wheezing Albuterol Sulfate 2.5 mg /3 mL (0.083 %) solution for nebulization Active 2.5 MG INHALATION Every 6 hours as needed for shortness of breath or wheezing July 21, 2025 12:00am Complies with drug therapy Start: 07-21-2025 End: 07-22-2025 take 1 puff(s) by inhalation every six hours as needed Albuterol Sulfate 90 mcg/actuation HFA aerosol inhaler Discontinued 2 PUFF INHALATION Every 6 hours as needed July 21, 2025 12:00am July 22, 2025 10:49am Start: 10-28-2023 albuterol (2.5 MG/3ML) 0.083% nebulizer [...] breath 18 g 3 07/01/2024 07/13/2025 Active cefdinir 300 mg oral capsule (2 sources) Cephalosporin Antibacterial Start: 08-04-2024 End: 08-14-2024 take 1 capsule by mouth in the morning cefdinir (Omnicef) 300 MG capsule Indications: Acute bronchitis due to other specified organisms Take 1 capsule (300 mg) by mouth in the morning and 1 capsule (300 mg) before bedtime. Do all this for 10 days. 20 capsule 08/04/2024 08/14/2024 Active cholecalciferol 0.05 mg oral capsule (20 sources) Vitamin D Start: 07-21-2025 End: 07-28-2025 take 1 capsule by mouth once daily Cholecalciferol (Vitamin D3) 50 mcg (2,000 unit) capsule Active 50 MCG PO Daily July 28, 2025 7:03am Complies with drug therapy Start: 10-28-2023 End: 08-10-2025 take 1 tablet by mouth once daily cholecalciferol (Vitamin D-3) 50 MCG (2000 UT) tablet Indications: Vitamin D deficiency Take 1 tablet (50 mcg) by mouth Daily 90 tablet 3 08/04/2024 08/10/2025 Active cyclobenzaprine hydrochloride 10 mg oral tablet (20 sources) Muscle Relaxant Start: 07-21-2025 End: 07-22-2025 take 1 tablet by mouth three times daily as needed for muscle spasms Cyclobenzaprine 10 mg tablet Active 10 MG PO Three times daily as needed for muscle spasm 90 July 22, 2025 10:47am Complies with drug therapy Start: 04-28-2025 take [...] muscle spasms 90 tablet 3 08/04/2024 Active furosemide 40 mg oral tablet (20 sources) Loop Diuretic Start: 10-28-2023 End: 08-04-2025 take 1 tablet by mouth once daily Furosemide 40 mg tablet Active 40 MG PO Daily July 21, 2025 12:00am Complies with drug therapy phentermine hydrochloride 37.5 mg oral tablet (20 sources) Sympathomimetic Amine Anorectic Start: 07-21-2025 End: 07-22-2025 take 1 tablet by mouth once daily 30 minutes after breakfast Phentermine 37.5 mg tablet Active 37.5 MG PO Daily July 22, 2025 10:37am must administer 30 minutes before or 1-2 hours after breakfast Complies with drug therapy Start: 01-10-2025 End: 06-26-2025 take 45-49.9 tablets by mouth before mealtime phentermine (Adipex-P) 37.5 MG tablet Indications: Class 3 severe obesity due to excess calories with serious comorbidity and body mass index (BMI) of 45.0 to 49.9 in adult ([facility]) Take 1 tablet (37.5 mg) by mouth in the morning. Take before meals. 30 tablet 05/27/2025 06/26/2025 Active Start: 06-02-2024 End: 08-04-2024 take 1 tablet by mouth before mealtime phentermine (Adipex-P) 37.5 MG tablet Indications: Morbid obesity due to excess calories ([facility]) Take 1 tablet (37.5 mg) by mouth [...] drug therapy predniSONE 50 mg oral tablet (5 sources) Start: 07-22-2025 take 1 tablet by mouth once daily Prednisone 50 mg tablet Active 50 MG PO Daily 6 July 22, 2025 12:00am Complies with drug therapy Start: 08-04-2024 End: 08-10-2024 take 1 tablet by mouth once daily predniSONE (Deltasone) 50 MG tablet Indications: Acute bronchitis due to other specified organisms Take 1 tablet (50 mg) by mouth Daily for 6 days 6 tablet 08/04/2024 08/10/2024 Active Umeclidinium-Vilanterol (20 sources) Anticholinergic, beta2-Adrenergic Agonist Start: 07-22-2025 Umeclidinium-Vilanterol 62.5-25 mcg/actuation blister with device Active 1 INH INHALATION Daily 60 July 22, 2025 10:48am Complies with drug therapy Start: 07-22-2025 Start: 07-21-2025 End: 07-22-2025 Umeclidinium-Vilanterol 62.5 -25 mcg/actuation blister with device Discontinued 1 INH INHALATION Daily July 21, 2025 12:00am July 22, 2025 10:49am Start: 07-21-2025 Umeclidinium-V ilanterol 62.5-25 mcg/actuation blister with device Active 1 INH INHALATION Daily July 21, 2025 12:00am Complies with drug therapy Start: 08-04-2024 take 1 puff(s) by mo ut once daily Anoro Ellipta 62.5-25 MCG/ACT aerosol [...] capsule (20 sources) Anti-epileptic Agent Start: 07-21-2025 End: 07-22-2025 take 1 capsule by mouth once daily at bedtime Zonisamide 50 mg capsule Active 50 MG PO Daily at bedtime July 22, 2025 10:49am Complies with drug therapy Start: 07-01-2024 End: 08-04-2024 take 1 capsule by mouth at bedtime zonisamide (Zonegran) 50 MG capsule Indications: Spinal stenosis, lumbar region, without neurogenic claudication Take 1 capsule (50 mg) by mouth at bedtime 90 capsule 3 08/04/2024 Active Start: 04-01-2024 End: 07-01-2024 zonisamide (Zonegran) 100 MG capsule Take 50 mg by mouth at bedtime 04/01/2024 07/01/2024 Discontinued (Dose adjustment) Completed/Discontinued Medications Medication Drug Class(es) Dates Sig (Normalized) Sig (Original) amLODIPine 5 mg oral tablet (20 sources) Dihydropyridine Calcium Channel Cintia Start: 3 End: 5 take 1 tablet by mouth once daily Amlodipine 5 mg tablet Discontinued 5 MG PO Daily July 21, 2025 12:00am July 22, 2025 10:49am celecoxib 200 mg oral capsule (20 sources) Nonsteroidal Anti-inflammatory Drug Start: 3 End: 5 take 1 capsule by mouth twice daily Celecoxib 200 mg capsule Discontinued 200 MG PO Twice daily July 21, 2025 12:00am July 22, 2025 10:49am DULoxetine 60 mg delayed release oral capsule (20 sources) Serotonin and Norepinephrine Reuptake Inhibitor Start: 3 End: 5 take 1 capsule by mouth once daily Duloxetine 60 mg capsule,delayed release(DR/EC) Discontinued 60 MG PO Daily July 21, 2025 12:00am July 22, 2025 10:49am hydroCHLOROthiazide 25 mg / losartan potassium 100 mg oral tablet (20 sources) Thiazide Diuretic, Angiotensin 2 Receptor Cintia Start: 4 End: 5 take 1 tablet by mouth once daily Losartan-Hydroch lorothiazide 100-25 mg tablet Discontinued 1 TAB PO Daily July 21, 2025 12:00am July 22, 2025 10:49am Start: 10-28-2023 End: 10-27-2024 take 1 tablet by mouth in the morning losartan-hydroCHLOROthiazide (Hyzaar) 10 0-25 MG tablet Indications: Essential hypertension, benign (CMS/HCC) Take 1 tablet by mouth in the morning. 90 tablet 3 10/28/2023 10/27/2024 Active traMADol hydrochloride 50 mg oral tablet (3 sources) Opioid Agonist Start: 07-22-2025 End: 08-15-2025 take 1 tablet by mouth every six hours as needed for pain Tramadol 50 mg tablet Discontinued 50 MG PO Every 6 hours as needed for pain 28 7 July 22, 2025 12:00am August 15, 2025 12:02pm Problems Active Problems Problem Classification Problem Date Documented Da te Episodic/Chronic Chronic obstructive pulmonary disease and bronchiectasis (20 sources) Chronic obstructive pulmonary disease, unspecified; 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: [Chronic obstructive pulmonary disease with (acute) lower respiratory infection] Onset: 11-20-2022 Chronic Essential hypertension (20 sources) Essential (primary) hypertension; 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: [Benign essential hypertension] Onset: 11-20-2022 10-31-2023 Chronic Joint disorders and dislocations; trauma-related (4 sources) Derangement of left knee; 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: [Unspecified internal derangement of left knee] 08-15-2025 Chronic Nutritional deficiencies (20 sources) Vitamin D deficiency; 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: [Vitamin D deficiency, unspecified] Onset: 10-31-2023 10-31-2023 Chronic Osteoarthritis (8 sources) Osteoarthritis of left knee joint; 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: [Unilateral primary osteoarthritis, left knee] 07-22-2025 Chronic Other aftercare (1 source) Other fci (current) drug therapy; 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: [OTH HAZARDOUS WASTE REMOVER CURRENT DRUG THERAPY] Onset: 11-20-2022 Episodic Other aftercare (1 source) [facility] (current) use of opiate analgesic; 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: [HAZARDOUS WASTE REMOVER CURRNT USE OPIATE ANALGES] Onset: 11-20-2022 Episodic Other bone disease and musculoskeletal deformities (20 sources) Osteopenia; 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: [Other specified disorders of bone density and structure, right thigh] Onset: 10-31-2023 10-31-2023 Episodic Other injuries and conditions due to external causes (20 sources) Unspecified injury of other specified muscles, [...] (BMI) of 45.0 to 49.9 in adult ([facility])] Onset: 10-31-2023 01-10-2025 Chronic Other screening for [...] Onset: 10-31-2023 10-31-2023 Chronic Residual codes; unclassified (4 sources) Obstructive sleep apnea of adult; 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: [Obstructive sleep apnea (adult) (pediatric)] 07-21-2025 Chronic Residual codes; unclassified (1 source) Family history of malignant neoplasm of digestive organs; 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: [[facility]X [facility] NEOPLASM DIGESTIV ORGN] Onset: 02-01-2023 Episodic Residual [...] Spondylosis; intervertebral disc disorders; other back problems (6 sources) Degeneration of lumbar intervertebral disc; 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: [Other intervertebral disc degeneration, lumbar region] 08-04-2024 Chronic Spondylosis; intervertebral disc disorders; other back problems (20 sources) Degenerative lumbar spinal stenosis; 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: [Spinal stenosis, lumbar region without neurogenic claudication] Onset: 10-31-2023 10-31-2023 Episodic Substance-related disorders (20 sources) Nicotine dependence, cigarettes, uncomplicated; 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: [Cigarette smoker ] Onset: 11-20-2022 01-10-2025 Chronic Unclassified (1 source) CONTACT W/AND (SUSP) EXPOS COVID-19; 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: [CONTACT W/AND (SUSP) EXPOS COVID-19] Onset: 11-20-2022 Unclassified (1 source) M23.92 - Unspecified internal derangement of left knee,M17.12 - Unilateral primary osteoarthritis, left knee Past or Other Problems Problem Classification Problem Date Documented Da te Episodic/Chronic Acute bronchitis (16 sources) Acute infective bronchitis; 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: [Acute bronchitis due to other specified organisms] Onset: 08-04-2024 Resolved: 01-10-2025 08-04-2024 Episodic Other and unspecified benign neoplasm (20 sources) History of polyp of colon; 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: [Personal history of colonic polyps] Onset: 10-31-2023 10-31-2023 Episodic Results Test Name Value Interpretation Reference Range Facility CT lung screeningon 08-08-20 CT lung screening [facility] Main [place] [address] [place] [address] CT Scan Report Signed Patient: Lawrence Harrison MR#: [id number] 8 : 1965 Acct:[id number] Age/Sex: 59 / F ADM Date: 08/08/25 Loc: CT Room: Type: [facility] Attending Dr: Mane Lee MD Copies to: Mane Lee MD Ordering Provider: Mane Lee MD Date of Service: 08/08/25 CT/CT lung [...] months. Impression dictated by: Owen Smith Jr., D.O. 08/08/2025 12:43 PM Dictation Location: [place] [address] Transcribed By: [facility] 08/08/25 1243 Dictated By: Owen Smith Jr, DO 08/08/25 1242 Signed By: 08/08/25 1243 Normal [facility] ALL CBC WITH AUTO DIFFon BASOPHILS ABSOLUTE AUTO 0.1 [facility] Basophils/100 WBC (Bld) 0.7 % 0.2 - 2.0 % [facility] Eosinophils/100 WBC (Bld) 4.2 % 0.9 - 7.0 % [facility] Erythrocyte distribution width (RBC) [Ratio] 12.8 % 11.0 - 15.0 % [facility] Hematocrit (Bld) [Volume fraction] 40.5 % 36.0 - 48.0 % [facility] Hemoglobin (Bld) [Mass/Vol] 13.3 g/dL 12.0 - 16.0 g/dL [facility] IMMATURE GRANULOCYTES ABS AUTO 0.02 [facility] Immature granulocytes/100 WBC (Bld) 0.2 % 0.0 - 0.5 % [facility] LYMPHOCYTES ABSOLUTE AUTO 1.9 [facility] Lymphocytes/100 WBC (Bld) 22.4 % 20.5 - 60.0 % [facility] MCH (RBC) [Entitic mass] 29.6 pg 26.7 - 34.0 pg [facility] MCHC (RBC) [Mass/Vol] 32.8 g/dL 29.9 - 35.2 g/dL [facility] MCV (RBC) [Entitic vol] 90 fL 81.0 - 99.0 fL [facility] MONOCYTES ABSOLUTE AUTO 0.6 [facility] Monocytes/100 WBC (Bld) 7.4 % 1.7 - 12.0 % [facility] NEUTROPHILS ABSOLUTE AUTO 5.6 [facility] Neutrophils/100 WBC (Bld) 65.1 % 43.0 - 75.0 % [facility] Platelet mean volume (Bld) [Entitic vol] 9.6 fL 9.5 - 13.5 fL [facility] EO # 0.4 [facility] PLT 277 [facility] RBC 4.5 [facility] WBC 8.6 [facility] HEMOGLOBINon 01-29-2023 Hemoglobin (Bld) [Mass/Vol] 14.6 g/dL Normal 12.0-16.0 [facility] Comment on above: Performed By: #### H GB #### [facility] [address] [place] [address] [address] Evangelist Chicas MG MAMM SCREEN 3D MANJIT CADon 01-29-2023 MG MAMM SCREEN 3D MANJIT CAD Patient: LAWRENCE HARRISON Exam Date: 01/29/2023 : 1965 Gender:F Ordering : DR MANE LEE . Admission #: [id number] Family : Order #: [id number] CLICK HERE TO VIEW EXAM RADIOLOGY REPORT [...] rectal cancer at age 73. LOCATION: [facility] BREAST COMPOSITION: Scattered areas fibroglandular density. [...] MD on 01/29/2023 at 09:[address] [facility] CBC AUTO DIFFon 11-14-2022 BASO # 0.0 103/ul Normal 0.0-0.[address] [facility] Comment on above: Performed By: #### B MP #### [facility] [address] [place] [address] [address] Evangelist Chicas Basophils/100 WBC (Bld) 0.1 % Critically low 0.2-2.0 [facility] Comment on above: Performed By: #### B MP #### [facility] [address] [place] [address] Dr. Evangelist Chicas EO # 0.0 103/ul Normal 0.0-0.[address] [facility] Comment on above: Performed By: #### B MP #### [facility] [address] [place] [address] Dr. Evangelist Chicas Eosinophils/100 WBC (Bld) 0.1 % Critically low 0.9-7.[address] [facility] Comment on above: Performed By: #### B MP #### [facility] [address] [place] [address] Dr. Evangelist Chicas Erythrocyte distribution width (RBC) [Ratio] 13.1 % Normal 11.0-15.0 [facility] Comment on above: Performed By: #### B MP #### [facility] [address] [place] [address] Dr. Evangelist Chicas Hematocrit (Bld) [Volume fraction] 41.4 % Normal 36.0-48.0 [facility] Comment on above: Performed By: #### B MP #### [facility] [address] [place] [address] Dr. Evangelist Chicas Hemoglobin (Bld) [Mass/Vol] 13.0 g/dL Normal 12.0-16.0 [facility] Comment on above: Performed By: #### B MP #### [facility] [address] [place] [address] Dr. Evangelist Chicas IG # 0.03 10e3/ul Normal 0.00-0.[address] [facility] Comment on above: Performed By: #### B MP #### [facility] [address] [place] [address] Dr. Evangelist Chicas IG % 0.4 % Normal 0.0-0.[address] [facility] Comment on above: Performed By: #### B MP #### [facility] [address] [place] [address] Dr. Evangelist Chicas LYMPH # 0.4 103/ul Critically low 1.2-3.8 [facility] Comment on above: Performed By: #### B MP #### [facility] [address] [place] [address] [address] Evangelist Chicas Lymphocytes/100 WBC (Bld) 4.7 % Critically low 20.5-60.[address] [facility] Comment on above: Performed By: #### B MP #### [facility] [address] [place] [address] Dr. Evangelist Chicas MANUAL DIFF REQ NO Normal [facility] Comment on above: Performed By: #### B MP #### [facility] [address] [place] [address] [address] Evangelist Chicas MCH (RBC) [Entitic mass] 29.1 pg Normal 26.7-34.[address] [facility] Comment on above: Performed By: #### B MP #### [facility] [address] [place] [address] Dr. Evangelist Chicas MCHC (RBC) [Mass/Vol] 31.4 g/dL Normal 29.9-35.[address] [facility] Comment on above: Performed By: #### B MP #### [facility] [address] [place] [address] Dr. Evangelist Chicas MCV (RBC) [Entitic vol] 92.8 fL Normal 81.0-99.[address] [facility] Comment on above: Performed By: #### B MP #### [facility] [address] [place] [address] Dr. Evangelist Chicas MONO # 0.1 103/ul Critically low 0.3-0.8 [facility] Comment on above: Performed By: #### B MP #### [facility] [address] [place] [address] Dr. Evangelist Chicas Monocytes/100 WBC (Bld) 1.8 % Normal 1.7-12.[address] [facility] Comment on above: Performed By: #### B MP #### [facility] [address] [place] [address] Dr. Evangelist Chicas NEUT # 6.8 103/ul Critically high 1.4-6.5 [facility] Comment on above: Performed By: #### B MP #### [facility] [address] [place] [address] [address] Evangelist Chicas Neutrophils/100 WBC (Bld) 92.9 % Critically high 43.0-75.0 [facility] Comment on above: Performed By: #### B MP #### [facility] [address] [place] [address] Dr. Evangelist Chicas Platelet mean volume (Bld) [Entitic vol] 11.3 fL Normal 9.5-13.5 [facility] Comment on above: Performed By: #### B MP #### [facility] [address] [place] [address] Dr. Evangelist Chicas PLT 109 103/ul Critically low 150-450 [facility] Comment on above: Performed By: #### B MP #### [facility] [address] [place] [address] Dr. Evangelist Chicas RBC 4.46 106/ul Normal 4.20-5.40 [facility] Comment on above: Performed By: #### B MP #### [facility] [address] [place] [address] Dr. Evangelist Chicas WBC 7.4 103/ul Normal 4.0-11.[address] [facility] Comment on above: Performed By: #### B MP #### [facility] [address] [place] [address] Dr. Evangelist Chicas PROF CHEM 8 (BAS METB)on Anion gap [Moles/Vol] 11.8 mmol/L Normal [facility] Comment on above: Performed By: #### B MP #### [facility] [address] [place] [address] Dr. Evangelist Chicas Calcium [Mass/Vol] 9.3 mg/dL Normal 8.5-10.1 [facility] Comment on above: Performed By: #### B MP #### [facility] [address] [place] [address] Dr. Evangelist Chicas Chloride [Moles/Vol] 99 mmol/L Normal 98-[address] [facility] Comment on above: Performed By: #### B MP #### [facility] [address] [place] [address] Dr. Evangelist Chicas CO2 [Moles/Vol] 31.6 mmol/L Normal 21.0-32.0 [facility] Comment on above: Performed By: #### B MP #### [facility] [address] [place] [address] [address] Evangelist Chicas Creatinine [Mass/Vol] 0.75 mg/dL Normal 0.55-1.02 [facility] Comment on above: Performed By: #### B MP #### [facility] [address] [place] [address] [address] Evangelist Chicas EGFR-AF BURUNDIAN >60 Normal >=60 [facility] Comment on above: Performed By: #### B MP #### [facility] [address] [place] [address] [address] Evangelist Chicas EGFR-NON AF BURUNDIAN >60 Normal >=60 [facility] Comment on above: Performed By: #### B MP #### [facility] [address] [place] [address] [address] Evangelist Chicas Glucose [Mass/Vol] 162 mg/dL Critically high 74-106 [facility] Comment on above: Performed By: #### B MP #### [facility] [address] [place] [address] [address] Evangelist Chicas Potassium [Moles/Vol] 4.4 mmol/L Normal 3.5-5.1 [facility] Comment on above: Performed By: #### B MP #### [facility] [address] [place] [address] [address] Evangelist Chicas Sodium [Moles/Vol] 138 mmol/L Normal 136-145 [facility] Comment on above: Performed By: #### B MP #### [facility] [address] [place] [address] [address] Evangelist Chicas Urea nitrogen [Mass/Vol] 32.0 mg/dL Critically high 7.0-18.0 [facility] Comment on above: Performed By: #### B MP #### [facility] [address] [place] [address] [address] Evangelist Chicas Urea nitrogen/Creatinin e [Mass ratio] 42.7 mg/mg Normal [facility] Comment on above: Performed By: #### B MP #### [facility] [address] [place] [address] Dr. Evangelist Chicas CBC AUTO DIFFon 11-13-2022 BASO # 0.0 103/ul Normal 0.0-0.1 [facility] Comment on above: Performed By: #### C BC #### [facility] [address] [place] [address] Dr. Evangelist Chicas Basophils/100 WBC (Bld) 0.1 % Critically low 0.2-2.0 [facility] Comment on above: Performed By: #### C BC #### [facility] [address] [place] [address] Dr. Evangelist Chicas EO # 0.0 103/ul Normal 0.0-0.7 [facility] Comment on above: Performed By: #### C BC #### [facility] [address] [place] [address] Dr. Evangelist Chicas Eosinophils/100 WBC (Bld) 0.0 % Critically low 0.9-7.0 [facility] Comment on above: Performed By: #### C BC #### [facility] [address] [place] [address] Dr. Evangelist Chicas Erythrocyte distribution width (RBC) [Ratio] 12.9 % Normal 11.0-15.0 [facility] Comment on above: Performed By: #### C BC #### [facility] [address] [place] [address] Dr. Evangelist Chicas Hematocrit (Bld) [Volume fraction] 39.0 % Normal 36.0-48.0 [facility] Comment on above: Performed By: #### C BC #### [facility] [address] [place] [address] Dr. Evangelist Chicas Hemoglobin (Bld) [Mass/Vol] 12.3 g/dL Normal 12.0-16.0 [facility] Comment on above: Performed By: #### C BC #### [facility] [address] [place] [address] Dr. Evangelist Chicas IG # 0.04 10e3/ul Critically high 0.00-0.03 [facility] Comment on above: Performed By: #### C BC #### [facility] [address] [place] [address] Dr. Evangelist Chicas IG % 0.4 % Normal 0.0-0.5 [facility] Comment on above: Performed By: #### C BC #### [facility] [address] [place] [address] Dr. Evangelist hCicas LYMPH # 0.5 103/ul Critically low 1.2-3.8 [facility] Comment on above: Performed By: #### C BC #### [facility] [address] [place] [address] Dr. Evangelist Chicas Lymphocytes/100 WBC (Bld) 4.5 % Critically low 20.5-60.0 [facility] Comment on above: Performed By: #### C BC #### [facility] [address] [place] [address] Dr. Evangelist Chicas MANUAL DIFF REQ NO Normal [facility] Comment on above: Performed By: #### C BC #### [facility] [address] [place] [address] Dr. Evangelist Chicas MCH (RBC) [Entitic mass] 29.7 pg Normal 26.7-34.0 [facility] Comment on above: Performed By: #### C BC #### [facility] [address] [place] [address] Dr. Evangelist Chicas MCHC (RBC) [Mass/Vol] 31.5 g/dL Normal 29.9-35.2 [facility] Comment on above: Performed By: #### C BC #### [facility] [address] [place] [address] Dr. Evangelist Chicas MCV (RBC) [Entitic vol] 94.2 fL Normal 81.0-99.0 [facility] Comment on above: Performed By: #### C BC #### [facility] [address] [place] [address] Dr. Evangelist Chicas MONO # 0.2 103/ul Critically low 0.3-0.8 [facility] Comment on above: Performed By: #### C BC #### [facility] [address] [place] [address] Dr. Evangelist Chicas Monocytes/100 WBC (Bld) 1.5 % Critically low 1.7-12.0 [facility] Comment on above: Performed By: #### C BC #### [facility] [address] [place] [address] Dr. Evangelist Chicas NEUT # 10.5 103/ul Critically high 1.4-6.5 [facility] Comment on above: Performed By: #### C BC #### [facility] [address] [place] [address] Dr. Evangelist Chicas Neutrophils/100 WBC (Bld) 93.5 % Critically high 43.0-75.0 [facility] Comment on above: Performed By: #### C BC #### [facility] [address] [place] [address] Dr. Evangelist Chicas Platelet mean volume (Bld) [Entitic vol] 10.4 fL Normal 9.5-13.5 [facility] Comment on above: Performed By: #### C BC #### [facility] [address] [place] [address] Dr. Evangelist Chicas PLT 169 103/ul Normal 150-450 [facility] Comment on above: Performed By: #### C BC #### [facility] [address] [place] [address] Dr. Evangelist Chicas RBC 4.14 106/ul Critically low 4.20-5.40 [facility] Comment on above: Performed By: #### C BC #### [facility] [address] [place] [address] Dr. Evangelist Chicas WBC 11.2 103/ul Critically high 4.0-11.0 [facility] Comment on above: Performed By: #### C BC #### [facility] [address] [place] [address] Dr. Evangelist Chicas CULTURE SPUTUMon 11-13-2022 CULTURE SPUTUM Culture Observations : NORMAL RESPIRATORY SHAINA. Normal [facility] Comment on above: Performed By: #### B MP #### [facility] [address] [place] [address] Dr. Evangelist Chicas PROF CHEM 8 (BAS METB)on Anion gap [Moles/Vol] 9.2 mmol/L Normal [facility] Comment on above: Performed By: #### D DIM #### [facility] [address] [place] [address] Dr. Evangelist Chicas Calcium [Mass/Vol] 9.1 mg/dL Normal 8.5-10.1 [facility] Comment on above: Performed By: #### D DIM #### [facility] [address] [place] [address] Dr. Evangelist Chicas Chloride [Moles/Vol] 100 mmol/L Normal 98-107 [facility] Comment on above: Performed By: #### D DIM #### [facility] [address] [place] [address] Dr. Evangelist Chicas CO2 [Moles/Vol] 33.8 mmol/L Critically high 21.0-32.0 [facility] Comment on above: Performed By: #### D DIM #### [facility] [address] [place] [address] Dr. Evangelist Chicas Creatinine [Mass/Vol] 0.85 mg/dL Normal 0.55-1.02 [facility] Comment on above: Performed By: #### D DIM #### [facility] [address] [place] [address] Dr. Evangelist Chicas EGFR-AF BURUNDIAN >60 Normal >=60 [facility] Comment on above: Performed By: #### D DIM #### [facility] [address] [place] [address] Dr. Evangelist Chicas EGFR-NON AF BURUNDIAN >60 Normal >=60 [facility] Comment on above: Performed By: #### D DIM #### [facility] [address] [place] [address] Dr. Evangelist Chicas Glucose [Mass/Vol] 151 mg/dL Critically high 74-106 [facility] Comment on above: Performed By: #### D DIM #### [facility] [address] [address] [address] Evangelist Chicas Potassium [Moles/Vol] 4.0 mmol/L Normal 3.5-5.1 [facility] Comment on above: Performed By: #### D DIM #### [facility] [address] [place] [address] Dr. Evangelist Chicas Sodium [Moles/Vol] 139 mmol/L Normal 136-145 [facility] Comment on above: Performed By: #### D DIM #### [facility] [address] [place] [address] Dr. Evangelist Chicas Urea nitrogen [Mass/Vol] 29.0 mg/dL Critically high 7.0-18.0 [facility] Comment on above: Performed By: #### D DIM #### [facility] [address] [place] [address] Dr. Evangelist Chicas Urea nitrogen/Creatinin e [Mass ratio] 34.1 mg/mg Normal [facility] Comment on above: Performed By: #### D DIM #### [facility] [address] [place] [address] Dr. Evangelist Chicas CBC AUTO DIFFon 11-12-2022 BASO # 0.0 103/ul Normal 0.0-0.1 [facility] Comment on above: Performed By: #### C BC #### [facility] [address] [place] [address] Dr. Evangelist Chicas Basophils/100 WBC (Bld) 0.1 % Critically low 0.2-2.0 [facility] Comment on above: Performed By: #### C BC #### [facility] [address] [place] [address] Dr. Evangelist Chicas EO # 0.0 103/ul Normal 0.0-0.7 [facility] Comment on above: Performed By: #### C BC #### [facility] [address] [place] [address] Dr. Evangelist Chicas Eosinophils/100 WBC (Bld) 0.0 % Critically low 0.9-7.0 [facility] Comment on above: Performed By: #### C BC #### [facility] [address] [address] [address] Evangelist Chicas Erythrocyte distribution width (RBC) [Ratio] 12.8 % Normal 11.0-15.0 [facility] Comment on above: Performed By: #### C BC #### [facility] [address] [address] [address] Evangelist Chicas Hematocrit (Bld) [Volume fraction] 41.5 % Normal 36.0-48.0 [facility] Comment on above: Performed By: #### C BC #### [facility] [address] [place] [address] Dr. Evangelist Chicas Hemoglobin (Bld) [Mass/Vol] 13.0 g/dL Normal 12.0-16.0 [facility] Comment on above: Performed By: #### C BC #### [facility] [address] [place] [address] Dr. Evangelist Chicas IG # 0.04 10e3/ul Critically high 0.00-0.03 [facility] Comment on above: Performed By: #### C BC #### [facility] [address] [address] [address] Evangelist Chicas IG % 0.3 % Normal 0.0-0.5 [facility] Comment on above: Performed By: #### C BC #### [facility] [address] [place] [address] Dr. Evangelist Chicas LYMPH # 0.5 103/ul Critically low 1.2-3.8 [facility] Comment on above: Performed By: #### C BC #### [facility] [address] [place] [address] Dr. Evangelist Chicas Lymphocytes/100 WBC (Bld) 3.7 % Critically low 20.5-60.0 [facility] Comment on above: Performed By: #### C BC #### [facility] [address] [place] [address] Dr. Evangelist Chicas MANUAL DIFF REQ NO Normal [facility] Comment on above: Performed By: #### C BC #### [facility] [address] [address] [address] Evangelist Chicas MCH (RBC) [Entitic mass] 29.5 pg Normal 26.7-34.[address] [facility] Comment on above: Performed By: #### C BC #### [facility] [address] [place] [address] Dr. Evangelist Chicas MCHC (RBC) [Mass/Vol] 31.3 g/dL Normal 29.9-35.[address] [facility] Comment on above: Performed By: #### C BC #### [facility] [address] [place] [address] Dr. Evangelist Chicas MCV (RBC) [Entitic vol] 94.3 fL Normal 81.0-99.0 [facility] Comment on above: Performed By: #### C BC #### [facility] [address] [place] [address] Dr. Evangelist Chicas MONO # 0.2 103/ul Critically low 0.3-0.8 [facility] Comment on above: Performed By: #### C BC #### [facility] [address] [place] [address] Dr. Evangelist Chicas Monocytes/100 WBC (Bld) 1.3 % Critically low 1.7-12.0 [facility] Comment on above: Performed By: #### C BC #### [facility] [address] [place] [address] Dr. Evangelist Chicas NEUT # 12.4 103/ul Critically high 1.4-6.5 [facility] Comment on above: Performed By: #### C BC #### [facility] [address] [place] [address] Dr. Evangelist Chicas Neutrophils/100 WBC (Bld) 94.6 % Critically high 43.0-75.[address] [facility] Comment on above: Performed By: #### C BC #### [facility] [address] [place] [address] Dr. Evangelist Chicas Platelet mean volume (Bld) [Entitic vol] 9.9 fL Normal 9.5-13.[address] [facility] Comment on above: Performed By: #### C BC #### [facility] [address] [place], [place] [address] Dr. Evangelist Chicas PLT 189 103/ul Normal 150-[address] [facility] Comment on above: Performed By: #### C BC #### [facility] [address] [address] [address] Evangelist Chicas RBC 4.40 106/ul Normal 4.20-5.40 [facility] Comment on above: Performed By: #### C BC #### [facility] [address] [place], [place] [address] Dr. Evangelist Chicas WBC 13.1 103/ul Critically high 4.0-11.0 [facility] Comment on above: Performed By: #### C BC #### [facility] [address] [address] [address] Evangelist Chicas ECHOCARDIO M/2D COMPLETEon 0 11-12-2022 ECHOCARDIO M/2D COMPLETE Patient: LAWRENCE HARRISON Exam Date: 11/12/2022 : 1965 Gender:F Ordering : DR MANE LEE . Admission #: [id number] Family : DR VAMSHI MORGAN . Order #: [id number] CLICK HERE TO VIEW EXAM ECHOCARDIOGRAM REPORT [...] Goncalves M.D. on 11/12/2022 at 13:56 Normal [facility] PROF CHEM 8 (BAS METB)on Anion gap [Moles/Vol] 10.2 mmol/L Normal [facility] Comment on above: Performed By: #### B MP #### [facility] [address] [place] [address] Dr. Evangelist Chicas Calcium [Mass/Vol] 9.2 mg/dL Normal 8.5-10.1 [facility] Comment on above: Performed By: #### B MP #### [facility] [address] [place] [address] Dr. Evangelist Chicas Chloride [Moles/Vol] 99 mmol/L Normal 98-107 [facility] Comment on above: Performed By: #### B MP #### [facility] [address] [place] [address] Dr. Evangelist Chicas CO2 [Moles/Vol] 31.5 mmol/L Normal 21.0-32.0 [facility] Comment on above: Performed By: #### B MP #### [facility] [address] [address] [address] Evangelist Chicas Creatinine [Mass/Vol] 0.87 mg/dL Normal 0.55-1.02 [facility] Comment on above: Performed By: #### B MP #### [facility] [address] [place] [address] Dr. Evangelist Chicas EGFR-AF BURUNDIAN >60 Normal >=60 [facility] Comment on above: Performed By: #### B MP #### [facility] [address] [place] [address] Dr. Evangelist Chicas EGFR-NON AF BURUNDIAN >60 Normal >=60 [facility] Comment on above: Performed By: #### B MP #### [facility] [address] [address] [address] Evangelist Chicas Glucose [Mass/Vol] 168 mg/dL Critically high 74-106 [facility] Comment on above: Performed By: #### B MP #### [facility] [address] [address] [address] Evangelist Chicas Potassium [Moles/Vol] 3.7 mmol/L Normal 3.5-5.1 [facility] Comment on above: Performed By: #### B MP #### [facility] [address] [address] [address] Evangelist Chicas Sodium [Moles/Vol] 137 mmol/L Normal 136-145 [facility] Comment on above: Performed By: #### B MP #### [facility] [address] [address] [address] Evangelist Chicas Urea nitrogen [Mass/Vol] 28.0 mg/dL Critically high 7.0-18.0 [facility] Comment on above: Performed By: #### B MP #### [facility] [address] [address] [address] Evangelist Chicas Urea nitrogen/Creatinin e [Mass ratio] 32.2 mg/mg Normal [facility] Comment on above: Performed By: #### B MP #### [facility] [address] [address] [address] Evangelist Chicas CBC AUTO DIFFon 11-11-2022 BASO # 0.0 103/ul Normal 0.0-0.1 [facility] Comment on above: Performed By: #### C BC #### [facility] [address] [address] [address] Evangelist Chicas Basophils/100 WBC (Bld) 0.2 % Normal 0.2-2.0 [facility] Comment on above: Performed By: #### C BC #### [facility] [address] [address] [address] Evangelist Chicas EO # 0.0 103/ul Normal 0.0-0.7 [facility] Comment on above: Performed By: #### C BC #### [facility] [address] [place] [address] Dr. Evangelist Chicas Eosinophils/100 WBC (Bld) 0.0 % Critically low 0.9-7.0 [facility] Comment on above: Performed By: #### C BC #### [facility] [address] [place] [address] Dr. Evangelist Chicas Erythrocyte distribution width (RBC) [Ratio] 12.7 % Normal 11.0-15.0 [facility] Comment on above: Performed By: #### C BC #### [facility] [address] [place] [address] Dr. Evangelist Chicas Hematocrit (Bld) [Volume fraction] 41.7 % Normal 36.0-48.0 [facility] Comment on above: Performed By: #### C BC #### [facility] [address] [place] [address] Dr. Evangelist Chicas Hemoglobin (Bld) [Mass/Vol] 13.0 g/dL Normal 12.0-16.0 [facility] Comment on above: Performed By: #### C BC #### [facility] [address] [place] [address] Dr. Evangelist Chicas IG # 0.03 10e3/ul Normal 0.00-0.03 [facility] Comment on above: Performed By: #### C BC #### [facility] [address] [place] [address] Dr. Evangelist Chicas IG % 0.5 % Normal 0.0-0.[address] [facility] Comment on above: Performed By: #### C BC #### [facility] [address] [place] [address] Dr. Evangelist Chicas LYMPH # 0.4 103/ul Critically low 1.2-3.8 [facility] Comment on above: Performed By: #### C BC #### [facility] [address] [place] [address] Dr. Evangelist Chicas Lymphocytes/100 WBC (Bld) 5.8 % Critically low 20.5-60.0 [facility] Comment on above: Performed By: #### C BC #### [facility] [address] [place] [address] Dr. Evangelist Chicas MANUAL DIFF REQ NO Normal [facility] Comment on above: Performed By: #### C BC #### [facility] [address] [place] [address] Dr. Evangelist Chicas MCH (RBC) [Entitic mass] 29.3 pg Normal 26.7-34.0 [facility] Comment on above: Performed By: #### C BC #### [facility] [address] [place] [address] Dr. Evangelist Chicas MCHC (RBC) [Mass/Vol] 31.2 g/dL Normal 29.9-35.2 [facility] Comment on above: Performed By: #### C BC #### [facility] [address] [place] [address] Dr. Evangelist Chicas MCV (RBC) [Entitic vol] 93.9 fL Normal 81.0-99.0 [facility] Comment on above: Performed By: #### C BC #### [facility] [address] [place] [address] Dr. Evangelist Chicas MONO # 0.0 103/ul Critically low 0.3-0.8 [facility] Comment on above: Performed By: #### C BC #### [facility] [address] [place] [address] Dr. Evangelist Chicas Monocytes/100 WBC (Bld) 0.6 % Critically low 1.7-12.0 [facility] Comment on above: Performed By: #### C BC #### [facility] [address] [place] [address] Dr. Evangelist Chicas NEUT # 6.0 103/ul Normal 1.4-6.[address] [facility] Comment on above: Performed By: #### C BC #### [facility] [address] [place] [address] Dr. Evangelist Chicas Neutrophils/100 WBC (Bld) 92.9 % Critically high 43.0-75.0 [facility] Comment on above: Performed By: #### C BC #### [facility] [address] [address] [address] Evangelist Chicas Platelet mean volume (Bld) [Entitic vol] 10.8 fL Normal 9.5-13.5 [facility] Comment on above: Performed By: #### C BC #### [facility] [address] [place] [address] Dr. Evangelist Chicas PLT 141 103/ul Critically low 150-450 [facility] Comment on above: Performed By: #### C BC #### [facility] [address] [address] [address] Evangelist Chicas RBC 4.44 106/ul Normal 4.20-5.40 [facility] Comment on above: Performed By: #### C BC #### [facility] [address] [place] [address] Dr. Evangelist Chicas WBC 6.4 103/ul Normal 4.0-11.0 [facility] Comment on above: Performed By: #### C BC #### [facility] [address] [place] [address] Dr. Evangelist Chicas PROF CHEM 8 (BAS METB)on Anion gap [Moles/Vol] 7.5 mmol/L Normal [facility] Comment on above: Performed By: #### B MP #### [facility] [address] [place] [address] Dr. Evangelist Chicas Calcium [Mass/Vol] 8.9 mg/dL Normal 8.5-10.1 [facility] Comment on above: Performed By: #### B MP #### [facility] [address] [place] [address] Dr. Evangelist Chicas Chloride [Moles/Vol] 100 mmol/L Normal 98-107 [facility] Comment on above: Performed By: #### B MP #### [facility] [address] [place] [address] Dr. Evangelist Chicas CO2 [Moles/Vol] 33.9 mmol/L Critically high 21.0-32.0 [facility] Comment on above: Performed By: #### B MP #### [facility] [address] [address] [address] Evangelist Chicas Creatinine [Mass/Vol] 0.65 mg/dL Normal 0.55-1.02 [facility] Comment on above: Performed By: #### B MP #### [facility] [address] [address] [address] Evangelist Chicas EGFR-AF BURUNDIAN >60 Normal >=60 [facility] Comment on above: Performed By: #### B MP #### [facility] [address] [address] [address] Evangelist Chicas EGFR-NON AF BURUNDIAN >60 Normal >=60 [facility] Comment on above: Performed By: #### B MP #### [facility] [address] [place] [address] Dr. Evangelist Chicas Glucose [Mass/Vol] 152 mg/dL Critically high 74-106 [facility] Comment on above: Performed By: #### B MP #### [facility] [address] [place] [address] Dr. Evangelist Chicas Potassium [Moles/Vol] 4.4 mmol/L Normal 3.5-5.1 [facility] Comment on above: Performed By: #### B MP #### [facility] [address] [place] [address] Dr. Evangelist Chicas Sodium [Moles/Vol] 137 mmol/L Normal 136-145 [facility] Comment on above: Performed By: #### B MP #### [facility] [address] [place] [address] Dr. Evangelist Chicas Urea nitrogen [Mass/Vol] 16.0 mg/dL Normal 7.0-18.0 [facility] Comment on above: Performed By: #### B MP #### [facility] [address] [place] [address] Dr. Evangelist Chicas Urea nitrogen/Creatinin e [Mass ratio] 24.6 mg/mg Normal [facility] Comment on above: Performed By: #### B MP #### [facility] [address] [place] [address] Dr. Evangelist Chicas BNPon 11-10-2022 Natriuretic peptide B (Bld) [Mass/Vol] 330.0 pg/mL Normal <=900.[address] [facility] Comment on above: Performed By: #### B MP #### [facility] [address] [place] [address] Dr. Evangelist Chicas CARDIAC LIS ADMITon 023 CK [Catalytic activity/Vol] 40 U/L Normal 26-[address] [facility] Comment on above: Performed By: #### D DIM #### [facility] [address] [place] [address] Dr. Evangelist Chicas CK.MB [Mass/Vol] 1.06 ng/mL Normal <=3.60 [facility] Comment on above: Performed By: #### D DIM #### [facility] [address] [place] [address] Dr. Evangelist Chicas HSTROP 21.6 pg/mL Normal 4.0-51.[address] [facility] Comment on above: Result Comment: CUT- OFF POINTS HAVE BEEN ESTABLISHED BASED ON THE FOURTH UNIVERSAL DEFINITIONS OF MYOCARDIAL INFARCTION. THE UPPER REFERENCE LIMIT (URL) OF TROPONIN, DEFINED THE 99TH PERCENTILE OF cTnI DISTRIBUTION IN A REFERENCE POPULATION, HAS BEEN CONFIRMED THE DECISION THRESHOLD FOR [place] DIAGNOSIS. Performed By: #### D DIM #### [facility] [address] [place] [address] Dr. Evangelist Chicas VANNA 41 ng/mL Normal 9-[address] [facility] Comment on above: Performed By: #### D DIM #### [facility] [address] [place] [address] Dr. Evangelist Chicas CBC AUTO DIFFon 11-10-2022 BASO # 0.1 103/ul Normal 0.0-0.[address] [facility] Comment on above: Performed By: #### B MP #### [facility] [address] [place] [address] Dr. Evangelist Chicas Basophils/100 WBC (Bld) 0.7 % Normal 0.2-2.[address] [facility] Comment on above: Performed By: #### B MP #### [facility] [address] [place] [address] Dr. Evangelist Chicas EO # 0.1 103/ul Normal 0.0-0.[address] [facility] Comment on above: Performed By: #### B MP #### [facility] [address] [place] [address] Dr. Evangelist Chicas Eosinophils/100 WBC (Bld) 1.1 % Normal 0.9-7.0 [facility] Comment on above: Performed By: #### B MP #### [facility] [address] [place] [address] Dr. Evangelist Chicas Erythrocyte distribution width (RBC) [Ratio] 12.8 % Normal 11.0-15.0 [facility] Comment on above: Performed By: #### B MP #### [facility] [address] [place] [address] Dr. Evangelist Chicas Hematocrit (Bld) [Volume fraction] 41.1 % Normal 36.0-48.0 [facility] Comment on above: Performed By: #### B MP #### [facility] [address] [place] [address] Dr. Evangelist Chicas Hemoglobin (Bld) [Mass/Vol] 13.2 g/dL Normal 12.0-16.[address] [facility] Comment on above: Performed By: #### B MP #### [facility] [address] [place] [address] Dr. Evangelist Chicas IG # 0.02 10e3/ul Normal 0.00-0.[address] [facility] Comment on above: Performed By: #### B MP #### [facility] [address] [place] [address] Dr. Evangelist Chicas IG % 0.3 % Normal 0.0-0.[address] [facility] Comment on above: Performed By: #### B MP #### [facility] [address] [place] [address] Dr. Evangelist Chicas LYMPH # 0.7 103/ul Critically low 1.2-3.8 [facility] Comment on above: Performed By: #### B MP #### [facility] [address] [place] [address] Dr. Evangelist Chicas Lymphocytes/100 WBC (Bld) 9.5 % Critically low 20.5-60.0 [facility] Comment on above: Performed By: #### B MP #### [facility] [address] [place] [address] Dr. Evangelist Chicas MANUAL DIFF REQ NO Normal [facility] Comment on above: Performed By: #### B MP #### [facility] [address] [place] [address] Dr. Evangelist Chicas MCH (RBC) [Entitic mass] 29.6 pg Normal 26.7-34.[address] [facility] Comment on above: Performed By: #### B MP #### [facility] [address] [place] [address] Dr. Evangelist Chicas MCHC (RBC) [Mass/Vol] 32.1 g/dL Normal 29.9-35.2 [facility] Comment on above: Performed By: #### B MP #### [facility] [address] [place] [address] Dr. Evangelist Chicas MCV (RBC) [Entitic vol] 92.2 fL Normal 81.0-99.0 [facility] Comment on above: Performed By: #### B MP #### [facility] [address] [place] [address] Dr. Evangelist Chicas MONO # 0.6 103/ul Normal 0.3-0.[address] [facility] Comment on above: Performed By: #### B MP #### [facility] [address] [place] [address] Dr. Evangelist Chicas Monocytes/100 WBC (Bld) 8.1 % Normal 1.7-12.[address] [facility] Comment on above: Performed By: #### B MP #### [facility] [address] [place] [address] Dr. Evangelist Chicas NEUT # 6.1 103/ul Normal 1.4-6.[address] [facility] Comment on above: Performed By: #### B MP #### [facility] [address] [place] [address] Dr. Evangelist Chicas Neutrophils/100 WBC (Bld) 80.3 % Critically high 43.0-75.0 [facility] Comment on above: Performed By: #### B MP #### [facility] [address] [place] [address] Dr. Evangelist Chicas Platelet mean volume (Bld) [Entitic vol] 9.8 fL Normal 9.5-13.5 [facility] Comment on above: Performed By: #### B MP #### [facility] [address] [address] [address] Evangelist Chicas PLT 180 103/ul Normal 150-450 [facility] Comment on above: Performed By: #### B MP #### [facility] [address] [place] [address] Dr. Evangelist Chicas RBC 4.46 106/ul Normal 4.20-5.40 [facility] Comment on above: Performed By: #### B MP #### [facility] [address] [place] [address] Dr. Evangelist Chicas WBC 7.6 103/ul Normal 4.0-11.[address] [facility] Comment on above: Performed By: #### B MP #### [facility] [address] [place] [address] Dr. Evangelist Chicas CTA CHEST WO W [...] DEL ENRIQUE Date: 2022-11-10 17:[address] [facility] Covid-19 PCR (CVDTB)on SARS-CoV-2 (COVID-19) RNA SHENG+probe Ql (Unsp spec) Not detected Normal NOT DETECTED [facility] Comment on above: Result Comment: When [...] for this test is supported by the [place] of Health and Human Service's declaration that [...] used). Performed By: #### B MP #### [facility] [address] [place], [place] [address] Dr. Evangelist Chicas D-DIMERon 11-10-2022 D-DIMER 0.63 mg/L FEU Critically high <=0.59 [facility] Comment on above: Performed By: #### D DIM #### [facility] [address] [place], [place] [address] Dr. Evangelist Chicas D-DIMER COMMENTS SEE BELOW Normal [facility] Comment on above: Result Comment: [...] hospitalization. Performed By: #### D DIM #### [facility] [address] [place] [address] Dr. Evangelist Chicas ER URINE PROFILEon 3 Bilirubin Ql (U) Negative Normal NEGATIVE [facility] Comment on above: Performed By: #### U MICRO, ERUR #### [facility] [address] [place] [address] Dr. Evangelist Chicas Clarity (U) CLEAR Normal CLEAR [facility] Comment on above: Performed By: #### U MICRO, ERUR #### [facility] [address] [place] [address] Dr. Evangelist Chiacs Color (U) LT. YELLOW Normal YELLOW [facility] Comment on above: Performed By: #### U MICRO, ERUR #### [facility] [address] [place] [address] Dr. Evangelist NURD A micrscopic examination will be performed if indicated. Normal [facility] Comment on above: Performed By: #### U MICRO, ERUR #### [facility] [address] [place] [address] Dr. Evangelist Chicas Glucose Ql (U) Negative Normal NEGATIVE [facility] Comment on above: Performed By: #### U MICRO, ERUR #### [facility] [address] [place] [address] Dr. Evangelist Chicas Hemoglobin Ql (U) TRACE-INTACT Abnormal NEGATIVE [facility] Comment on above: Performed By: #### U MICRO, ERUR #### [facility] [address] [place] [address] Dr. Evangelist Chicas Ketones Ql (U) Negative Normal NEGATIVE [facility] Comment on above: Performed By: #### U MICRO, ERUR #### [facility] [address] [place] [address] Dr. Evangelist Chicas LEUKOCYTES Negative Normal NEGATIVE [facility] Comment on above: Performed By: #### U MICRO, ERUR #### [facility] [address] [place] [address] Dr. Evangelist Chicas Nitrite Ql (U) Negative Normal NEGATIVE [facility] Comment on above: Performed By: #### U MICRO, ERUR #### [facility] [address] [place] [address] Dr. Evangelist Chicas pH (U) 6.0 [pH] Normal 5-9 [facility] Comment on above: Performed By: #### U MICRO, ERUR #### [facility] [address] [place] [address] Dr. Evangelist Chicas SPEC GRAVITY 1.010 Normal 1.005-<=1.025 [facility] Comment on above: Performed By: #### U MICRO, ERUR #### [facility] [address] [place] [address] Dr. Evangelist Chicas UA PROTEIN Negative Normal NEGATIVE/ TRACE [facility] Comment on above: Performed By: #### U MICRO, ERUR #### [facility] [address] [place] [address] Dr. Evangelist Chicas UR MICRO IND INDICATED Normal [facility] Comment on above: Performed By: #### U MICRO, ERUR #### [facility] [address] [place] [address] Dr. Evangelist Chicas Urobilinogen Qn (U) 0.2 {Amalia'U}/dL Normal 0.2 - 1.0 [facility] Comment on above: Performed By: #### U MICRO, ERUR #### [facility] [address] [place] [address] Dr. Evangelist Chicas INFLUENZA A AND B AGon 11-10 INFLUANEGH SEE BELOW Normal [facility] Comment on above: Result Comment: Nega tive for Flu A protein angiten. Infection due to Flu A cannot be ruled out. Flu A angiten in the sample may be below the detection limit of the test. Performed By: #### D DIM #### [facility] [address] [place] [address] Dr. Evangelist Chicas [facility] SEE BELOW Normal [facility] Comment on above: Result Comment: Nega tive for Flu B protein antigen. Infection due to Flu B cannot be ruled out. Flu B antigen in the sample may be below the detection limit of the test. Performed By: #### D DIM #### [facility] [address] [place] [address] Dr. Evangelist Chicas INFLUENZA A AG Negative Normal NEGATIVE SEE COMMENT [facility] Comment on above: Performed By: #### D DIM #### [facility] [address] [place] [address] Dr. Evangelist Chicas INFLUENZA B AG Negative Normal NEGATIVE SEE COMMENT [facility] Comment on above: Performed By: #### D DIM #### [facility] [address] [place] [address] Dr. Evangelist Chicas PROF 14(COMP METB)on 023 Albumin [Mass/Vol] 3.1 g/dL Critically low 3.4-5.[address] [facility] Comment on above: Performed By: #### B MP #### [facility] [address] [place] [address] Dr. Evangelist Chicas Albumin/Globulin [Mass ratio] 0.7 {ratio} Normal [facility] Comment on above: Performed By: #### B MP #### [facility] [address] [place] [address] Dr. Evangelist Chicas ALP [Catalytic activity/Vol] 108 U/L Normal 46-[address] [facility] Comment on above: Performed By: #### B MP #### [facility] [address] [place] [address] Dr. Evangelist Chicas ALT [Catalytic activity/Vol] 20 U/L Normal 14-59 [facility] Comment on above: Performed By: #### B MP #### [facility] [address] [place] [address] Dr. Evangelist Chicas Anion gap [Moles/Vol] 6.0 mmol/L Normal [facility] Comment on above: Performed By: #### B MP #### [facility] [address] [address] [address] Evangelist Chicas AST [Catalytic activity/Vol] 16 U/L Normal 15-37 [facility] Comment on above: Performed By: #### B MP #### [facility] [address] [address] [address] Evangelist Chicas Bilirubin [Mass/Vol] 0.6 mg/dL Normal 0.2-1.0 [facility] Comment on above: Performed By: #### B MP #### [facility] [address] [address] [address] Evangelist Chicas Calcium [Mass/Vol] 9.1 mg/dL Normal 8.5-10.1 [facility] Comment on above: Performed By: #### B MP #### [facility] [address] [address] [address] Evangelist Chicas Chloride [Moles/Vol] 97 mmol/L Critically low 98-107 [facility] Comment on above: Performed By: #### B MP #### [facility] [address] [address] [address] Evangelist Chicas CO2 [Moles/Vol] 36.9 mmol/L Critically high 21.0-32.0 [facility] Comment on above: Performed By: #### B MP #### [facility] [address] [address] [address] Evangelist Chicas Creatinine [Mass/Vol] 0.71 mg/dL Normal 0.55-1.02 [facility] Comment on above: Performed By: #### B MP #### [facility] [address] [address] [address] Evangelist Chicas EGFR-AF BURUNDIAN >60 Normal >=60 [facility] Comment on above: Performed By: #### B MP #### [facility] [address] [address] [address] Evangelist Chicas EGFR-NON AF BURUNDIAN >60 Normal >=60 [facility] Comment on above: Performed By: #### B MP #### [facility] [address] [address] [address] Evangelist Chicas Globulin (S) [Mass/Vol] 4.4 g/dL Normal [facility] Comment on above: Performed By: #### B MP #### [facility] [address] [address] [address] Evangelist Chicas Glucose [Mass/Vol] 124 mg/dL Critically high 74-106 [facility] Comment on above: Performed By: #### B MP #### [facility] [address] [address] [address] Evangelist Chicas Potassium [Moles/Vol] 3.9 mmol/L Normal 3.5-5.1 [facility] Comment on above: Performed By: #### B MP #### [facility] [address] [place] [address] Dr. Evangelist Chicas Protein [Mass/Vol] 7.5 g/dL Normal 6.4-8.2 [facility] Comment on above: Performed By: #### B MP #### [facility] [address] [place] [address] Dr. Evangelist Chicas Sodium [Moles/Vol] 136 mmol/L Normal 136-145 [facility] Comment on above: Performed By: #### B MP #### [facility] [address] [place] [address] Dr. Evangelist Chicas Urea nitrogen [Mass/Vol] 17.0 mg/dL Normal 7.0-18.0 [facility] Comment on above: Performed By: #### B MP #### [facility] [address] [place] [address] Dr. Evangelist Chicas Urea nitrogen/Creatinin e [Mass ratio] 23.9 mg/mg Normal [facility] Comment on above: Performed By: #### B MP #### [facility] [address] [place] [address] Dr. Evangelist Chicas URINE MICROSCOPIC ONLYon BACTERIA NONE SEEN Normal NONE SEEN [facility] Comment on above: Performed By: #### U MICRO, ERUR #### [facility] [address] [place] [address] Dr. Evangelist Chicas Bacteria identified Cx Nom (U) NOT INDICATED Normal [facility] Comment on above: Performed By: #### U MICRO, ERUR #### [facility] [address] [place] [address] Dr. Evangelist Chicas CAST NONE SEEN Normal NONE SEEN [facility] Comment on above: Performed By: #### U MICRO, ERUR #### [facility] [address] [address] [address] Evangelist Chicas Crystals LM Nom (Urine sed) NONE SEEN Normal NONE SEEN [facility] Comment on above: Performed By: #### U MICRO, ERUR #### [facility] [address] [place] [address] Dr. Evangelist Chicas Epithelial cells LM Ql (Urine sed) FEW Abnormal NONE SEEN /RARE [facility] Comment on above: Performed By: #### U MICRO, ERUR #### [facility] [address] [place] [address] Dr. Evangelist Chicas MUCOUS NONE SEEN Normal NONE SEEN [facility] Comment on above: Performed By: #### U MICRO, ERUR #### [facility] [address] [place] [address] Dr. Evangelist Chicas RBC 0-2 Normal 0-[address] [facility] Comment on above: Performed By: #### U MICRO, ERUR #### [facility] [address] [place] [address] Dr. Evangelist Chicas WBC NONE SEEN Normal NONE SEEN [facility] Comment on above: Performed By: #### U MICRO, ERUR #### [facility] [address] [place] [address] Dr. Evangelist Chicas XR CHEST 1 Von [...] by: JH JAIN Date: 2022-11-10 15:24 Normal [facility] Vital Signs Date Time Vital Sign Value Performing Clinician Facility 08-15-2025 11:20-0400 Body height 162.56 cm Mane Lee MD Work Phone: [facility] 08-15-2025 11:20-0400 Body mass index (BMI) [Ratio] 46.2 kg/m2 Mane Lee MD Work Phone: [facility] 08-15-2025 11:20-040 Body temperature 97.5 [degF] Mane Lee MD Work Phone: [facility] 08-15-2025 11:20-0400 Body weight 122.07 kg Mane Lee MD Work Phone: [facility] 08-15-2025 11:20-0400 Diastolic blood pressure 78 mm[Hg] Mane Lee MD Work Phone: [facility] 08-15-2025 11:20-0400 Heart rate 105 /min Mane Lee MD Work Phone: [facility] 08-15-2025 11:20-0400 Respiratory rate 18 /min Mane Lee MD Work Phone: [facility] 08-15-2025 11:20-0400 SaO2% (BldA) [Mass fraction] 95 % Mane Lee MD Work Phone: [facility] 08-15-2025 11:20-0400 Systolic blood pressure 130 mm[Hg] Mane Lee MD Work Phone: [facility] 07-22-2025 10:06-0400 Body height 160.02 cm Mane Lee MD Work Phone: [facility] 07-22-2025 10:06-0400 Body mass index (BMI) [Ratio] 46.7 kg/m2 Mane Lee MD Work Phone: [facility] 07-22-2025 10:06-0400 Body temperature 97.1 [degF] Mane Lee MD Work Phone: [facility] 07-22-2025 10:06-0400 Body weight 119.74 kg Mane Lee MD Work Phone: [facility] 07-22-2025 10:06-0400 Diastolic blood pressure 70 mm[Hg] Mane Lee MD Work Phone: [facility] 07-22-2025 10:06-0400 Heart rate 89 /min Mane Lee MD Work Phone: [facility] 07-22-2025 10:06-0400 Respiratory rate 20 /min Mane Lee MD Work Phone: [facility] 07-22-2025 10:06-0400 SaO2% (BldA) [Mass fraction] 97 % Mane Lee MD Work Phone: [facility] 07-22-2025 10:06-0400 Systolic blood pressure 124 mm[Hg] Mane Lee MD Work Phone: [facility] 04-14-2025 10:22-0400 Body height 162.6 cm Mane Lee MD Work Phone: [facility] 04-14-2025 10:22-0400 Body mass index (BMI) [Ratio] 46.35 kg/m2 Mane Lee MD Work Phone: [facility] 04-14-2025 10:22-0400 Body temperature 97.3 [degF] Mane Lee MD Work Phone: [facility] 04-14-2025 10:22-0400 Body weight 122.47 kg Mane Lee MD Work Phone: [facility] 04-14-2025 10:22-0400 Diastolic blood pressure 74 mm[Hg] Mane Lee MD Work Phone: [facility] 04-14-2025 10:22-0400 Heart rate 87 /min Mane Lee MD Work Phone: [facility] 04-14-2025 10:22-0400 Respiratory rate 20 /min Mane Lee MD Work Phone: [facility] 04-14-2025 10:22-0400 SaO2% (BldA) [Mass fraction] 97 % Mane Lee MD Work Phone: [facility] 04-14-2025 10:22-0400 Systolic blood pressure 126 mm[Hg] Mane Lee MD Work Phone: [facility] 02-14-2025 11:30-0400 Body height 162.6 cm Mane Lee MD Work Phone: [facility] 02-14-2025 11:30-0400 Body mass index (BMI) [Ratio] 46.86 kg/m2 Mane Lee MD Work Phone: [facility] 02-14-2025 11:30-0400 Body temperature 97.81 [degF] Mane Lee MD Work Phone: [facility] 02-14-2025 11:30-0400 Body weight 123.83 kg Mane Lee MD Work Phone: [facility] 02-14-2025 11:30-0400 Diastolic blood pressure 70 mm[Hg] Mane Lee MD Work Phone: [facility] 02-14-2025 11:30-0400 Heart rate 89 /min Mane Lee MD Work Phone: [facility] 02-14-2025 11:30-0400 Respiratory rate 20 /min Mane Lee MD Work Phone: [facility] 02-14-2025 11:30-0400 SaO2% (BldA) [Mass fraction] 96 % Mane Lee MD Work Phone: [facility] 02-14-2025 11:30-0400 Systolic blood pressure 134 mm[Hg] Mane Lee MD Work Phone: [facility] 01-10-2025 10:38-0500 Body height 162.6 cm Mane Lee MD Work Phone: [facility] 01-10-2025 10:38-0500 Body mass index (BMI) [Ratio] 48.58 kg/m2 Mane Lee MD Work Phone: [facility] 01-10-2025 10:38-0500 Body temperature 97.5 [degF] Mane Lee MD Work Phone: [facility] 01-10-2025 10:38-0500 Body weight 128.37 kg Mane Lee MD Work Phone: [facility] 01-10-2025 10:38-0500 Diastolic blood pressure 68 mm[Hg] Mane Lee MD Work Phone: [facility] 01-10-2025 10:38-0500 Heart rate 96 /min Mane Lee MD Work Phone: [facility] 01-10-2025 10:38-0500 Respiratory rate 22 /min Mane Lee MD Work Phone: [facility] 01-10-2025 10:38-0500 SaO2% (BldA) [Mass fraction] 98 % Mane Lee MD Work Phone: [facility] 01-10-2025 10:38-0500 Systolic blood pressure 154 mm[Hg] Mane Lee MD Work Phone: [facility] 08-04-2024 11:22-0400 Body height 160 cm Mane Lee MD Work Phone: [facility] 08-04-2024 11:22-0400 Body mass index (BMI) [Ratio] 47.12 kg/m2 Mane Lee MD Work Phone: [facility] 08-04-2024 11:22-0400 Body temperature 97.3 [degF] Mane Lee MD Work Phone: [facility] 08-04-2024 11:22-0400 Body weight 120.66 kg Mane Lee MD Work Phone: [facility] 08-04-2024 11:22-0400 Diastolic blood pressure 74 mm[Hg] Mane Lee MD Work Phone: [facility] 08-04-2024 11:22-0400 Heart rate 99 /min Mane Lee MD Work Phone: [facility] 08-04-2024 11:22-0400 Respiratory rate 22 /min Mane Lee MD Work Phone: [facility] 08-04-2024 11:22-0400 SaO2% (BldA) [Mass fraction] 96 % Mane Lee MD Work Phone: [facility] 08-04-2024 11:22-0400 Systolic blood pressure 140 mm[Hg] Mane Lee MD Work Phone: [facility] 07-01-2024 10:31-0400 Body height 160 cm Mane Lee MD Work Phone: [facility] 07-01-2024 10:31-0400 Body mass index (BMI) [Ratio] 47.65 kg/m2 Mane Lee MD Work Phone: [facility] 07-01-2024 10:31-0400 Body temperature 97.11 [degF] Mane Lee MD Work Phone: [facility] 07-01-2024 10:31-0400 Body weight 122.02 kg Mane Lee MD Work Phone: [facility] 07-01-2024 10:31-0400 Diastolic blood pressure 82 mm[Hg] Mane Lee MD Work Phone: [facility] 07-01-2024 10:31-0400 Heart rate 90 /min Mane Lee MD Work Phone: [facility] 07-01-2024 10:31-0400 Respiratory rate 22 /min Mane Lee MD Work Phone: [facility] 07-01-2024 10:31-0400 SaO2% (BldA) [Mass fraction] 97 % Mane Lee MD Work Phone: [facility] 07-01-2024 10:31-0400 Systolic blood pressure 130 mm[Hg] Mane Lee MD Work Phone: [facility] 12-23-2023 13:24-0500 Body height 160 cm Mane Lee MD Work Phone: [facility] 12-23-2023 13:24-0500 Body mass index (BMI) [Ratio] 49.25 kg/m2 Mane Lee MD Work Phone: [facility] 12-23-2023 13:24-0500 Body temperature 97.3 [degF] Mane Lee MD Work Phone: [facility] 12-23-2023 13:24-0500 Body weight 126.1 kg Mane Lee MD Work Phone: [facility] 12-23-2023 13:24-0500 Diastolic blood pressure 80 mm[Hg] Mane Lee MD Work Phone: [facility] 12-23-2023 13:24-0500 Heart rate 96 /min Mane Lee MD Work Phone: [facility] 12-23-2023 13:24-0500 SaO2% (BldA) [Mass fraction] 96 % Mane Lee MD Work Phone: [facility] 12-23-2023 13:24-0500 Systolic blood pressure 140 mm[Hg] Mane Lee MD Work Phone: [facility] Healthcare Encounters Encounter Date Encounter Type Care Provider Facility Start: 08-15-2025 End: 08-15-2025 ambulatory Mane Lee MD Work Phone: [facility] Work Phone: Start: 08-15-2025 End: 08-15-2025 Patient encounter procedure Mane Lee MD -[facility] Work Phone: Start: 08-08-2025 End: 08-08-2025 Patient encounter procedure Mane Lee MD -CT Scan [facility] [place] Work Phone: Start: 08-08-2025 End: 08-08-2025 ambulatory Mane Lee MD Work Phone: [facility] Work Phone: Start: 07-22-2025 End: 07-22-2025 ambulatory Mane Lee MD Work Phone: [facility] Work Phone: Start: 07-22-2025 End: 07-22-2025 Patient encounter procedure Mane Lee MD -[facility] Work Phone: Start: 05-27-2025 End: 05-27-2025 Refill [...] Result Encounter Mane Lee MD Work Phone: [facility] Unsolicited Start: 01-12-2025 End: 01-12-2025 Clinisync Result Encounter Mane Lee MD Work Phone: [facility] Unsolicited Start: 01-10-2025 End: 01-10-2025 Bamboo flowsheet Mane Lee MD Work Phone: [facility] Start: 01-10-2025 End: 01-10-2025 Bamboo flowsheet Mane Lee MD Work Phone: [facility] Start: 01-10-2025 End: 01-10-2025 Patient encounter procedure Mane Lee MD Work Phone: [facility] Healthcare Start: 01-10-2025 End: 01-10-2025 Periodic preventive med est patient 40-64yrs Mane Lee MD Work Phone: [facility] Comment on above: Annual [...] Bamboo flowsheet Mane Lee MD Work Phone: [facility] Start: 08-04-2024 End: 08-04-2024 Bamboo flowsheet Mane Lee MD Work Phone: [facility] Start: 08-04-2024 End: 08-04-2024 ambulatory MANE LEE Not Available Start: 08-04-2024 End: 08-04-2024 Office outpatient visit 15 minutes Mane Lee MD Work Phone: [facility] Comment on above: Acute [...] 03-22-2024 End: 03-23-2024 ambulatory Corine Frye MD Facility:[facility] [place] Start: 01-26-2024 End: 01-27-2024 ambulatory Corine Frye MD Facility: [place] Start: 12-29-2023 End: 12-30-2023 ambulatory Corine Frye MD Facility: [facility] Start: 12-23-2023 Bamboo flowsheet Mane Lee [...] type (CMS/HCC) Start: 12-10-2023 End: 12-10-2023 ambulatory MD Mane Lee Work Phone: [facility] Work Phone: Start: 12-10-2023 End: 12-10-2023 Patient encounter procedure MD Mane Lee Work Phone: [facility] Work Phone: Start: 08-25-2023 End: 08-26-2023 ambulatory Corine Frye MD Facility:[facility] [place] Start: 01-29-2023 End: 01-30-[address] MANE LEE Facility:[facility] Start: 11-10-2022 End: 11-14-2022 Evaluation and management of inpatient DR MANE LEE Facility:[facility] Procedures Date Procedure Procedure Detail Performing Clinician Start: 08-08-2025 CT of lungs Mane sprague MD Work Phone: Start: 01-12-2025 ALL CBC WITH AUTO DIFF [...] for malign ant neoplasm of colon [facility] Start: 08-15-2025 Patient referral [facility] Work Phone: Start: 07-22-2025 End: 07-22-2025 Patient encounter procedure 07/22/2025 10:00 AM EDT Office Visit [facility] [address] [place] [address] Mane Lee MD [address] [place] [address] [facility] Start: 07-11-2025 Influenza vaccination Influenza Vacc ine (#1) [facility] Start: 06-25-2025 Screening for malign ant neoplasm of breast Mammogram [facility] Start: 04-14-2025 End: 04-14-2025 Patient encounter procedure 04/14/2025 10:15 AM EDT Office Visit [facility] [address] [place] [address] Mane Lee MD [address] [place] [phone] [facility] Start: 04-12-2025 End: 04-12-2025 Patient encounter procedure 04/12/2025 10:30 AM EDT Office Visit [facility] [address] [place] [address] Mane Lee MD [address] [place] [phone] [facility] Start: 02-14-2025 End: 02-14-2025 Patient encounter procedure [facility] Comment on above: Arrived Start: 01-10-2025 End: 01-10-2026 Basic metabolic 1998 panel - Serum or Plasma Basic metabolic panel Lab Routine Annual physical exam Expected: 01/10/2025 (Approximate), Expires: 01/10/2026 [facility] Comment on above: Expected: 01/10/2025 (Approximate), Expires: 01/10/2026 Start: 01-10-2025 End: 01-10-2026 CBC W Auto Differential panel - Blood CBC and differential Lab Routine Annual physical exam Expected: 01/10/2025 (Approximate), Expires: 01/10/2026 [facility] Comment on above: Expected: 01/10/2025 (Approximate), Expires: 01/10/2026 Start: 01-10-2025 End: 01-10-2026 CT Chest for screening WO contrast CT lung screening low dose Imaging Routine Cigarette smoker Expected: 01/10/2025, Expires: 01/10/2026 [facility] Comment on above: Expected: 01/10/2025 , Expires: 01/10/2026 Start: 01-10-2025 End: 01-10-2026 Hemoglobin A1c/Hemoglobin.total in Blood Hemoglobin A1c Lab Routine Annual physical exam Expected: 01/10/2025 (Approximate), Expires: 01/10/2026 [facility] Work Phone: Comment on above: Expected: 01/10/2025 (Approximate), Expires: 01/10/2026 Start: 01-10-2025 End: 01-10-2026 Hepatic function 2000 panel - Serum or Plasma Hepatic function panel Lab Routine Annual physical exam Expected: 01/10/2025 (Approximate), Expires: 01/10/2026 [facility] Comment on above: Expected: 01/10/2025 (Approximate), Expires: 01/10/2026 Start: 01-10-2025 End: 01-10-2026 Lipid 1996 panel - Serum or Plasma Lipid panel Lab Routine Annual physical exam Expected: 01/10/2025 (Approximate), Expires: 01/10/2026 [facility] Comment on above: Expected: 01/10/2025 (Approximate), Expires: 01/10/2026 Start: 01-10-2025 End: 01-10-2026 Thyrotropin [Units/volume] in Serum or Plasma TSH Lab Routine Annual physical exam Expected: 01/10/2025 (Approximate), Expires: 01/10/2026 [facility] Comment on above: Expected: 01/10/2025 (Approximate), Expires: 01/10/2026 Start: 01-10-2025 End: 01-10-2025 Patient encounter procedure [facility] Comment on above: Arrived Start: 07-11-2024 Influenza vaccination Influenza Vacc ine (#1) [facility] Start: 07-01-2024 End: 07-01-2024 Patient encounter procedure 07/01/2024 10:30 AM EDT Office Visit [facility] [address] [place] [address] Mane Lee MD [address] [place] [phone] Arrived [facility] Comment on above: Arrived Start: 02-24-2024 End: 02-24-2024 Patient encounter procedure 02/24/2024 9:00 AM EDT Office Visit [facility] [address] [place] [phone] Mane Lee MD [address] [place] [phone] [facility] Start: 01-30-2024 Screening for malign ant neoplasm of breast Mammogram [facility] Start: 12-23-2023 End: 12-23-2023 Patient encounter procedure 12/23/2023 1:15 PM EST Office Visit [facility] [address] [place] [address] Mane Lee MD [address] [place] [address] Arrived [facility] Comment on above: Arrived Start: 1993 Screening for malign ant neoplasm of cervix [facility] Start: 1984 Screening for malign ant neoplasm of cervix Pap Smear [facility] Start: 1963 Screening for malign ant neoplasm of colon [facility] MR Knee - left WO contrast [facility] Patient referral [facility] Work Phone: Immunizations Immunization Date Immunization Notes Care Provider Fa cility 11-24-2024 influenza virus vacc ine, unspecified formulation Mane Lee MD Work Phone: [facility] 08-21-2023 influenza virus vacc ine, unspecified formulation Mane Lee MD Work Phone: [facility] Healthcare Payers Date Payer Category Payer Self-pay 2023 [facility] Shield [employer] [id number] 2023 Unknown [id number] 2022 Unknown [id number]. [id number] 1963 Unknown [id number] 2.16.840.1.570638.3.579.2. 593 1963 Unknown [id number] 2.16.840.1.100333.3.579.2. 593 1963 Unknown [id number] 2.16.840.1.932846.3.579.2. 196 1963 Unknown [id number] 2.16.840.1.072799.3.579.2. 196 1963 Unknown [id number] 2.16.840.1.298448.3.579.2. 196 1963 Unknown [id number] 2.16.840.1.340211.3.579.2. 196 1963 Unknown [id number] 2.16.840.1.119746.3.579.2. 1259 1963 Unknown [id number] 2.16.840.1.072800.3.579.2. 1259 1963 Unknown [id number] 2.16.840.1.149171.3.579.2. 1259 1963 Unknown [id number] 2.16.840.1.295214.3.579.2. 1259 1963 Unknown [id number] 2.16.840.1.209104.3.579.2. 1259 1963 Unknown [id number] 2..840.1.883495.3.579.2. 1259 1963 Unknown [id number] 2..840.1.984082.3.579.2. 1259 1959 Unknown [id number] Unknown [facility] [id number] Unknown [id number]. 531 Social History Date Type Detail Facility Tobacco smoking stat [facility] Unknown if ever smoked [facility] Work Phone: Start: 1965 Sex Assigned At Female F [facility] Start: 10-31-2023 End: 08-15-2025 Tobacco smoking status ALIS Smokes tobacco daily [facility] History of [...] file [facility] Sex Female (finding) [facility] Clinical Notes 12-23-2023 to 08-15-2025 Note Date & Type Note Facility 08-15-2025 Hospital Discharg e instructions Ambulatory OrdersReferral to Orthopedic Surgery Time Frame: 08/15/25, Location: None [facility] Work Phone: 08-08-2025 Radiology Diagnostic study note [facility] Main [place] [address] [place] [address] CT Scan Report Signed Patient: Lawrence Harrison MR#: [id number] : 1965 Acct:[id number] Age/Sex: 59 / F ADM Date: 5 Loc: CT Room: Type: [facility] Attending Dr: Mane Lee MD Copies to: Mane Lee MD~ Ordering Provider: Mane Lee MD Date of Service: 08/08/25 CT/CT lung screening: F17.210 - Nicotine dependence, cigarettes, uncomplicated CT CHEST WITHOUT CONTRAST, LOW DOSE SCREENING: CLINICAL DATA: A 59-year old current smoker, smoking for 35 pack-years. COMPARISON: None TECHNIQUE: Noncontrast axial CT scan images of the chest were obtained under thelow dose screening CT protocol. Coronal and sagittal [...] Jr., D.OMartell 08/08/2025 12:43 PM Dictation Location: [place] [address] Transcribed By: [facility] 08/08/25 1243 Dictated By: Owen Smith Jr, DO 08/08/25 1242 Signed By: 08/08/25 1243 [facility] 07-22-2025 Evaluation note Diagnosis Onset Date Resolution Benign essential HTN acute Jul 9:49am Class 3 severe obesity due to excess calories with serious comorbidity and acute July 22, 2025 9:49am COPD (chronic obstructive pulmonary disease) acute July 22, 2025 9:49am Degenerative lumbar spinal stenosis acute July 22, 2025 9:49am Leg edema acute July 9:49am Primary osteoarthritis of left knee acute July 22, 2025 9:49am [facility] Work Phone: 1(723) 145-230209-12-2025 Evaluation note* Diagnosis Onset Date Resolution Status Admit Date Benign essential HTN acute Jul 9:49am Class 3 severe obesity due t o excess calories with serious comorbidity and acute July 22, 2025 9:49am COPD (chronic obstructive pulmonary disease) acute July 9:49am Degenerative lumbar spinal stenosis acute July 22, 2025 9:49am Leg edema acute July 9:49am Primary osteoarthritis of le ft knee acute July 22, 2025 9:49am Internal derangement of left knee acute August 15 10:57am [facility] Work Phone: 1(733) 510-732106-05-2025 History of Present illness Narrative* Mane Lee MD - 04/14/2025 11:08 AM EDTAssociated Problem(s): Leg edema Edema controlled with lasix. Elevate legs PRN. * Mane Lee MD - 04/14/2025 11:08 AM EDTAssociated Problem(s): Essential hypertension, benign (CMS/HCC) BP controlled and monitor PRN. * Mane Lee MD - 04/14/2025 11:08 AM EDTAssociated Problem(s): COPD (chronic obstructive pulmonary disease) ([facility]) Breathing stable and encouraged to quit smoker. Continue inhalers. * Mane Lee MD - 04/14/2025 11:08 AM EDTAssociated Problem(s): Class 3 severe obesity due to [...] develop new or worsening symptoms contact office. * Mane Lee MD - 04/14/2025 10:15 AM EDT Images from the original note were not [...] medication without side effects except mild dry mouth.Not as hungry with medication. Smaller portions and [...] serious comorbidity and body mass index (BMI) of45.0 to 49.9 in adult Patient doing well [...] (Adipex-P) 37.5 MG tablet documented in this encounterAshlee [place] [id number] History of Present illness Narrative* Mane Lee MD - 02/14/2025 11:50 AM EDTAssociated Problem(s): Leg edema Edema controlled with lasix. Elevate legs PRN. * Mane Lee MD - 02/14/2025 11:50 AM EDTAssociated Problem(s): Essential hypertension, benign (CMS/HCC) BP controlled and monitor PRN. * Mane Lee MD - 02/14/2025 11:50 AM EDTAssociated Problem(s): COPD (chronic obstructive pulmonary disease) ([facility]) Breathing stable and encouraged to quit smoker. Continue inhalers. * Mane Lee MD - 02/14/2025 11:50 AM EDTAssociated Problem(s): Class 3 severe obesity due to [...] develop new or worsening symptoms contact office. * Mane Lee MD - 02/14/2025 11:00 AM EDT Images from the original note were not [...] swelling at end of day and if onfeet a lot. Edema improved in am and [...] serious comorbidity and body mass index (BMI) of45.0 to 49.9 in adult Patient doing well [...] worsening symptoms contact office. documented in this encounterSaint [facility] [id number] History of Present illness Narrative* Mane Lee MD - 01/10/2025 11:07 AM ESTAssociated Problem(s): Cigarette smoker Check low dose CT chest * Mane Lee MD - 01/10/2025 11:06 AM ESTAssociated Problem(s): Essential hypertension, benign ([facility]) BP elevated today but previously controlled. Monitor PRN. * Mane Lee MD - 01/10/2025 11:06 AM ESTAssociated Problem(s): COPD (chronic obstructive pulmonary disease) ([facility]) Breathing stable and encouraged to quit smoker. Continue inhalers. * Mane Lee MD - 01/10/2025 11:06 AM ESTAssociated Problem(s): Class 3 severe obesity due to excess calories with serious comorbidity and body mass index (BMI) of 45.0 to 49.9 in adult ([facility]) Patient overweight and difficult time losing weight. [...] month. OARRS reviewed. Continue medications as prescribed. * Mane Lee MD - 01/10/2025 11:05 AM ESTAssociated Problem(s): Annual physical exam Due for labs. Discussed proper diet and regular aerobic exercise. Need aerobic exercise 5-6 days a week for 30 minutes at a time. Smaller portions and limit total calories. Colonoscopy every 10 years. Tetanus every 10 years. Advised not to smoke. * Mane eLe MD - 01/10/2025 10:30 AM EST Images from the original note were not included. Subjective Patient ID: Lawrence Harrison is a 59 y.o. female who presents for Follow-up (6m ) and Back Pain (Getting bad again). Presents for annual PE. Patient stable today. Weight up 17 pounds since last visit. Previously lostweight with adipex but now gaining back. Cutting back on smoking and eating more. Not active and noregular exercise. Tries to watch diet and eat [...] Items Addressed This Visit Essential hypertension, benign ([facility]/HCC) BP elevated today but previously controlled. Monitor PRN. COPD (chronic obstructive pulmonary disease) ([facility]) Breathing stable and encouraged to quit smoker. Continue inhalers. Class 3 severe obesity due to excess calories with serious comorbidity and body mass index (BMI) of45.0 to 49.9 in adult ([facility]) Patient overweight and difficult time losing weight. [...] low dose CT chest documented in this encounterSaint John's Breech [facility] Medical [id number] History of Present illness Narrative* Mane Lee MD - 08/04/2024 11:34 AM EDTAssociated Problem(s): Acute bronchitis due to other specified [...] 5-7 days and if no better or worsecall for re-evaluation. * Mane Lee MD - 08/04/2024 11:15 AM EDT Images from the original note were not [...] 5-7 days and if no better or worsecall for re-evaluation. Relevant Medications cefdinir (Omnicef) 300 MG capsule predniSONE (Deltasone) 50 MG tablet documented in this encounterSaint John's Breech Regional Medical [id number] History of Present illness Narrative* Mane Lee MD - 07/01/2024 10:54 AM EDTAssociated Problem(s): Morbid obesity due to excess calories [...] as prescribed. If develop new or worsening symptomscontact office. * Mane Lee MD - 07/01/2024 10:54 AM EDTAssociated Problem(s): Leg edema Edema worse and resume lasix. Elevate legs PRN. * Mane Lee MD - 07/01/2024 10:53 AM EDTAssociated Problem(s): Essential hypertension, benign (CMS/HCC) BP controlled and monitor PRN. * Mane Lee MD - 07/01/2024 10:53 AM EDTAssociated Problem(s): Degenerative lumbar spinal stenosis Pain improved after injection. Continue medication and home exercises. * Mane Lee MD - 07/01/2024 10:53 AM EDTAssociated Problem(s): COPD (chronic obstructive pulmonary disease) ([facility]) Symptoms stable and continue anoro. Use albuterol PRN. * Mane Lee MD - 07/01/2024 10:30 AM EDT Images from the original note were not [...] Increased fruits and vegetables. Tries to limit totaldaily calories. Increased activity and walking almost daily. [...] as prescribed. If develop new or worsening symptomscontact office. Relevant Medications phentermine (Adipex-P) 37.5 MG tablet documented in this encounterSaint John's Breech Regional Medical [id number] History of Present illness Narrative* Mane Lee MD - 12/23/2023 1:53 PM ESTAssociated Problem(s): COPD (chronic obstructive pulmonary disease) (CMS/HCC) Symptoms stable and use albuterol PRN. * Mane Lee MD - 12/23/2023 1:51 PM ESTAssociated Problem(s): Lumbar disc herniation with radiculopathy Pain unchanged and continued weakness in legs. Scheduled with pain pain management and will try injections. Extend off work until 03/08/24. * Mane Lee MD - 12/23/2023 1:50 PM ESTAssociated Problem(s): Leg edema Edema controlled with lasix and continue PRN. Elevated legs throughout the day. * Mane Lee MD - 12/23/2023 1:50 PM ESTAssociated Problem(s): Essential hypertension, benign (CMS/HCC) BP controlled and monitor PRN. * Mane Lee MD - 12/23/2023 1:50 PM ESTAssociated Problem(s): Degenerative lumbar spinal stenosis Pain unchanged and continued weakness in legs. Scheduled with pain pain management and will try injections. Extend off work until 03/08/24. * Mane Lee MD - 12/23/2023 1:15 PM EST Subjective Patient ID: Lawrence Harrison is a 58 y.o. female who presents for Follow-up (1 m). F/u HTN, back pain, COPD, edema, and weight. Patient unchanged today. Checking BP PRN and typicallycontrolled. BP okay today. Taking medication daily and tolerating without side effects. Back pain unchanged. Continues to have severe pain in low back and across top hips. Pain radiates into bilateral gluteal region and down legs. Pain increased with walking and standing. Severe pain with bending and lifting. Trying to perform home PT exercises. Remains off work. Severe weakness in legs. Not ableto complete ADLs due to symptoms and need to stop and take breaks in cooking or cleaning. Seen by surgeon and recommend try injections before consider surgical options. Scheduled with pain managementnext week. COPD stable. Mild SOB and cough [...] off work until 03/08/24. documented in this encounterNOOH HealthcareEvaluation noteNo assessment information availableDoctors Hospital Ctr Work Phone: Evaluation note* Diagnosis Essential hypertension, benign (CMS/HCC)- Primary Essential hypertension, benign Degenerative lumbar spinal stenosis Spinal stenosis of lumbar region Lumbar disc herniation with radiculopathy Displacement of lumbar intervertebral disc without myelopathy Leg edema Edema Chronic obstructive pulmonary disease, unspecified COPD type (CMS/HCC) documented in this encounter [facility] HealthcareEvaluation note* Diagnosis Essential hypertension, benign (CMS/HCC)- Primary Essential hypertension, benign Leg edema Edema Chronic obstructive pulmonary disease, unspecified COPD type (CMS/HCC) Degenerative lumbar spinal stenosis Spinal stenosis of lumbar region Morbid obesity due to excess calories (CMS/HCC) documented in this encounter [facility] HealthcareEvaluation note* Diagnosis Acute bronchitis due to other specified organisms- Primary Essential hypertension, benign (CMS/HCC) Essential hypertension, benign Spinal stenosis, lumbar region, without neurogenic claudication Vitamin D deficiency Degeneration of lumbar intervertebral disc Degeneration of lumbar or lumbosacral intervertebral disc Lower extremity edema Edema Moderate COPD (chronic obstructive pulmonary disease) (CMS/HCC) documented in this encounter [facility] HealthcareEvaluation note* Diagnosis Essential hypertension, benign [...] Tobacco use disorder documented in this encounter [facility] HealthcareEvaluation note* Diagnosis Essential hypertension, benign [...] 49.9 in adult documented in this encounter [facility] HealthcareEvaluation note* Diagnosis Essential hypertension, benign [...] 49.9 in adult documented in this encounter [facility] HealthcareEvaluation note* Diagnosis Essential hypertension, benign [...] 49.9 in adult documented in this encounter [facility] HealthcareEvaluation note* Diagnosis Essential hypertension, benign- Primary [...] Edema Morbid obesity due to excess calories (CMS-HCC) Body mass index [BMI] 45.0-49.9, adult (Z68.42) Essential hypertension, benign- Primary Essential hypertension, benign Chronic obstructive pulmonary disease, unspecified COPD type (HCC) Degenerative lumbar spinal stenosis Spinal stenosis of lumbar region Leg edema Edema Breast cancer screening by mammogram Morbid obesity due to excess calories (CMS-HCC) Body mass index [BMI] 45.0-49.9, adult (Z68.42) Essential hypertension, benign- Primary Essential hypertension, benign Chronic obstructive pulmonary disease, unspecified COPD type (HCC) Degenerative lumbar spinal stenosis Spinal stenosis of lumbar region Leg edema Edema Morbid obesity due to excess calories (CMS-HCC) Injury of ulnar collateral ligament of wrist, right, initial encounter Essential hypertension, benign- Primary Essential hypertension, benign Leg edema Edema Chronic obstructive pulmonary disease, unspecified COPD type (HCC) Degenerative lumbar spinal stenosis Spinal stenosis of lumbar region Morbid obesity due to excess calories (CMS-HCC) Annual physical exam- Primary Routine general medical examination at a health care facility Essential hypertension, benign Essential hypertension, benign Chronic obstructive pulmonary disease, unspecified COPD type (HCC) Class 3 severe obesity due to excess calories with serious comorbidity and body mass index (BMI) of 45.0 to 49.9 in adult (CMS-HCC) Cigarette smoker Tobacco use disorder Essential hypertension, benign- Primary Essential hypertension, benign Chronic obstructive pulmonary disease, unspecified COPD type (HCC) Leg edema Edema Class 3 severe obesity due to excess calories with serious comorbidity and body mass index (BMI) of 45.0 to 49.9 in adult ([facility]) Essential hypertension, benign- Primary Essential hypertension, benign Chronic obstructive pulmonary disease, unspecified COPD type (HCC) Leg edema Edema Class 3 severe obesity due to excess calories with serious comorbidity and body mass index (BMI) of 45.0 to 49.9 in adult ([facility]) Class 3 severe obesity due to excess calories with serious comorbidity and body mass index (BMI) of 45.0 to 49.9 in adult ([facility]) documented in this encounter [facility]* Diagnosis Onset Date Resolution Status Admit Date Benign essential HTN acute Jul 9:49am Class 3 severe obesity due t o excess calories with serious comorbidity and acute July 22, 2025 9:49am COPD (chronic obstructive pulmonary disease) acute July 9:49am Degenerative lumbar spinal stenosis acute July 22, 2025 9:49am Leg edema acute July 9:49am Primary osteoarthritis of le ft knee acute July 22, 2025 9:49am [facility] Work Phone: Reason for referral (narrative)No reason for referral information availableVeterans Health Administration Work Phone: Summary Purpose Family History No [...] 2025 9:49am F17.210 August 08, 2025 10:20am Reason for Visit Admit Date Benign essential HTN July 22 9:49am Class 3 severe obesity due t o excess calories with serious comorbidity and July 22, 2025 9:49am COPD (chronic obstructive pulmonary dise ase) July 22, 2025 9:49am Degenerative lumbar spinal stenosis Jul 9:49am Leg edema July 22, 2025 9:49am Primary osteoarthritis of left knee Jul 9:49am Chief Complaint M54.50 Chief Complaint Admit Date Established Patient July 22, 2025 9:49am Chief Complaint Admit Date Established Patient July [...] of left knee Octobe r 2024 10:57am Additional Source Comments INFORMATION SOURCE (unrecogn ized section and content) DATE CREATED AUTHOR 02/02/2023 [facility] DATE CREATED AUTHOR AUTHOR'S ORGANIZ ATION 03/27/2024 [facility] DATE CREATED AUTHOR AUTHOR'S ORGANIZ ATION 04/15/2025 [facility] EPIC DATE CREATED AUTHOR AUTHOR'S ORGANIZ ATION 08/14/2025 [facility] Care Teams (unrecognized sec tion and content) Team Status: Active Member Role Status Dates Mane Lee MD Primary Care Provider Active Team Status: Inactive Member Role Status Dates Mane Lee MD Primary Care Provider Active S tart: December 10, 2023 End: December 10, 2023 DAILY BlancC Attending Provider Active Start: December 10, 2023 End: December 10, 2023 Heating Technician Relationship Specialty Start Date End Date Mane Lee MD [address] [place] [address] PCP - General Family Medicine 12/23/23 Heating Technician Relationship Specialty Start Date End Date Mane Lee MD [address] [place] [address] PCP - General Family Medicine 12/23/23 Heating Technician Relationship Specialty Start Date End Date Mane Lee MD [address] [place] [address] PCP - General Family Medicine 12/23/23 Mane Lee MD [address] [place] [address] PCP - [place] [employer] 01/09/24 Heating Technician Relationship Specialty Start Date End Date Mane Lee MD [address] [place] [address] PCP - General Family Medicine 12/23/23 Mane Lee MD [address] [place] [address] PCP - [place] [employer] 01/09/24 Heating Technician Relationship Specialty Start Date End Date Mane Lee MD [address] [place] [address] PCP - General Family Medicine 12/23/23 Mane Lee MD [address] [place] [address] PCP - [place] [employer] 01/09/24 Heating Technician Relationship Specialty Start Date End Date Mane Lee MD [address] [place] [address] PCP - General Family Medicine 12/23/23 Mane Lee MD [address] [place] [address] PCP - [place] [employer] 01/09/24 Heating Technician Relationship Specialty Start Date End Date Mane Lee MD [address] [place] [address] PCP - General Family Medicine 12/23/23 Mane Lee MD [address] [place] [address] PCP - [place] [employer] 01/09/24 Heating Technician Relationship Specialty Start Date End Date Mane Lee MD [address] [place] [address] PCP [facility] 12/23/23 Mane Lee MD [address] [place] [address] PCP - [place] [employer] 01/09/24 Heating Technician Relationship Specialty Start Date End Date Mane Lee MD [address] [place] [address] PCP [facility] 12/23/23 Mane Lee MD [address] [place] [address] PCP - [place] [employer] 01/09/24 Heating Technician Relationship Specialty Start Date End Date Mane Lee MD [address] [place] [address] PCP - General Family Medicine 12/23/23 Mane Lee MD [address] [place] [address] PCP - [place] [employer] 01/09/24 Heating Technician Relationship Specialty Start Date End Date Mane Lee MD [address] [place] [address] PCP - General Family Medicine 12/23/23 Mane Lee MD [address] [place] [address] PCP - [place] [employer] 01/09/24 Heating Technician Relationship Specialty Start Date End Date Mane Lee MD [address] [place] [address] PCP - General Family Medicine 12/23/23 Mane Lee MD [address] [place] [address] PCP - [place] [employer] 01/09/24 Heating Technician Relationship Specialty Start Date End Date Mane Lee MD [address] [place] [address] PCP - General Family Medicine 12/23/23 Mane Lee MD [address] [place] [address] PCP - [place] [employer] 01/09/24 Team Status: Inactive Member Role Status Dates Mane Lee MD Primary Care Provider Active S tart: July 22, 2025 End: July 22, 2025 Mane Lee MD Attending Provider Active Star t: July 22, 2025 End: July 22, 2025 Team Status: Inactive Member Role Status Dates Mane Lee MD Primary Care Provider Active S tart: August 08, 2025 End: August 08, 2025 Mane Lee MD Attending Provider Active Star t: August 08, 2025 End: August 08, 2025 Team Status: Inactive Member Role Status Dates Mane Lee MD Primary Care Provider Active S tart: August 15, 2025 End: August 15, 2025 Mane Lee MD Attending Provider Active Star t: August 15, 2025 End: August 15, 2025 Goals (unrecognized section and content) Goals may be documented in a n alternate sectionGoals may be documented in an alternate sectionGoals may be documented in an alternate sectionGoals may be documented in an alternate sectionGoals may be documented in an [...] BE BASED ON THE PRIMARY CLINICAL RECORDS. [facility] [employer] provides no warranty or guarantee of the accuracy or completeness of information in this document.
--- NOTE | 2025-08-18 11:34 | PM.CN ---
Consult Note: HPI Data of Consult Patient: known to practice within the last 3 years Consult date: 08/18/25 Requesting Physician: Rachael oRbles NP Primary Care Provider: Mane Kearney MD Consult Narrative Reason for consult: f/u Narrative: Jazz Juares a pleasant 59 year old female presents for evaluation and management of chronic low back pain. Patient has failed conservative measures and greater than 6 weeks of PT. Previously pt was evaluated by Dr Whitman office who would like her to try injection therapy before consideration of surgical intervention. Patient finding benefit from zonegran 50mg HS, celebrex 200mg BID, flexeril 10mg TID, and duloxetine 60mg daily without side effects. Previous Bilateral L3-4, L4-5 facet RFA with >50% improvement in axial low back pain and functional ability greater than 6 months. Since last visit pt had an additional fall with injury to left knee, pending MRI of left knee and further workup with orthopedics. Pain today 4-5/10 increasing with twisting, standing, walking, pushing, pulling, lifting, housework, ADLs. cc:: CC: Rachael Robles NP Review of Systems ROS Status of ROS 10 or more systems reviewed and unremarkable except as noted in history and below Musculoskeletal Reports: back pain PFSH [facility] Medical History (Updated 01/19/25 @ 10:48 by Rachael Robles NP) Low back pain ?M54.50 - Low back pain, unspecified (ICD-10) Smoker ?F17.200 - Nicotine dependence, unspecified, uncomplicated (ICD-10) COPD (chronic obstructive pulmonary disease) ?J44.9 - Chronic obstructive pulmonary disease, unspecified (ICD-10) Hypertension ?I10 - Essential (primary) hypertension (ICD-10) Surgical History S/P carpal tunnel release ?Z98.890 - Other specified postprocedural states (ICD-10) S/P endometrial ablation ?Z98.890 - Other specified postprocedural states (ICD-10) Meds Home Medications and Allergies Home Medications ?Medication ?Instructions ?Recorded ?Confirmed ?Type amlodipine 5 mg tablet 5 mg PO DAILY 08/28/23 03/22/24 History celecoxib 200 mg capsule 200 mg PO Q12H PRN pain 08/28/23 03/22/24 History cholecalciferol (vitamin D3) 50 50 mcg PO DAILY 08/28/23 03/22/24 History mcg (2,000 unit) tablet losartan 100 1 tab PO DAILY 08/28/23 03/22/24 History mg-hydrochlorothiazide 25 mg tablet umeclidinium 62.5 mcg-vilanterol 1 inh inhalation Q24H 08/28/23 03/22/24 History 25 mcg/actuation powdr for inhalation (Anoro Ellipta) duloxetine 60 mg capsule,delayed 60 mg PO DAILY #30 caps 10/09/23 03/22/24 Rx release albuterol sulfate 90 mcg/actuation inhalation 12/25/23 History aerosol inhaler cyclobenzaprine 10 mg tablet 10 mg PO TID 01/14/24 03/22/24 History zonisamide 50 mg capsule 50 mg PO DAILY #30 caps 04/22/24 Rx Allergies Allergy/AdvReac Type Severity Reaction Status Date / Time ciprofloxacin (From Cipro) Allergy Verified 03/22/24 07:46 Exam Constitutional Documenting provider has reviewed patient's vital signs: yes Common normals: no apparent distress, oriented x3, healthy appearing, alert and well nourished General appearance: cooperative [facility] Common normals: normocephalic, hearing grossly normal bilaterally and moist oral mucous membranes Head and scalp: normocephalic Eye Common normals: PERRL Pupil: PERRL Neck & C-Spine Common normals: full ROM General: normal visual inspection Chest Common normals: inspection of chest normal Respiratory Common normals: normal respiratory effort, no retractions and no use of accessory muscles Back & Pelvis Thoracic spine/upper back: ROM limited, pain with ROM and thoracic spinal tenderness T-spine tenderness location: T10, T11 and T12 Lumbar spine/lower back: ROM limited, lumbar spinal tenderness Lumbar spinal tenderness location: L1, L2, L3, L4 and L5, paraspinal muscle tenderness, paraspinal muscle spasm and straight leg raise negative bilaterally Other: facet loading positive no radiculopathy on exam sensation intact BLE strength 5/5 in BLE Extremity Common normals: normal to inspection and full ROM Neuro Common normals: oriented x3, CN's II-XII intact bilaterally, moves all extremities, no focal motor deficits, no sensory deficits noted and deep tendon reflexes 2+ bilaterally Sensorium/orientation: alert Gait (neuro): antalgic Motor exam: strength 5/5 throughout and no movement abnormalities noted Psych Common normals: mental status grossly normal, thought process normal, cooperative, affect normal, speech normal and activity/motor behavior normal Speech: normal speech Thought process: normal thought process Results Additional Findings Additional findings: If on a controlled substance or opioids, I have checked an [place]AR[place] report on this patient and there are no aberrancies noted in the prescribing history.??If on a controlled substance or opioid a drug screen was completed and reviewed within the last year, and if there has not been a drug screen completed we ordered one today to monitor higher risk, state monitored pain medication use. As part of providing excellent, safe, comprehensive care, the following was completed at our patient's visit: 1. A medication reconciliation and review to ensure accurate knowledge of current/active medications, including asking our patients to inform us about any kiae-ejy-kerhxsk medications or herbal remedies/nutritional supplements/alternative remedies. 2. A review to specifically ensure our patients have had annual screening for screening for depression, screening for tobacco use, and screening for unhealthy alcohol use. For concerning screenings had a discussion with the patient, provided patient education, and recommended follow-up with primary care provider when appropriate. If patient noted with a risk of falling, they received education on strength, gait, and balance training to prevent future risk of falling. Portions of this note may have been carried over from the previous visit and updated as appropriate. Please note this office utilizes paper charting in addition to the electronic medical record. A list of current medications, vitals, and PMH is available there as the clinical staff outside of myself do not have access to [employer] charting during the clinic day operations. As part of providing quality comprehensive care the current medications, vitals, and PMH were reviewed in the paper chart. Assessment and Plan Assessment and Plan (1) Lumbar spondylosis: (2) Myofascial pain: Plan declining repeat bilateral L3-4 L4-5 facet RFA at this time due to cost continue current medications f/u 6 months, sooner if needed
== END 2025-08-18 11:12 | disposition home or self-care (01) ==
LOC: PM 11:11
PROVIDERS: PCP Family Medicine; Visit Provider Nurse Practitioner
DX: M47.816 Spondylosis without myelopathy or radiculopathy, lumbar region (principal); M79.18 Myalgia, other site
CPT/HCPCS: G0463

== ENCOUNTER 2025-08-23 12:54 | Outpatient (OUT) | payer BC, SELFPAY ==
--- OUTSIDE RECORDS SUMMARY | 2025-08-23 12:56 | XMS_ITS | Encounter Summary ---
Author Organization [facility] Address [address] [place] [address] Care Team Providers Care Senior Systems Developer Name Role Phone Mane Kearney MD Primary Care Provider [phone] Mane Kearney MD Unavailable Encounter Details Date Type Department Care Team (Late st Contact Info) Description 06/25/2024 Clinisync Result Encounter [facility] External Department Unsolicited Mane Kearney MD [address] [facility] [place] [address] Social History Tobacco Use Types Packs/Day Years [...] No 11/26/2023 Social Connection and Isolation Panel Answer Date Recorded In a typical week, how many times do you talk on the phone with family, friends, or neighbors? Once a week 11/26/2023 How often do you get together with friends or re latives? Once a week 11/26/2023 How often do you attend yarsanism or gnosticism serv ices? Never 11/26/2023 Do you belong to any clubs o r organizations such as yarsanism groups, unions, fraternal or athletic groups, or [...] care, and heating? Not very hard 11/26/2023 [facility] of Occupat ional Health - Occupational Stress [...] place to sleep or slept in a mcc (including now)? No 11/26/2023 Comments Unknown Sex [...] EDT Narrative 06/25/2024 12:41 [place] [address] Mammography Report Signed Patient: JAZZ JUARES MR#: [id number] : 1965 Acct:[id number] Age/Sex: 58 / F ADM Date: 06/24/24 Loc: MAMMO Attending Dr: Mane Kearney M.D. Ordering Physician: Mane Kearney M.D. Results: Date of Service: 06/24/24 Follow Up: Procedure(s): MM tomosynthesis screening BI Accession Number(s): [id number] cc: Mane Kearney M.D. Patient Name: JAZZ JUARES MR#: [id number] : 1965 Exam Date: 06/24/2024 Ordering Doctor: [...] rectal cancer at age 73. LOCATION: [facility] BREAST COMPOSITION: There are scattered areas [...] Signed By: 06/25/24 1241 DD/ 1240 TD/TT: Sexton Helper: Procedure Note Radiology, Radiologist, MD - 06/25/2024 [place] [address] Mammography Report Signed Patient: JAZZ JUARES DMR#: [id number] : 1965Acct:[id number] Age/Sex: 58 / FADM Date: 06/24/24 Loc: MAMMO Attending Dr: Mane Kearney M.D. Ordering Physician: Mane Kearney M.D.Results: Date of Service: 06/24/24Follow Up: Procedure(s): MM tomosynthesis screening BI Accession Number(s): [id number] cc: Mane Kearney M.D. Patient Name: JAZZ JUARES MR#: [id number] : 1965 Exam Date: 06/24/2024 Ordering Doctor: DR Mane Kearnye . RADIOLOGY REPORT PROCEDURE: MM TOMOSYNTHESIS SCREENING [...] with rectalcancer at age 73. LOCATION: [facility] BREAST COMPOSITION: There are scattered areas [...] M.D. Signed By:06/25/24 1241 DD/ 1240 TD/TT: Sexton Helper: Mane Kearney MD [facility] Final Result documented in this encounter Visit Diagnoses Not on filedocumented in this encounter Care Teams Senior Systems Developer Relationship Specialty Start Date End Date Mane Kearney MD PCP - General Family Medicine 12/23/23 Mane Kearney MD [address] [place] [address] PCP - [place] [employer] 01/09/24 documented as of this encounter
--- OUTSIDE RECORDS SUMMARY | 2025-08-23 12:56 | XMS_ITS | Encounter Summary ---
Author Organization [facility] Address [address] [place] [address] Care Team Providers Care Test Manager Name Role Phone Mane Kearney MD Primary Care Provider [phone] Mane Kearney MD Primary Care Provider [phone] Mane Kearney MD Unavailable Encounter Details Date Type Department Care Team (Late st Contact Info) Description 10/31/2023 Orders Only [facility] [address] [place] [address] Mane Kearney MD [address] [facility] [place] [address] Social History Tobacco Use Types Packs/Day Years [...] on filedocumented in this encounter Care Teams Test Manager Relationship Specialty Start Date End Date Mane Kearney MD PCP - General Family Medicine 05/09/23 12/22/23 Mane Kearney MD PCP - General Family Medicine 12/23/23 Mane Kearney MD [address] [place] [address] PCP - [place] [employer] 01/09/24 documented as of this encounter
--- OUTSIDE RECORDS SUMMARY | 2025-08-23 12:56 | XMS_ITS | Clinical Summary ---
Author Organization [facility] Address [address] [place] [address] Care Team Providers Care Collector Of Aquarium Specimens Name Role Phone Mane Kearney MD Primary Care Provider [phone] Mane Kearney MD Unavailable Allergies Active Allergy [...] mouth Daily 90 tablet 3 08/04/20 24 Active DULoxetine (Cymbalta) [address] capsuleIndications :Degeneration of lumbar intervertebral disc Take 1 capsule (60 mg) by mouth Daily 90 capsule 3 08/04/20 24 Active furosemide (Lasix) 40 MG tabletIndications: Lower extremity edema Take 1 tablet (40 mg) by mouth Daily 90 tablet 3 08/04/20 24 Active zonisamide (Zonegran) 50 MG capsuleIndications :Spinal [...] powderIndications: Moderate COPD (chronic obstructive pulmonary disease) ([facility]) INHALE 1 PUFF BY MOUTH ONCE DAILY 60 each 3 04/28/20 25 Active phentermine (Adipex-P) 37.5 MG tabletIndications: Class 3 severe obesity due to excess calories with serious comorbidity and body mass index (BMI) of 45.0 to 49.9 in adult ([facility]) Take 1 tablet (37.5 mg) by mouth in the morning. Take before meals. 30 tablet 05/27/20 25 Active celecoxib (CeleBREX) 200 MG capsuleIndications :Spinal stenosis, lumbar region, without neurogenic claudication Take 1 capsule (200 mg) by mouth in the morning and 1 capsule (200 mg) before bedtime. 180 capsule 3 08/04/20 24 025 cholecalciferol (Vitamin D-3) 50 MCG (1999 UT) tabletIndications: Vitamin D deficiency Take 1 tablet (50 mcg) by mouth Daily 90 tablet 3 08/04/20 24 025 potassium chloride CR (K-Tab) 20 MEQ ER tabletIndications: Lower extremity edema Take 1 tablet (20 mEq) by mouth Daily 90 tablet 3 08/04/20 24 025 Active Problems Problem Noted Date Diagnosed Date [...] Team Description 05/27/2025 Refill [facility] [address] [place] [address] Mane Kearney MD Class 3 severe obesity due to excess calories with serious comorbidity and body mass index (BMI) of 45.0 to 49.9 in adult ([facility]) from Last 3 Months Family History Medical [...] week 11/26/2023 How often do you attend voodoo or episcopal serv ices? Never 11/26/2023 Do you belong to any clubs o r organizations such as voodoo groups, unions, fraternal or athletic groups, or [...] care, and heating? Not very hard 11/26/2023 [facility] of Occupat ional Health - Occupational Stress [...] place to sleep or slept in a custodial (including now)? No 11/26/2023 Comments Unknown Sex [...] 06/25/2025 06/25/2024, 01/29/2023 Influenza Vaccine (#1) 2025 5, 08/21/2023, 08/23/2021, Additional history exists Colonoscopy 05/20/2032 [...] EDT Narrative 06/25/2024 12:41 PM EDT The [address] [address] Mammography Report Signed Patient: JAZZ JUARES MR#: [id number] : 1965 Acct:[id number] Age/Sex: 58 / F ADM Date: 06/24/24 Loc: MAMMO Attending Dr: Mane Kearney M.D. Ordering Physician: Mane Kearney M.D. Results: Date of Service: 06/24/24 Follow Up: Procedure(s): MM tomosynthesis screening BI Accession Number(s): [id number] cc: Mane Kearney M.D. Patient Name: JAZZ JUARES MR#: [id number] : 1965 Exam Date: 06/24/2024 Ordering Doctor: [...] rectal cancer at age 73. LOCATION: The [facility] BREAST COMPOSITION: There are scattered areas [...] Signed By: 06/25/24 1241 DD/ 1240 TD/TT: Hospital Admitting Clerk: Procedure Note Radiology, Radiologist, - 06/25/2024 [place] [address] Mammography Report Signed Patient: JAZZ JUARES DMR#: [id number] : 1965Acct:[id number] Age/Sex: 58 / FADM Date: 06/24/24 Loc: MAMMO Attending Dr: Mane Kearney M.D. Ordering Physician: Mane Kearney M.D.Results: Date of Service: 06/24/24Follow Up: Procedure(s): MM tomosynthesis screening BI Accession Number(s): [id number] cc: Mane Kearney M.D. Patient Name: JAZZ JUARES MR#: [id number] : 1965 Exam Date: 06/24/2024 Ordering Doctor: [...] with rectalcancer at age 73. LOCATION: [facility] BREAST COMPOSITION: There are scattered areas [...] M.D. Signed By:06/25/24 1241 DD/ 1240 TD/TT: Hospital Admitting Clerk: Mane Kearney MD [facility] Final Result from Last 3 Months or Most Recently Relevant to Health Maintenance Insurance [employer] Care Teams Collector Of Aquarium Specimens Relationship Specialty Start Date End Date Mane Kearney MD PCP - General Family Medicine 12/23/23 aMne Kearney MD [address] [place] [address] PCP - [facility] 01/09/24
--- OUTSIDE RECORDS SUMMARY | 2025-08-23 12:56 | XMS_ITS | Clinical Summary ---
Author Organization [facility] tem Address [id number] [address] [place] [address] Care Team Providers Care Director Internal Control Name Role Phone Mane Kearney MD Primary Care Provider [phone] Allergies Active Allergy Reactions Criticality Noted Date [...] to Health Maintenance Insurance ANTH Care Teams Director Internal Control Relationship Specialty Start Date End Date Mane Kearney MD PCP - General Family Medicine 05/16/22
--- OUTSIDE RECORDS SUMMARY | 2025-08-23 12:56 | XMS_ITS | Encounter Summary ---
Author Organization [facility] Address [address] [place] [address] Care Team Providers Care Ruby Engineer Name Role Phone Mane Kearney MD Primary Care Provider [phone] Mane Kearney MD Primary Care Provider [phone] Mane Kearney MD Unavailable Encounter Details Date Type Department Care Team (Late st Contact Info) Description 10/16/2023 Clinisync Result Encounter [facility] External Department Unsolicited Provider, Generic External Data Social History Tobacco Use Types Packs/Day Years Used Date Smoking Tobacco: Never Assessed Comments Unknown Sex and Gender Information Value Date Recorded Sex Assigned at Not on file Legal Sex Female 6:46 PM EDT Gender Identity Not on file Sexual Orientation Not on file documented as of this encounter Plan of Treatment Not on file documented as of this encounter Procedures Procedure Name Priority Date/Time Associated Diagnosis Comments MR LUMBAR SPINE WO CON 10/16/2023 2:57 PM EST documented in this encounter Results * MR LUMBAR SPINE WO CON (10/16/2023 2:57 PM EST) Anatomical Region Laterality Modality Other 10/16/2023 2:57 PM EST Narrative 10/16/2023 2:59 PM EST The [address] [address] Magnetic Resonance Report Signed Patient: JAZZ JUARES MR#: [id number] : 1965 Acct:[id number] Age/Sex: 57 / F ADM Date: 10/16/23 Loc: MRI Attending Dr: Ash Martínez PASTEURIZING MACHINE OPERATOR Ordering Physician: Ash Martínez NP Date of Service: 10/16/23 Procedure(s): MR lumbar spine wo con Accession Number(s): [id number] cc: Ash Martínez NP; Mane Kearney M.D. [place] [address] Patient Name: JAZZ JUARES MRN: [id number] date: 1965 Sex: F Assigned Patient Location: MRI Current Patient Location: MRI Accession/Order Number: [id number] Exam Date: 10/16/2023 13:40 Report Date: 10/16/2023 14:57 At the request of: ASH MARTÍNEZ Procedure: MR lumbar spine wo con EXAMINATION: MR lumbar spine wo con HISTORY: Lumbar Stenosis COMPARISON: 08/04/2023 TECHNIQUE: A variety of imaging planes and parameters were utilized for visualization of suspected pathology. FINDINGS: For the purposes of numbering, sagittal T2 image # 8 extends from the T11 vertebral body superiorly to the S4 level inferiorly. PARASPINAL AREA: Normal with no visible mass. BONES: Normal alignment with no acute fracture, spondylolisthesis or bone edema CORD/CAUDA EQUINA: Normal caliber, contour, and signal intensity. DISC LEVELS: 12-L1: No significant disc/facet abnormality, spinal stenosis, or foraminal stenosis. L1-L2: No significant disc/facet abnormality, spinal stenosis, or foraminal stenosis. L2-L3: Early degenerative disc disease is present without focal protrusion or neural impingement. L3-L4: Early degenerative disc disease is present without focal protrusion or neural impingement. L4-L5: Disc desiccation. Posterior broad-based disc protrusion extending up to 2 mm. Mild trefoil narrowing of the central canal. No foraminal stenosis L5-S1: No significant disc/facet abnormality, spinal stenosis, or foraminal stenosis. MR/MR lumbar spine wo con IMPRESSION: Degenerative changes most significant at L4-L5 where mild posterior central disc protrusion results in mild trefoil narrowing of the central canal Electronically authenticated by: NIA RODRIGUEZ Date: 10/16/2023 14:57 Dictated By: Nia Rodriguez M.D. Signed By: 10/16/23 1459 DD/ 9224 TD/TT: Nozzle Cement Sprayer Helper: Procedure Note Radiology, Radiologist, - 10/16/[address] [address] Magnetic Resonance Report Signed Patient: JAZZ JUARES DMR#: [id number] : 1965Acct:[id number] Age/Sex: 57 / FADM Date: 10/16/23 Loc: MRI Attending Dr: Ash Martínez NP Ordering Physician: Ash Martínez NP Date of Service: 10/16/23 Procedure(s): MR lumbar spine wo con Accession Number(s): [id number] cc: Ash Martínez NP; Mane Kearney M.D. The [address] [address] Patient Name: JAZZ JUARES MRN: [id number] date: 1965 Sex: F Assigned Patient Location: MRI Current Patient Location: MRI Accession/Order Number: [id number] Exam Date: 10/16/2023 13:40 Report Date: 10/16/2023 14:57 At the request of: ASH MARTÍNEZ Procedure: MR lumbar spine wo con EXAMINATION: MR lumbar spine wo con HISTORY: Lumbar Stenosis COMPARISON: 08/04/2023 TECHNIQUE: A variety of imaging planes and parameters were utilized for visualization of suspected pathology. FINDINGS: For the purposes of numbering, sagittal T2 image # 8 extends from the T11 vertebral body superiorly to the S4 level inferiorly. PARASPINAL AREA: Normal with no visible mass. BONES: Normal alignment with no acute fracture, spondylolisthesis or bone edema CORD/CAUDA EQUINA: Normal caliber, contour, and signal intensity. DISC LEVELS: 12-L1: No significant disc/facet abnormality, spinal stenosis, orforaminal stenosis. L1-L2: No significant disc/facet abnormality, spinal stenosis, orforaminal stenosis. L2-L3: Early degenerative disc disease is present without focal protrusionor neural impingement. L3-L4: Early degenerative disc disease is present without focal protrusionor neural impingement. L4-L5: Disc desiccation. Posterior broad-based disc protrusion extendingup to 2 mm. Mild trefoil narrowing of the central canal. No foraminal stenosis L5-S1: No significant disc/facet abnormality, spinal stenosis, orforaminal stenosis. MR/MR lumbar spine wo con IMPRESSION: Degenerative changes most significant at L4-L5 where mild posteriorcentral disc protrusion results in mild trefoil narrowing of the central canal Electronically authenticated by: NIA RODRIGUEZ Date: 10/16/2023 14:57 Dictated By: Nia Rodriguez M.D. Signed By:10/16/23 1459 DD/ 1457 TD/TT: Nozzle Cement Sprayer Helper: us Generic External Data Provider [facility] Final Result documented in this encounter Visit Diagnoses Not on filedocumented in this encounter Care Teams Ruby Engineer Relationship Specialty Start Date End Date Mane Kearney MD PCP - General Family Medicine 05/09/23 12/22/23 Mane Kearney MD PCP - General Family Medicine 12/23/23 Mane Kearney MD [address] [place] [address] PCP - [facility] 01/09/24 documented as of this encounter
--- NOTE | 2025-08-23 12:57 | MR_ITS ---
[place] [address] Patient Name: LAWRENCE HARRISON MRN: [id number] date: 1965 Sex: F Assigned Patient Location: MRI Current Patient Location: MRI Accession/Order Number: [id number] Exam Date: 08/23/2025 13:05 Report Date: 08/23/2025 15:04 At the request of: JOLANTA LEE MD Procedure: MR knee LT wo con EXAMINATION: MRI OF THE LEFT KNEE CLINICAL DATA: Left knee pain after fall. 2 months ago COMPARISON: Left knee 08/02/2025 TECHNIQUE: Multiecho, multiplanar imaging was performed with use of an extremity coil. No contrast was administered. FINDINGS: Joint:Small joint effusion. Small Altamirano's cyst. There appears to BE bone marrow edema along the lateral condyle of the femur with thinning of the articular cartilage within this region. There appears to be chondromalacia involving the patella. Soft tissues: Diffuse soft tissue swelling. Quadriceps/Patellar tendon/retinaculum: Normal Muscles: Normal ACL:Normal PCL:Normal Medial Meniscus:Normal Lateral Meniscus:Tear anterior horn. 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 IN ADDITION, APPEARS TO BE A SMALL JOINT EFFUSION WITH ALTAMIRANO'S CYST. DIFFUSE SOFT TISSUE SWELLING. NO FLUID COLLECTION TO SUGGEST ABSCESS. Impression dictated by: Owen Smith Jr., D.O. 08/23/2025 3:04 PM Dictation Location: [place] [address] Electronically authenticated by: [id number] Y Date: 08/23/2025 15:04
--- OUTSIDE RECORDS SUMMARY | 2025-08-23 12:59 | XMS_ITS | CCD ---
Author Organization [facility] Care Team Providers Care Pourer Name Role Phone JESUS, DR MANE Avina [...] JESUS, DR MANE Avina Primary Care Unavailable PILOT [place]OUNT[place], DR NIA Uriosteg[employer] Consulting Unavailable JESUS, DR MANE Avina Consulting Unavailable MD Mane Lee Primary Care Provider BERNICE Shipman Attending Provider Mane Lee MD Primary Care Provider Melva BACK, Corine Puentes Attending Unavailable Melva BACK, Andsidra Puentes Attending Unavailable Melva BACK, Andrius Puentes Attending Unavailable Melva BACK, Corine Puentes [...] (1 source) Ciprofloxacin Drug Allergy 10-19-2014 [facility] (20 sources) Ciprofloxacin Drug Allergy 10-31-2023 [facility] (1 source) Ciprofloxacin Drug Allergy 07-22-2025 [facility] Repository Medications Current Medications Medication Drug [...] August 15, 2025 Complies with drug therapy [id number] actuat albuterol 0.09 mg/actuat metered dose [...] (BMI) of 45.0 to 49.9 in adult ([facility]) Take 1 tablet (37.5 mg) by mouth in the morning. Take before meals. 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] Onset: 11-20-2022 Episodic Other aftercare (1 source) meterman (current) use of opiate analgesic; 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: [FDC CURRNT USE OPIATE ANALGES] Onset: 11-20-2022 Episodic [...] (BMI) of 45.0 to 49.9 in adult ([facility])] Onset: 10-31-2023 01-10-2025 Chronic Other screening for [...] of malignant neoplasm of digestive organs; 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: [[facility] NEOPLASM DIGESTIV ORGN] Onset: 02-01-2023 Episodic [...] CT lung screeningon 08-08-20 CT lung screening [facility] [place] [address] [place] [address] CT Scan Report Signed Patient: Lawrence Harrison MR#: [id number] 8 : 1965 Acct:[id number] Age/Sex: 59 / F ADM Date: 08/08/25 Loc: CT Room: Type[facility] Attending Dr: Mane Lee MD Copies to: [...] Jr., D.O. 08/08/2025 12:43 PM Dictation Location: [place] [address] Transcribed By: [facility] 08/08/25 1243 Dictated By: Owen Smith Jr, DO 08/08/25 1242 Signed By: 08/08/25 1243 Normal [facility] ALL CBC WITH AUTO DIFFon [...] [Mass/Vol] 13.3 g/dL 12.0 - 16.0 g/[facility] IMMATURE GRANULOCY[facility] ABS AUTO 0.02 [facility] Immature granulocytes/100 WBC (Bld) 0.2 % 0.0 - 0.5 % [facility] LYMPHOCYTES ABSOLUTE AUTO 1.9 [facility] Lymphocytes/100 WBC (Bld) 22.4 % 20.5 - 60.0 % [facility] MCH (RBC) [Entitic mass] 29.6 pg 26.7 - 34.0 pg [facility] MCHC (RBC) [Mass/Vol] 32.8 g/dL 29.9 - 35.2 g/dL [facility] MCV (RBC) [Entitic vol] 90 fL 81.0 [...] Hemoglobin (Bld) [Mass/Vol] 14.6 g/dL Normal 12.0-16.0 [facility] Comment on above: Performed By: #### H GB #### [facility] [address] [address] [address] Evangelist Chicas MG MAMM SCREEN 3D MANJIT CADon 01-29-2023 MG MAMM SCREEN 3D MANJIT CAD Patient: LAWRENCE HARRISON Exam Date: 01/29/2023 : 1965 Gender:F Ordering : DR MANE LEE . Admission #: [id number] Family : Order #: [id number] CLICK HERE TO VIEW EXAM RADIOLOGY REPORT [...] rectal cancer at age 73. LOCATION: [facility] BREAST COMPOSITION: Scattered areas fibroglandular density. FINDINGS: [...] MD on 01/29/2023 at 09:29 Normal [facility] CBC AUTO DIFFon 11-14-2022 BASO # 0.0 103/ul Normal 0.0-0.1 [facility] Comment on above: Performed By: #### B MP #### [facility] [address] [address] [address] Evangelist Chicas Basophils/100 WBC (Bld) 0.1 % Critically low 0.2-2.0 [facility] Comment on above: Performed By: #### B MP #### [facility] [address] [place] [address] Dr. Evangelist Chicas EO # 0.0 103/ul Normal 0.0-0.7 [facility] Comment on above: Performed By: #### B MP #### [facility] [address] [place] [address] Dr. Evangelist Chicas Eosinophils/100 WBC (Bld) 0.1 % Critically low 0.9-7.0 [facility] Comment on above: Performed By: #### B MP #### [facility] [address] [place] [address] Dr. Evangelist Chicas Erythrocyte distribution width (RBC) [Ratio] 13.1 % Normal 11.0-15.0 [facility] Comment on above: Performed By: #### B MP #### [facility] [address] [place] [address] Dr. Evangelist Chicas Hematocrit (Bld) [Volume fraction] 41.4 % Normal 36.0-48.0 [facility] Comment on above: Performed By: #### B MP #### [facility] [address] [place] [address] Dr. Evangelist Chicas Hemoglobin (Bld) [Mass/Vol] 13.0 g/dL Normal 12.0-16.0 [facility] Comment on above: Performed By: #### B MP #### [facility] [address] [place] [address] Dr. Evangelist Chicas IG # 0.03 10e3/ul Normal 0.00-0.03 [facility] Comment on above: Performed By: #### B MP #### [facility] [address] [place] [address] Dr. Evangelist Chicas IG % 0.4 % Normal 0.0-0.5 [facility] Comment on above: Performed By: #### B MP #### [facility] [address] [place] [address] Dr. Evangelist Chicas LYMPH # 0.4 103/ul Critically low 1.2-3.8 [facility] Comment on above: Performed By: #### B MP #### [facility] [address] [address] [address] Evangelist Chicas Lymphocytes/100 WBC (Bld) 4.7 % Critically low 20.5-60.0 [facility] Comment on above: Performed By: #### B MP #### [facility] [address] [place] [address] Dr. Evangelist Chicas MANUAL DIFF REQ NO Normal [facility] Comment on above: Performed By: #### B MP #### [facility] [address] [address] [address] Evangelist Chicas MCH (RBC) [Entitic mass] 29.1 pg Normal 26.7-34.0 [facility] Comment on above: Performed By: #### B MP #### [facility] [address] [place] [address] Dr. Evangelist Chicas MCHC (RBC) [Mass/Vol] 31.4 g/dL Normal 29.9-35.2 [facility] Comment on above: Performed By: #### B MP #### [facility] [address] [place] [address] Dr. Evangelist Chicas MCV (RBC) [Entitic vol] 92.8 fL Normal 81.0-99.0 [facility] Comment on above: Performed By: #### B MP #### [facility] [address] [place] [address] Dr. Evangelist Chicas MONO # 0.1 103/ul Critically low 0.3-0.8 [facility] Comment on above: Performed By: #### B MP #### [facility] [address] [place] [address] Dr. Evangelist Chicas Monocytes/100 WBC (Bld) 1.8 % Normal 1.7-12.0 [facility] Comment on above: Performed By: #### B MP #### [facility] [address] [place] [address] Dr. Evangelist Chicas NEUT # 6.8 103/ul Critically high 1.4-6.5 [facility] Comment on above: Performed By: #### B MP #### [facility] [address] [address] [address] Evangelist Chicas Neutrophils/100 WBC (Bld) 92.9 % Critically high 43.0-75.0 [facility] Comment on above: Performed By: #### B MP #### [facility] [address] [place] [address] Dr. Evangelist Chicas Platelet mean volume (Bld) [Entitic vol] 11.3 fL Normal 9.5-13.5 [facility] Comment on above: Performed By: #### B MP #### [facility] [address] [place] [address] Dr. Evangelist Chicas PLT 109 103/ul Critically low 150-450 [facility] Comment on above: Performed By: #### B MP #### [facility] [address] [place] [address] Dr. Evangelist Chicas RBC 4.46 106/ul Normal 4.20-5.40 [facility] Comment on above: Performed By: #### B MP #### [facility] [address] [place] [address] Dr. Evangelist Chicas WBC 7.4 103/ul Normal 4.0-11.0 [facility] Comment on above: Performed By: #### B MP #### [facility] [address] [place] [address] Dr. Evangelist Chicas PROF CHEM 8 (BAS METB)on Anion gap [Moles/Vol] 11.8 mmol/L Normal [facility] Comment on above: Performed By: #### B MP #### [facility] [address] [place] [address] Dr. Evangelist Chicas Calcium [Mass/Vol] 9.3 mg/dL Normal 8.5-10.1 [facility] Comment on above: Performed By: #### B MP #### [facility] [address] [place] [address] Dr. Evangelist Chicas Chloride [Moles/Vol] 99 mmol/L Normal 98-107 [facility] Comment on above: Performed By: #### B MP #### [facility] [address] [place] [address] Dr. Evangelist Chicas CO2 [Moles/Vol] 31.6 mmol/L Normal 21.0-32.0 [facility] Comment on above: Performed By: #### B MP #### [facility] [address] [address] [address] Evangelist Chicas Creatinine [Mass/Vol] 0.75 mg/dL Normal 0.55-1.02 [facility] Comment on above: Performed By: #### B MP #### [facility] [address] [address] [address] Evangelist Chicas EGFR-AF CITIZEN [place] >60 Normal >=60 [facility] Comment on above: Performed By: #### B MP #### [facility] [address] [address] [address] Evangelist Chicas EGFR-NON AF CITIZEN [place] >60 Normal >=60 [facility] Comment on above: Performed By: #### B MP #### [facility] [address] [address] [address] Evangelist Chicas Glucose [Mass/Vol] 162 mg/dL Critically high 74-106 [facility] Comment on above: Performed By: #### B MP #### [facility] [address] [address] [address] Evangelist Chicas Potassium [Moles/Vol] 4.4 mmol/L Normal 3.5-5.1 [facility] Comment on above: Performed By: #### B MP #### [facility] [address] [address] [address] Evangelist Chicas Sodium [Moles/Vol] 138 mmol/L Normal 136-145 [facility] Comment on above: Performed By: #### B MP #### [facility] [address] [address] [address] Evangelist Chicas Urea nitrogen [Mass/Vol] 32.0 mg/dL Critically high 7.0-18.0 [facility] Comment on above: Performed By: #### B MP #### [facility] [address] [address] [address] Evangelist Chicas Urea nitrogen/Creatinin e [Mass ratio] 42.7 mg/mg Normal [facility] Comment on above: Performed By: #### B MP #### [facility] [address] [place] [address] Dr. Evangelist Chicas CBC AUTO DIFFon 11-13-2022 BASO # 0.0 103/ul Normal 0.0-0.1 [facility] Comment on above: Performed By: #### C BC #### [facility] [address] [place] [address] Dr. Evangelist Chicas Basophils/100 WBC (Bld) 0.1 % Critically low 0.2-2.0 [facility] Comment on above: Performed By: #### C BC #### [facility] [address] [place] [address] Dr. Evangelist Chicas EO # 0.0 103/ul Normal 0.0-0.7 [facility] Comment on above: Performed By: #### C BC #### [facility] [address] [place] [address] Dr. Evangelist Chicas Eosinophils/100 WBC (Bld) 0.0 % Critically low 0.9-7.0 [facility] Comment on above: Performed By: #### C BC #### [facility] [address] [place] [address] Dr. Evangelist Chicas Erythrocyte distribution width (RBC) [Ratio] 12.9 % Normal 11.0-15.0 [facility] Comment on above: Performed By: #### C BC #### [facility] [address] [place] [address] Dr. Evangelist Chicas Hematocrit (Bld) [Volume fraction] 39.0 % Normal 36.0-48.0 [facility] Comment on above: Performed By: #### C BC #### [facility] [address] [place] [address] Dr. Evangelist Chicas Hemoglobin (Bld) [Mass/Vol] 12.3 g/dL Normal 12.0-16.0 [facility] Comment on above: Performed By: #### C BC #### [facility] [address] [place] [address] Dr. Evangelist Chicas IG # 0.04 10e3/ul Critically high 0.00-0.03 [facility] Comment on above: Performed By: #### C BC #### [facility] [address] [place] [address] Dr. Evangelist Chicas IG % 0.4 % Normal 0.0-0.5 [facility] Comment on above: Performed By: #### C BC #### [facility] [address] [place] [address] Dr. Evangelist Chicas LYMPH # 0.5 103/ul Critically low 1.2-3.8 [facility] Comment on above: Performed By: #### C BC #### [facility] [address] [place] [address] Dr. Evangelist Chicas Lymphocytes/100 WBC (Bld) 4.5 % Critically low 20.5-60.0 [facility] Comment on above: Performed By: #### C BC #### [facility] [address] [place] [address] Dr. Evangelist Chicas MANUAL DIFF REQ NO Normal [facility] Comment on above: Performed By: #### C BC #### [facility] [address] [place] [address] Dr. Evangelist Chicas MCH (RBC) [Entitic mass] 29.7 pg Normal 26.7-34.0 [facility] Comment on above: Performed By: #### C BC #### [facility] [address] [place] [address] Dr. Evangelist Chicas MCHC (RBC) [Mass/Vol] 31.5 g/dL Normal 29.9-35.2 [facility] Comment on above: Performed By: #### C BC #### [facility] [address] [place] [address] Dr. Evangelist Chicas MCV (RBC) [Entitic vol] 94.2 fL Normal 81.0-99.0 [facility] Comment on above: Performed By: #### C BC #### [facility] [address] [place] [address] Dr. Evangelist Chicas MONO # 0.2 103/ul Critically low 0.3-0.8 [facility] Comment on above: Performed By: #### C BC #### [facility] [address] [place] [address] Dr. Evangelist Chicas Monocytes/100 WBC (Bld) 1.5 % Critically low 1.7-12.0 [facility] Comment on above: Performed By: #### C BC #### [facility] [address] [place] [address] Dr. Evangelist Chicas NEUT # 10.5 103/ul Critically high 1.4-6.5 [facility] Comment on above: Performed By: #### C BC #### [facility] [address] [place] [address] Dr. Evangelist Chicas Neutrophils/100 WBC (Bld) 93.5 % Critically high 43.0-75.0 [facility] Comment on above: Performed By: #### C BC #### [facility] [address] [place] [address] Dr. Evangelist Chicas Platelet mean volume (Bld) [Entitic vol] 10.4 fL Normal 9.5-13.5 [facility] Comment on above: Performed By: #### C BC #### [facility] [address] [place] [address] Dr. Evangelist Chicas PLT 169 103/ul Normal 150-450 [facility] Comment on above: Performed By: #### C BC #### [facility] [address] [place] [address] Dr. Evangelist Chicas RBC 4.14 106/ul Critically low 4.20-5.40 [facility] Comment on above: Performed By: #### C BC #### [facility] [address] [place] [address] Dr. Evangelist Chicas WBC 11.2 103/ul Critically high 4.0-11.0 [facility] Comment on above: Performed By: #### C BC #### [facility] [address] [place] [address] Dr. Evangelist Chicas CULTURE SPUTUMon 11-13-2022 CULTURE SPUTUM Culture Observations : NORMAL RESPIRATORY SHAINA. Normal [facility] Comment on above: Performed By: #### B MP #### [facility] [address] [place] [address] Dr. Evangelist Chicas PROF CHEM 8 (BAS METB)on Anion gap [Moles/Vol] 9.2 mmol/L Normal [facility] Comment on above: Performed By: #### D DIM #### [facility] [address] [place] [address] Dr. Evangelist Chicas Calcium [Mass/Vol] 9.1 mg/dL Normal 8.5-10.1 [facility] Comment on above: Performed By: #### D DIM #### [facility] [address] [place] [address] Dr. Evangelist Chicas Chloride [Moles/Vol] 100 mmol/L Normal 98-107 [facility] Comment on above: Performed By: #### D DIM #### [facility] [address] [place] [address] Dr. Evangelist Chicas CO2 [Moles/Vol] 33.8 mmol/L Critically high 21.0-32.0 [facility] Comment on above: Performed By: #### D DIM #### [facility] [address] [place] [address] Dr. Evangelist Chicas Creatinine [Mass/Vol] 0.85 mg/dL Normal 0.55-1.02 [facility] Comment on above: Performed By: #### D DIM #### [facility] [address] [place] [address] Dr. Evangelist Chicas EGFR-AF CITIZEN [place] >60 Normal >=60 [facility] Comment on above: Performed By: #### D DIM #### [facility] [address] [place] [address] Dr. Evangelist Chicas EGFR-NON AF CITIZEN OF [place] >60 Normal >=60 [facility] Comment on above: Performed By: #### D DIM #### [facility] [address] [place] [address] Dr. Evangelist Chicas Glucose [Mass/Vol] 151 mg/dL Critically high 74-106 [facility] Comment on above: Performed By: #### D DIM #### [facility] [address] [address] [address] Evangelist Chicas Potassium [Moles/Vol] 4.0 mmol/L Normal 3.5-5.1 [facility] Comment on above: Performed By: #### D DIM #### [facility] [address] [place] [address] Dr. Evangelist Chicas Sodium [Moles/Vol] 139 mmol/L Normal 136-145 [facility] Comment on above: Performed By: #### D DIM #### [facility] [address] [place] [address] Dr. Evangelist Chicas Urea nitrogen [Mass/Vol] 29.0 mg/dL Critically high 7.0-18.0 [facility] Comment on above: Performed By: #### D DIM #### [facility] [address] [place] [address] Dr. Evangelist Chicas Urea nitrogen/Creatinin e [Mass ratio] 34.1 mg/mg Normal [facility] Comment on above: Performed By: #### D DIM #### [facility] [address] [place] [address] Dr. Evangelist Chicas CBC AUTO DIFFon 11-12-2022 BASO # 0.0 103/ul Normal 0.0-0.1 [facility] Comment on above: Performed By: #### C BC #### [facility] [address] [place] [address] Dr. Evangelist Chicas Basophils/100 WBC (Bld) 0.1 % Critically low 0.2-2.0 [facility] Comment on above: Performed By: #### C BC #### [facility] [address] [place] [address] Dr. Evangelist Chicas EO # 0.0 103/ul Normal 0.0-0.7 [facility] Comment on above: Performed By: #### C BC #### [facility] [address] [place] [address] Dr. Evangelist Chicas Eosinophils/100 WBC (Bld) 0.0 % Critically low 0.9-7.0 [facility] Comment on above: Performed By: #### C BC #### [facility] [address] [address] [address] Evangelist Chicas Erythrocyte distribution width (RBC) [Ratio] 12.8 % Normal 11.0-15.0 [facility] Comment on above: Performed By: #### C BC #### [facility] [address] [address] [address] Evangelist Chicas Hematocrit (Bld) [Volume fraction] 41.5 % Normal 36.0-48.0 [facility] Comment on above: Performed By: #### C BC #### [facility] [address] [place] [address] Dr. Evangelist Chicas Hemoglobin (Bld) [Mass/Vol] 13.0 g/dL Normal 12.0-16.0 [facility] Comment on above: Performed By: #### C BC #### [facility] [address] [place] [address] Dr. Evangelist Chicas IG # 0.04 10e3/ul Critically high 0.00-0.03 [facility] Comment on above: Performed By: #### C BC #### [facility] [address] [address] [address] Evangelist Chicas IG % 0.3 % Normal 0.0-0.5 [facility] Comment on above: Performed By: #### C BC #### [facility] [address] [place] [address] Dr. Evangelist Chicas LYMPH # 0.5 103/ul Critically low 1.2-3.8 [facility] Comment on above: Performed By: #### C BC #### [facility] [address] [place] [address] Dr. Evangelist Chicas Lymphocytes/100 WBC (Bld) 3.7 % Critically low 20.5-60.0 [facility] Comment on above: Performed By: #### C BC #### [facility] [address] [place] [address] Dr. Evangelist Chicas MANUAL DIFF REQ NO Normal [facility] Comment on above: Performed By: #### C BC #### [facility] [address] [address] [address] Evangelist Chicas MCH (RBC) [Entitic mass] 29.5 pg Normal 26.7-34.0 [facility] Comment on above: Performed By: #### C BC #### [facility] [address] [place] [address] Dr. Evangelist Chicas MCHC (RBC) [Mass/Vol] 31.3 g/dL Normal 29.9-35.2 [facility] Comment on above: Performed By: #### C BC #### [facility] [address] [place] [address] Dr. Evangelist Chicas MCV (RBC) [Entitic vol] 94.3 fL Normal 81.0-99.0 [facility] Comment on above: Performed By: #### C BC #### [facility] [address] [place] [address] Dr. Evangelist Chicas MONO # 0.2 103/ul Critically low 0.3-0.8 [facility] Comment on above: Performed By: #### C BC #### [facility] [address] [place] [address] Dr. Evangelist Chicas Monocytes/100 WBC (Bld) 1.3 % Critically low 1.7-12.0 [facility] Comment on above: Performed By: #### C BC #### [facility] [address] [place] [address] Dr. Evangelist Chicas NEUT # 12.4 103/ul Critically high 1.4-6.5 [facility] Comment on above: Performed By: #### C BC #### [facility] [address] [place] [address] Dr. Evangelist Chicas Neutrophils/100 WBC (Bld) 94.6 % Critically high 43.0-75.0 [facility] Comment on above: Performed By: #### C BC #### [facility] [address] [place] [address] Dr. Evangelist Chicas Platelet mean volume (Bld) [Entitic vol] 9.9 fL Normal 9.5-13.5 [facility] Comment on above: Performed By: #### C BC #### [facility] [address] [place], [place] [address] Dr. Evangelist Chicas PLT 189 103/ul Normal 150-450 [facility] Comment on above: Performed By: #### C BC #### [facility] [address] [address] [address] Evangelist Chicas RBC 4.40 106/ul Normal 4.20-5.40 [facility] Comment on above: Performed By: #### C BC #### [facility] [address], [place] [address] Dr. Evangelist Chicas WBC 13.1 103/ul Critically high 4.0-11.0 [facility] Comment on above: Performed By: #### C BC #### [facility] [address] [address] [address] Evangelist Chicas ECHOCARDIO M/2D COMPLETEon 0 11-12-2022 ECHOCARDIO M/2D COMPLETE Patient: LAWRENCE HARRISON Exam Date: 11/12/2022 : 1965 Gender:F Ordering : DR MANE LEE . Admission #: [id number] Family : DR VAMSHI MORGAN . Order #: [id number] CLICK HERE TO VIEW EXAM ECHOCARDIOGRAM REPORT [...] Goncalves M.D. on 11/12/2022 at 13:56 Normal [facility] PROF CHEM 8 (BAS METB)on Anion gap [Moles/Vol] 10.2 mmol/L Normal [facility] Comment on above: Performed By: #### B MP #### [facility] [address] [place] [address] Dr. Evangelist Chicas Calcium [Mass/Vol] 9.2 mg/dL Normal 8.5-10.1 [facility] Comment on above: Performed By: #### B MP #### [facility] [address] [place] [address] Dr. Evangelist Chicas Chloride [Moles/Vol] 99 mmol/L Normal 98-107 [facility] Comment on above: Performed By: #### B MP #### [facility] [address] [place] [address] Dr. Evangelist Chicas CO2 [Moles/Vol] 31.5 mmol/L Normal 21.0-32.0 [facility] Comment on above: Performed By: #### B MP #### [facility] [address] [address] [address] Evangelist Chicas Creatinine [Mass/Vol] 0.87 mg/dL Normal 0.55-1.02 [facility] Comment on above: Performed By: #### B MP #### [facility] [address] [place] [address] Dr. Evangelist Chicas EGFR-AF CITIZEN [place] >60 Normal >=60 [facility] Comment on above: Performed By: #### B MP #### [facility] [address] [place] [address] Dr. Evangelist Chicas EGFR-NON AF CITIZEN OF [place] >60 Normal >=60 [facility] Comment on above: Performed By: #### B MP #### [facility] [address] [address] [address] Evangelist Chicas Glucose [Mass/Vol] 168 mg/dL Critically high 74-106 [facility] Comment on above: Performed By: #### B MP #### [facility] [address] [address] [address] Evangelist Chicas Potassium [Moles/Vol] 3.7 mmol/L Normal 3.5-5.1 [facility] Comment on above: Performed By: #### B MP #### [facility] [address] [address] [address] Evangelist Chicas Sodium [Moles/Vol] 137 mmol/L Normal 136-145 [facility] Comment on above: Performed By: #### B MP #### [facility] [address] [address] [address] Evangelist Chicas Urea nitrogen [Mass/Vol] 28.0 mg/dL Critically high 7.0-18.0 [facility] Comment on above: Performed By: #### B MP #### [facility] [address] [address] [address] Evangelist Chicas Urea nitrogen/Creatinin e [Mass ratio] 32.2 mg/mg Normal [facility] Comment on above: Performed By: #### B MP #### [facility] [address] [address] [address] Evangelist Chicas CBC AUTO DIFFon 11-11-2022 BASO # 0.0 103/ul Normal 0.0-0.1 [facility] Comment on above: Performed By: #### C BC #### [facility] [address] [address] [address] Evangelist Chicas Basophils/100 WBC (Bld) 0.2 % Normal 0.2-2.0 [facility] Comment on above: Performed By: #### C BC #### [facility] [address] [address] [address] Evangelist Chicas EO # 0.0 103/ul Normal 0.0-0.7 [facility] Comment on above: Performed By: #### C BC #### [facility] [address] [place] [address] Dr. Evangelist Chicas Eosinophils/100 WBC (Bld) 0.0 % Critically low 0.9-7.0 [facility] Comment on above: Performed By: #### C BC #### [facility] [address] [place] [address] Dr. Evangelist Chicas Erythrocyte distribution width (RBC) [Ratio] 12.7 % Normal 11.0-15.0 [facility] Comment on above: Performed By: #### C BC #### [facility] [address] [place] [address] Dr. Evangelist Chicas Hematocrit (Bld) [Volume fraction] 41.7 % Normal 36.0-48.0 [facility] Comment on above: Performed By: #### C BC #### [facility] [address] [place] [address] Dr. Evangelist Chicas Hemoglobin (Bld) [Mass/Vol] 13.0 g/dL Normal 12.0-16.0 [facility] Comment on above: Performed By: #### C BC #### [facility] [address] [place] [address] Dr. Evangelist Chicas IG # 0.03 10e3/ul Normal 0.00-0.03 [facility] Comment on above: Performed By: #### C BC #### [facility] [address] [place] [address] Dr. Evangelist Chicas IG % 0.5 % Normal 0.0-0.5 [facility] Comment on above: Performed By: #### C BC #### [facility] [address] [place] [address] Dr. Evangelist Chicas LYMPH # 0.4 103/ul Critically low 1.2-3.8 [facility] Comment on above: Performed By: #### C BC #### [facility] [address] [place] [address] Dr. Evangelist Chicas Lymphocytes/100 WBC (Bld) 5.8 % Critically low 20.5-60.0 [facility] Comment on above: Performed By: #### C BC #### [facility] [address] [place] [address] Dr. Evangelist Chicas MANUAL DIFF REQ NO Normal [facility] Comment on above: Performed By: #### C BC #### [facility] [address] [place] [address] Dr. Evangelist Chicas MCH (RBC) [Entitic mass] 29.3 pg Normal 26.7-34.0 [facility] Comment on above: Performed By: #### C BC #### [facility] [address] [place] [address] Dr. Evangelist Chicas MCHC (RBC) [Mass/Vol] 31.2 g/dL Normal 29.9-35.2 [facility] Comment on above: Performed By: #### C BC #### [facility] [address] [place] [address] Dr. Evangelist Chicas MCV (RBC) [Entitic vol] 93.9 fL Normal 81.0-99.0 [facility] Comment on above: Performed By: #### C BC #### [facility] [address] [place] [address] Dr. Evangelist Chicas MONO # 0.0 103/ul Critically low 0.3-0.8 [facility] Comment on above: Performed By: #### C BC #### [facility] [address] [place] [address] Dr. Evangelist Chicas Monocytes/100 WBC (Bld) 0.6 % Critically low 1.7-12.0 [facility] Comment on above: Performed By: #### C BC #### [facility] [address] [place] [address] Dr. Evangelist Chicas NEUT # 6.0 103/ul Normal 1.4-6.5 [facility] Comment on above: Performed By: #### C BC #### [facility] [address] [place] [address] Dr. Evangelist Chicas Neutrophils/100 WBC (Bld) 92.9 % Critically high 43.0-75.0 [facility] Comment on above: Performed By: #### C BC #### [facility] [address] [address] [address] Evangelist Chicas Platelet mean volume (Bld) [Entitic vol] 10.8 fL Normal 9.5-13.5 [facility] Comment on above: Performed By: #### C BC #### [facility] [address] [place] [address] Dr. Evangelist Chicas PLT 141 103/ul Critically low 150-450 [facility] Comment on above: Performed By: #### C BC #### [facility] [address] [address] [address] Evangelist Chicas RBC 4.44 106/ul Normal 4.20-5.40 [facility] Comment on above: Performed By: #### C BC #### [facility] [address] [place] [address] Dr. Evangelist Chicas WBC 6.4 103/ul Normal 4.0-11.0 [facility] Comment on above: Performed By: #### C BC #### [facility] [address] [place] [address] Dr. Evangelist Chicas PROF CHEM 8 (BAS METB)on Anion gap [Moles/Vol] 7.5 mmol/L Normal [facility] Comment on above: Performed By: #### B MP #### [facility] [address] [place] [address] Dr. Evangelist Chicas Calcium [Mass/Vol] 8.9 mg/dL Normal 8.5-10.1 [facility] Comment on above: Performed By: #### B MP #### [facility] [address] [place] [address] Dr. Evangelist Chicas Chloride [Moles/Vol] 100 mmol/L Normal 98-107 [facility] Comment on above: Performed By: #### B MP #### [facility] [address] [place] [address] Dr. Evangelist Chicas CO2 [Moles/Vol] 33.9 mmol/L Critically high 21.0-32.0 [facility] Comment on above: Performed By: #### B MP #### [facility] [address] [address] [address] Evangelist Chicas Creatinine [Mass/Vol] 0.65 mg/dL Normal 0.55-1.02 [facility] Comment on above: Performed By: #### B MP #### [facility] [address] [address] [address] Evangelist Chicas EGFR-AF CITIZEN [place] >60 Normal >=60 [facility] Comment on above: Performed By: #### B MP #### [facility] [address] [address] [address] Evangelist Chicas EGFR-NON AF CITIZEN OF [place] >60 Normal >=60 [facility] Comment on above: Performed By: #### B MP #### [facility] [address] [place] [address] Dr. Evangelist Chicas Glucose [Mass/Vol] 152 mg/dL Critically high 74-106 [facility] Comment on above: Performed By: #### B MP #### [facility] [address] [place] [address] Dr. Evangelist Chicas Potassium [Moles/Vol] 4.4 mmol/L Normal 3.5-5.1 [facility] Comment on above: Performed By: #### B MP #### [facility] [address] [place] [address] Dr. Evangelist Chicas Sodium [Moles/Vol] 137 mmol/L Normal 136-145 [facility] Comment on above: Performed By: #### B MP #### [facility] [address] [place] [address] Dr. Evangelist Chicas Urea nitrogen [Mass/Vol] 16.0 mg/dL Normal 7.0-18.0 [facility] Comment on above: Performed By: #### B MP #### [facility] [address] [place] [address] Dr. Evangelist Chicas Urea nitrogen/Creatinin e [Mass ratio] 24.6 mg/mg Normal [facility] Comment on above: Performed By: #### B MP #### [facility] [address] [place] [address] Dr. Evangelist Chicas BNPon 11-10-2022 Natriuretic peptide B (Bld) [Mass/Vol] 330.0 pg/mL Normal <=900.0 [facility] Comment on above: Performed By: #### B MP #### [facility] [address] [place] [address] Dr. Evangelist Chicas CARDIAC LIS ADMITon 023 CK [Catalytic activity/Vol] 40 U/L Normal 26-192 [facility] Comment on above: Performed By: #### D DIM #### [facility] [address] [place] [address] Dr. Evangelist Chicas CK.MB [Mass/Vol] 1.06 ng/mL Normal <=3.60 [facility] Comment on above: Performed By: #### D DIM #### [facility] [address] [place] [address] Dr. Evangelist Chicas HSTROP 21.6 pg/mL Normal 4.0-51.3 [facility] Comment on above: Result Comment: CUT- OFF POINTS HAVE BEEN ESTABLISHED BASED ON THE FOURTH UNIVERSAL DEFINITIONS OF MYOCARDIAL INFARCTION. THE UPPER REFERENCE LIMIT (URL) OF TROPONIN, DEFINED THE 99TH PERCENTILE OF cTnI DISTRIBUTION IN A REFERENCE POPULATION, HAS BEEN CONFIRMED THE DECISION THRESHOLD FOR [place] DIAGNOSIS. Performed By: #### D DIM #### [facility] [address] [place] [address] Dr. Evangelist Chicas VANNA 41 ng/mL Normal 9-82 [facility] Comment on above: Performed By: #### D DIM #### [facility] [address] [place] [address] Dr. Evangelist Chicas CBC AUTO DIFFon 11-10-2022 BASO # 0.1 103/ul Normal 0.0-0.1 [facility] Comment on above: Performed By: #### B MP #### [facility] [address] [place] [address] Dr. Evangelist Chicas Basophils/100 WBC (Bld) 0.7 % Normal 0.2-2.0 [facility] Comment on above: Performed By: #### B MP #### [facility] [address] [place] [address] Dr. Evangelist Chicas EO # 0.1 103/ul Normal 0.0-0.7 [facility] Comment on above: Performed By: #### B MP #### [facility] [address] [place] [address] Dr. Evangelist Chicas Eosinophils/100 WBC (Bld) 1.1 % Normal 0.9-7.0 [facility] Comment on above: Performed By: #### B MP #### [facility] [address] [place] [address] Dr. Evangelist Chicas Erythrocyte distribution width (RBC) [Ratio] 12.8 % Normal 11.0-15.0 [facility] Comment on above: Performed By: #### B MP #### [facility] [address] [place] [address] Dr. Evangelist Chicas Hematocrit (Bld) [Volume fraction] 41.1 % Normal 36.0-48.0 [facility] Comment on above: Performed By: #### B MP #### [facility] [address] [place] [address] Dr. Evangelist Chicas Hemoglobin (Bld) [Mass/Vol] 13.2 g/dL Normal 12.0-16.0 [facility] Comment on above: Performed By: #### B MP #### [facility] [address] [place] [address] Dr. Evangelist Chicas IG # 0.02 10e3/ul Normal 0.00-0.03 [facility] Comment on above: Performed By: #### B MP #### [facility] [address] [place] [address] Dr. Evangelist Chicas IG % 0.3 % Normal 0.0-0.5 [facility] Comment on above: Performed By: #### B MP #### [facility] [address] [place] [address] Dr. Evangelist Chicas LYMPH # 0.7 103/ul Critically low 1.2-3.8 [facility] Comment on above: Performed By: #### B MP #### [facility] [address] [place] [address] Dr. Evangelist Chicas Lymphocytes/100 WBC (Bld) 9.5 % Critically low 20.5-60.0 [facility] Comment on above: Performed By: #### B MP #### [facility] [address] [place] [address] Dr. Evangelist Chicas MANUAL DIFF REQ NO Normal [facility] Comment on above: Performed By: #### B MP #### [facility] [address] [place] [address] Dr. Evangelist Chicas MCH (RBC) [Entitic mass] 29.6 pg Normal 26.7-34.0 [facility] Comment on above: Performed By: #### B MP #### [facility] [address] [place] [address] Dr. Evangelist Chicas MCHC (RBC) [Mass/Vol] 32.1 g/dL Normal 29.9-35.2 [facility] Comment on above: Performed By: #### B MP #### [facility] [address] [place] [address] Dr. Evangelist Chicas MCV (RBC) [Entitic vol] 92.2 fL Normal 81.0-99.0 [facility] Comment on above: Performed By: #### B MP #### [facility] [address] [place] [address] Dr. Evangelist Chicas MONO # 0.6 103/ul Normal 0.3-0.8 [facility] Comment on above: Performed By: #### B MP #### [facility] [address] [place] [address] Dr. Evangelist Chicas Monocytes/100 WBC (Bld) 8.1 % Normal 1.7-12.0 [facility] Comment on above: Performed By: #### B MP #### [facility] [address] [place] [address] Dr. Evangelist Chicas NEUT # 6.1 103/ul Normal 1.4-6.5 [facility] Comment on above: Performed By: #### B MP #### [facility] [address] [place] [address] Dr. Evangelist Chicas Neutrophils/100 WBC (Bld) 80.3 % Critically high 43.0-75.0 [facility] Comment on above: Performed By: #### B MP #### [facility] [address] [place] [address] Dr. Evangelist Chicas Platelet mean volume (Bld) [Entitic vol] 9.8 fL Normal 9.5-13.5 [facility] Comment on above: Performed By: #### B MP #### [facility] [address] [address] [address] Evangelist Chicas PLT 180 103/ul Normal 150-450 [facility] Comment on above: Performed By: #### B MP #### [facility] [address] [place] [address] Dr. Evangelist Chicas RBC 4.46 106/ul Normal 4.20-5.40 [facility] Comment on above: Performed By: #### B MP #### [facility] [address] [place] [address] Dr. Evangelist Chicas WBC 7.6 103/ul Normal 4.0-11.0 [facility] Comment on above: Performed By: #### B MP #### [facility] [address] [place] [address] Dr. Evangelist Chicas CTA CHEST WO W [...] DEL ENRIQUE Date: 2022-11-10 17:30 Normal [facility] Covid-19 PCR (CVDTB)on SARS-CoV-2 (COVID-19) RNA SHENG+probe Ql (Unsp spec) Not detected Normal NOT DETECTED [facility] Comment on above: Result Comment: When diagnostic [...] for this test is supported by the [place] of [employer] and Human Service's declaration that [...] used). Performed By: #### B MP #### [facility] [address] [place], [place] [address] Dr. Evangelist Chicas D-DIMERon 11-10-2022 D-DIMER 0.63 mg/L FEU Critically high <=0.59 [facility] Comment on above: Performed By: #### D DIM #### [facility] [address] [place], [place] [address] Dr. Evangelist Chicas D-DIMER COMMENTS SEE BELOW Normal [facility] Comment on above: Result Comment: Incr [...] hospitalization. Performed By: #### D DIM #### [facility] [address] [place] [address] Dr. Evangelist Chicas ER URINE PROFILEon 3 Bilirubin Ql (U) Negative Normal NEGATIVE [facility] Comment on above: Performed By: #### U MICRO, ERUR #### [facility] [address] [place] [address] Dr. Evangelist Chicas Clarity (U) CLEAR Normal CLEAR [facility] Comment on above: Performed By: #### U MICRO, ERUR #### [facility] [address] [place] [address] Dr. Evangelist Chicas Color (U) LT. YELLOW Normal YELLOW [facility] Comment on above: Performed By: #### U MICRO, ERUR #### [facility] [address] [place] [address] Dr. Evangelist NURD A micrscopic examination will be performed if indicated. Normal [facility] Comment on above: Performed By: #### U MICRO, ERUR #### [facility] [address] [place] [address] Dr. Evangelist Chicas Glucose Ql (U) Negative Normal NEGATIVE [facility] Comment on above: Performed By: #### U MICRO, ERUR #### [facility] [address] [place] [address] Dr. Evangelist Chicas Hemoglobin Ql (U) TRACE-INTACT Abnormal NEGATIVE [facility] Comment on above: Performed By: #### U MICRO, ERUR #### [facility] [address] [place] [address] Dr. Evangelist Chicas Ketones Ql (U) Negative Normal NEGATIVE [facility] Comment on above: Performed By: #### U MICRO, ERUR #### [facility] [address] [place] [address] Dr. Evangelist Chicas LEUKOCYTES Negative Normal NEGATIVE [facility] Comment on above: Performed By: #### U MICRO, ERUR #### [facility] [address] [place] [address] Dr. Evangelist Chicas Nitrite Ql (U) Negative Normal NEGATIVE [facility] Comment on above: Performed By: #### U MICRO, ERUR #### [facility] [address] [place] [address] Dr. Evangelist Chicas pH (U) 6.0 [pH] Normal 5-9 [facility] Comment on above: Performed By: #### U MICRO, ERUR #### [facility] [address] [place] [address] Dr. Evangelist Chicas SPEC GRAVITY 1.010 Normal 1.005-<=1.025 [facility] Comment on above: Performed By: #### U MICRO, ERUR #### [facility] [address] [place] [address] Dr. Evangelist Chicas UA PROTEIN Negative Normal NEGATIVE/ TRACE [facility] Comment on above: Performed By: #### U MICRO, ERUR #### [facility] [address] [place] [address] Dr. Evangelist Chicas UR MICRO IND INDICATED Normal [facility] Comment on above: Performed By: #### U MICRO, ERUR #### [facility] [address] [place] [address] Dr. Evangelist Chicas Urobilinogen Qn (U) 0.2 {Amalia'U}/dL Normal 0.2 - 1.0 [facility] Comment on above: Performed By: #### U MICRO, ERUR #### [facility] [address] [place] [address] Dr. Evangelist Chicas INFLUENZA A AND B AGon 11-10 INFLUANEGH SEE BELOW Normal [facility] Comment on above: Result Comment: Nega tive for Flu A protein angiten. Infection due to Flu A cannot be ruled out. Flu A angiten in the sample may be below the detection limit of the test. Performed By: #### D DIM #### [facility] [address] [place] [address] Dr. Evangelist Chicas [facility] SEE BELOW Normal [facility] Comment on above: Result Comment: Nega tive for Flu B protein antigen. Infection due to Flu B cannot be ruled out. Flu B antigen in the sample may be below the detection limit of the test. Performed By: #### D DIM #### [facility] [address] [place] [address] Dr. Evangelist Chicas INFLUENZA A AG Negative Normal NEGATIVE SEE COMMENT [facility] Comment on above: Performed By: #### D DIM #### [facility] [address] [place] [address] Dr. Evangelist Chicas INFLUENZA B AG Negative Normal NEGATIVE SEE COMMENT [facility] Comment on above: Performed By: #### D DIM #### [facility] [address] [place] [address] Dr. Evangelist Chicas PROF 14(COMP METB)on 023 Albumin [Mass/Vol] 3.1 g/dL Critically low 3.4-5.0 [facility] Comment on above: Performed By: #### B MP #### [facility] [address] [place] [address] Dr. Evangelist Chicas Albumin/Globulin [Mass ratio] 0.7 {ratio} Normal [facility] Comment on above: Performed By: #### B MP #### [facility] [address] [place] [address] Dr. Evangelist Chicas ALP [Catalytic activity/Vol] 108 U/L Normal 46-116 [facility] Comment on above: Performed By: #### B MP #### [facility] [address] [place] [address] Dr. Evangelist Chicas ALT [Catalytic activity/Vol] 20 U/L Normal 14-59 [facility] Comment on above: Performed By: #### B MP #### [facility] [address] [place] [address] Dr. Evangelist Chicas Anion gap [Moles/Vol] 6.0 mmol/L Normal [facility] Comment on above: Performed By: #### B MP #### [facility] [address] [address] [address] Evangelist Chicas AST [Catalytic activity/Vol] 16 U/L Normal 15-37 [facility] Comment on above: Performed By: #### B MP #### [facility] [address] [address] [address] Evangelist Chicas Bilirubin [Mass/Vol] 0.6 mg/dL Normal 0.2-1.0 [facility] [facility] Comment on above: Performed By: #### B MP #### [facility] [address] [address] [address] Evangelist Chicas Calcium [Mass/Vol] 9.1 mg/dL Normal 8.5-10.1 [facility] Comment on above: Performed By: #### B MP #### [facility] [address] [address] [address] Evangelist Chicas Chloride [Moles/Vol] 97 mmol/L Critically low 98-107 [facility] Comment on above: Performed By: #### B MP #### [facility] [address] [address] [address] Evangelist Chicas CO2 [Moles/Vol] 36.9 mmol/L Critically high 21.0-32.0 [facility] Comment on above: Performed By: #### B MP #### [facility] [address] [address] [address] Evangelist Chicas Creatinine [Mass/Vol] 0.71 mg/dL Normal 0.55-1.02 [facility] Comment on above: Performed By: #### B MP #### [facility] [address] [address] [address] Evangelist Chicas EGFR-AF CITIZEN OF [place] >60 Normal >=60 [facility] Comment on above: Performed By: #### B MP #### [facility] [address] [address] [address] Evangelist Chicas EGFR-NON AF CITIZEN OF [place] >60 Normal >=60 [facility] Comment on above: Performed By: #### B MP #### [facility] [address] [address] [address] Evangelist Chicas Globulin (S) [Mass/Vol] 4.4 g/dL Normal [facility] Comment on above: Performed By: #### B MP #### [facility] [address] [address] [address] Evangelist Chicas Glucose [Mass/Vol] 124 mg/dL Critically high 74-106 [facility] Comment on above: Performed By: #### B MP #### [facility] [address] [address] [address] Evangelist Chicas Potassium [Moles/Vol] 3.9 mmol/L Normal 3.5-5.1 [facility] Comment on above: Performed By: #### B MP #### [facility] [address] [place] [address] Dr. Evangelist Chicas Protein [Mass/Vol] 7.5 g/dL Normal 6.4-8.2 [facility] Comment on above: Performed By: #### B MP #### [facility] [address] [place] [address] Dr. Evangelist Chicas Sodium [Moles/Vol] 136 mmol/L Normal 136-145 [facility] Comment on above: Performed By: #### B MP #### [facility] [address] [place] [address] Dr. Evangelist Chicas Urea nitrogen [Mass/Vol] 17.0 mg/dL Normal 7.0-18.0 [facility] Comment on above: Performed By: #### B MP #### [facility] [address] [place] [address] Dr. Evangelist Chicas Urea nitrogen/Creatinin e [Mass ratio] 23.9 mg/mg Normal [facility] Comment on above: Performed By: #### B MP #### [facility] [address] [place] [address] Dr. Evangelist Chicas URINE MICROSCOPIC ONLYon BACTERIA NONE SEEN Normal NONE SEEN [facility] Comment on above: Performed By: #### U MICRO, ERUR #### [facility] [address] [place] [address] Dr. Evangelist Chicas Bacteria identified Cx Nom (U) NOT INDICATED Normal [facility] Comment on above: Performed By: #### U MICRO, ERUR #### [facility] [address] [place] [address] Dr. Evangelist Chicas CAST NONE SEEN Normal NONE SEEN [facility] Comment on above: Performed By: #### U MICRO, ERUR #### [facility] [address] [address] [address] Evangelist Chicas Crystals LM Nom (Urine sed) NONE SEEN Normal NONE SEEN [facility] Comment on above: Performed By: #### U MICRO, ERUR #### [facility] [address] [place] [address] Dr. Evangelist Chicas Epithelial cells LM Ql (Urine sed) FEW Abnormal NONE SEEN /RARE [facility] Comment on above: Performed By: #### U MICRO, ERUR #### [facility] [address] [place] [address] Dr. Evangelist Chicas MUCOUS NONE SEEN Normal NONE SEEN [facility] Comment on above: Performed By: #### U MICRO, ERUR #### [facility] [address] [place] [address] Dr. Evangelist Chicas RBC 0-2 Normal 0-2 [facility] Comment on above: Performed By: #### U MICRO, ERUR #### [facility] [address] [place] [address] Dr. Evangelist Chicas WBC NONE SEEN Normal NONE SEEN [facility] Comment on above: Performed By: #### U MICRO, ERUR #### [facility] [address] [place] [address] Dr. Evangelist Chicas XR CHEST 1 Von [...] by: JH JAIN Date: 2022-11-10 15:24 Normal [facility] Vital Signs Date Time Vital Sign Value Performing Clinician Facility 08-15-2025 11:20-0400 Body height 162.56 cm Mane Lee MD Work Phone: [facility] 08-15-2025 11:20-0400 Body mass index (BMI) [Ratio] 46.2 kg/m2 Mane Lee MD Work Phone: [facility] 08-15-2025 11:20-040 Body temperature 97.5 [degF] Mane Lee MD Work Phone: [facility] 08-15-2025 11:20-0400 Body weight 122.07 kg Mane Lee MD Work Phone: [facility] 08-15-2025 11:20-0400 Diastolic blood pressure 78 mm[Hg] Mane Lee MD Work Phone: [facility] 08-15-2025 11:20-0400 Heart rate 105 /min Mane Lee MD Work Phone: [facility] 08-15-2025 11:20-0400 Respiratory rate 18 /min Mane Lee MD Work Phone: [facility] 08-15-2025 11:20-0400 SaO2% (BldA) [Mass fraction] 95 % Mane Lee MD Work Phone: [facility] 08-15-2025 11:20-0400 Systolic blood pressure 130 mm[Hg] Mane Lee MD Work Phone: [facility] 07-22-2025 10:06-0400 Body height 160.02 cm Mane Lee MD Work Phone: [facility] 07-22-2025 10:06-0400 Body mass index (BMI) [Ratio] 46.7 kg/m2 Mane Lee MD Work Phone: [facility] 07-22-2025 10:06-0400 Body temperature 97.1 [degF] Mane Lee MD Work Phone: [facility] 07-22-2025 10:06-0400 Body weight 119.74 kg Mane Lee MD Work Phone: [facility] 07-22-2025 10:06-0400 Diastolic blood pressure 70 mm[Hg] Mane Lee MD Work Phone: [facility] 07-22-2025 10:06-0400 Heart rate 89 /min Mane Lee MD Work Phone: [facility] 07-22-2025 10:06-0400 Respiratory rate 20 /min Mane Lee MD Work Phone: [facility] 07-22-2025 10:06-0400 SaO2% (BldA) [Mass fraction] 97 % Mane Lee MD Work Phone: [facility] 07-22-2025 10:06-0400 Systolic blood pressure 124 mm[Hg] Mane Lee MD Work Phone: [facility] 04-14-2025 10:22-0400 Body height 162.6 cm Mane Lee MD Work Phone: [facility] 04-14-2025 10:22-0400 Body mass index (BMI) [Ratio] 46.35 kg/m2 Mane Lee MD Work Phone: [facility] 04-14-2025 10:22-0400 Body temperature 97.3 [degF] Mane Lee MD Work Phone: [facility] 04-14-2025 10:22-0400 Body weight 122.47 kg Mane Lee MD Work Phone: [facility] 04-14-2025 10:22-0400 Diastolic blood pressure 74 mm[Hg] Mane Lee MD Work Phone: [facility] 04-14-2025 10:22-0400 Heart rate 87 /min Mane Lee MD Work Phone: [facility] 04-14-2025 10:22-0400 Respiratory rate 20 /min Mane Lee MD Work Phone: [facility] 04-14-2025 10:22-0400 SaO2% (BldA) [Mass fraction] 97 % Mane Lee MD Work Phone: [facility] 04-14-2025 10:22-0400 Systolic blood pressure 126 mm[Hg] Mane Lee MD Work Phone: [facility] 02-14-2025 11:30-0400 Body height 162.6 cm Mane Lee MD Work Phone: [facility] 02-14-2025 11:30-0400 Body mass index (BMI) [Ratio] 46.86 kg/m2 Mane Lee MD Work Phone: [facility] 02-14-2025 11:30-0400 Body temperature 97.81 [degF] Mane Lee MD Work Phone: [facility] 02-14-2025 11:30-0400 Body weight 123.83 kg Mane Lee MD Work Phone: [facility] 02-14-2025 11:30-0400 Diastolic blood pressure 70 mm[Hg] Mane Lee MD Work Phone: [facility] 02-14-2025 11:30-0400 Heart rate 89 /min Mane Lee MD Work Phone: [facility] 02-14-2025 11:30-0400 Respiratory rate 20 /min Mane Lee MD Work Phone: [facility] 02-14-2025 11:30-0400 SaO2% (BldA) [Mass fraction] 96 % Mane Lee MD Work Phone: [facility] 02-14-2025 11:30-0400 Systolic blood pressure 134 mm[Hg] Mane Lee MD Work Phone: [facility] 01-10-2025 10:38-0500 Body height 162.6 cm Mane Lee MD Work Phone: [facility] 01-10-2025 10:38-0500 Body mass index (BMI) [Ratio] 48.58 kg/m2 Mane Lee MD Work Phone: [facility] 01-10-2025 10:38-0500 Body temperature 97.5 [degF] Mane Lee MD Work Phone: [facility] 01-10-2025 10:38-0500 Body weight 128.37 kg Mane Lee MD Work Phone: [facility] 01-10-2025 10:38-0500 Diastolic blood pressure 68 mm[Hg] Mane Lee MD Work Phone: [facility] 01-10-2025 10:38-0500 Heart rate 96 /min Mane Lee MD Work Phone: [facility] 01-10-2025 10:38-0500 Respiratory rate 22 /min Mane Lee MD Work Phone: [facility] 01-10-2025 10:38-0500 SaO2% (BldA) [Mass fraction] 98 % Mane Lee MD Work Phone: [facility] 01-10-2025 10:38-0500 Systolic blood pressure 154 mm[Hg] Mane Lee MD Work Phone: [facility] 08-04-2024 11:22-0400 Body height 160 cm Mane Lee MD Work Phone: [facility] 08-04-2024 11:22-0400 Body mass index (BMI) [Ratio] 47.12 kg/m2 Mane Lee MD Work Phone: [facility] 08-04-2024 11:22-0400 Body temperature 97.3 [degF] Mane Lee MD Work Phone: [facility] 08-04-2024 11:22-0400 Body weight 120.66 kg Mane Lee MD Work Phone: [facility] 08-04-2024 11:22-0400 Diastolic blood pressure 74 mm[Hg] Mane Lee MD Work Phone: [facility] 08-04-2024 11:22-0400 Heart rate 99 /min Mane Lee MD Work Phone: [facility] 08-04-2024 11:22-0400 Respiratory rate 22 /min Mane Lee MD Work Phone: [facility] 08-04-2024 11:22-0400 SaO2% (BldA) [Mass fraction] 96 % Mane Lee MD Work Phone: [facility] 08-04-2024 11:22-0400 Systolic blood pressure 140 mm[Hg] Mane Lee MD Work Phone: [facility] 07-01-2024 10:31-0400 Body height 160 cm Mane Lee MD Work Phone: [facility] 07-01-2024 10:31-0400 Body mass index (BMI) [Ratio] 47.65 kg/m2 Mane Lee MD Work Phone: [facility] 07-01-2024 10:31-0400 Body temperature 97.11 [degF] Mane Lee MD Work Phone: [facility] 07-01-2024 10:31-0400 Body weight 122.02 kg Mane Lee MD Work Phone: [facility] 07-01-2024 10:31-0400 Diastolic blood pressure 82 mm[Hg] Mane Lee MD Work Phone: [facility] 07-01-2024 10:31-0400 Heart rate 90 /min Mane Lee MD Work Phone: [facility] 07-01-2024 10:31-0400 Respiratory rate 22 /min Mane Lee MD Work Phone: [facility] 07-01-2024 10:31-0400 SaO2% (BldA) [Mass fraction] 97 % Mane Lee MD Work Phone: [facility] 07-01-2024 10:31-0400 Systolic blood pressure 130 mm[Hg] Mane Lee MD Work Phone: [facility] 12-23-2023 13:24-0500 Body height 160 cm Mane Lee MD Work Phone: [facility] 12-23-2023 13:24-0500 Body mass index (BMI) [Ratio] 49.25 kg/m2 Mane Lee MD Work Phone: [facility] 12-23-2023 13:24-0500 Body temperature 97.3 [degF] Mane Lee MD Work Phone: [facility] 12-23-2023 13:24-0500 Body weight 126.1 kg Mnae Lee MD Work Phone: [facility] [...] 08-15-2025 ambulatory Mane Lee MD Work Phone: [facility] Work Phone: Start: 08-15-2025 End: 08-15-2025 Patient encounter procedure Mane Lee MD -[facility] Work Phone: Start: 08-08-2025 End: 08-08-2025 Patient encounter procedure Mane Lee MD -CT [facility] Work Phone: Start: 08-08-2025 End: 08-08-2025 ambulatory Mane Lee MD Work Phone: [facility] Work Phone: Start: 07-22-2025 End: 07-22-2025 ambulatory Mane Lee MD Work Phone: [facility] Work Phone: Start: 07-22-2025 End: 07-22-2025 Patient encounter procedure Mane Lee MD -[facility] Work Phone: Start: 05-27-2025 [...] patient 40-64yrs Mane Lee MD Work Phone: [facility] Comment on above: Annual [...] Bamboo flowsheet Mane Lee MD Work Phone: [facility] Start: 08-04-2024 End: 08-04-2024 Bamboo flowsheet Mane Lee MD Work Phone: [facility] Start: 08-04-2024 End: 08-04-2024 ambulatory MANE LEE Not Available Start: 08-04-2024 End: 08-04-2024 Office outpatient visit 15 minutes Mane Lee MD Work Phone: [facility] Comment on above: Acute [...] 03-22-2024 End: 03-23-2024 ambulatory Corine Frye MD Facility:[facility] Start: 01-26-2024 End: 01-27-2024 ambulatory Corine Frye MD Facility: [facility] Start: 12-29-2023 End: 12-30-2023 ambulatory Corine Frye [...] 12-10-2023 ambulatory MD Mane Lee Work Phone: [facility] Work Phone: Start: 12-10-2023 End: 12-10-2023 Patient encounter procedure MD Mane Lee Work Phone: [facility] Work Phone: Start: 08-25-2023 End: 08-26-2023 ambulatory Corine Frye MD Facility:[facility] Start: 01-29-2023 End: 01-30-[address] [...] neoplasm of colon [facility] Start: 08-15-2025 Patient referral [facility] Work Phone: Start: 07-22-2025 End: 07-22-2025 Patient encounter procedure 07/22/2025 10:00 AM EDT Office Visit [facility] [address] [place] [address] Mane Lee MD [address] [place] [address] [facility] Start: 07-11-2025 Influenza vaccination Influenza Vacc ine (#1) [facility] Start: 06-25-2025 Screening for malign ant neoplasm of breast Mammogram [facility] Start: 04-14-2025 End: 04-14-2025 Patient encounter procedure 04/14/2025 10:15 AM EDT Office Visit [facility] [address] [place] [address] Mane Lee MD [address] [place] [phone] [facility] Start: 04-12-2025 End: 04-12-2025 Patient encounter procedure 04/12/2025 10:30 AM EDT Office Visit [facility] [address] [place] [address] Mane Lee MD [address] [place] [phone] [facility] Start: 02-14-2025 End: 02-14-[address] [facility] Comment on above: Arrived Start: 01-10-2025 End: 01-10-2026 Basic metabolic 1998 panel - Serum or Plasma Basic metabolic panel Lab Routine Annual physical exam Expected: 01/10/2025 (Approximate), Expires: 01/10/2026 [facility] Comment on above: Expected: 01/10/2025 (Approximate), Expires: 01/10/2026 Start: 01-10-2025 End: 01-10-2026 CBC W Auto Differential panel - Blood CBC and differential Lab Routine Annual physical exam Expected: 01/10/2025 (Approximate), Expires: 01/10/2026 [facility] Comment on above: Expected: 01/10/2025 (Approximate), Expires: 01/10/2026 Start: 01-10-2025 End: 01-10-2026 CT Chest for screening WO contrast CT lung screening low dose Imaging Routine Cigarette smoker Expected: 01/10/2025, Expires: 01/10/2026 [facility] Comment on above: Expected: 01/10/2025 , Expires: 01/10/2026 Start: 01-10-2025 End: 01-10-2026 Hemoglobin A1c/Hemoglobin.total in Blood Hemoglobin A1c Lab Routine Annual physical exam Expected: 01/10/2025 (Approximate), Expires: 01/10/2026 [facility] Work Phone: Comment on above: Expected: 01/10/2025 (Approximate), Expires: 01/10/2026 Start: 01-10-2025 End: 01-10-2026 Hepatic function 2000 panel - Serum or Plasma Hepatic function panel Lab Routine Annual physical exam Expected: 01/10/2025 (Approximate), Expires: 01/10/2026 [facility] Comment on above: Expected: 01/10/2025 (Approximate), Expires: 01/10/2026 Start: 01-10-2025 End: 01-10-2026 Lipid 1996 panel - Serum or Plasma Lipid panel Lab Routine Annual physical exam Expected: 01/10/2025 (Approximate), Expires: 01/10/2026 [facility] Comment on above: Expected: 01/10/2025 (Approximate), Expires: 01/10/2026 Start: 01-10-2025 End: 01-10-2026 Thyrotropin [Units/volume] in Serum or Plasma TSH Lab Routine Annual physical exam Expected: 01/10/2025 (Approximate), Expires: 01/10/2026 [facility] Comment on above: Expected: 01/10/2025 (Approximate), Expires: 01/10/2026 Start: 01-10-2025 End: 01-10-2025 Patient encounter procedure [facility] Comment on above: Arrived Start: 07-11-2024 Influenza vaccination Influenza Vacc ine (#1) [facility] Start: 07-01-2024 End: 07-01-2024 Patient encounter procedure 07/01/2024 10:30 AM EDT Office Visit [facility] [address] [place] [address] Mane Lee MD [address] [place] [phone] Arrived [facility] Comment on above: Arrived Start: 02-24-2024 End: 02-24-2024 Patient encounter procedure 02/24/2024 9:00 AM EDT Office Visit [facility] [address] [place] [phone] Mane Lee MD [address] [place] [phone] [facility] Start: 01-30-2024 Screening for malign ant neoplasm of breast Mammogram [facility] Start: 12-23-2023 End: 12-23-2023 Patient encounter procedure 12/23/2023 1:15 PM EST Office Visit [facility] [address] [place] [address] Mane Lee MD [address] [place] [address] Arrived [facility] Comment on above: Arrived Start: 1993 Screening for malign ant neoplasm of cervix [facility] Start: 1984 Screening for malign ant neoplasm of cervix Pap Smear [facility] Start: 1965 Screening for malign ant neoplasm of colon [facility] MR Knee - left WO contrast [facility] Patient referral [facility] Work Phone: Immunizations Immunization Date Immunization Notes Care Provider Fa cility 11-24-2024 influenza virus vacc ine, unspecified formulation Mane Lee MD Work Phone: [facility] 08-21-2023 influenza virus vacc ine, unspecified formulation Mane Lee MD Work Phone: [facility] Healthcare Payers Date Payer Category Payer Self-pay 2023 [facility] Shield [employer] [id number] 2023 Unknown [id number] 2022 Unknown [id number] 1963 Unknown [id number] 2.16.840.1.173351.3.579.2. 593 1963 Unknown [id number] 2.16.840.1.156637.3.579.2. 593 1963 Unknown [id number] 2.16.840.1.849315.3.579.2. 196 1963 Unknown [id number] 2.16.840.1.365161.3.579.2. 196 1963 Unknown [id number] 2.16.840.1.460776.3.579.2. 196 1963 Unknown [id number] 2.16.840.1.868903.3.579.2. 196 1963 Unknown [id number] 2.16.840.1.675087.3.579.2. 1259 1963 Unknown [id number] 2.16.840.1.759382.3.579.2. 1259 1963 Unknown [id number] 2.16.840.1.284978.3.579.2. 1259 1963 Unknown [id number] 2.16.840.1.433696.3.579.2. 1259 1963 Unknown [id number] 2.16.840.1.231930.3.579.2. 1259 1963 Unknown [id number] 2..840.1.744674.3.579.2. 1259 1963 Unknown [id number] 2..840.1.252508.3.579.2. 1259 1959 Unknown [id number] Unknown [facility] [id number] Unknown [id number]. 531 Social History Date Type Detail Facility Tobacco smoking stat [facility] Unknown if ever smoked [facility] Work Phone: Start: 1965 Sex Assigned At Female F [facility] Start: 10-31-2023 End: 08-15-2025 Tobacco smoking status DCIS Smokes tobacco daily [facility] History of [...] file [facility] Sex Female (finding) [facility] Clinical Notes 12-23-2023 to 08-15-2025 Note Date & Type Note Facility 08-15-2025 Hospital Discharg e instructions Ambulatory OrdersReferral to Orthopedic Surgery Time Frame: 08/15/25, Location: None Selected [facility] Work Phone: 08-08-2025 Radiology Diagnostic study note [facility] [place] [address] [place] [address] CT Scan Report Signed Patient: Lawrence Harrison MR#: [id number] : 1965 Acct:[id number] Age/Sex: 59 / F ADM Date: 5 Loc: CT Room: Type[facility] Attending Dr: Mane Lee MD Copies to: [...] Jr., D.OMartell 08/08/2025 12:43 PM Dictation Location: [place] [address] Transcribed By: [facility] 08/08/25 1243 Dictated By: Owen Smith Jr, DO 08/08/25 1242 Signed By: 08/08/25 1243 [facility] 07-22-2025 Evaluation note Diagnosis Onset Date [...] left knee acute July 22, 2025 9:49am [facility] Work Phone: 1(450) 213-764509-12-2025 Evaluation note* Diagnosis Onset Date Resolution Status [...] of left knee acute August 15 10:57am [facility] Work Phone: 1(184) 193-152206-05-2025 History of Present illness Narrative* Mane Lee MD - 04/14/2025 11:08 AM EDTAssociated Problem(s): Leg edema Edema controlled with lasix. Elevate legs PRN. * Mane Lee MD - 04/14/2025 11:08 AM EDTAssociated Problem(s): Essential hypertension, benign (CMS/HCC) BP controlled and monitor PRN. * Mane Lee MD - 04/14/2025 11:08 AM EDTAssociated Problem(s): COPD (chronic obstructive pulmonary disease) ([facility]) Breathing stable and encouraged to quit smoker. [...] (Adipex-P) 37.5 MG tablet documented [place] [id number] History of Present illness Narrative* aMne Lee MD - 02/14/2025 11:50 AM EDTAssociated Problem(s): Leg edema Edema controlled with lasix. Elevate legs PRN. * Mane Lee MD - 02/14/2025 11:50 AM EDTAssociated Problem(s): Essential hypertension, benign (CMS/HCC) BP controlled and monitor PRN. * Mane Lee MD - 02/14/2025 11:50 AM EDTAssociated Problem(s): COPD (chronic obstructive pulmonary disease) ([facility]) Breathing stable and encouraged to quit smoker. [...] worsening symptoms contact office. documented in this encounterCrossroads [facility] Medical [id number] History of Present illness Narrative* Mane Lee MD - 01/10/2025 11:07 AM ESTAssociated Problem(s): Cigarette smoker Check low dose CT chest * Mane Lee MD - 01/10/2025 11:06 AM ESTAssociated Problem(s): Essential hypertension, benign ([facility]) BP elevated today but previously controlled. Monitor PRN. * Mane Lee MD - 01/10/2025 11:06 AM ESTAssociated Problem(s): COPD (chronic obstructive pulmonary disease) ([facility]) Breathing stable and encouraged to quit smoker. Continue inhalers. * Mane Lee MD - 01/10/2025 11:06 AM ESTAssociated Problem(s): Class 3 severe obesity due to excess calories with serious comorbidity and body mass index (BMI) of 45.0 to 49.9 in adult ([facility]) Patient overweight and difficult time losing weight. [...] years. Advised not to smoke. * Mane Lee MD - 01/10/2025 10:30 AM EST Images [...] Items Addressed This Visit Essential hypertension, benign ([facility]/HCC) BP elevated today but previously controlled. Monitor PRN. COPD (chronic obstructive pulmonary disease) ([facility]) Breathing stable and encouraged to quit smoker. Continue inhalers. Class 3 severe obesity due to excess calories with serious comorbidity and body mass index (BMI) of45.0 to 49.9 in adult ([facility]) Patient overweight and difficult time losing weight. [...] low dose CT chest documented in this encounterCrossroads Regional Medical [id number] History of Present illness Narrative* Mane Lee [...] (Deltasone) 50 MG tablet documented in this encounterCrossroads Regional Medical [id number] History of Present illness Narrative* Mane Lee [...] EDTAssociated Problem(s): COPD (chronic obstructive pulmonary disease) ([facility]) Symptoms stable and continue anoro. Use albuterol [...] (Adipex-P) 37.5 MG tablet documented in this encounterCrossroads Regional Medical [id number] History of Present illness Narrative* Mane Lee [...] off work until 03/08/24. documented in this encounterNOTX HealthcareEvaluation noteNo assessment information availableUpper [facility] Work Phone: Evaluation note* Diagnosis Essential hypertension, benign (CMS/HCC)- Primary Essential hypertension, benign Degenerative lumbar spinal stenosis Spinal stenosis of lumbar region Lumbar disc herniation with radiculopathy Displacement of lumbar intervertebral disc without myelopathy Leg edema Edema Chronic obstructive pulmonary disease, unspecified COPD type (CMS/HCC) documented in this encounter [facility] HealthcareEvaluation note* Diagnosis Essential hypertension, benign (CMS/HCC)- Primary Essential hypertension, benign Leg edema Edema Chronic obstructive pulmonary disease, unspecified COPD type (CMS/HCC) Degenerative lumbar spinal stenosis Spinal stenosis of lumbar region Morbid obesity due to excess calories (CMS/HCC) documented in this encounter [facility] HealthcareEvaluation note* Diagnosis Acute bronchitis due to other specified organisms- Primary Essential hypertension, benign (CMS/HCC) Essential hypertension, benign Spinal stenosis, lumbar region, without neurogenic claudication Vitamin D deficiency Degeneration of lumbar intervertebral disc Degeneration of lumbar or lumbosacral intervertebral disc Lower extremity edema Edema Moderate COPD (chronic obstructive pulmonary disease) (CMS/HCC) documented in this encounter [facility] HealthcareEvaluation note* Diagnosis Essential hypertension, benign (CMS/HCC)- [...] Tobacco use disorder documented in this encounter [facility] HealthcareEvaluation note* Diagnosis Essential hypertension, benign [...] 49.9 in adult documented in this encounter [facility] HealthcareEvaluation note* Diagnosis Essential hypertension, benign (CMS/HCC)- [...] 49.9 in adult documented in this encounter [facility] HealthcareEvaluation note* Diagnosis Essential hypertension, benign [...] 49.9 in adult documented in this encounter [facility] HealthcareEvaluation note* Diagnosis Essential hypertension, benign- Primary [...] (BMI) of 45.0 to 49.9 in adult ([facility]) Essential hypertension, benign- Primary Essential hypertension, benign Chronic obstructive pulmonary disease, unspecified COPD type (HCC) Leg edema Edema Class 3 severe obesity due to excess calories with serious comorbidity and body mass index (BMI) of 45.0 to 49.9 in adult ([facility]) Class 3 severe obesity due to excess calories with serious comorbidity and body mass index (BMI) of 45.0 to 49.9 in adult ([facility]) documented in this encounter [facility]* [...] ft knee acute July 22, 2025 9:49am [facility] Work Phone: Reason for referral (narrative)No reason for referral information availableHenry County Hospital Work Phone: Summary Purpose Family History [...] DATE CREATED AUTHOR AUTHOR'S ORGANIZ ATION 03/27/2024 [facility] DATE CREATED AUTHOR AUTHOR'S ORGANIZ ATION 04/15/2025 [facility] EPIC DATE CREATED AUTHOR AUTHOR'S ORGANIZ ATION 08/14/2025 [facility] Care Teams (unrecognized sec tion and content) Team Status: Active Member Role Status Dates Mane Lee MD Primary Care Provider Active Team Status: Inactive Member Role Status Dates Mane Lee MD Primary Care Provider Active S tart: December 10, 2023 End: December 10, 2023 DAILY BlancC Attending Provider Active Start: December 10, 2023 End: December 10, 2023 Pourer Relationship Specialty Start Date End Date Mane Lee MD [address] [place] [address] PCP - General Family Medicine 12/23/23 Pourer Relationship Specialty Start Date End Date Mane Lee MD [address] [place] [address] PCP - General Family Medicine 12/23/23 Pourer Relationship Specialty Start Date End Date Mane Lee MD [address] [place] [address] PCP - General Family Medicine 12/23/23 Mane Lee MD [address] [place] [address] PCP - [place] [employer] 01/09/24 Pourer Relationship Specialty Start Date End Date Mane Lee MD [address] [place] [address] PCP - General Family Medicine 12/23/23 Mane Lee MD [address] [place] [address] PCP - [place] [employer] 01/09/24 Pourer Relationship Specialty Start Date End Date Mane Lee MD [address] [place] [address] PCP - General Family Medicine 12/23/23 Mane Lee MD [address] [place] [address] PCP - [place] [employer] 01/09/24 Pourer Relationship Specialty Start Date End Date Mane Lee MD [address] [place] [address] PCP - General Family Medicine 12/23/23 Mane Lee MD [address] [place] [address] PCP - [place] [employer] 01/09/24 Pourer Relationship Specialty Start Date End Date Mane Lee MD [address] [place] [address] PCP - General Family Medicine 12/23/23 Mane Lee MD [address] [place] [address] PCP - [place] [employer] 01/09/24 Pourer Relationship Specialty Start Date End Date Mane Lee MD [address] [place] [address] PCP [facility] 12/23/23 Mane Lee MD [address] [place] [address] PCP - [place] [employer] 01/09/24 Pourer Relationship Specialty Start Date End Date Mane Lee MD [address] [place] [address] PCP [facility] 12/23/23 Mane Lee MD [address] [place] [address] PCP - [place] [employer] 01/09/24 Pourer Relationship Specialty Start Date End Date Mane Lee MD [address] [place] [address] PCP - General Family Medicine 12/23/23 Mane Lee MD [address] [place] [address] PCP - [place] [employer] 01/09/24 Pourer Relationship Specialty Start Date End Date Mane Lee MD [address] [place] [address] PCP - General Family Medicine 12/23/23 Mane Lee MD [address] [place] [address] PCP - [place] [employer] 01/09/24 Pourer Relationship Specialty Start Date End Date Mane Lee MD [address] [place] [address] PCP - General Family Medicine 12/23/23 Mane Lee MD [address] [place] [address] PCP - [place] [employer] 01/09/24 Pourer Relationship Specialty Start Date End Date Mane Lee MD [address] [place] [address] PCP - General Family Medicine 12/23/23 Mane Lee MD [address] [place] [address] PCP - [place] [employer] 01/09/24 Team Status: Inactive Member Role [...] BE BASED ON THE PRIMARY CLINICAL RECORDS. [facility] [employer] provides no warranty or guarantee of the accuracy or completeness of information in this document.
== END 2025-08-23 12:55 | disposition home or self-care (01) ==
LOC: MRI 12:54
PROVIDERS: PCP Family Medicine; Visit Provider Family Medicine
DX: M23.92 Unspecified internal derangement of left knee (principal); M17.12 Unilateral primary osteoarthritis, left knee; S83.282A Other tear of lateral meniscus, current injury, left knee, initial encounter; M71.22 Synovial cyst of popliteal space [Baker], left knee; M25.462 Effusion, left knee
CPT/HCPCS: 73721

== ENCOUNTER 2025-10-07 13:48 | Outpatient (OUT) | payer BC, SELFPAY ==
--- OUTSIDE RECORDS SUMMARY | 2025-09-27 14:00 | XMS_ITS | Encounter Summary ---
Author Organization [facility] Address [address] [place] [address] Care Team Providers Care Prosthetics Lab Technician Name Role Phone Mane Kearney MD Unavailable Mane Kearney MD Primary Care Provider [phone] Reason for Visit * ReasonCommentsPre-op Visit Encounter Details DateTypeDepartmentCare Team (Latest Contact Info)Xatmdfdamkx38/18/2025 2:00 PM ESTOffice Visit [facility] [address] [place] [address] Jonathan Peterson PA [address] [place] [address] Pre-op examination (Primary Dx); Chronic obstructive pulmonary disease, unspecified COPD type (HCC); Internal derangement of left knee Social History Tobacco UseTypesPacks/DayYears UsedDateSmoking Tobacco: Every DayCigarettes Smokeless Tobacco: Never Tobacco Cessation:Ready to Q uit: Not Asked; Counseling Given: Not Answered Humiliation, Afraid, Rape, and Kick questionnaireAnswerDate RecordedWithin the last year, have you been afraid of your partner or ex-partner?No11/26/2023Within the last year, have you been humiliated or emotionally abused in other ways by your partner or ex-partner?No11/26/2023Within the last year, have you been kicked, hit, slapped, or otherwise physically hurt by your partner or ex-partner?No11/26/2023Within the last year, have you been raped or forced to have any kind of sexual activity by your partner or ex-partner?No11/26/2023 Social Connection and Isolation PanelAnswerDate RecordedIn a typical week, how many times do you talk on the phone with family, friends, or neighbors?Once a week11/26/2023How often do you get together with friends or relatives?Once a week11/26/2023How often do you attend jainism or spiritism services?Never 4Do you belong to any clubs or organizations such as jainism groups, unions, fraFrench Girls or athletic groups, or school groups?No11/26/2023How often do you attend meetings of the clubs or organizations you belong to?Never11/26/2023 Are you , , , , never , or living with a partner?Ajtutyp9511/26/2023UDIT-CAnswerDate RecordedQ1: How often do you have a drink containing alcohol?Never11/26/2023Q2: How many drinks containing alcohol do you have on a typical day when you are drinking?Patient does not drink 11/26/2023Q3: How often do you have six or more drinks on one occasion?Never 11/26/2023Overall Financial Resource Strain (CARDIA)AnswerDate RecordedHow hard is it for you to pay for the very basics like food, housing, medical care, and heating?Not very hard11/26/2023Finmountain point medical center [place] of Occupational Health - Occupational Stress QuestionnaireAnswerDate RecordedDo you feel stress - tense, restless, nervous, or anxious, or unable to sleep at night because yourmind is troubled all the time - these days?Not at all11/26/2023Exercise Vital SignAnswer Date RecordedOn average, how many days per week do you engage in moderate to strenuous exercise (like a brisk walk)?0 days11/26/2023On average, how many minutes do you engage in exercise at this level?Patient xtndvhet52/17/2024Hunger Vital SignAnswerDate RecordedWithin the past 12 months, you worried that your food would run out before you got the money to buymore.Never true11/26/2023 Within the past 12 months, the food you bought just didn't last and you didn't have money to get more.Never true11/26/2023RAPARE - TransportationAnswerDate RecordedIn the past 12 months, has lack of transportation kept you from medical appointments or from getting medications?No11/26/2023In the past 12 months, has lack of transportation kept you from meetings, work, or from getting things needed for daily living?No11/26/2023Housing Stability Vital SignAnswerDate RecordedIn the last 12 months, was there a time when you were not able to pay the mortgage or rent on time?No11/26/2023Number of Places Lived in the Last Year Not on file11/26/2023In the last 12 months, was there a time when you did not have a steady place to sleep or slept in ashelter (including now)?No11/26/2023 CommentsUnknownSex and Gender InformationValueDate RecordedSex Assigned at BirthNot on fileLegal RcxDnsvbr81/15/2023 6:46 PM EDTGender IdentityNot on fileSexual OrientationNot on filedocumented as of this encounter Last Filed Vital Signs Vital SignReadingTime TakenCommentsBlood Pressure--Pulse--Temperature-- Respiratory Rate--Oxygen Saturation--Inhaled Oxygen Concentration--Dtgmaw266 kg (265 lb)09/27/2025 2:00 PM KVWOmuakl513 cm (5' 3 )09/27/2025 2:00 PM ESTBody Mass Index46.9409/27/2025 2:00 PM ESTdocumented in this encounter Progress Notes * ESTELA Redman - 09/27/2025 2:00 PM EST Images from the original note were not included. GENERAL HISTORY AND PHYSICAL: NAME: Jazz Juares : 1965 HISTORY OF PRESENT ILLNESS: Jazz Juares is an 59 y.o. @ female. Here for surgery instructions left knee arthroscopy October 20 @ [facility]. PAST MEDICAL HISTORY: Medical History[1] PAST SURGICAL HISTORY: Surgical History[2] SOCIAL HISTORY: Social History Occupational History Not on file Tobacco Use Smoking status: Every Day Current packs/day: 0.50 Types: Cigarettes Smokeless tobacco: Never Substance and Sexual Activity Alcohol use: Not on file Drug use: Never Sexual activity: Not on file ALLERGIES: Allergies[3] MEDICATIONS: Current Outpatient Medications Medication Instructions albuterol HFA 90 mcg/act inhaler 2 puffs, Inhalation, Every 6 hours PRN albuterol 2.5 mg, Nebulization, Every 6 hours PRN amLODIPine (NORVASC) 5 mg, Oral, Daily cyclobenzaprine (FLEXERIL) 10 mg, Oral, 3 times daily PRN DULoxetine (CYMBALTA) 60 mg, Oral, Daily furosemide (LASIX) 40 mg, Oral, Daily HYDROcodone-acetaminophen ([place]) 5-325 MG tablet 1 tablet, As needed losartan-hydroCHLOROthiazide (Hyzaar) 100-25 MG tablet 1 tablet, Oral, Daily Misc. Devices misc Dispense: Front Wheeled walker use 90 days. Ht: 265 Weight: 5'3 phentermine (ADIPEX-P) 37.5 mg, Oral, Daily before breakfast Umeclidinium-Vilanterol (Anoro Ellipta) 62.5-25 MCG/ACT aerosol powder 1 puff, Inhalation, Daily zonisamide (ZONEGRAN) 50 mg, Oral, Nightly REVIEW OF SYSTEMS: Review of Systems Constitutional: Negative for fatigue, fever and unexpected weight change. Eyes: Negative for redness and visual disturbance. Gastrointestinal: Negative for abdominal pain. Denies Indigestion Musculoskeletal: See note: Skin: Negative for color change and rash. Neurological: Negative for light-headedness and numbness. Vitals: Body mass index is 46.94 kg/m??. PHYSICAL EXAM: Physical Exam Constitutional: General: She is not in acute distress. Appearance: Normal appearance. HENT: Head: Normocephalic and atraumatic. Right Ear: External ear normal. Left Ear: External ear normal. Nose: Nose normal. No rhinorrhea. Mouth/Throat: Mouth: Mucous membranes are moist. Pharynx: No posterior oropharyngeal erythema. Eyes: Extraocular Movements: Extraocular movements intact. Conjunctiva/sclera: Conjunctivae normal. Cardiovascular: Rate and Rhythm: Normal rate and regular rhythm. Pulses: Normal pulses. Heart sounds: No murmur heard. Pulmonary: Effort: Pulmonary effort is normal. No respiratory distress. Breath sounds: Normal breath sounds. No wheezing or rhonchi. Abdominal: Palpations: Abdomen is soft. Tenderness: There is no abdominal tenderness. Musculoskeletal: Cervical back: Normal range of motion and neck supple. Lymphadenopathy: Cervical: No cervical adenopathy. Skin: General: Skin is warm and dry. Findings: No erythema or rash. Neurological: General: No focal deficit present. Mental Status: She is alert and oriented to person, place, and time. Psychiatric: Mood and Affect: Mood normal. Behavior: Behavior normal. Orders Placed This Encounter Procedures Basic metabolic panel Standing Status: Future Number of Occurrences: 1 Expected Date: 09/27/2025 Expiration Date: 09/27/2026 Print requisition?: No ECG 12 lead Standing Status: Future Number of Occurrences: 1 Expected Date: 09/27/2025 Expiration Date: 09/27/2026 ASSESSMENT: ICD-10-CM 1. Pre-op examination Z01.818 ECG 12 lead ECG 12 lead Basic metabolic panel Basic metabolic panel Misc. Devices misc CANCELED: Basic metabolic panel CANCELED: Basic metabolic panel CANCELED: Basic metabolic panel CANCELED: Basic metabolic panel 2. Chronic obstructive pulmonary disease, unspecified COPD type (HCC) J44.9 ECG 12 lead ECG 12 lead Basic metabolic panel Basic metabolic panel CANCELED: Basic metabolic panel CANCELED: Basic metabolic panel CANCELED: Basic metabolic panel CANCELED: Basic metabolic panel 3. Internal derangement of left knee M23.92 Misc. Devices misc PLAN: Discussed patient's need for a front wheel walker: The patient has mobility limitations that significantly impair their ability to participate in activities of daily living without the risk of fall. The patient would benefit from this walker to reasonably complete activities of daily living such asprepping and cooking meals, grocery shopping , getting too and from the bathroom in an acceptable timeframe given current limitations. To prevent risk of fall patient can not use crutches safely as an alternative. As the patient is considered a fall risk, the utilization of a front-wheeled walker would mitigate the risk for height morbidity and mortality secondary to the possibility of fall. After further discussion at bedside the patient is able to safely use a walker in the benefit of walker use would improve her functional mobility to resolve deficit discussed above in her diagnosis. This patient presents for preadmission testing for upcoming surgery. Complete history with medical,surgery, and current allergy and medication list obtained. Consent for surgery signed and witnessedafter verbal consent to perform surgery received. All questions answered and proposed surgery scheduled. SURGERY INSTRUCTIONS September LABS + EKG AT [facility] PRE CERT SENT WALKER TO [facility] [place] Follow up in about 5 weeks (around 11/02/2025) for Post-Op November 02 @ 10:00 with [facility] in [place]. [1] Past Medical History: Diagnosis Date Benign essential hypertension Bilateral leg edema COPD, moderate (HCC) DDD (degenerative disc disease), lumbar Degenerative lumbar spinal stenosis History of colon polyps History of endometrial ablation Obstructive sleep apnea, adult Osteopenia of neck of right femur Smoking Vitamin D deficiency [2] Past Surgical History: Procedure Laterality Date ENDOMETRIAL ABLATION [3] Allergies Allergen Reactions Ciprofloxacin documented in this encounter Plan of Treatment DateTypeDepartmentCare Team (Latest Contact Info)Lvycydtbvbg85/24/2025 10:00 AM ESTOffice Visit [facility] [place] [facility] [address] [place] [address] Jonathan Peterson PA [address] [place] [address] NameTypePriorityAssociated DiagnosesOrder ScheduleECG 12 leadECGRoutine Pre-op examination Chronic obstructive pulmonary disease, unspecified COPD type (HCC) Expected: 09/27/2025 (Approximate), Expires: 09/27/2026asic metabolic panelLab Routine Pre-op examination Chronic obstructive pulmonary disease, unspecified COPD type (HCC) Expected: 09/27/2025 (Approximate), Expires: 09/27/2026documented as of this encounter Visit Diagnoses Diagnosis Pre-op examination- Primary Chronic obstructive pulmonary disease, unspecified COPD type (HCC) Internal derangement of left knee documented in this encounter Care Teams Team MemberRelationshipSpecialtyStart DateEnd Date Mane Kearney MD [address] [place] [address] PCP - Rosalie 01/09/24 Mane Kearney MD [address] [place] [address] PCP - GeneralFamily Lnguzzzv66/20/25documented as of this encounter
--- NOTE | 2025-10-07 | ECG_ITS ---
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 Measurements Intervals [place] Rate: 85 P: 72 SC: 187 QRS: 89 QRSD: 106 T: 68 QT: 359 QTc: 429 Interpretive Statements SINUS RHYTHM INCOMPLETE RIGHT BUNDLE BRANCH BLOCK [90+ ms QRS DURATION, TERMINAL R IN V1/V2, 40+ ms S IN I/aVL/V4/V5/V6] Borderline ECG Compared to ECG 11/10/2022 13:49:07 Right-axis deviation no longer present Electronically Signed On 10-07-2025 18:29:28 EST by LAUREL SILVERIO M.D.
--- OUTSIDE RECORDS SUMMARY | 2025-10-07 13:51 | XMS_ITS | CCD ---
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 Name Role Phone JESUS, DR MANE Avina Primary Care Unavailable MORGAN ., DR VAMSHI Correa Consulting Unavailable JESUS, DR MANE Avina Admitting Unavailable JESUS, DR MANE Avina Attending Unavailable SUSY, DR JUAN DAVID Hunter Consulting Unavailable JESUS, DR MANE Avina Consulting Unavailable PETERSON ., INA Consulting Unavailable STRAWSER, DEL Consulting Unavailable CHOU, MALCOLM Consulting Unavailable JESUS, DR MANE Avina Admitting Unavailable JESUS, DR MANE Avina Attending Unavailable JESUS, DR MANE Avina Primary Care Unavailable HAMPTON, DR NIA Uriostegui Consulting Unavailable JESUS, DR MANE Avina Consulting Unavailable MD Mane Lee Primary Care Provider BERNICE Shipman Attending Provider Mane Lee MD Primary Care Provider [phone] Melva BACK, Corine Puentes Attending Unavailable Melva BACK, Andsidra Puentes Attending Unavailable Melva BACK, Corine Puentes Attending Unavailable Melva BACK, Corine Puentes Attending Unavailable Mane Lee MD Unavailable Mane Lee MD Primary Care Provider Mane Lee MD Attending Provider [phone] Mane Lee Attending Unavailable Mane Lee Primary Care Unavailable Mane Lee Admitting Unavailable Mane Lee MD Unavailable Mane Lee MD Primary Care Provider Mane Lee MD Primary Care Provider MANE LEE Attending Unavailable MANE LEE Attending Unavailable MANE LEE Attending Unavailable JR. RYAN, LAUREL Trinidad Attending MANE Villaseñor Referring Unavailable JR. RYAN, LAUREL Trinidad Referring Lisa browne Allergies Allergy ClassificationReported Allergen(s)Allergy TypeDate of OnsetReaction(s) Facility (1 source)CiprofloxacinDrug Fenahhn71-31-4526[facility] (20 sources)CiprofloxacinDrug Sexfbmb47-64-0057[facility] (1 source)CiprofloxacinDrug Jckpjhd51-80-5489[facility]uphamMet[facility] Medications Current Medications MedicationDrug Class(es)DatesSig (Normalized)Sig (Original)acetaminophen 325 mg / HYDROcodone bitartrate 5 mg oral tablet (2 sources)Opioid AgonistStart: 15-43-3034khej 1 tablet by mouth every six hours as needed for painHydrocodone-Acetaminophen 5-325 mg tablet Active 1 TAB PO Every 6 hours as needed for pain 28 7 August 15, 2025 Complies with drug [id number] 200 actuat albuterol 0.09 mg/actuat metered dose inhaler (20 sources)beta2-Adrenergic AgonistStart: 36-64-2119kvao 1 puff(s) by inhalation every four hours as needed for wheezingAlbuterol Sulfate 90 mcg/actuation HFA aerosol inhaler Active 2 PUFF INHALATION Every 4 hours as nee ded for shortness of breath or wheezing 8.5 July 22, 2025 10:46am Complies with drug therapyStart: 07-21-2025 End: 40-21-5845swhb 1 puff(s) by inhalation every six hours as neededAlbuterol Sulfate 90 mcg/actuation HFA aerosol inhaler Discontinued 2 PUFF INHALATION Every 6 hoursas needed July 21, 2025 12:00am July 22, 2025 10:49am Start: 62-19-9296avtzuqcsb (2.5 MG/3ML) 0.083% nebulizer solution Indications: Moderate COPD (chronic obstructive pulmonary disease) (HCC) Take 3 mL (2.5 mg) by nebulization every 6 (six) hours if needed for shortness of breath 75 mL 10/28/2023 ActiveStart: 10-28-2023 End: 97-43-2471iupv 2 puff(s) by inhalation every six hoursalbuterol HFA 90 mcg/act inhaler Indications: Chronic obstructive pulmonary disease, unspecified COPD type (HCC) Inhale 2 puffs every 6 (six) hours if needed for shortness of breath 18 g 3 07/01/2024ctiveamLODIPine 5 mg oral tablet (20 sources)Dihydropyridine Calcium Channel BlockerStart: 10-28-2023 End: 92-59-9161nfmb 1 tablet by mouth once dailyamLODIPine (Norvasc) 5 MG tablet Indications: Essential hypertension, benign Take 1 tablet (5 mg) by mouth Daily 90 tablet 3 08/04/2024 Activecefdinir 300 mg oral capsule (2 sources)Cephalosporin AntibacterialStart: 08-04-2024 End: 60-61-7605dbmx 1 capsule by mouth in the morningcefdinir (Omnicef) 300 MG capsule Indications: Acute bronchitis due to other specified organisms Take 1 capsule (300 mg) by mouth in the morning and 1 capsule (300 mg) before bedtime. Do all this for10 days. 20 capsule 08/04/2024 08/14/2024 Activecholecalciferol 0.05 mg oral capsule (20 sources)Vitamin DStart: 07-21-2025 End: 94-56-5589xqqe 1 capsule by mouth once dailyCholecalciferol (Vitamin D3) 50 mcg (2,000 unit) capsule Active 50 MCG PO Daily July 28, 2025 7:03am Complies with drug therapyStart: 10-28-2023 End: 16-86-5529cgck 1 tablet by mouth once dailycholecalciferol (Vitamin D-3) 50 MCG (2000 UT) tablet Indications: Vitamin D deficiency Take 1 tablet (50 mcg) by mouth Daily 90 tablet 3 08/04/2024 08/10/2025 Activecyclobenzaprine hydrochloride 10 mg oral tablet (20 sources)Muscle RelaxantStart: 04-28-2025 End: 20-84-8141bcrk 1 tablet by mouth three times daily as needed for muscle spasmscyclobenzaprine (Flexeril) 10 MG tablet Indications: Spinal stenosis, lumbar region, without neurogenic claudication TAKE 1 TABLET BY MOUTH THREE TIMES DAILY NEEDED FOR MUSCLE SPASMS 90 tablet 3 04/28/2025 ActiveStart: 56-74-1139nxpz 1 tablet by mouth three times daily as needed for muscle spasms cyclobenzaprine (Flexeril) 10 MG tablet Indications: Spinal stenosis, lumbar region, without neurogenic claudication Take 1 tablet (10 mg) by mouth 3 (three) times a day as needed for muscle spasms 90 tablet 3 03/31/2025 ActiveStart: 09-15-2023 End: 31-95-5375bozz 1 tablet by mouth three times daily as needed for muscle spasmscyclobenzaprine (Flexeril) 10 MG tablet Indications: Spinal stenosis, lumbar region, without neurogenic claudication Take 1 tablet (10 mg) by mouth 3 (three) times a day as needed for muscle spasms 90 tablet 3 08/04/2024 Active DULoxetine 60 mg delayed release oral capsule (20 sources)Serotonin and Norepinephrine Reuptake InhibitorStart: 10-28-2023 End: 09-13-8148rxpg 1 capsule by mouth once dailyDULoxetine (Cymbalta) [address] capsule Indications: Degeneration of lumbar intervertebral disc Take1 capsule (60 mg) by mouth Daily 90 capsule 3 08/04/2024 Activefurosemide 40 mg oral tablet (20 sources)Loop DiureticStart: 10-28-2023 End: 75-79-6252btyk 1 tablet by mouth once dailyfurosemide (Lasix) 40 MG tablet Indications: Lower extremity edema Take 1 tablet (40 mg) by mouth Daily 90 tablet 3 08/04/2024 ActivehydroCHLOROthiazide 25 mg / losartan potassium 100 mg oral tablet (20 sources)Thiazide Diuretic, Angiotensin 2 Receptor BlockerStart: 07-27-2024 End: 90-80-2671scsc 1 tablet by mouth once dailylosartan-hydroCHLOROthiazide (Hyzaar) 100-25 MG tablet Indications: Essential hypertension, benign Take 1 tablet by mouth Daily 90 tablet 3 07/27/2024 ActiveStart: 10-28-2023 End: 39-71-6328kdes 1 tablet by mouth in the morninglosartan-hydroCHLOROthiazide (Hyzaar) 100-25 MG tablet Indications: Essential hypertension, benign (CMS/HCC) Take 1 tablet by mouth in the morning. 90 tablet 3 10/28/2023 10/27/2024 Active phentermine hydrochloride 37.5 mg oral tablet (20 sources)Sympathomimetic Amine AnorecticStart: 01-10-2025 End: 98-95-6641uyad 45-49.9 tablets by mouth before mealtimephentermine (Adipex- P) 37.5 MG tablet Indications: Class 3 severe obesity due to excess calories wit h serious comorbidity and body mass index (BMI) of 45.0 to 49.9 in adult (CMS- HCC) Take 1 tablet (37.5 mg) by mouth in the morning. Take before meals. 30 tablet 05/27/2025 ActiveStart: 06-02-2024 End: 84-63-8147yaof 1 tablet by mouth before mealtimephentermine (Adipex-P) 37.5 MG tablet Indications: Morbid obesity due to excess calories (CMS/HCC) Take 1 tablet (37.5 mg) by mouth in the morning. Take before meals. 30 tablet 07/01/2024 08/04/2024 DiscontinuedStart: 11-26-2023 End: 46-25-1688pfuh 1 tablet by mouth in the morningphentermine (Adipex-P) 37.5 MG tablet Indications: Morbid obesity (CMS/HCC) Take 1 tablet (37.5 mg)by mouth in the morning. 30 tablet 0 11/26/2023 12/26/2023 Activepotassium chloride 20 meq extended release oral tablet (20 sources)Start: 10-28-2023 End: 35-64-7143mjpk 1 tablet by mouth once dailyPotassium Chloride 20 mEq tablet extended release Active 20 MEQ PO Daily July 21, 2025 12:00am Complies with drug therapypredniSONE 50 mg oral tablet (5 sources)Start: 49-83-9329sjwl 1 tablet by mouth once dailyPrednisone 50 mg tablet Active 50 MG PO Daily 6 July 22, 2025 12:00am Complies with drug therapyStart: 08-04-2024 End: 73-62-3949wzku 1 tablet by mouth once dailypredniSONE (Deltasone) 50 MG tablet Indications: Acute bronchitis due to other specified organisms Take 1 tablet (50 mg) by mouth Daily for 6 days 6 tablet 08/04/2024 08/10/2024 Active Umeclidinium-Vilanterol (20 sources)Anticholinergic, beta2-Adrenergic AgonistStart: 07-22-2025 Umeclidinium-Vilanterol 62.5-25 mcg/actuation blister with device Active 1 INH INHALATION Daily 60 July 22, 2025 10:48am Complies with drug therapy Start: 54-98-4785Spqyl: 07-21-2025 End: 92-00-9758Tjyvliijoefe-Vilanterol 62.5-25 mcg/actuation blister with device Discontinued 1 INH INHALATION Daily July 21, 2025 12:00am July 22, 2025 10:49amStart: 26-66-4638Sbyskyakcxtk-Vilanterol 62.5-25 mcg/actuation blister with device Active 1 INH INHALATION Daily July 21, 2025 12:00am Complies with drug therapyStart: 71-53-1416thqt 1 puff(s) by mouth once daily Anoro Ellipta 62.5-25 MCG/ACT aerosol powder Indications: Moderate COPD (chronic obstructive pulmonary disease) (CMS/HCC) INHALE 1 PUFF BY MOUTH DAILY 60 each 5 08/04/2024 ActiveStart: 07-08-2024 End: 49-52-9001gdho 1 puff(s) by mouth once dailyUmeclidinium-Vilanterol (Anoro Ellipta) 62.5-25 MCG/ACT aerosol powder Indications: Moderate COPD (chronic obstructive pulmonary disease) (HCC) INHALE 1 PUFF BY MOUTH ONCE DAILY 60 each 3 04/28/2025 ActiveStart: 10-28-2023 End: 20-95-1869kdvr 1 puff(s) by inhalation in the morningUmeclidinium- Vilanterol (Anoro Ellipta) 62.5-25 MCG/ACT aerosol powder Indications: Moderate COPD (chronic obstructive pulmonary disease) (CMS/HCC) Inhale 1 puff in the morning. 1 each 6 10/28/2023 11/08/2024 Activezonisamide 50 mg oral capsule (20 sources)Anti-epileptic AgentStart: 07-01-2024 End: 79-88-7659ifcc 1 capsule by mouth at bedtimezonisamide (Zonegran) 50 MG capsule Indications: Spinal stenosis, lumbar region, without neurogenic claudication Take 1 capsule (50 mg) by mouth at bedtime 90 capsule 3 08/04/2024 ActiveStart: 04-01-2024 End: 28-65-9557xxfkwdeucl (Zonegran) 100 MG capsule Take 50 mg by mouth at bedtime 04/01/2024 07/01/2024 Discontinued (Dose adjustment) Completed/Discontinued Medications MedicationDrug Class(es)DatesSig (Normalized)Sig (Original)celecoxib 200 mg oral capsule (20 sources)Nonsteroidal Anti-inflammatory DrugStart: 10-28-2023 End: 38-23-0954afmf 1 capsule by mouth twice dailyCelecoxib 200 mg capsule Discontinued 200 MG PO Twice daily July 21, 2025 12:00am July 22, 2025 10:49amtraMADol hydrochloride 50 mg oral tablet (3 sources)Opioid AgonistStart: 07-22-2025 End: 48-03-0251fezy 1 tablet by mouth every six hours as needed for painTramadol 50 mg tablet Discontinued 50 MG PO Every 6 hours as needed for pain 28 7 July 22, 2025 12:00am August 15, 2025 12:02pm Problems Active Problems Problem ClassificationProblemDateDocumented DateEpisodic/ChronicChronic obstructive pulmonary disease and bronchiectasis (20 sources)Chronic obstructive pulmonary disease, unspecified; 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: [Chronic obstructive pulmonary disease with (acute) lower respiratory infection] Onset: 83-45-9641BurxenwFmiobnqoz hypertension (20 sources)Essential (primary) hypertension; 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: [Benign essential hypertension]Onset: 226229-61-0874TaupwdwTtlcs disorders and dislocations; trauma-related (6 sources)Derangement of left knee; 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: [Unspecified internal derangement of left knee]48-95-0104FlssfojSmmergtigjs deficiencies (20 sources)Vitamin D deficiency; 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: [Vitamin D deficiency, unspecified]Onset: 233347-30-8426JzpqpxgRqjbdioskotawg (8 sources)Osteoarthritis of left knee joint; 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: [Unilateral primary osteoarthritis, left knee]89-30-0850GnewakzGwdtr aftercare (1 source)Other nursing home (current) drug therapy; 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: [OTH FIGURE MODEL CURRENT DRUG THERAPY]Onset: 55-51-5281NoeixavuCjyst aftercare (1 source)nursing home (current) use of opiate analgesic; 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: [SENIOR CARE CURRNT USE OPIATE ANALGES]Onset: 80-49-1080QsiffcppMbubv lower respiratory disease (2 sources)Shortness of breath; 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: [SHORTNESS OF BREATH]Onset: 07-29-7187LbrozgqcJnfoh non-traumatic joint disorders (2 sources)Pain in left knee; 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: [Pain in joint, lower leg]09-07-2025 EpisodicOther nutritional; endocrine; and metabolic disorders (12 sources)Morbid obesity; 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: [Morbid (severe) obesity due to excess calories]Onset: 825295-19-5357GzbvuhtZoina nutritional; endocrine; and metabolic disorders (20 sources)Severe obesity; 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: [Class 3 severe obesity due to excess calories with serious comorbidity and body mass index (BMI) of 45.0 to 49.9 in adult ([facility])]Onset: 187742-49-1987XvdhadyAzebi screening for suspected conditions (not mental disorders or infectious disease) (1 source)Encounter for screening mammogram for malignant neoplasm of breast; 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: [ENC SCR MAMMO MALIG NEOPLASM BREAST]Onset: 82-02-1014Vkudtclb Pneumonia (except that caused by tuberculosis or sexually transmitted disease) (1 source)Pneumonia, unspecified organism; 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: [PNEUMONIA UNSPECIFIED ORGANISM]Onset: 56-42-0465CovqqmgyBkzxcpod codes; unclassified (20 sources)Obstructive sleep apnea syndrome; 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: [Obstructive sleep apnea (adult) (pediatric)]Onset: 223265-26-2748EfgngsrJrdfzxuu codes; unclassified (4 sources)Obstructive sleep apnea of adult; 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: [Obstructive sleep apnea (adult) (pediatric)]76-78-2324NdusbwwQplkelhb codes; unclassified (1 source)Family history of malignant neoplasm of digestive organs; 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: [FAM HX MALIG NEOPLASM DIGESTIV ORGN]Onset: 06-68-2259Vpbayiec Residual codes; unclassified (1 source)Family history of malignant neoplasm of breast; 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: [FAMILY HX MALIG NEOPLASM OF BREAST]Onset: 51-07-3501AadckmevStqrjjct codes; unclassified (1 source)Family history of malignant neoplasm of trachea, bronchus and lung; 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: [FAM HX MALIG NEOPLSM TRACH BRON LNG]Onset: 68-74-5197Rovkjspl Residual codes; unclassified (1 source)Family history of stroke; 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: [FAMILY HISTORY OF STROKE] Onset: 51-30-6122GhqjckzoMxqmsulh codes; unclassified (1 source)Edema, unspecified; 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: [EDEMA UNSPECIFIED]Onset: 11-20-2022 EpisodicRespiratory failure; insufficiency; arrest (adult) (1 source)Acute respiratory failure with hypoxia; 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: [ACUTE RESPIRATORY FAIL W/HYPOXIA]Onset: 33-56-6924XuwzdaszBdhzospmgdz; intervertebral disc disorders; other back problems (6 sources)Degeneration of lumbar intervertebral disc; 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: [Other intervertebral disc degeneration, lumbar region]13-24-8375IelwdjmLkupmvque- related disorders (20 sources)Nicotine dependence, cigarettes, uncomplicated; 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: [Cigarette smoker ]Onset: 069498-98-1086OsamffeMkkzcxmochvx (1 source)CONTACT W/AND (SUSP) EXPOS COVID-19; 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: [CONTACT W/AND (SUSP) EXPOS COVID-19]Onset: 38-00-6198Jmjnqwuituei (1 source)M23.92 - Unspecified internal derangement of left knee,M17.12 - Unilateral primary osteoarthritis, left knee Past or Other Problems Problem ClassificationProblemDateDocumented DateEpisodic/ChronicAcute bronchitis (20 sources)Acute infective bronchitis; 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: [Acute bronchitis due to other specified organisms]Onset: 08-04-2024 Resolved: 255387-96-0842IbtxxgdxKydil and unspecified benign neoplasm (20 sources)History of polyp of colon; 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: [Personal history of colonic polyps]Onset: 244740-65-0118MgyshsocHaozp bone disease and musculoskeletal deformities (20 sources)Osteopenia; 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: [Other specified disorders of bone density and structure, right thigh]Onset: 748919-01-6820XyypaqwyLgmci injuries and conditions due to external causes (20 sources)Unspecified injury of other specified muscles, fascia and tendons at wrist and hand level, right hand, initial encounter; 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: [Elbow, forearm, and wrist injury]Onset: 423727-87-7232GegkhkjaRwfgszux codes; unclassified (20 sources)Edema of lower extremity; 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: [Localized edema]Onset: 688343-48-3466XikqsyahAuulajgkwya; intervertebral disc disorders; other back problems (20 sources)Degenerative lumbar spinal stenosis; 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: [Spinal stenosis, lumbar region without neurogenic claudication]Onset: Episodic Results Test NameValueInterpretationReference RangeFacilityXR Knee - left 1 or 2 Viewson [id number] Result: X-rays AP and lateral of left knee show mild degenerative changes with mild flattening of the articular surfaces to the medial joint line with decreased joint space height to the medial joint line. Lateral joint line appeared to be well preserved there was subchondral sclerosis noted at the medial joint line and patellofemoral joint. There is no evidence of fracture or dislocation. Bony structures visualized appeared to be adequately ossified. [facility] HealthcareRadiology Study observation (narrative)[facility] HospitalCT lung screeningon 48-70-5909TE lung screeningPROTESTANT HOSPITAL [place] [address] [place] [address] CT Scan Report Signed Patient: Lawrence Harrison MR#: [id number] : 1965 Acct:[id number] Age/Sex: 59 / F ADM Date: 08/08/25 Loc: CT Room: Type: [facility] Attending Dr: Mane Lee MD Copies [...] Jr., D.O. 08/08/2025 12:43 PM Dictation Location: [place] [address] Transcribed By: [facility] 08/08/25 1243 Dictated By: Owen Smith Jr, DO 08/08/25 1242 Signed By: 08/08/25 1243[facility] Physician GroupALL CBC WITH AUTO DIFFon 80-70-5179IHERBNIEL ABSOLUTE AUTO0.1NOMS HealthcareBasophils/100 WBC (Bld)0.7 % 0.2 - 2.0 %NOMS HealthcareEosinophils/100 WBC (Bld)4.2 %0.9 - 7.0 %NOMSaint Louis University Health Science CenterErythrocyte distribution width (RBC) [Ratio]12.8 %11.0 - 15.0 %NOMSaint Louis University Health Science CenterHematocrit (Bld) [Volume fraction]40.5 %36.0 - 48.0 %[facility] Hemoglobin (Bld) [Mass/Vol]13.3 g/dL12.0 - 16.0 g/dLNOPhelps HealthIMMATURE GRANULOCYTES ABS AUTO0.02NOMS HealthcareImmature granulocytes/100 WBC (Bld)0.2 % 0.0 - 0.5 %NOMSaint Louis University Health Science CenterLYMPHOCYTES ABSOLUTE AUTO1.9[facility] Lymphocytes/100 WBC (Bld)22.4 %20.5 - 60.0 %[facility] HospitalMCH (RBC) [Entitic mass]29.6 pg26.7 - 34.0 pgNOReynolds County General Memorial HospitalHC (RBC) [Mass/Vol]32.8 g/dL29.9 - 35.2 g/dLAlvin J. Siteman Cancer CenterV (RBC) [Entitic vol]90 fL81.0 - 99.0 fLNOPhelps HealthMONOCYTES ABSOLUTE AUTO0.6NOMS HealthcareMonocytes/100 WBC (Bld)7.4 % 1.7 - 12.0 %NOMS HealthcareNEUTROPHILS ABSOLUTE AUTO5.6NOPhelps Health Neutrophils/100 WBC (Bld)65.1 %43.0 - 75.0 %NOMS HealthcarePlatelet mean volume (Bld) [Entitic vol]9.6 fL9.5 - 13.5 fLNOPhelps HealthTB EO #0.4[facility] TBH STF366TPRY [facility] RBC4.5NOResearch Medical Center WBC8.6NOPhelps Health CLINISYNCBarton County Memorial HospitalMM TOMOSYNTHESIS SCREENING BIon 47-86-9818EqwMil[place] [address] Mammography Report Signed Patient: LAWRENCE HARRISON MR#: [id number] : 1965 Acct:[id number] Age/Sex: 58 / F ADM Date: 06/24/24 Loc: MAMMO Attending Dr: Mane Lee M.D. Ordering Physician: Mane Lee M.D. Results: Date of Service: 06/24/24 Follow Up: Procedure(s): MM tomosynthesis screening BI Accession Number(s): [id number] cc: Mane Lee M.D. Patient Name: LAWRENCE HARRISON MR#: [id number] : 1965 Exam Date: 06/24/2024 Ordering Doctor: DR Mane Lee . RADIOLOGY REPORT PROCEDURE: MM TOMOSYNTHESIS SCREENING [...] rectal cancer at age 73. LOCATION: [facility] BREAST COMPOSITION: There are scattered areas of [...] SHOULD BE BIOPSIED. Dictated by: Juan David Jain M.D. on 06/25/2024 at 12:29 Approved by: Juan David Jain M.D. on 06/25/2024 at 12:40 Dictated By: Juan David Jain M.D. Signed By: 06/25/24 1241 DD/ 1240 TD/TT: Shearer Helper:TBHRadiology, Radiologist, - 06/25/2024 [place] [address] Mammography Report Signed Patient: LAWRENCE HARRISON MR#: [id number] : 1965 Acct:[id number] Age/Sex: 58 / F ADM Date: 06/24/24 Loc: MAMMO Attending Dr: Mane Lee M.D. Ordering Physician: Mane Lee M.D. Results: Date of Service: 06/24/24 Follow Up: Procedure(s): MM tomosynthesis screening BI Accession Number(s): [id number] cc: Mane Lee M.D. Patient Name: LAWRENCE HARRISON MR#: [id number] : 1965 Exam Date: 06/24/2024 Ordering Doctor: DR Mane Lee . RADIOLOGY REPORT PROCEDURE: MM TOMOSYNTHESIS SCREENING [...] rectal cancer at age 73. LOCATION: [facility] BREAST COMPOSITION: There are scattered areas of [...] SHOULD BE BIOPSIED. Dictated by: Juan David Jain M.D. on 06/25/2024 at 12:29 Approved by: Juan David Jain M.D. on 06/25/2024 at 12:40 Dictated By: Juan David Jain M.D. Signed By: 06/25/24 1241 DD/ 1240 TD/TT: Shearer Helper: [facility] HospitalRadiology Study observation (narrative)[facility] TOMOSYNTHESIS SCREENING BIOrdered By: Radiologist Radiology on 00-88-1695IRKLBarton County Memorial Hospital Work Phone: HEMOGLOBINon 21-18-1690Iuiutycwbx (Bld) [Mass/Vol]14.6 g/lOScyunn08.0-16.0K[facility]tering HealthComment on above:Performed By: #### HGB #### [facility] [address] [place] [address] Dr. Evangelist Chicas MAMM SCREEN 3D MANJIT CADon 79-20-1750AT MAMM SCREEN 3D MANJIT CAD Patient: LAWRENCE HARRISON Exam Date: 01/29/2023 : 1965 Gender:F Ordering : DR MANE LEE . Admission #: [id number] Family : Order #: [id number] CLICK HERE TO VIEW EXAM RADIOLOGY REPORT [...] rectal cancer at age 73. LOCATION: [facility] BREAST COMPOSITION: Scattered areas fibroglandular [...] by: Nia Reagan MD on 01/29/2023 at 09:29[facility] AUTO DIFFon 86-68-6794LNCU #0.0 103/ulNormal0.0-0.1Kettering HealthComment on above:Performed By: #### BMP #### [facility] [address] [place] [address] Dr. Evangelist ChicasBasophils/100 WBC (Bld)0.1 %Critically low0.2-2.0Kettering HealthComment on above:Performed By: #### BMP #### [facility] [address] [place] [address] Dr. Evangelist He #0.0 103/ulNormal0.0-0.7The [facility] SystemComtrinity health [place] on above: Performed By: #### BMP #### [facility] [address] [place] [address] Dr. Evangelist Robertsosinophils/100 WBC (Bld)0.1 %Critically low0.9-7.0Kettering HealthComment on above:Performed By: #### BMP #### [facility] [address] [place] [address] Dr. Evangelist Robertsrythrocyte distribution width (RBC) [Ratio]13.1 %Ahhcra03.0-15.0 The [facility] SystemComment on above:Performed By: #### BMP #### [facility] [address] [place] [address] Dr. Evangelist ChicasHematocrit (Bld) [Volume fraction]41.4 %Wlswrr66.0-48.0The [facility] SystemComment on above:Performed By: #### BMP #### [facility] [address] [place] [address] Dr. Evangelist ChicasHemoglobin (Bld) [Mass/Vol]13.0 g/iTSftfiv44.0-16.0The [facility] SystemComment on above:Performed By: #### BMP #### [facility] [address] [place] [address] Dr. Evangelist Sage #0.03 10e3/ulNormal0.00-0.03The [facility] SystemComment on above:Performed By: #### BMP #### [facility] [address] [place] [address] Dr. Evangelist Sage %0.4 %Normal0.0-0.5The [facility] SystemComment on above: Performed By: #### BMP #### [facility] [address] [place] [address] Dr. Evangelist Hooks #0.4 103/ulCritically low1.2-3.8[facility] Comment on above:Performed By: #### BMP #### [facility] [address] [place] [address] Dr. Evangelist Johnsonhocytes/100 WBC (Bld)4.7 %Critically low20.5-60.0The [facility] SystemComment on above:Performed By: #### BMP #### [facility] [address] [place] [address] Dr. Evangelist CurielUAL DIFF REQNONormalThe [facility]zer Health SystemComment on above: Performed By: #### BMP #### [facility] [address] [place] [address] Dr. Evangelist Patterson (RBC) [Entitic mass]29.1 luYexhdb99.7-34.0The [facility] SystemComment on above:Performed By: #### BMP #### [facility] [address] [place] [address] Dr. Evangelist EdgeHC (RBC) [Mass/Vol]31.4 g/vJNggvwb94.9-35.2The [facility] SystemComment on above:Performed By: #### BMP #### [facility] [address] [place] [address] Dr. Evangelist EdgeV (RBC) [Entitic vol]92.8 gWGblipj71.0-99.0The [facility] SystemComment on above:Performed By: #### BMP #### [facility] [address] [place] [address] Dr. Evangelist Mckinley #0.1 103/ulCritically low0.3-0.8The [facility] SystemComment on above:Performed By: #### BMP #### [facility] [address] [place] [address] Dr. Evangelist Sanchezocytes/100 WBC (Bld)1.8 %Normal1.7-12.0[facility] Comment on above:Performed By: #### BMP #### [facility] [address] [place] [address] Dr. Evangelist Martínez #6.8 103/ulCritically high1.4-6.5The [facility] Comment on above:Performed By: #### BMP #### [facility] [address] [place] [address] Dr. Evangelist Wongutrophils/100 WBC (Bld)92.9 %Critically high43.0-75.0The [facility] SystemComment on above:Performed By: #### BMP #### [facility] [address] [place] [address] Dr. Evangelist gNolet mean volume (Bld) [Entitic vol]11.3 fLNormal9.5-13.5The [facility] SystemComment on above:Performed By: #### BMP #### [facility] [address] [place] [address] Dr. Evangelist LemonT109 103/ulCritically bwj702-063Tfl [facility] SystemComment on above:Performed By: #### BMP #### [facility] [address] [place] [address] Dr. Evangelist ChicasRBC4.46 106/ulNormal4.20-5.40The [facility] SystemComment on above:Performed By: #### BMP #### [facility] [address] [address] [address] Evangelist ChicasWBC7.4 103/ulNormal4.0-11.0The [facility] SystemComment on above: Performed By: #### BMP #### [facility] [address] [place] [address] Dr. Evangelist ChicasPROF CHEM 8 (BAS METB)on 19-11-0072Wbpcd gap [Moles/Vol]11.8 mmol/LNormalThe [facility] SystemComment on above:Performed By: #### BMP #### [facility] [address] [place] [address] Dr. Evangelist ChicasCalcium [Mass/Vol]9.3 mg/dLNormal8.5-10.1The [facility] Comment on above:Performed By: #### BMP #### [facility] [address] [place] [address] Dr. Evangelist ChicasChloride [Moles/Vol]99 mmol/ULkqoos16-557Whe [facility] Comment on above:Performed By: #### BMP #### [facility] [address] [place] [address] Dr. Evangelist ChicasCO2 [Moles/Vol]31.6 mmol/VQgqakt58.0-32.0The [facility] Comment on above:Performed By: #### BMP #### [facility] [address] [place] [address] Dr. Evangelist ChicasCreatinine [Mass/Vol]0.75 mg/dLNormal0.55-1.02The [facility] SystemComment on above:Performed By: #### BMP #### [facility] [address] [place] [address] Dr. Blanca ChangEGFR-AF ZAMBIAN>60Normal>=60The [facility] SystemComment on above:Performed By: #### BMP #### [facility] [address] [place] [address] Dr. Evangelist RobertsGFR-NON AF ZAMBIAN>60Normal>=60The [facility] SystemComment on above:Performed By: #### BMP #### [facility] [address] [address] [address] Evangelist ChicasGlucose [Mass/Vol]162 mg/dLCritically qutu02-037Cva [facility] SystemComment on above:Performed By: #### BMP #### [facility] [address] [address] [address] Evangelist ChicasPotassium [Moles/Vol]4.4 mmol/LNormal3.5-5.1The [facility] Comment on above:Performed By: #### BMP #### [facility] [address] [place] [address] Dr. Evangelist ChicasSodium [Moles/Vol]138 mmol/UDjhulv425-621Rms [facility] Comment on above:Performed By: #### BMP #### [facility] [address] [place] [address] Dr. Evangelist ChicasUrea nitrogen [Mass/Vol]32.0 mg/dLCritically high7.0-18.0The [facility] SystemComment on above:Performed By: #### BMP #### [facility] [address] [place] [address] Dr. Evangelist Yousif nitrogen/Creatinine [Mass ratio]42.7 mg/mgNormalThe [facility] SystemComment on above:Performed By: #### BMP #### [facility] [address] [place] [address] Dr. Evangelist JaimeC AUTO DIFFon [id number] #0.0 103/ulNormal0.0-0.1The [facility] SystemComment on above:Performed By: #### CBC #### [facility] [address] [place] [address] Dr. Evangelist ChicasBasophils/100 WBC (Bld)0.1 %Critically low0.2-2.0The [facility] SystemComment on above:Performed By: #### CBC #### [facility] [address] [place] [address] Dr. Evangelist He #0.0 103/ulNormal0.0-0.7The [facility] SystemComment on above: Performed By: #### CBC #### [facility] [address] [place] [address] Dr. Evangelist Robertsosinophils/100 WBC (Bld)0.0 %Critically low0.9-7.0The [facility] SystemComment on above:Performed By: #### CBC #### [facility] [address] [place] [address] Dr. Evangelist Robertsrythrocyte distribution width (RBC) [Ratio]12.9 %Oxqqyt12.0-15.0 The [facility] SystemComment on above:Performed By: #### CBC #### [facility] [address] [place] [address] Dr. Evangelist ChicasHematocrit (Bld) [Volume fraction]39.0 %Torwml18.0-48.0The [facility] SystemComment on above:Performed By: #### CBC #### [facility] [address] [place] [address] Dr. Evangelist ChicasHemoglobin (Bld) [Mass/Vol]12.3 g/qXYsojmm30.0-16.0The [facility] SystemComment on above:Performed By: #### CBC #### [facility] [address] [place] [address] Dr. Evangelist Sage #0.04 10e3/ulCritically high0.00-0.03The [facility] Comment on above:Performed By: #### CBC #### [facility] [address] [place] [address] Dr. Evangelist Sage %0.4 %Normal0.0-0.5The [facility] SystemComment on above: Performed By: #### CBC #### [facility] [address] [place] [address] Dr. Evangelist JohnsonH #0.5 103/ulCritically low1.2-3.8The [facility] Comment on above:Performed By: #### CBC #### [facility] [address] [place] [address] Dr. Evangelist Cherrymphocytes/100 WBC (Bld)4.5 %Critically low20.5-60.0The [facility] SystemComment on above:Performed By: #### CBC #### [facility] [address] [place] [address] Dr. Evangelist Tanner DIFF REQNONormalThe [facility] SystemComment on above: Performed By: #### CBC #### [facility] [address] [place] [address] Dr. Evangelist Edge (RBC) [Entitic mass]29.7 wnDtysaq67.7-34.0The [facility] SystemComment on above:Performed By: #### CBC #### [facility] [address] [place] [address] Dr. Evangelist Edge (RBC) [Mass/Vol]31.5 g/yLUrkbsj19.9-35.2The [facility] SystemComment on above:Performed By: #### CBC #### [facility] [address] [place] [address] Dr. Evangelist EdgeV (RBC) [Entitic vol]94.2 uUAijqpl10.0-99.0The [facility] SystemComment on above:Performed By: #### CBC #### [facility] [address] [place] [address] Dr. Evangelist Mckinley #0.2 103/ulCritically low0.3-0.8The [facility] SystemComment on above:Performed By: #### CBC #### [facility] [address] [place] [address] Dr. Evangelist Sanchezocytes/100 WBC (Bld)1.5 %Critically low1.7-12.0The [facility] SystemComment on above:Performed By: #### CBC #### [facility] [address] [place] [address] Dr. Evangelist Martínez #10.5 103/ulCritically high1.4-6.5The [facility] Comment on above:Performed By: #### CBC #### [facility] [address] [address] [address] Evangelist ChicasNeutrophils/100 WBC (Bld)93.5 %Critically high43.0-75.0The [facility] SystemComment on above:Performed By: #### CBC #### [facility] [address] [address] [address] Evangelist ChicasPlatelet mean volume (Bld) [Entitic vol]10.4 fLNormal9.5-13.5The [facility] SystemComment on above:Performed By: #### CBC #### [facility] [address] [address] [address] Evangelist ChicasPLT169 103/ceJoinfy815-337Ijh [facility] SystemComment on above: Performed By: #### CBC #### [facility] [address] [address] [address] Evangelist ChicasRBC4.14 106/ulCritically low4.20-5.40The [facility] SystemComment on above:Performed By: #### CBC #### [facility] [address] [address] [address] Evangelist ChicasWBC11.2 103/ulCritically high4.0-11.0The [facility] SystemComment on above:Performed By: #### CBC #### [facility] [address] [place] [address] Dr. Evangelist ChicasCULTBETHANIE SPUTUMon 38-88-0552IUZTBRR SPUTUMCulture Observations: NORMAL RESPIRATORY SHAINA.NormalThe [facility] SystemComment on above:Performed By: #### BMP #### [facility] [address] [address] [address] Evangelist ChicasPROF CHEM 8 (BAS METB)on 49-58-9123Korur gap [Moles/Vol]9.2 mmol/LNormalKettering HealthComment on above:Performed By: #### DDIM #### [facility] [address] [place] [address] Dr. Evangelist ChicasCalcium [Mass/Vol]9.1 mg/dLNormal8.5-10.1The [facility] Comment on above:Performed By: #### DDIM #### [facility] [address] [address] [address] Evangelist ChicasChloride [Moles/Vol]100 mmol/CAjbfex72-133Wcr [facility] Comment on above:Performed By: #### DDIM #### [facility] [address] [address] [address] Evangelist ChicasCO2 [Moles/Vol]33.8 mmol/LCritically high21.0-32.0The [facility] SystemComment on above:Performed By: #### DDIM #### [facility] [address] [place] [address] Dr. Evangelist ChicasCreatinine [Mass/Vol]0.85 mg/dLNormal0.55-1.02The [facility] SystemComment on above:Performed By: #### DDIM #### [facility] [address] [address] [address] Evangelist RobertsGFR-AF ZAMBIAN>60Normal>=60The [facility] SystemComment on above:Performed By: #### DDIM #### [facility] [address] [place] [address] Dr. Evangelist RobertsGFR-NON AF ZAMBIAN>60Normal>=60The [facility] SystemComment on above:Performed By: #### DDIM #### [facility] [address] [address] [address] Evangelist ChicasGlucose [Mass/Vol]151 mg/dLCritically vybb31-047Tfk [facility] SystemComment on above:Performed By: #### DDIM #### [facility] [address] [address] [address] Evangelist ChicasPotassium [Moles/Vol]4.0 mmol/LNormal3.5-5.1The [facility] Comment on above:Performed By: #### DDIM #### [facility] [address] [place] [address] Dr. Evangelist ChicasSodium [Moles/Vol]139 mmol/WJtuyoo092-768Ngm [facility] Comment on above:Performed By: #### DDIM #### [facility] [address] [place] [address] Dr. Evangelist Yousif nitrogen [Mass/Vol]29.0 mg/dLCritically high7.0-18.0The [facility] SystemComment on above:Performed By: #### DDIM #### [facility] [address] [place] [address] Dr. Evangelist Yousif nitrogen/Creatinine [Mass ratio]34.1 mg/mgNormalThe [facility] SystemComment on above:Performed By: #### DDIM #### [facility] [address] [place] [address] Dr. Evangelist Pike AUTO DIFFon [id number] #0.0 103/ulNormal0.0-0.1The [facility] SystemComment on above:Performed By: #### CBC #### [facility] [address] [place] [address] Dr. Evangelist ChicasBasophils/100 WBC (Bld)0.1 %Critically low0.2-2.0The [facility] SystemComment on above:Performed By: #### CBC #### [facility] [address] [place] [address] Dr. Evangelist He #0.0 103/ulNormal0.0-0.7The [facility] SystemComment on above: Performed By: #### CBC #### [facility] [address] [place] [address] Dr. Evangelist Robertsosinophils/100 WBC (Bld)0.0 %Critically low0.9-7.0The [facility] SystemComment on above:Performed By: #### CBC #### [facility] [address] [place] [address] Dr. Evangelist Robertsrythrocyte distribution width (RBC) [Ratio]12.8 %Rgkdum89.0-15.0 The [facility] SystemComment on above:Performed By: #### CBC #### [facility] [address] [address] [address] Evangelist ChicasHematocrit (Bld) [Volume fraction]41.5 %Ljzciq29.0-48.0The [facility] SystemComment on above:Performed By: #### CBC #### [facility] [address] [place] [address] Dr. Evangelist ChicasHemoglobin (Bld) [Mass/Vol]13.0 g/fUFurgzu67.0-16.0The [facility] SystemComment on above:Performed By: #### CBC #### [facility] [address] [place] [address] Dr. Evangelist ChicasIG #0.04 10e3/ulCritically high0.00-0.03The [facility] Comment on above:Performed By: #### CBC #### [facility] [address] [place] [address] Dr. Evangelist ChicasIG %0.3 %Normal0.0-0.5The [facility] SystemComment on above: Performed By: #### CBC #### [facility] [address] [place] [address] Dr. Evangelist Hooks #0.5 103/ulCritically low1.2-3.8The [facility] Comment on above:Performed By: #### CBC #### [facility] [address] [place] [address] Dr. Evangelist Cherrymphocytes/100 WBC (Bld)3.7 %Critically low20.5-60.0The [facility] SystemComment on above:Performed By: #### CBC #### [facility] [address] [place] [address] Dr. Evangelist ChicasMANUAL DIFF REQNONormalThe [facility] SystemComment on above: Performed By: #### CBC #### [facility] [address] [place] [address] Dr. Evangelist Patterson (RBC) [Entitic mass]29.5 vhNrywmr20.7-34.0The [facility] SystemComment on above:Performed By: #### CBC #### [facility] [address] [address] [address] Evangelist EdgeHC (RBC) [Mass/Vol]31.3 g/lOGqammh24.9-35.2The [facility] SystemComment on above:Performed By: #### CBC #### [facility] [address] [place] [address] Dr. Evangelist EdgeV (RBC) [Entitic vol]94.3 vQNezsls64.0-99.0The [facility] SystemComment on above:Performed By: #### CBC #### [facility] [address] [place] [address] Dr. Evangelist Mckinley #0.2 103/ulCritically low0.3-0.8The [facility] SystemComment on above:Performed By: #### CBC #### [facility] [address] [place] [address] Dr. Evangelist Sanchezocytes/100 WBC (Bld)1.3 %Critically low1.7-12.0The [facility] SystemComment on above:Performed By: #### CBC #### [facility] [address] [place] [address] Dr. Evangelist Martínez #12.4 103/ulCritically high1.4-6.5The [facility] Comment on above:Performed By: #### CBC #### [facility] [address] [place] [address] Dr. Evangelist Wongutrophils/100 WBC (Bld)94.6 %Critically high43.0-75.0The [facility] SystemComment on above:Performed By: #### CBC #### [facility] [address] [place] [address] Dr. Evangelist Ngolet mean volume (Bld) [Entitic vol]9.9 fLNormal9.5-13.5The [facility] SystemComment on above:Performed By: #### CBC #### [facility] [address] [place] [address] Dr. Evangelist ChicasPLT189 103/njXnelkr996-351Qhj [facility] SystemComment on above: Performed By: #### CBC #### [facility] [address] [address] [address] Blanca ChangRBC4.40 106/ulNormal4.20-5.40The [facility] SystemComtr[facility] [place] on above:Performed By: #### CBC #### [facility] [address] [address] [address] Blanca QohwmOEG51.1 103/ulCritically high4.0-11.0The [facility] SystemComment on above:Performed By: #### CBC #### [facility] [address] [address] [address] Blanca ChangECHOCARDIO M/2D COMPLETEon 59-88-5541QFAMROMKBL M/2D COMPLETE Patient: LAWRENCE HARRISON Exam Date: 11/12/2022 : 1965 Gender:F Ordering : DR MANE LEE . Admission #: [id number] Family : DR VAMSHI MORGAN . Order #: [id number] CLICK HERE TO VIEW EXAM ECHOCARDIOGRAM REPORT [...] by: Nayely Goncalves M.D. on 11/12/2022 at 13:56[facility] HospitalPR[facility]M [facility] (BAS METB)on 01-91-5516Dmboy gap [Moles/Vol]10.2 mmol/L NormalThe [facility] SystemComment on above:Performed By: #### BMP #### [facility] [address] [address] [address] Evangelist ChicasCalcium [Mass/Vol]9.2 mg/dLNormal8.5-10.1The [facility] Comment on above:Performed By: #### BMP #### [facility] [address] [address] [address] Evangelist ChicasChloride [Moles/Vol]99 mmol/PCkidvi43-149Gdl [facility] Comment on above:Performed By: #### BMP #### [facility] [address] [address] [address] Evangelist ChicasCO2 [Moles/Vol]31.5 mmol/MRrbjth66.0-32.0The [facility] Comment on above:Performed By: #### BMP #### [facility] [address] [address] [address] Evangelist ChicasCreatinine [Mass/Vol]0.87 mg/dLNormal0.55-1.02The [facility] SystemComment on above:Performed By: #### BMP #### [facility] [address] [address] [address] Evangelist RobertsGFR-AF ZAMBIAN>60Normal>=60The [facility] SystemComment on above:Performed By: #### BMP #### [facility] [address] [address] [address] Evangelist RobertsGFR-NON AF ZAMBIAN>60Normal>=60The [facility] SystemComment on above:Performed By: #### BMP #### [facility] [address] [address] [address] Evangelist ChicasGlucose [Mass/Vol]168 mg/dLCritically hcsr00-002Afz [facility] SystemComment on above:Performed By: #### BMP #### [facility] [address] [place] [address] Dr. Evangelist ChicasPotassium [Moles/Vol]3.7 mmol/LNormal3.5-5.1[facility] Comment on above:Performed By: #### BMP #### [facility] [address] [place] [address] Dr. Evangelist Sorianodium [Moles/Vol]137 mmol/ZBxnlme989-810Bjb [facility] Comment on above:Performed By: #### BMP #### [facility] [address] [place] [address] Dr. Evangelist ChicasUrea nitrogen [Mass/Vol]28.0 mg/dLCritically high7.0-18.0The [facility] SystemComment on above:Performed By: #### BMP #### [facility] [address] [place] [address] Dr. Evangelist Yousif nitrogen/Creatinine [Mass ratio]32.2 mg/mgNormalThSelect Medical Specialty Hospital - AkronComment on above:Performed By: #### BMP #### [facility] [address] [place] [address] Dr. Evangelist Pike AUTO DIFFon 25-40-6703TDLC #0.0 103/ulNormal0.0-0.1The [facility] SystemComment on above:Performed By: #### CBC #### [facility] [address] [place] [address] Dr. Evangelist ChicasBaaprilphils/100 WBC (Bld)0.2 %Normal0.2-2.0[facility] Comment on above:Performed By: #### CBC #### [facility] [address] [place] [address] Dr. Evangelist He #0.0 103/ulNormal0.0-0.7The [facility] SystemComment on above: Performed By: #### CBC #### [facility] [address] [address] [address] Evangelist Robertsosinophils/100 WBC (Bld)0.0 %Critically low0.9-7.0The [facility] SystemComment on above:Performed By: #### CBC #### [facility] [address] [place] [address] Dr. Evangelist Robertsrythrocyte distribution width (RBC) [Ratio]12.7 %Koqvdm01.0-15.0 The [facility] SystemComment on above:Performed By: #### CBC #### [facility] [address] [place] [address] Dr. Evangelist ChicasHematocrit (Bld) [Volume fraction]41.7 %Ghcyxc38.0-48.0The [facility] SystemComment on above:Performed By: #### CBC #### [facility] [address] [place] [address] Dr. Evangelist ChicasHemoglobin (Bld) [Mass/Vol]13.0 g/eLEeygft40.0-16.0The [facility] SystemComment on above:Performed By: #### CBC #### [facility] [address] [place] [address] Dr. Evangelist ChicasIG #0.03 10e3/ulNormal0.00-0.03The [facility] SystemComment on above:Performed By: #### CBC #### [facility] [address] [place] [address] Dr. Evangelist ChicasIG %0.5 %Normal0.0-0.5The [facility] SystemComment on above: Performed By: #### CBC #### [facility] [address] [place] [address] Dr. Evangelist CherryMPH #0.4 103/ulCritically low1.2-3.8The [facility] Comment on above:Performed By: #### CBC #### [facility] [address] [place] [address] Dr. Evangelist Cherrymphocytes/100 WBC (Bld)5.8 %Critically low20.5-60.0The [facility] SystemComment on above:Performed By: #### CBC #### [facility] [address] [place] [address] Dr. Evangelist Tanner DIFF REQNONormalThe [facility] SystemComment on above: Performed By: #### CBC #### [facility] [address] [place] [address] Dr. Evangelist Edge (RBC) [Entitic mass]29.3 ayKuonsq46.7-34.0The [facility] SystemComment on above:Performed By: #### CBC #### [facility] [address] [place] [address] Dr. Evangelist Edge (RBC) [Mass/Vol]31.2 g/qPOuwidd88.9-35.2The [facility] SystemComment on above:Performed By: #### CBC #### [facility] [address] [place] [address] Dr. Evangelist Edge (RBC) [Entitic vol]93.9 xTEnrthk40.0-99.0The [facility] SystemComment on above:Performed By: #### CBC #### [facility] [address] [place] [address] Dr. Evangelist Mckinley #0.0 103/ulCritically low0.3-0.8The [facility] SystemComtr[facility] health [place] on above:Performed By: #### CBC #### [facility] [address] [place] [address] Dr. Evangelist Sanchezocytes/100 WBC (Bld)0.6 %Critically low1.7-12.0The [facility] SystemComment on above:Performed By: #### CBC #### [facility] [address] [place] [address] Dr. Evangelist Martínez #6.0 103/ulNormal1.4-6.5The [facility] on above:Performed By: #### CBC #### [facility] [address] [place] [address] Dr. Evangelist Wongutrophils/100 WBC (Bld)92.9 %Critically high43.0-75.0The [facility] SystemComment on above:Performed By: #### CBC #### [facility] [address] [address] [address] Evangelist ChicasPlatelet mean volume (Bld) [Entitic vol]10.8 fLNormal9.5-13.5The [facility] SystemComment on above:Performed By: #### CBC #### [facility] [address] [address] [address] Evangelist ChicasPLT141 103/ulCritically hem514-969Viw [facility] SystemComment on above:Performed By: #### CBC #### [facility] [address] [place] [address] Dr. Evangelist ChicasRBC4.44 106/ulNormal4.20-5.40The [facility] SystemComment on above:Performed By: #### CBC #### [facility] [address] [place] [address] Dr. Evangelist ChicasWBC6.4 103/ulNormal4.0-11.0The [facility] SystemComment on above: Performed By: #### CBC #### [facility] [address] [place] [address] Dr. Evangelist ChicasPROF CHEM 8 (BAS METB)on 99-09-8813Vunfs gap [Moles/Vol]7.5 mmol/LNormalThe [facility] SystemComment on above:Performed By: #### BMP #### [facility] [address] [place] [address] Dr. Evangelist ChicasCalcium [Mass/Vol]8.9 mg/dLNormal8.5-10.1The [facility] Comment on above:Performed By: #### BMP #### [facility] [address] [place] [address] Dr. Evangelist ChicasChloride [Moles/Vol]100 mmol/KVkzenx09-773Msi [facility] Comment on above:Performed By: #### BMP #### [facility] [address] [place] [address] Dr. Evangelist ChicasCO2 [Moles/Vol]33.9 mmol/LCritically high21.0-32.0The [facility] SystemComment on above:Performed By: #### BMP #### [facility] [address] [address] [address] Evangelist ChicasCreatinine [Mass/Vol]0.65 mg/dLNormal0.55-1.02The [facility] SystemComment on above:Performed By: #### BMP #### [facility] [address] [address] [address] Evangelist RobertsGFR-AF ZAMBIAN>60Normal>=60The [facility] SystemComment on above:Performed By: #### BMP #### [facility] [address] [address] [address] Evangelist RobertsGFR-NON AF ZAMBIAN>60Normal>=60The [facility] SystemComment on above:Performed By: #### BMP #### [facility] [address] [place] [address] Dr. Evangelist ChicasGlucose [Mass/Vol]152 mg/dLCritically nnax48-222Thi [facility] SystemComment on above:Performed By: #### BMP #### [facility] [address] [address] [address] Evangelist ChicasPotassium [Moles/Vol]4.4 mmol/LNormal3.5-5.1The [facility] Comment on above:Performed By: #### BMP #### [facility] [address] [address] [address] Evangelist ChicasSodium [Moles/Vol]137 mmol/HJalyzp039-921Oyd [facility] Comment on above:Performed By: #### BMP #### [facility] [address] [address] [address] Evangelist ChicasUrea nitrogen [Mass/Vol]16.0 mg/dLNormal7.0-18.0The [facility] SystemComment on above:Performed By: #### BMP #### [facility] [address] [address] [address] Evangelist ChicasUrea nitrogen/Creatinine [Mass ratio]24.6 mg/mgNormalThe [facility] SystemComment on above:Performed By: #### BMP #### [facility] [address] [place] [address] Dr. Evangelist Mendez 94-16-0767Ncqafsouwlt peptide B (Bld) [Mass/Vol]330.0 pg/mL Normal<=900.0The [facility] SystemComment on above:Performed By: #### BMP #### [facility] [address] [place] [address] Dr. Evangelist Pop LIS ADMITon 41-81-4786TT [Catalytic activity/Vol]40 U/L Libknz88-267Eko [facility] SystemComment on above:Performed By: #### DDIM #### [facility] [address] [place] [address] Dr. Evangelist Nunez.MB [Mass/Vol]1.06 ng/mLNormal<=3.60The [facility] Comment on above:Performed By: #### DDIM #### [facility] [address] [place] [address] Dr. Evangelist ChicasHSTROP21.6 pg/mLNormal4.0-51.3The [facility] SystemComment on above:Result Comment: CUT-OFF POINTS HAVE BEEN ESTABLISHED BASED ON THE FOURTH UNIVERSAL DEFINITIONS OF MYOCARDIAL INFARCTION. THE UPPER REFERENCE LIMIT (URL) OF TROPONIN, DEFINED THE 99TH PERCENTILE OF cTnI DISTRIBUTION IN A REFERENCE POPULATION, HAS BEEN CONFIRMED THE DECISION THRESHOLD FOR ME DIAGNOSIS.Performed By: #### DDIM #### [facility] [address] [place] [address] Dr. Evangelist EliO41 ng/mLNormal9-82The [facility] SystemComment on above: Performed By: #### DDIM #### [facility] [address] [place] [address] Dr. Evangelist Pike AUTO DIFFon 64-14-7956AZTW #0.1 103/ulNormal0.0-0.1The [facility] SystemComment on above:Performed By: #### BMP #### [facility] [address] [place] [address] Dr. Evangelist ChicasBasophils/100 WBC (Bld)0.7 %Normal0.2-2.0The [facility] Comment on above:Performed By: #### BMP #### [facility] [address] [place] [address] Dr. Evangelist He #0.1 103/ulNormal0.0-0.7The [facility] SystemComment on above: Performed By: #### BMP #### [facility] [address] [place] [address] Dr. Evangelist Robertsosinophils/100 WBC (Bld)1.1 %Normal0.9-7.0The [facility] Comment on above:Performed By: #### BMP #### [facility] [address] [place] [address] Dr. Evangelist Robertsrythrocyte distribution width (RBC) [Ratio]12.8 %Xecabn27.0-15.0 The [facility] SystemComment on above:Performed By: #### BMP #### [facility] [address] [place] [address] Dr. Evangelist ChicasHematocrit (Bld) [Volume fraction]41.1 %Wwlhym47.0-48.0The [facility] SystemComment on above:Performed By: #### BMP #### [facility] [address] [place] [address] Dr. Evangelist ChicasHemoglobin (Bld) [Mass/Vol]13.2 g/cXJwqbkt58.0-16.0The [facility] SystemComment on above:Performed By: #### BMP #### [facility] [address] [place] [address] Dr. Evangelist Sage #0.02 10e3/ulNormal0.00-0.03The [facility] SystemComment on above:Performed By: #### BMP #### [facility] [address] [place] [address] Dr. Evangelist Sage %0.3 %Normal0.0-0.5The [facility] SystemComment on above: Performed By: #### BMP #### [facility] [address] [place] [address] Dr. Evangelist Hooks #0.7 103/ulCritically low1.2-3.8The [facility] Comment on above:Performed By: #### BMP #### [facility] [address] [place] [address] Dr. Evangelist Johnsonhocytes/100 WBC (Bld)9.5 %Critically low20.5-60.0The [facility] SystemComment on above:Performed By: #### BMP #### [facility] [address] [place] [address] Dr. Evangelist Tanner DIFF REQNONormalThe [facility] SystemComment on above: Performed By: #### BMP #### [facility] [address] [place] [address] Dr. Evangelist Edge (RBC) [Entitic mass]29.6 gnJdznxk17.7-34.0The [facility] SystemComment on above:Performed By: #### BMP #### [facility] [address] [place] [address] Dr. Evangelist Edge (RBC) [Mass/Vol]32.1 g/oNNnmvsb00.9-35.2The [facility] SystemComment on above:Performed By: #### BMP #### [facility] [address] [place] [address] Dr. Evangelist Edge (RBC) [Entitic vol]92.2 gAUkkbmw08.0-99.0The [facility] SystemComment on above:Performed By: #### BMP #### [facility] [address] [place] [address] Dr. Evangelist Mckinley #0.6 103/ulNormal0.3-0.8ThSelect Medical Specialty Hospital - AkronComment on above:Performed By: #### BMP #### [facility] [address] [place] [address] Dr. Evangelist Sanchezocytes/100 WBC (Bld)8.1 %Normal1.7-12.0[facility] Comment on above:Performed By: #### BMP #### [facility] [address] [place], [place] [id number] Dr. Evangelist WongUT #6.1 103/ulNormal1.4-6.5The [facility] SystemComment on above:Performed By: #### BMP #### [facility] [address] [place] [address] Dr. Evangelist Wongutrophils/100 WBC (Bld)80.3 %Critically high43.0-75.0The [facility] SystemComment on above:Performed By: #### BMP #### [facility] [address] [place] [address] Dr. Evangelist ChicasPlatelet mean volume (Bld) [Entitic vol]9.8 fLNormal9.5-13.5The [facility] SystemComment on above:Performed By: #### BMP #### [facility] [address] [place] [address] Dr. Evangelist ChicasPLT180 103/atMbthlq239-841Deb [facility] SystemComment on above: Performed By: #### BMP #### [facility] [address] [place] [address] Dr. Evangelist ChicasRBC4.46 106/ulNormal4.20-5.40The [facility] SystemComment on above:Performed By: #### BMP #### [facility] [address] [place] [address] Dr. Evangelist ChicasWBC7.6 103/ulNormal4.0-11.0The [facility] SystemComment on above: Performed By: #### BMP #### [facility] [address] [place] [address] Dr. Evangelist Palacios CHEST WO W CONon 13-53-5209SRZ CHEST WO W CONEXAMINATION:CTA CHEST WO W CON INDICATION:SHORTNESS OF BREATH, worsening [...] 1. No evidence of pulmonary embolus. 2. Centrilobular/groundglass nodular airspace disease in right lower lobe concerning for an infectious or inflammatory process. Electronically authenticated by: DEL ENRIQUE Date: 2022-11-10 17:30NoUniversity Hospitals Health SystemCovid-19 PCR (CVDTBH)on 23-15-1420RABE-CoV-2 (COVID-19) RNA SHENG+probe Ql (Unsp spec)Not detectedNormalNOT DETECTEDThe [facility] Comment on above:Result Comment: When diagnostic testing is negative, the [...] for this test is supported by the Emt I/85 of Health and Human Service's declaration that circumstances exist to justify the emergency use of in vitro diagnostics for the detection and/or diagnosis of the virus that causes COVID-19. This EUA will remain in effect for the duration of the COVID-19 declaration justifying emergency of IVDs, unless it is terminated or revoked by the FDA (after which the test may no longer be used).Performed By: #### BMP #### [facility] [address] [place] [address] Dr. Evangelist Lee 99-89-7784O-DIMER0.63 mg/L FEUCritically high<=0.59[facility] on above:Performed By: #### DDIM #### [facility] [address] [place] [address] Dr. Evangelist Lees-DIMER COMMENTSE [facility] on above:Result Comment: Increases in D-Dimer concentration observed with thromboembolic events [...] stress, and generalized hospitalization. Performed By: #### DDIM #### [facility] [address] [place] [address] Dr. Evangelist Alas URINE PROFILEon 14-58-3297Ikhcgmxod Ql (U)NegativeNormal NEGATIVEKettering HealthComtrinity health [place] on above:Performed By: #### NESHA, ERUR #### [facility] [address] [place] [address] Dr. Evangelist ChicasClarity (U)CLEARNormalCLEAROhioHealth Dublin Methodist Hospital on above: Performed By: #### NESHA, ERUR #### [facility] [address] [place] [address] Dr. Evangelist Delgadillo (U)LT. YELLOWNormalYELLOWKettering HealthComtrinity health [facility] on above:Performed By: #### NESHA, ERUR #### [facility] [address] [place] [address] Dr. Evangelist CrumpPIPPA micrscopic examination will be performed if indicated. NormalKettering HealthComtrinity health [facility]onia on above:Performed By: #### NESHA, ERUR #### [facility] [address] [place] [address] Dr. Evangelist ChicasGlucose Ql (U)NegativeNormalNEGATIVEKettering HealthComtrinity health [place] on above:Performed By: #### NESHA, ERUR #### [facility] [address] [address] [address] Evangelist ChicasHemoglobin Ql (U)TRACE-INTACTAbnormalNEGATIVEThe [facility] SystemComment on above:Performed By: #### NESHA ERUR #### [facility] [address] [address] [address] Evangelist Shethones Ql (U)NegativeNormalNEGATIVEThe [facility] HospitalComment on above:Performed By: #### NESHA ERUR #### [facility] [address] [address] [address] Evangelist ChicasLEUKOCYTESNegativeNormalNEGATIVEThe [facility] SystemComment on above:Performed By: #### NESHA ERUR #### [facility] [address] [place] [address] Dr. Evangelist Nietotrite Ql (U)NegativeNormalNEGATIVEThe [facility] SystemComment on above:Performed By: #### NESHA ERUR #### [facility] [address] [place] [address] Dr. Evangelist ChicaspH (U)6.0 [pH]Normal5-9The [facility] SystemComment on above: Performed By: #### NESHA ERUR #### [facility] [address] [place] [address] Dr. Evangelist Villanueva GRAVITY1.587Nfjybl3.005-<=1.025The [facility] SystemComment on above:Performed By: #### NESHA ERUR #### [facility] [address] [place] [address] Dr. Evangelist Garcia PROTEINNegativeNormalNEGATIVE/ TRACEThe [facility] on above:Performed By: #### NESHA ERUR #### [facility] [address] [address] [address] Evangelist Mittal MICRO INDINDICATEDNoalThe [facility] SystemComment on above: Performed By: #### NESHA ERUR #### [facility] [address] [address] [address] Evangelist Colin Qn (U)0.2 {Amalia'U}/dLNormal0.2 - 1.0The [facility] Hospitalment on above:Performed By: #### LUIS E JEFFRIES #### [facility] [address] [place] [address] Dr. Evangelist Avina AND B AGon 70-15-7552AWJKJHQYDZDXDTrinity Health System East CampusComment on above:Result Comment: Negative for Flu A protein angiten. Infection due to Flu A cannot be ruled out. FluA angiten in the sample may be below the detection limit of the test.Performed By: #### DDIM #### [facility] [address] [place] [address] Dr. Evangelist CervantesUBNEGHolzer Hospital on above: Result Comment: Negative for Flu B protein antigen. Infection due to Flu B cannot be ruled out. FluB antigen in the sample may be below the detection limit of the test.Performed By: #### DDIM #### [facility] [address] [place] [address] Dr. Evangelist Avina AGNegativeNormalNEGATIVE SEE COMMENTThe [facility] on above:Performed By: #### DDIM #### [facility] [address] [place] [address] Dr. Evangelist Sellers AGNegativeNormalNEGATIVE SEE COMMENTThe [facility] on above:Performed By: #### DDIM #### [facility] [address] [place] [address] Dr. Evangelist ChicasPROF 14(COMP METB)on 00-83-4591Flnysqf [Mass/Vol]3.1 g/dL Critically low3.4-5.0The [facility] on above:Performed By: #### BMP #### [facility] [address] [place] [address] Dr. Evangelist ChicasAlbumin/Globulin [Mass ratio]0.7 {ratio}NormalThe [facility] on above:Performed By: #### BMP #### [facility] [address] [address] [address] Evangelist VelazquezP [Catalytic activity/Vol]108 U/AWznohu88-564Ufo [facility] SystemComment on above:Performed By: #### BMP #### [facility] [address] [address] [address] Evangelist VelazquezT [Catalytic activity/Vol]20 U/LUwvxxt31-71Mfi [facility] SystemComment on above:Performed By: #### BMP #### [facility] [address] [address] [address] Evangelist Soto gap [Moles/Vol]6.0 mmol/LNormalThe [facility] SystemComment on above:Performed By: #### BMP #### [facility] [address] [place] [address] Dr. Evangelist ChicasAST [Catalytic activity/Vol]16 U/JKlswvg78-73Tbw [facility] SystemComment on above:Performed By: #### BMP #### [facility] [address] [place] [address] Dr. Evangelist ChicasBilirubin [Mass/Vol]0.6 mg/dLNormal0.2-1.0The [facility] Comment on above:Performed By: #### BMP #### [facility] [address] [place] [address] Dr. Evangelist ChicasCalcium [Mass/Vol]9.1 mg/dLNormal8.5-10.1The [facility] Comment on above:Performed By: #### BMP #### [facility] [address] [place] [address] Dr. Evangelist ChicasChloride [Moles/Vol]97 mmol/LCritically qmq78-798Bic [facility] SystemComtr[facility] health [facility] on above:Performed By: #### BMP #### [facility] [address] [place] [address] Dr. Evangelist ChicasCO2 [Moles/Vol]36.9 mmol/LCritically high21.0-32.0The [facility] SystemComment on above:Performed By: #### BMP #### [facility] [address] [address] [address] Evangelist ChicasCreatinine [Mass/Vol]0.71 mg/dLNormal0.55-1.02The [facility] SystemComment on above:Performed By: #### BMP #### [facility] [address] [address] [address] Blanca ChangEGFR-AF ZAMBIAN>60Normal>=60The [facility] SystemComment on above:Performed By: #### BMP #### [facility] [address] [address] [address] Evangelist RobertsGFR-NON AF ZAMBIAN>60Normal>=60The [facility] SystemComment on above:Performed By: #### BMP #### [facility] [address] [place] [address] Dr. Evangelist ChicasGlobulin (S) [Mass/Vol]4.4 g/dLNormalThe [facility] SystemComment on above:Performed By: #### BMP #### [facility] [address] [place] [address] Dr. Evangelist ChicasGlucose [Mass/Vol]124 mg/dLCritically wxml64-546Fhh [facility] SystemComment on above:Performed By: #### BMP #### [facility] [address] [place] [address] Dr. Evangelist ChicasPotassium [Moles/Vol]3.9 mmol/LNormal3.5-5.1The [facility] Comment on above:Performed By: #### BMP #### [facility] [address] [place] [address] Dr. Evangelist ChicasProtein [Mass/Vol]7.5 g/dLNormal6.4-8.2The [facility] Comment on above:Performed By: #### BMP #### [facility] [address] [place] [address] Dr. Evangelist ChicasSodium [Moles/Vol]136 mmol/RDeiwef194-698Xrc [facility] Comment on above:Performed By: #### BMP #### [facility] [address] [place] [address] Dr. Evangelist Yousif nitrogen [Mass/Vol]17.0 mg/dLNormal7.0-18.0The [facility] SystemComment on above:Performed By: #### BMP #### [facility] [address] [place] [address] Dr. Evangelist Yousif nitrogen/Creatinine [Mass ratio]23.9 mg/mgNoUniversity Hospitals Health SystemComment on above:Performed By: #### BMP #### [facility] [address] [place] [address] Dr. Evangelist Acuña MICROSCOPIC ONLYon 54-88-7303XZHVGROLLDPN SEENNormalNONE SEENKettering HealthComtrinity health [place] on above:Performed By: #### NESHA, ERUR #### [facility] [address] [place] [address] Dr. Evangelist Dubois identified Cx Nom (U)NOT INDICATEDNoUniversity Hospitals Health SystemComment on above:Performed By: #### NESHA, ERUR #### [facility] [address] [place] [address] Dr. Evangelist Gabriel SEENNormalNONE SEENOhioHealth Dublin [facility] Hospital on above:Performed By: #### NEHSA, ERUR #### [facility] [address] [place] [address] Dr. Evangelist Yoonystals LM Nom (Urine sed)NONE SEENNormalNONE SEENThe [facility] SystemComtrinity health [facility] on above:Performed By: #### NESHA, ERUR #### [facility] [address] [place] [address] Dr. Blanca ChangElucianothelial cells LM Ql (Urine sed)FEWAbnormalNONE SEEN /RAREThe [facility] SystemComtr[facility] health [facility] on above:Performed By: #### NESHA, ERUR #### [facility] [address] [place] [address] Dr. Evangelist MontgomeryCOUSSTEPHANIEE SEENNormalNONE SEENKettering HealthComtrinity health [place] on above:Performed By: #### NESHA, ERUR #### [facility] [address] [address] [address] Blanca PldvqKLY7-9Gwbiag1-7Qff [facility] SystemComment on above:Performed By: #### LUIS E JEFFRIES #### [facility] [address] [id number] Evangelist ChicasWBCNONE SEENNormalNONE SEENThe [facility] SystemComment on above: Performed By: #### LUIS E JEFFRIES #### [facility] [address] [address] [address] Evangelist ChicasXR CHEST 1 Von [id number] CHEST 1 VEXAMINATION: XR CHEST 1 V HISTORY: SHORTNESS OF BREATH , [...] No acute cardiopulmonary process. Electronically authenticated by: JUAN DAVID JAIN Date: 2022-11-10 15:24[facility] Vital Signs Date TimeVital SignValuePerforming RiusfybukYvrinhwz13-05-8411 11:20-0400Body glqdex488.56 cmMane Lee MD Work Phone: [facility]10-06-2025 11:20-0400 Body mass index (BMI) [Ratio]46.2 kg/m2Mane Lee MD Work Phone: [phone]-[facility]10-06-2025 11:20-0400 Body sbwmheaxnei19.5 [degF]Mane Lee MD Work Phone: [phone]-[facility]10-06-2025 11:20-0400 Body ceermf724.07 kgMane Lee MD Work Phone: [facility]10-06-2025 11:20-0400 Diastolic blood fhvngqab23 mm[Hg]Mane Lee MD Work Phone: [phone]10-06-2025 11:20-0400 Heart qauz607 /minMane Lee MD Work Phone: [phone] [place], [place] 2191610-06-2025 11:20-0400 Respiratory rate18 /minMane Lee MD Work Phone: [phone])[address] [place], [place] 2191610-06-2025 11:20-0400 SaO2% (BldA) [Mass fraction]95 %Mane Lee MD Work Phone: [phone])[address] [place], [place] 2191610-06-2025 11:20-0400 Systolic blood yemndvhg254 mm[Hg]Mane Lee MD Work Phone: [phone] [place], [place] 2191609-12-2025 10:06-0400 Body ugougk950.02 cmMane Lee MD Work Phone: [phone])[address] [place], [place] 2191609-12-2025 10:06-0400 Body mass index (BMI) [Ratio]46.7 kg/m2Mane Lee MD Work Phone: [phone] [place], [place] 2191609-12-2025 10:06-0400 Body .1 [degF]Mane Lee MD Work Phone: [phone] [place], [place] 2191609-12-2025 10:06-0400 Body hwypgj200.74 kgMane Lee MD Work Phone: [phone] [place], [place] 2191609-12-2025 10:06-0400 Diastolic blood bndlozuh10 mm[Hg]Mane Lee MD Work Phone: [phone] [place], [place] 2191609-12-2025 10:06-0400 Heart rate89 /minMane Lee MD Work Phone: [phone] [place], [place] 4928809-12-2025 10:06-0400 Respiratory rate20 /minMane Lee MD Work Phone: [facility]09-12-2025 10:06-0400 SaO2% (BldA) [Mass fraction]97 %Mane Lee MD Work Phone: [facility]09-12-2025 10:06-0400 Systolic blood txjuyrrh838 mm[Hg]Mane Lee MD Work Phone: [phone]06-05-2025 10:22-0400 Body zaiaqi358.6 cmMane Lee MD Work Phone: [facility] HospitalYxozpjrkal67-30-5592 10:22-0400Body mass index (BMI) [Ratio]46.35 kg/m2Mane Lee MD Work Phone: [facility] HospitalZuvmioemzs04-11-0437 10:22-0400Body temperature 97.3 [degF]Mane Lee MD Work Phone: [facility] HospitalSsoncogrzb90-70-0019 10:22-0400Body mitxvf102.47 kgMane Lee MD Work Phone: [facility] HospitalIvxolbxonn45-35-1340 10:22-0400Diastolic blood gikqlren37 mm[Hg]Mane Lee MD Work Phone: [facility] HospitalAehmpnnzsm41-41-6212 10:22-0400Heart rate87 /min Mane Lee MD Work Phone: [facility] HospitalOvjwocgphv30-44-6483 10:22-0400Respiratory rate20 /minMane Lee MD Work Phone: [facility] HospitalZxsjbpgguw60-68-3193 10:22-4152AnH3% (BldA) [Mass fraction]97 %Mane Lee MD Work Phone: [facility] HospitalBdkwwgkkht22-05-9081 10:22-0400Systolic blood mm[Hg]Mane Lee MD Work Phone: [facility] HospitalSmpjcofgjl58-24-8522 11:30-0400Body fahtsu573.6 cmMane Lee MD Work Phone: [facility] HospitalNwspjnvrlj86-28-7050 11:30-0400Body mass index (BMI) [Ratio]46.86 kg/m2Mane Lee MD Work Phone: [facility] HospitalHourvkmbbp25-59-1587 11:30-0400Body temperature 97.81 [degF]Mane Lee MD Work Phone: [facility] HospitalTbkvrhlixo41-76-3086 11:30-0400Body mfdkle266.83 kgMane Lee MD Work Phone: [facility] HospitalBgskitoojs92-40-9711 11:30-0400Diastolic blood nlanknyj03 mm[Hg]Mane Lee MD Work Phone: [facility] HospitalMeyunjszvy42-64-2304 11:30-0400Heart rate89 /min Mane Lee MD Work Phone: [facility] HospitalPdhokjogki41-96-4641 11:30-0400Respiratory rate20 /minMane Lee MD Work Phone: [facility] HospitalFqoomhjwme88-21-7612 11:30-4306BiW7% (BldA) [Mass fraction]96 %Mane Lee MD Work Phone: [facility] HospitalSwvgbnulcz51-19-0840 11:30-0400Systolic blood hsureubd600 mm[Hg]Mane Lee MD Work Phone: [facility] HospitalJjetpfavah41-65-9641 10:38-0500Body qblycr088.6 cmMane Lee MD Work Phone: [facility] HospitalYwhztziouw83-02-3685 10:38-0500Body mass index (BMI) [Ratio]48.58 kg/m2Mane Lee MD Work Phone: [facility] HospitalOeaomuiaea55-91-6488 10:38-0500Body temperature 97.5 [degF]Mane Lee MD Work Phone: [facility] HospitalCkszxkygsw99-44-3192 10:38-0500Body kavphq456.37 kgMane Lee MD Work Phone: [facility] HospitalJzjuupvriz32-18-3241 10:38-0500Diastolic blood vkapvoop93 mm[Hg]Mane Lee MD Work Phone: [facility] HospitalIpjcnmobmr22-52-2065 10:38-0500Heart rate96 /min Mane Lee MD Work Phone: [facility] HospitalQvwdzsxssx62-36-5344 10:38-0500Respiratory rate22 /minMane Lee MD Work Phone: [facility] HospitalJpcefxvuwo13-83-1609 10:38-9459CoT0% (BldA) [Mass fraction]98 %Mane Lee MD Work Phone: [facility] HospitalGxchukktrn00-63-8047 10:38-0500Systolic blood gsmocgnq331 mm[Hg]Mane Lee MD Work Phone: [facility] HospitalXjuetmvbii77-91-5165 11:22-0400Body lsoeso491 cm Mane Lee MD Work Phone: [facility] HospitalOjlamtulrx19-17-5080 11:22-0400Body mass index (BMI) [Ratio]47.12 kg/m2Mane Lee MD Work Phone: [facility] HospitalSmjwtimmwd39-89-3650 11:22-0400Body temperature 97.3 [degF]Mane Lee MD Work Phone: [facility] HospitalJovbdxmtxc70-77-1881 11:22-0400Body tcqzqo454.66 kgMane Lee MD Work Phone: [facility] HospitalJrvxkfljdd23-50-3252 11:22-0400Diastolic blood ougpcvid28 mm[Hg]Mane Lee MD Work Phone: [facility] HospitalJgphphbwnb97-22-2684 11:22-0400Heart rate99 /min Mane Lee MD Work Phone: [facility] HospitalAdrfhayocc70-87-2447 11:22-0400Respiratory rate22 /minMane Lee MD Work Phone: [place] [address]Inikdzupxe74-40-2431 11:22-2940CwT7% (BldA) [Mass fraction]96 %Mane Lee MD Work Phone: [phone] [place], [place] [address]Zxohabxino21-16-2484 11:22-0400Systolic blood wauvlyzv097 mm[Hg]Mane Lee MD Work Phone: [phone] HospitalXusbczvtch78-54-1483 10:31-0400Body cm Mane Lee MD Work Phone: [phone])[facility] [place], [place] [address]Qnlkhgywgl50-79-2010 10:31-0400Body mass index (BMI) [Ratio]47.65 kg/m2Mane Lee MD Work Phone: [phone] [place], [place] 49[address]108-22-2024 10:31-0400Body temperature 97.11 [degF]Mane Lee MD Work Phone: [phone])[address]08-22-2024 10:31-0400Body lcovqs085.02 kgMane Lee MD Work Phone: 1(053)[address]08-22-2024 10:31-0400Diastolic blood tvuabdkw23 mm[Hg]Mane Lee MD Work Phone: [phone] [place], [place] [address]Pacvusxegj35-26-1943 10:31-0400Heart rate90 /min Mane Lee MD Work Phone: [facility] HospitalFafjxultpi59-84-1915 10:31-0400Respiratory rate22 /minMane Lee MD Work Phone: 1([phone])8-[address] [place], [place] [address]Ktxtfelmla47-60-0452 10:31-5488XwL2% (BldA) [Mass fraction]97 %Mane Lee MD Work Phone: [facility] HospitalImbtwimgel33-79-5437 10:31-0400Systolic blood mkzunywx260 mm[Hg]Mane Lee MD Work Phone: [facility] HospitalJmvxkwpbpl74-95-9357 13:24-0500Body ekaneq382 cm Mane Lee MD Work Phone: 1([phone])756-[address] [place], [place] [address]Iuxpxizxtg13-16-6011 13:24-0500Body mass index (BMI) [Ratio]49.25 kg/m2Mane Lee MD Work Phone: [facility] HospitalXdeqqcdzis87-94-8192 13:24-0500Body temperature 97.3 [degF]Mane Lee MD Work Phone: noPhelps HealthHdctfbbrak01-12-0987 13:24-0500Body ucrrxp665.1 kgMane Lee MD Work Phone: noPhelps HealthQfxczgrydy62-53-5622 13:24-0500Diastolic blood ducvleat73 mm[Hg]Mane Lee MD Work Phone: noPhelps HealthEugshftnvk59-39-5318 13:24-0500Heart rate96 /min Mane Lee MD Work Phone: noPhelps HealthMrdoeecbut31-74-4498 13:24-3617SxV4% (BldA) [Mass fraction]96 %Mane Lee MD Work Phone: noPhelps HealthPvigymwtgq19-38-6537 13:24-0500Systolic blood uliktckc627 mm[Hg]Mane Lee MD Work Phone: noLA [facility] Encounters Encounter DateEncounter TypeCare ProviderFacilityStart: 09-07-2025 End: 19-78-5597Dbkshs flowsheetJr. Laurel Hayward DO Work Phone: noMS [facility]opaedicsStart: 09-07-2025 End: 48-38-5063Efanxx flowsheetJr. Laurel Hayward DO Work Phone: noms [facility]opaedicsStart: 09-07-2025 End: 71-36-4957Imuhum outpatient visit 25 minutesJr. Laurel Hayward DO Work Phone: [facility] OrthopaedicsComment on above:Internal derangement of left knee (Primary Dx); Acute pain of left kneeStart: 09-07-2025 End: 06-73-6127oarbphfpsiQB., LAUREL HAYWARDNot AvailableStart: 08-15-2025 End: 27-42-7537lqngffzjhvRyny Naderer MD Work Phone: [facility] Work Phone: Start: 08-15-2025 End: 97-07-8870Tqbbghd encounter procedureMane Lee MD-[facility] [place] Work Phone: Start: 08-08-2025 End: 72-32-5556Nysmwpa encounter procedureMane Lee MD-CT Scan [place] Work Phone: Start: 08-08-2025 End: 49-17-1598naavydmgirKmzn Naderer MD Work Phone: [facility] Work Phone: Start: 07-22-2025 End: 71-31-5683pgttanhxbyDmmu Naderer MD Work Phone: [facility] Work Phone: Start: 07-22-2025 End: 37-80-9091Xigajfp encounter procedureMane Lee MD-[facility] Medicine [place] Work Phone: Start: 05-27-2025 End: 63-62-5984KyylbaKofl Naderer MD Work Phone: noms CWM FMComment on above:Class 3 severe obesity due to excess calories with serious comorbidity and body mass index (BMI) of45.0 to 49.9 in adult ([facility])Start: 04-14-2025 End: 29-39-4792Atojwc flowsAshley Lee MD Work Phone: noms CWM FMStart: 04-14-2025 End: 98-23-7474Kwmzkw flowsAshley Lee MD Work Phone: n[facility] CWM FMStart: 04-14-2025 End: 80-04-7467Ezjyrr outpatient visit 25 minutesMane Lee MD Work Phone: [facility] FMComment on above:Essential hypertension, benign (CMS/HCC) (Primary Dx); Chronic obstructive pulmonary disease, unspecified COPD type (CMS/HCC); Leg edema; Class 3 severe obesity due to excess calories with serious comorbidity and body mass index (BMI) of45.0 to 49.9 in adultStart: 04-14-2025 End: 69-31-1818eedzpptzkwYDLS NADERERNot AvailableStart: 03-22-2025 End: 13-14-8968BxevrpWdmk Naderer MD Work Phone: noms CWM FMComment on above:Class 3 severe obesity due to excess calories with serious comorbidity and body mass index (BMI) of45.0 to 49.9 in adultStart: 02-14-2025 End: 41-94-8862Bcxcjqmeka Lee MD Work Phone: [facility] FMStart: 02-14-2025 End: 76-46-5129Wlklufmeka Lee MD Work Phone: n[facility] C[facility] FMStart: 02-14-2025 End: 44-56-7575Hzdxrr outpatient visit 25 minutesMane Lee MD Work Phone: noms CWM FMComment on above:Essential hypertension, benign (CMS/HCC) (Primary Dx); Chronic obstructive pulmonary disease, unspecified COPD type (CMS/HCC); Leg edema; Class 3 severe obesity due to excess calories with serious comorbidity and body mass index (BMI) of45.0 to 49.9 in adultStart: 02-14-2025 End: 27-64-7773fxdjfzqjfyZTJG NADERERNot AvailableStart: 01-12-2025 End: 16-26-1883Tbpahvtzb Result EncounterMane Lee MD Work Phone: noms External Department UnsolicitedStart: 01-12-2025 End: 69-71-6470Likicfden Result EncounterMane Lee MD Work Phone: noms External Department UnsolicitedStart: 01-10-2025 End: 16-39-9216Boxdib Darron Lee MD Work Phone: noms CWM FMStart: 01-10-2025 End: 66-43-9933Ciedue Darron Lee MD Work Phone: noms CWM FMStart: 01-10-2025 End: 61-18-5563Ujoblzc encounter procedureMane Lee MD Work Phone: noms HealthcareStart: 01-10-2025 End: 61-20-3128Vdyxienv preventive med est patient 40-64yrsMarc Jesus BACK Work Phone: noms CWM FMComment on above:Annual physical exam (Primary Dx); Essential hypertension, benign (CMS/HCC); Chronic obstructive pulmonary disease, unspecified COPD type (CMS/HCC); Class 3 severe obesity due to excess calories with serious comorbidity and body mass index (BMI) of45.0 to 49.9 in adult (CMS/HCC); Cigarette smokerStart: 01-10-2025 End: 73-52-1547yipmdceiqiHNLO NADERERNot AvailableStart: 08-04-2024 End: 84-45-4860Pbazhb Darron Lee MD Work Phone: n[facility] CWM FMStart: 08-04-2024 End: 38-33-5145Oevtda Darron Lee MD Work Phone: noms CWM FMStart: 08-04-2024 End: 62-74-0896Eprdrs outpatient visit 15 minutesMane Lee MD Work Phone: noms CWM FMComment on above:Acute bronchitis due to other specified organisms (Primary Dx); Essential hypertension, benign (CMS/HCC); Spinal stenosis, lumbar region, without neurogenic claudication; Vitamin D deficiency; Degeneration of lumbar intervertebral disc; Lower extremity edema; Moderate COPD (chronic obstructive pulmonary disease) (CMS/HCC)Start: 07-01-2024 End: 37-17-2182Yxmbhp Darron Lee MD Work Phone: n[facility] CWM FMStart: 07-01-2024 End: 14-12-0769Pyduse flowsAshley Lee MD Work Phone: n[facility] CWM FMStart: 07-01-2024 End: 75-54-1218Dibwjl outpatient visit 25 minutesMane Lee MD Work Phone: noms CWM FMComment on above:Essential hypertension, benign (CMS/HCC) (Primary Dx); Leg edema; Chronic obstructive pulmonary disease, unspecified COPD type (CMS/HCC); Degenerative lumbar spinal stenosis; Morbid obesity due to excess calories (CMS/HCC)Start: 06-25-2024 End: 50-44-5458Okjfnnnuu Result EncounterMane Lee MD Work Phone: noms External Department UnsolicitedStart: 06-25-2024 End: 55-07-4261Dthnbqdop Result EncounterMane Lee MD Work Phone: noms External Department UnsolicitedStart: 03-22-2024 End: 37-91-0757mjpllkeroxEhcudbi Vytautas Giedraitis MDFacility:[facility] [place] Start: 01-26-2024 End: 74-56-8076aszhvtkvcxYyhjlgy Vytautas Giedraitis MDFacility:[facility] Start: 12-29-2023 End: 25-76-7166dtwaipkdnnDxqbtsn Vytautas Giedraitis MDFacility:[facility] Start: 15-08-1474Wnorzz Darron Lee MD Work Phone: [facility] CWM FMStart: 95-02-2875Qtdwgy Darron Lee MD Work Phone: NOBK CWM FMStart: 12-23-2023 End: 50-75-5734Vgpsiv outpatient visit 25 minutesMane Lee MD Work Phone: n[facility] CWM FMComment on above:Essential hypertension, benign (CMS/HCC) (Primary Dx); Degenerative lumbar spinal stenosis; Lumbar disc herniation with radiculopathy; Leg edema; Chronic obstructive pulmonary disease, unspecified COPD type ([facility]/HCC)Start: 12-10-2023 End: 21-39-2820gbpqfwbgoyXP Mane Lee Work Phone: [facility] Work Phone: Start: 12-10-2023 End: 02-56-5191Rmawwac encounter procedureMD Mane Lee Work Phone: [facility] Work Phone: Start: 08-25-2023 End: 38-27-5852skkdrglfzzLnzkpco Vytautas Giedabby BACKFacility:[facility] Start: 01-29-2023 End: 99-94-8031yxadmfbbhlHB MANE DOWNINGERERFacility:M4Qvyzt: 11-10-2022 End: 52-48-2245Fnfkqxxlsf and management of inpatientDR MANE LEE Facility:H1 Procedures DateProcedureProcedure DetailPerforming ClinicianStart: 47-58-8101CB of lungs Mane Lee MD Work Phone: Start: 07-74-6145DYW CBC WITH AUTO DIFFMane Lee MD Work Phone: Start: 16-61-6343OO TOMOSYNTHESIS SCREENING BIMarc Jesus BACK Work Phone: Start: 09-17-1338ZoxknwgcmdyQqrf Naderer MD Work Phone: Start: 07-73-9424E-ray of lumbar spine, six views including bending viewsMD Mane Lee Work Phone: Start: 29-00-1387YpgglribxriVojv Naderer MD Work Phone: Start: 53-42-1917RmdpaxsqqxcWogo Naderer MD Work Phone: History of decompression of median nerveHistory of carpal tunnel releaseMane Lee MD Work Phone: Plan of Treatment DateCare ActivityDetailAuthorStart: 86-20-3616Cclfkcgnz for malignant neoplasm of colonNOMS HealthcareStart: 09-27-2025 End: 62-99-7003Ydrmunt encounter witkxdybh64/18/2025 2:00 PM EST Office Visit [facility] [address] [place] [phone] Ina Peterson PA [address] [place] [address] [facility]opa[facility]icsStart: 09-07-2025 End: 37-32-8284Tdsifbj encounter vhupdepuy81/29/2025 10:15 AM EDT Office Visit [facility] [address] [facility] [address] [place] [address] Jr. Laurel Hayward, DO [address] [place] [address] [facility] Comment on above:ArrivedStart: 07-56-8210Djhhrqc referralK[facility] Work Phone: Start: 07-22-2025 End: 68-21-6580Hprdliw encounter tviuudijh17/12/2025 10:00 AM EDT Office Visit [facility] [address] [place] [address] Mane Lee MD [address] [place] [address] NOMRomeo [facility] FMStart: 73-24-5121OQYAA-19 Vaccine ( season)COVID-19 Vaccine ( season)NOMS HealthcareStart: 83-40-8284Dsskpxike vaccinationInfluenza Vaccine (#1)[facility] HealthcareStart: 83-36-6095Xsutmixap for malignant neoplasm of breastMammogramNOMS HealthcareStart: 04-14-2025 End: 53-58-7481Oxgopeb encounter sgnmnjymp49/05/2025 10:15 AM EDT Office Visit [facility] [address] [place] [address] Mane Lee MD [address] [place] [address] NOMS CW FMStart: 04-12-2025 End: 79-51-4315Hglvxrk encounter dilpynsav30/03/2025 10:30 AM EDT Office Visit [facility] [address] [place] [address] Mane Lee MD [address] [place] [address] [facility] FMStart: 02-14-2025 End: 76-16-5697Ocvdmwm encounter procedureNOVETERANS [facility] [place] [facility] [place] FMComment on above:Arrived Start: 01-10-2025 End: 39-67-0534Kktdf metabolic 1998 panel - Serum or PlasmaBasic metabolic panel Lab Routine Annual physical exam Expected: 01/10/2025 (Approximate), Expires: 01/10/2026NOLA HealthcareComment on above:Expected: 01/10/2025 (Approximate), Expires: 01/10/2026Start: 01-10-2025 End: 70-71-2993SHC W Auto Differential panel - BloodCBC and differential Lab Routine Annual physical exam Expected: 01/10/2025 (Approximate), Expires: 0 01/10/2026NOLA HealthcareComment on above:Expected: 01/10/2025 (Approximate), Expires: 01/10/2026Start: 01-10-2025 End: 09-82-0397HA Chest for screening WO contrastCT lung screening low dose Imaging Routine Cigarette smoker Expected: 01/10/2025, Expires: 01/10/2026NOLA HealthcareComment on above:Expected: 01/10/2025, Expires: 01/10/2026Start: 01-10-2025 End: 89-16-2285Khjlnenlif A1c/Hemoglobin.total in BloodHemoglobin A1c Lab Routine Annual physical exam Expected: 01/10/2025 (Approximate), Expires: 01/10/2026[facility] Work Phone: Comment on above:Expected: 01/10/2025 (Approximate), Expires: 01/10/2026Start: 01-10-2025 End: 60-40-7161Cmfcdnv function 2000 panel - Serum or PlasmaHepatic function panel Lab Routine Annual physical exam Expected: 01/10/2025 (Approximate), Expires: 01/10/2026NOLA HealthcareComment on above:Expected: 01/10/2025 (Approximate), Expires: 01/10/2026Start: 01-10-2025 End: 54-60-9275Gnims 1996 panel - Serum or PlasmaLipid panel Lab Routine Annual physical exam Expected: 01/10/2025 (Approximate), Expires: 01/10/2026NOLA HealthcareComment on above:Expected: 01/10/2025 (Approximate), Expires: 01/10/2026Start: 01-10-2025 End: 80-45-1204Twhkqlralsl [Units/volume] in Serum or PlasmaTSH Lab Routine Annual physical exam Expected: 01/10/2025 (Approximate), Expires: 01/10/2026NOLA HealthcareComment on above:Expected: 01/10/2025 (Approximate), Expires: 01/10/2026Start: 01-10-2025 End: 56-78-2156Tjbhomh encounter procedureNOMS CWM FMComment on above:Arrived Start: 23-13-6701Sqjztjsya vaccinationInfluenza Vaccine (#1)[facility] Start: 07-01-2024 End: 04-55-7423Ohogndz encounter xqxdaxoow00/22/2024 10:30 AM EDT Office Visit [facility] [address] [place] [address] Mane Lee MD [address] [place] [address] ArrivedNOMS CWM FMComment on above:ArrivedStart: 02-24-2024 End: 16-16-4683Mhgqfmc encounter axzxcxxgg60/16/2024 9:00 AM EDT Office Visit [facility] [address] [place] [address] Mane Lee MD [address] [place] [address] NOM[facility] C[facility] FMStart: 73-21-6228Tqwbqbebu for malignant neoplasm of breast MammogramNOMS HealthcareStart: 12-23-2023 End: 75-91-8369Rcsheaw encounter znvjvhooq26/13/2024 1:15 PM EST Office Visit [facility] [address] [place] [address] Mane Lee MD [address] [place] [address] ArrivedNOMS CWM FMComment on above:ArrivedStart: 51-96-0533Ljdblilmu for malignant neoplasm of cervixNOMS HealthcareStart: 04-44-7952Jkcomvpbx for malignant neoplasm of cervixPap SmearNOMS HealthcareStart: 1982 Pneumococcal Vaccine: Pediatrics (0 to 5 Years) and At-Risk Patients (6 to 64 Years) (1 of 2 - PCV)Pneumococcal Vaccine: Pediatrics (0 to 5 Years) and At-Risk Patients (6 to 64 Years) (1 of 2 - PCV)NOMS HealthcareStart: 1970 DTaP/Tdap/Td Vaccines (1 - Tdap)DTaP/Tdap/Td Vaccines (1 - Tdap)[facility] Start: 98-22-6392SVK Vaccines (1 of 1 - Standard series)MMR Vaccines (1 of 1 - Standard series)NOM HealthcareStart: 86-35-9654Pawkzwunz for malignant neoplasm of colonNOMS HealthcareMR Knee - left WO [facility]Patient [facility] Work Phone: Immunizations Immunization DateImmunizationNotesCare BmfwiuibJxukogjc39-75-7798zguwayqqe virus vaccine, unspecified formulationMane Lee MD Work Phone: [facility] HospitalHiovfvcbaa79-97-4019vlxtebsso virus vaccine, unspecified formulationMane Lee MD Work Phone: [facility]OPhel[facility] Payers DatePayer CategoryPayerPolicy [id number] Cross Blue [id number] [id number] 1.2.840.272155.1.13.693.2.7.3.542[id number] 2.16.840.1.197837.3.57[id number] 2.16.840.1.048133.3.57[id number] 2.16.840.1.970338.3.57[id number] 2.16.840.1.930714.3.57[id number] 2.16.840.1.779129.3.57[id number] 2.16.840.1.417428.3.57[id number] 2.16.840.1.125977.3.57[id number] 2.16.840.1.045582.3.57[id number] 2..0.1.607233.3.57[id number] 2..840.1.003293.3.57[id number] 2.0.1.582762.3.579.2.133243-98-1414TpliurxQVS868S19442SvgkxibXNT [id number]-e5js-[id number] 2.0.1.621382.3.579.2.531 Social History DateTypeDetailFacilityTobacco smoking status NHISUnknown if ever smokedMiddletown Hospital Work Phone: Start: 54-11-8009Tuz [facility] At [facility] Hospitaltart: 10-31-2023 End: 17-21-2268Fqxfndv smoking status NHISSmokes tobacco dailyNOMS Healthcare History of tobacco useCigarette SmokerNOMS HealthcareStart: 10-31-2023 End: 18-03-5252Hfkeeagnul smoked current (pack per day) - Reported0.5NOMS HealthcareStart: 98-05-0855Xrbbaoy use and exposureSmokeless tobacco non-user NOMS HealthcareStart: 11-26-2023 End: 27-32-6772Zwcfkzkpdsq, Afraid, Rape, and Kick questionnaire [HARK]NOMS HealthcareWithin the last year, have you been afraid of your partner or ex-partner?NoNOMS HealthcareAre you now , , , , never or living with a partner?WidowedNOMS HealthcareHow often to you have a drink containing alcohol?NeverNOMS HealthcareStart: 99-01-1843Gfl many standard drinks containing alcohol do you have on a typical day?Patient does not drinkNOMS HealthcareHow hard is it for you to pay for the very basics like food, housing, medical care, and heatingNot very hardNOMS HealthcareDo you feel stress - tense, restless, nervous, or anxious, or unable to sleep at night because yourmind is troubled all the time - these days [OSQ]Not at allNOMS Healthcare(I/We) worried whether (my/our) food would run out before (I/we) got money to buy more.Never trueNOLA HealthcareStart: 22-80-7426Wlw Assigned At BirthNot on fileNOLA HealthcareSexFemale (finding)[facility] Clinical Notes 12-23-2023 to 09-07-2025 Note Date & UashQxsgIczltkqa85-79-6894 History of Present illness Narrative* Jr. Laurel Hayward, DO - 09/07/2025 10:15 AM EDT Images from the original note were not included. NAME: Lawrence Harrison : 1965 HISTORY OF PRESENT ILLNESS: NEW PT Lawrence Harrison is an 59 y.o. @ female. (NEW PT) (DR. LEE REFERRAL) - (L) KNEE DISCOMFORT S/P INJURY ~05/2025 (4 MONTHS) - FELL AND LANDED ON (L) KNEE XRAY (L) KNEE TODAY, 09/07/25 IN [facility] MRI (L) KNEE 08/23/25 @[facility] (IN CHANGE) PREDNISONE 08/15/25 - NO RELIEF NO CORTISONE INJ NO PT NO PAIN MGMT OFF WORK SINCE 07/21/25 - OFF UNTIL 09/19/25. INTERMITTENT ANTERIOR / LATERAL / POSTERIOR ACHING DISCOMFORT - WORSE WITH GOING FROM SITTING TO STANDING AFTER PROLONGED PERIODS / ELEVATING. ADMITS SWELLING. DENIES N/T. OCCASIONAL STIFFNESS. ADMITS WEAKNESS / BUCKLING. ADMITS CRACKING. DENIES GRINDING. LIMITED ROM. INTERMITTENTLY WAKING HS. NORCO QID - WITH RELIEF. FLEXERIL (BACK) DAILY. TRIED ICING / HEATING - SOME RELIEF. ADMITS ELEVATION. ICY HOT - LIMITED RELIEF. PAST MEDICAL HISTORY: Medical History[1] PAST SURGICAL HISTORY: Surgical History[2] SOCIAL HISTORY: Social History Occupational History Not on file Tobacco Use Smoking status: Every Day Current packs/day: 0.50 Types: Cigarettes Smokeless tobacco: Never Substance and Sexual Activity Alcohol use: Not on file Drug use: Not on file Sexual activity: Not on file ALLERGIES: Allergies[3] HOME MEDICATIONS: Current Outpatient Medications Medication Instructions albuterol HFA 90 mcg/act inhaler 2 puffs, Inhalation, Every 6 hours PRN albuterol 2.5 mg, Nebulization, Every 6 hours PRN amLODIPine (NORVASC) 5 mg, Oral, Daily cyclobenzaprine (FLEXERIL) 10 mg, Oral, 3 times daily PRN DULoxetine (CYMBALTA) 60 mg, Oral, Daily furosemide (LASIX) 40 mg, Oral, Daily losartan-hydroCHLOROthiazide (Hyzaar) 100-25 MG tablet 1 tablet, Oral, Daily phentermine (ADIPEX-P) 37.5 mg, Oral, Daily before breakfast Umeclidinium-Vilanterol (Anoro Ellipta) 62.5-25 MCG/ACT aerosol powder 1 puff, Inhalation, Daily zonisamide (ZONEGRAN) 50 mg, Oral, Nightly REVIEW OF SYSTEMS: Review of Systems Vitals: There is no height or weight on file to calculate BMI. Tobacco Use: High Risk (09/07/2025) Patient History Smoking Tobacco Use: Every Day Smokeless Tobacco Use: Never Passive Exposure: Not on file Alcohol Use: Not At Risk (11/26/2023) AUDIT-C Frequency of Alcohol Consumption: Never Average Number of Drinks: Patient does not drink Frequency of Binge Drinking: Never PHYSICAL EXAM: Knee Musculoskeletal Exam Gait Gait is normal. Limp: left Inspection Leg length disparity: no discrepancy Left Erythema: none Effusion: mild Edema: none Ecchymosis: none Deformity: none Alignment: normal Palpation Left Increased warmth: none Masses: none Tenderness: present Medial joint line: moderate Range of Motion Left Left knee range of motion is normal and full. Active extension: 0 Passive extension: 0 Active flexion: 125 Passive flexion: 125 Range of motion additional comments: + PAIN ON TERMINAL FLEXION AND EXTENSION Strength Left Extension: 5/5. Extension is affected by pain. Flexion: 5/5. Flexion is affected by pain. Instability Left Instability signs: none - stable Varus stress grade: normal Valgus stress grade: normal Anterior drawer: normal Medial Jamila test: positive Lateral Jamila test: negative Neurovascular Left Left knee neurovascular exam is normal. Pulses - PT: normal Posterior tibial: 2+ Capillary refill: warm and well-perfused Special Signs Left Left knee special signs are normal. Patellar apprehension: none General Constitutional: appears stated age Labored breathing: no Psychiatric: normal mood and affect Neurological: alert Skin: intact Lymphadenopathy: none IMAGING: XR knee 1 or 2 views left Imaging Result: X-rays AP and lateral of left knee show mild degenerative changes with mild flattening of the articular surfaces to the medial joint line with decreased joint space height to the medial joint line. Lateral joint line appeared to be well preserved there was subchondral sclerosis noted at the medial joint line and patellofemoral joint. There is no evidence of fracture or dislocation. Bony structures visualized appeared to be adequately ossified. Procedures Orders Placed This Encounter Procedures XR knee 1 or 2 views left Standing Status: Future Number of Occurrences: 1 Expected Date: 09/07/2025 Expiration Date: 09/07/2026 Reason for exam:: Pain ASSESSMENT: ICD-10-CM 1. Internal derangement of left knee M23.92 2. Acute pain of left knee M25.562 XR knee 1 or 2 views left CANCELED: XR knee 1 or 2 views left PLAN: We have discussed her case with her at length including her OCD and lateral meniscus tear. We have recommended a diagnostic and operative arthroscopy of her Left knee after lengthy discussions involving both surgical and nonsurgical treatment options. Patient fully understands the risks and benefits of said surgical procedure. We have discussed both surgical and nonsurgical treatment options with the patient and the risks and benefits associated with both. The patient is requesting surgical intervention because the patient's symptoms were affecting the patient's activities of daily living and ability to sleep. The patient's symptoms were unresponsive to outpatient treatment options. After lengthy discussions involving but not limited to both surgical and nonsurgical treatment options the patient has requested surgical intervention and we will see them back on the day of surgery. The patient understands the risks ofsaid treatment. Questions answered in laymen terms at the bedside. The diagnosis, home exercise plan and any ongoing restrictions/ recommendations reviewed. If unable to be reached in office, I recommend evaluation at nearest Emergency Room if any symptoms worsened or new symptoms develop for requiring urgent evaluation. [1] Past Medical History: Diagnosis Date Benign essential hypertension Bilateral leg edema COPD, moderate (HCC) DDD (degenerative disc disease), lumbar Degenerative lumbar spinal stenosis History of colon polyps History of endometrial ablation Obstructive sleep apnea, adult Osteopenia of neck of right femur Smoking Vitamin D deficiency [2] Past Surgical History: Procedure Laterality Date ENDOMETRIAL ABLATION [3] Allergies Allergen Reactions Ciprofloxacin documented in this encounterBarton County Memorial [id number] Hospital Discharge instructionsAmbulatory Orders* Referral to Orthopedic Surgery Time Frame: 08/15/25, Location: None Selected [facility] Work Phone: [phone]) 751-916409-29-2025 Radiology [facility]PROT[facility] [place] [address] [place] [address] CT Scan Report Signed Patient: Lawrence Harrison MR#: [id number] : 1965 Acct:[id number] Age/Sex: 59 / F ADM Date: 5 Loc: CT Room: Type: [facility] Attending Dr: Mane Lee MD Copies [...] nondilated. No pericardial effusion. No lymphadenopathy. The esophagusis grossly unremarkable. Lungs: No focal consolidation, pneumothorax [...] Jr., D.O. 08/08/2025 12:43 PM Dictation Location: [place] [address] Transcribed By: [facility] 08/08/25 1243 Dictated By: Owen Smith Jr, DO 08/08/25 1242 Signed By: 08/08/25 1243 [facility]09-12-2025 Evaluation note* Diagnosis Onset Date Resolution Status Admit Date Benign essential HTN acuteSeptember 2024 9:49amClass 3 severe obesity due to excess calories with serious comorbidity andacuteSeptember 2024 9:49amCOPD (chronic obstructive pulmonary disease)acuteSeptember 2024 9:49amDegenerative lumbar spinal stenosisacuteSeptember 2024 9:49amLeg edemaacuteSeptember 2024 9:49amPrimary osteoarthritis of left kneeacuteSeptember 2024 9:49am [facility] Work Phone: [phone]) 744-375409-12-2025 Evaluation note* Diagnosis Onset Date Resolution Status Admit Date Benign essential HTN acuteSeptember 2024 9:49amClass 3 severe obesity due to excess calories with serious comorbidity andacuteSeptember 2024 9:49amCOPD (chronic obstructive pulmonary disease)acuteSeptember 2024 9:49amDegenerative lumbar spinal stenosisacuteSeptember 2024 9:49amLeg edemaacuteSeptember 2024 9:49amPrimary osteoarthritis of left kneeacuteSeptember 2024 9:49amInternal derangement of left kneeacuteOctober 2024 10:57am [facility] Work Phone: [phone] 695-455206-05-2025 History of Present illness Narrative* Mane Lee MD - 04/14/2025 11:08 AM EDTAssociated Problem(s): Leg edema Edema controlled with lasix. Elevate legs PRN. * Mane Lee MD - 04/14/2025 11:08 AM EDTAssociated Problem(s): Essential hypertension, benign ([facility]/HCC) BP controlled and monitor PRN. * Mane Lee MD - 04/14/2025 11:08 AM EDTAssociated Problem(s): COPD (chronic obstructive pulmonary disease) ([facility]) Breathing stable and encouraged to [...] legs PRN. COPD (chronic obstructive pulmonary disease) (CMS/[facility]) Breathing stable and encouraged to [...] (Adipex-P) 37.5 MG tablet documented in this encounterBarton County Memorial [id number] History of Present illness Narrative* Mane Lee MD - 02/14/2025 11:50 AM EDTAssociated Problem(s): Leg edema Edema controlled with lasix. Elevate legs PRN. * Mane Lee MD - 02/14/2025 11:50 AM EDTAssociated Problem(s): Essential hypertension, benign (CMS/HCC) BP controlled and monitor PRN. * Mane Lee MD - 02/14/2025 11:50 AM EDTAssociated Problem(s): COPD (chronic obstructive pulmonary disease) (CMS/HCC) [...] worsening symptoms contact office. documented in this encounterBarton County Memorial [id number] History of Present illness Narrative* Mane Lee MD - 01/10/2025 11:07 AM ESTAssociated Problem(s): Cigarette smoker Check low dose CT chest * Mane Lee MD - 01/10/2025 11:06 AM ESTAssociated Problem(s): Essential hypertension, benign ([facility]) BP elevated today but previously controlled. Monitor PRN. * Mane Lee MD - 01/10/2025 11:06 AM ESTAssociated Problem(s): COPD (chronic obstructive pulmonary disease) ([facility]) Breathing stable and encouraged to quit smoker. Continue inhalers. * Mane Lee MD - 01/10/2025 11:06 AM ESTAssociated Problem(s): Class 3 severe obesity due to excess calories with serious comorbidity and body mass index (BMI) of 45.0 to 49.9 in adult ([facility]) Patient overweight and difficult time [...] Monitor PRN. COPD (chronic obstructive pulmonary disease) (CMS/HCC) Breathing stable and encouraged to quit smoker. Continue inhalers. Class 3 severe obesity due to excess calories with serious comorbidity and body mass index (BMI) of45.0 to 49.9 in adult (CMS/HCC) Patient overweight [...] low dose CT chest documented in this encounterBarton County Memorial [id number] History of Present illness Narrative* Mane Lee [...] (Deltasone) 50 MG tablet documented in this encounterBarton County Memorial [id number] History of Present illness Narrative* Mane Lee [...] EDTAssociated Problem(s): COPD (chronic obstructive pulmonary disease) (CMS/HCC) [...] (Adipex-P) 37.5 MG tablet documented in this encounterBarton County Memorial [id number] History of Present illness Narrative* Mane Lee [...] off work until 03/08/24. documented in this encounterNOLA HealthcareEvaluation noteNo assessment information availableDunlap Memorial Hospital Ctr Work Phone: Evaluation note* Diagnosis Essential hypertension, benign (CMS/HCC)- Primary Essential hypertension, benign Degenerative lumbar spinal stenosis Spinal stenosis of lumbar region Lumbar disc herniation with radiculopathy Displacement of lumbar intervertebral disc without myelopathy Leg edema Edema Chronic obstructive pulmonary disease, unspecified COPD type (CMS/HCC) documented in this encounter [facility] HealthcareEvaluation note* Diagnosis Essential hypertension, benign (CMS/HCC)- Primary Essential hypertension, benign Leg edema Edema Chronic obstructive pulmonary disease, unspecified COPD type (CMS/HCC) Degenerative lumbar spinal stenosis Spinal stenosis of lumbar region Morbid obesity due to excess calories (CMS/HCC) documented in this encounter [facility] HealthcareEvaluation note* Diagnosis Acute bronchitis due to other specified organisms- Primary Essential hypertension, benign (CMS/HCC) Essential hypertension, benign Spinal stenosis, lumbar region, without neurogenic claudication Vitamin D deficiency Degeneration of lumbar intervertebral disc Degeneration of lumbar or lumbosacral intervertebral disc Lower extremity edema Edema Moderate COPD (chronic obstructive pulmonary disease) (CMS/HCC) documented in this encounter [facility] HealthcareEvaluation note* Diagnosis Essential hypertension, benign [...] index (BMI) of45.0 to 49.9 in adult (CMS/HCC) Cigarette smoker Tobacco use disorder documented in this encounter [facility] HealthcareEvaluation note* Diagnosis Essential hypertension, benign (CMS/HCC)- [...] index (BMI) of45.0 to 49.9 in adult Cigarette smoker Tobacco use disorder Essential hypertension, benign (CMS/HCC)- Primary Essential hypertension, benign Chronic obstructive pulmonary disease, unspecified COPD type (CMS/HCC) Leg edema Edema Class 3 severe obesity due to excess calories with serious comorbidity and body mass index (BMI) of45.0 to 49.9 in adult documented in this encounter [facility] HealthcareEvaluation note* Diagnosis Essential hypertension, benign (CMS/HCC)- [...] index (BMI) of45.0 to 49.9 in adult Cigarette smoker Tobacco use disorder Essential hypertension, benign (CMS/HCC)- Primary Essential hypertension, benign Chronic obstructive pulmonary disease, unspecified COPD type (CMS/HCC) Leg edema Edema Class 3 severe obesity due to excess calories with serious comorbidity and body mass index (BMI) of45.0 to 49.9 in adult Class 3 severe obesity due to excess calories with serious comorbidity and body mass index (BMI) of45.0 to 49.9 in adult documented in this encounter [facility] HealthcareEvaluation note* Diagnosis Essential hypertension, benign [...] index (BMI) of45.0 to 49.9 in adult Cigarette smoker Tobacco use disorder Essential hypertension, benign (CMS/HCC)- Primary Essential hypertension, benign Chronic obstructive pulmonary disease, unspecified COPD type (CMS/HCC) Leg edema Edema Class 3 severe obesity due to excess calories with serious comorbidity and body mass index (BMI) of45.0 to 49.9 in adult Essential hypertension, benign (CMS/HCC)- Primary Essential hypertension, benign Chronic obstructive pulmonary disease, unspecified COPD type (CMS/HCC) Leg edema Edema Class 3 severe obesity due to excess calories with serious comorbidity and body mass index (BMI) of45.0 to 49.9 in adult documented in this encounter [facility] HealthcareEvaluation note* Diagnosis Essential hypertension, benign- Primary [...] index (BMI) of45.0 to 49.9 in adult ([facility]) Cigarette smoker Tobacco use disorder Essential hypertension, benign- Primary Essential hypertension, benign Chronic obstructive pulmonary disease, unspecified COPD type (HCC) Leg edema Edema Class 3 severe obesity due to excess calories with serious comorbidity and body mass index (BMI) of45.0 to 49.9 in adult ([facility]) Essential hypertension, benign- Primary Essential hypertension, benign Chronic obstructive pulmonary disease, unspecified COPD type (HCC) Leg edema Edema Class 3 severe obesity due to excess calories with serious comorbidity and body mass index (BMI) of45.0 to 49.9 in adult ([facility]-HCC) Class 3 severe obesity due to excess calories with serious comorbidity and body mass index (BMI) of45.0 to 49.9 in adult ([facility]) documented in this encounter [facility] HealthcareEvaluation note* Diagnosis Onset Date Resolution Status Admit Date Benign essential HTN acuteSept2024 9:49amClass 3 severe obesity due to excess calories with serious comorbidity andacuteSeptember 2024 9:49amCOPD (chronic obstructive pulmonary disease)acuteSeptember 2024 9:49amDegenerative lumbar spinal stenosisacuteSept2024 9:49amLeg edemaacuteSeptember 2024 9:49amPrimary osteoarthritis of left kneeacuteSept2024 9:49am [facility] Work Phone: Evaluation note* Diagnosis Essential hypertension, benign- Primary Degenerative lumbar spinal stenosis Spinal stenosis of lumbar region Lumbar disc herniation with radiculopathy Displacement of lumbar intervertebral disc without myelopathy Morbid obesity ([facility]) Morbid obesity Essential hypertension, benign- Primary Degenerative lumbar spinal stenosis Spinal stenosis of lumbar region Leg edema Edema Morbid obesity ([facility]-HCC) Morbid obesity Essential hypertension, benign- Primary Degenerative lumbar spinal stenosis Spinal stenosis of lumbar region Lumbar disc herniation with radiculopathy Displacement of lumbar intervertebral disc without myelopathy Leg edema Edema Chronic obstructive pulmonary disease, unspecified COPD type (HCC) Essential hypertension, benign- Primary Degenerative lumbar spinal stenosis Spinal stenosis of lumbar region Chronic obstructive pulmonary disease, unspecified COPD type (HCC) Leg edema Edema Morbid obesity due to excess calories ([facility]) Body mass index [BMI] 45.0-49.9, adult (Z68.42) Essential hypertension, benign- Primary Chronic obstructive pulmonary disease, unspecified COPD type (HCC) Degenerative lumbar spinal stenosis Spinal stenosis of lumbar region Leg edema Edema Breast cancer screening by mammogram Morbid obesity due to excess calories ([facility]) Body mass index [BMI] 45.0-49.9, adult (Z68.42) Essential hypertension, benign- Primary Chronic obstructive pulmonary disease, unspecified COPD type (HCC) Degenerative lumbar spinal stenosis Spinal stenosis of lumbar region Leg edema Edema Morbid obesity due to excess calories ([facility]) Injury of ulnar collateral ligament of wrist, right, initial encounter Essential hypertension, benign- Primary Leg edema Edema Chronic obstructive pulmonary disease, unspecified COPD type (HCC) Degenerative lumbar spinal stenosis Spinal stenosis of lumbar region Morbid obesity due to excess calories ([facility]) Annual physical exam- Primary Routine general medical examination at a health care facility Essential hypertension, benign Chronic obstructive pulmonary disease, unspecified COPD type (HCC) Class 3 severe obesity due to excess calories with serious comorbidity and body mass index (BMI) of45.0 to 49.9 in adult ([facility]) Cigarette smoker Tobacco use disorder Essential hypertension, benign- Primary Chronic obstructive pulmonary disease, unspecified COPD type (HCC) Leg edema Edema Class 3 severe obesity due to excess calories with serious comorbidity and body mass index (BMI) of45.0 to 49.9 in adult ([facility]) Essential hypertension, benign- Primary Chronic obstructive pulmonary disease, unspecified COPD type (HCC) Leg edema Edema Class 3 severe obesity due to excess calories with serious comorbidity and body mass index (BMI) of45.0 to 49.9 in adult ([facility]) Internal derangement of left knee- Primary Acute pain of left knee Acute pain of left knee documented in this encounter [facility] HealthcareReason for referral (narrative)No reason for referral information availableKettering Health [facility] Work Phone: Summary Purpose Family History No [...] and content) DATE CREATED AUTHOR 02/02/2023 [facility] DATE CREATED AUTHOR AUTHOR'S ORGANIZ ATION 03/27/2024 [facility] DATE CREATED AUTHOR AUTHOR'S ORGANIZ ATION 08/14/2025 [facility] DATE CREATED AUTHOR AUTHOR'S ORGANIZ ATION 09/11/2025 [facility] EPIC Care Teams (unrecognized sec tion and content) Team Status: Active Member Role Status Dates Mane Lee MD Primary Care Provider Active Team Status: Inactive Member Role Status Dates Mane Lee MD Primary Care Provider Active S tart: December 10, 2023 End: December 10, 2023Lakisha Shipman NP-CAttending ProviderActiveStart: December 10, 2023 End: December 10, 2023Team MemberRelationshipSpecialtyStart DateEnd Date Mane Lee MD [address] [place] [address] PCP - GeneralFamily Medicine12/23/23Team MemberRelationshipSpecialtyStart DateEnd Date Mane Lee MD [address] [place] [address] PCP - Generalmily Medicine12/23/23Team MemberRelationshipSpecialtyStart DateEnd Date Mane Lee MD [address] [place] [address] PCP - GeneralFamily Medicine12/23/23 Mane Lee MD [address] [place] [address] PCP - [place] [employer]01/09/24Team MemberRelationshipSpecialtyStart DateEnd Date Mane Lee MD [address] [place] [address] PCP - Generalmily Medicine12/23/23 Mane Lee MD [address] [place] [address] PCP - [place] [employer]01/09/24Team MemberRelationshipSpecialtyStart DateEnd Date Mane Lee MD [address] [place] [address] PCP - GeneralFamily Medicine12/23/23 Mane Lee MD [address] [place] [address] PCP - [place] [employer]01/09/24Team MemberRelationshipSpecialtyStart DateEnd Date Mane Lee MD [address] [place] [address] [facility] - [facility]12/23/23 Mane Lee MD [address] [place] [address] PCP - [place] [employer]01/09/24Team MemberRelationshipSpecialtyStart DateEnd Date Mane Lee MD [address] [place] [address] [facility] - [facility]12/23/23 Mane Lee MD [address] [place] [address] PCP - [place] [employer]01/09/24Team MemberRelationshipSpecialtyStart DateEnd Date Mane Lee MD [address] [place] [address] [facility]12/23/23 Mane Lee MD [address] [place] [address] PCP - [place] [employer]01/09/24Team MemberRelationshipSpecialtyStart DateEnd Date Mane Lee MD [address] [place] [address] PCP - Generalmily Medicine12/23/23 Mane Lee MD [address] [place] [address] PCP - [place] [employer]01/09/24Team MemberRelationshipSpecialtyStart DateEnd Date Mane Lee MD [address] [place] [address] PCP - [facility] Medicine12/23/23 Mane Lee MD [address] [place] [address] PCP - [place] [facility]01/09/24Team MemberRelationshipSpecialtyStart DateEnd Date Mane Lee MD [address] [place] [address] PCP - [facility]12/23/23 Mane Lee MD [address] [place] [address] PCP - [place] [facility]01/09/24Team MemberRelationshipSpecialtyStart DateEnd Date Mane Lee MD [address] [place] [address] PCP - [facility] Medicine12/23/23 Mane Lee MD [address] [place] [address] PCP - [place] [employer]01/09/24Team MemberRelationshipSpecialtyStart DateEnd Date Mane Lee MD [address] [place] [address] PCP - [facility] Medicine12/23/23 Mane Lee MD [address] [place] [address] PCP - [place] [employer]01/09/24 Team Status: Inactive Member Role Status Dates Mane Lee MD Primary Care Provider Active S tart: July 22, 2025 End: July 22, 2025Mar Nigel Lee ProviderActiveStart: July 22, 2025 End: July 22, 2025 Team Status: Inactive Member Role Status Dates Mane Lee MD Primary Care Provider Active S tart: August 08, 2025 End: August 08, 2025[facility] Nigel Lee ProviderActiveStart: August 08, 2025 End: August 08, 2025 Team Status: Inactive Member Role Status Dates Mane Lee MD Primary Care Provider Active S tart: August 15, 2025 End: August 15, 2025[facility] Nigel Lee ProviderActiveStart: August 15, 2025 End: August 15, 2025Team MemberRelationshipSpecialtyStart DateEnd Date Mane Lee MD [address] [place] [address] PCP - [place] [employer]01/09/24 Mane Lee MD [address] [place] [address] PCP - [facility] Cgaczjrv78/20/25Team MemberRelationshipSpecialtyStart Date End Date Mane Lee MD PCP - Generalmi Medicine12/23/2409 Mane Lee MD [address] [place] [address] PCP - [place] [employer]01/09/24 Mane Lee MD [address] [place] [address] PCP - [facility] Cqsorgsp47/20/25Team MemberRelationshipSpecialtyStart Date End Date Mane Lee MD [address] [place] [address] PCP - [place] [employer]01/09/24 Mane Lee MD [address] [place] [address] PCP - [facility] Hyvgream97/20/25 Goals (unrecognized section and content) Goals may be documented in a n alternate sectionGoals may be documented in an alternate sectionGoals may be documented in an alternate sectionGoals may be documented in an alternate sectionGoals may be documented in an alternate section Reason for Visit (unrecogniz ed section and content) ReasonCommentsFollow-up1 mReasonCommentsFollow-upChest/head congestion, chills, HeadachReasonCommentsFollow-pp5xLstt PainGetting bad againReasonComments Follow-up1 M [facility] F/UReasonOnset DateCommentsMed Iuwsmk5303/22/2025Reason CommentsFollow-up2m f/upFallFell at work last weekReasonOnset DateCommentsMed Wojcqs9805/27/2025ReasonCommentsPainSpecialtyDiagnoses / ProceduresReferred By ContactReferred To ContactOrthopaedic Surgery Diagnoses Unspecified internal derangement of left knee Unilateral primary osteoarthritis, left knee Procedures [place] [facility] [employer] [employer] [facility] [facility] Mane Lee MD [address] [place] [address] Phone: tel: fax: Jr. Laurel Haywrad, [address] [facility] [address] [place] [address] Phone: tel: fax: Referral IDStatusReasonStart DateExpiration DateVisits RequestedVisits [id number] FOR RECORDS PERTAINING TO PATIENTS WHO ARE [...] BE BASED ON THE PRIMARY CLINICAL RECORDS. [facility] [employer] provides no warranty or guarantee of the accuracy or completeness of information in this document.
--- OUTSIDE RECORDS SUMMARY | 2025-10-07 13:52 | XMS_ITS | Encounter Summary ---
Author Organization [facility] Address [address] [facility] [place] [address] Care Team Providers Care Tool Honing Machine Set Up Operator Name Role Phone Mane Kearney MD Unavailable Mane Kearney MD Primary Care Provider [phone] Encounter Details DateTypeDepartmentCare Team (Latest Contact Info)Nwkxpsshzqb71/18/2025amboo flowsheet [facility] [address] [place] [address] Jonathan Peterson PA [address] [place] [address] Social History Tobacco UseTypesPacks/DayYears UsedDateSmoking Tobacco: Every DayCigarettes Smokeless Tobacco: NeverHumiliation, Afraid, Rape, and Kick questionnaireAnswer Date RecordedWithin the last year, have you been afraid of your partner or ex-partner?No11/26/2023Within the last year, have you been humiliated or emotionally abused in other ways by your partner or ex-partner?No11/26/2023 Within the last year, have you been kicked, hit, slapped, or otherwise physically hurt by your partner or ex-partner?No11/26/2023Within the last year, have you been raped or forced to have any kind of sexual activity by your part ner or ex-partner?No11/26/2023Social Connection and Isolation PanelAnswerDate RecordedIn a typical week, how many times do you talk on the phone with family, friends, or neighbors?Once a week11/26/2023How often do you get together with friends or relatives?Once a week11/26/2023How often do you attend yazidi or mandaen services?Never11/26/2023o you belong to any clubs or organizations such as yazidi groups, unions, fraternal or athletic groups, or school groups?No 11/26/2023How often do you attend meetings of the clubs or organizations you belong to?Never11/26/2023re you , , , , never , or living with a partner?Tzdpxdb5411/26/2023UDIT-CAnswerDate RecordedQ1: How often do you have a drink containing alcohol?Never11/26/2023Q2: How many drinks containing alcohol do you have on a typical day when you are drinking? Patient does not drink11/26/2023Q3: How often do you have six or more drinks on one occasion?Never11/26/2023Overall Financial Resource Strain (CARDIA)AnswerDate RecordedHow hard is it for you to pay for the very basics like food, housing, medical care, and heating?Not very hard11/26/2023[facility] [place] of Occupational Health - Occupational Stress QuestionnaireAnswerDate RecordedDo you feel stress - tense, restless, nervous, or anxious, or unable to sleep at night because yourmind is troubled all the time - these days?Not at all11/26/2023 Exercise Vital SignAnswerDate RecordedOn average, how many days per week do you engage in moderate to strenuous exercise (like a brisk walk)?0 days11/26/2023On average, how many minutes do you engage in exercise at this level?Patient fphtxejc78/17/2024Hunger Vital SignAnswerDate RecordedWithin the past 12 months, you worried that your food would run out before you got the money to buymore. Never true11/26/2023Within the past 12 months, the food you bought just didn't last and you didn't have money to get more.Never true11/26/2023RAPARE - TransportationAnswerDate RecordedIn the past 12 months, has lack of transportation kept you from medical appointments or from getting medications?No 11/26/2023In the past 12 months, has lack of transportation kept you from meetings, work, or from getting things needed for daily living?No11/26/2023 Housing Stability Vital SignAnswerDate RecordedIn the last 12 months, was there a time when you were not able to pay the mortgage or rent on time?No11/26/2023 Number of Places Lived in the Last YearNot on file11/26/2023In the last 12 months, was there a time when you did not have a steady place to sleep or slept in ashelter (including now)?No11/26/2023CommentsUnknownSex and Gender InformationValueDate RecordedSex Assigned at BirthNot on fileLegal SexFemale 01/22/2023 6:46 PM EDTGender IdentityNot on fileSexual OrientationNot on file documented as of this encounter Plan of Treatment DateTypeDepartmentCare Team (Latest Contact Info)Ddvscdqeitk35/24/2025 10:00 AM ESTOffice Visit [facility] [address] [place] [address] Jonathan Peterson PA [address] [place] [address] documented as of this encounter Visit Diagnoses Not on filedocumented in this encounter Care Teams Team MemberRelationshipSpecialtyStart DateEnd Date Mane Kearney MD [address] [place] [phone] PCP - Madeline Portillo01/09/24 Mane Kearney MD [address] [place] [address] PCP - GeneralFamily Gncztekc78/20/25documented as of this encounter
--- OUTSIDE RECORDS SUMMARY | 2025-10-07 13:52 | XMS_ITS | Encounter Summary ---
Author Organization [facility] Address [address] [place] [address] Care Team Providers Care Manufacturing Engineer Chief Name Role Phone Mane Kearney MD Unavailable Mane Kearney MD Primary Care Provider [phone] Encounter Details DateTypeDepartmentCare Team (Latest Contact Info)Yibicezqjcz66/18/2025Travel Social History Tobacco UseTypesPacks/DayYears UsedDateSmoking Tobacco: Every [...] relatives?Once a week11/26/2023How often do you attend christian or voodoo services?Never11/26/2023o you belong to any clubs or organizations such as christian groups, unions, fraternal or athletic groups, or school groups?No 11/26/2023How often do you attend meetings of the clubs or organizations you belong to?Never11/26/2023re you , , , , never , or living with a partner?Qzmutqs5311/26/2023UDIT-CAnswerDate RecordedQ1: How often do you have a [...] food, housing, medical care, and heating?Not very hard11/26/2023[facility] [place] of Occupational Health - Occupational Stress QuestionnaireAnswerDate [...] you engage in exercise at this level?Patient azjcrrfb18/17/2024Hunger Vital SignAnswerDate RecordedWithin the past 12 months, [...] steady place to sleep or slept in [place] (including now)?No4CommentsUnknownSex and Gender InformationValueDate RecordedSex Assigned at BirthNot on fileLegal SexFemale 01/22/2023 6:46 PM EDTGender IdentityNot on fileSexual OrientationNot on file documented as of this encounter Plan of Treatment DateTypeDepartmentCare Team (Latest Contact Info)Haiaafqjtkm00/24/2025 10:00 AM ESTOffice Visit [facility] [address] [place] [address] Jonathan Peterson PA [address] [place] [address] documented as of this encounter Visit Diagnoses Not on filedocumented in this encounter Care Teams Team MemberRelationshipSpecialtyStart DateEnd Date Mane Kearney MD [address] [place] [phone] PCP - [employer]01/09/24 Mane Kearney MD [address] [place] [phone] PCP - GeneralFamily Pzjjrawe96/20/25documented as of this encounter
--- OUTSIDE RECORDS SUMMARY | 2025-10-07 13:52 | XMS_ITS | Clinical Summary ---
Author Organization [facility] tem Address [id number] [place] [address] Care Team Providers Care Commercial Energy Auditor Name Role Phone Mane Kearney MD Primary Care Provider [phone] Allergies Active AllergyReactionsCriticalityNoted DateCommentsCiprofloxacinAnaphylaxisHigh 02/28/2022 Medications MedicationSigDispense QuantityRefillsLast FilledStart DateEnd DateStatus VITAMIN D3 50 mcg (2,000 unit) capsule Take 2,000 Units by mouth daily.12/23/2021ctive acetaminophen (TYLENOL EXTRA STRENGTH) 500 mg tablet Take 500 mg by mouth every 6 (six) hours as needed for pain.Active Active Problems No known active problems Family History Medical HistoryRelationNameCommentsDementiaFatherStrokeFatherLeukemiaMaternal AuntLung cancerMaternal GrandfatherLung cancerMaternal GrandmotherCOPDMother RelationNameStatusCommentsFatherDeceasedMaternal AuntDeceasedMaternal GrandfatherDeceasedMaternal GrandmotherDeceasedMotherDeceased Social History Tobacco UseTypesPacks/DayYears UsedDateSmoking Tobacco: Every DayCigarettes0.530 Smokeless Tobacco: NeverAlcohol UseStandard Drinks/WeekCommentsYes0 (1 standard drink = 0.6 oz pure alcohol)sociallyChildcareAnswerDate RecordedChildcareUnknown 04/21/2019EmploymentAnswerDate PiwhvkjmKdqzdbcqseFwscsmq31/12/2019Purpose - Life AnswerDate RecordedPurpose and direction in dcswGljjxkp98/11/2021 CommentsNoSex and Gender InformationValueDate RecordedSex Assigned at BirthNot on fileLegal CwbUgtrub70/06/2015 11:32 AM EDTGender IdentityNot on fileSexual OrientationNot on file Last Filed Vital Signs Vital SignReadingTime TakenCommentsBlood Japqznsz466/90005/20/2022 8:11 AM EDT Ukjtr595505/20/2022 7:56 AM SJJKmjtqgiwhfi80.4 ??C (97.6 ??F)05/20/2022 6:15 AM EDTRespiratory Muuq052105/20/2022 7:56 AM EDTOxygen Aolkywzzsp58%05/20/2022 7:56 AM EDTInhaled Oxygen Concentration--Zafayu023.4 kg (250 lb)05/20/2022 6:15 AM NIQAjyktl606 cm (5' 3 )05/20/2022 6:15 AM EDTBody Mass Index44.29005/20/2022 6:15 AM EDT Plan of Treatment Health MaintenanceDue DateLast DoneCommentsDepression Luwmhvquh33/20/1975Tobacco Oejtzofai10/20/1975Adult BMI Lgxnimcim95/20/1981Pap Smear1984Zoster (Shingles) Vaccine (1 of 2)2013COVID-19 Vaccine ( - 2024- season) 504/, 03/07/2021, 02/07/2021Influenza Zrnkijx9107/11/2025 08/23/2021, 11/19/2020, 08/23/20199441Huepowznzbo19, 05/20/2022 DTaP,Tdap and Td Vaccines (2 - Td or Tdap)101/SV ( or age 60+ yrs) (1 - 1-dose 75+ series)2038 Medical Devices Not on file Procedures Procedure NamePriorityDate/TimeAssociated DiagnosisCommentsPROVATION COLONOSCOPY Purkqss9305/20/2022 6:19 AM EDT from Last 3 Months or Most Recently Relevant to Health Maintenance Results * Colonoscopy Report (05/20/2022 6:19 AM EDT)Specimen (Source)Anatomical Location / LateralityCollection Method / VolumeCollection TimeReceived Time Narrative SYSTEMGENERATED, DOCUMENTATION - 05/20/2022 6:19 AM EDT This order has been auto-finalized for image and report archival in PACs. *For full report details, please reach out to your physician. ??Effective 03/27/21 this image will be visible to you in MyChart.* Authorizing ProviderResult TypeResult StatusMichael E Grillis DOIMG OR IMG ORDERABLESFinal Result from Last 3 Months or Most Recently Relevant to Health Maintenance Insurance Care Teams Team MemberRelationshipSpecialtyStart DateEnd Date Mane Kearney MD PCP - GeneralFamily Medicine05/16/22
--- OUTSIDE RECORDS SUMMARY | 2025-10-07 13:52 | XMS_ITS | Clinical Summary ---
Author Organization [facility] Address [address] [place] [address] Care Team Providers Care Swim Coach Name Role Phone Mane Kearney MD Unavailable Mane Kearney MD Primary Care Provider Allergies Active AllergyReactionsCriticalityNoted SvivOxzcolrtJdjoywrcyljja27/22/2023 Medications MedicationSigDispense QuantityRefillsLast FilledStart DateEnd DateStatus albuterol (2.5 MG/3ML) 0.083% nebulizer solution Indications:Moderate COPD (chronic obstructive pulmonary disease) (HCC)Take 3 mL (2.5 mg) by nebulization every 6 (six) hours if needed for shortness of breath 75 mL 10/28/2023ctive albuterol HFA 90 mcg/act inhaler Indications:Chronic obstructive pulmonary disease, unspecified COPD type (HCC) Inhale 2 puffs every 6 (six) hours if needed for shortness of breath 18 g ctive losartan-hydroCHLOROthiazide (Hyzaar) 100-25 MG tablet Indications:Essential hypertension, benignTake 1 tablet by mouth Daily 90 tablet ctive amLODIPine (Norvasc) 5 MG tablet Indications:Essential hypertension, benignTake 1 tablet (5 mg) by mouth Daily 90 tablet ctive DULoxetine (Cymbalta) [address] capsule Indications:Degeneration of lumbar intervertebral discTake 1 capsule (60 mg) by mouth Daily 90 capsule ctive furosemide (Lasix) 40 MG tablet Indications:Lower extremity edemaTake 1 tablet (40 mg) by mouth Daily 90 tablet ctive zonisamide (Zonegran) 50 MG capsule Indications:Spinal stenosis, lumbar region, without neurogenic claudicationTake 1 capsule (50 mg) by mouth at bedtime 90 capsule 4Active cyclobenzaprine (Flexeril) 10 MG tablet Indications:Spinal stenosis, lumbar region, without neurogenic claudicationTAKE 1 TABLET BY MOUTH THREE TIMES DAILY NEEDED FOR MUSCLE SPASMS 90 tablet 5Active Umeclidinium-Vilanterol (Anoro Ellipta) 62.5-25 MCG/ACT aerosol powder Indications:Moderate COPD (chronic obstructive pulmonary disease) ([facility])INHALE 1 PUFF BY MOUTH ONCE DAILY 60 each 5Active phentermine (Adipex-P) 37.5 MG tablet Indications:Class 3 severe obesity due to excess calories with serious comorbidity and body mass index (BMI) of45.0 to 49.9 in adult ([facility])Take 1 tablet (37.5 mg) by mouth in the morning. Take before meals. 30 tablet 5Active HYDROcodone-acetaminophen ([place]) 5-325 MG tablet Take 1 tablet by mouth if needed for severe painActive Misc. Devices misc Indications:Pre-op examination,Internal derangement of left kneeDispense: Front Wheeled walker use 90 days. Ht: 265 Weight: 5'3 1 Units 5Active Active Problems ProblemNoted DateDiagnosed DateAnnual physical exam01/10/2025 Assessment & Plan (01/10/2025 11:05 AM EST): Due for labs. Discussed proper diet and regular aerobic exercise. Need aerobic exercise 5-6 days a week for 30 minutes at a time. Smaller portions and limit total calories. Colonoscopy every 10 years. Tetanus every 10 years. Advised not to smoke. Cigarette nertqh2901/10/2025 Assessment & Plan (01/10/2025 11:07 AM EST): Check low dose CT chest Injury of ulnar collateral ligament of wrist, right, initial zkerogaqp00/24/2024 Assessment & Plan (06/02/2024 10:34 AM EDT): Exam shows wrist strain. Treat with prednisone and ice PRN. Handout with ROM exercises to patient. If no improvement will need PT and or injection. Essential hypertension, dtyyfw9110/31/2023 Assessment & Plan (04/14/2025 11:08 AM EDT): [...] EST): BP controlled and monitor PRN. Leg edema10/31/2023 Assessment & Plan (04/14/2025 11:08 AM EDT): [...] throughout the day. COPD (chronic obstructive pulmonary disease)10/31/2023 Assessment & Plan (04/14/2025 11:08 AM EDT): [...] use albuterol PRN. Personal history of colonic jyjxzw3110/31/2023Obstructive sleep apnea (adult) (pediatric)10/31/2023Osteopenia of neck of right femur10/31/2023Vitamin D hgaepikyhe78/22/2023egenerative lumbar spinal vuxhuezx79/22/2023 Assessment & Plan (07/01/2024 10:53 AM EDT): [...] Scheduled with surgeon 12/09 and injectinos with painmanagement on hold until get plan from surgeon. Off work until 01/05/24. Assessment & Plan (10/31/2023 11:58 AM EST): Pain unchanged and continued weakness in legs. MRI with herniated disc and central canal narrowing.Refer to neurosurgeon for evaluation. Follow up with pain management. Off work until 01/05/24. Class 3 severe obesity due to excess calories with serious comorbidity and body mass index (BMI) of45.0 to 49.9 in adult10/31/2023 Assessment & Plan (04/14/2025 11:08 AM EDT): [...] If develop new or worsening symptomscontact office. Assessment & Plan (06/02/2024 10:35 AM EDT): Patient doing well with adipex and lost 3 pounds in first month. Tolerating well with only mild drymouth. Continue with dietary changes and less calories. Need to limit snacking and smaller portions. Continue healthier choices. Need regular aerobic exercise 30 minutes at a time 5-6 days a week. Refill for second month. OARRS reviewed. Continue meds as prescribed. If develop new or worsening sympt oms contact office. Assessment & Plan (04/16/2024 10:56 [...] as prescribed. If develop new or worsening symptom s contact office. Assessment & Plan (10/31/2023 11:59 [...] as prescribed. If develop new or worsening symptom s contact office. Lumbar disc herniation with zvyiwcfumntfh16/22/2023 Assessment & Plan (12/23/2023 1:51 PM EST): Pain unchanged and continued weakness in legs. Scheduled with pain pain management and will try injections. Extend off work until 03/08/24. Assessment & Plan (10/31/2023 11:58 AM EST): Pain unchanged and continued weakness in legs. MRI with herniated disc and central canal narrowing.Refer to neurosurgeon for evaluation. Follow up with pain management. Off work until 01/05/24. Resolved Problems ProblemNoted DateDiagnosed DateResolved DateAcute bronchitis due to other specified esulmfwjj20/01/2025 Assessment & Plan (08/04/2024 11:34 AM EDT): [...] if no better or worsecall for re-evaluation. Encounters DateTypeDepartmentCare ToscJagdkpqukdr90/18/2025 2:00 PM ESTOffice Visit [facility] [place] [address] Jonathan Peterson PA Pre-op examination (Primary Dx); Chronic obstructive pulmonary disease, unspecified COPD type (HCC); Internal derangement of left knee09/27/2025amboo flowsheet [facility] [place] [address] Jonathan Peterson PA 09/27/20254748Bcndfh30/29/2025 10:20 AM EDTAncillary Procedure [facility] [address] [place] [address] Acute pain of left knee09/07/2025 10:15 AM EDTOffice Visit [facility] [address] [place] [address] Jr. Tian Hayward, Internal derangement of left knee (Primary Dx); Acute pain of left knee09/07/2025amboo flowsheet [facility] [address] [place] [address] Jr. Tian Hayward, 09/07/2025Travelfrom Last 3 Months Family History Medical HistoryRelationNameCommentsArthritisFatherCoronary artery diseaseFather HypertensionFatherKidney diseaseFatherStrokeFatherRelationNameStatusComments Father Social History Tobacco UseTypesPacks/DayYears UsedDateSmoking Tobacco: Every [...] relatives?Once a week11/26/2023How often do you attend taoism or muslim services?Never 11/26/2023o you belong to any clubs or organizations such as taoism groups, unions, fraternal or athletic groups, or school groups?No11/26/2023How often do you attend meetings of the clubs or organizations you belong to?Never11/26/2023 Are you , , , , never , or living with a partner?Sdqplpn0811/26/2023UDIT-CAnswerDate RecordedQ1: How often do you have a [...] housing, medical care, and heating?Not very hard11/26/2023[facility] [place] of Occupational Health - Occupational Stress QuestionnaireAnswerDate [...] you engage in exercise at this level?Patient /17/2024Hunger Vital SignAnswerDate RecordedWithin the past 12 months, [...] InformationValueDate RecordedSex Assigned at BirthNot on fileLegal KfwHelgmz81/15/2023 6:46 PM EDTGender IdentityNot on fileSexual OrientationNot on file Last Filed Vital Signs Vital SignReadingTime TakenCommentsBlood Jcvwqhkk741/7404/14/2025 10:22 AM EDT Bdfys798204/14/2025 10:22 AM RATJhknzzamlfb22.3 ??C (97.3 ??F)04/14/2025 10:22 AM EDTRespiratory Xgsw885604/14/2025 10:22 AM EDTOxygen Sjnnrxhngz14%04/14/2025 10:22 AM EDTInhaled Oxygen Concentration--Lscjke833 kg (265 lb)09/27/2025 2:00 PM EST Zkemgh434 cm (5' 3 )09/27/2025 2:00 PM ESTBody Mass Index46.9409/27/2025 2:00 PM EST Plan of Treatment DateTypeDepartmentCare Team (Latest Contact Info)Myptnpkmywf05/24/2025 10:00 AM ESTOffice Visit [facility] [address] [place] [address] Jonathan Peterson PA [address] [place] [address] Health MaintenanceDue DateLast DoneCommentsCT Wlrrcpntbeli1963FIT-DNA 1965FIT1965FOBT1965 4879Xwzgsdieiizmk1963Pneumococcal Vaccine: Pediatrics (0 to 5 Years) and At-Risk Patients (6 to 64 Years) (1 of 2 - PCV)1982Pap Smear1984Cervical Cancer Ajpinsmae14/20/1993HPV/Cotest 10/29/19933391Fdeyrvpbd21/16/970178/, 3COVID-19 Vaccine ( season)504/, 03/07/2021, 02/07/2021Influenza Vaccine (#1) 501/, 08/21/2023, 08/23/2021, Additional history exists Byxqblzudqa47, 05/20/2022olorectal Cancer Olmwtdbpt72/11/2032 Procedures Procedure NamePriorityDate/TimeAssociated DiagnosisCommentsXR KNEE 1-2 VIEWS CKFJCfvjdgq2025 10:18 AM EDT Acute pain of left knee MM TOMOSYNTHESIS SCREENING BI06/25/2024 12:40 PM EDT from Last 3 Months or Most Recently Relevant to Health Maintenance Results * XR knee 1 or 2 views left (09/07/2025 10:18 AM EDT)Anatomical RegionLaterality ModalityLower Extremities, KneeLeftRadiographic ImagingSpecimen (Source) Anatomical Location / LateralityCollection Method / VolumeCollection Time Received Time Narrative 09/07/2025 10:48 AM EDT Imaging Result: X-rays AP and lateral of left knee show mild degenerative changes with mild flattening of the articular surfaces to the medial joint line with decreased joint space height to the medial joint line. ??Lateral joint line appeared to be well preserved there was subchondral sclerosis noted at the medial joint line and patellofemoral joint. ??There is no evidence of fracture or dislocation. ??Bony structures visualized appeared to be adequately ossified. Authorizing ProviderResult TypeResult StatusJr. Tian Hayward DOIMG XR PROCEDURESFinal Result * MM TOMOSYNTHESIS SCREENING BI (06/25/2024 12:40 PM EDT)Anatomical Region LateralityModalityOtherSpecimen (Source)Anatomical Location / Laterality Collection Method / VolumeCollection TimeReceived Time06/25/2024 12:40 PM EDT Narrative 06/25/2024 12:41 PM EDT [facility] ?[address] ? [place] [address] ? Mammography Report ? Signed ? Patient: JUARES,LAWRENCE D ? MR#: [id number] ?? : 1965 ?Acct:[id number] ?? Age/Sex: 58 / F ?ADM Date: 06/24/24 ?? Loc: MAMMO ? Attending Dr: Mane Kearney M.D. ? Ordering Physician: Mane Kearney M.D. ?Results: ? Date of Service: 06/24/24 ?Follow Up: ? Procedure(s): MM tomosynthesis screening BI ?? Accession Number(s): [id number] ? cc: Mane Kearney M.D. ? Patient Name: ? LAWRENCE JUARES ? MR#: [id number] ? : 1965 ? Exam Date: 06/24/2024 ?? Ordering Doctor: DR Mane Kearney . ? RADIOLOGY REPORT ? PROCEDURE: ? MM TOMOSYNTHESIS SCREENING BI ? COMPARISON: ? [facility] MAMM SCREEN 3D MANJIT CAD, 01/29/2023. ??MG MAMM SCREEN 3D MANJIT ?? CAD, 09/05/2021. ??MG MAMM SCREEN MANJIT W CAD, 08/31/2019. ??MG MAMM MANJIT DIAG W ?? CAD DIG, 10/10/2014. ? INDICATIONS: ? Screening ? Calculator Name ? NCI Breast Cancer Risk Assessment Tool ?? 5 Year Breast Cancer Risk ? 1.50% ?? Lifetime Breast Cancer Risk ? 7.40% ?? Personal Breast Cancer ?No ?? Personal Ovarian Cancer ? No ?? Treatments ? None ?? Family Cancers ? Grandmother-maternal with breast cancer at age ??65; ?? Grandfather-maternal with lung cancer at age ??63; Mother with rectal cancer ?? at age 75. ? LOCATION: ? [facility] ? BREAST COMPOSITION: ? There are scattered areas of fibroglandular density. ? FINDINGS: ? DIAGNOSTIC CATEGORY 1--NEGATIVE. ? RIGHT BREAST: ??No significant suspicious finding. ??No significant change has ?? occurred. ? LEFT BREAST: ??No significant suspicious finding. ??No significant change has ?? occurred. ? RECOMMENDATIONS: ? ROUTINE MAMMOGRAM AND CLINICAL EVALUATION IN 12 MONTHS. ? PLEASE NOTE: ??A NORMAL MAMMOGRAM DOES NOT EXCLUDE THE POSSIBILITY OF BREAST ?? CANCER. ??A CLINICALLY SUSPICIOUS PALPABLE LUMP SHOULD BE BIOPSIED. ? Dictated by: Juan David Parry M.D. on 06/25/2024 at 12:29 ? Approved by: Juan David Parry M.D. on 06/25/2024 at 12:40 ? Dictated By: ?Juan David Parry M.D. ? Signed By: ?06/25/24 1241 ? DD/ 1240 ? TD/TT: ? Almond Cutting Machine Tender: Procedure Note Radiology, Radiologist, MD - 06/25/2024 [place] [address] Mammography Report Signed Patient: LAWRENCE JUARES [facility]#: [id number] : 1965Acct:[id number] Age/Sex: 58 / FADM Date: 06/24/24 Loc: MAMMO Attending Dr: Mane Kearney M.D. Ordering Physician: Mane Kearney M.D.Results: Date of Service: 06/24/24Follow Up: Procedure(s): MM tomosynthesis screening BI Accession Number(s): [id number] cc: Mane Kearney M.D. Patient Name: LAWRENCE JUARES MR#: [id number] : 1965 Exam Date: 06/24/2024 Ordering Doctor: [...] with rectalcancer at age 73. LOCATION: [facility] BREAST COMPOSITION: There are scattered areas [...] M.D. Signed By:06/25/24 1241 DD/ 1240 TD/TT: Almond Cutting Machine Tender: Authorizing ProviderResult TypeResult StatusMarc Christel MDCLINISYNC IMAGING Final Result from Last 3 Months or Most Recently Relevant to Health Maintenance [place] [address] Care Teams Team MemberRelationshipSpecialtyStart DateEnd Date Mane Kearney MD [address] [place] [address] [facility] Mane Kearney MD [address] [place] [address] PCP - Generalmily Bkcfljve50/20/25
[2025-10-07 14:52] LABS: Anion Gap 10.6; Blood Urea Nitrogen 21.0 mg/dL (7.0-18.0); Calcium 9.3 mg/dL (8.5-10.1); Carbon Dioxide 33.2 mmol/L (21.0-32.0); Chloride 99 mmol/L (98-107); Estimated GFR (African America >60 (>=60 mL/min/1.73m^2); Estimated GFR (Non-African Ame >60 (>=60 mL/min/1.73m^2); Glucose 81 mg/dL (74-106); Sodium 140 mmol/L (136-145)
[2025-10-07 15:07] LABS: Potassium 2.8 mmol/L (3.5-5.1)
== END 2025-10-07 13:49 | disposition home or self-care (01) ==
LOC: LAB 13:49
PROVIDERS: PCP Family Medicine; Visit Provider Personal Emergency Response Attendant
DX: Z01.818 Encounter for other preprocedural examination (principal); Z01.810 Encounter for preprocedural cardiovascular examination; J44.9 Chronic obstructive pulmonary disease, unspecified
CPT/HCPCS: 36415; 80048; 93005

== ENCOUNTER 2025-10-11 11:49 | Outpatient (OUT) | payer BC, SELFPAY ==
--- OUTSIDE RECORDS SUMMARY | 2025-09-27 14:00 | XMS_ITS | Encounter Summary ---
Author Organization [facility] Address [address] [facility] [facility] [address] [place] [address] Care Team Providers Care Pile Operator Name Role Phone Mane Kearney MD Unavailable Mane Kearney MD Primary Care Provider [phone] Reason for Visit * ReasonCommentsPre-op Visit Encounter Details DateTypeDepartmentCare Team (Latest Contact Info)Tawyvxsiyex29/18/2025 2:00 PM ESTOffice Visit [facility] [address] [place] [address] Jonathan Peterson PA [address] [place] [address] Pre-op examination (Primary Dx); Chronic [...] relatives?Once a week11/26/2023How often do you attend scientologist or presybeterian services?Never 4Do you belong to any clubs or organizations such as scientologist groups, unions, fraWamba or athletic groups, or school groups?No11/26/2023How often do you attend meetings of the clubs or organizations you belong to?Never11/26/2023 Are you , , , , never , or living with a partner?Aakqoib1611/26/2023UDIT-CAnswerDate RecordedQ1: How often do you have a [...] food, housing, medical care, and heating?Not very hard11/26/2023Finhighland ridge hospital [place] of Occupational Health - Occupational Stress QuestionnaireAnswerDate [...] you engage in exercise at this level?Patient frveqiog29/17/2024Hunger Vital SignAnswerDate RecordedWithin the past 12 months, [...] InformationValueDate RecordedSex Assigned at BirthNot on fileLegal ShpLelyub51/15/2023 6:46 PM EDTGender IdentityNot on fileSexual OrientationNot on filedocumented as of this encounter Last Filed Vital Signs Vital SignReadingTime TakenCommentsBlood Pressure--Pulse--Temperature-- Respiratory Rate--Oxygen Saturation--Inhaled Oxygen Concentration--Rgfnoj057 kg (265 lb)09/27/2025 2:00 PM KRDCmajxm982 cm (5' 3 )09/27/2025 2:00 PM ESTBody [...] furosemide (LASIX) 40 mg, Oral, Daily HYDROcodone-acetaminophen ([place]) 5-325 MG tablet 1 tablet, As needed [...] SURGERY INSTRUCTIONS September LAB[facility] + [facility] AT [facility] PRE [facility]ERT SENT WALKER TO [facility] [place] Follow up in about 5 weeks (around 11/02/2025) for Post-Op November 02 @ 10:00 with [facility] [place]. [1] Past Medical History: Diagnosis Date Benign [...] Plan of Treatment DateTypeDepartmentCare Team (Latest Contact Info)Pezcolkpkut66/24/2025 10:00 AM ESTOffice Visit [facility] [address] [place] [address] Jonathan Peterson PA [address] [place] [address] NameTypePriorityAssociated DiagnosesOrder ScheduleECG 12 leadECGRoutine [...] Mane Kearney MD [address] [place] [address] PCP - Caspar 01/09/24 Mane Kearney MD [address] [place] [address] PCP - GeneralFamily Rjnemhmq50/20/25documented as of this encounter
--- OUTSIDE RECORDS SUMMARY | 2025-10-11 11:54 | XMS_ITS | Encounter Summary ---
Author Organization [facility] Address [address] [facility] [place] [address] Care Team Providers Care Bunch Breaker Name Role Phone Mane Kearney MD Unavailable Mane Kearney MD Primary Care Provider [phone] Encounter Details DateTypeDepartmentCare Team (Latest Contact Info)Icmnjxuqcca85/30/2025Results [facility]-Up [facility] [address] [place] [address] Jonathan Peterson PA [address] [place] [address] ECG 12-LEAD Social History Tobacco UseTypesPacks/DayYears UsedDateSmoking Tobacco: Every [...] relatives?Once a week11/26/2023How often do you attend rastafarian or mandaeism services?Never11/26/2023o you belong to any clubs or organizations such as rastafarian groups, unions, fraternal or athletic groups, or school groups?No 11/26/2023How often do you attend meetings of the clubs or organizations you belong to?Never11/26/2023re you , , , , never , or living with a partner?Kekoedw1911/26/2023UDIT-CAnswerDate RecordedQ1: How often do you have a [...] food, housing, medical care, and heating?Not very hard11/26/2023[facility] [place] of Occupational Health - Occupational Stress QuestionnaireAnswerDate [...] you engage in exercise at this level?Patient ehfhftcx54/17/2024Hunger Vital SignAnswerDate RecordedWithin the past 12 months, [...] Plan of Treatment DateTypeDepartmentCare Team (Latest Contact Info)Nadrwgqcthu91/24/2025 10:00 AM ESTOffice Visit [facility] [place] [facility] [address] [place] [address] Jonathan Peterson PA [address] [place] [address] documented as of this encounter Visit Diagnoses Not on filedocumented in this encounter Care Teams Team MemberRelationshipSpecialtyStart DateEnd Date Mane Kearney MD [address] [place] [address] PCP - [facility]01/09/24 Mane Kearney MD [address] [place] [address] PCP - GeneralFamily Xtqoofbn03/20/25documented as of this encounter
--- OUTSIDE RECORDS SUMMARY | 2025-10-11 11:54 | XMS_ITS | Encounter Summary ---
Author Organization [facility] Address [address] [facility] [place] [address] Care Team Providers Care Administrator Pesticide Name Role Phone Mane Kearney MD Unavailable Mane Kearney MD Primary Care Provider [phone] Encounter Details DateTypeDepartmentCare Team (Latest Contact Info)Qudkuqsemwf10/28/2025Telephone [facility] [address] [place] [address] Jonathan Peterson, ESTELA [address] [place] [address] Social History Tobacco UseTypesPacks/DayYears UsedDateSmoking [...] relatives?Once a week11/26/2023How often do you attend orthodoxy or islam services?Never11/26/2023o you belong to any clubs or organizations such as orthodoxy groups, unions, fraternal or athletic groups, or school groups?No 11/26/2023How often do you attend meetings of the clubs or organizations you belong to?Never11/26/2023re you , , , , never , or living with a partner?Jaippva2611/26/2023UDIT-CAnswerDate RecordedQ1: How often do you have a [...] food, housing, medical care, and heating?Not very hard11/26/2023[facility] [place] of Occupational Health - Occupational Stress QuestionnaireAnswerDate [...] you engage in exercise at this level?Patient qcpjuruw20/17/2024Hunger Vital SignAnswerDate RecordedWithin the past 12 months, [...] on file documented as of this encounter Miscellaneous Notes * Addendum Note - Maxi Wilhelm MA - 10/10/2025 12:48 PM ESTAddended by: MAXI WILHELM on: 10/10/2025 12:48 PM Modules accepted: Orders * Telephone Encounter - Maxi Wilhelm MA - 10/10/2025 12:48 PM EST Can you please let Jazz know that I just faxed it over to [facility]? Thanks! * Telephone Encounter - Kimberly Fried - 10/10/2025 11:23 AM EST Patient called to see if there was an order sent over to [place] to have her Potassium rechecked Please advise * Telephone Encounter - ESTELA Redman - 10/07/2025 3:22 PM EST Spoke with pt.. No symptoms currently with low potassium. Recommend she take her 2 of her 20 mg Potassium pills ( 40 MG) daily for 4-5 days pending repeat.. focus on potassium rich foods. Denies diarrhea. Will go to ER if symptoms worsen.. Maxi, Can we repeat her potassium on Friday/ Friday for a recheck.. Diagnosis hypokalemia Pt has potassium pills already, but only takes prn with lasix use.. thanks documented in this encounter Plan of Treatment DateTypeDepartmentCare Team (Latest Contact Info)Xdmmwytrtrw36/24/2025 10:00 AM ESTOffice Visit [facility] [address] [place] [address] Jonathan Peterson PA [address] [place] [address] NameTypePriorityAssociated DiagnosesOrder SchedulePotassiumLabRoutine Hypokalemia Pre-op examination Expected: 10/10/2025 (Approximate), Expires: 10/10/2026documented as of this encounter Visit Diagnoses Diagnosis Hypokalemia- Primary Hypopotassemia Pre-op examination documented in this encounter Care Teams Team MemberRelationshipSpecialtyStart DateEnd Date Mane Kearney MD [address] [place] [address] PCP - [facility]01/09/24 Mane Kearney MD [address] [place] [address] PCP - GeneralFamily Skobvfpi97/20/25documented as of this encounter
--- OUTSIDE RECORDS SUMMARY | 2025-10-11 11:54 | XMS_ITS | Encounter Summary ---
Author Organization [facility] Address [address] [place] [address] Care Team Providers Care Building Operator Name Role Phone Mane Kearney MD Unavailable Mane Kearney MD Primary Care Provider [phone] Encounter Details DateTypeDepartmentCare Team (Latest Contact Info)Yspukaihbmh80/18/2025Travel Social History Tobacco UseTypesPacks/DayYears UsedDateSmoking Tobacco: Every [...] relatives?Once a week11/26/2023How often do you attend shinto or sikh services?Never11/26/2023o you belong to any clubs or organizations such as shinto groups, unions, fraternal or athletic groups, or school groups?No 11/26/2023How often do you attend meetings of the clubs or organizations you belong to?Never11/26/2023re you , , , , never , or living with a partner?Ghqlqlb0111/26/2023UDIT-CAnswerDate RecordedQ1: How often do you have a [...] food, housing, medical care, and heating?Not very hard11/26/2023[facility] [place] of Occupational Health - Occupational Stress QuestionnaireAnswerDate [...] you engage in exercise at this level?Patient znbdofvg39/17/2024Hunger Vital SignAnswerDate RecordedWithin the past 12 months, [...] steady place to sleep or slept in b[place]oelter (including now)?No4CommentsUnknownSex and Gender InformationValueDate RecordedSex Assigned at BirthNot on fileLegal SexFemale 01/22/2023 6:46 PM EDTGender IdentityNot on fileSexual OrientationNot on file documented as of this encounter Plan of Treatment DateTypeDepartmentCare Team (Latest Contact Info)Kvmmutvkyxm46/24/2025 10:00 AM ESTOffice Visit [facility] [address] [place] [address] Jonathan Peterson PA [address] [place] [address] documented as of this encounter Visit Diagnoses Not on filedocumented in this encounter Care Teams Team MemberRelationshipSpecialtyStart DateEnd Date Mane Kearney MD [address] [place] [address] PCP - [employer] [employer]01/09/24 Mane Kearney MD [address] [place] [place] [address] PCP - GeneralFamily Fzpaomwj87/20/25documented as of this encounter
--- OUTSIDE RECORDS SUMMARY | 2025-10-11 11:54 | XMS_ITS | Encounter Summary ---
Author Organization [facility] Address [address] [facility] [place] [address] Care Team Providers Care Communication Specialist Name Role Phone Mane Kearney MD Unavailable Mane Kearney MD Primary Care Provider [phone] Encounter Details DateTypeDepartmentCare Team (Latest Contact Info)Drkhaapjecp42/28/2025Clinisync Result Encounter [facility] External Department Unsolicited Jonathan Peterson, ESTELA [address] [place] [address] Social History Tobacco UseTypesPacks/DayYears UsedDateSmoking [...] relatives?Once a week11/26/2023How often do you attend baptism or rastafari services?Never11/26/2023o you belong to any clubs or organizations such as baptism groups, unions, fraternal or athletic groups, or school groups?No 11/26/2023How often do you attend meetings of the clubs or organizations you belong to?Never11/26/2023re you , , , , never , or living with a partner?Mvigjxb6711/26/2023UDIT-CAnswerDate RecordedQ1: How often do you have a [...] food, housing, medical care, and heating?Not very hard11/26/2023Finmountainstar healthcare [place] of Occupational Health - Occupational Stress QuestionnaireAnswerDate [...] you engage in exercise at this level?Patient txxnekof55/17/2024Hunger Vital SignAnswerDate RecordedWithin the past 12 months, [...] Plan of Treatment DateTypeDepartmentCare Team (Latest Contact Info)Hbtnnwwkyux31/24/2025 10:00 AM ESTOffice Visit [facility] [address] [place] [address] Jonathan Peterson PA [address] [place] [address] documented as of this encounter Procedures Procedure NamePriorityDate/TimeAssociated DiagnosisCommentsALL BASIC METABOLIC UOTJCVulwtcg81/28/2025 2:16 PM EST documented in this encounter Results * (ABNORMAL) ALL BASIC METABOLIC PANEL (10/07/2025 2:16 PM EST)ComponentValueRef RangeTest MethodAnalysis TimePerformed AtPathologist NktoobewtDTOCEX430698 - 145 mmol/LTBHPOTASSIUM2.8(LL)3.5 - 5.1 mmol/LTBHComment:RESULTS CALLED TO PEPE WALSHIDE9998 - 107 mmol/LTBHCARBON JQUDRQK84.2(H)21.0 - 32.0 mmol/L TBHANION GAP10.4JMVTFBLAMD4352 - 106 mg/dLTBHBLOOD UREA VTJOWGBD63.0(H)7.0 - 18.0 mg/dLTBHCREATININE0.910.55 - 1.02 mg/dLTBHTBH EGFR-AF [place]>60>=60 mL/min/1.73m 2TBHTBH EGFR-NON AF [place]>60>=60 mL/min/1.73m 2TBHBUN CREATININE RATIO23.2WVLOAYPORI5.38.5 - 10.1 mg/dLTBHSpecimen (Source) Anatomical Location / LateralityCollection Method / VolumeCollection Time Received Time10/07/2025 2:16 PM EST10/07/2025 2:17 PM EST Narrative [facility] - 10/07/2025 3:07 PM EST Authorizing ProviderResult TypeResult StatusMatthealisha Peterson PACLINISYNCFinal ResultPerforming OrganizationAddressCity/State/ZIP CodePhone Number CLINISYNC TB documented in this encounter Visit Diagnoses Not on filedocumented in this encounter Care Teams Team MemberRelationshipSpecialtyStart DateEnd Date Mane Kearney MD [address] [place] [address] PCP - Madeline Portillo01/09/24 Mane Kearney MD [address] [place] [address] PCP - GeneralFamily Assusego11/20/25documented as of this encounter
--- OUTSIDE RECORDS SUMMARY | 2025-10-11 11:54 | XMS_ITS | Clinical Summary ---
Author Organization [facility] tem Address [facility] [id number] [address] [place] [address] Care Team Providers Care Business Development Intern Name Role Phone Mane Kearney MD Primary Care Provider [phone] Allergies Active AllergyReactionsCriticalityNoted DateCommentsCiprofloxacinAnaphylaxisHigh 02/28/2022 Medications MedicationSigDispense [...] = 0.6 oz pure alcohol)sociallyChildcareAnswerDate RecordedChildcareUnknown 04/21/2019EmploymentAnswerDate RpypjawsDfnmyvbcpuXfoncwd19/12/2019Purpose - Life AnswerDate RecordedPurpose and direction in lmjhEirawlj19/11/2021 CommentsNoSex and Gender InformationValueDate RecordedSex Assigned at BirthNot on fileLegal YzlDqfyhd90/06/2015 11:32 AM EDTGender IdentityNot on fileSexual OrientationNot on file Last Filed Vital Signs Vital SignReadingTime TakenCommentsBlood Oklfgxxs080/90005/20/2022 8:11 AM EDT Flfkq476705/20/2022 7:56 AM NCSAtszmkcxryl83.4 ??C (97.6 ??F)05/20/2022 6:15 AM EDTRespiratory Wgkh718505/20/2022 7:56 AM EDTOxygen Tmybqaemhw48%05/20/2022 7:56 AM EDTInhaled Oxygen Concentration--Kznphv559.4 kg (250 lb)05/20/2022 6:15 AM HAQOxqisf771 cm (5' 3 )05/20/2022 6:15 AM EDTBody Mass Index44.29005/20/2022 6:15 AM EDT Plan of Treatment Health MaintenanceDue DateLast DoneCommentsDepression Oahdjcqkn07/20/1975Tobacco Nukdonkmf19/20/1975Adult BMI Viyakmgvg20/20/1981Pap Smear1984Zoster (Shingles) Vaccine (1 of 2)2013COVID-19 Vaccine ( - 2024- season) 504/, 03/07/2021, 02/07/2021Influenza Jpmmuay6807/11/2025 08/23/2021, 11/19/2020, 08/23/20197508Afflusebgey04, 05/20/2022 DTaP,Tdap and Td Vaccines (2 - Td or Tdap)101/SV ( or age 60+ yrs) (1 - 1-dose 75+ series)2038 Medical Devices Not on file Procedures Procedure NamePriorityDate/TimeAssociated DiagnosisCommentsPROVATION COLONOSCOPY Dufmcib4805/20/2022 6:19 AM EDT from Last 3 Months [...]
--- OUTSIDE RECORDS SUMMARY | 2025-10-11 11:54 | XMS_ITS | Clinical Summary ---
Author Organization [facility] Address [address] [place] [address] Care Team Providers Care Firefighter Marine Name Role Phone Mane Kearney MD Unavailable Mane Kearney MD Primary Care Provider [phone] Allergies Active AllergyReactionsCriticalityNoted FqwbHutztxgkKlnofvecngily99/22/2023 Medications MedicationSigDispense QuantityRefillsLast FilledStart DateEnd DateStatus albuterol [...] powder Indications:Moderate COPD (chronic obstructive pulmonary disease) ([facility])INHALE 1 PUFF BY MOUTH ONCE DAILY 60 each 5Active phentermine (Adipex-P) 37.5 MG tablet Indications:Class 3 severe obesity due to excess calories with serious comorbidity and body mass index (BMI) of45.0 to 49.9 in adult ([facility])Take 1 tablet (37.5 mg) by mouth in the morning. Take before meals. 30 tablet 5Active HYDROcodone-acetaminophen ([place]) 5-325 MG tablet Take 1 tablet by [...] 10 years. Advised not to smoke. Cigarette pezfnj0101/10/2025 Assessment & Plan (01/10/2025 11:07 AM EST): Check low dose CT chest Injury of ulnar collateral ligament of wrist, right, initial vmsurvivf48/24/2024 Assessment & Plan (06/02/2024 10:34 AM EDT): Exam shows wrist strain. Treat with prednisone and ice PRN. Handout with ROM exercises to patient. If no improvement will need PT and or injection. Essential hypertension, bqfntw0910/31/2023 Assessment & Plan (04/14/2025 11:08 AM EDT): [...] use albuterol PRN. Personal history of colonic ijjfhi5010/31/2023Obstructive sleep apnea (adult) (pediatric)10/31/2023Osteopenia of neck of right femur10/31/2023Vitamin D vvruooscai32/22/2023egenerative lumbar spinal /22/2023 Assessment & Plan (07/01/2024 10:53 AM EDT): [...] s contact office. Lumbar disc herniation with qzdxhhlsgdnig75/22/2023 Assessment & Plan (12/23/2023 1:51 PM EST): [...] DateResolved DateAcute bronchitis due to other specified wgamxasmb88/01/2025 Assessment & Plan (08/04/2024 11:34 AM EDT): [...] better or worsecall for re-evaluation. Encounters DateTypeDepartmentCare BkqnGnnvrjafilt99/30/2025Results Follow-Up [facility] [address] [place] [address] Jonathan Peterson PA ECG 12-LEAD10/07/2025linisync Result Encounter [facility] External Department Unsolicited Jonathan Peterson PA 10/07/2025Results [facility] [address] [place] [address] Jonathan Peterson PA ALL BASIC METABOLIC PANEL10/07/2025Telephone [facility] [address] [place] [address] Jonathan Peterson PA 10/07/2025linisync Result Encounter [facility] External Department Unsolicited Jonathan Peterson PA 09/27/2025 2:00 PM ESTOffice Visit [facility] [address] [place] [address] Jonathan Peterson PA Pre-op examination (Primary Dx); Chronic obstructive pulmonary disease, unspecified COPD type (HCC); Internal derangement of left knee09/27/2025amb flowsheet [facility] [address] [facility] [address] Jonathan Peterson PA 09/27/20252556Fgumil05/29/2025 10:20 AM EDTAncillary Procedure [facility] [address] [facility] [address] [place] [phone] Acute pain of left knee09/07/2025 10:15 AM EDTOffice Visit [facility] [address] [facility] [address] [place] [address] Jr. Laurel Hayward, Internal derangement of left knee (Primary Dx); Acute pain of left knee09/07/2025amboo flowsheet [facility] [address] [facility] [address] [place] [address] Jr. Laurel Hayward, 09/07/2025Travelfrom Last 3 Months Family History [...] relatives?Once a week11/26/2023How often do you attend gnosticism or restorationist services?Never 4Do you belong to any clubs or organizations such as gnosticism groups, unions, fraternal or athletic groups, or school groups?No11/26/2023How often do you attend meetings of the clubs or organizations you belong to?Never11/26/2023 Are you , , , , never , or living with a partner?Tyrhhyt0811/26/2023UDIT-CAnswerDate RecordedQ1: How often do you have a [...] food, housing, medical care, and heating?Not very hard11/26/2023Finlake[facility] hospital [place] of Occupational Health - Occupational Stress QuestionnaireAnswerDate [...] you engage in exercise at this level?Patient omsyxorl25/17/2024Hunger Vital SignAnswerDate RecordedWithin the past 12 months, [...] steady place to sleep or slept in [facility] (including now)?No11/26/2023 CommentsUnknownSex and Gender InformationValueDate RecordedSex Assigned at BirthNot on fileLegal YinPxkfux41/15/2023 6:46 PM EDTGender IdentityNot on fileSexual OrientationNot on file Last Filed Vital Signs Vital SignReadingTime TakenCommentsBlood Syfcnqrj725/7404/14/2025 10:22 AM EDT Dqere701104/14/2025 10:22 AM BQQDiinpqxxbun43.3 ??C (97.3 ??F)04/14/2025 10:22 AM EDTRespiratory Kyrv381404/14/2025 10:22 AM EDTOxygen Wvlwpqmtbg89%04/14/2025 10:22 AM EDTInhaled Oxygen Concentration--Purnkr026 kg (265 lb)09/27/2025 2:00 PM EST Irclti040 cm (5' 3 )09/27/2025 2:00 PM ESTBody Mass Index46.9409/27/2025 2:00 PM EST Plan of Treatment DateTypeDepartmentCare Team (Latest Contact Info)Towcjxmckry57/24/2025 10:00 AM ESTOffice Visit [facility] [address] [place] [address] Jonathan Peterson PA [address] [place] [address] Health MaintenanceDue DateLast DoneCommentsCT Lwifdbwsoxvk1963FIT-DNA 1965FIT1965FOBT1965 7414Aikzmguklbegq1963Pneumococcal Vaccine: Pediatrics (0 to 5 Years) and At-Risk Patients (6 to 64 Years) (1 of 2 - PCV)1982Pap Smear1984Cervical Cancer Hrkaosukh54/20/1993HPV/Cotest 10/29/19932889Jzxtywzfx22/16/202508/, 3COVID-19 Vaccine ( season)/, 03/07/2021, 02/07/2021Influenza Vaccine (#1) 501/, 08/21/2023, 08/23/2021, Additional history exists Bvotoyldsdm08/11/203207/09/2022, 2Colorectal Cancer Hgvjuvhlp83/11/2032 Procedures Procedure NamePriorityDate/TimeAssociated DiagnosisCommentsALL BASIC METABOLIC MAJOPZjdects81/28/2025 2:16 PM EST ECG 12-LEAD10/07/2025 2:09 PM EST XR KNEE 1-2 VIEWS ZXGZXdxkjte05/29/2025 10:18 AM EDT Acute pain of left knee MM TOMOSYNTHESIS SCREENING BI06/25/2024 12:40 PM EDT from Last 3 Months or Most Recently Relevant to Health Maintenance Results * (ABNORMAL) ALL BASIC METABOLIC PANEL (10/07/2025 2:16 PM EST)ComponentValueRef RangeTest MethodAnalysis TimePerformed AtPathologist PsqqijnsgJRFFKS501947 - 145 mmol/LTBHPOTASSIUM2.8(LL)3.5 - 5.1 mmol/LTBHComment:RESULTS CALLED TO SAHIL PETERSON, QMTDBPGWEU5503 - 107 mmol/LTBHCARBON VPNRGDI79.2(H)21.0 - 32.0 mmol/L TBHANION GAP10.3VSNDGPMHTV9180 - 106 mg/dLTBHBLOOD UREA LIBPJUYD77.0(H)7.0 - 18.0 mg/dLTBHCREATININE0.910.55 - 1.02 mg/dLTBHTBH EGFR-AF [place]>60>=60 mL/min/1.73m 2TBHTBH EGFR-NON AF [place]>60>=60 mL/min/1.73m 2TBHBUN CREATININE RATIO23.9ZUZOFZQOQA1.38.5 - 10.1 mg/dLTBHSpecimen (Source) Anatomical Location / LateralityCollection Method / VolumeCollection Time Received Time10/07/2025 2:16 PM EST10/07/2025 2:17 PM EST Narrative [facility]IN[facility] - 10/07/2025 3:07 PM EST Authorizing ProviderResult TypeResult StatusMattlisa Peterson PACLINISYNCFinal ResultPerforming OrganizationAddressCity/State/ZIP CodePhone Number [facility] * ECG 12-LEAD (10/07/2025 2:09 PM EST)Anatomical RegionLateralityModalityOther Specimen (Source)Anatomical Location / LateralityCollection Method / Volume Collection TimeReceived Time10/07/2025 2:09 PM EST Narrative 10/07/2025 6:29 PM EST [facility] ?[address] ? [place] [address] ? Electrocardiograph Report ? Signed ? Patient: JUAN C JUARESA Marlyn ? MR#: [id number] ?? : 1965 ?Acct:[id number] ?? Age/Sex: 59 / F ?ADM Date: 10/07/ ?? Loc: LAB ? Attending Dr: Jonathan Peterson PA ? Ordering Physician: Jonathan Peterson ?? Date of Service: 11/28/25 ?? Procedure(s): ECG 12 lead ?? Accession Number(s): [id number] ? cc: ?[facility] ? Test Date: ?2025-10-07 ?? Pat Name: ? LAWRENCE JUARES ?Department: ? Room: ? - ?? Gender: ? Female ? Manager Technical Training: ? : ?1965 ? Requested By: [id number] ?? Order Number: [id number] ?Reading MD: ?? LAUREL ??Tere SILVERIO ? Measurements ?? Intervals ?[place] ? Rate: ? 85 ? P: ?72 ?? NE: ? 187 ?QRS: ?89 ?? QRSD: ? 106 ?T: ?68 ?? QT: ? 359 ? QTc: ?429 ? Interpretive Statements ?? SINUS RHYTHM ?? INCOMPLETE RIGHT BUNDLE BRANCH BLOCK [90+ ms QRS DURATION, TERMINAL R IN ?? V1/V2, ?? 40+ ms S IN I/aVL/V4/V5/V6] ?? Borderline ECG ?? Compared to ECG 11/10/2022 13:49:07 ?? Right-axis deviation no longer present ?? Electronically Signed On 10-07-2025 18:29:28 EST by LAUREL ??Tere SILVERIO ? Dictated By: ?LAUREL SILVERIO ? Signed By: ?/28/25 1829 ?10/07/25 1829 ? DD/ 1409 ? TD/TT: ? Community Service Manager: Procedure Note Radiology, Radiologist, MD - 10/07/2025 [place] [address] Electrocardiograph Report Signed Patient: LAWRENCE JUARES DMR#: [id number] : 1965Acct:[id number] Age/Sex: 59 / FADM Date: 10/07/25 Loc: LAB Attending Dr: Jonathan PALMER Ordering Physician: Jonathan Peterson Date of Service: 10/07/25 Procedure(s): ECG 12 lead Accession Number(s): [id number] cc: [facility] Test Date: 2025-10-07 Pat Name: LAWRENCE JUARES Department: Room: - Gender: Female Manager Technical Training: : 1965 Requested By: [id number] Order Number: [id number] Yamilet MD: LAUREL SILVERIO M.D. Measurements Intervals [place] Rate: 85 P: 72 NE: 187 QRS: 89 QRSD: 106 T: 68 QT: 359 QTc: 429 Interpretive Statements SINUS RHYTHM INCOMPLETE RIGHT BUNDLE BRANCH BLOCK [90+ ms QRS DURATION, TERMINAL R IN V1/V2, 40+ ms S IN I/aVL/V4/V5/V6] Borderline ECG Compared to ECG 11/10/2022 13:49:07 Right-axis deviation no longer present Electronically Signed On 10-07-2025 18:29:28 EST by LAUREL SILVERIO M.D. Dictated By: LAUREL SILVERIO Signed By:10/07/25 18210/07/25 182 DD/ 1409 TD/TT: Community Service Manager: Authorizing ProviderResult TypeResult StatusMaclyde Peterson [facility] Final Result * XR knee 1 or 2 views [...] be adequately ossified. Authorizing ProviderResult TypeResult StatusJr. Laurel Hayward DOI XR PROCEDURESFinal Result * MM TOMOSYNTHESIS SCREENING BI (06/25/2024 12:40 PM EDT)Anatomical Region LateralityModalityOtherSpecimen (Source)Anatomical Location / Laterality Collection Method / VolumeCollection TimeReceived Time06/25/2024 12:40 PM EDT Narrative 06/25/2024 12:41 PM EDT [facility] ?[address] ? [place] [address] ? Mammography Report ? Signed ? Patient: LAWRENCE JUARES ? MR#: [id number] ?? : 1965 ?Acct:[id number] ?? Age/Sex: 58 / F ?ADM Date: 15/24 ?? Loc: MAMMO ? Attending Dr: Mane Kearney M.D. ? Ordering Physician: Mane Kearney M.D. ?Results: ? Date of Service: 06/24/24 ?Follow Up: ? Procedure(s): MM tomosynthesis screening BI ?? Accession Number(s): [id number] ? cc: Mane Kearney M.D. ? Patient Name: ? LAWRENCE JUARES ? MR#: [id number] ? : 1965 ? Exam Date: 06/24/2024 [...] at age 73. ? LOCATION: ? [facility] ? BREAST COMPOSITION: ? There are scattered [...] 1241 ? DD/ 1240 ? TD/TT: ? Community Service Manager: Procedure Note Radiology, Radiologist, MD - 06/25/2024 [place] [address] Mammography Report Signed Patient: LAWRENCE JUARES DMR#: [id number] : 1965Acct:[id number] Age/Sex: 58 / FADM Date: 06/24/24 Loc: MAMMO Attending Dr: Mane Kearney M.D. Ordering Physician: Mane Kearney M.D.Results: Date of Service: 06/24/24Follow Up: Procedure(s): MM tomosynthesis screening BI Accession Number(s): [id number] cc: Mane Kearney M.D. Patient Name: LAWRENCE JUARES MR#: [id number] : 1965 Exam Date: 06/24/2024 Ordering Doctor: [...] with rectalcancer at age 73. LOCATION: [facility] BREAST COMPOSITION: There are scattered areas of [...] M.D. Signed By:06/25/24 1241 DD/ 1240 TD/TT: Community Service Manager: Authorizing ProviderResult TypeResult StatusMarc Nadrocior MDCLINISYNC IMAGING Final Result from Last 3 Months or Most Recently Relevant to Health Maintenance Insurance Care Teams Team MemberRelationshipSpecialtyStart DateEnd Date Mane Kearney MD [address] [place] [address] [facility] Mane Kearney MD [address] [place] [address] [facility]08/29/25
--- OUTSIDE RECORDS SUMMARY | 2025-10-11 11:54 | XMS_ITS | Encounter Summary ---
Author Organization [facility] Address [address] [facility] [place] [address] Care Team Providers Care Hole Digger Truck Driver Name Role Phone Mane Kearney MD Unavailable Mane Kearney MD Primary Care Provider [phone] Encounter Details DateTypeDepartmentCare Team (Latest Contact Info)Ezutuqplgfi52/18/2025amboo flowsheet [facility] [address] [place] [address] Jonathan Peterson PA [address] [place] [address] Social History Tobacco UseTypesPacks/DayYears UsedDateSmoking [...] relatives?Once a week11/26/2023How often do you attend christianity or buddhism services?Never11/26/2023o you belong to any clubs or organizations such as christianity groups, unions, fraternal or athletic groups, or school groups?No 11/26/2023How often do you attend meetings of the clubs or organizations you belong to?Never11/26/2023re you , , , , never , or living with a partner?Ovznqpj3211/26/2023UDIT-CAnswerDate RecordedQ1: How often do you have a [...] food, housing, medical care, and heating?Not very hard11/26/2023Finblue mountain hospital, inc[facility] [place] of Occupational Health - Occupational Stress QuestionnaireAnswerDate [...] you engage in exercise at this level?Patient akcfrsef20/17/2024Hunger Vital SignAnswerDate RecordedWithin the past 12 months, [...] Plan of Treatment DateTypeDepartmentCare Team (Latest Contact Info)Mulmshrzhyk12/24/2025 10:00 AM ESTOffice Visit [facility] [address] [place] [address] Jonathan Peterson PA [address] [place] [address] documented as of this encounter Visit Diagnoses Not on filedocumented in this encounter Care Teams Team MemberRelationshipSpecialtyStart DateEnd Date Mane Kearney MD [address] [place] [address] PCP - Madeline Portillo01/09/24 Mane Kearney MD [address] [place] [address] PCP - GeneralFamily Pcjckbuv40/20/25documented as of this encounter
--- OUTSIDE RECORDS SUMMARY | 2025-10-11 11:54 | XMS_ITS | Encounter Summary ---
Author Organization [facility] Address [address] [facility] [place] [address] Care Team Providers Care Tube Puller Name Role Phone Mane Kearney MD Unavailable Mane Kearney MD Primary Care Provider [phone] Encounter Details DateTypeDepartmentCare Team (Latest Contact Info)Ytkxbdncoue10/28/2025Results [facility] [address] [place] [address] Jonathan Peterson PA [address] [place] [address] ALL BASIC METABOLIC PANEL Social History Tobacco UseTypesPacks/DayYears UsedDateSmoking Tobacco: Every [...] relatives?Once a week11/26/2023How often do you attend zoroastrianism or alevism services?Never11/26/2023o you belong to any clubs or organizations such as zoroastrianism groups, unions, fraternal or athletic groups, or school groups?No 11/26/2023How often do you attend meetings of the clubs or organizations you belong to?Never11/26/2023re you , , , , never , or living with a partner?Zhvkzeg3611/26/2023UDIT-CAnswerDate RecordedQ1: How often do you have a [...] food, housing, medical care, and heating?Not very hard11/26/2023Finjordan [facility] [place] of Occupational Health - Occupational Stress QuestionnaireAnswerDate [...] you engage in exercise at this level?Patient suxmwuno93/17/2024Hunger Vital SignAnswerDate RecordedWithin the past 12 months, [...] Plan of Treatment DateTypeDepartmentCare Team (Latest Contact Info)Ryjzcszyinz34/24/2025 10:00 AM ESTOffice Visit [facility] [address] [place] [address] Jonathan Peterson PA [address] [place] [address] documented as of this encounter Visit Diagnoses Not on filedocumented in this encounter Care Teams Team MemberRelationshipSpecialtyStart DateEnd Date Mane Kearney MD [address] [place] [address] PCP - [facility]01/09/24 Mane Kearney MD [address] [place] [address] PCP - GeneralFamily Snzinlss35/20/25documented as of this encounter
--- OUTSIDE RECORDS SUMMARY | 2025-10-11 11:54 | XMS_ITS | Encounter Summary ---
Author Organization [facility] Address [address] [place] [address] Care Team Providers Care Switch Foreman Name Role Phone Mane Kearney MD Unavailable Mane Kearney MD Primary Care Provider [phone] Encounter Details DateTypeDepartmentCare Team (Latest Contact Info)Rgbqmgcxdos13/28/2025Clinisync Result Encounter [facility] Unsolicited Jonathan Peterson, ESTELA [address] [place] [place] [address] Social History Tobacco UseTypesPacks/DayYears UsedDateSmoking [...] relatives?Once a week11/26/2023How often do you attend catholic or episcopalian services?Never11/26/2023o you belong to any clubs or organizations such as catholic groups, unions, fraternal or athletic groups, or school groups?No 11/26/2023How often do you attend meetings of the clubs or organizations you belong to?Never11/26/2023re you , , , , never , or living with a partner?Wpaivrf1411/26/2023UDIT-CAnswerDate RecordedQ1: How often do you have a [...] and heating?Not very hard11/26/2023[facility] - Occupational Stress QuestionnaireAnswerDate [...] you engage in exercise at this level?Patient bvkmeqka32/17/2024Hunger Vital SignAnswerDate RecordedWithin the past 12 months, [...] Plan of Treatment DateTypeDepartmentCare Team (Latest Contact Info)Kgqfdypcjio30/24/2025 10:00 AM ESTOffice Visit [facility] [address] [place] [address] Jonathan Peterson PA [address] [place] [place] [address] documented as of this encounter Procedures Procedure NamePriorityDate/TimeAssociated DiagnosisCommentsECG 12-LEAD10/07/2025 2:09 PM EST documented in this encounter Results * ECG 12-LEAD (10/07/2025 2:09 PM EST)Anatomical RegionLateralityModalityOther Specimen (Source)Anatomical Location / LateralityCollection Method / Volume Collection TimeReceived Time10/07/2025 2:09 PM EST Narrative 10/07/2025 6:29 PM EST [facility] ?[address] ? [place] [address] ? Electrocardiograph Report ? Signed ? Patient: JUARES,JAZZ D ? MR#: [id number] ?? : 1965 ?Acct:[id number] ?? Age/Sex: 59 / F ?ADM Date: 10/07/25 ?? Loc: LAB ? Attending Dr: Jonathan Peterson PA ? Ordering Physician: Jonathan Peterson ?? Date of Service: 10/07/25 ?? Procedure(s): ECG 12 lead ?? Accession Number(s): [id number] ? cc: ?[facility] ? Test Date: ?2025-10-07 ?? Pat Name: ? JAZZ JUARES ?Department: ? Room: ? - ?? Gender: ? Female ? Athletic Coach: ? : ?1965 ? Requested By: [id number] ?? Order Number: [id number] ?Reading MD: ?? LAUREL ??JEAN CLAUDE M.D. ? Measurements ?? Intervals ?[place] ? Rate: ? 85 ? P: ?72 ?? IL: ? 187 ?QRS: ?89 ?? QRSD: ? [...] 1829 ? DD/ 1409 ? TD/TT: ? Aix Administrator: Procedure Note Radiology, Radiologist, MD - 10/07/2025 [place] [address] Electrocardiograph Report Signed Patient: JAZZ JUARES DMR#: [id number] : 1965Acct:[id number] Age/Sex: 59 / FADM Date: 10/07/25 Loc: LAB Attending Dr: Jonathan PALMER Ordering Physician: Jonathan Peterson Date of Service: 10/07/25 Procedure(s): ECG 12 lead Accession Number(s): [id number] cc: [facility] Test Date: 2025-10-07 Pat Name: JAZZ JUARES Department: Room: - Gender: Female Athletic Coach: : 1965 Requested By: [id number] Order Number: [id number] Reading MD: LAUREL SILVERIO M.D. Measurements Intervals [place] Rate: 85 P: 72 [place]: 187 QRS: 89 QRSD: 106 T: 68 QT: 359 QTc: 429 Interpretive Statements SINUS RHYTHM INCOMPLETE RIGHT BUNDLE BRANCH BLOCK [90+ ms QRS DURATION, TERMINAL R IN V1/V2, 40+ ms S IN I/aVL/V4/V5/V6] Borderline ECG Compared to ECG 11/10/2022 13:49:07 Right-axis deviation no longer present Electronically Signed On 10-07-2025 18:29:28 EST by LAUREL SILVERIO M.D. Dictated By: LAUREL SILVERIO Signed By:10/07/25182810/07/251828 DD/ 140 TD/TT: Aix Administrator: Authorizing ProviderResult TypeResult StatusMatthew J Peterson [facility] Final Result documented in this encounter Visit Diagnoses Not on filedocumented in this encounter Care Teams Team MemberRelationshipSpecialtyStart DateEnd Date Mane Kearney MD [address] [place] [phone] [facility] Mane Kearney MD [address] [place] [phone] PCP - GeneralFamily Juvvyilg32/20/25documented as of this encounter
--- OUTSIDE RECORDS SUMMARY | 2025-10-11 11:55 | XMS_ITS | CCD ---
Author Organization [facility] Care Team Providers Care Attending Physician Name Role Phone EJSUS, DR MANE Avina Primary [facility] Unavailable MORGAN [...] JESUS, DR MANE Avina Primary [facility] Unavailable STANTON, DR NIA Uriostegui Consulting Unavailable JESUS, DR MANE Avina Consulting Unavailable MD Mane Lee Primary Care Provider [phone] BERNICE Shipman Attending Provider Mane Lee MD Primary Care Provider Melva BACK, Corine Puentes Attending Unavailable Melva BACK, Andsidra Puentes Attending Unavailable Melva BACK, Pazrius Puentes Attending Unavailable Melva BACK, Corine Puentes Attending Unavailable Mane Lee MD Unavailable Mane Lee MD Primary Care Provider Mane Lee MD Attending Provider [phone] Mane Lee Attending Unavailable Mane Lee Primary [...] Allergen(s)Allergy TypeDate of OnsetReaction(s) Facility (1 source)CiprofloxacinDrug Znbttaq26-33-2978WvmTri[facility] Repository (20 sources)CiprofloxacinDrug Odhjcrb28-38-0502[facility] (1 source)CiprofloxacinDrug Bogxqnm71-38-9468LotgqrrwaShelby [facility] Repository Medications Current Medications MedicationDrug Class(es)DatesSig (Normalized)Sig (Original)acetaminophen 325 mg / HYDROcodone bitartrate 5 mg oral tablet (2 sources)Opioid AgonistStart: 93-64-3586jjxu 1 tablet by mouth every six hours as needed for painHydrocodone-Acetaminophen 5-325 mg tablet Active 1 TAB PO Every 6 hours as needed for pain 28 7 August 15, 2025 Complies with drug [id number] 200 actuat albuterol 0.09 mg/actuat metered dose inhaler (20 sources)beta2-Adrenergic AgonistStart: 15-92-5790wkni 1 puff(s) by inhalation every four hours as needed for wheezingAlbuterol Sulfate 90 mcg/actuation HFA aerosol inhaler Active 2 PUFF INHALATION Every 4 hours as nee ded for shortness of breath or wheezing 8.5 July 22, 2025 10:46am Complies with drug therapyStart: 07-21-2025 End: 03-45-7642yrqc 1 puff(s) by inhalation every six hours as neededAlbuterol Sulfate 90 mcg/actuation HFA aerosol inhaler Discontinued 2 PUFF INHALATION Every 6 hoursas needed July 21, 2025 12:00am July 22, 2025 10:49am Start: 29-15-9490zinbfhjhz (2.5 MG/3ML) 0.083% nebulizer solution Indications: Moderate COPD (chronic obstructive pulmonary disease) (HCC) Take 3 mL (2.5 mg) by nebulization every 6 (six) hours if needed for shortness of breath 75 mL 10/28/2023 ActiveStart: 10-28-2023 End: 65-01-9832cqbi 2 puff(s) by inhalation every six hoursalbuterol HFA 90 mcg/act inhaler Indications: Chronic obstructive pulmonary disease, unspecified COPD type (HCC) Inhale 2 puffs every 6 (six) hours if needed for shortness of breath 18 g 3 07/01/2024ctiveamLODIPine 5 mg oral tablet (20 sources)Dihydropyridine Calcium Channel BlockerStart: 10-28-2023 End: 49-42-2561nyli 1 tablet by mouth once dailyamLODIPine (Norvasc) 5 MG tablet Indications: Essential hypertension, benign Take 1 tablet (5 mg) by mouth Daily 90 tablet 3 08/04/2024 Activecefdinir 300 mg oral capsule (2 sources)Cephalosporin AntibacterialStart: 08-04-2024 End: 14-30-1334cpfw 1 capsule by mouth in the morningcefdinir (Omnicef) 300 MG capsule Indications: Acute bronchitis due to other specified organisms Take 1 capsule (300 mg) by mouth in the morning and 1 capsule (300 mg) before bedtime. Do all this for10 days. 20 capsule 08/04/2024 08/14/2024 Activecholecalciferol 0.05 mg oral capsule (20 sources)Vitamin DStart: 07-21-2025 End: 33-93-1410porp 1 capsule by mouth once dailyCholecalciferol (Vitamin D3) 50 mcg (2,000 unit) capsule Active 50 MCG PO Daily July 28, 2025 7:03am Complies with drug therapyStart: 10-28-2023 End: 98-93-4326bbtv 1 tablet by mouth once dailycholecalciferol (Vitamin D-3) 50 MCG (2000 UT) tablet Indications: Vitamin D deficiency Take 1 tablet (50 mcg) by mouth Daily 90 tablet 3 08/04/2024 08/10/2025 Activecyclobenzaprine hydrochloride 10 mg oral tablet (20 sources)Muscle RelaxantStart: 04-28-2025 End: 58-70-9225wtiv 1 tablet by mouth three times daily as needed for muscle spasmscyclobenzaprine (Flexeril) 10 MG tablet Indications: Spinal stenosis, lumbar region, without neurogenic claudication TAKE 1 TABLET BY MOUTH THREE TIMES DAILY NEEDED FOR MUSCLE SPASMS 90 tablet 3 04/28/2025 ActiveStart: 71-11-2243wunc 1 tablet by mouth three times daily as needed for muscle spasms cyclobenzaprine (Flexeril) 10 MG tablet Indications: Spinal stenosis, lumbar region, without neurogenic claudication Take 1 tablet (10 mg) by mouth 3 (three) times a day as needed for muscle spasms 90 tablet 3 03/31/2025 ActiveStart: 09-15-2023 End: 00-20-4219vpjf 1 tablet by mouth three times daily as needed for muscle spasmscyclobenzaprine (Flexeril) 10 MG tablet Indications: Spinal stenosis, lumbar region, without neurogenic claudication Take 1 tablet (10 mg) by mouth 3 (three) times a day as needed for muscle spasms 90 tablet 3 08/04/2024 Active DULoxetine 60 mg delayed release oral capsule (20 sources)Serotonin and Norepinephrine Reuptake InhibitorStart: 10-28-2023 End: 46-35-0850hquy 1 capsule by mouth once dailyDULoxetine (Cymbalta) [address] capsule Indications: Degeneration of lumbar intervertebral disc Take1 capsule (60 mg) by mouth Daily 90 capsule 3 08/04/2024 Activefurosemide 40 mg oral tablet (20 sources)Loop DiureticStart: 10-28-2023 End: 65-06-9079sznb 1 tablet by mouth once dailyfurosemide (Lasix) 40 MG tablet Indications: Lower extremity edema Take 1 tablet (40 mg) by mouth Daily 90 tablet 3 08/04/2024 ActivehydroCHLOROthiazide 25 mg / losartan potassium 100 mg oral tablet (20 sources)Thiazide Diuretic, Angiotensin 2 Receptor BlockerStart: 07-27-2024 End: 81-34-6337qgqg 1 tablet by mouth once dailylosartan-hydroCHLOROthiazide (Hyzaar) 100-25 MG tablet Indications: Essential hypertension, benign Take 1 tablet by mouth Daily 90 tablet 3 07/27/2024 ActiveStart: 10-28-2023 End: 11-41-1533byex 1 tablet by mouth in the morninglosartan-hydroCHLOROthiazide (Hyzaar) 100-25 MG tablet Indications: Essential hypertension, benign (CMS/HCC) Take 1 tablet by mouth in the morning. 90 tablet 3 10/28/2023 10/27/2024 Active phentermine hydrochloride 37.5 mg oral tablet (20 sources)Sympathomimetic Amine AnorecticStart: 01-10-2025 End: 73-96-4167vvlc 45-49.9 tablets by mouth before mealtimephentermine (Adipex- P) 37.5 MG tablet Indications: Class 3 severe obesity due to excess calories wit h serious comorbidity and body mass index (BMI) of 45.0 to 49.9 in adult (CMS- HCC) Take 1 tablet (37.5 mg) by mouth in the morning. Take before meals. 30 tablet 05/27/2025 ActiveStart: 06-02-2024 End: 40-30-1233pfcb 1 tablet by mouth before mealtimephentermine (Adipex-P) 37.5 MG tablet Indications: Morbid obesity due to excess calories (CMS/HCC) Take 1 tablet (37.5 mg) by mouth in the morning. Take before meals. 30 tablet 07/01/2024 08/04/2024 DiscontinuedStart: 11-26-2023 End: 75-89-0953ozlt 1 tablet by mouth in the morningphentermine (Adipex-P) 37.5 MG tablet Indications: Morbid obesity (CMS/HCC) Take 1 tablet (37.5 mg)by mouth in the morning. 30 tablet 0 11/26/2023 12/26/2023 Activepotassium chloride 20 meq extended release oral tablet (20 sources)Start: 10-28-2023 End: 62-01-3560yqrs 1 tablet by mouth once dailyPotassium Chloride 20 mEq tablet extended release Active 20 MEQ PO Daily July 21, 2025 12:00am Complies with drug therapypredniSONE 50 mg oral tablet (5 sources)Start: 10-59-5541zfai 1 tablet by mouth once dailyPrednisone 50 mg tablet Active 50 MG PO Daily 6 July 22, 2025 12:00am Complies with drug therapyStart: 08-04-2024 End: 87-82-5012ijeo 1 tablet by mouth once dailypredniSONE (Deltasone) 50 MG tablet Indications: Acute bronchitis due to other specified organisms Take 1 tablet (50 mg) by mouth Daily for 6 days 6 tablet 08/04/2024 08/10/2024 Active Umeclidinium-Vilanterol (20 sources)Anticholinergic, beta2-Adrenergic AgonistStart: 07-22-2025 Umeclidinium-Vilanterol 62.5-25 mcg/actuation blister with device Active 1 INH INHALATION Daily 60 July 22, 2025 10:48am Complies with drug therapy Start: 11-88-2798Vmwkv: 07-21-2025 End: 10-60-1309Ozhqdfaiwynz-Vilanterol 62.5-25 mcg/actuation blister with device Discontinued 1 INH INHALATION Daily July 21, 2025 12:00am July 22, 2025 10:49amStart: 85-96-4399Lryspboaweol-Vilanterol 62.5-25 mcg/actuation blister with device Active 1 INH INHALATION Daily July 21, 2025 12:00am Complies with drug therapyStart: 36-13-2119ihzu 1 puff(s) by mouth once daily Anoro Ellipta 62.5-25 MCG/ACT aerosol powder Indications: Moderate COPD (chronic obstructive pulmonary disease) (CMS/HCC) INHALE 1 PUFF BY MOUTH DAILY 60 each 5 08/04/2024 ActiveStart: 07-08-2024 End: 30-10-3355lxfb 1 puff(s) by mouth once dailyUmeclidinium-Vilanterol (Anoro Ellipta) 62.5-25 MCG/ACT aerosol powder Indications: Moderate COPD (chronic obstructive pulmonary disease) (HCC) INHALE 1 PUFF BY MOUTH ONCE DAILY 60 each 3 04/28/2025 ActiveStart: 10-28-2023 End: 23-92-8844rckl 1 puff(s) by inhalation in the morningUmeclidinium- Vilanterol (Anoro Ellipta) 62.5-25 MCG/ACT aerosol powder Indications: Moderate COPD (chronic obstructive pulmonary disease) (CMS/HCC) Inhale 1 puff in the morning. 1 each 6 10/28/2023 11/08/2024 Activezonisamide 50 mg oral capsule (20 sources)Anti-epileptic AgentStart: 07-01-2024 End: 95-14-3393qocv 1 capsule by mouth at bedtimezonisamide (Zonegran) 50 MG capsule Indications: Spinal stenosis, lumbar region, without neurogenic claudication Take 1 capsule (50 mg) by mouth at bedtime 90 capsule 3 08/04/2024 ActiveStart: 04-01-2024 End: 87-25-7301ilhlgcyqaa (Zonegran) 100 MG capsule Take 50 mg by mouth at bedtime 04/01/2024 07/01/2024 Discontinued (Dose adjustment) Completed/Discontinued Medications MedicationDrug Class(es)DatesSig (Normalized)Sig (Original)celecoxib 200 mg oral capsule (20 sources)Nonsteroidal Anti-inflammatory DrugStart: 10-28-2023 End: 37-48-2983rzvy 1 capsule by mouth twice dailyCelecoxib 200 mg capsule Discontinued 200 MG PO Twice daily July 21, 2025 12:00am July 22, 2025 10:49amtraMADol hydrochloride 50 mg oral tablet (3 sources)Opioid AgonistStart: 07-22-2025 End: 17-43-3188jcrc 1 tablet by mouth every six hours as needed for painTramadol 50 mg tablet Discontinued 50 MG PO Every 6 hours as needed for pain 28 7 July 22, 2025 12:00am August 15, 2025 12:02pm Problems Active Problems Problem ClassificationProblemDateDocumented DateEpisodic/ChronicChronic obstructive pulmonary disease and bronchiectasis (20 sources)Chronic obstructive pulmonary disease, unspecified; 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: [Chronic obstructive pulmonary disease with (acute) lower respiratory infection] Onset: 45-50-1795XdxqvljReihcafrc hypertension (20 sources)Essential (primary) hypertension; 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: [Benign essential hypertension]Onset: 164245-67-7563PlahjnnMarqe disorders and dislocations; trauma-related (6 sources)Derangement of left knee; 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: [Unspecified internal derangement of left knee]23-29-1875FhxkfgnYiihnmuybvj deficiencies (20 sources)Vitamin D deficiency; 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: [Vitamin D deficiency, unspecified]Onset: 719734-74-0732TnnvmjqMikzrsrzclclbs (8 sources)Osteoarthritis of left knee joint; 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: [Unilateral primary osteoarthritis, left knee]11-55-7768LruvreoBspmv aftercare (1 source)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; 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: [OTH PRISON CURRENT DRUG THERAPY]Onset: 85-88-0551ElwreaxbXphgi aftercare (1 source)care home (current) use of opiate analgesic; 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: [PRISON CURRNT USE OPIATE ANALGES]Onset: 23-22-8700MzxlfoiwKpgci lower respiratory disease (2 sources)Shortness of breath; 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: [SHORTNESS OF BREATH]Onset: 00-35-3074UmvwnoxqGjfed non-traumatic joint disorders (2 sources)Pain in left knee; 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: [Pain in joint, lower leg]09-07-2025 EpisodicOther nutritional; endocrine; and metabolic disorders (12 sources)Morbid obesity; 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: [Morbid (severe) obesity due to excess calories]Onset: 420656-65-7556XujpwhaElbkd nutritional; endocrine; and metabolic disorders (20 sources)Severe obesity; 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: [Class 3 severe obesity due to excess calories with serious comorbidity and body mass index (BMI) of 45.0 to 49.9 in adult ([facility])]Onset: 638747-31-6521XrimbtqAxbpk screening for suspected conditions (not mental disorders or infectious disease) (1 source)Encounter for screening mammogram for malignant neoplasm of breast; 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: [ENC SCR MAMMO MALIG NEOPLASM BREAST]Onset: 35-89-0529Ffcznwja Pneumonia (except that caused by tuberculosis or sexually transmitted disease) (1 source)Pneumonia, unspecified organism; 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: [PNEUMONIA UNSPECIFIED ORGANISM]Onset: 45-49-3121QqnunmnoOzpksuge codes; unclassified (20 sources)Obstructive sleep apnea syndrome; 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: [Obstructive sleep apnea (adult) (pediatric)]Onset: 577625-81-0343PqmljyiDewirwsx codes; unclassified (4 sources)Obstructive sleep apnea of adult; 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: [Obstructive sleep apnea (adult) (pediatric)]77-00-3226VjiimugQogjtmzr codes; unclassified (1 source)Family history of malignant neoplasm of digestive organs; 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: [FAM HX MALIG NEOPLASM DIGESTIV ORGN]Onset: 80-99-4355Stmyfexy Residual codes; unclassified (1 source)Family history of malignant neoplasm of breast; 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: [FAMILY HX MALIG NEOPLASM OF BREAST]Onset: 82-96-8221ZgseshrdLtbmcaad codes; unclassified (1 source)Family history of malignant neoplasm of trachea, bronchus and lung; 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: [FAM HX MALIG NEOPLSM TRACH BRON LNG]Onset: 96-30-8074Cncwqdjo Residual codes; unclassified (1 source)Family history of stroke; 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: [FAMILY HISTORY OF STROKE] Onset: 28-65-9407FboeqzxvIufmaayd codes; unclassified (1 source)Edema, unspecified; 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: [EDEMA UNSPECIFIED]Onset: 11-20-2022 EpisodicRespiratory failure; insufficiency; arrest (adult) (1 source)Acute respiratory failure with hypoxia; 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: [ACUTE RESPIRATORY FAIL W/HYPOXIA]Onset: 30-77-4410VahzsqrbYxmaycpfzup; intervertebral disc disorders; other back problems (6 sources)Degeneration of lumbar intervertebral disc; 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: [Other intervertebral disc degeneration, lumbar region]77-12-4655YyltqtvZjagtomhh- related disorders (20 sources)Nicotine dependence, cigarettes, uncomplicated; 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: [Cigarette smoker ]Onset: 109625-49-9227KidiypxWniwibzickii (1 source)CONTACT W/AND (SUSP) EXPOS COVID-19; 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: [CONTACT W/AND (SUSP) EXPOS COVID-19]Onset: 97-14-8691Ycbrrntqgasl (1 source)M23.92 - Unspecified internal derangement of left knee,M17.12 - Unilateral primary osteoarthritis, left knee Past or Other Problems Problem ClassificationProblemDateDocumented DateEpisodic/ChronicAcute bronchitis (20 sources)Acute infective bronchitis; 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: [Acute bronchitis due to other specified organisms]Onset: 08-04-2024 Resolved: 716247-10-9803DsazgzeeVwnyx and unspecified benign neoplasm (20 sources)History of polyp of colon; 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: [Personal history of colonic polyps]Onset: 033483-83-0137CwexwdilUsbpn bone disease and musculoskeletal deformities (20 sources)Osteopenia; 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: [Other specified disorders of bone density and structure, right thigh]Onset: 202614-23-8738MwokeutxNbaty injuries and conditions due to external causes (20 sources)Unspecified injury of other specified muscles, fascia and tendons at wrist and hand level, right hand, initial encounter; 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: [Elbow, forearm, and wrist injury]Onset: 885937-20-9161XhsgnywuYbdkfdtn codes; unclassified (20 sources)Edema of lower extremity; 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: [Localized edema]Onset: 757275-68-4167KyfzrxmdHplmfhhuume; intervertebral disc disorders; other back problems (20 sources)Degenerative lumbar spinal stenosis; 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: [Spinal stenosis, lumbar region without neurogenic claudication]Onset: Episodic Results Test NameValueInterpretationReference RangeFacilityXR Knee - left 1 or 2 Viewson 39-06-9761Hlqaart Result: X-rays AP and lateral of left [...] structures visualized appeared to be adequately ossified. [facility] HealthcareRadiology Study observation (narrative)[facility] JoplinCT lung screeningon 47-93-1005RW lung screeningPROMEDICA BAY PARK [facility] Main Clear [address] [place] [address] CT Scan Report Signed Patient: Lawrence Harrison MR#: [id number] : 1965 Acct:[id number] Age/Sex: 59 / F ADM Date: 08/08/25 Loc: CT Room: Type: [facility] Attending Dr: Mane Lee MD Copies to: [...] Jr., D.O. 08/08/2025 12:43 PM Dictation Location: [place] [address] Transcribed By: [facility] 08/08/25 1243 Dictated By: Owen Smith Jr, DO 08/08/25 1242 Signed By: 08/08/25 1243[facility] Physician GroupALL CBC WITH AUTO DIFFon 08-13-9051BBRUWKVKC ABSOLUTE AUTO0.1NOMS HealthcareBasophils/100 WBC (Bld)0.7 % 0.2 - 2.0 %NOMS HealthcareEosinophils/100 WBC (Bld)4.2 %0.9 - 7.0 %NOMFreeman Health SystemErythrocyte distribution width (RBC) [Ratio]12.8 %11.0 - 15.0 %NOMFreeman Health SystemHematocrit (Bld) [Volume fraction]40.5 %36.0 - 48.0 %[facility] Hemoglobin (Bld) [Mass/Vol]13.3 g/dL12.0 - 16.0 g/dLNOMoberly Regional Medical CenterIMMATURE GRANULOCYTES ABS AUTO0.02NOMS HealthcareImmature granulocytes/100 WBC (Bld)0.2 % 0.0 - 0.5 %NOMFreeman Health SystemLYMPHOCYTES ABSOLUTE AUTO1.9[facility] Lymphocytes/100 WBC (Bld)22.4 %20.5 - 60.0 %[facility] JoplinMCH (RBC) [Entitic mass]29.6 pg26.7 - 34.0 pgNOCox BransonHC (RBC) [Mass/Vol]32.8 g/dL29.9 - 35.2 g/dLSSM Health CareV (RBC) [Entitic vol]90 fL81.0 - 99.0 fLNOMoberly Regional Medical CenterMONOCYTES ABSOLUTE AUTO0.6NOMS HealthcareMonocytes/100 WBC (Bld)7.4 % 1.7 - 12.0 %NOMS HealthcareNEUTROPHILS ABSOLUTE AUTO5.6NOMoberly Regional Medical Center Neutrophils/100 WBC (Bld)65.1 %43.0 - 75.0 %NOMS HealthcarePlatelet mean volume (Bld) [Entitic vol]9.6 fL9.5 - 13.5 fLNOMoberly Regional Medical CenterTB EO #0.4[facility] TBH UEN455ZICV [facility] RBC4.5NOChildren's Mercy [facility]land WBC8.6NOMoberly Regional Medical Center CLINISYNCMercy Hospital JoplinMM TOMOSYNTHESIS SCREENING BIon 82-40-3337ScvHastings[place] [address] Mammography Report Signed Patient: LAWRENCE HARRISON MR#: [id number] : 1965 Acct:[id number] Age/Sex: 58 / F ADM Date: 06/24/24 Loc: MAMMO Attending Dr: Mane Lee M.D. Ordering Physician: Mane Lee M.D. Results: Date of Service: 06/24/24 Follow Up: Procedure(s): MM tomosynthesis screening BI Accession Number(s): [id number] cc: Mane Lee M.D. Patient Name: LAWRENCE HARRISON MR#: [id number] : 1965 Exam Date: 06/24/2024 Ordering Doctor: [...] cancer at age 73. LOCATION: [facility] BREAST COMPOSITION: There are scattered areas of [...] Signed By: 06/25/24 1241 DD/ 1240 TD/TT: [employer] Attendant:TBHRadiology, Radiologist, - 06/25/2024 [place] [address] Mammography Report Signed Patient: LAWRENCE HARRISON MR#: [id number] : 1965 Acct:[id number] Age/Sex: 58 / F ADM Date: 06/24/24 Loc: MAMMO Attending Dr: Mane Lee M.D. Ordering Physician: Mane Lee M.D. Results: Date of Service: 06/24/24 Follow Up: Procedure(s): MM tomosynthesis screening BI Accession Number(s): [id number] cc: Mane Lee M.D. Patient Name: LAWRENCE HARRISON MR#: [id number] : 1965 Exam Date: 06/24/2024 Ordering Doctor: [...] cancer at age 73. LOCATION: [facility] BREAST COMPOSITION: There are scattered areas of [...] Signed By: 06/25/24 1241 DD/ 1240 TD/TT: Nurs[employer] Attendant: [facility]oplinRadiology Study observation (narrative)[facility] TOMOSYNTHESIS SCREENING BIOrdered By: Radiologist Radiology on 68-34-7885TCTFMercy Hospital Joplin Work Phone: HEMOGLOBINon 23-06-5274Sqkouczlec (Bld) [Mass/Vol]14.6 g/nJUvzisx16.0-16.0[facility] HospitalComment on above:Performed By: #### HGB #### [facility] [address] [place] [address] Dr. Evangelist Chicas MAMM SCREEN 3D MANJIT CADon 15-42-3829EF MAMM SCREEN 3D MANJIT CAD Patient: LAWRENCE HARRISON Exam Date: 01/29/2023 : 1965 Gender:F Ordering : DR MANE LEE . Admission #: [id number] Family : Order #: [id number] CLICK HERE TO VIEW EXAM RADIOLOGY REPORT [...] cancer at age 73. LOCATION: [facility] BREAST COMPOSITION: Scattered areas fibroglandular density. [...] by: Nia Reagan MD on 01/29/2023 at 09:29[facility] AUTO DIFFon 76-78-1235EWYM #0.0 103/ulNormal0.0-0.1[facility] HospitalComment on above:Performed By: #### BMP #### [facility] [address] [place] [address] Dr. Evangelist ChicasBasophils/100 WBC (Bld)0.1 %Critically low0.2-2.0[facility] HospitalComment on above:Performed By: #### BMP #### [facility] [address] [place] [address] Dr. Evangelist He #0.0 103/ulNormal0.0-0.7The [facility] HealthcareComasc[facility] on above: Performed By: #### BMP #### [facility] [address] [place] [address] Dr. Evangelist Robertsosinophils/100 WBC (Bld)0.1 %Critically low0.9-7.0[facility] HospitalComment on above:Performed By: #### BMP #### [facility] [address] [place] [address] Dr. Evangelist Robertsrythrocyte distribution width (RBC) [Ratio]13.1 %Qqrbos07.0-15.0 The [facility]red HealthcareComment on above:Performed By: #### BMP #### [facility] [address] [place] [address] Dr. Evangelist ChicasHematocrit (Bld) [Volume fraction]41.4 %Chpcoi01.0-48.0The [facility]red HealthcareComment on above:Performed By: #### BMP #### [facility] [address] [place] [address] Dr. Evangelist ChicasHemoglobin (Bld) [Mass/Vol]13.0 g/gJLvvzsx01.0-16.0The [facility]red HealthcareComment on above:Performed By: #### BMP #### [facility] [address] [place] [address] Dr. Evangelist Sage #0.03 10e3/ulNormal0.00-0.03The Kindred HealthcareComment on above:Performed By: #### BMP #### [facility] [address] [place] [address] Dr. Evangelist Sage %0.4 %Normal0.0-0.5The Kindred HealthcareComment on above: Performed By: #### BMP #### [facility] [address] [place] [address] Dr. Evangelist Hooks #0.4 103/ulCritically low1.2-3.8[facility] Comment on above:Performed By: #### BMP #### [facility] [address] [place] [address] Dr. Evangelist Johnsonhocytes/100 WBC (Bld)4.7 %Critically low20.5-60.0The [facility]red HealthcareComment on above:Performed By: #### BMP #### [facility] [address] [place] [address] Dr. Evangelist CurielUAL DIFF REQNONormalThe Kindred HealthcareComment on above: Performed By: #### BMP #### [facility] [address] [place] [address] Dr. Evangelist Patterson (RBC) [Entitic mass]29.1 ugIwxvml96.7-34.0The [facility]red HealthcareComment on above:Performed By: #### BMP #### [facility] [address] [place] [address] Dr. Evangelist EdgeHC (RBC) [Mass/Vol]31.4 g/ePHtckzh36.9-35.2The [facility]red HealthcareComment on above:Performed By: #### BMP #### [facility] [address] [place] [address] Dr. Evangleist EdgeV (RBC) [Entitic vol]92.8 hHBjshdb86.0-99.0The [facility]red HealthcareComment on above:Performed By: #### BMP #### [facility] [address] [place] [address] Dr. Evangelist Mckinley #0.1 103/ulCritically low0.3-0.8The [facility]red HealthcareComment on above:Performed By: #### BMP #### [facility] [address] [place] [address] Dr. Evangelist Sanchezocytes/100 WBC (Bld)1.8 %Normal1.7-12.0[facility] Comment on above:Performed By: #### BMP #### [facility] [address] [place] [address] Dr. Evangelist Martínez #6.8 103/ulCritically high1.4-6.5[facility] Comment on above:Performed By: #### BMP #### [facility] [address] [place] [address] Dr. Evangelist Wongutrophils/100 WBC (Bld)92.9 %Critically high43.0-75.0The Kindred HealthcareComment on above:Performed By: #### BMP #### [facility] [address] [place] [address] Dr. Evangelist Ngolet mean volume (Bld) [Entitic vol]11.3 fLNormal9.5-13.5The Kindred HealthcareComment on above:Performed By: #### BMP #### [facility] [address] [place] [address] Dr. Evangelist LemonT109 103/ulCritically niw227-996Gfo [facility]red HealthcareComment on above:Performed By: #### BMP #### [facility] [address] [place] [address] Dr. Evangelist ChicasRBC4.46 106/ulNormal4.20-5.40The Kindred HealthcareComment on above:Performed By: #### BMP #### [facility] [address] [address] [address] Evangelist ChicasWBC7.4 103/ulNormal4.0-11.0The [facility]red HealthcareComment on above: Performed By: #### BMP #### [facility] [address] [place] [address] Dr. Evangelist hCicasPROF CHEM 8 (BAS METB)on 94-36-2615Dqvjc gap [Moles/Vol]11.8 mmol/LNormalThe [facility]red HealthcareComment on above:Performed By: #### BMP #### [facility] [address] [place] [address] Dr. Evangelist ChicasCalcium [Mass/Vol]9.3 mg/dLNormal8.5-10.1The [facility] Comment on above:Performed By: #### BMP #### [facility] [address] [place] [address] Dr. Evangelist ChicasChloride [Moles/Vol]99 mmol/QQwowkg46-881Ucf [facility] Comment on above:Performed By: #### BMP #### [facility] [address] [place] [address] Dr. Evangelist ChicasCO2 [Moles/Vol]31.6 mmol/OZqlmzk79.0-32.0The [facility] Comment on above:Performed By: #### BMP #### [facility] [address] [place] [address] Dr. Evangelist ChicasCreatinine [Mass/Vol]0.75 mg/dLNormal0.55-1.02The [facility] HealthcareComment on above:Performed By: #### BMP #### [facility] [address] [place] [address] Dr. Blanca ChangEGFR-AF CITIZEN OF [place]>60Normal>=60The [facility] HealthcareComment on above:Performed By: #### BMP #### [facility] [address] [place] [address] Dr. Evangelist RobertsGFR-NON AF CITIZEN OF [place]>60Normal>=60The [facility] HealthcareComment on above:Performed By: #### BMP #### [facility] [address] [address] [address] Evangelist ChicasGlucose [Mass/Vol]162 mg/dLCritically wobc66-795Lew [facility] HealthcareComment on above:Performed By: #### BMP #### [facility] [address] [address] [address] Evangelist ChicasPotassium [Moles/Vol]4.4 mmol/LNormal3.5-5.1The [facility] Comment on above:Performed By: #### BMP #### [facility] [address] [place] [address] Dr. Evangelist ChicasSodium [Moles/Vol]138 mmol/VTktpby924-137Asn [facility] Comment on above:Performed By: #### BMP #### [facility] [address] [place] [address] Dr. Evangelist ChicasUrea nitrogen [Mass/Vol]32.0 mg/dLCritically high7.0-18.0The [facility] HealthcareComment on above:Performed By: #### BMP #### [facility] [address] [place] [address] Dr. Evangelist Yousif nitrogen/Creatinine [Mass ratio]42.7 mg/mgNormalThe [facility]red HealthcareComment on above:Performed By: #### BMP #### [facility] [address] [place] [address] Dr. Evangelist JaimeC AUTO DIFFon [id number] #0.0 103/ulNormal0.0-0.1The [facility]red HealthcareComment on above:Performed By: #### CBC #### [facility] [address] [place] [address] Dr. Evangelist ChicasBasophils/100 WBC (Bld)0.1 %Critically low0.2-2.0The [facility] HealthcareComment on above:Performed By: #### CBC #### [facility] [address] [place] [address] Dr. Evangelist He #0.0 103/ulNormal0.0-0.7The [facility] HealthcareComment on above: Performed By: #### CBC #### [facility] [address] [place] [address] Dr. Evangelist Robertsosinophils/100 WBC (Bld)0.0 %Critically low0.9-7.0The [facility] HealthcareComment on above:Performed By: #### CBC #### [facility] [address] [place] [address] Dr. Evangelist Robertsrythrocyte distribution width (RBC) [Ratio]12.9 %Pxnbag61.0-15.0 The [facility] HealthcareComment on above:Performed By: #### CBC #### [facility] [address] [place] [address] Dr. Evangelist ChicasHematocrit (Bld) [Volume fraction]39.0 %Lncfsr98.0-48.0The [facility] HealthcareComment on above:Performed By: #### CBC #### [facility] [address] [place] [address] Dr. Evangelist ChicasHemoglobin (Bld) [Mass/Vol]12.3 g/aMKzpqbc54.0-16.0The [facility] HealthcareComment on above:Performed By: #### CBC #### [facility] [address] [place] [address] Dr. Evangelist Sage #0.04 10e3/ulCritically high0.00-0.03The [facility] Comment on above:Performed By: #### CBC #### [facility] [address] [place] [address] Dr. Evangelist Sage %0.4 %Normal0.0-0.5The [facility] HealthcareComment on above: Performed By: #### CBC #### [facility] [address] [place] [address] Dr. Evangelist JohnsonH #0.5 103/ulCritically low1.2-3.8The [facility] Comment on above:Performed By: #### CBC #### [facility] [address] [place] [address] Dr. Evangelist Cherrymphocytes/100 WBC (Bld)4.5 %Critically low20.5-60.0The [facility] HealthcareComment on above:Performed By: #### CBC #### [facility] [address] [place] [address] Dr. Evangelist Tanner DIFF REQNONormalThe [facility]red HealthcareComment on above: Performed By: #### CBC #### [facility] [address] [place] [address] Dr. Evangelist Edge (RBC) [Entitic mass]29.7 ruMwandu67.7-34.0The [facility] HealthcareComment on above:Performed By: #### CBC #### [facility] [address] [place] [address] Dr. Evangelist Edge (RBC) [Mass/Vol]31.5 g/iIDywszt27.9-35.2The [facility] HealthcareComment on above:Performed By: #### CBC #### [facility] [address] [place] [address] Dr. Evangelist EdgeV (RBC) [Entitic vol]94.2 dMZsppio12.0-99.0The [facility] HealthcareComment on above:Performed By: #### CBC #### [facility] [address] [place] [address] Dr. Evangelist Mckinley #0.2 103/ulCritically low0.3-0.8The [facility] HealthcareComment on above:Performed By: #### CBC #### [facility] [address] [place] [address] Dr. Evangelist Sanchezocytes/100 WBC (Bld)1.5 %Critically low1.7-12.0The [facility] HealthcareComment on above:Performed By: #### CBC #### [facility] [address] [place] [address] Dr. Evangelist Martínez #10.5 103/ulCritically high1.4-6.5The [facility] Comment on above:Performed By: #### CBC #### [facility] [address] [address] [address] Evangelist ChicasNeutrophils/100 WBC (Bld)93.5 %Critically high43.0-75.0The [facility] HealthcareComment on above:Performed By: #### CBC #### [facility] [address] [address] [address] Evangelist ChicasPlatelet mean volume (Bld) [Entitic vol]10.4 fLNormal9.5-13.5The [facility] HealthcareComment on above:Performed By: #### CBC #### [facility] [address] [address] [address] Evangelist ChicasPLT169 103/qmNsugjl564-465Bpu [facility] HealthcareComment on above: Performed By: #### CBC #### [facility] [address] [address] [address] Evangelist ChicasRBC4.14 106/ulCritically low4.20-5.40The [facility] HealthcareComment on above:Performed By: #### CBC #### [facility] [address] [address] [address] Evangelist ChicasWBC11.2 103/ulCritically high4.0-11.0The [facility] HealthcareComment on above:Performed By: #### CBC #### [facility] [address] [place] [address] Dr. Evangelist ChicasCULTBETHANIE SPUTUMon 96-13-4725HRTKMDJ SPUTUMCulture Observations: NORMAL RESPIRATORY SHAINA.NormalThe [facility]red HealthcareComment on above:Performed By: #### BMP #### [facility] [address] [address] [address] Evangelist ChicasPROF CHEM 8 (BAS METB)on 82-79-3142Yetuk gap [Moles/Vol]9.2 mmol/LNormalTrihealth Bethesda Butler HospitalComment on above:Performed By: #### DDIM #### [facility] [address] [place] [address] Dr. Evangelist ChicasCalcium [Mass/Vol]9.1 mg/dLNormal8.5-10.1The [facility] Comment on above:Performed By: #### DDIM #### [facility] [address] [address] [address] Evangelist ChicasChloride [Moles/Vol]100 mmol/EQqyvax01-885Wul [facility] Comment on above:Performed By: #### DDIM #### [facility] [address] [address] [address] Evangelist ChicasCO2 [Moles/Vol]33.8 mmol/LCritically high21.0-32.0The [facility] HealthcareComment on above:Performed By: #### DDIM #### [facility] [address] [place] [address] Dr. Evangelist ChicasCreatinine [Mass/Vol]0.85 mg/dLNormal0.55-1.02The [facility] HealthcareComment on above:Performed By: #### DDIM #### [facility] [address] [address] [address] Evangelist RobertsGFR-AF CITIZEN OF [place]>60Normal>=60The [facility] HealthcareComment on above:Performed By: #### DDIM #### [facility] [address] [place] [address] Dr. Evangelist RobertsGFR-NON AF CITIZ[place] OF [place]>60Normal>=60The [facility] HealthcareComment on above:Performed By: #### DDIM #### [facility] [address] [address] [address] Evangelist ChicasGlucose [Mass/Vol]151 mg/dLCritically ciik75-757Lkw [facility] HealthcareComment on above:Performed By: #### DDIM #### [facility] [address] [address] [address] Evangelist ChicasPotassium [Moles/Vol]4.0 mmol/LNormal3.5-5.1The [facility] Comment on above:Performed By: #### DDIM #### [facility] [address] [place] [address] Dr. Evangelist ChicasSodium [Moles/Vol]139 mmol/FRwdjqs305-234Upe [facility] Comment on above:Performed By: #### DDIM #### [facility] [address] [place] [address] Dr. Evangelist Yousif nitrogen [Mass/Vol]29.0 mg/dLCritically high7.0-18.0The [facility] HealthcareComment on above:Performed By: #### DDIM #### [facility] [address] [place] [address] Dr. Evangelist Yousif nitrogen/Creatinine [Mass ratio]34.1 mg/mgNormalThe [facility] HealthcareComment on above:Performed By: #### DDIM #### [facility] [address] [place] [address] Dr. Evangelist Pike AUTO DIFFon [id number] #0.0 103/ulNormal0.0-0.1The [facility] HealthcareComment on above:Performed By: #### CBC #### [facility] [address] [place] [address] Dr. Evangelist ChicasBasophils/100 WBC (Bld)0.1 %Critically low0.2-2.0The [facility] HealthcareComment on above:Performed By: #### CBC #### [facility] [address] [place] [address] Dr. Evangelist He #0.0 103/ulNormal0.0-0.7The [facility] HealthcareComment on above: Performed By: #### CBC #### [facility] [address] [place] [address] Dr. Evangelist Robertsosinophils/100 WBC (Bld)0.0 %Critically low0.9-7.0The [facility] HealthcareComment on above:Performed By: #### CBC #### [facility] [address] [place] [address] Dr. Evangelist Robertsrythrocyte distribution width (RBC) [Ratio]12.8 %Vzgagp71.0-15.0 The [facility] HealthcareComment on above:Performed By: #### CBC #### [facility] [address] [address] [address] Evangelist ChicasHematocrit (Bld) [Volume fraction]41.5 %Bwbizh11.0-48.0The [facility] HealthcareComment on above:Performed By: #### CBC #### [facility] [address] [place] [address] Dr. Evangelist ChicasHemoglobin (Bld) [Mass/Vol]13.0 g/xVGbhwyr09.0-16.0The [facility] HealthcareComment on above:Performed By: #### CBC #### [facility] [address] [place] [address] Dr. Evangelist ChicasIG #0.04 10e3/ulCritically high0.00-0.03The [facility] Comment on above:Performed By: #### CBC #### [facility] [address] [place] [address] Dr. Evangelist ChicasIG %0.3 %Normal0.0-0.5The [facility] HealthcareComment on above: Performed By: #### CBC #### [facility] [address] [place] [address] Dr. Evangelist Hooks #0.5 103/ulCritically low1.2-3.8The [facility] Comment on above:Performed By: #### CBC #### [facility] [address] [place] [address] Dr. Evangelist Cherrymphocytes/100 WBC (Bld)3.7 %Critically low20.5-60.0The [facility] HealthcareComment on above:Performed By: #### CBC #### [facility] [address] [place] [address] Dr. Evangelist ChicasMANUAL DIFF REQNONormalThe [facility] HealthcareComment on above: Performed By: #### CBC #### [facility] [address] [place] [address] Dr. Evangelist Patterson (RBC) [Entitic mass]29.5 zgHztcon35.7-34.0The [facility] HealthcareComment on above:Performed By: #### CBC #### [facility] [address] [address] [address] Evangelist EdgeHC (RBC) [Mass/Vol]31.3 g/wYQqaxxm55.9-35.2The [facility] HealthcareComment on above:Performed By: #### CBC #### [facility] [address] [place] [address] Dr. Evangelist EdgeV (RBC) [Entitic vol]94.3 mESyiykq39.0-99.0The [facility] HealthcareComment on above:Performed By: #### CBC #### [facility] [address] [place] [address] Dr. Evangelist Mckinley #0.2 103/ulCritically low0.3-0.8The [facility] HealthcareComment on above:Performed By: #### CBC #### [facility] [address] [place] [address] Dr. Evangelist Sanchezocytes/100 WBC (Bld)1.3 %Critically low1.7-12.0The [facility] HealthcareComment on above:Performed By: #### CBC #### [facility] [address] [place] [address] Dr. Evangelist Martínez #12.4 103/ulCritically high1.4-6.5The [facility] Comment on above:Performed By: #### CBC #### [facility] [address] [place] [address] Dr. Evangelist Wongutrophils/100 WBC (Bld)94.6 %Critically high43.0-75.0The [facility] HealthcareComment on above:Performed By: #### CBC #### [facility] [address] [place] [address] Dr. Evangelist Ngolet mean volume (Bld) [Entitic vol]9.9 fLNormal9.5-13.5The [facility] HealthcareComment on above:Performed By: #### CBC #### [facility] [address] [place] [address] Dr. Evangelist ChicasPLT189 103/niHthnrz078-642Rjl [facility] HealthcareComment on above: Performed By: #### CBC #### [facility] [address] [address] [address] Blanca ChangRBC4.40 106/ulNormal4.20-5.40The [facility] on above:Performed By: #### CBC #### [facility] [address] [address] [address] Blanca UtztzJEC22.1 103/ulCritically high4.0-11.0The [facility] HealthcareComment on above:Performed By: #### CBC #### [facility] [address] [address] [address] Blanca ChangECHOCARDIO M/2D COMPLETEon [id number] M/2D COMPLETE Patient: LAWRENCE HARRISON Exam Date: 11/12/2022 : 1965 Gender:F Ordering : DR MANE LEE . Admission #: [id number] Family : DR VAMSHI MORGAN . Order #: [id number] CLICK HERE TO VIEW EXAM ECHOCARDIOGRAM REPORT [...] by: Nayely Goncalves M.D. on 11/12/2022 at 13:56[facility] HospitalPR[facility] (BAS METB)on 83-04-3666Locty gap [Moles/Vol]10.2 mmol/L NormalThe [facility]red HealthcareComment on above:Performed By: #### BMP #### [facility] [address] [address] [address] Evangelist ChicasCalcium [Mass/Vol]9.2 mg/dLNormal8.5-10.1The [facility] Comment on above:Performed By: #### BMP #### [facility] [address] [address] [address] Evangelist ChicasChloride [Moles/Vol]99 mmol/QVejhxk35-137Nqk [facility] Comment on above:Performed By: #### BMP #### [facility] [address] [address] [address] Evangelist ChicasCO2 [Moles/Vol]31.5 mmol/HKznvpa46.0-32.0The [facility] Comment on above:Performed By: #### BMP #### [facility] [address] [address] [address] Evangelist ChicasCreatinine [Mass/Vol]0.87 mg/dLNormal0.55-1.02The [facility] HealthcareComment on above:Performed By: #### BMP #### [facility] [address] [address] [address] Evangelist RobertsGFR-AF CITIZEN OF [place]>60Normal>=60The [facility] HealthcareComment on above:Performed By: #### BMP #### [facility] [address] [address] [address] Evangelist RobertsGFR-NON AF CITIZ[place] OF [place]>60Normal>=60The [facility] HealthcareComment on above:Performed By: #### BMP #### [facility] [address] [address] [address] Evangelist ChicasGlucose [Mass/Vol]168 mg/dLCritically nezq22-480Dli [facility] HealthcareComment on above:Performed By: #### BMP #### [facility] [address] [place] [address] Dr. Evangelist ChicasPotassium [Moles/Vol]3.7 mmol/LNormal3.5-5.1[facility] Comment on above:Performed By: #### BMP #### [facility] [address] [place] [address] Dr. Evangelist Sorianodium [Moles/Vol]137 mmol/UAiskrr271-841Bpz [facility] Comment on above:Performed By: #### BMP #### [facility] [address] [place] [address] Dr. Evangelist ChicasUrea nitrogen [Mass/Vol]28.0 mg/dLCritically high7.0-18.0The [facility] HealthcareComment on above:Performed By: #### BMP #### [facility] [address] [place] [address] Dr. Evangelist Yousif nitrogen/Creatinine [Mass ratio]32.2 mg/mgNormalThMercy Health Willard HospitalComment on above:Performed By: #### BMP #### [facility] [address] [place] [address] Dr. Evangelist Pike AUTO DIFFon 40-07-9027KAEB #0.0 103/ulNormal0.0-0.1The [facility] HealthcareComment on above:Performed By: #### CBC #### [facility] [address] [place] [address] Dr. Evangelist ChicasBaaprilphils/100 WBC (Bld)0.2 %Normal0.2-2.0[facility] Comment on above:Performed By: #### CBC #### [facility] [address] [place] [address] Dr. Evangelist He #0.0 103/ulNormal0.0-0.7The [facility] HealthcareComment on above: Performed By: #### CBC #### [facility] [address] [address] [address] Evangelist Robertsosinophils/100 WBC (Bld)0.0 %Critically low0.9-7.0The [facility] HealthcareComment on above:Performed By: #### CBC #### [facility] [address] [place] [address] Dr. Evangelist Robertsrythrocyte distribution width (RBC) [Ratio]12.7 %Wgdijq78.0-15.0 The [facility] HealthcareComment on above:Performed By: #### CBC #### [facility] [address] [place] [address] Dr. Evangelist ChicasHematocrit (Bld) [Volume fraction]41.7 %Aecfsi89.0-48.0The [facility] HealthcareComment on above:Performed By: #### CBC #### [facility] [address] [place] [address] Dr. Evangelist ChicasHemoglobin (Bld) [Mass/Vol]13.0 g/jDEwseoj39.0-16.0The [facility] HealthcareComment on above:Performed By: #### CBC #### [facility] [address] [place] [address] Dr. Evangelist ChicasIG #0.03 10e3/ulNormal0.00-0.03The [facility] HealthcareComment on above:Performed By: #### CBC #### [facility] [address] [place] [address] Dr. Evangelist ChicasIG %0.5 %Normal0.0-0.5The [facility] HealthcareComment on above: Performed By: #### CBC #### [facility] [address] [place] [address] Dr. Evangelist CherryMPH #0.4 103/ulCritically low1.2-3.8The [facility] Comment on above:Performed By: #### CBC #### [facility] [address] [place] [address] Dr. Evangelist Cherrymphocytes/100 WBC (Bld)5.8 %Critically low20.5-60.0The [facility] HealthcareComment on above:Performed By: #### CBC #### [facility] [address] [place] [address] Dr. Evangelist Tanner DIFF REQNONormalThe [facility] HealthcareComment on above: Performed By: #### CBC #### [facility] [address] [place] [address] Dr. Evangelist Edge (RBC) [Entitic mass]29.3 idNjijmo61.7-34.0The [facility] HealthcareComment on above:Performed By: #### CBC #### [facility] [address] [place] [address] Dr. Evangelist Edge (RBC) [Mass/Vol]31.2 g/yHJsxttr08.9-35.2The [facility] HealthcareComment on above:Performed By: #### CBC #### [facility] [address] [place] [address] Dr. Evangelist Edge (RBC) [Entitic vol]93.9 pJCzyocx18.0-99.0The [facility] HealthcareComment on above:Performed By: #### CBC #### [facility] [address] [place] [address] Dr. Evangelist Mckinley #0.0 103/ulCritically low0.3-0.8The [facility] on above:Performed By: #### CBC #### [facility] [address] [place] [address] Dr. Evangelist Sanchezocytes/100 WBC (Bld)0.6 %Critically low1.7-12.0The [facility] HealthcareComment on above:Performed By: #### CBC #### [facility] [address] [place] [address] Dr. Evangelist Martínez #6.0 103/ulNormal1.4-6.5The [facility] on above:Performed By: #### CBC #### [facility] [address] [place] [address] Dr. Evangelist Wongutrophils/100 WBC (Bld)92.9 %Critically high43.0-75.0The [facility] HealthcareComment on above:Performed By: #### CBC #### [facility] [address] [address] [address] Evangelist ChicasPlatelet mean volume (Bld) [Entitic vol]10.8 fLNormal9.5-13.5The [facility] HealthcareComment on above:Performed By: #### CBC #### [facility] [address] [address] [address] Evangelist ChicasPLT141 103/ulCritically ikf636-181Vhk [facility] HealthcareComment on above:Performed By: #### CBC #### [facility] [address] [place] [address] Dr. Evangelist ChicasRBC4.44 106/ulNormal4.20-5.40The [facility] HealthcareComment on above:Performed By: #### CBC #### [facility] [address] [place] [address] Dr. Evangelist ChicasWBC6.4 103/ulNormal4.0-11.0The [facility] HealthcareComment on above: Performed By: #### CBC #### [facility] [address] [place] [address] Dr. Evangelist ChicasPROF CHEM 8 (BAS METB)on 58-17-8725Uyvfq gap [Moles/Vol]7.5 mmol/LNormalThe [facility] HealthcareComment on above:Performed By: #### BMP #### [facility] [address] [place] [address] Dr. Evangelist ChicasCalcium [Mass/Vol]8.9 mg/dLNormal8.5-10.1The [facility] Comment on above:Performed By: #### BMP #### [facility] [address] [place] [address] Dr. Evangelist ChicasChloride [Moles/Vol]100 mmol/NBgjdzx20-931Uvp [facility] Comment on above:Performed By: #### BMP #### [facility] [address] [place] [address] Dr. Evangelist ChicasCO2 [Moles/Vol]33.9 mmol/LCritically high21.0-32.0The [facility] HealthcareComment on above:Performed By: #### BMP #### [facility] [address] [address] [address] Evangelist ChicasCreatinine [Mass/Vol]0.65 mg/dLNormal0.55-1.02The [facility] HealthcareComment on above:Performed By: #### BMP #### [facility] [address] [address] [address] Evangelist RobertsGFR-AF CITIZEN OF [place]>60Normal>=60The [facility] HealthcareComment on above:Performed By: #### BMP #### [facility] [address] [address] [address] Evangelist RobertsGFR-NON AF CITIZEN [place]>60Normal>=60The [facility] HealthcareComment on above:Performed By: #### BMP #### [facility] [address] [place] [address] Dr. Evangelist ChicasGlucose [Mass/Vol]152 mg/dLCritically ycfk45-449Vbg [facility] HealthcareComment on above:Performed By: #### BMP #### [facility] [address] [address] [address] Evangelist ChicasPotassium [Moles/Vol]4.4 mmol/LNormal3.5-5.1The [facility] Comment on above:Performed By: #### BMP #### [facility] [address] [address] [address] Evangelist ChicasSodium [Moles/Vol]137 mmol/XUhbkas204-373Mxh [facility] Comment on above:Performed By: #### BMP #### [facility] [address] [address] [address] Evangelist ChicasUrea nitrogen [Mass/Vol]16.0 mg/dLNormal7.0-18.0The [facility] HealthcareComment on above:Performed By: #### BMP #### [facility] [address] [address] [address] Evangelist ChicasUrea nitrogen/Creatinine [Mass ratio]24.6 mg/mgNormalThe [facility]red HealthcareComment on above:Performed By: #### BMP #### [facility] [address] [place] [address] Dr. Evangelist Mendez [id number] peptide B (Bld) [Mass/Vol]330.0 pg/mL Normal<=900.0The Kindred HealthcareComment on above:Performed By: #### BMP #### [facility] [address] [place] [address] Dr. Evangelist Pop LIS ADMITon 40-62-8633RK [Catalytic activity/Vol]40 U/L Wdhxmu10-884Nfx [facility]red HealthcareComment on above:Performed By: #### DDIM #### [facility] [address] [place] [address] Dr. Evangelist Nunez.MB [Mass/Vol]1.06 ng/mLNormal<=3.60The [facility] Comment on above:Performed By: #### DDIM #### [facility] [address] [place] [address] Dr. Evangelist ChicasHSTROP21.6 pg/mLNormal4.0-51.3The Kindred HealthcareComment on above:Result Comment: CUT-OFF POINTS HAVE BEEN ESTABLISHED BASED ON THE FOURTH UNIVERSAL DEFINITIONS OF MYOCARDIAL INFARCTION. THE UPPER REFERENCE LIMIT (URL) OF TROPONIN, DEFINED THE 99TH PERCENTILE OF cTnI DISTRIBUTION IN A REFERENCE POPULATION, HAS BEEN CONFIRMED THE DECISION THRESHOLD FOR [place] DIAGNOSIS.Performed By: #### DDIM #### [facility] [address] [place] [address] Dr. Evangelist EliO41 ng/mLNormal9-82The [facility]red HealthcareComment on above: Performed By: #### DDIM #### [facility] [address] [place] [address] Dr. Evangelist Pike AUTO DIFFon [id number] #0.1 103/ulNormal0.0-0.1The [facility]red HealthcareComment on above:Performed By: #### BMP #### [facility] [address] [place] [address] Dr. Evangelist ChicasBasophils/100 WBC (Bld)0.7 %Normal0.2-2.0The [facility] Comment on above:Performed By: #### BMP #### [facility] [address] [place] [address] Dr. Evangelist He #0.1 103/ulNormal0.0-0.7The Kindred HealthcareComment on above: Performed By: #### BMP #### [facility] [address] [place] [address] Dr. Evangelist Robertsosinophils/100 WBC (Bld)1.1 %Normal0.9-7.0The [facility] Comment on above:Performed By: #### BMP #### [facility] [address] [place] [address] Dr. Evangelist Robertsrythrocyte distribution width (RBC) [Ratio]12.8 %Krffnv65.0-15.0 The [facility]red HealthcareComment on above:Performed By: #### BMP #### [facility] [address] [place] [address] Dr. Evangelist ChicasHematocrit (Bld) [Volume fraction]41.1 %Jccpdy67.0-48.0The [facility]red HealthcareComment on above:Performed By: #### BMP #### [facility] [address] [place] [address] Dr. Evangelist ChicasHemoglobin (Bld) [Mass/Vol]13.2 g/bHWqfsoh55.0-16.0The [facility]red HealthcareComment on above:Performed By: #### BMP #### [facility] [address] [place] [address] Dr. Evangelist Sage #0.02 10e3/ulNormal0.00-0.03The [facility]red HealthcareComment on above:Performed By: #### BMP #### [facility] [address] [place] [address] Dr. Evangelist Sage %0.3 %Normal0.0-0.5The Kindred HealthcareComment on above: Performed By: #### BMP #### [facility] [address] [place] [address] Dr. Evangelist Hooks #0.7 103/ulCritically low1.2-3.8The [facility] Comment on above:Performed By: #### BMP #### [facility] [address] [place] [address] Dr. Evangelist Johnsonhocytes/100 WBC (Bld)9.5 %Critically low20.5-60.0The [facility]red HealthcareComment on above:Performed By: #### BMP #### [facility] [address] [place] [address] Dr. Evangelist Tanner DIFF REQNONormalThe Kindred HealthcareComment on above: Performed By: #### BMP #### [facility] [address] [place] [address] Dr. Evangelist Edge (RBC) [Entitic mass]29.6 huRajfpv86.7-34.0The [facility]red HealthcareComment on above:Performed By: #### BMP #### [facility] [address] [place] [address] Dr. Evangelist Edge (RBC) [Mass/Vol]32.1 g/cHCtcxvm07.9-35.2The [facility]red HealthcareComment on above:Performed By: #### BMP #### [facility] [address] [place] [address] Dr. Evangelist Edge (RBC) [Entitic vol]92.2 qRDuyqyr20.0-99.0The [facility]red HealthcareComment on above:Performed By: #### BMP #### [facility] [address] [place] [address] Dr. Evangelist Mckinley #0.6 103/ulNormal0.3-0.8ThMercy Health Willard HospitalComment on above:Performed By: #### BMP #### [facility] [address] [place] [address] Dr. Evangelist Sanchezocytes/100 WBC (Bld)8.1 %Normal1.7-12.0[facility] Comment on above:Performed By: #### BMP #### [facility] [address] [place], [place] [id number] Dr. Evangelist WongUT #6.1 103/ulNormal1.4-6.5The [facility]red HealthcareComment on above:Performed By: #### BMP #### [facility] [address] [place] [address] Dr. Evangelist Wongutrophils/100 WBC (Bld)80.3 %Critically high43.0-75.0The [facility]red HealthcareComment on above:Performed By: #### BMP #### [facility] [address] [place] [address] Dr. Evangelist ChicasPlatelet mean volume (Bld) [Entitic vol]9.8 fLNormal9.5-13.5The [facility]red HealthcareComment on above:Performed By: #### BMP #### [facility] [address] [place] [address] Dr. Evangelist ChicasPLT180 103/ntSxjsvv900-143Cgz [facility]red HealthcareComment on above: Performed By: #### BMP #### [facility] [address] [place] [address] Dr. Evangelist ChicasRBC4.46 106/ulNormal4.20-5.40The [facility]red HealthcareComment on above:Performed By: #### BMP #### [facility] [address] [place] [address] Dr. Evangelist ChicasWBC7.6 103/ulNormal4.0-11.0The [facility]red HealthcareComment on above: Performed By: #### BMP #### [facility] [address] [place] [address] Dr. Evangelist Palacios CHEST WO W CONon 40-59-6023YBX CHEST WO W CONEXAMINATION:CTA CHEST WO W [...] by: DEL ENRIQUE Date: 2022-11-10 17:30NoUniversity Hospitals Cleveland Medical CenterCovid-19 PCR (CVDTBH)on 01-93-4677WHCI-CoV-2 (COVID-19) RNA SHENG+probe Ql (Unsp spec)Not detectedNormalNOT DETECTEDThe [facility] Comment on above:Result Comment: When diagnostic testing [...] for this test is supported by the [place] of Health and Human Service's declaration that [...] longer be used).Performed By: #### BMP #### [facility] [address] [place] [address] Dr. Evangelist Lee 05-94-8677H-DIMER0.63 mg/L FEUCritically high<=0.59[facility] on above:Performed By: #### DDIM #### [facility] [address] [place] [address] Dr. Evangelist Lees-DIMER COMMENTSE [facility] on above:Result Comment: Increases in D-Dimer [...] generalized hospitalization. Performed By: #### DDIM #### [facility] [address] [place] [address] Dr. Evangelist Alas URINE PROFILEon 55-80-9116Sillessai Ql (U)NegativeNormal NEGATIVETrihealth Bethesda Butler HospitalComascension [facility] on above:Performed By: #### NESHA, ERUR #### [facility] [address] [place] [address] Dr. Evangelist ChicasClarity (U)CLEARNormalCLEARHolzer Hospital on above: Performed By: #### NESHA, ERUR #### [facility] [address] [place] [address] Dr. Evangelist Delgadillo (U)LT. YELLOWNormalYELLOWTrihealth Bethesda Butler HospitalComascension st[facility] on above:Performed By: #### NESHA, ERUR #### [facility] [address] [place] [address] Dr. Evangelist CrumpPIPPA micrscopic examination will be performed if indicated. NormalTrihealth Bethesda Butler HospitalComascension [facility] on above:Performed By: #### NESHA, ERUR #### [facility] [address] [place] [address] Dr. Evangelist ChicasGlucose Ql (U)NegativeNormalNEGATIVETrihealth Bethesda Butler HospitalComasc[facility] on above:Performed By: #### NESHA, ERUR #### [facility] [address] [address] [address] Evangelist ChicasHemoglobin Ql (U)TRACE-INTACTAbnormalNEGATIVEThe [facility]red HealthcareComment on above:Performed By: #### NESHA ERUR #### [facility] [address] [address] [address] Evangelist Shethones Ql (U)NegativeNormalNEGATIVEThe [facility]aphine HospitalComment on above:Performed By: #### NESHA ERUR #### [facility] [address] [address] [address] Evangelist ChicasLEUKOCYTESNegativeNormalNEGATIVEThe [facility]red HealthcareComment on above:Performed By: #### NESHA ERUR #### [facility] [address] [place] [address] Dr. Evangelist Nietotrite Ql (U)NegativeNormalNEGATIVEThe [facility]red HealthcareComment on above:Performed By: #### NESHA ERUR #### [facility] [address] [place] [address] Dr. Evangelist ChicaspH (U)6.0 [pH]Normal5-9The [facility]red HealthcareComment on above: Performed By: #### NESHA ERUR #### [facility] [address] [place] [address] Dr. Evangelist Villanueva GRAVITY1.141Nublof1.005-<=1.025The [facility]red HealthcareComment on above:Performed By: #### NESHA ERUR #### [facility] [address] [place] [address] Dr. Evangelist Garcia PROTEINNegativeNormalNEGATIVE/ TRACEThe [facility] on above:Performed By: #### NESHA ERUR #### [facility] [address] [address] [address] Evangelist Mittal MICRO INDINDICATEDNoalThe Kindred HealthcareComment on above: Performed By: #### NESHA ERUR #### [facility] [address] [address] [address] Evangelist Colin Qn (U)0.2 {Amalia'U}/dLNormal0.2 - 1.0The [facility] Hospitalment on above:Performed By: #### LUIS E JEFFRIES #### [facility] [address] [place] [address] Dr. Evangelist Avina AND B AGon 38-67-5553EIQQSPMQZDFUIAdena Pike Medical CenterComment on above:Result Comment: Negative for Flu A protein angiten. Infection due to Flu A cannot be ruled out. FluA angiten in the sample may be below the detection limit of the test.Performed By: #### DDIM #### [facility] [address] [place] [address] Dr. Evangelist CervantesUBNEGMedina Hospital on above: Result Comment: Negative for Flu B protein antigen. Infection due to Flu B cannot be ruled out. FluB antigen in the sample may be below the detection limit of the test.Performed By: #### DDIM #### [facility] [address] [place] [address] Dr. Evangelist Avina AGNegativeNormalNEGATIVE SEE COMMENTThe [facility] on above:Performed By: #### DDIM #### [facility] [address] [place] [address] Dr. Evangelist Sellers AGNegativeNormalNEGATIVE SEE COMMENTThe [facility] on above:Performed By: #### DDIM #### [facility] [address] [place] [address] Dr. Evangelist ChicasPROF 14(COMP METB)on 96-77-4116Kocibua [Mass/Vol]3.1 g/dL Critically low3.4-5.0The [facility] on above:Performed By: #### BMP #### [facility] [address] [place] [address] Dr. Evangelist ChicasAlbumin/Globulin [Mass ratio]0.7 {ratio}NormalThe [facility] on above:Performed By: #### BMP #### [facility] [address] [address] [address] Evangelist VelazquezP [Catalytic activity/Vol]108 U/WNnanpz53-265Vtv [facility] HealthcareComment on above:Performed By: #### BMP #### [facility] [address] [address] [address] Evangelist VelazquezT [Catalytic activity/Vol]20 U/QGopmrb00-16Fls [facility] HealthcareComment on above:Performed By: #### BMP #### [facility] [address] [address] [address] Evangelist Soto gap [Moles/Vol]6.0 mmol/LNormalThe [facility]red HealthcareComment on above:Performed By: #### BMP #### [facility] [address] [place] [address] Dr. Evangelist ChicasAST [Catalytic activity/Vol]16 U/NXhurul96-74Uuo [facility] HealthcareComment on above:Performed By: #### BMP #### [facility] [address] [place] [address] Dr. Evangelist ChicasBilirubin [Mass/Vol]0.6 mg/dLNormal0.2-1.0The [facility] Comment on above:Performed By: #### BMP #### [facility] [address] [place] [address] Dr. Evangelist ChicasCalcium [Mass/Vol]9.1 mg/dLNormal8.5-10.1The [facility] Comment on above:Performed By: #### BMP #### [facility] [address] [place] [address] Dr. Evangelist ChicasChloride [Moles/Vol]97 mmol/LCritically wzg62-409Jlq [facility] HealthcareComasc[facility] on above:Performed By: #### BMP #### [facility] [address] [place] [address] Dr. Evangelist ChicasCO2 [Moles/Vol]36.9 mmol/LCritically high21.0-32.0The [facility]red HealthcareComment on above:Performed By: #### BMP #### [facility] [address] [address] [address] Evangelist ChicasCreatinine [Mass/Vol]0.71 mg/dLNormal0.55-1.02The [facility]red HealthcareComment on above:Performed By: #### BMP #### [facility] [address] [address] [address] Blanca ChangEGFR-AF CITIZEN OF [place]>60Normal>=60The [facility]red HealthcareComment on above:Performed By: #### BMP #### [facility] [address] [address] [address] Evangelist RobertsGFR-NON AF CITIZEN OF [place]>60Normal>=60The [facility]red HealthcareComment on above:Performed By: #### BMP #### [facility] [address] [place] [address] Dr. Evangelist ChicasGlobulin (S) [Mass/Vol]4.4 g/dLNormalThe [facility]red HealthcareComment on above:Performed By: #### BMP #### [facility] [address] [place] [address] Dr. Evangelist ChicasGlucose [Mass/Vol]124 mg/dLCritically jsrb69-844Vns [facility] HealthcareComment on above:Performed By: #### BMP #### [facility] [address] [place] [address] Dr. Evangelist ChicasPotassium [Moles/Vol]3.9 mmol/LNormal3.5-5.1The [facility] Comment on above:Performed By: #### BMP #### [facility] [address] [place] [address] Dr. Evangelist ChicasProtein [Mass/Vol]7.5 g/dLNormal6.4-8.2The [facility] Comment on above:Performed By: #### BMP #### [facility] [address] [place] [address] Dr. Evangelist ChicasSodium [Moles/Vol]136 mmol/QMjvcgo149-983Dto [facility] Comment on above:Performed By: #### BMP #### [facility] [address] [place] [address] Dr. Evangelist Yousif nitrogen [Mass/Vol]17.0 mg/dLNormal7.0-18.0The [facility]red HealthcareComment on above:Performed By: #### BMP #### [facility] [address] [place] [address] Dr. Evangelist Yousif nitrogen/Creatinine [Mass ratio]23.9 mg/mgNoUniversity Hospitals Cleveland Medical CenterComment on above:Performed By: #### BMP #### [facility] [address] [place] [address] Dr. Evangelist Acuña MICROSCOPIC ONLYon 10-89-0634RGEFJRDXPZOA SEENNormalNONE SEENTrihealth Bethesda Butler HospitalComascension st. [facility] on above:Performed By: #### NESHA, ERUR #### [facility] [address] [place] [address] Dr. Evangelist Dubois identified Cx Nom (U)NOT INDICATEDNoUniversity Hospitals Cleveland Medical CenterComment on above:Performed By: #### NESHA, ERUR #### [facility] [address] [place] [address] Dr. Evangelist Gabriel SEENNormalNONE SEENHolzer Hospital on above:Performed By: #### NESHA, ERUR #### [facility] [address] [place] [address] Dr. Evangelist Yoonystals LM Nom (Urine sed)NONE SEENNormalNONE SEENThe [facility] HealthcareComasc[facility] on above:Performed By: #### NESHA, ERUR #### [facility] [address] [place] [address] Dr. Blanca ChangElucianothelial cells LM Ql (Urine sed)FEWAbnormalNONE SEEN /RAREThe [facility] HealthcareComascension st. [facility] on above:Performed By: #### NESHA, ERUR #### [facility] [address] [place] [address] Dr. Evangelist MontgomeryCOUSSTEPHANIEE SEENNormalNONE SEENTrihealth Bethesda Butler HospitalComascension [facility] on above:Performed By: #### NESHA, ERUR #### [facility] [address] [address] [address] Blanca LromjAEH9-6Ahevge0-1Akb [facility] HealthcareComment on above:Performed By: #### LUIS E JEFFRIES #### [facility] [address] [id number] [address] Evangelist ChicasWBCNONE SEENNormalNONE SEENThe [facility]red HealthcareComment on above: Performed By: #### LUIS E JEFFRIES #### [facility] [address] [address] [address] Evangelist ChicasXR CHEST 1 Von 07-54-5031CT CHEST 1 VEXAMINATION: XR CHEST 1 V [...] authenticated by: JUAN DAVID JAIN Date: 2022-11-10 15:24[facility] Vital Signs Date TimeVital SignValuePerforming NejtlyngoIssexxdb65-88-5575 11:20-0400Body .56 cmMane Lee MD Work Phone: [facility]10-06-2025 11:20-0400 Body mass index (BMI) [Ratio]46.2 kg/m2Mane Lee MD Work Phone: [phone]-[facility]10-06-2025 11:20-0400 Body vfrtdoihhxu68.5 [degF]Mane Lee MD Work Phone: [phone]-[facility]10-06-2025 11:20-0400 Body dzrpoi931.07 kgMane Lee MD Work Phone: [facility]10-06-2025 11:20-0400 Diastolic blood pyrrpptv23 mm[Hg]Mane Lee MD Work Phone: [phone]10-06-2025 11:20-0400 Heart icuj407 /minMane Lee MD Work Phone: 1(354)[address] [place], [place] 615[address]10-06-2025 11:20-0400 Respiratory rate18 /minMane Lee MD Work Phone: [phone])[address] [place], [place] 615[address]10-06-2025 11:20-0400 SaO2% (BldA) [Mass fraction]95 %Mane Lee MD Work Phone: [phone])[address] [place], [place] 615[address]10-06-2025 11:20-0400 Systolic blood mm[Hg]Mane Lee MD Work Phone: [phone] [place], [place] 615[address]09-12-2025 10:06-0400 Body nyelut929.02 cmMane Lee MD Work Phone: [phone])[address] [place], [place] 615[address]09-12-2025 10:06-0400 Body mass index (BMI) [Ratio]46.7 kg/m2Mane Lee MD Work Phone: [phone])[address] [place], [place] 615[address]09-12-2025 10:06-0400 Body byyvbaxxius51.1 [degF]Mane Lee MD Work Phone: 1(417)[address] [place], [place] 6152909-12-2025 10:06-0400 Body rgafhc540.74 kgMane Lee MD Work Phone: [phone])[address] [place], [place] 615[address]09-12-2025 10:06-0400 Diastolic blood fznsaxwa02 mm[Hg]Mane Lee MD Work Phone: 1(435)[address] [place], [place] [address]09-12-2025 10:06-0400 Heart rate89 /minMane Lee MD Work Phone: [phone] [place], [place] 7[address]309-12-2025 10:06-0400 Respiratory rate20 /minMane Lee MD Work Phone: [facility]09-12-2025 10:06-0400 SaO2% (BldA) [Mass fraction]97 %Mane Lee MD Work Phone: [facility]09-12-2025 10:06-0400 Systolic blood amaazmeb266 mm[Hg]Mane Lee MD Work Phone: [phone]06-05-2025 10:22-0400 Body xeuxmq547.6 cmMane Lee MD Work Phone: [facility]linHrejarothp62-96-2116 10:22-0400Body mass index (BMI) [Ratio]46.35 kg/m2Mane Lee MD Work Phone: [facility]linYctriqqcpb47-20-9617 10:22-0400Body temperature 97.3 [degF]Mane Lee MD Work Phone: [facility]linUrfnewfqye95-14-2201 10:22-0400Body .47 kgMane Lee MD Work Phone: [facility]linFtdvwmktso96-78-9734 10:22-0400Diastolic blood mm[Hg]Mane Lee MD Work Phone: [facility]linWqwofcxkph36-98-8842 10:22-0400Heart rate87 /min Mane Lee MD Work Phone: [facility]linJxeejbzxgy42-13-1008 10:22-0400Respiratory rate20 /minMane Lee MD Work Phone: [facility]linVlbthnrxup76-75-3072 10:22-0271KpW8% (BldA) [Mass fraction]97 %Mane Lee MD Work Phone: [facility]linYqblfdmwte83-62-1023 10:22-0400Systolic blood oipdptsb456 mm[Hg]Mane Lee MD Work Phone: [facility]linHcjwsexxje88-95-5885 11:30-0400Body nqodvv651.6 cmMane Lee MD Work Phone: [facility]oplinPdvclwesss21-55-2537 11:30-0400Body mass index (BMI) [Ratio]46.86 kg/m2Mane Lee MD Work Phone: [facility]linYjkzyexxxi84-52-0145 11:30-0400Body temperature 97.81 [degF]Mane Lee MD Work Phone: [facility]oplinRniludclbr11-68-1736 11:30-0400Body jabdab941.83 kgMane Lee MD Work Phone: [facility]linCzedbzpzvn16-16-1988 11:30-0400Diastolic blood mm[Hg]Mane Lee MD Work Phone: [facility]linGjiethihep68-21-3564 11:30-0400Heart rate89 /min Mane Lee MD Work Phone: [facility]linUapgnwdqzv15-07-5447 11:30-0400Respiratory rate20 /minMane Lee MD Work Phone: [facility]linPlnskvfvsh02-09-2618 11:30-3194UxH5% (BldA) [Mass fraction]96 %Mane Lee MD Work Phone: [facility]oplinYoruspzxjo70-39-1975 11:30-0400Systolic blood odjftgbi487 mm[Hg]Mane Lee MD Work Phone: [facility]oplinBqatplhwsf10-44-0339 10:38-0500Body fjeuoq039.6 cmMane Lee MD Work Phone: [facility]linCkxfxamxyy72-92-9507 10:38-0500Body mass index (BMI) [Ratio]48.58 kg/m2Mane Lee MD Work Phone: [facility]linWjgbesjmoa13-08-0848 10:38-0500Body temperature 97.5 [degF]Mane Lee MD Work Phone: [facility]oplinGomkukqgku90-25-8655 10:38-0500Body .37 kgMane Lee MD Work Phone: [facility]oplinTdkukfkcgh36-48-4891 10:38-0500Diastolic blood bjclkpop43 mm[Hg]Mane Lee MD Work Phone: [facility]oplinLufglzasyg72-43-5602 10:38-0500Heart rate96 /min Mane Lee MD Work Phone: [facility]linYyoxfcockl23-56-6716 10:38-0500Respiratory rate22 /minMane Lee MD Work Phone: [facility]oplinQcqlvdktml85-97-6618 10:38-6953ApS9% (BldA) [Mass fraction]98 %Mane Lee MD Work Phone: [facility] JoplinWnesujskuv43-79-9387 10:38-0500Systolic blood mm[Hg]Mane Lee MD Work Phone: [facility]oplinHjgmznvhei42-69-4576 11:22-0400Body agkvma989 cm Mane Lee MD Work Phone: [facility]oplinYtfbldyzad26-07-0305 11:22-0400Body mass index (BMI) [Ratio]47.12 kg/m2Mane Lee MD Work Phone: [facility]linGsgafjjpgf65-38-4273 11:22-0400Body temperature 97.3 [degF]Mane Lee MD Work Phone: [facility]oplinXcbvtsovpl25-46-1026 11:22-0400Body rostyl611.66 kgMane Lee MD Work Phone: [facility]oplinAlslvjjocf54-56-0636 11:22-0400Diastolic blood thkgulmm90 mm[Hg]Mane Lee MD Work Phone: [facility]oplinIjfnhawgcz50-71-8403 11:22-0400Heart rate99 /min Mane Lee MD Work Phone: [facility]oplinRwziwpodny79-63-1759 11:22-0400Respiratory rate22 /minMane Lee MD Work Phone: [address] [address]Xlcixzjwsp15-60-0608 11:22-8663TzR6% (BldA) [Mass fraction]96 %Mane Lee MD Work Phone: 1(613)8-[address] [place], [place] [address]Vlglvgluiw72-87-1816 11:22-0400Systolic blood mraztjaq037 mm[Hg]Mane Lee MD Work Phone: [phone] JoplinJrdomzrlcb48-29-8835 10:31-0400Body nibywb543 cm Mane Lee MD Work Phone: 1(083)[facility] [place], [place] [address]Jvdfgwaibh14-64-8057 10:31-0400Body mass index (BMI) [Ratio]47.65 kg/m2Mane Lee MD Work Phone: 1(460)[address] [place], [place] 3983708-22-2024 10:31-0400Body temperature 97.11 [degF]Mane Lee MD Work Phone: 1(287)[address]08-22-2024 10:31-0400Body nzouev143.02 kgMane Lee MD Work Phone: 1(187)[address]08-22-2024 10:31-0400Diastolic blood oqtkdurj71 mm[Hg]Mane Lee MD Work Phone: [phone])[address] [place], [place] [address]Lrojpxcozr14-60-8692 10:31-0400Heart rate90 /min Mane Lee MD Work Phone: [facility]oplinOwyedziqmo56-36-0899 10:31-0400Respiratory rate22 /minMane Lee MD Work Phone: 1(201)6-[address] [place], [place] [address]Uhgigeyjvp97-66-9878 10:31-7716XsS4% (BldA) [Mass fraction]97 %Mane Lee MD Work Phone: [facility] JoplinIgwzgmlcak35-31-5425 10:31-0400Systolic blood ehdjenjz986 mm[Hg]Mane Lee MD Work Phone: [facility] JoplinBghnjwgcug63-78-5352 13:24-0500Body yedyeb412 cm Mane Lee MD Work Phone: 1([phone])046-[address] [place], [place] [address]Hitnmornoy42-06-3789 13:24-0500Body mass index (BMI) [Ratio]49.25 kg/m2Mane Lee MD Work Phone: [facility]oplinMexpkcmvlx89-83-1915 13:24-0500Body temperature 97.3 [degF]Mane Lee MD Work Phone: noM[facility] CenterZidpfnrsdo67-35-3991 13:24-0500Body hooeff422.1 kgMane Lee MD Work Phone: noMoberly [facility] Medical CenterNcnvjiaool85-86-2872 13:24-0500Diastolic blood laiqjguu08 mm[Hg]Mane Lee MD Work Phone: noMoberly [facility] Medical CenterCooluwrngn69-88-4812 13:24-0500Heart rate96 /min Mane Lee MD Work Phone: noMoberly Regional Medical CenterNejhokmnqj81-67-7538 13:24-5792ReA2% (BldA) [Mass fraction]96 %Mane Lee MD Work Phone: noMoberly Regional Medical CenterUggcntactd73-52-4085 13:24-0500Systolic blood zbmlwlus100 mm[Hg]Mane Lee MD Work Phone: noND Healthcare Encounters Encounter DateEncounter TypeCare ProviderFacilityStart: 09-07-2025 End: 86-69-0388Neohra flowsheetJr. Laurel Hayward DO Work Phone: noMS [facility]opaedicsStart: 09-07-2025 End: 15-56-7723Peuwmt flowsheetJr. Laurel Hayward DO Work Phone: noms [facility] [place] [facility]edicsStart: 09-07-2025 End: 31-25-0480Xtkzwo outpatient visit 25 minutesJr. Laurel Hayward DO Work Phone: NOMS [place] OrthopaedicsComment on above:Internal derangement of left knee (Primary Dx); Acute pain of left kneeStart: 09-07-2025 End: 63-89-4199iwvgkmdnswVQ., LAUREL HAYWARDNot AvailableStart: 08-15-2025 End: 08-47-4059xpzkydcouiHgqy Naderer MD Work Phone: [facility] Work Phone: Start: 08-15-2025 End: 52-98-8548Oubizjg encounter procedureMane Lee MD-[facility] Justin Work Phone: Start: 08-08-2025 End: 73-92-3694Beqvfsa encounter procedureMane Lee MD-CT Scan Main Clear Work Phone: Start: 08-08-2025 End: 75-71-6915kvgxkucmkaScaz Naderer MD Work Phone: [facility] Work Phone: Start: 07-22-2025 End: 63-99-3897tduwbjajxpKifo Naderer MD Work Phone: [facility] Work Phone: Start: 07-22-2025 End: 31-65-7315Ktmfxdu encounter procedureMane Lee MD-[facility] Bruno Work Phone: Start: 05-27-2025 End: 91-42-3227EtjojrJzie Naderer MD Work Phone: noms CWM FMComment on above:Class 3 severe obesity due to excess calories with serious comorbidity and body mass index (BMI) of45.0 to 49.9 in adult ([facility])Start: 04-14-2025 End: 89-71-6211Pnokmj flowsAshley Lee MD Work Phone: noms CWM FMStart: 04-14-2025 End: 63-27-2258Kaxduc flowsAshley Lee MD Work Phone: noms CWM FMStart: 04-14-2025 End: 27-00-5908Kmsnin outpatient visit 25 minutesMane Lee MD Work Phone: NOMS CWM FMComment on above:Essential hypertension, benign (CMS/HCC) (Primary Dx); Chronic obstructive pulmonary disease, unspecified COPD type (CMS/HCC); Leg edema; Class 3 severe obesity due to excess calories with serious comorbidity and body mass index (BMI) of45.0 to 49.9 in adultStart: 04-14-2025 End: 75-56-3866fjktfezrnxGNRS NADERERNot AvailableStart: 03-22-2025 End: 63-28-1335HpbaikZils Naderer MD Work Phone: noms CWM FMComment on above:Class 3 severe obesity due to excess calories with serious comorbidity and body mass index (BMI) of45.0 to 49.9 in adultStart: 02-14-2025 End: 31-42-3404Haxrmvmeka Lee MD Work Phone: NO CWM FMStart: 02-14-2025 End: 71-24-1041Vnlnwwmeka Lee MD Work Phone: noms CWM FMStart: 02-14-2025 End: 27-97-3782Npwwbx outpatient visit 25 minutesMane Lee MD Work Phone: noms CWM FMComment on above:Essential hypertension, benign (CMS/HCC) (Primary Dx); Chronic obstructive pulmonary disease, unspecified COPD type (CMS/HCC); Leg edema; Class 3 severe obesity due to excess calories with serious comorbidity and body mass index (BMI) of45.0 to 49.9 in adultStart: 02-14-2025 End: 64-37-9674mkrgksnheiSOZM NADERERNot AvailableStart: 01-12-2025 End: 80-72-2062Kqkdqeezk Result EncounterMane Lee MD Work Phone: noms External Department UnsolicitedStart: 01-12-2025 End: 39-34-5571Cgsmktyym Result EncounterMane Lee MD Work Phone: noms External Department UnsolicitedStart: 01-10-2025 End: 81-81-4822Dzzqyz Darron Lee MD Work Phone: noms CWM FMStart: 01-10-2025 End: 78-16-6488Goybil Darron Lee MD Work Phone: noms CWM FMStart: 01-10-2025 End: 63-36-4737Warpvlx encounter procedureMane Lee MD Work Phone: noms HealthcareStart: 01-10-2025 End: 54-45-3196Jaltcvyx preventive med est patient 40-64yrsMarc Jesus BACK Work Phone: noms CWM FMComment on above:Annual physical exam (Primary Dx); Essential hypertension, benign (CMS/HCC); Chronic obstructive pulmonary disease, unspecified COPD type (CMS/HCC); Class 3 severe obesity due to excess calories with serious comorbidity and body mass index (BMI) of45.0 to 49.9 in adult (CMS/HCC); Cigarette smokerStart: 01-10-2025 End: 79-31-1967ickabtrarcMDXV NADERERNot AvailableStart: 08-04-2024 End: 60-65-4761Gweilw Darron Lee MD Work Phone: noms CWM FMStart: 08-04-2024 End: 65-09-9735Ecvsbn Darron Lee MD Work Phone: noms CWM FMStart: 08-04-2024 End: 08-94-8977Tcgoue outpatient visit 15 minutesMane Lee MD Work Phone: noms CWM FMComment on above:Acute bronchitis due to other specified organisms (Primary Dx); Essential hypertension, benign (CMS/HCC); Spinal stenosis, lumbar region, without neurogenic claudication; Vitamin D deficiency; Degeneration of lumbar intervertebral disc; Lower extremity edema; Moderate COPD (chronic obstructive pulmonary disease) (CMS/HCC)Start: 07-01-2024 End: 87-90-5903Quqrzr Darron Lee MD Work Phone: noms CWM FMStart: 07-01-2024 End: 98-89-6648Sbhhuy flowsAslhey Lee MD Work Phone: noms CWM FMStart: 07-01-2024 End: 65-57-8097Urlorp outpatient visit 25 minutesMane Lee MD Work Phone: noms CWM FMComment on above:Essential hypertension, benign (CMS/HCC) (Primary Dx); Leg edema; Chronic obstructive pulmonary disease, unspecified COPD type (CMS/HCC); Degenerative lumbar spinal stenosis; Morbid obesity due to excess calories (CMS/HCC)Start: 06-25-2024 End: 78-85-1283Qfpruusqh Result EncounterMane Lee MD Work Phone: noms External Department UnsolicitedStart: 06-25-2024 End: 33-43-0627Sykcjtauz Result EncounterMane Lee MD Work Phone: noms External Department UnsolicitedStart: 03-22-2024 End: 01-66-3105ctxlflxhzoRrckccs Vytautas Giedraitis MDFacility:PM [facility] Start: 01-26-2024 End: 97-07-0512upkjjndqviGfpgibt Vytautas Giedraitis MDFacility:PM [facility] Start: 12-29-2023 End: 34-64-1526hhyrahhfmzOfnpiaz Vytautas Giedraitis MDFacility:PM [facility] Start: 36-85-6360Mnmztg Darron Lee MD Work Phone: NOFF CWM FMStart: 43-37-2812Inzwtg Darron Lee MD Work Phone: NOZL CWM FMStart: 12-23-2023 End: 80-05-9273Wkifvh outpatient visit 25 minutesMane Lee MD Work Phone: noms CWM FMComment on above:Essential hypertension, benign (CMS/HCC) (Primary Dx); Degenerative lumbar spinal stenosis; Lumbar disc herniation with radiculopathy; Leg edema; Chronic obstructive pulmonary disease, unspecified COPD type ([facility]/HCC)Start: 12-10-2023 End: 93-19-6345xdmeezkcolCB Mane Lee Work Phone: [facility] Work Phone: Start: 12-10-2023 End: 60-04-8022Fkyivhw encounter procedureMD Mane Lee Work Phone: [facility]Ray [facility] Work Phone: Start: 08-25-2023 End: 86-56-3213albvfkyspwWzmrclh Vytautas Giedabby BACKFacility:PM [facility] Start: 01-29-2023 End: 60-43-7453eaxiyacuywSQ MANE DOWNINGERERFacility:R4Cwhey: 11-10-2022 End: 72-68-5838Uqhgibzhhv and management of inpatientDR MANE LEE Facility:H1 Procedures DateProcedureProcedure DetailPerforming ClinicianStart: 58-79-2319VE of lungs Mane Lee MD Work Phone: Start: 23-20-0340ZSV CBC WITH AUTO DIFFMane Lee MD Work Phone: Start: 10-47-2410GY TOMOSYNTHESIS SCREENING BIMarc Jesus BACK Work Phone: Start: 62-20-6331BdpozjtiwzlDwxv Naderer MD Work Phone: Start: 81-37-3069U-ray of lumbar spine, six views including bending viewsMD Mane Lee Work Phone: Start: 08-38-8897TnxvgcrrmvqKopw Naderer MD Work Phone: Start: 34-65-4282BgyhaleeivhJekz Naderer MD Work Phone: History of decompression of median nerveHistory of carpal tunnel releaseMane Lee MD Work Phone: Plan of Treatment DateCare ActivityDetailAuthorStart: 49-34-0917Tldmvmkwn for malignant neoplasm of colonNOMS HealthcareStart: 09-27-2025 End: 96-97-4133Uqvhegs encounter yxgnuexyo45/18/2025 2:00 PM EST Office Visit [facility] [address] [place] [phone] Ina Peterson PA [address] [place] [address] [facility]icsStart: 09-07-2025 End: 46-37-3309Ktupmue encounter euajoqims49/29/2025 10:15 AM EDT Office Visit [facility] [address] [facility] [place] [address] [place] [address] Jr. Laurel Hayward, DO [address] [place] [address] [facility] Comment on above:ArrivedStart: 60-07-8278Seotjnf referralMercy Hospital Work Phone: Start: 07-22-2025 End: 20-39-7487Hjtxnro encounter ynvnxidwv25/12/2025 10:00 AM EDT Office Visit NOMRomeo [place] [address] [place] [address] Mane Lee MD [address] [place] [address] NOMoRmeo [place] FMStart: 24-81-1071MPXXX-19 Vaccine ( season)COVID-19 Vaccine ( season)NOMS HealthcareStart: 81-72-9225Eivguaunm vaccinationInfluenza Vaccine (#1)NOMS HealthcareStart: 08-10-6380Nbpcpwweg for malignant neoplasm of breastMammogramNOMS HealthcareStart: 04-14-2025 End: 84-04-8328Wuhivqo encounter wfjwweine74/05/2025 10:15 AM EDT Office Visit NOMS C[facility] FM [address] [place] [address] Mane Lee MD [address] [place] [address] NOMS CW FMStart: 04-12-2025 End: 44-31-0972Lbyvljj encounter vsflgaacn06/03/2025 10:30 AM EDT Office Visit [facility] [address] [place] [address] Mane Lee MD [address] [place] [address] NOMS [facility] FMStart: 02-14-2025 End: 38-03-8117Iyjcogs encounter procedureNOALLIANCEHEALTH [facility] [place] FMComment on above:Arrived Start: 01-10-2025 End: 39-16-2313Byaco metabolic 1998 panel - Serum or PlasmaBasic metabolic panel Lab Routine Annual physical exam Expected: 01/10/2025 (Approximate), Expires: 01/10/2026NOND HealthcareComment on above:Expected: 01/10/2025 (Approximate), Expires: 01/10/2026Start: 01-10-2025 End: 15-92-3470ZWH W Auto Differential panel - BloodCBC and differential Lab Routine Annual physical exam Expected: 01/10/2025 (Approximate), Expires: 0 01/10/2026NOND HealthcareComment on above:Expected: 01/10/2025 (Approximate), Expires: 01/10/2026Start: 01-10-2025 End: 74-18-5578DV Chest for screening WO contrastCT lung screening low dose Imaging Routine Cigarette smoker Expected: 01/10/2025, Expires: 01/10/2026NOND HealthcareComment on above:Expected: 01/10/2025, Expires: 01/10/2026Start: 01-10-2025 End: 37-83-2179Rtefckltde A1c/Hemoglobin.total in BloodHemoglobin A1c Lab Routine Annual physical exam Expected: 01/10/2025 (Approximate), Expires: 01/10/2026N[facility] Work Phone: Comment on above:Expected: 01/10/2025 (Approximate), Expires: 01/10/2026Start: 01-10-2025 End: 01-69-3029Qtftpyn function 2000 panel - Serum or PlasmaHepatic function panel Lab Routine Annual physical exam Expected: 01/10/2025 (Approximate), Expires: 01/10/2026NOND HealthcareComment on above:Expected: 01/10/2025 (Approximate), Expires: 01/10/2026Start: 01-10-2025 End: 00-25-3761Txgmi 1996 panel - Serum or PlasmaLipid panel Lab Routine Annual physical exam Expected: 01/10/2025 (Approximate), Expires: 01/10/2026NOND HealthcareComment on above:Expected: 01/10/2025 (Approximate), Expires: 01/10/2026Start: 01-10-2025 End: 23-02-1445Vcicmnbuvog [Units/volume] in Serum or PlasmaTSH Lab Routine Annual physical exam Expected: 01/10/2025 (Approximate), Expires: 01/10/2026NOND HealthcareComment on above:Expected: 01/10/2025 (Approximate), Expires: 01/10/2026Start: 01-10-2025 End: 61-23-4257Pafupfw encounter procedureNOMS CWM FMComment on above:Arrived Start: 31-37-3728Kdsqnnxpa vaccinationInfluenza Vaccine (#1)[facility] Healthcare Start: 07-01-2024 End: 53-25-3674Mzcoeln encounter etngzycth83/22/2024 10:30 AM EDT Office Visit [facility] [address] [place] [address] Mane Lee MD [address] [place] [address] ArrivedNOMS CWM FMComment on above:ArrivedStart: 02-24-2024 End: 87-95-3724Nhworbv encounter cmyanyblv20/16/2024 9:00 AM EDT Office Visit [facility] [address] [place] [phone] Mane Lee MD [address] [place] [address] NOMS CWM FMStart: 23-35-9751Gxpyefgvi for malignant neoplasm of breast MammogramNOMS HealthcareStart: 12-23-2023 End: 37-97-8901Leycjwn encounter qtcevpzgj30/13/2024 1:15 PM EST Office Visit [facility] [address] [place] [address] Mane Lee MD [address] [place] [address] ArrivedNOMS CWM FMComment on above:ArrivedStart: 78-74-5391Ofddafnou for malignant neoplasm of cervixNOMS HealthcareStart: 19-24-0368Yzrbogglg for malignant neoplasm of cervixPap SmearNOMS HealthcareStart: 1982 Pneumococcal Vaccine: Pediatrics (0 to 5 Years) and At-Risk Patients (6 to 64 Years) (1 of 2 - PCV)Pneumococcal Vaccine: Pediatrics (0 to 5 Years) and At-Risk Patients (6 to 64 Years) (1 of 2 - PCV)NOMS HealthcareStart: 1970 DTaP/Tdap/Td Vaccines (1 - Tdap)DTaP/Tdap/Td Vaccines (1 - Tdap)NOM Healthcare Start: 74-41-4735GCA Vaccines (1 of 1 - Standard series)MMR Vaccines (1 of 1 - Standard series)NOM HealthcareStart: 28-20-5612Jabrdjily for malignant neoplasm of colonNOMS HealthcareMR Knee - left WO [facility] Work Phone: Immunizations Immunization DateImmunizationNotesCare CrndcxtiDgvuckgf78-39-8875wprkxkusx virus vaccine, unspecified formulationMane Lee MD Work Phone: [facility] JoplinZhcafmdynv39-94-4653itnjhaqxe virus vaccine, unspecified formulationMane Lee MD Work Phone: [facility] Payers DatePayer CategoryPayerPolicy [id number]-[id number] Cross Blue [id number] [id number] 1.2.840.484103.1.13.693.2.7.3.230[id number] 2.16.840.1.460944.3.57[id number] 2.16.840.1.707735.3.57[id number] 2.16.840.1.189647.3.57[id number] 2.16.840.1.624914.3.57[id number] 2.16.840.1.758825.3.57[id number] 2.16.840.1.564015.3.579.[id number] 2.16.840.1.500785.3.57[id number] 2.16.840.1.495948.3.57[id number] 2..0.1.385111.3.579.2.436336-32-2903Megclvv7434824 2..840.1.728024.3.57[id number] 2.0.1.618796.3.579.2.301576-95-9776LmybbfrATP616D68815SbrjqbePDU [id number] 01137j43-0912-7rq9-p1sk-[id number] 2.0.1.829389.3.579.2.531 Social History DateTypeDetailFacilityTobacco smoking status NHISUnknown if ever smokedPromedica Toledo Hospital Work Phone: Start: 62-59-3702Mzv [facility]: 10-31-2023 End: 51-89-7910Ahhemix smoking status NHISSmokes tobacco dailyNOMS Healthcare History of tobacco useCigarette SmokerNOMS HealthcareStart: 10-31-2023 End: 86-51-4303Dbtudwlphw smoked current (pack per day) - Reported0.5NOMS HealthcareStart: 46-50-6876Wpsrwvo use and exposureSmokeless tobacco non-user NOMS HealthcareStart: 11-26-2023 End: 02-69-8200Dkufqlaufpz, Afraid, Rape, and Kick questionnaire [HARK]NOMS HealthcareWithin the last year, have you been afraid of your partner or ex-partner?NoNOMS HealthcareAre you now , , , , never or living with a partner?WidowedNOMS HealthcareHow often to you have a drink containing alcohol?NeverNOMS HealthcareStart: 21-95-2510Ymz many standard drinks containing alcohol do you [...] before (I/we) got money to buy more.Never trueNOND HealthcareStart: 70-91-8155Rsk Assigned At BirthNot on fileNOND HealthcareSexFemale (finding)[facility] Clinical Notes 12-23-2023 to 09-07-2025 Note Date & ZoiwNhpzKbqduskl35-60-1731 History of Present illness Narrative* Jr. Laurel [...] KNEE XRAY (L) KNEE TODAY, 09/07/25 IN [facility] MRI (L) KNEE 08/23/25 @[facility] (IN CHANGE) [...] Allergies Allergen Reactions Ciprofloxacin documented in this encounterMercy Hospital JoplinTfmxqllyqg17-09-1792 Hospital Discharge instructionsAmbulatory Orders* Referral to Orthopedic Surgery Time Frame: 08/15/25, Location: None Selected [facility] Work Phone: 1(406) 584-749209-29-2025 Radiology Diagnostic study notePROMEDICA B[facility] Main Clear [address] [place] [address] CT Scan Report Signed Patient: Lawrence Harrison MR#: [id number] : 1965 Acct:[id number] Age/Sex: 59 / F ADM Date: 5 Loc: CT Room: Type: [facility] Attending Dr: Mane Lee MD Copies to: [...] Jr., D.O. 08/08/2025 12:43 PM Dictation Location: [place] [address] Transcribed By: [facility] 08/08/25 1243 Dictated By: Owen Smith Jr, DO 08/08/25 1242 Signed By: 08/08/25 1243 [facility]09-12-2025 Evaluation note* Diagnosis Onset Date Resolution Status Admit Date Benign essential HTN acuteSeptember 2024 9:49amClass 3 severe obesity due to excess calories with serious comorbidity andacuteSeptember 2024 9:49amCOPD (chronic obstructive pulmonary disease)acuteSeptember 2024 9:49amDegenerative lumbar spinal stenosisacuteSeptember 2024 9:49amLeg edemaacuteSeptember 2024 9:49amPrimary osteoarthritis of left kneeacuteSeptember 2024 9:49am [facility] Work Phone: [phone]) 349-391809-12-2025 Evaluation note* Diagnosis Onset Date Resolution Status Admit Date Benign essential HTN acuteSeptember 2024 9:49amClass 3 severe obesity due to excess calories with serious comorbidity andacuteSeptember 2024 9:49amCOPD (chronic obstructive pulmonary disease)acuteSeptember 2024 9:49amDegenerative lumbar spinal stenosisacuteSeptember 2024 9:49amLeg edemaacuteSeptember 2024 9:49amPrimary osteoarthritis of left kneeacuteSeptember 2024 9:49amInternal derangement of left kneeacuteOctober 2024 10:57am [facility] Work Phone: 1([phone]) 235-669606-05-2025 History of Present illness Narrative* Mane Lee MD - 04/14/2025 11:08 AM EDTAssociated Problem(s): Leg edema Edema controlled with lasix. Elevate legs PRN. * Mane Lee MD - 04/14/2025 11:08 AM EDTAssociated Problem(s): Essential hypertension, benign ([facility]/HCC) BP controlled and monitor PRN. * Mane Lee MD - 04/14/2025 11:08 AM EDTAssociated Problem(s): COPD (chronic obstructive pulmonary disease) ([facility]) Breathing stable and encouraged to quit smoker. [...] legs PRN. COPD (chronic obstructive pulmonary disease) ([facility]) Breathing stable and encouraged to quit smoker. [...] (Adipex-P) 37.5 MG tablet documented in this encounterMercy Hospital JoplinEqykauixtu04-87-1720 History of Present illness Narrative* Mane Lee [...] worsening symptoms contact office. documented in this encounterMercy Hospital JoplinMokrftvmln44-41-4500 History of Present illness Narrative* Mane Lee MD - 01/10/2025 11:07 AM ESTAssociated Problem(s): Cigarette smoker Check low dose CT chest * Mane Lee MD - 01/10/2025 11:06 AM ESTAssociated Problem(s): Essential hypertension, benign ([facility]) BP elevated today but previously controlled. Monitor PRN. * Mane Lee MD - 01/10/2025 11:06 AM ESTAssociated Problem(s): COPD (chronic obstructive pulmonary disease) ([facility]) Breathing stable and encouraged to quit smoker. Continue inhalers. * Mane Lee MD - 01/10/2025 11:06 AM ESTAssociated Problem(s): Class 3 severe obesity due to excess calories with serious comorbidity and body mass index (BMI) of 45.0 to 49.9 in adult ([facility]) Patient overweight and difficult time losing weight. [...] low dose CT chest documented in this encounterMercy Hospital JoplinDprcckkeri84-94-5648 History of Present illness Narrative* Mane Lee [...] (Deltasone) 50 MG tablet documented in this encounterMercy Hospital JoplinWzycuhbjsr49-49-1981 History of Present illness Narrative* Mane Lee [...] (Adipex-P) 37.5 MG tablet documented in this encounterMercy Hospital JoplinPzqsxjalbh54-77-0691 History of Present illness Narrative* Mane Lee [...] off work until 03/08/24. documented in this encounterNOND HealthcareEvaluation noteNo assessment information availableC[facility] Clinic [facility] Work Phone: Evaluation note* Diagnosis Essential hypertension, benign (CMS/HCC)- Primary Essential hypertension, benign Degenerative lumbar spinal stenosis Spinal stenosis of lumbar region Lumbar disc herniation with radiculopathy Displacement of lumbar intervertebral disc without myelopathy Leg edema Edema Chronic obstructive pulmonary disease, unspecified COPD type (CMS/HCC) documented in this encounter [facility] HealthcareEvaluation note* Diagnosis Essential hypertension, benign (CMS/HCC)- Primary Essential hypertension, benign Leg edema Edema Chronic obstructive pulmonary disease, unspecified COPD type (CMS/HCC) Degenerative lumbar spinal stenosis Spinal stenosis of lumbar region Morbid obesity due to excess calories (CMS/HCC) documented in this encounter [facility] HealthcareEvaluation note* Diagnosis Acute bronchitis due to other specified organisms- Primary Essential hypertension, benign (CMS/HCC) Essential hypertension, benign Spinal stenosis, lumbar region, without neurogenic claudication Vitamin D deficiency Degeneration of lumbar intervertebral disc Degeneration of lumbar or lumbosacral intervertebral disc Lower extremity edema Edema Moderate COPD (chronic obstructive pulmonary disease) (CMS/HCC) documented in this encounter [facility] HealthcareEvaluation note* Diagnosis Essential hypertension, [...] 49.9 in adult documented in this encounter [facility] HealthcareEvaluation note* Diagnosis Essential hypertension, [...] 49.9 in adult documented in this encounter [facility] HealthcareEvaluation note* Diagnosis Essential hypertension, benign- [...] index (BMI) of45.0 to 49.9 in adult ([facility]) Cigarette smoker Tobacco use disorder Essential hypertension, benign- Primary Essential hypertension, benign Chronic obstructive pulmonary disease, unspecified COPD type (HCC) Leg edema Edema Class 3 severe obesity due to excess calories with serious comorbidity and body mass index (BMI) of45.0 to 49.9 in adult ([facility]) Essential hypertension, benign- Primary Essential hypertension, benign Chronic obstructive pulmonary disease, unspecified COPD type (HCC) Leg edema Edema Class 3 severe obesity due to excess calories with serious comorbidity and body mass index (BMI) of45.0 to 49.9 in adult ([facility]-HCC) Class 3 severe obesity due to excess calories with serious comorbidity and body mass index (BMI) of45.0 to 49.9 in adult ([facility]) documented in this encounter [facility] HealthcareEvaluation note* Diagnosis Onset Date Resolution Status Admit Date Benign essential HTN acuteSept2024 9:49amClass 3 severe obesity due to excess calories with serious comorbidity andacuteSeptember 2024 9:49amCOPD (chronic obstructive pulmonary disease)acuteSeptember 2024 9:49amDegenerative lumbar spinal stenosisacuteSept2024 9:49amLeg edemaacuteSeptember 2024 9:49amPrimary osteoarthritis of left kneeacuteSept2024 9:49am [facility] Work Phone: Evaluation note* Diagnosis Essential hypertension, benign- Primary Degenerative lumbar spinal stenosis Spinal stenosis of lumbar region Lumbar disc herniation with radiculopathy Displacement of lumbar intervertebral disc without myelopathy Morbid obesity ([facility]) Morbid obesity Essential hypertension, benign- Primary Degenerative lumbar spinal stenosis Spinal stenosis of lumbar region Leg edema Edema Morbid obesity ([facility]-HCC) Morbid obesity Essential hypertension, benign- Primary [...] Edema Morbid obesity due to excess calories ([facility]) Body mass index [BMI] 45.0-49.9, adult (Z68.42) Essential hypertension, benign- Primary Chronic obstructive pulmonary disease, unspecified COPD type (HCC) Degenerative lumbar spinal stenosis Spinal stenosis of lumbar region Leg edema Edema Breast cancer screening by mammogram Morbid obesity due to excess calories ([facility]) Body mass index [BMI] 45.0-49.9, adult (Z68.42) Essential hypertension, benign- Primary Chronic obstructive pulmonary disease, unspecified COPD type (HCC) Degenerative lumbar spinal stenosis Spinal stenosis of lumbar region Leg edema Edema Morbid obesity due to excess calories ([facility]) Injury of ulnar collateral ligament of wrist, right, initial encounter Essential hypertension, benign- Primary Leg edema Edema Chronic obstructive pulmonary disease, unspecified COPD type (HCC) Degenerative lumbar spinal stenosis Spinal stenosis of lumbar region Morbid obesity due to excess calories ([facility]) Annual physical exam- Primary Routine general medical examination at a health care facility Essential hypertension, benign Chronic obstructive pulmonary disease, unspecified COPD type (HCC) Class 3 severe obesity due to excess calories with serious comorbidity and body mass index (BMI) of45.0 to 49.9 in adult ([facility]) Cigarette smoker Tobacco use disorder Essential hypertension, benign- Primary Chronic obstructive pulmonary disease, unspecified COPD type (HCC) Leg edema Edema Class 3 severe obesity due to excess calories with serious comorbidity and body mass index (BMI) of45.0 to 49.9 in adult ([facility]) Essential hypertension, benign- Primary Chronic obstructive pulmonary disease, unspecified COPD type (HCC) Leg edema Edema Class 3 severe obesity due to excess calories with serious comorbidity and body mass index (BMI) of45.0 to 49.9 in adult ([facility]) Internal derangement of left knee- Primary Acute pain of left knee Acute pain of left knee documented in this encounter [facility] for referral (narrative)No reason for referral information availableMer[facility] Work Phone: Summary Purpose Family History [...] and content) DATE CREATED AUTHOR 02/02/2023 [facility] DATE CREATED AUTHOR AUTHOR'S ORGANIZ ATION 03/27/2024 [facility] DATE CREATED AUTHOR AUTHOR'S ORGANIZ ATION 08/14/2025 [facility] DATE CREATED AUTHOR AUTHOR'S ORGANIZ ATION 09/11/2025 [facility] EPIC Care Teams (unrecognized [...] Lee MD [address] [place] [address] PCP - GeneralFamily Medicine12/23/23Team MemberRelationshipSpecialtyStart DateEnd Date Mane Lee MD [address] [place] [address] PCP - Generalmily Medicine12/23/23Team MemberRelationshipSpecialtyStart DateEnd Date Mane Lee MD [address] [place] [address] PCP - GeneralFamily Medicine12/23/23 Mane Lee MD [address] [place] [address] PCP - [employer]01/09/24Team MemberRelationshipSpecialtyStart DateEnd Date Mane Lee MD [address] [place] [address] PCP - Generalmily Medicine12/23/23 Mane Lee MD [address] [place] [address] PCP - [employer]01/09/24Team MemberRelationshipSpecialtyStart DateEnd Date Mane Lee MD [address] [place] [address] PCP - GeneralFamily Medicine12/23/23 Mane Lee MD [address] [place] [address] PCP - [employer]01/09/24Team MemberRelationshipSpecialtyStart DateEnd Date Mane Lee MD [address] [place] [address] [facility] - [facility]12/23/23 Mane Lee MD [address] [place] [address] PCP - [employer]01/09/24Team MemberRelationshipSpecialtyStart DateEnd Date Mane Lee MD [address] [place] [address] [facility]/23 Mane Lee MD [address] [place] [address] PCP - [employer]01/09/24Team MemberRelationshipSpecialtyStart DateEnd Date Mane Lee MD [address] [place] [address] [facility] - [facility]12/23/23 Mane Lee MD [address] [place] [address] PCP - [employer]01/09/24Team MemberRelationshipSpecialtyStart DateEnd Date Mane Lee MD [address] [place] [address] PCP - Generalmily Medicine12/23/23 Mane Lee MD [address] [place] [address] PCP - [employer]01/09/24Team MemberRelationshipSpecialtyStart DateEnd Date Mane Lee MD [address] [place] [address] PCP - [facility] Medicine12/23/23 Mane Lee MD [address] [place] [address] PCP - [facility]01/09/24Team MemberRelationshipSpecialtyStart DateEnd Date Mane Lee MD [address] [place] [address] PCP - [facility]12/23/23 Mane Lee MD [address] [place] [address] PCP - [facility]01/09/24Team MemberRelationshipSpecialtyStart DateEnd Date Mane Lee MD [address] [place] [address] PCP - [facility] Medicine12/23/23 Mane Lee MD [address] [place] [address] PCP - [employer]01/09/24Team MemberRelationshipSpecialtyStart DateEnd Date Mane Lee MD [address] [place] [address] PCP - [facility] Medicine12/23/23 Mane Lee MD [address] [place] [address] PCP - [employer]01/09/24 Team Status: Inactive Member Role Status Dates Mane Lee MD Primary Care Provider Active S tart: July 22, 2025 End: July 22, 2025Mar Nigel Lee ProviderActiveStart: July 22, 2025 End: July 22, 2025 Team Status: Inactive Member Role Status Dates Mane Lee MD Primary Care Provider Active S tart: August 08, 2025 End: August 08, 2025[facility] Nigel Lee ProviderActiveStart: August 08, 2025 End: August 08, 2025 Team Status: Inactive Member Role Status Dates Mane Lee MD Primary Care Provider Active S tart: August 15, 2025 End: August 15, 2025[facility] Nigel Lee ProviderActiveStart: August 15, 2025 End: August 15, 2025Team MemberRelationshipSpecialtyStart DateEnd Date Mane Lee MD [address] [place] [address] PCP - [employer]01/09/24 Mane Lee MD [address] [place] [address] PCP - [facility] Qefyjscc61/20/25Team MemberRelationshipSpecialtyStart Date End Date Mane Lee MD PCP - [facility]12/23/2409 Mane Lee MD [address] [place] [address] PCP - [employer]01/09/24 Mane Lee MD [address] [place] [address] PCP - [facility] Xxxxvsga12/20/25Team MemberRelationshipSpecialtyStart Date End Date Mane Lee MD [address] [place] [address] PCP - [employer]01/09/24 Mane Lee MD [address] [place] [address] PCP - [facility] Wayisoej35/20/25 Goals (unrecognized section and content) Goals may be documented in a n alternate sectionGoals may be documented in an alternate sectionGoals may be documented in an alternate sectionGoals may be documented in an alternate sectionGoals may be documented in an alternate section Reason for Visit (unrecogniz ed section and content) ReasonCommentsFollow-up1 mReasonCommentsFollow-upChest/head congestion, chills, HeadachReasonCommentsFollow-vg9pQfcx PainGetting bad againReasonComments Follow-up1 M ADIPEX F/UReasonOnset DateCommentsMed Ixlhap8303/22/2025Reason CommentsFollow-up2m f/upFallFell at work last weekReasonOnset DateCommentsMed Njuner6005/27/2025ReasonCommentsPainSpecialtyDiagnoses / ProceduresReferred By ContactReferred To ContactOrthopaedic Surgery Diagnoses Unspecified internal derangement of left knee Unilateral primary osteoarthritis, left knee Procedures [facility] Mane Lee MD [address] [place] [address] Phone: tel: fax: Jr. Laurel Hayward, [address] [facility] [address] [place] [address] Phone: tel: fax: Referral IDStatusReasonStart DateExpiration DateVisits RequestedVisits [id number] FOR RECORDS PERTAINING TO PATIENTS WHO ARE [...] BE BASED ON THE PRIMARY CLINICAL RECORDS. [facility] [employer] provides no warranty or guarantee of the accuracy or completeness of information in this document.
[2025-10-11 12:26] LABS: Potassium 3.4 mmol/L (3.5-5.1)
== END 2025-10-11 11:50 | disposition home or self-care (01) ==
PROVIDERS: PCP Family Medicine; Visit Provider Personal Emergency Response Attendant
DX: Z01.818 Encounter for other preprocedural examination (principal); E87.6 Hypokalemia
CPT/HCPCS: 36415; 84132